=== PATIENT | male | born 1975 | race Caucasian/White ===

== ENCOUNTER 2021-12-09 07:31 | Observation (INO) | payer OTHER, SELFPAY ==
[2021-12-09] VITALS (14 sets, daily range): BP systolic 127–159; BP diastolic 82–98; PULSE 68–83; RESP 18–20; TEMP 36.2–36.6; O2SAT 93–97; BMI 36.2; BMI 36.9
--- NOTE | 2021-12-09 08:28 | ED.GENADULT ---
HPI - General Adult General Date Seen: 12/09/21 Chief complaint: Abdominal Pain Stated complaint: Pancreatitis Time Seen by Provider: 12/09/21 08:04 Source: patient History of Present Illness HPI narrative: Patient is a 46-year-old male who comes in saying he has been diagnosed previously with pancreatic insufficiency. He takes enzymes for that, says he has been prescribed amitriptyline for his symptoms as well although that interacted with his buspirone. He had been on disability for 3 months, but says his FMLA and he has been back at work for the past several days. He feels he was sent back to work prematurely. For the past couple of mornings, he says he has woken up with nausea and dry heaves as well as epigastric pain. Appetite has been decreased. Pain is crampy, moderate, does not radiate. He has not had any vomiting. He took some Zofran this morning for his symptoms. He has also had headache and fatigue. He has not had any fever. He has chronic diarrhea, nonbloody. He has not had any chest pain or difficulty breathing. No urinary symptoms such as dysuria, hematuria, frequency, although he has had decreased output and feels his urine is dark. He normally gets his medical care in [place]. He does follow with a medical services manager through [facility]. Related Data Home Medications Medication Instructions Recorded Confirmed buspirone 10 mg tablet 10 mg PO TID 12/09/21 12/09/21 glipizide 10 mg tablet, extended 10 mg PO BIDWM 12/09/21 12/09/21 release 24 hr insulin degludec 100 unit/mL (3 160 unit SUBCUT QPM 12/09/21 12/09/21 mL) subcutaneous pen (Tresiba FlexTouch U-100 insulin) lipase 37,000-protease 2 cap PO TIDWM 12/09/21 12/09/21 97,300-amylase 149,900 unit capsule,delayed rel (Pancreaze) lisinopril 10 mg tablet 10 mg PO DAILY 12/09/21 12/09/21 lorazepam 1 mg tablet 1 mg PO TID PRN 12/09/21 12/09/21 ondansetron 4 mg disintegrating 4 mg PO TID PRN 12/09/21 12/09/21 tablet Allergies Allergy/AdvReac Type Severity Reaction Status Date / Time clindamycin Allergy Verified 12/09/21 07:46 diphenhydramine Allergy Verified 12/09/21 07:46 dulaglutide Allergy Verified 12/09/21 07:46 erythromycin base Allergy Verified 12/09/21 07:46 Penicillins Allergy Verified 12/09/21 07:46 vancomycin Allergy Verified 12/09/21 07:46 bactrim Allergy Uncoded 12/09/21 07:46 metform Allergy Uncoded 12/09/21 07:46 Review of Systems Status of ROS: Reports: 10 or more systems reviewed and unremarkable except as noted in History and below [facility] Medical History (Updated 12/09/21 @ 14:28 by Ramirez Chinchilla MD) Anxiety Chronic pancreatitis Diabetes mellitus type 2 in obese Obesity Pancreatic insufficiency Family History (Updated 12/09/21 @ 14:23 by Ramirez Chinchilla MD) Mother Crohn's disease Autoimmune disease of liver Cirrhosis of liver Father Colon cancer Social History (Updated 12/09/21 @ 14:24 by Ramirez Chinchilla MD) Narrative: He lives in [place] with his and 18-year-old daughter. is healthcare power of united [place] attorney. 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 He has been temporarily on disability. He does not smoke, drink alcohol or use recreational drugs. Code status is full. Smoking Status: Never smoker Do you use any of these nicotine containing products: None Second hand tobacco smoke exposure: No How often do you have a drink containing alcohol: never AUDIT-C Alcohol total score: 0 Non-prescribed substance use: denies use service: No Exam Narrative: Exam Narrative: Vital signs as noted above. In general, an alert, well-appearing patient. Head: Normocephalic, atraumatic. Eyes: Pupils are equal reactive. Extraocular movements are full. Conjunctivae are normal. ENT: Mucous membranes are moist. Throat is normal. Neck: Supple without lymphadenopathy. Heart: Regular rate and rhythm. No murmur or rub. Lungs: Clear bilaterally. No increased work of breathing, crackles or wheezes. Abdomen: Soft and nondistended. Mild epigastric tenderness without rebound guarding or rigidity. No organomegaly. Extremities: Well perfused. No edema. No calf tenderness. Pulses intact. Neurologic: Patient is alert and oriented to person and place. Speech is fluent. Face is symmetric. Moves all extremities equally. Affect: Normal. Skin: Warm and dry. Well perfused. Const: Vital Signs, click to edit/add: Vital Signs - 24 hr 12/09/21 07:46 12/09/21 08:04 12/09/21 08:30 Temperature 97.2 F L Pulse Rate [Pulse Oximeter] 81 83 81 Respiratory Rate 18 18 Blood Pressure [Ri ght Upper Arm] 138/82 127/92 H 131/89 Pulse Oximetry 94 93 93 12/09/21 09:00 12/09/21 09:30 12/09/21 10:00 Temperature Pulse Rate [Pulse Oximeter] 71 81 70 Respiratory Rate 18 Blood Pressure [Ri ght Upper Arm] 130/86 131/90 H 132/90 H Pulse Oximetry 94 94 97 12/09/21 10:30 12/09/21 11:00 12/09/21 12:00 Temperature Pulse Rate [Pulse Oximeter] 74 83 68 Respiratory Rate 18 Blood Pressure [Ri ght Upper Arm] 138/90 H 139/95 H 133/87 Pulse Oximetry 97 97 95 12/09/21 12:30 Temperature Pulse Rate [Pulse Oximeter] 77 Respiratory Rate Blood Pressure [Ri ght Upper Arm] 140/97 H Pulse Oximetry 97 Course Course Hospital Course: We will go ahead and place an IV, give of 1000 mL of normal saline and some Toradol. He took Zofran at home. Labs are pending. Vital signs are reassuring. He does not look toxic. Diagnostic considerations include pancreatitis, gastritis/peptic ulcer disease, gastroenteritis, diverticulitis, colitis, cholecystitis, hepatitis. Patient felt improved after Toradol. Nausea was controlled by his own Zofran from home. Did not have any vomiting. His labs were overall reassuring, white count was normal, hemoglobin 15.6. Electrolytes were normal. Blood sugar was 169. LFTs notable for an AST of 40, ALT was normal. Bilirubin was normal, as was alk-phos. His lipase did return elevated at 771. I reviewed his previous records. He has had a previous admission here for pancreatitis. He has had previous CT scanning, has not shown evidence of pancreatic inflammation on imaging. He tells me he has had an endoscopic ultrasound via GI, he apparently had a small pancreatic cyst but other chandler no abnormalities. At this time, I do not think there is probably benefit to CT scanning given otherwise normal labs. He is afebrile, abdominal exam is benign. I do think he would benefit from admission for hydration, pain control and bowel rest. At this time, he is comfortable after Toradol. We are awaiting bed on the floor, at this time we do not have any available beds but I am told that we should have some within the next couple of hours, so we will plan to keep him here for admission. Reevaluation(s) Reevaluation #1: Patient did have increasing pain here, will be given morphine 4 mg for further pain control. Vital signs remained stable. Vital Signs Vital signs: Initial Vital Signs Temperature 97.2 F L 12/09/21 07:46 Temperature Source Temporal Artery Scan 12/09/21 07:46 Pulse Rate 81 12/09/21 07:46 Pulse Rhythm 12/09/21 07:46 Respiratory Rate 18 12/09/21 07:46 Blood Pressure 138/82 12/09/21 07:46 Blood Pressure Mean 100 12/09/21 07:46 Pulse Oximetry 94 12/09/21 07:46 Oxygen Delivery Method 12/09/21 07:46 Vital Signs Temperature 97.2 F L 12/09/21 07:46 Pulse Rate 81 12/09/21 07:46 Respiratory Rate 18 12/09/21 07:46 Blood Pressure 138/82 12/09/21 07:46 Pulse Oximetry 94 12/09/21 07:46 Temperature 97.2 F L 12/09/21 07:46 Pulse Rate 77 12/09/21 12:30 Respiratory Rate 18 12/09/21 12:00 Blood Pressure 140/97 H 12/09/21 12:30 Pulse Oximetry 97 12/09/21 12:30 Medical Decision Making Lab Data Labs: Lab Results 12/09/21 12/09/21 12/09/21 Range/Units 08:25 08:25 08:25 WBC 6.37 (4.50-11.00) K/uL RBC 5.42 (4.30-5.90) m/uL Hgb 15.6 (13.5-17.5) gm/dL Hct 45.5 (37.0-53.0) % MCV 84 (80-100) fL MCH 29 (26-34) pg MCHC 34 (32-36) gm/dL RDW Coeff of Usman 12.0 (11.5-15.5) % Plt Count 163 (140-440) K/uL Neut % (Auto) 73.0 H (42.0-72.0) % Lymph % (Auto) 17.9 L (20-44) % [place] % (Auto) 7.2 (0.0-11.0) % Eos % (Auto) 1.4 (0.0-7.0) % Baso % (Auto) 0.3 (0.0-3.0) % Neut # (Auto) 4.70 (1.7-7.0) K/uL Lymph # (Auto) 1.10 (0.90-2.90) K/uL [place] # (Auto) 0.50 (0.00-0.90) K/UL Eos # (Auto) 0.09 (0.00-0.50) K/uL Baso # (Auto) 0.02 (0.00-0.30) K/uL Abs Immat Gran (auto) 0.01 (0.00-0.30) K/uL Sodium 138 (135-149) mmol/L Potassium 4.6 (3.6-5.1) mmol/L Chloride 105 (96-114) mmol/L Carbon Dioxide 27 (20-32) mmol/L BUN 19 (5-24) mg/dL Creatinine 0.9 (0.5-1.5) mg/dL Estimated Creat Clear 104.74 Estimated GFR 108 ml/min Glucose 169 H (60-115) mg/dL Lactate 1.4 (0.5-1.9) mmol/L Calcium 9.1 (8.4-10.6) mg/dL Total Bilirubin (0.1-1.5) mg/dL Direct Bilirubin (0.0-0.5) mg/dL AST (12-35) U/L ALT (4-50) U/L Alkaline Phosphatase (40-150) U/L C-Reactive Protein 0.7 (0.5-1.0) mg/dL Total Protein (6.0-8.3) g/dL Albumin (3.3-5.0) g/dL Lipase 771 H (23-300) U/L Ethyl Alcohol < 0.01 L (0.01-0.03) % SARS-CoV-2 (PCR) (Negative) 12/09/21 12/09/21 Range/Units 08:25 10:45 WBC (4.50-11.00) K/uL RBC (4.30-5.90) m/uL Hgb (13.5-17.5) gm/dL Hct (37.0-53.0) % MCV (80-100) fL MCH (26-34) pg MCHC (32-36) gm/dL RDW Coeff of Usman (11.5-15.5) % Plt Count (140-440) K/uL Neut % (Auto) (42.0-72.0) % Lymph % (Auto) (20-44) % [place] % (Auto) (0.0-11.0) % Eos % (Auto) (0.0-7.0) % Baso % (Auto) (0.0-3.0) % Neut # (Auto) (1.7-7.0) K/uL Lymph # (Auto) (0.90-2.90) K/uL [place] # (Auto) (0.00-0.90) K/UL Eos # (Auto) (0.00-0.50) K/uL Baso # (Auto) (0.00-0.30) K/uL Abs Immat Gran (auto) (0.00-0.30) K/uL Sodium (135-149) mmol/L Potassium (3.6-5.1) mmol/L Chloride (96-114) mmol/L Carbon Dioxide (20-32) mmol/L BUN (5-24) mg/dL Creatinine (0.5-1.5) mg/dL Estimated Creat Clear Estimated GFR ml/min Glucose (60-115) mg/dL Lactate (0.5-1.9) mmol/L Calcium (8.4-10.6) mg/dL Total Bilirubin 0.6 (0.1-1.5) mg/dL Direct Bilirubin 0.2 (0.0-0.5) mg/dL AST 40 H (12-35) U/L ALT 40 (4-50) U/L Alkaline Phosphatase 67 (40-150) U/L C-Reactive Protein (0.5-1.0) mg/dL Total Protein 7.4 (6.0-8.3) g/dL Albumin 4.1 (3.3-5.0) g/dL Lipase (23-300) U/L Ethyl Alcohol (0.01-0.03) % SARS-CoV-2 (PCR) Negative SARS-CoV-2 (Negative) Discharge Plan Discharge Clinical Impression: Pancreatitis Patient Disposition: Admitted As Inpatient Condition: Stable
[2021-12-09 08:42] LABS: Lactate* 1.4 mmol/L (0.5-1.9)
[2021-12-09 08:43] LABS: Basophils Absolute Auto 0.02 K/uL (0.00-0.30); Basophils Percent Auto 0.3 % (0.0-3.0); Eosinophils Absolute Auto 0.09 K/uL (0.00-0.50); Eosinophils Percent Auto 1.4 % (0.0-7.0); Hematocrit 45.5 % (37.0-53.0); Hemoglobin* 15.6 gm/dL (13.5-17.5); Immature Granulocytes Abs Auto 0.01 K/uL (0.00-0.30); Lymphocytes Percent Auto 17.9 % (20-44); Mean Corpuscular HGB Conc 34 gm/dL (32-36); Mean Corpuscular Hemoglobin 29 pg (26-34); Mean Corpuscular Volume 84 fL (80-100); Monocytes Percent Auto 7.2 % (0.0-11.0); Platelet Count* 163 K/uL (140-440); Red Blood Count 5.42 m/uL (4.30-5.90); White Blood Count* 6.37 K/uL (4.50-11.00)
[2021-12-09] MEDS: KETOROLAC 15 MG/ML inj IVP (08:43)
[2021-12-09] MEDS: 0.9 % SODIUM CHLORIDE 1000 ml 1,000 ML IV (08:43)
[2021-12-09 08:53] LABS: Slide Review Reflex No
[2021-12-09 09:03] LABS: Albumin* 4.1 g/dL (3.3-5.0)
[2021-12-09 09:06] LABS: Alanine Aminotransferase* 40 U/L (4-50); Alkaline Phosphatase* 67 U/L (40-150); Aspartate Amino Transferase* 40 U/L (12-35); Bilirubin Direct* 0.2 mg/dL (0.0-0.5); Bilirubin Total* 0.6 mg/dL (0.1-1.5); Total Protein* 7.4 g/dL (6.0-8.3)
[2021-12-09 09:14] LABS: Chloride* 105 mmol/L (96-114); Potassium* 4.6 mmol/L (3.6-5.1); Sodium* 138 mmol/L (135-149)
[2021-12-09 09:16] LABS: Blood Urea Nitrogen* 19 mg/dL (5-24); Carbon Dioxide* 27 mmol/L (20-32); Creatinine* 0.9 mg/dL (0.5-1.5); Est. Creatinine Clearance* 104.74; Estimated Glomerular Filt Rate 108 ml/min; Lipase* 771 U/L (23-300)
[2021-12-09 09:17] LABS: Calcium* 9.1 mg/dL (8.4-10.6); Glucose* 169 mg/dL (60-115)
[2021-12-09 09:19] LABS: C Reactive Protein* 0.7 mg/dL (0.5-1.0)
[2021-12-09 09:21] LABS: Ethanol* < 0.01 % (0.01-0.03)
--- NOTE | 2021-12-09 12:10 | W.PC.EDHO ---
Primary Language: Preferred Language: Orientation Status: [] Alert & Oriented [] Slight Confusion [] Known Dx Dementia Transfers By: [] Assist of 1 [] Assist of 2 [] Lift Active Medications Discontinued Medications Generic Name Dose Route Start Last Admin Trade Name Silvia PRN Reason Stop Dose Admin Sodium Chloride 1,000 mls @ 1,000 mls/hr 12/09/21 08:30 12/09/21 09:36 0.9 % Sodium Chloride 1000 Ml IV 12/09/21 09:29 Infused .Q1H [facility] Infusion Ketorolac Tromethamine 15 mg 12/09/21 08:24 12/09/21 08:43 Ketorolac 15 Mg/Ml Inj IVP 12/09/21 08:25 15 mg ONCE ONE Administration Description of Symptoms ED Triage Present Problem has been not working due to pancreatic Description insufficiency and diabetes for the past 3 months. was hospitalized in august for a week here. went back to work on monday. Sxs have been worsening, abd pain, nausea, vomiting bile. has no appetite, fatigued, headache, feeling dehydrated. ED Triage Date of Onset of 12/06/21 Symptoms Female History Patient No Pain Pain Description [Upper Pressure,Tender,With Movement Abdomen] Pain Description [Upper Pressure,Dull, Achy,Tender,With Movement Abdomen] Pain Radiation Location [Upper to right side Abdomen] Pain Intensity [Upper Abdomen] 7 Pain Intensity [Upper Abdomen] 6 Pain Intensity 5 Pain Intensity 4 Pain Intensity 7 Pain Intensity 7 Pain Intensity 7 Pain Scale Used [Upper Abdomen Numeric (1 - 10) ] Pain Scale Used [Upper Abdomen Numeric (1 - 10) ] Pain Scale Used Numeric (1 - 10) Pain Scale Used Numeric (1 - 10) Pain Scale Used Numeric (1 - 10) Pain Scale Used Numeric (1 - 10) Pain Scale Used Numeric (1 - 10) IV Insertion/Site Date of IV Line Insertion [ 12/09/21 Left Hand] Oxygen Administration Pulse Oximetry 93 Pulse Oximetry 93 Pulse Oximetry 94 Oxygen Delivery Method Room Air Oxygen Delivery Method Room Air Oxygen Delivery Method Room Air
[2021-12-09 12:14] LABS: SARS PCR* Negative SARS-CoV-2 (Negative)
[2021-12-09] MEDS: MORPHINE 4 MG/ML INJ IVP ×3 (12:36→19:29)
--- NOTE | 2021-12-09 12:39 | ED.NURSE ---
was seen per dr soria. has had 4 mg iv ms. pain was 8/10. festus is here.
[2021-12-09] MEDS: PANCREALIPASE (12,38,60) CAP 3 CAP PO (13:47)
[2021-12-09] MEDS: LACTATED RINGERS 1000 ML 1,000 ML 150 ML IV ×2 (13:52→20:43)
--- NOTE | 2021-12-09 14:07 | P.IMHP_ITS ---
Hospitalist- H&P: HPI History of Present Illness Date Seen: 12/09/21 Chief complaint: Pancreatitis Narrative: Kaiden Reyna is a 46 year old male presents with acute on chronic epigastric pain. This week he has had worsening of his chronic epigastric pain, subjective fever, anorexia and nausea with 1 emesis. He has been avoiding eating as it makes his pain and nausea worse. He has previous history of chronic pancreatitis and pancreatic insufficiency. He was hospitalized here July 26 to 2021 for similar problems. At that time he had CT of the abdomen and pelvis which was unremarkable except for fatty liver. MRCP was also unremarkable. He has had mild elevation of lipase on and off over the past year associated with abdominal pain. Since July he reports his abdominal pain it has been constant. It is epigastric. Sometimes it does go through to his back. When his abdominal pain flares he notes that he has nausea and loss of appetite. His abdominal pain flares it does increase his pain when he eats. He particularly notes he sensitive to eating meat which makes him worse. He has been to [facility] where he has had fairly extensive evaluation for idiopathic pancreatitis. They have initiated treatment with pancreatic enzyme replacement with pancrelipase. That has helped his stools become more firm. He is currently taking 2 tablets with each meal. Evaluation has included an colonoscopy including the terminal ileum in August which was unremarkable and endoscopic ultrasound which showed fatty liver and scattered nonspecific pancreatic parenchymal changes. He was given a trial of nortriptyline which if anything made him feel worse. He still has his gallbladder in place. Evaluation has not shown any evidence of gallbladder disease, gallstones or biliary obstruction. He does not drink alcohol. He does give a family history of mother and maternal grandmother both having pancreatic and hepatic disease. Mom had cirrhosis of the liver that was possibly autoimmune. I believe she also had Crohn's disease. Maternal grandmot her may have also had some form of autoimmune liver disease. Review of Systems Narrative: Patient reports that he has been generally feeling well except as noted above. He does report chronic epigastric pain which has flared up this week. He has had poor p.o. intake, nausea and 1 emesis. Stools tend to be low on the loose side. Rarely he gets constipated which is painful for him. No blood in his stool. He has a subjective sense of fever. [facility] Medical History (Updated 12/09/21 @ 14:28 by Ramirez Chinchilla MD) Anxiety Chronic pancreatitis Diabetes mellitus type 2 in obese Obesity Pancreatic insufficiency Family History (Updated 12/09/21 @ 14:23 by Ramirez Chinchilla MD) Mother Crohn's disease Autoimmune disease of liver Cirrhosis of liver Father Colon cancer Social History (Updated 12/09/21 @ 14:24 by Ramirez Chinchilla MD) Narrative: He lives in [place] with his and 18-year-old daughter. is healthcare power of visual journalist. 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 He has been temporarily on disability. He does not smoke, drink alcohol or use recreational drugs. Code status is full. Smoking Status: Never smoker Do you use any of these nicotine containing products: None Second hand tobacco smoke exposure: No How often do you have a drink containing alcohol: never AUDIT-C Alcohol total score: 0 Non-prescribed substance use: denies use service: No Meds Home Medications and Allergies Home Medications Medication Instructions Recorded Confirmed Type buspirone 10 mg tablet 10 mg PO TID 12/09/21 12/09/21 History glipizide 10 mg tablet, extended 10 mg PO BIDWM 12/09/21 12/09/21 History release 24 hr insulin degludec 100 unit/mL (3 160 unit SUBCUT QPM 12/09/21 12/09/21 History mL) subcutaneous pen (Tresiba FlexTouch U-100 insulin) lipase 37,000-protease 2 cap PO TIDWM 12/09/21 12/09/21 History 97,300-amylase 149,900 unit capsule,delayed rel (Pancreaze) lisinopril 10 mg tablet 10 mg PO DAILY 12/09/21 12/09/21 History lorazepam 1 mg tablet 1 mg PO TID PRN 12/09/21 12/09/21 History ondansetron 4 mg disintegrating 4 mg PO TID PRN 12/09/21 12/09/21 History tablet Allergies Allergy/AdvReac Type Severity Reaction Status Date / Time clindamycin Allergy Verified 12/09/21 07:46 diphenhydramine Allergy Verified 12/09/21 07:46 dulaglutide Allergy Verified 12/09/21 07:46 erythromycin base Allergy Verified 12/09/21 07:46 Penicillins Allergy Verified 12/09/21 07:46 vancomycin Allergy Verified 12/09/21 07:46 bactrim Allergy Uncoded 12/09/21 07:46 metform Allergy Uncoded 12/09/21 07:46 Exam Narrative: Exam Narrative: He is alert and appears in no distress. He gives his own history with good detail. Eyes are normal. Sclerae nonicteric. Oropharynx is normal. Neck is supple without mass or adenopathy. Respirations are clear to auscultation. No wheezing rales or rhonchi. Cardiovascular: S1, S2, regular rate and rhythm. No murmur gallop or rub. Abdomen: Bowel sounds active. Abdomen is soft. He has mild to moderate epigastric tenderness. There is no mass. No peritonitis. External genitalia normal. Extremities with intact pulses and sensation. He moves all 4 extremities well. Good capillary refill. Trace ankle edema bilaterally. Const: Vital Signs, click to edit/add: Vital Signs - 24 hr 12/09/21 07:46 12/09/21 08:04 12/09/21 08:30 Temperature 97.2 F L Pulse Rate [Pulse Oximeter] 81 83 81 Respiratory Rate 18 18 Blood Pressure [Ri ght Upper Arm] 138/82 127/92 H 131/89 Pulse Oximetry 94 93 93 Documenting provider has reviewed patient's vital signs: yes Hospitalist - H&P: Result Labs Labs: Short CBC 12/09/21 Range/Units 08:25 WBC 6.37 (4.50-11.00) K/uL Hgb 15.6 (13.5-17.5) gm/dL Hct 45.5 (37.0-53.0) % Plt Count 163 (140-440) K/uL [facility] 12/09/21 08:25 Sodium 138 Potassium 4.6 Chloride 105 Carbon Dioxide 27 BUN 19 Creatinine 0.9 Glucose 169 H Calcium 9.1 Liver Function 12/09/21 Range/Units 08:25 Total Bilirubin 0.6 (0.1-1.5) mg/dL Direct Bilirubin 0.2 (0.0-0.5) mg/dL AST 40 H (12-35) U/L ALT 40 (4-50) U/L Alkaline Phosphatase 67 (40-150) U/L Albumin 4.1 (3.3-5.0) g/dL Assessment and Plan Assessment and plan (1) Pancreatitis: Status: Acute Assessment and Plan: Patient appears to have an acute on chronic flare of pancreatitis. This is idiopathic. Further outpatient evaluation is pending. At this point there is no indication of a serious complication of his pancreatitis other than epigastric pain, nausea, vomiting and anorexia. He has not had imaging and I think we can hold off on imaging unless he is not improving or at any point getting worse. Will allow him to eat as he tolerates. IV pain medications, antiemetics, IV fluids. (2) Chronic pancreatitis: Status: Acute Assessment and Plan: Idiopathic (3) Pancreatic insufficiency: Status: Acute Assessment and Plan: Continue pancrelipase (4) Diabetes mellitus type 2 in obese: Status: Acute Assessment and Plan: Continue home regimen for diabetes with sliding scale insulin. Plan Discussed plan of care with the patient and his . At this point the cause of his pancreatic disease is uncertain. It appears most appropriate to do conservative medical management unless his illness becomes worse or more complicated. Total time spent today is 75 minutes, 40 minutes in coordination of care discussing with patient and other providers the evaluation and management of acute on chronic abdominal pain/acute on chronic pancreatitis.
[2021-12-09] MEDS: BUSPIRONE 10 MG TABLET PO ×2 (14:11→20:44)
--- NOTE | 2021-12-09 15:35 | PC.NURSE ---
Patient admitted from ED via w/c to room 279 at 12:54 pm. Initial physical assessment competed by primary care RN. Deepali and dtr Diane present for initial assessment. Pt's BG 82 and he received some cranberry and apple juice. Pt to judiciously select his meals secondary to his chronic pancreatitis, pt verbalized understanding of low fat diet, he is to avoid greasy, spicy and acidic food. Pancrealipase 3 capsules provided prior to his lunch tray. LR running at 150cc/hr. Pt received morphine 4mg slow IVP for substernal pain 6 out of 10 with his scheduled dose of buspar. Pt stated he will have his bring in his tresiba pen. Pt has SQ glucose monitor in place, no insulin pump. Report to Anayeli Bashir RN for evening shift.
[2021-12-09] MEDS: ONDANSETRON 2 MG/ML inj 4 MG IVP ×3 (15:38→23:26)
[2021-12-09] MEDS: KETOROLAC 30 MG/ML inj 15 MG IVP (15:38)
--- NOTE | 2021-12-09 23:17 | PC.NURSE ---
Patient reporting nausea this shift along with upper abdominal pain. Zofran, Toradol and Morphine given with relief. Patient states that he is feeling much better this evening. Monitoring blood glucose via Freestyle monitor. Blood sugar at bedtime was 96. Juice given per patient request and insulin not given. Patient had an increased pain after attempting to eat a regular diet for lunch. Patient did not have anything to eat for evening meal. Took clear liquids only.
[2021-12-09] MEDS: LORazepam 1 MG TABLET PO (23:26)
[2021-12-10 00:41] VITALS: BP 132/97; PULSE 82; RESP 16; TEMP 36.4; O2SAT 95
[2021-12-10] MEDS: LACTATED RINGERS 1000 ML 1,000 ML 150 ML IV ×2 (02:25→08:43)
[2021-12-10 04:11] VITALS: BP 139/82; PULSE 78; RESP 16; TEMP 36.7; O2SAT 94
--- NOTE | 2021-12-10 05:02 | PC.NURSE ---
VSS RA. Denies pain. Zofran given for mild nausea. Ativan given for sleep/nausea as well. Bowel tones hypoactive. Tolerating clear liquids and IVF cont's. Up ad mitzi ind w/cares
[2021-12-10 07:45] VITALS: PULSE 80; RESP 16
[2021-12-10 08:00] VITALS: BP 160/99; PULSE 80; RESP 16; TEMP 36.4; O2SAT 98
[2021-12-10] MEDS: ONDANSETRON 2 MG/ML inj 4 MG IVP (08:42)
[2021-12-10] MEDS: MORPHINE 4 MG/ML INJ IVP (08:42)
[2021-12-10] MEDS: BUSPIRONE 10 MG TABLET PO (08:43)
[2021-12-10] MEDS: lisinopriL 10 MG TABLET PO (08:43)
--- NOTE | 2021-12-10 09:05 | NUTR.NU ---
Nutrition Update: Patient admitted to hospital with acute on chronic pancreatitis. Pt was admitted to hospital from 07/26/21 to 07/28/21 for pancreatitis and received diet education related to pancreatitis on 07/27/21. Pt received and accepted diet education related to pancreatitis within the last 6 months - RDN will not provide diet education at this time. RDN will monitor and follow-up prn.
[2021-12-10 10:02] LABS: HCO3 VBG 27 mmol/L (21-28); Lactate* 1.3 mmol/L (0.5-1.9); PCO2 VBG 40 mmHG (40-50); PO2 VBG 63.2 mmHG (25-47); pH VBG 7.447 (7.32-7.43)
[2021-12-10 10:06] LABS: Hematocrit 44.2 % (37.0-53.0); Hemoglobin* 15.1 gm/dL (13.5-17.5); Mean Corpuscular HGB Conc 34 gm/dL (32-36); Mean Corpuscular Hemoglobin 29 pg (26-34); Mean Corpuscular Volume 85 fL (80-100); Platelet Count* 162 K/uL (140-440); Red Blood Count 5.22 m/uL (4.30-5.90); White Blood Count* 7.27 K/uL (4.50-11.00)
[2021-12-10 10:12] LABS: Slide Review Reflex No
[2021-12-10 10:21] LABS: Albumin* 3.8 g/dL (3.3-5.0); Chloride* 106 mmol/L (96-114)
[2021-12-10 10:22] LABS: Sodium* 137 mmol/L (135-149)
[2021-12-10 10:23] LABS: Hemoglobin A1C* 8.29 % (0-5.6)
[2021-12-10 10:24] LABS: Bilirubin Total* 0.5 mg/dL (0.1-1.5); Creatinine* 0.8 mg/dL (0.5-1.5); Est. Creatinine Clearance* 117.83; Estimated Glomerular Filt Rate 112 ml/min
[2021-12-10 10:25] LABS: Alanine Aminotransferase* 37 U/L (4-50); Alkaline Phosphatase* 62 U/L (40-150); Aspartate Amino Transferase* 37 U/L (12-35); Blood Urea Nitrogen* 13 mg/dL (5-24); Calcium* 8.6 mg/dL (8.4-10.6); Carbon Dioxide* 24 mmol/L (20-32); Cholesterol* 172 mg/dL (90-199); Gamma Glutamyl Transpeptidase* 41 U/L (8-55); Glucose* 152 mg/dL (60-115); Lipase* 117 U/L (23-300); Magnesium* 1.9 mg/dL (1.5-2.6); Total Protein* 6.7 g/dL (6.0-8.3); Triglycerides* 109 mg/dL (40-149)
[2021-12-10 10:26] LABS: HDL Cholesterol* 35 mg/dL (>=40); LDL Cholesterol Calculated 115 mg/dL (<100)
[2021-12-10 10:34] LABS: NT Pro B Type NatriureticPept* 112 PG/mL (0-125)
[2021-12-10 10:35] LABS: Iron* 67 ug/dL (49-181)
[2021-12-10 10:37] LABS: C Reactive Protein* < 0.5 mg/dL (0.5-1.0)
[2021-12-10 10:45] LABS: Percent Iron Saturation 22 % (20-50); Total Iron Binding Capacity 301 ug/dL (261-462)
[2021-12-10] MEDS: PANCREALIPASE (12,38,60) CAP 3 CAP PO (11:51)
--- NOTE | 2021-12-10 17:36 | PM.DS1 ---
DS: Providers Provider Date Seen: 12/10/21 Date of admission: 12/09 Primary care physician: Gallo Mejia MD Admitting Clinician: [facility] Service Attending Physician on discharge: Mariel Ross MD [facility] Date of Discharge: 12/10/21 DS: Diagnosis Discharge Diagnosis (1) Diabetes mellitus type 2 in obese: Status: Acute (2) Chronic pancreatitis: Status: Acute (3) Pancreatic insufficiency: Status: Acute (4) Pancreatitis: Status: Acute DS: Summary Hospital Course Hospital Course: HOSPITALIST DISCHARGE SUMMARY ATTENDING PHYSICIAN: Mariel Ross MD FINAL DIAGNOSIS: Chronic pancreatitis Pain crisis Dehydration HOSPITAL FOLLOWUP ISSUES: 1. Gastroenterology subspecialty as planned by [facility] and [place] [facility] this fall REFERRALS WHILE ADMITTED: None REFERRALS AFTER DISCHARGE: None BRIEF HOSPITAL COURSE: Patient has chronic pancreatitis. His pain, history is not new. Please see H&P for further detail. Overnight he did well. He felt much improved when I saw him this morning. He was able to tolerate food. His pain was minimal. He did like the IV Toradol he was given and will be given a trial of 5 days of oral ketorolac VITAL SIGN, MEDICATION, LAB/MICRO, IMAGING SUMMARY (full details available in account tabs or by records request) Lipase down trended significantly DISCHARGE MEDICATIONS: See Reconciled list REVIEW OF SYSTEMS No new chest pain or dyspnea Pain controlled No voiding difficulties Tolerating diet challenge PHYSICAL EXAM: CONSTITUTIONAL: Well-appearing VITAL SIGNS: see record. HEENT: Normocephalic, atraumatic. PERRL, EOMI, conjunctivae pink, no scleral icterus. Ears and nose externally normal. Pharynx normal. NECK: No JVD. No carotid bruit, no thyromegaly, no adenopathy. CHEST: Clear to auscultation bilaterally. HEART: S1 and S2 normal. Edema ABDOMEN: Soft, nontender. Normal bowel sounds. MUSCULOSKELETAL: No gross joint deformity or swelling. NEURO: Cranial nerves intact. Grossly intact. No asymmetric findings. SKIN: No rashes, petechiae, concerning changes PSYCHIATRIC: Mood euthymic. DISPOSITION: Home Time spent on discharge 37 minutes. Status at Discharge Overall status at discharge: patient is back to baseline Time Spent with Patient Time attestation: Total time spent providing and/or coordinating discharge services: Exam Const: Vital Signs, click to edit/add: Vital Signs - 24 hr 12/09/21 19:00 12/10/21 00:41 12/10/21 04:11 Temperature 98 F 97.6 F 98.1 F Pulse Rate [Left A pical] 72 82 78 Respiratory Rate 20 16 16 Blood Pressure [Ri ght Arm] 159/98 H 132/97 H 139/82 Pulse Oximetry 97 95 94 12/10/21 07:45 12/10/21 08:00 Temperature 97.6 F Pulse Rate [Left A pical] 80 80 Respiratory Rate 16 16 Blood Pressure [Ri ght Arm] 160/99 H Pulse Oximetry 98 DS: Data Data Completed and Pending Labs on day of discharge: Labs from last 24 hours 12/10/21 12/10/21 12/10/21 09:44 09:44 09:44 WBC RBC Hgb Hct MCV MCH MCHC Plt Count VBG pH 7.447 H VBG pCO2 40 VBG pO2 63.2 H VBG HCO3 27 Sodium Potassium Chloride Carbon Dioxide BUN Creatinine Estimated Creat Clear Estimated GFR Glucose Hemoglobin A1c 8.29 H Lactate 1.3 Calcium Magnesium Iron TIBC % Saturation Ferritin 238.0 Total Bilirubin GGT AST ALT Alkaline Phosphatase C-Reactive Protein NT-Pro-B Natriuret Pep Total Protein Albumin Triglycerides Cholesterol LDL Cholesterol, Calc HDL Cholesterol Lipase TSH 1.500 12/10/21 12/10/21 12/10/21 09:44 09:44 09:44 WBC 7.27 RBC 5.22 Hgb 15.1 Hct 44.2 MCV 85 MCH 29 MCHC 34 Plt Count 162 VBG pH VBG pCO2 VBG pO2 VBG HCO3 Sodium 137 Potassium 4.0 Chloride 106 Carbon Dioxide 24 BUN 13 Creatinine 0.8 Estimated Creat Clear 117.83 Estimated GFR 112 Glucose 152 H Hemoglobin A1c Lactate Calcium 8.6 Magnesium 1.9 Iron 67 TIBC 301 % Saturation 22 Ferritin Total Bilirubin 0.5 GGT 41 AST 37 H ALT 37 Alkaline Phosphatase 62 C-Reactive Protein < 0.5 L NT-Pro-B Natriuret Pep 112 Total Protein 6.7 Albumin 3.8 Triglycerides 109 Cholesterol 172 LDL Cholesterol, Calc 115 H HDL Cholesterol 35 L Lipase 117 TSH Discharge Plan Discharge Disposition: Home, Self-Care Date of Admission: 12/10/21 10:09 Attending Provider on Discharge: Mariel Ross Primary Care Provider: Gallo Mejia Condition: Stable Anticipated Discharge Date/Time: 12/10/21 13:54 Discharge Medications: New ketorolac 10 mg tablet 10 mg PO TID 5 Days Qty: 15 0RF Continued buspirone 10 mg tablet 10 mg PO TID 0RF Label Comments: TAKE 1 TABLET BY MOUTH THREE TIMES DAILY Pancreaze 37,000-97,300- 149,900 unit capsule,delayed release(DR/EC) 2 cap PO TIDWM 0RF Label Comments: TAKE 2 CAPSULES BY MOUTH THREE TIMES DAILY WITH MEALS & 1 CAPSULE WITH EACH SNACK SWALLOWING WHOLE. DO NOT CRUSH, CHEW, AND/OR DIVIDE lisinopril 10 mg tablet 10 mg PO DAILY 0RF Label Comments: TAKE 1 TABLET BY MOUTH ONCE DAILY Tresiba FlexTouch U-100 100 unit/mL (3 mL) insulin pen 160 unit SUBCUT QPM 0RF lorazepam 1 mg tablet 1 mg PO TID PRN0RF glipizide 10 mg tablet extended release 24hr 10 mg PO BIDWM 0RF Label Comments: TAKE 1 TABLET BY MOUTH TWICE DAILY BEFORE MEALS ondansetron 4 mg tablet,disintegrating 4 mg PO TID PRN0RF Label Comments: DISSOLVE 1 TABLET IN MOUTH EVERY 8 HOURS NEEDED FOR NAUSEA AND VOMITING Discharge Orders: Discharge Order (Routine); Ordered 12/10/21 Ordered By: Mariel Ross Patient Education: Ketorolac (By mouth), Pancreatitis (GEN) Activity Level: Activity as Tolerated Discharge Diet: Diabetic Follow Up Appointments: Gallo Mejia MD [Primary Care Provider] - (As needed) Forms: [facility] Info Instructions
== END 2021-12-10 14:38 | disposition home or self-care (01) ==
LOC: ED 09:54 → MEDSURG 13:18
PROVIDERS: Family Medicine; Admitting Provider Family Medicine; Emergency Provider Emergency Medicine; PCP Family Medicine; Visit Provider Family Medicine
DX: K85.90 Acute pancreatitis without necrosis or infection, unspecified (principal); K86.1 Other chronic pancreatitis; K86.89 Other specified diseases of pancreas; E11.9 Type 2 diabetes mellitus without complications; Z79.4 Long term (current) use of insulin; E66.9 Obesity, unspecified
CPT/HCPCS: 36415; 80048; 80053; 80061; 80076; 82077; 82728; 82803; 82947; 82977; 83036; 83540; 83550; 83605; 83690; 83735; 83880; 84443; 85025; 85027; 86140; 87635; 96361; 96374; 96375; 96376; 99284; A9270; G0378; J1885; J2270; J2405; J7030; J7120

== ENCOUNTER 2021-12-21 06:47 | Emergency (ER) | payer OTHER, SELFPAY ==
[2021-12-21 06:56] VITALS: BP 152/106; PULSE 88; RESP 16; TEMP 37; O2SAT 97; BMI 36.9
--- NOTE | 2021-12-21 07:29 | ED_ITS ---
HPI - General Adult General Time Seen by Provider: 07:29 Date Seen: 12/21/21 Chief complaint: Unspecified Complaint, Adult Stated complaint: wound infection/multiple locations/feverish Time Seen by Provider: 12/21/21 07:18 Source: patient and RN notes reviewed Mode of arrival: ambulatory Limitations: no limitations History of Present Illness HPI narrative: Patient is a 46-year-old male ambulatory in the ER with complaint of possible secondary infection road rash. Last Monday he took a spill off of a scooter and got abrasions on his elbow areas as well as his knees. The left knee anteriorly as well as the left forearm hurts the most. States they are a bit more swollen last night. Nursing staff did look up his tetanus and it is up-to-date in 2018. He has felt a little feverish overnight but no documented temperature. He has nothing else in the way of symptoms to explain getting L such is cough cold symptoms, respiratory symptoms, no urinary symptoms, no change in any abdominal symptoms. He does state the knee hurt a bit I did offer patient x-ray of his knee while he was here but he did decline. Related Data Home Medications Medication Instructions Recorded Confirmed buspirone 10 mg tablet 10 mg PO TID 12/09/21 12/21/21 glipizide 10 mg tablet, extended 10 mg PO BIDWM 12/09/21 12/21/21 release 24 hr insulin degludec 100 unit/mL (3 160 unit subcut QPM 12/09/21 12/21/21 mL) subcutaneous pen (Tresiba FlexTouch U-100 insulin) lipase 37,000-protease 2 cap PO TIDWM 12/09/21 12/21/21 97,300-amylase 149,900 unit capsule,delayed rel (Pancreaze) lisinopril 10 mg tablet 10 mg PO DAILY 12/09/21 12/21/21 lorazepam 1 mg tablet 1 mg PO TID PRN 12/09/21 12/21/21 ondansetron 4 mg disintegrating 4 mg PO TID PRN 12/09/21 12/21/21 tablet amitriptyline 10 mg tablet mg 12/21/21 glucagon 1 mg solution for mg 12/21/21 injection (Glucagon Emergency Kit) ibuprofen 12/21/21 omeprazole 40 mg capsule,delayed mg 12/21/21 release pyridoxine (vitamin B6) 25 mg mg 12/21/21 tablet (Vitamin B-6) Previous Rx's Medication Instructions Recorded cephalexin 500 mg tablet 500 mg PO QID #28 tabs 12/21/21 Allergies Allergy/AdvReac Type Severity Reaction Status Date / Time clindamycin Allergy Verified 12/21/21 07:02 diphenhydramine Allergy Verified 12/21/21 07:02 dulaglutide Allergy Verified 12/21/21 07:02 erythromycin base Allergy Verified 12/21/21 07:02 Penicillins Allergy Verified 12/21/21 07:02 vancomycin Allergy Verified 12/21/21 07:02 bactrim Allergy Uncoded 12/21/21 07:02 Review of Systems Status of ROS: Reports: 6 or more systems reviewed and unremarkable except as noted in History and below [facility] Medical History (Updated 12/21/21 @ 07:41 by Qian Parra MD) Anxiety Chronic pancreatitis Diabetes mellitus type 2 in obese Obesity Pancreatic insufficiency Family History (Updated 12/09/21 @ 14:23 by Ramirez Chinchilla MD) Mother Crohn's disease Autoimmune disease of liver Cirrhosis of liver Father Colon cancer Social History (Updated 12/09/21 @ 14:24 by Ramirez Chinchilla MD) Narrative: He lives in [place] with his and 18-year-old daughter. is healthcare power of research attorney. 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 He has been temporarily on disability. He does not smoke, drink alcohol or use recreational drugs. Code status is full. Smoking Status: Never smoker Do you use any of these nicotine containing products: None Second hand tobacco smoke exposure: No How often do you have a drink containing alcohol: never AUDIT-C Alcohol total score: 0 Non-prescribed substance use: denies use service: No Exam Const: Vital Signs, click to edit/add: Vital Signs - 24 hr 12/21/21 06:56 Temperature 98.6 F Pulse Rate [Left P ulse Oximeter] 88 Respiratory Rate 16 Blood Pressure [Ri ght Upper Arm] 152/106 H Pulse Oximetry 97 Oxygen Delivery Me thod Room Air Documenting provider has reviewed patient's vital signs: yes Common normals: no apparent distress, oriented x3, no limitations, healthy appearing and alert General appearance: cooperative, comfortable and well kempt Nutritional appearance: overweight HENMT: Common normals: normocephalic, head/scalp atraumatic and hearing grossly normal bilaterally Head and scalp: normocephalic and atraumatic Eye: Common normals: PERRL, EOMs intact bilaterally, conjunctivae normal and no scleral icterus Conjunctiva: conjunctiva(e) normal Pupil: PERRL Neck & C-Spine: Common normals: no JVD Resp: Common normals: normal respiratory effort, no retractions, no use of accessory muscles and clear to auscultation bilaterally Auscultation: clear to auscultation bilaterally Cardio: Common normals: no JVD, regular rate, regular rhythm, S1 normal heart sound, S2 normal heart sound, no gallops, no clicks and no murmurs Rate: regular rate Rhythm: regular rhythm Heart sounds: S1 normal and S2 normal Extremity: Other: On the medial aspect of both forearms as well as on both elbows, there is scabbed areas. The 1 on the medial left forearm looks more erythematous around the scab and does have some heat. There is no fluctuance, there is no purulent drainage. He did show me the abrasions on the anterior knees and on my inspection these look clean dry and intact. He has no effusion along the joint line of this left knee. He can stand without difficulty. He is declining x- ray. Neuro: Common normals: oriented x3 Sensorium/orientation: alert Psych: Appearance: [facility] Course Course Hospital Course: Patient was evaluated, nursing staff did check his tetanus status and it is indeed up-to-date. I did look at an old records to see if we have any MRSA documentation are microbiology. We have no wound microbiology on him. He is allergic to clindamycin, erythromycin, penicillin, vancomycin, Bactrim. At this point I think I will cover him with a cephalosporin with Keflex and have him closely followed up with his primary. He has normal recent kidney function in our records. Vital Signs Vital signs: Initial Vital Signs Temperature 98.6 F 12/21/21 06:56 Temperature Source Temporal Artery Scan 12/21/21 06:56 Pulse Rate 88 12/21/21 06:56 Respiratory Rate 16 12/21/21 06:56 Blood Pressure 152/106 H 12/21/21 06:56 Blood Pressure Mean 121 12/21/21 06:56 Blood Pressure Position Standing 12/21/21 06:56 Pulse Oximetry 97 12/21/21 06:56 Oxygen Delivery Method 12/21/21 06:56 Vital Signs Temperature 98.6 F 12/21/21 06:56 Pulse Rate 88 12/21/21 06:56 Respiratory Rate 16 12/21/21 06:56 Blood Pressure 152/106 H 12/21/21 06:56 Pulse Oximetry 97 12/21/21 06:56 Oxygen Delivery Method 12/21/21 06:56 Temperature 98.6 F 12/21/21 06:56 Pulse Rate 88 12/21/21 06:56 Respiratory Rate 16 12/21/21 06:56 Blood Pressure 152/106 H 12/21/21 06:56 Pulse Oximetry 97 12/21/21 06:56 Oxygen Delivery Method 12/21/21 06:56 Critical Care Time Critical Care Time Critical Care Time: No Discharge Plan Discharge Clinical Impression: Abrasions of multiple sites, Abrasion, forearm with infection Patient Disposition: Home, Self-Care Condition: Stable Instructions: Abrasion (ED) Additional Instructions: Start Keflex as soon as possible and take as prescribed. Follow up with primary care provider this week, recommend with in the next 3 days for recheck of your wounds. Should you have progression of infection with increasing fevers, area of redness and swelling spreading, do need to seek re-evaluation. Prescriptions: New cephalexin 500 mg tablet 500 mg PO QID Qty: 28 0RF No Action buspirone 10 mg tablet 10 mg PO TID Label Comments: TAKE 1 TABLET BY MOUTH THREE TIMES DAILY Pancreaze 37,000-97,300- 149,900 unit capsule,delayed release(DR/EC) 2 cap PO TIDWM Label Comments: TAKE 2 CAPSULES BY MOUTH THREE TIMES DAILY WITH MEALS & 1 CAPSULE WITH EACH SNACK SWALLOWING WHOLE. DO NOT CRUSH, CHEW, AND/OR DIVIDE lisinopril 10 mg tablet 10 mg PO DAILY Label Comments: TAKE 1 TABLET BY MOUTH ONCE DAILY Tresiba FlexTouch U-100 100 unit/mL (3 mL) insulin pen 160 unit SUBCUT QPM lorazepam 1 mg tablet 1 mg PO TID PRN glipizide 10 mg tablet extended release 24hr 10 mg PO BIDWM Label Comments: TAKE 1 TABLET BY MOUTH TWICE DAILY BEFORE MEALS ondansetron 4 mg tablet,disintegrating 4 mg PO TID PRN Label Comments: DISSOLVE 1 TABLET IN MOUTH EVERY 8 HOURS NEEDED FOR NAUSEA AND VOMITING pyridoxine (vitamin B6) [Vitamin B-6] 25 mg tablet Label Comments: TAKE 1 TABLET BY MOUTH THREE TIMES DAILY omeprazole 40 mg capsule,delayed release(DR/EC) amitriptyline 10 mg tablet Label Comments: TAKE 1 TABLET BY MOUTH AT BEDTIME Glucagon Emergency Kit (human) 1 mg recon soln Label Comments: INJECT 1MG DIRECTED EACH TIME IF NEEDED (SYMPTOMATIC HYPOGLYCEMIA LESS THAN 50 AND NOT RESPONDING TO ORAL GLUCOSE ibuprofen Follow Up/Referrals: Gallo Mejia MD [Primary Care Provider] - Stand Alone Forms: [facility] Info Instructions
== END 2021-12-21 07:51 | disposition home or self-care (01) ==
PROVIDERS: Emergency Provider Family Medicine; PCP Family Medicine
DX: S50.812A Abrasion of left forearm, initial encounter (principal); L08.9 Local infection of the skin and subcutaneous tissue, unspecified
CPT/HCPCS: 99283; 99284

== ENCOUNTER 2022-04-14 09:09 | Outpatient (CLI) | payer OTHER, SELFPAY ==
--- OUTSIDE RECORDS SUMMARY | 2022-04-14 09:12 | XMS_ITS | Encounter Summary ---
:1975 Author Organization [facility] Address [address] [place] [address] Care Team Providers Name Role Phone Christine Marr MD Primary Care Provider [phone] Reason for Visit Reason Comments Chest Pain Shortness of Breath Encounter Details Date Type Department Care Team Description 06/20/2014 Emergency [facility] Polo Franco MD [facility] [address] [place] [address] Elevated blood pressure; [facility] Dimitry Cody MD [facility] [address] [place] [address] SOB (shortness of breath); [address] Chest pain. Likely vomiting induced esophagitis; [place], [place] Tachycardia; [id number] Vertigo; [phone] Concussion synd therese Social History Tobacco Use Types Packs/Day Years Used Date Smoking Tobacco: Never Smokeless Tobacco: Never Alcohol Use Standard Drinks/Week Comments No 0 (1 standard drink = 0.6 oz pure alcoho l) Sex Assigned at Date Recorded Not on file documented as of this encounter Last Filed Vital Signs Vital Sign Reading Time Taken Comments Blood Pressure 162/101 06/20/2014 6:50 PM [employer] Pulse 117 06/20/2014 4:01 PM [employer] Temperature 37.1 ??C (98.7 ??F) 06/20/2014 4:01 PM [employer] Respiratory Rate 20 06/20/2014 4:01 PM [employer] Oxygen Saturation 100% 06/20/2014 6:50 PM [employer] Inhaled Oxygen Concentration - - Weight 112.9 kg (249 lb) 06/20/2014 4:01 PM [employer] Height 175.3 cm (5' 9) 06/20/2014 4:01 PM [employer] Body Mass Index 36.77 06/20/2014 4:01 PM [employer] documented in this encounter Discharge Instructions Discharge InstructionsDimitry Cody MD - 06/20/2014 7:17 PM [employer] Discharge Instructions Chest Pain You have been seen today for chest pain or discomfort. At this time, your doctor has found no signs that your chest pain is due to a serious or life-threatening condition, (or you have declined more testing and/or admission to the hospital). However, sometimes there is a serious problem that does not show up right away. Your evaluation today may not be complete and you may need further testing and evaluation. You need to follow-up with your regular doctor within 3 days. Return to the Emergency Department if: ??? Your chest pain changes, gets worse, starts to happen more often, or comes with less activity. ??? You are short of breath. ??? You get very weak or tired. ??? You pass out or faint. ??? You have any new symptoms, like fever, cough, numb legs, or you cough up blood. ??? You have anything else that worries you. Until you follow-up with your regular doctor please do the following: ??? Take one aspirin daily unless you have an allergy or are told not to by your doctor. ??? If a stress test appointment has been made, go to the appointment. ??? If you have questions, contact your regular doctor. If your doctor today has told you to follow-up with your regular doctor, it is very important that you make an appointment with your clinic and go to the appointment. If you do not follow-up with your primary doctor, it may result in missing an important development which could result in permanent injury or disability and/or lasting pain. If there is any problem keeping your appointment, call your doctor or return to the Emergency Department. If you were given a prescription for medicine here today, be sure to read all of the information (including the package insert) that comes with your prescription. This will include important information about the medicine, its side effects, and any warnings that you need to know about. The pharmacist who fills the prescription can provide more information and answer questions you may have about the medicine. If you have questions or concerns that the pharmacist cannot address, please call or return to the Emergency Department. Opioid Medication Information Pain medications are among the most commonly prescribed medicines, so we are including this information for all our patients. If you did not receive pain medication or get a prescription for pain medicine, you can ignore it. You may have been given a prescription for an opioid (narcotic) pain medicine and/or have received apain medicine while here in the Emergency Department. These medicines can make you drowsy or impaired. You must not drive, operate dangerous equipment, or engage in any other dangerous activities whiletaking these medications. If you drive while taking these medications, you could be arrested for DUI, or driving under the influence. Do not drink any alcohol while you are taking these medications. Opioid pain medications can cause addiction. If you have a history of chemical dependency of any type, you are at a higher risk of becoming addicted to pain medications. Only take these prescribed medications to treat your pain when all other options have been tried. Take it for as short a time and asfew doses as possible. Store your pain pills in a secure place, as they are frequently stolen and provide a dangerous opportunity for children or visitors in your house to start abusing these powerful medications. We will not replace any lost or stolen medicine. As soon as your pain is better, you should flush all your remaining medication. Many prescription pain medications contain Tylenol?? (acetaminophen), including Vicodin??, Tylenol #3??, [place]??, Lortab??, and Percocet??. You should not take any extra pills of Tylenol?? if you are using these prescription medications or you can get very sick. Do not ever take more than 3000 mg of acetaminophen in any 24 hour period. All opioids tend to cause constipation. Drink plenty of water and eat foods that have a lot of fiber, such as fruits, vegetables, prune juice, apple juice and high fiber cereal. Take a laxative if you don???t move your bowels at least every other day. Miralax??, Milk of Magnesia, Colace??, or Senna?? can be used to keep you regular. Remember that you can always come back to the Emergency Department if you are not able to see your regular doctor in the amount of time listed above, if you get any new symptoms, or if there is anything that worries you. Discharge Instructions Hypertension - High Blood Pressure During you visit to the Emergency Department, your blood pressure was higher than the recommended blood pressure. This may be related to stress, pain, medication or other temporary conditions. In thesecases, your blood pressure may return to normal on its own. If you have a history of high blood pressure, you may need to have your doctor adjust your medications. Sometimes, your high measurement heremay indicate that you have developed high blood pressure that will stay high unless it is treated. Sudden very high blood pressure can cause problems, but usually high blood pressure causes problems over months to years. Blood pressure is almost never lowered in the Emergency Department, because studies have shown that lowering blood pressure too quickly is much more dangerous than leaving it alone. You need to follow up with your doctor in 1-3 days to get your blood pressure rechecked. Return to the Emergency Department if you start to have: ??? A severe headache. ??? Chest pain. ??? Shortness of breath. ??? Weakness or numbness that affects one part of the body. ??? Confusion. ??? Vision changes. ??? Significant swelling of legs and/or eyes. ??? A reaction to any medication started in the Emergency Department. What can I do to help myself? Avoid alcohol. ??? Take any blood pressure medicine that you are prescribed. ??? Get a good night???s sleep. ??? Lower your salt intake. ??? Exercise. ??? Lose weight. ??? Manage stress. If blood pressure medication was started in the Emergency Department: ??? The medicine may not have an immediate effect. The body and brain determine what blood pressure you have. The medicine???s job is to retrain the body???s ???thermostat?? to a lower blood pressure. ??? You will need to follow up with your doctor to see how this medicine is working for you. If you were given a prescription for medicine here today, be sure to read all of the information (including the package insert) that comes with your prescription. This will include important information about the medicine, its side effects, and any warnings that you need to know about. The pharmacist who fills the prescription can provide more information and answer questions you may have about the medicine. If you have questions or concerns that the pharmacist cannot address, please call or return to the Emergency Department. Opioid Medication Information Pain medications are among the most commonly prescribed medicines, so we are including this information for all our patients. If you did not receive pain medication or get a prescription for pain medicine, you can ignore it. You may have been given a prescription for an opioid (narcotic) pain medicine and/or have received apain medicine while here in the Emergency Department. These medicines can make you drowsy or impaired. You must not drive, operate dangerous equipment, or engage in any other dangerous activities whiletaking these medications. If you drive while taking these medications, you could be arrested for DUI, or driving under the influence. Do not drink any alcohol while you are taking these medications. Opioid pain medications can cause addiction. If you have a history of chemical dependency of any type, you are at a higher risk of becoming addicted to pain medications. Only take these prescribed medications to treat your pain when all other options have been tried. Take it for as short a time and asfew doses as possible. Store your pain pills in a secure place, as they are frequently stolen and provide a dangerous opportunity for children or visitors in your house to start abusing these powerful medications. We will not replace any lost or stolen medicine. As soon as your pain is better, you should flush all your remaining medication. Many prescription pain medications contain Tylenol?? (acetaminophen), including Vicodin??, Tylenol #3??, [place]??, Lortab??, and Percocet??. You should not take any extra pills of Tylenol?? if you are using these prescription medications or you can get very sick. Do not ever take more than 3000 mg of acetaminophen in any 24 hour period. All opioids tend to cause constipation. Drink plenty of water and eat foods that have a lot of fiber, such as fruits, vegetables, prune juice, apple juice and high fiber cereal. Take a laxative if you don???t move your bowels at least every other day. Miralax??, Milk of Magnesia, Colace??, or Senna?? can be used to keep you regular. Remember that you can always come back to the Emergency Department if you are not able to see your regular doctor in the amount of time listed above, if you get any new symptoms, or if there is anything that worries you. Discharge Instructions Palpitations Palpitations are an unusual awareness of your heartbeat. People often describe this as the heart skipping, fluttering, racing, irregular, or pounding. At this time, your doctor has found no signs that your palpitations are due to a serious or life-threatening condition. However, sometimes there is a serious problem that does not show up right away. It is important that you follow up with your doctor within 1 week, or as directed by your doctor today, to check for other serious problems. You may needmore blood tests, a stress test, heart monitoring, or other tests. Palpitations can be caused by caffeine, cigarettes, diet pills, energy drinks or supplements, other stimulants, and medications and street drugs. They can also be caused by anxiety, hormone conditions such as high thyroid, and other medical conditions. Sometimes they are a sign of abnormal rhythm in the heart, so you may need your heart checked. Return to the Emergency Department if: ??? You get chest pain or tightness. ??? You are short of breath. ??? You get very weak or tired. ??? You pass out or faint. ??? Your heart rate is over 120 beats per minute for more than 10 minutes while you are resting. ??? You have any new symptoms, like fever, cough, numb legs, or you cough up blood. ??? You have anything else that worries you. What can I do to help myself? Fill any prescriptions the doctor gave you and take them right away. ??? Follow your doctor???s instructions about the prescription medicines you are on. Sometimes the doctor may tell you to stop taking a medicine or change the dose. ??? If you smoke, this may be a good time to quit! The less you can smoke, the better. ??? Do not use energy drinks, diet pills, or stimulants. Limit your use of caffeine. Follow up with your doctor: ??? Within 1 week, or sooner if instructed. ??? If you keep having palpitations. ??? If you need help to quit smoking. If you were given a prescription for medicine here today, be sure to read all of the information (including the package insert) that comes with your prescription. This will include important information about the medicine, its side effects, and any warnings that you need to know about. The pharmacist who fills the prescription can provide more information and answer questions you may have about the medicine. If you have questions or concerns that the pharmacist cannot address, please call or return to the Emergency Department. Opioid Medication Information Pain medications are among the most commonly prescribed medicines, so we are including this information for all our patients. If you did not receive pain medication or get a prescription for pain medicine, you can ignore it. You may have been given a prescription for an opioid (narcotic) pain medicine and/or have received apain medicine while here in the Emergency Department. These medicines can make you drowsy or impaired. You must not drive, operate dangerous equipment, or engage in any other dangerous activities whiletaking these medications. If you drive while taking these medications, you could be arrested for DUI, or driving under the influence. Do not drink any alcohol while you are taking these medications. Opioid pain medications can cause addiction. If you have a history of chemical dependency of any type, you are at a higher risk of becoming addicted to pain medications. Only take these prescribed medications to treat your pain when all other options have been tried. Take it for as short a time and asfew doses as possible. Store your pain pills in a secure place, as they are frequently stolen and provide a dangerous opportunity for children or visitors in your house to start abusing these powerful medications. We will not replace any lost or stolen medicine. As soon as your pain is better, you should flush all your remaining medication. Many prescription pain medications contain Tylenol?? (acetaminophen), including Vicodin??, Tylenol #3??, [place]??, Lortab??, and Percocet??. You should not take any extra pills of Tylenol?? if you are using these prescription medications or you can get very sick. Do not ever take more than 3000 mg of acetaminophen in any 24 hour period. All opioids tend to cause constipation. Drink plenty of water and eat foods that have a lot of fiber, such as fruits, vegetables, prune juice, apple juice and high fiber cereal. Take a laxative if you don???t move your bowels at least every other day. Miralax??, Milk of Magnesia, Colace??, or Senna?? can be used to keep you regular. Remember that you can always come back to the Emergency Department if you are not able to see your regular doctor in the amount of time listed above, if you get any new symptoms, or if there is anything that worries you. Discharge Instructions Vertigo You have been diagnosed with vertigo. This is a feeling that you are spinning or that the room is moving around you. You will often have nausea, vomiting, and balance problems with it. Vertigo is usually caused by a problem in the inner ear which helps control your balance. Many things can cause vertigo, including calcium collections in the inner ear, a virus infection of the inner ear, concussion, migraine, and some medicines. Luckily, these causes are not life threatening and will eventually go away. However, sometimes there is a serious problem that does not show up right away. Return to the Emergency Department if you have: ??? New or severe headache. ??? Temperature greater than 100.4??F (38??C). ??? Seeing double or having trouble seeing clearly. ??? Trouble speaking or hearing. ??? Weakness in an arm or leg. ??? Passing out. ??? Numbness or tingling. ??? Chest pain. ??? Vomiting that will not stop. Treatment: ??? An antihistamine, such as Antivert?? (meclizine), or non-prescription medicines like Dramamine??(dimenhydrinate), or Benadryl?? (diphenhydramine). ??? Prescription anti-nausea medicines, such as Phenergan?? (promethazine), Reglan?? (metoclopramide), or Zofran?? (ondansetron). ??? Prescription sedative medicines, such as Valium?? (diazepam), Ativan?? (lorazepam), or Klonopin?? (clonazepam). ??? Most of these medicines make you sleepy, and you should not take them before you work or drive. You should only take prescription medicines to treat severe vertigo symptoms, and you should stop themedicine when your symptoms improve. Follow Up: ??? If you have vertigo longer than three days, it is important that you follow up either with your primary doctor or an Ear Nose and Throat doctor. You may need further testing to evaluate your vertigo and you may also need ???vestibular?? therapy which is a special form of physical therapy to make the vertigo go away. If you were given a prescription for medicine here today, be sure to read all of the information (including the package insert) that comes with your prescription. This will include important information about the medicine, its side effects, and any warnings that you need to know about. The pharmacist who fills the prescription can provide more information and answer questions you may have about the medicine. If you have questions or concerns that the pharmacist cannot address, please call or return to the Emergency Department. Opioid Medication Information Pain medications are among the most commonly prescribed medicines, so we are including this information for all our patients. If you did not receive pain medication or get a prescription for pain medicine, you can ignore it. You may have been given a prescription for an opioid (narcotic) pain medicine and/or have received apain medicine while here in the Emergency Department. These medicines can make you drowsy or impaired. You must not drive, operate dangerous equipment, or engage in any other dangerous activities whiletaking these medications. If you drive while taking these medications, you could be arrested for DUI, or driving under the influence. Do not drink any alcohol while you are taking these medications. Opioid pain medications can cause addiction. If you have a history of chemical dependency of any type, you are at a higher risk of becoming addicted to pain medications. Only take these prescribed medications to treat your pain when all other options have been tried. Take it for as short a time and asfew doses as possible. Store your pain pills in a secure place, as they are frequently stolen and provide a dangerous opportunity for children or visitors in your house to start abusing these powerful medications. We will not replace any lost or stolen medicine. As soon as your pain is better, you should flush all your remaining medication. Many prescription pain medications contain Tylenol?? (acetaminophen), including Vicodin??, Tylenol #3??, [place]??, Lortab??, and Percocet??. You should not take any extra pills of Tylenol?? if you are using these prescription medications or you can get very sick. Do not ever take more than 3000 mg of acetaminophen in any 24 hour period. All opioids tend to cause constipation. Drink plenty of water and eat foods that have a lot of fiber, such as fruits, vegetables, prune juice, apple juice and high fiber cereal. Take a laxative if you don???t move your bowels at least every other day. Miralax??, Milk of Magnesia, Colace??, or Senna?? can be used to keep you regular. Remember that you can always come back to the Emergency Department if you are not able to see your regular doctor in the amount of time listed above, if you get any new symptoms, or if there is anything that worries you. Today you were seen for complications from vomiting symptoms of a concussion. Symptoms may include: headache, confusion, feeling sick to your stomach, vomiting (throwing up) and problems with memory, concentration or sleeping. You may feel dizzy, irritable, and tired. Children and teens may need help from their parents, teachers, coaches and others to watch for symptoms as they recover. Follow-up Please visit the clinic below for follow-up care. Schedule this visit within the next 3-4 day(s). Your doctor. If you do not have a doctor, you may choose a clinic at [email or web address], or call [phone], or [phone]. Warning signs Call your doctor or come back to the Emergency Department if you suddenly have any of these symptoms: ??? Headaches that get worse ??? Feeling more and more drowsy ??? You keep repeating yourself ??? Strange behavior ??? Seizures ??? Repeat vomiting (throwing up) ??? Growing confusion ??? Feeling more irritable ??? Neck pain that gets worse ??? Slurred speech ??? Weakness or numbness ??? Loss of consciousness Fluid or blood coming from ears or noseSelf-care ??? Get lots of rest. Be sure to get enough sleep at night. Take daytime naps or rest if you feel tired. ??? Limit physical activity and ???thinking?? activities. These can make symptoms worse. - Physical activity includes gym, sports, weight training, running, exercise and heavy lifting. - Thinking activities include homework, class work and job-related work. ??? Maintain a healthy diet and drink lots of fluids. ??? As symptoms improve, you may slowly return to your daily activities. If symptoms get worse or return, reduce your activities. ??? Know that it is normal to feel sad and frustrated when you do not feel right and are less active. Kaiden Kumar Axel 06/20/2014 Going back to work ??? Your care team will tell you when to return to work based on your symptoms. ??? Limit the amount of work you do soon after your injury. This may speed healing. It is important to get a lot of rest. You should also reduce your physical activity as well as activities that require a lot of thinking or concentration. ??? At this time: Return to work in 3-5 days. ??? You may go back to work with reduced workload and responsibilities. ??? You may go back to work with the ability to take breaks when symptoms get worse. ??? You may go back to work with no heavy lifting or working with machinery. ??? You may go back to work with no working at heights. ??? 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 ESOPHAGITIS (SPANISH)documented in this encounter Medications at Time of Discharge Medication Sig Dispensed Refills Start Date End Date KERA NOT PRESCRIBED, 1 each daily KERA 0 each 0 05/30/2014 INTENTIONAL,Indications Inhibitor not : Diabetes mellitus, prescribed due to type 2 (H) Other: ASPIRIN NOT PRESCRIBED, 1 each continuous prn 0 each 0 0 05/30/2014 INTENTIONAL,Indications for other : Diabetes mellitus, Antiplatelet type 2 (H) medication not prescribed intentionally due to doxycycline Take 1 tablet (100 14 tablet 0 06/13/2014 (VIBRA-TABS) 100 MG mg) by mouth 2 times tabletIndications: daily Periorbital cellulitis of left eye erythromycin (ROMYCIN) Place 1 Application 1 g 0 05/17 ophthalmic Into the left eye 4 ointmentIndications: times daily Periorbital cellulitis of left eye STATIN NOT PRESCRIBED, 1 each daily Statin 0 each 0 05/15 INTENTIONAL,Indications not prescribed : Diabetes mellitus, intentionally due to type 2 (H) Other: omeprazole (PRILOSEC) Take 1 capsule (20 14 capsule 0 201407/04/2014 20 MG capsule mg) by mouth daily for 14 days ondansetron (ZOFRAN Take 1 tablet (4 mg) 10 tablet 0 201406/23/2014 ODT) 4 MG by mouth every 8 disintegrating tablet hours as needed for nausea documented as of this encounter ED Notes Karel Mendiola - 06/20/2014 4:23 PM CST History Chief Complaint: Chest Pain and Shortness of Breath HPI Kaiden Reyna is a 39 year old male with a history of Diabetes, MRSA, GERD, and thyroid problems who presents to the emergency room for evaluation of a fast heart rate today. According to the patientthey were at work today when the symptoms started, he notes that he vomited this morning and sustained a concussion on Monday. He was seen at [facility] on Monday and diagnosed with a concussion, he did have a NEGATIVE CT completed at that time. At this time nothing makes the symptoms better or worse. The pain is a dull, heavy pressure and located in the center of his chest. This pain doesn't radiate at this time, they rate the pain as 2/10 with 10 being the most severe pain imaginable. The pain has lasted all afternoon long, it has not improved or worsened since then. Associated symptoms that the patient complains of are nausea. Patient states No history of cancer, DVT/PE, hemoptysis, smoking, lower extremity symptoms, recent immobilizations. Allergies: Allergies Allergen Reactions ??? Bactrim [Sulfamethoxazole W/Trimethoprim] Anaphylaxis Angioedema ??? Clindamycin Anaphylaxis Angioedema ??? Penicillins Anaphylaxis ??? Vancomycin Anaphylaxis ??? Diphenhydramine Hives Medications: erythromycin (ROMYCIN) ophthalmic ointment doxycycline (VIBRA-TABS) 100 MG tablet ASPIRIN NOT PRESCRIBED, INTENTIONAL, STATIN NOT PRESCRIBED, INTENTIONAL, KERA NOT PRESCRIBED, INTENTIONAL, Past Medical History: Past Medical History Diagnosis Date ??? Thyroiditis ??? Cellulitis ??? Diabetes mellitus ??? Gastric ulcer ??? MRSA cellulitis Past Surgical History: Past Surgical History Procedure Laterality Date ??? Gi surgery ??? Esophagoscopy, gastroscopy, duodenoscopy (egd), combined 07/30/2013 Procedure: COMBINED ESOPHAGOSCOPY, GASTROSCOPY, DUODENOSCOPY (EGD), BIOPSY SINGLE OR MULTIPLE; ESOPHAGOSCOPY, GASTROSCOPY, DUODENOSCOPY (EGD) and gastric bx R/O H. Pylori/WW; Surgeon: Prashanth Aj MD; Location: [facility] ??? Colonoscopy 01/17/2014 Dr. Aj [facility] ??? Colonoscopy N/A 01/17/2014 Procedure: COLONOSCOPY; Surgeon: Prashanth Aj MD; Location: [facility] Family / Social History: Family History Problem Relation Age of Onset ??? Lupus Mother ??? Diabetes Paternal Grandmother ??? Liver Disease Paternal Grandmother ??? Liver Disease Mother ??? Autoimmune Disease Maternal Grandmother Autoimmune hepatitis ??? Autoimmune Disease Mother autoimmune hep ??? C.A.D. Mother ??? Cancer Sister 28 Uterine Cancer ??? Cancer Maternal Grandfather Lung Cancer ??? Diabetes Paternal Grandfather ??? C.A.D. Paternal Grandfather ??? Diabetes Paternal Grandmother Marital Status: [2] Social History:Here with friend. Non-smoker Review of Systems Constitutional: Negative for fever and chills. Respiratory: Positive for shortness of breath. Negative for cough, chest tightness and wheezing. Cardiovascular: Positive for chest pain. Negative for palpitations and leg swelling. Gastrointestinal: Positive for nausea and vomiting. Skin: Negative for pallor, rash and wound. Neurological: Negative for dizziness, weakness and numbness. All other systems reviewed and are negative. Physical Exam First Vitals: BP: 152/105 mmHg Pulse: 117 Temp: 98.7 ??F (37.1 ??C) Resp: 20 Height: 175.3 cm (5' 9) Weight: 112.946 kg (249 lb) SpO2: 100 % Physical Exam Nursing note and vitals reviewed. Constitutional: Patient is oriented to person, place, and time and well- developed, well-nourished. HENT: Mouth/Throat: Oropharynx is clear and moist. No abscess noted. Eyes: Conjunctivae are normal. No scleral icterus. Cardiovascular: tachycardia rate, regular rhythm and intact distal pulses. Pulmonary/Chest: Effort normal. Abd: soft non-tender, non-distended exam, no pain upon palpation noted. Musculoskeletal: Normal range of motion. Distal CMS intact. Neurological: Patient is alert and oriented to person, place, and time. Patient has normal sensation and normal strength. Skin: Skin is warm and dry. No rash noted. Patient is not diaphoretic. Emergency Department Course ECG: Indication: Sinus Tachycardia Completed at 1605. Read at 1606. Rate 114 bpm. WI interval 146. QRS duration 84. QT/QTc 320/441. P-R-T axes 59/45/40. Agree with computer interpretation. Imaging: Radiographic findings were communicated with the patient who voiced understanding of the findings. Chest XR: IMPRESSION: No acute disease Laboratory: D Dimer:<0.3 normal CBC:Normal Troponin I:<0.015 BMP:Glucose-105 TSH:2.47 Emergency Department Course: ED Interventions: Medications sodium chloride (PF) 0.9% PF flush 3 mL (not administered) sodium chloride (PF) 0.9% PF flush 3 mL (not administered) 0.9% sodium chloride BOLUS (not administered) Followed by 0.9% sodium chloride infusion (not administered) ondansetron (ZOFRAN) injection 4 mg (not administered) ED Course: I reviewed the patient's medical record. The patient was seen and examined by myself. I discussed the course of care with the patient including laboratory and diagnostic studies. Patient understands and is agreeable to the plan. Recheck completed at 1700, patient resting in bed on the cardia monitor, Dr. Cody will take over care at this time.I discussed with the patient the results of the above studies and procedures. All questions were answered prior to discharge, and the patient was told to follow up per discharge instructions. Reasons for return as well as follow up were reviewed with the patient. Patient understands and agrees to this plan. I personally reviewed the laboratory results with the Patient and answered all related questions prior to discharge. Impression & Plan Medical Decision Making: Patient report given to Dr. Dimitry Cody who will take over care of the patient at this time, 1700. Transfer of care complete. Diagnosis: (796.2) Elevated blood pressure (786.05) SOB (shortness of breath) (786.50) Chest pain (785.0) Tachycardia Karel Mendiola 06/20/2014 [facility] EM[facility]ENCY [facility] Karel Mendiola NP 06/21/14 0602 CONTRACTOR Associated attestation - Frannie Franco MD - 06/23/2014 8:11 AM ROCK CONTRACTOR Emergency Department Attending Supervision Note 06/23/2014 8:06 AM I evaluated this patient in conjunction with Margarito Mendiola NP Briefly, the patient presented with vomiting, palpitations and chest pain. Patient had recent head injury and concussion with normal CT head. Patient developed palpitations, dizziness and non-radiatingchest pressure. On my exam, sinus tachycardia, normal neurologic exam. My impression is Concussion with vomiting, Palpitations and Chest pain. All laboratory tests were pending and patient signed out the Dr. Cody for further evaluation and management. Diagnosis ICD-9-CM 1. Elevated blood pressure 796.2 Basic metabolic panel Troponin I D dimer quantitative TSH with free T4 reflex 2. SOB (shortness of breath) 786.05 3. Chest pain. Likely vomiting induced esophagitis 786.50 4. Tachycardia 785.0 5. Vertigo 780.4 6. Concussion syndrome 310.2 Josee Brown RN - 06/20/2014 4:00 PM CST Chest pain and shortness of breath- patient states woke up feeling heart racing. ABC intact alert and no distress. CONTRACTOR documented in this encounter Plan of Treatment Not on filedocumented as of this encounter Procedures Procedure Name Priority Date/Time Associated Comments Diagnosis XR CHEST 2 VIEWS STAT 06/20/2014 5:12 PM Resul ts for this ROCK CONTRACTOR procedure are i n the results section. CBC WITH PLATELETS & STAT 06/20/2014 4:42 PM R esults for this DIFFERENTIAL ROCK CONTRACTOR procedure are i n the results section. TSH WITH FREE T4 STAT 06/20/2014 4:42 PM Elevated blood Res ults for this REFLEX ROCK CONTRACTOR pressure procedure are i n the results section. TROPONIN I STAT 06/20/2014 4:42 PM Elevated blood Results for this ROCK CONTRACTOR pressure procedure are i n the results section. D DIMER QUANTITATIVE STAT 06/20/2014 4:42 PM Elevated blood Results for this ROCK CONTRACTOR pressure procedure are i n the results section. BASIC METABOLIC PANEL STAT 06/20/2014 4:42 PM Elevated bloo d Results for this ROCK CONTRACTOR pressure procedure are i n the results section. EKG 12-LEAD, TRACING STAT 06/20/2014 4:05 PM R esults for this ONLY ROCK CONTRACTOR procedure are i n the results section. documented in this encounter Results XR Chest 2 Views (06/20/2014 5:12 PM ROCK CONTRACTOR) Anatomical Region Laterality Modality Chest Computed Radiography Specimen (Source) Anatomical Location Collection Method / Collectio n Time Received Time / Laterality Volume Impressions 06/20/2014 5:20 PM ROCK CONTRACTOR IMPRESSION: No acute disease. GRADY DUONG MD Narrative 06/20/2014 5:20 PM ROCK CONTRACTOR CHEST TWO VIEWS 06/20/2014 5:12 PM HISTORY: Shortness of breath COMPARISON: 08/06/2013 FINDINGS: ? There are no acute infil trates. The cardiac silhouette is not enlarged. Pulmonary vasculature i s unremarkable. ? Procedure Note Grady Duong MD - 06/20/2014Fo rmatting of this note might be different from the original. CHEST TWO VIEWS 06/20/2014 5:12 PM HISTORY: Shortness of breath COMPARISON: 08/06/2013 FINDINGS: There are no acute infiltrates . The cardiac silhouette is not enlarged. Pulmonary vasculature i s unremarkable. IMPRESSION IMPRESSION: No acute disease. GRADY DUONG MD Karel Mendiola APRN, CNP IMG DIAGNOSTIC IMAGING ORDER TOSIN TSH with free T4 reflex (06/20/2014 4:42 PM ROCK CONTRACTOR) athologist Signature TSH 2.47 0.40 - 4.00 [facility] mU/L [facility] Comment: Effective 12/11/2013, the reference range for this assay has changed to reflect new instrumentation/methodology. Specimen Anatomical Collection Method Collection Time Receive d Time (Source) Location / / Volume Laterality Blood specimen 06/20/2014 4:42 PM 015 4:53 (specimen) ROCK CONTRACTOR PM ROCK CONTRACTOR Karel Mendiola APRN AUDIO VISUAL SPECIALIST LAB - BLOOD ORDERABLES Performing Organization Address City/State/ZIP Code Phon e Number M [facility] [address], [place] [address] [facility] [address] [place], [place] [address] 7 D dimer quantitative (06/20/2014 4:42 PM ROCK CONTRACTOR) athologist [facility] D Dimer <0.3 0.0 - 0.50 [facility] ug/ml [facility] Specimen Anatomical Collection Method Collection Time Receive d Time (Source) Location / / Volume Laterality Blood specimen 06/20/2014 4:42 PM 015 4:53 (specimen) ROCK CONTRACTOR PM ROCK CONTRACTOR Karel Mendiola APRN, CNP LAB - BLOOD ORDERABLES Performing Organization Address [facility] Phon e Number [facility] [address], [place] [address] 7 [phone] [place] [address] [address], [place] [address] 7 Troponin I (06/20/2014 4:42 PM ROCK CONTRACTOR) [facility] gist Method Time [facility] Troponin I ES <0.015 0.000 - [place] The 99th percentile for uppe r reference range is 0.045 ug/L. ??Troponin values in 0.045 [facility] the range of 0.045 - 0.120 ug/L may be associated wit h risks of adverse ug/L HOSPITAL clinical events. Effective 12/11/2013, the re ference range for this assay has changed to reflect new instrumentation/methodology. Specimen Anatomical Collection Method Collection Time Receive d Time (Source) Location / / Volume Laterality Blood specimen 06/20/2014 4:42 PM 015 4:53 (specimen) ROCK CONTRACTOR PM ROCK CONTRACTOR Karel Mendiola APRN, CNP LAB - BLOOD ORDERABLES Performing Organization Address [facility]/ZIP [facility] Phon e Number M [facility] [address], [place] [address] [facility] [address], [place] [address] 7 (ABNORMAL) Basic metabolic panel (06/20/2014 4:42 PM ROCK CONTRACTOR) athologist [facility] Sodium 138 133 - 144 [place] mmol/L [facility] Potassium 3.8 3.4 - 5.3 [place] mmol/L [facility] Chloride 102 94 - 109 [place] mmol/L [facility] Carbon Dioxide 28 20 - 32 [place] mmol/L [facility] Anion Gap 8 3 - 14 [place] mmol/L [facility] Glucose 105 (H) 70 - 99 [place] mg/dL [facility] Comment: Effective 12/11/2013, the reference range for this assay has changed to reflect new instrumentation/methodology. Urea Nitrogen 16 7 - 30 mg/dL [facility] Comment: Effective 12/11/2013, the reference range for this assay has changed to reflect new instrumentation/methodology. Creatinine 1.01 0.66 - 1.25 mg/dL [facility] GFR Estimate 83 >60 mL/min/1.7m2 [facility] Comment: Non GFR Calc GFR Estimate If Black >90 >60 mL/min/1.7m2 F [facility] GFR Calc HOSP ITAL Calcium 9.5 8.5 - 10.1 mg/dL [facility] Comment: Effective 12/11/2013, the reference range for this assay has changed to reflect new instrumentation/methodology. Specimen Anatomical Collection Method Collection Time Receive d Time (Source) Location / / Volume Laterality Blood specimen 06/20/2014 4:42 PM 015 4:53 (specimen) ROCK CONTRACTOR PM ROCK CONTRACTOR Karel Mendiola APRN AUDIO VISUAL SPECIALIST LAB - BLOOD ORDERABLES Performing Organization Address City/State/ZIP Code Phon e Number M [place] [address] [place] [address] [facility] [address] [place] [address] 7 CBC with platelets differential (06/20/2014 4:42 PM ROCK CONTRACTOR) [facility] gist Method Time Signature WBC 7.7 4.0 - [place] 11.0 [facility] 10e9/L [facility] RBC Count 4.91 4.4 - 5.9 [place] 10e12/L [facility] Hemoglobin 14.8 13.3 - [place] 17.7 g/dL [facility] Hematocrit 42.3 40.0 - [place] 53.0 % [facility] MCV 86 78 - 100 [facility] MCH 30.1 26.5 - [place] 33.0 pg [facility] MCHC 35.0 31.5 - [place] 36.5 g/dL [facility] RDW 12.7 10.0 - [place] 15.0 % [facility] Platelet Count 185 150 - 450 [place] 10e9/L [facility] Diff Method Automated [place] Method [facility] % Neutrophils 69.4 % [facility] % Lymphocytes 27.9 % [facility] % Monocytes 1.7 % [facility] % Eosinophils 0.9 % [facility] % Basophils 0.0 % [facility] % Immature 0.1 % [place] Granulocytes [facility] Absolute 5.3 1.6 - 8.3 [place] Neutrophil 10e9/L [facility] Absolute 2.2 0.8 - 5.3 [place] Lymphocytes [address] [place] [address] Absolute 0.1 0.0 - 1.3 [place] Monocytes [address] [place] [address] Absolute 0.1 0.0 - 0.7 [place] Eosinophils [address] [place] [address] Absolute 0.0 0.0 - 0.2 [place] Basophils [address] [place] [address] Abs Immature 0.0 0 - 0.4 [place] Granulocytes [address] [place] [address] Specimen Anatomical Collection Method Collection Time Receive d Time (Source) Location / / Volume Laterality Blood specimen 06/20/2014 4:42 PM 015 4:53 (specimen) ROCK CONTRACTOR PM ROCK CONTRACTOR Karel Mendiola APRN AUDIO VISUAL SPECIALIST LAB - BLOOD ORDERABLES Performing Organization Address City/[facility]/ZIP [facility] Phon e Number [facility] [phone] [facility] [address] [place], [place] [address] 7 EKG 12 lead (06/20/2014 4:05 PM ROCK CONTRACTOR) [facility] gist Method Time Signature Interpretation ECG Click View RADIOLOGY Image link RESULTS to view waveform and result Specimen (Source) Anatomical Collection Method Collection Time Re ceived Time Location / / Volume Laterality 06/20/2014 4:05 PM ROCK CONTRACTOR Anayeli Whitlock MD ECG ORDERABLES Performing Organization Address City/[facility]/ZIP [facility] Phon e Number RADIOLOGY RESULTS documented in this encounter Visit Diagnoses Diagnosis Elevated blood pressure Elevated blood pressure reading without diagnosis of hypertension SOB (shortness of breath) Shortness of breath Chest pain. Likely vomiting induced esop hagitis Chest pain, unspecified Tachycardia Tachycardia, unspecified Vertigo Dizziness and giddiness Concussion syndrome Postconcussion syndrome documented in this encounter Administered Medications Inactive Administered Medications - up to 3 most recent administrations Medication Order MAR Action Action Date Dose Rate Site 0.9% sodium chloride BOLUS New Bag 06/20/2014 4:45 PM ROCK CONTRACTOR 1,000 mLs 1000 mL/hr Intravenous, 1,000 mL, ONCE, at 1,000 mL/hr, Administer over 1 Hours, On Mon06/20/14 at 1623, For 1 dose lidocaine (XYLOCAINE) 2 % 15 mL, alum & mag Given 06/20/2014 5:44 PM ROCK CONTRACTOR 30 mLs hydroxide-simethicone (MYLANTA ES/MAALOX ES) 15 mL GI Cocktail 30 mL, Oral, ONCE, On Mon06/20/14 at 1738, For 1 dose ondansetron (ZOFRAN) injection 4 mg Given 06/20/2014 4:48 PM ROCK CONTRACTOR 4 mg 4 mg, Intravenous, ONCE, Administer over 2-5 Minutes, On Mon06/20/14 at 1623, For 1 dose documented in this encounter Active and Recently Administered Medications Times are shown in ROCK CONTRACTOR. Scheduled Medication Order 06/18/2014 06/19/2014 06/20/2014 0.9% sodium chloride BOLUS (COMPLETED) 164 (New Bag - Provider: Britni Leo RN)1921 (Stopped - Provider: Sherrill Manning, CASA) Intravenous, 1,000 mL, ONCE, at 1,000 mL /hr, Administer over 1 Hours, On Mon06/20/14 at 1623, For 1 dose lidocaine (XYLOCAINE) 2 % 15 mL, alum & mag hydroxide-simethicone (MYLANTA ES/MAALOX ES) 15 mL GI Cocktail (COMPLETED) 174 (Given - Provider: Sherrill Manning, CASA) 30 mL, Oral, ONCE, Mon06/20/14 at 1738, For 1 dose ondansetron (ZOFRAN) injection 4 mg (COMPLETED) 164 (Given - Provider: Britni Leo RN) 4 mg, Intravenous, ONCE, for 2 Minutes, Mon06/20/14 at 1623, For 1 dose documented in this encounter Additional Health Concerns Infection Onset Date Last Indicated Resolved Time MRSA-Contact IsolationComment: Skin 12-25-2012 01/02/2013 documented as of this encounter Care Teams Operations Intelligence Superintendent Relationship Specialty Start Date End Date Christine Marr MD PCP - General Pediatrics 01/14/14 documented as of this encounter
--- OUTSIDE RECORDS SUMMARY | 2022-04-14 09:12 | XMS_ITS | Encounter Summary ---
:1975 Author Organization [facility] Address [address] [place] [address]. [place] [address] Care Team Providers Name Role Phone Christine Marr MD Primary Care Provider [phone] Reason for Referral Diagnostic Imaging CT Scan (Routine: Next available opening) - Closed Specialty Diagnoses / Procedures Referred By Contact Refer red To Contact Diagnoses Chronic diarrhea Yoan Santos MD Procedures CT Enterography with Contrast [facility] [address] [place] [address] [place] [id number] Referral ID Status Reason Start Date Expiration Date Visits Requ ested Visits Authorized [id number] Closed 09/21/2021 09/21/2022 1 1 Reason for Visit Diagnostic Imaging CT Scan (Routine: Next available opening) - Closed Specialty Diagnoses / Procedures Referred By Contact Refer red To Contact Diagnoses Chronic diarrhea Yoan Santos MD Procedures CT Enterography with Contrast [facility] [address] [place] [address] [place] [id number] Referral ID Status Reason Start Date Expiration Date Visits Requ ested Visits Authorized [id number] Closed 09/21/2021 09/21/2022 1 1 Encounter Details Date Type Department Care Team Description 10/14/2021 [facility] Yoan Santos ronic diarrhea Encounter [facility] MD [place] [id number] [facility] [address] [facility] [address] [place], [place] [address] [phone] Social History Tobacco Use Types Packs/Day Years Used Date Smoking Tobacco: Never Smokeless Tobacco: Never Alcohol Use Standard Drinks/Week Comments No 0 (1 standard drink = 0.6 oz pure alcoho l) Sex Assigned at Date Recorded Not on file COVID-19 Exposure Response Date Recorded In the last 10 days, have you been in contact with No / Unsu re 10/14/2021 10:27 AM CDT someone who was confirmed or suspected to have Coronavirus/COVID-19? documented as of this encounter Medications at Time of Discharge Medication Sig Dispensed Refills Start Date End Date KERA NOT PRESCRIBED, 1 each daily KERA 0 each 0 05/30/2014 INTENTIONAL,Indications Inhibitor not prescribed : Diabetes mellitus, due to Other: type 2 (H) ASPIRIN NOT PRESCRIBED, 1 each continuous prn 0 each 0 0 05/30/2014 INTENTIONAL,Indications for other Antiplatelet : Diabetes mellitus, medication not type 2 (H) prescribed intentionally due to doxycycline Take 1 tablet (100 mg) 14 tablet 0 06/13/2014 (VIBRA-TABS) 100 MG by mouth 2 times daily tabletIndications: Periorbital cellulitis of left eye erythromycin (ROMYCIN) Place 1 Application Into 1 g 0 06/13/2014 ophthalmic the left eye 4 times ointmentIndications: daily Periorbital cellulitis of left eye HYDROcodone-acetaminoph Take 1 tablet by mouth 20 tablet 0 06/23/2014 en (NORCO) 5-325 MG per every 6 hours as needed tabletIndications: Low for moderate to severe back pain pain STATIN NOT PRESCRIBED, 1 each daily Statin not 0 each 0 05/30/2014 INTENTIONAL,Indications prescribed intentionally : Diabetes mellitus, due to Other: type 2 (H) documented as of this encounter Plan of Treatment Not on filedocumented as of this encounter Procedures Procedure Name Priority Date/Time Associated Comments Diagnosis CT ENTEROGRAPHY WITH Routine: Next 10/14/2021 11:40 Chronic diarrhe a Results for this CONTRAST available AM CDT procedure are i n opening the results section. documented in this encounter Results CT Enterography with Contrast (10/14/2021 11:40 AM CDT) Anatomical Region Laterality Modality Abdomen/Pelvis, SUBRAD CT BODY, UMP CT ABDOMEN PELVIS, Computed Tomography RAD CT Specimen (Source) Anatomical Location Collection Method / Collectio n Time Received Time / Laterality Volume Impressions 10/14/2021 12:38 PM CDT IMPRESSION: Mild thickening of the distal descending colon and proximal sigmoid colon with loss of haus tral pattern may represent infectious or inflammatory colitis. ELIZABETH LYLES MD Narrative 10/14/2021 12:[address] ABDOMEN AND PELVIS WITH CONTRAST 10/14/2021 11:40 AM HISTORY: Chronic diarrhea. COMPARISON: 01/10/2014 TECHNIQUE: Volumetric helical acquisitio n of CT images from the lung bases through the symphysis pubis after the administration of 100 mL Isovue-370 intravenous and negative oral contrast. Radiation dose for this scan was reduced using automated ex posure control, adjustment of the mA and/or kV according to patient si ze, or iterative reconstruction technique. FINDINGS: Small bowel is unremarkable wi thout evidence of stricture, hyperemia, or wall thickening. There is a segment of the distal descending colon and proximal sigmoid co gavi that appears minimally thickened with loss of haustral pattern (series 8, image 47). The remainder of the colon is unremarkable. The appendix is normal. No intra-abdominal abscess or fistula demon strated. A calcified granuloma is noted in the lo wer right lung. There is fatty infiltration of the liver without focal lesion. The gallbladder, spleen, pancreas, adrenal glands, and ki dneys are unremarkable. No adenopathy or ascites. Normal caliber ab dominal aorta. No destructive bone lesions. Procedure Note Elizabeth Lyles MD - 10/14/2021Forma tting of this note might be different from the original. CT ABDOMEN AND PELVIS WITH CONTRAST 2021 11:40 AM HISTORY: Chronic diarrhea. COMPARISON: 01/10/2014 TECHNIQUE: Volumetric helical acquisitio n of CT images from the lung bases through the symphysis pubis after the administration of 100 mL Isovue-370 intravenous and negative oral contrast. Radiation dose for this scan was reduced using automated ex posure control, adjustment of the mA and/or kV according to patient si ze, or iterative reconstruction technique. FINDINGS: Small bowel is unremarkable wi thout evidence of stricture, hyperemia, or wall thickening. There is a segment of the distal descending colon and proximal sigmoid co gavi that appears minimally thickened with loss of haustral pattern (series 8, image 47). The remainder of the colon is unremarkable. The appendix is normal. No intra-abdominal abscess or fistula demon strated. A calcified granuloma is noted in the lo wer right lung. There is fatty infiltration of the liver without focal lesion. The gallbladder, spleen, pancreas, adrenal glands, and ki dneys are unremarkable. No adenopathy or ascites. Normal caliber ab dominal aorta. No destructive bone lesions. IMPRESSION: Mild thickening of the dista l descending colon and proximal sigmoid colon with loss of haus tral pattern may represent infectious or inflammatory colitis. ELIZABETH LYLES MD Yoan Santos MD IMG CT ORDERABLES documented in this encounter Visit Diagnoses Diagnosis Chronic diarrhea Diarrhea documented in this encounter Administered Medications Inactive Administered Medications - up to 3 most recent administrations Medication Order MAR Action Action Date Dose Rate Site CT Scan Flush Given 10/14/2021 11:32 AM CDT 63 mLs Intravenous, 100 mL, ONCE, On [place] 10/14/21 at 1130, For 1 dose, This entry is for use by Radiology to intermittently used as a flush in patients receiving a CT scan. iopamidol (ISOVUE-370) solution 500 mL Given 10/14/2021 11:32 AM CDT 100 mLs 500 mL, Intravenous, ONCE, On [place] 10/14/21 at 1130, For 1 dose documented in this encounter Additional Health Concerns Infection Onset Date Last Indicated Resolved Time MRSA-Contact IsolationComment: Skin 12-25-2012 01/02/2013 documented as of this encounter Care Teams Brazing Furnace Feeder Relationship Specialty Start Date End Date Christine Marr MD PCP - General Pediatrics 01/14/14 documented as of this encounter
--- OUTSIDE RECORDS SUMMARY | 2022-04-14 09:12 | XMS_ITS | Encounter Summary ---
:1975 Author Organization [facility] Address [address] [place] [address]. [place] [address] Care Team Providers Name Role Phone Christine Ca MD Primary Care Provider [phone] Reason for Visit Reason Onset Date Comments Panel Management 01/30/2014 Encounter Details Date Type Department Care Team Description 01/30/2014 Telephone [facility] Eag Neymar Sam Panel Management [address] [place] [id number] Social History Tobacco Use Types Packs/Day Years Used Date Smoking Tobacco: Never Smokeless Tobacco: Never Alcohol Use Standard Drinks/Week Comments No 0 (1 standard drink = 0.6 oz pure alcoho l) Sex Assigned at Date Recorded Not on file documented as of this encounter Miscellaneous Notes Telephone Encounter - Trevon Ladan A, [facility] - 01/30/2014 10:43 AM CDT Panel Management Review Date of last visit with a [facility] provider: gilbert ca on 01/26/2014. Date of next visit with a [facility] provider: gilbert Ca on 02/11/2014. Problem List Patient Active Problem List Diagnosis ??? CARDIOVASCULAR SCREENING; LDL GOAL LESS THAN 100 ??? Hyperthyroidism ? ? Diabetes mellitus, type 2; BP Goal <140/90 ??? MRSA cellulitis ??? GERD (gastroesophageal reflux disease) Health Maintenance List Health Maintenance Topic Date Due ??? FOOT EXAM Q1 YEAR( NO INBASKET) 1978 ??? EYE EXAM Q1 YEAR( NO INBASKET) 1978 ??? MICROALBUMIN Q1 YEAR( NO INBASKET) 11/07/2013 ??? INFLUENZA VACCINE (SYSTEM ASSIGNED) 02/12/2014 ??? LIPID MONITORING Q1 YEAR( NO INBASKET) 07/26/2014 ??? A1C Q6 MO( NO INBASKET) 07/29/2014 ??? CREATININE Q1 YEAR (NO INBASKET) 01/10/2015 ??? TSH W/ FREE T4 REFLEX Q2 YEAR (NO INBASKET) 01/30/2016 ??? TETANUS IMMUNIZATION (SYSTEM ASSIGNED) 05/15/2018 For diabetic patients with hyperlipidemia, only choose diabetes. Patient has the following on his problem list: Composite cancer screening Chart review shows that this patient is due/due soon for the following Microalbumin Delete if Male Tobacco History History Smoking status ??? Never Smoker Smokeless tobacco ??? Never Used Summary: Patient is due/failing the following: microalbumin Action needed: lab visit only Type of outreach: Pt has an upcoming appointment. Micro can collected at the time of viisit Questions for provider review: None Please indicate office visit, lab, MTM, or nurse appt if needed. Indicate fasting or not fasting. routed Chart routed to Care Team . documented in this encounter Plan of Treatment Not on filedocumented as of this encounter Visit Diagnoses Not on filedocumented in this encounter Additional Health Concerns Infection Onset Date Last Indicated Resolved Time MRSA-Contact IsolationComment: Skin 12-25-2012 01/02/2013 documented as of this encounter Care Teams Director Telehealth Relationship Specialty Start Date End Date Christine Ca MD PCP - General Pediatrics 01/14/14 documented as of this encounter
--- OUTSIDE RECORDS SUMMARY | 2022-04-14 09:12 | XMS_ITS | Encounter Summary ---
:1975 Author Organization [facility] Address [address] [place] [address]. [place] [address] Care Team Providers Name Role Phone Christine Marr MD Primary Care Provider [phone] Reason for Visit Reason Onset Date Comments Panel Management 03/19/2015 Encounter Details Date Type Department Care Team Description 03/19/2015 Telephone [facility] Eric Ma MD Panel Management [address] [place] [address] [facility] [phone] [place] [address] (Wo rk) Social History Tobacco Use Types Packs/Day Years Used Date Smoking Tobacco: Never Smokeless Tobacco: Never Alcohol Use Standard Drinks/Week Comments No 0 (1 standard drink = 0.6 oz pure alcoho l) Sex Assigned at Date Recorded Not on file documented as of this encounter Miscellaneous Notes Telephone Encounter - Mayte Dasilva - 04/14/2015 2:45 PM CST Left message to schedule appointment. E CHOREOGRAPHER Telephone Encounter - Lorri Dale, [facility] - 04/13/2015 8:54 AM CST Type of outreach: Mayte please schedule apt with Dr. Marr per Hui. Leave open please thanks! Health Maintenance Due Topic Date Due ??? EYE EXAM Q1 YEAR( NO INBASKET) 1978 ? ? PNEUMOVAX 1X HI RISK PATIENT < 65 (NO IB MSG) 1979 ??? MICROALBUMIN Q1 YEAR( NO INBASKET) 11/07/2013 ??? LIPID MONITORING Q1 YEAR( NO INBASKET) 07/26/2014 ??? A1C Q6 MO( NO INBASKET) 07/29/2014 ??? INFLUENZA VACCINE (SYSTEM ASSIGNED) 01/13/2015 Lorri Dale MA E CHOREOGRAPHER Telephone Encounter - Eric Ames MD - 03/19/2015 1:16 PM CST Please call. Failing on multeiple diabetes mellitus measures. Needs to get into see PCP (Tejinder) this month, please. Please try again to get patient in. Eric Ames MD Internal Medicine and Pediatrics E CHOREOGRAPHER documented in this encounter Plan of Treatment Not on filedocumented as of this encounter Visit Diagnoses Not on filedocumented in this encounter Additional Health Concerns Infection Onset Date Last Indicated Resolved Time MRSA-Contact IsolationComment: Skin 12-25-2012 01/02/2013 documented as of this encounter Care Teams Satellite Television Installer Relationship Specialty Start Date End Date Christine Marr MD PCP - General Pediatrics 01/14/14 documented as of this encounter
--- OUTSIDE RECORDS SUMMARY | 2022-04-14 09:12 | XMS_ITS | Encounter Summary ---
:1975 Author Organization [facility] Address [address] [place] [address]. [place] [address] Care Team Providers Name Role Phone Christine Marr MD Primary Care Provider [phone] Reason for Visit Reason Comments Eye Problem Back Pain Encounter Details Date Type Department Care Team Description 06/13/2014 Office Visit [facility] Jaylyn Jones Perio rbital cellulitis Clifton Chavez PA-C of left eye (Primary [address] [facility] Dx) [place] [phone] [facility] [address] [phone] [place] [id number] Social History Tobacco Use Types Packs/Day Years Used Date Smoking Tobacco: Never Smokeless Tobacco: Never Alcohol Use Standard Drinks/Week Comments No 0 (1 standard drink = 0.6 oz pure alcoho l) Sex Assigned at Date Recorded Not on file documented as of this encounter Last Filed Vital Signs Vital Sign Reading Time Taken Comments Blood Pressure 122/84 06/13/2014 10:38 AM PROPERTY MAINTENANCE TECHNICIAN Pulse 75 06/13/2014 10:38 AM PROPERTY MAINTENANCE TECHNICIAN Temperature 36.8 ??C (98.2 ??F) 06/13/2014 10:38 AM PROPERTY MAINTENANCE TECHNICIAN Respiratory Rate - - Oxygen Saturation 98% 06/13/2014 10:38 AM PROPERTY MAINTENANCE TECHNICIAN Inhaled Oxygen Concentration - - Weight 113.3 kg (249 lb 12.8 oz) 06/13/2014 10:38 AM PROPERTY MAINTENANCE TECHNICIAN Height 160 cm (5' 3) 06/13/2014 10:38 AM PROPERTY MAINTENANCE TECHNICIAN Body Mass Index 44.25 06/13/2014 10:38 AM PROPERTY MAINTENANCE TECHNICIAN documented in this encounter Patient Instructions Patient InstructionsJaylyn Jones PA-C - 06/13/2014 10:59 AM PROPERTY MAINTENANCE TECHNICIAN Begin antibiotics Heat at the site four times daily Follow up in three days ERTY MAINTENANCE TECHNICIAN documented in this encounter Progress Notes Jaylyn Jones PA-C - 06/13/2014 10:16 AM CST SUBJECTIVE: Kaiden Reyna is a 39 year old male who presents to clinic today for the following health issues: Eye(s) Problem ?? Onset: yesterday ?? Description: Location: left Pain: YES Redness: YES ?? Accompanying Signs & Symptoms: Discharge/mattering: no Swelling: YES Visual changes: YES Fever: no Nasal Congestion: no Bothered by bright lights: no ?? History: Trauma: no Foreign body exposure: no ?? Precipitating factors: Wearing contacts: no ?? Alleviating factors: Improved by: nothing ?? Therapies Tried and outcome: warm packs Problem list, Medication list, Allergies, and Medical/Social/Surgical histories reviewed in [facility] andupdated as appropriate. ROS: ROS otherwise negative OBJECTIVE: BP 122/84 Pulse 75 Temp(Src) 98.2 ??F (36.8 ??C) (Oral) Ht 5' 3 (1.6 m) Wt 249 lb 12.8 oz (113.309 kg) BMI 44.26 kg/m2 SpO2 98% Body mass index is 44.26 kg/(m^2). GENERAL: alert, no distress Eyes: eyelids- hordeolum/sty OS-lower medial eyelid Swelling and redness extending inferior eye folds HENT: ear canals- normal; TMs- normal; Nose- normal; Mouth- no ulcers, no lesions NECK: no tenderness, no adenopathy Diagnostic test results: No results found for this or any previous visit (from the past 24 hour(s)). ASSESSMENT/PLAN: 1. Periorbital cellulitis of left eye Begin eye ointment and heat at site. Will proceed with oral antibiotics as well given the extensive redness and history of MRSA. - erythromycin (ROMYCIN) ophthalmic ointment; Place 1 Application Into the left eye 4 times daily Dispense: 1 g; Refill: 0 - doxycycline (VIBRA-TABS) 100 MG tablet; Take 1 tablet (100 mg) by mouth 2 times daily Dispense: 14tablet; Refill: 0 See Patient Instructions Jaylyn Jones PA-C [facility] ERTY MAINTENANCE TECHNICIAN documented in this encounter Nursing Notes Shahana Ram LPN - 06/13/2014 10:41 AM CST Chief Complaint Patient presents with ??? Eye Problem ??? Back Pain Initial BP 122/84 Pulse 75 Temp(Src) 98.2 ??F (36.8 ??C) (Oral) Ht 5' 3 (1.6 m) Wt 249 lb 12.8 oz (113.309 kg) BMI 44.26 kg/m2 SpO2 98% Estimated body mass index is 44.26 kg/(m^2) as calculated from the following: Height as of this encounter: 5' 3 (1.6 m). Weight as of this encounter: 249 lb 12.8 oz (113.309 kg). BP completed using cuff size: large ERTY MAINTENANCE TECHNICIAN documented in this encounter Plan of Treatment Not on filedocumented as of this encounter Visit Diagnoses Diagnosis Periorbital cellulitis of left eye - Carrol griffin documented in this encounter Additional Health Concerns Infection Onset Date Last Indicated Resolved Time MRSA-Contact IsolationComment: Skin 12-25-2012 01/02/2013 documented as of this encounter Care Teams Wiper Blender Relationship Specialty Start Date End Date Christine Marr MD PCP - General Pediatrics 01/14/14 documented as of this encounter
--- OUTSIDE RECORDS SUMMARY | 2022-04-14 09:12 | XMS_ITS | Encounter Summary ---
:1975 Author Organization [facility] Address [address] [place] [address]. [place] [address] Care Team Providers Name Role Phone Christine Spangler MD Primary Care Provider [phone] Reason for Visit Reason Onset Date Comments GI Problem 01/22/2014 Encounter Details Date Type Department Care Team Description 01/22/2014 Telephone [facility] Christine Spangler, GI Problem [address] [place] [address] [facility] [phone] [address] [place], [place] [address] (Wo rk) Social History Tobacco Use Types Packs/Day Years Used Date Smoking Tobacco: Never Smokeless Tobacco: Never Alcohol Use Standard Drinks/Week Comments No 0 (1 standard drink = 0.6 oz pure alcoho l) Sex Assigned at Date Recorded Not on file documented as of this encounter Miscellaneous Notes Telephone Encounter - Sarah Ko - 01/24/2014 10:48 AM CDT Pt has appointment scheduled 01-29-[address] SPANGLER and 02-02-14 with Ti AGUIRRE. He is not sure what DR. SPANGLER will be able to do for him but he does want to see her too. Sarah Ko, RN Telephone Encounter - Sarah Ko - 01/24/2014 9:[address] SPANGLER says she is not going to prescribe narcotics for pt. She would like to see him in clinic next wk and they can figure out mcfp solution for IBS. LMTC for pt now. Sarah Ko RN Telephone Encounter - Sarah Ko - 01/24/2014 9:41 AM CDT Pt has not contacted GI as yet. Calling today as he needs pain meds. Vicodin does not work. He is asking for something like percocet now. He says if he doesn't get something for pain he will make continue to go to ER. He would like to cigar packer and picker signed Rx at front desk specialist. Sarah Ko RN Telephone Encounter - Ladan Arora RN - 01/23/2014 3:25 PM CDT Patient states that last night he had four hours of abdominal pain. Is frustrated that no one can help him figure out the cause of the pain. Since doing the prep for the colonoscopy, stools are dark in color. Has been developing blisters/hives on his palms and soles of his feet, and this occurs with the episodes of pain. Patient did try a laxative yesterday and has been going to the bathroom all day. States I feel likeI am constipated. Patient asking about pain control while waiting for appointments. Is trying to work everyday. Patient is off of work tomorrow, if you would be able to see him tomorrow. Patient is scheduled on 01/29. Vinicio Arora RN Telephone Encounter - Casi Doshi CMA - 01/23/2014 3:14 PM CDT Called pt and LMTCB. Need to give pt msg below and see if he feels like he needs to see Dr. Spangler sooner. Please give him phone number to [facility] [phone] to call to schedule appt. Casi Doshi CMA Telephone Encounter - Christine Spangler MD - 01/23/2014 12:40 PM CDT Lets have him see [facility]. I'd like for him to see dr. Sal, dr. Terry or dr. lopez as they tend soila good at listening to patients. There will be about a month wait to get an appt with them I suspect. Christine Spangler MD Telephone Encounter - Araceli Villeda RN - 01/22/2014 3:57 PM CDT Patient calling reporting that he tried to call GI to be scheduled for a consult but instead patientwas called back by the Safety And Skill Based Pay Manager that did his colonoscopy. He reports the doctor advised for him to take Miralax and mentioned that patient may need a repeat EGD but nothing was scheduled. Patient reports that his symptoms have worsened since his last visit (vomiting daily and continuing to lose weight) with Dr. Spangler and patient states that he is frustrated with how this process has gone and what GI's advise has been. He is wondering if at this time he should follow-up with Dr. Spangler for worsening symptoms or if heshould be referred to a different Safety And Skill Based Pay Manager? Routing to Dr. Spangler to review and further advise. Patient can be reached back at [phone] with response/plan. Araceli Villeda RN documented in this encounter Plan of Treatment Not on filedocumented as of this encounter Visit Diagnoses Not on filedocumented in this encounter Additional Health Concerns Infection Onset Date Last Indicated Resolved Time MRSA-Contact IsolationComment: Skin 12-25-2012 01/02/2013 documented as of this encounter Care Teams Automatic Riveting Machine Operator Relationship Specialty Start Date End Date Christine Spangler MD PCP - General Pediatrics 01/14/14 documented as of this encounter
--- OUTSIDE RECORDS SUMMARY | 2022-04-14 09:12 | XMS_ITS | Encounter Summary ---
:1975 Author Organization [facility] Address [address] [place] [address]. [place] [address] Care Team Providers Name Role Phone Christine Marr MD Primary Care Provider Encounter Details Date Type Department Care Team Description 03/11/2015 Orders Only [facility] Kristal Butler Type 2 diabetes mellitus without complication (H) (Primary Dx); Clinic Tello Alanis PA-C Obesity [address] NO INFO [place], [place] AVAILABLE [phone] 03/31/2022 Social History Tobacco Use Types Packs/Day Years Used Date Smoking Tobacco: Never Smokeless Tobacco: Never Alcohol Use Standard Drinks/Week Comments No 0 (1 standard drink = 0.6 oz pure alcoho l) Sex Assigned at Date Recorded Not on file documented as of this encounter Plan of Treatment Not on filedocumented as of this encounter Visit Diagnoses Diagnosis Type 2 diabetes mellitus without complic ation (H) - Primary Obesity Obesity, unspecified documented in this encounter Additional Health Concerns Infection Onset Date Last Indicated Resolved Time MRSA-Contact IsolationComment: Skin 12-25-2012 01/02/2013 documented as of this encounter Care Teams Electric Power Superintendent Relationship Specialty Start Date End Date Christine Marr MD PCP - General Pediatrics 01/14/14 documented as of this encounter
--- OUTSIDE RECORDS SUMMARY | 2022-04-14 09:12 | XMS_ITS | Encounter Summary ---
:1975 Author Organization [place] Address [address] [place] [id number] Care Team Providers Name Role Phone Christine Marr MD Primary Care Provider [phone] Encounter Details Date Type Department Care Team Description 10/14/2021 Travel Social History Tobacco Use Types Packs/Day Years [...] have Coronavirus/COVID-19? documented as of this encounter Plan of Treatment Not on filedocumented as of this encounter Visit Diagnoses Not on filedocumented in this encounter Additional Health Concerns Infection Onset Date Last Indicated Resolved Time MRSA-Contact IsolationComment: Skin 12-25-2012 01/02/2013 documented as of this encounter Care Teams Logistics Planner Relationship Specialty Start Date End Date Christine Marr MD PCP - General Pediatrics 01/14/14 documented as of this encounter
--- OUTSIDE RECORDS SUMMARY | 2022-04-14 09:12 | XMS_ITS | Encounter Summary ---
:1975 Author Organization [facility] Address [address] [place] [address]. [place] [address] Care Team Providers Name Role Phone Christine Marr MD Primary Care Provider [phone] Reason for Visit Reason Comments Pharyngitis Encounter Details Date Type Department Care Team Description 05/30/2014 Office Visit [facility] Eric Ames MD Throat pain (Primary Dx); [place] [address] [facility] Screening for diabetic perip heral neuropathy; [address] [facility] Diabetes mellitus, type 2; BP Goal <140/ [address] [place] [address] [place] [address] Social History Tobacco Use Types Packs/Day Years Used Date Smoking Tobacco: Never Smokeless Tobacco: Never Alcohol Use Standard Drinks/Week Comments No 0 (1 standard drink = 0.6 oz pure alcoho l) Sex Assigned at Date Recorded Not on file documented as of this encounter Last Filed Vital Signs Vital Sign Reading Time Taken Comments Blood Pressure 120/80 05/30/2014 1:40 PM WANT AD RECEIVER Pulse 84 05/30/2014 1:40 PM WANT AD RECEIVER Temperature 36.8 ??C (98.2 ??F) 05/30/2014 1:40 PM WANT AD RECEIVER Respiratory Rate 17 05/30/2014 1:40 PM WANT AD RECEIVER Oxygen Saturation 97% 05/30/2014 1:40 PM WANT AD RECEIVER Inhaled Oxygen Concentration - - Weight 116.8 kg (257 lb 7 oz) 05/30/2014 1:40 PM WANT AD RECEIVER Height - - Body Mass Index 36.94 01/29/2014 2:04 PM CDT documented in this encounter Patient Instructions Patient InstructionsEric Ames MD - 05/30/2014 1:56 PM CST Increase fluid intake, and begin with saline or water gargles for symptomatic relief. Motrin or tylenol may also help with pharyngitis symptoms. Call back if any problems with handling secretions or with poor oral intake/signs or airway obstruction. Eric Ames MD Internal Medicine and Pediatrics AD RECEIVER documented in this encounter Progress Notes Eric Ames MD - 05/30/2014 12:25 PM CST SUBJECTIVE: Kaiden Reyna is a 39 year old male who presents to clinic today for the following health issues: Sore throat ?? Duration: 4 days ?? Description (location/character/radiation): sore throat and vomiting ?? Intensity: severe ?? Accompanying signs and symptoms: vomiting ?? History (similar episodes/previous evaluation): None ?? Precipitating or alleviating factors: None ?? Therapies tried and outcome: None sore throat began 3 days ago. No fevers. Has been vomiting as well; Mild cough and congestion and stuffy head. No [id number]-[id number] medications. No known strep contacts, but daughter does get it often. Problem list and histories reviewed & adjusted, as indicated. Additional history: as documented Patient Active Problem List Diagnosis ??? CARDIOVASCULAR SCREENING; LDL GOAL LESS THAN 100 ??? Hyperthyroidism ? ? Diabetes mellitus, type 2; BP Goal <140/90 ??? MRSA cellulitis ??? GERD (gastroesophageal reflux disease) Past Surgical History Procedure Laterality Date ??? Gi surgery ??? Esophagoscopy, gastroscopy, duodenoscopy (egd), combined 07/30/2013 Procedure: COMBINED ESOPHAGOSCOPY, GASTROSCOPY, DUODENOSCOPY (EGD), BIOPSY SINGLE OR MULTIPLE; ESOPHAGOSCOPY, GASTROSCOPY, DUODENOSCOPY (EGD) and gastric bx R/O H. Pylori/WW; Surgeon: Prashanth Aj MD; Location: [facility] ??? Colonoscopy 01/17/2014 Dr. Aj [facility] ??? Colonoscopy N/A 01/17/2014 Procedure: COLONOSCOPY; Surgeon: Prashanth Aj MD; Location: [facility] History Substance Use Topics ??? Smoking status: Never Smoker ??? Smokeless tobacco: Never Used ??? Alcohol Use: No Family History Problem Relation Age of Onset ??? Lupus Mother ??? Diabetes Paternal Grandmother ??? Liver Disease Paternal Grandmother ??? Liver Disease Mother ??? Autoimmune Disease Maternal Grandmother Autoimmune hepatitis ??? Autoimmune Disease Mother autoimmune hep ??? C.A.D. Mother ??? Cancer Sister 28 Uterine Cancer ??? Cancer Maternal Grandfather Lung Cancer ??? Diabetes Paternal Grandfather ??? C.A.D. Paternal Grandfather ??? Diabetes Paternal Grandmother No current outpatient prescriptions on file. Allergies Allergen Reactions ??? Penicillins Anaphylaxis ??? Vancomycin Anaphylaxis BP Readings from Last 3 Encounters: 05/30/14 120/80 01/29/14 126/86 01/17/14 113/73 Wt Readings from Last 3 Encounters: 05/30/14 257 lb 7 oz (116.773 kg) 01/29/14 240 lb 9 oz (109.118 kg) 01/14/14 241 lb 4.8 oz (109.453 kg) Labs reviewed in [facility] Problem list, Medication list, Allergies, and Medical/Social/Surgical histories reviewed in [facility] andupdated as appropriate. ROS: C: NEGATIVE for fever, chills, change in weight E/M: NEGATIVE for ear, mouth and throat problems R: NEGATIVE for significant cough or SOB CV: NEGATIVE for chest pain, palpitations or peripheral edema OBJECTIVE: BP 120/80 Pulse 84 Temp(Src) 98.2 ??F (36.8 ??C) (Oral) Resp 17 Wt 257 lb 7 oz (116.773 kg) SpO2 97% Body mass index is 36.94 kg/(m^2). GENERAL: healthy, alert, well nourished, well hydrated, no distress HENT: ear canals- normal; TMs- normal; Nose- normal; Mouth- no ulcers, no lesions NECK: no tenderness, no adenopathy, no asymmetry, no masses, no stiffness; thyroid- normal to palpation RESP: lungs clear to auscultation - no rales, no rhonchi, no wheezes CV: regular rates and rhythm, normal S1 S2, no S3 or S4 and no murmur, no click or rub - ABDOMEN: soft, no tenderness, no hepatosplenomegaly, no masses, normal bowel sounds Diagnostic test results: Diagnostic Test Results: none ASSESSMENT/PLAN: 1. Screening for diabetic peripheral neuropathy - FOOT EXAM 2. Throat pain Increase fluid intake, and begin with saline or water gargles for symptomatic relief. Motrin or tylenol may also help with pharyngitis symptoms. Call back if any problems with handling secretions or with poor oral intake/signs or airway obstruction.. No evidence of strep and no indication for antibiotic. - Strep, Rapid Screen - Beta strep group A culture 3. Diabetes mellitus, type 2; BP Goal <140/90 Due for LDL cholesterol . Check today . - MICROALBUMIN QUANTITATIVE RANDOM URINE - Lipid Profile with reflex to direct LDL See Patient Instructions Eric Ames MD [facility]3] AD RECEIVER documented in this encounter Nursing Notes Lorri Dale CMA - 05/30/2014 1:42 PM CST Chief Complaint Patient presents with ??? Pharyngitis Initial BP 120/80 Pulse 84 Temp(Src) 98.2 ??F (36.8 ??C) (Oral) Resp 17 Wt 257 lb 7 oz (116.773 kg) SpO2 97% Estimated body mass index is 36.94 kg/(m^2) as calculated from the following: Height as of 01/29/14: 5' 10 (1.778 m). Weight as of this encounter: 257 lb 7 oz (116.773 kg). BP completed using cuff size: large Lorri Dale MA AD RECEIVER documented in this encounter Plan of Treatment Not on filedocumented as of this encounter Procedures Procedure Name Priority Date/Time Associated Diagnosis Comme nts BETA HEMOLYTIC Routine 05/30/2014 1:53 PM Throat Pain Results for this STREP GROUP A WANT AD RECEIVER procedure are in CULTURE the results section. C FOOT EXAM Routine 05/30/2014 1:50 PM Screening for WANT AD RECEIVER diabetic peripheral neuropathy RAPID STREP SCREEN Routine 05/30/2014 1:42 PM Throat Pain Res ults for this THROAT SWAB WANT AD RECEIVER procedure are i n the results section. documented in this encounter Results Beta strep group A culture (05/30/2014 1:53 PM WANT AD RECEIVER) Component Value Ref Test Analysis Performed At [facility] gist Range Method Time Signature Specimen Throat [place] Description [facility] Culture Micro No Beta [place] Streptococcus CLINICS isolated [place] Micro Report FINAL 06/01/2014 [place] Status [facility] Specimen Anatomical Collection Method Collection Time Receive d Time (Source) Location / / Volume Laterality Specimen from 05/30/2014 1:53 PM 05/30/19 15 1:55 throat WANT AD RECEIVER PM WANT AD RECEIVER (specimen) Eric Ames MD LAB - MICRO GENERAL ORDERABL ES Performing Organization Address City/[facility]/ZIP Code Phon e Number [facility]3] [address] [place] [phone] Strep, Rapid Screen (05/30/2014 1:42 PM WANT AD RECEIVER) Component Value Ref Test Analysis Performed At [facility] gist Range Method Time Signature Specimen Throat [facility] [place] Rapid Strep A NEGATIVE: No Group A strepto coccal antigen detected by immunoassay, await [place] Screen culture report. [facility] [place] Micro Report FINAL 05/30/2014 [place] Status [facility] [place] Specimen Anatomical Collection Method Collection Time Receive d Time (Source) Location / / Volume Laterality Specimen from 05/30/2014 1:42 PM 05/30/19 15 1:54 throat WANT AD RECEIVER PM WANT AD RECEIVER (specimen) Eric Ames MD LAB - MICRO GENERAL ORDERABL ES Performing Organization Address [facility] Code Phon e Number [facility])[3] [address] [place] [phone] documented in this encounter Visit Diagnoses Diagnosis Throat pain - Primary Screening for diabetic peripheral neurop athy Special screening for other neurological conditions Diabetes mellitus, type 2; BP Goal <140/ 90 Type II or unspecified type diabetes samuel litus without mention of complication, not stated as uncontrolled documented in this encounter Additional Health Concerns Infection Onset Date Last Indicated Resolved Time MRSA-Contact IsolationComment: Skin 12-25-2012 01/02/2013 documented as of this encounter Care Teams Ceramic Engineering Professor Relationship Specialty Start Date End Date Christine Marr MD PCP - General Pediatrics 01/14/14 documented as of this encounter
--- OUTSIDE RECORDS SUMMARY | 2022-04-14 09:12 | XMS_ITS | Encounter Summary ---
:1975 Author Organization [facility] Address [address] [place] [address]. [place] [address] Care Team Providers Name Role Phone Nora Spangler MD Primary Care Provider [phone] Reason for Visit Reason Comments Derm Problem hives and bumps on body afte r pt eat, sx for 2 weeks RECHECK f/u on abdominal pain URI sore throat, cough Encounter Details Date Type Department Care Team Description 01/29/2014 Office Visit [facility] Nora Spangler with vomiting (Primary Dx); Clifton Novak MD Irritable bowel syndrome; [address] [facility] Loss of weight; SURY Lazo [address] [place]; [address] [address] URI (upper respiratory infection); [phone] [place], [place] [address] Rash; [phone] Diabetes [facility], type 2; BP Goal <140/90; (Work) Hyperthyroidism Social History Tobacco Use Types Packs/Day Years Used Date Smoking Tobacco: Never Smokeless Tobacco: Never Alcohol Use Standard Drinks/Week Comments No 0 (1 standard drink = 0.6 oz pure alcoho l) Sex Assigned at Date Recorded Not on file documented as of this encounter Last Filed Vital Signs Vital Sign Reading Time Taken Comments Blood Pressure 126/86 01/29/2014 2:04 PM CDT Pulse 115 01/29/2014 2:04 PM CDT Temperature 37.8 ??C (100 ??F) 01/29/2014 2:04 PM CDT Respiratory Rate 14 01/29/2014 2:04 PM CDT Oxygen Saturation 96% 01/29/2014 2:04 PM CDT Inhaled Oxygen Concentration - - Weight 109.1 kg (240 lb 9 oz) 01/29/2014 2:04 PM CDT Height 177.8 cm (5' 10) 01/29/2014 2:04 PM CDT Body Mass Index 34.52 01/29/2014 2:04 PM CDT documented in this encounter Progress Notes Nora Spangler MD - 01/29/2014 2:07 PM CDT SUBJECTIVE: Kaiden Reyna is a 38 year old male who presents to clinic today for the following health issues: RESPIRATORY SYMPTOMS ?? Duration: sx started yesterday ?? Description nasal congestion, rhinorrhea, sore throat, facial pain/pressure, cough, fever, chills, ear pain both, headache, fatigue/malaise, hoarse voice, myalgias, nausea and stomach ache ?? Severity: moderate-severe ?? Accompanying signs and symptoms: None ?? History (predisposing factors): Pt's daughter was sick ?? Precipitating or alleviating factors: None ?? Therapies tried and outcome: none Rash ?? Duration: sx for 2 weeks ?? Description Location: all over body Itching: severe ?? Intensity: moderate ?? Accompanying signs and symptoms: rash appears after pt eats ?? History (similar episodes/previous evaluation): Yes this happen 2 months ago ?? Precipitating or alleviating factors: New exposures: None Recent travel: no ?? Therapies tried and outcome: none 1) Follow up on abdominal pain- scopes negative. Seeing Price next month. Pain moves around, some intermittent bloating. Still vomiting every other day once a day. Now with diarrhea, no blood in stools. 2) rash with eating- will get patches on skin. He wonders about this being an autoimmune problem. Problem list and histories reviewed & adjusted, as indicated. Additional history: as documented Problem list, Medication list, Allergies, and Medical/Social/Surgical histories reviewed in EPIC andupdated as appropriate. ROS: C: NEGATIVE for fever, chills, change in weight E/M: NEGATIVE for ear, mouth and throat problems R: NEGATIVE for significant cough or SOB CV: NEGATIVE for chest pain, palpitations or peripheral edema OBJECTIVE: BP 126/86 Pulse 115 Temp(Src) 100 ??F (37.8 ??C) (Tympanic) Resp 14 Ht 5' 10 (1.778 m) Wt240 lb 9 oz (109.118 kg) BMI 34.52 kg/m2 SpO2 96% Body mass index is 34.52 kg/(m^2). GENERAL: healthy, alert, well nourished, well [...] click or rub - ABDOMEN: soft, no hepatosplenomegaly, no masses, normal bowel sounds. Minimal tenderness on exam diffusely, markedly improved from last visit Skin: Patches of excoriation and discrete small erythematous lesions on arms and abdomen. ASSESSMENT/PLAN: (787.01) Nausea with vomiting (primary encounter diagnosis) -unclear etiology- EGD/colon and CT scans all negative, lab work up negative up to this point -interestingly in review no sprue panel ever checked and biopsies not done for sprue -check labs Plan: Tissue transglutaminase allen IgA and IgG, TSH, T4 FREE, Antinuclear antibody screen by EIA, Erythrocyte sedimentation rate auto, CRP inflammation (564.1) Irritable bowel syndrome -suspect most symptoms are due to IBS -trial of pamelor, warned of possible side effects -check labs Plan: Tissue transglutaminase allen IgA and IgG, TSH, T4 FREE, nortriptyline (PAMELOR) 10 MG capsule, hyoscyamine (ANASPAZ,LEVSIN) 0.125 MG tablet, Antinuclear antibody screen by EIA, Erythrocyte sedimentation rate auto, CRP inflammation (783.21) Loss of weight -unclear etiology except limiting diet due to above symptoms -check labs Plan: Tissue transglutaminase allen IgA and IgG, TSH, T4 FREE, Antinuclear antibody screen by EIA, Erythrocyte sedimentation rate auto, CRP inflammation (784.1) Throat pain Plan: Strep, Rapid Screen, Beta strep group A culture (465.9) URI (upper respiratory infection) -symptomatic tx (782.1) Rash -this looks mostly ezematous to me -check labs, may need to see pickle water pump operator Plan: Allergy pediatric July profile IgE, Antinuclear antibody screen by EIA, Erythrocyte sedimentation rate auto, CRP inflammation (250.00) Diabetes mellitus, type 2; BP Goal <140/90 -a1c is normal with weight loss and diet changes Plan: Hemoglobin A1c, CANCELED: Microalbumin quantitative random urine (242.90) Hyperthyroidism Plan: TSH, T4 FREE Follow up with Provider - 1 month NORA SPANGLER MD [facility] documented in this encounter Nursing Notes Casi Doshi CMA - 01/29/2014 2:06 PM CDT Chief Complaint Patient presents with ??? Derm Problem hives and bumps on body after pt eat, sx for 2 weeks ??? RECHECK f/u on abdominal pain ??? URI sore throat, cough Initial BP 126/86 Pulse 115 Temp(Src) 100 ??F (37.8 ??C) (Tympanic) Resp 14 Ht 5' 10 (1.778m) Wt 240 lb 9 oz (109.118 kg) BMI 34.52 kg/m2 SpO2 96% Estimated body mass index is 34.52 kg/(m^2) as calculated from the following: Height as of this encounter: 5' 10 (1.778 m). Weight as of this encounter: 240 lb 9 oz (109.118 kg). BP completed using cuff size: large Casi Doshi CMA documented in this encounter Plan of Treatment Not on filedocumented as of this encounter Procedures Procedure Name Priority Date/Time Associated Comments Diagnosis TSH Routine 01/29/2014 2:42 Nausea With Results for this PM CDT Vomiting procedure are in Irritable Bowel the results Syndrome section. Loss Of Weight Hyperthyroidism TISSUE TRANSGLUTAMINASE Routine 01/29/2014 2:42 Nausea With R esults for this ALLEN IGA AND IGG PM CDT Vomiting procedure are in Irritable Bowel the results Syndrome section. Loss Of Weight T4 FREE Routine 01/29/2014 2:42 Nausea With Results for this PM CDT Vomiting procedure are in Irritable Bowel the results Syndrome section. Loss Of Weight Hyperthyroidism HEMOGLOBIN A1C Routine 01/29/2014 2:42 Diabetes mellitus, Resu lts for this PM CDT type 2; BP Goal procedure ar e in <140/90 the results section. ERYTHROCYTE Routine 01/29/2014 2:42 Nausea With Results for this SEDIMENTATION RATE AUTO PM CDT Vomiting procedure are in Irritable Bowel the results Syndrome section. Loss Of Weight Rash CRP INFLAMMATION Routine 01/29/2014 2:42 Nausea With Results for this PM CDT Vomiting procedure are in Irritable Bowel the results Syndrome section. Loss Of Weight Rash ANTINUCLEAR ANTIBODY Routine 01/29/2014 2:42 Nausea With Resu lts for this SCREEN BY EIA PM CDT Vomiting procedure are in Irritable Bowel the results Syndrome section. Loss Of Weight Rash ALLERGY PEDIATRIC MARCH Routine 01/29/2014 2:42 Rash R esults for this PROFILE IGE PM CDT procedure are i n the results section. BETA HEMOLYTIC STREP Routine 01/29/2014 2:21 Throat Pain Resu lts for this GROUP A CULTURE PM CDT procedure ar e in the results section. RAPID STREP SCREEN Routine 01/29/2014 2:04 Throat Pain Result s for this THROAT SWAB PM CDT procedure are i n the results section. documented in this encounter Results (ABNORMAL) CRP inflammation (01/29/2014 2:42 PM CDT) Patholo gist Method Time Signature CRP Inflammation 14.0 (H) 0.0 - 8.0 [facility] mg/L [facility] LABS Specimen Anatomical Collection Method Collection Time Receive d Time (Source) Location / / Volume Laterality Blood specimen 01/29/2014 2:42 PM 014 2:44 (specimen) CDT PM CDT Nora Spangler MD LAB - BLOOD ORDERABLES Performing Organization Address City/State/ZIP Code Phon e Number [facility] [address] [place], [place] [id number] [place] [address] LABS Erythrocyte sedimentation rate auto (01/29/2014 2:42 PM CDT) P athologist Signature Sed Rate 10 0 - 15 mm/h [facility] [place] Specimen Anatomical Collection Method Collection Time Receive d Time (Source) Location / / Volume Laterality Blood specimen 01/29/2014 2:42 PM 014 2:44 (specimen) CDT PM CDT Nora Spangler MD LAB - BLOOD ORDERABLES Performing Organization Address City/State/ZIP Code Phon e Number [address] [address] Antinuclear antibody screen by EIA (01/29/2014 2:42 PM CDT) Patholo gist Method Time Signature MARIA ELENA Screen by <1.0 <1.0 [facility] EIA Interpretation: ??Negative [facility] LABS Specimen Anatomical Collection Method Collection Time Receive d Time (Source) Location / / Volume Laterality Blood specimen 01/29/2014 2:42 PM 014 2:44 (specimen) CDT PM CDT Nora Spangler MD LAB - BLOOD ORDERABLES Performing Organization Address City/State/ZIP Code Phon e Number [facility] [address] [place] [address] [facility] LABS (ABNORMAL) Allergy pediatric March profile IgE (01/29/2014 2:42 PM CDT) P athologist Signature IGE 12,671 (H) 0 - 113 [facility] LABS Comment: CORRECTED ON 01/30 AT 1006: PRE VIOUSLY REPORTED >3000 Allergen Cat Dander <0.35 <0.35 [facility](A)/L [facility] Interp: Class 0 - Negative, Consider nonallergic causes LABS Allergen Dog Dander 0.93 (H) <0.35 [facility])/L [facility] LABS Comment: Interp: Class II-Moderate Response, Prob ably a contributing factor to total allergic load Allergen Fish(Cod) 0.59 (H) <0.35 [facility]L [facility] LABS Comment: Interp: Class I - Low Response, Uncertain clinical relevance Allergen Egg White 0.75 (H) <0.35 [facility]L [facility] LABS Comment: Interp: Class II-Moderate Response, Prob ably a contributing factor to total allergic load Allergen Milk <0.35 <0.35 [facility](A)/L [facility] Interp: Class 0 - Negative, Consider nonallergic causes LABS Allergen Peanut 2.30 (H) <0.35 [facility](A)/L [facility] LABS Comment: Interp: Class II-Moderate Response, Prob ably a contributing factor to total allergic load Allergen Soybean IgE 0.97 (H) <0.35 K[facility](A)/L [facility] LABS Comment: Interp: Class II-Moderate Response, Prob ably a contributing factor to total allergic load Allergen Wheat 4.49 (H) <0.35 [facility](A)/L [facility] LABS Comment: Interp: Class III - High Respon se, Clinically relevant Allergen Cockroach 5.37 (H) <0.35 [facility]L [facility] LABS Comment: Interp: Class III - High Respon se, Clinically relevant Allergen D farinae 6.79 (H) <0.35 [facility]L [facility] LABS Comment: Interp: Class III - High Respon se, Clinically relevant Allergen A alternata 11.00 (H) <0.35 [facility])/L [facility] LABS Comment: Interp: Class III - High Respon se, Clinically relevant Allergen, D Pteronyssinus 7.66 (H) <0.35 [facility])/L [facility] LABS Comment: Interp: Class III - High Respon se, Clinically relevant Specimen Anatomical Collection Method Collection Time Receive d Time (Source) Location / / Volume Laterality Blood specimen 01/29/2014 2:42 PM 014 2:44 (specimen) CDT PM CDT Nora Spangler MD LAB - BLOOD ORDERABLES Performing Organization Address City/State/ZIP Code Phon e Number [facility] [address] [place], [place] [address] [place] [address] LABS (ABNORMAL) T4 FREE (01/29/2014 2:42 PM CDT) athologist Signature T4 Free 0.73 (L) 0.76 - [facility] 1.46 ng/dL [facility] Comment: Effective 12/11/2013, the reference range for this assay has changed to reflect new instrumentation/methodology. Specimen Anatomical Collection Method Collection Time Receive d Time (Source) Location / / Volume Laterality Blood specimen 01/29/2014 2:42 PM 014 2:44 (specimen) CDT PM CDT Nora Spangler MD LAB - BLOOD ORDERABLES Performing Organization Address City/State/ZIP Code Phon e Number [facility] [address] [place] [address] [facility] [address] [place], [place] [address] TSH (01/29/2014 2:42 PM CDT) P athologist Signature TSH 1.20 0.40 - 4.00 [facility] mU/L [facility] Comment: Effective 12/11/2013, the reference range for this assay has changed to reflect new instrumentation/methodology. Specimen Anatomical Collection Method Collection Time Receive d Time (Source) Location / / Volume Laterality Blood specimen 01/29/2014 2:42 PM 014 2:44 (specimen) CDT PM CDT Nora Spangler MD LAB - BLOOD ORDERABLES Performing Organization Address City/[facility]/ZIP Code Phon e Number [facility] [address] [place] [address] [facility] [address] [place], [place] [address] Tissue transglutaminase allen IgA and IgG (01/29/2014 2:42 PM CDT) Patholo gist Method Time Signature Tissue <1.0 0 - 3.9 [facility] Transglutaminase Interpretation: ??Negative U/mL [facility] LABS Tissue 1.3 0 - 5.9 [facility] Transglutaminase Allen U/mL [facility] LAB[facility] Comment: Interpretation: Negative Specimen Anatomical Collection Method Collection Time Receive d Time (Source) Location / / Volume Laterality Blood specimen 01/29/2014 2:42 PM 014 2:44 (specimen) CDT PM CDT Nora Spangler MD LAB - BLOOD ORDERABLES Performing Organization Address City/State/ZIP Code Phon e Number [facility] [address] [place] [address] [facility] LABS Hemoglobin A1c (01/29/2014 2:42 PM CDT) P athologist Signature Hemoglobin A1C 5.9 4.3 - 6.0 [facility] [place] Specimen Anatomical Collection Method Collection Time Receive d Time (Source) Location / / Volume Laterality Blood specimen 01/29/2014 2:42 PM 014 2:44 (specimen) CDT PM CDT Nora Spangler MD LAB - BLOOD ORDERABLES Performing Organization Address City/[facility]/ZIP Code Phon e Number [facility] [address] [place] [address] [phone] Beta strep group A culture (01/29/2014 2:21 PM CDT) Component Value Ref Test Analysis Performed At [facility] gist Range Method Time Signature Specimen Throat [facility]PH[facility] Description [facility] [place] Culture Micro No Beta [facility] Streptococcus CLINICS isolated [place] Micro Report FINAL 01/31/2014 [facility] Status [facility] Specimen Anatomical Collection Method Collection Time Receive d Time (Source) Location / / Volume Laterality Specimen from 01/29/2014 2:21 PM 01/30/20 14 2:24 throat CDT PM CDT (specimen) Nora Spangler MD LAB - MICRO GENERAL ORDERAB LES Performing Organization Address [facility]/ZIP Code Phon e Number [facility] [address] [place] [address] [phone] Strep, Rapid Screen (01/29/2014 2:04 PM CDT) Component Value Ref Test Analysis Performed At [facility] Range Method Time Signature Specimen Throat JOSEPHINE Description [facility] [place] Rapid Strep A NEGATIVE: No Group A strepto coccal antigen detected by immunoassay, await [facility] Screen culture report. [facility] [place] Micro Report FINAL 01/29/2014 [facility] Status [facility] [place] Specimen Anatomical Collection Method Collection Time Receive d Time (Source) Location / / Volume Laterality Specimen from 01/29/2014 2:04 PM 01/30/20 14 2:24 throat CDT PM CDT (specimen) Nora Spangler MD LAB - MICRO GENERAL ORDERAB LES Performing Organization Address City/[facility]/ZIP Code Phon e Number [facility] [place] [address] documented in this encounter Visit Diagnoses Diagnosis Nausea with vomiting - Primary Irritable bowel syndrome Loss of weight Throat pain URI (upper respiratory infection) Acute upper respiratory infections of un specified site Rash Rash and other nonspecific skin eruption Diabetes mellitus, type 2; BP Goal <140/ 90 Type II or unspecified type diabetes samuel litus without mention of complication, not stated as uncontrolled Hyperthyroidism Thyrotoxicosis without mention of goiter or other cause, without mention of thyrotoxic crisis or storm documented in this encounter Additional Health Concerns Infection Onset Date Last Indicated Resolved Time MRSA-Contact IsolationComment: Skin 12-25-2012 01/02/2013 documented as of this encounter Care Teams Composite Mechanic Relationship Specialty Start Date End Date Nora Spagnler MD PCP - General Pediatrics 01/14/14 documented as of this encounter
--- OUTSIDE RECORDS SUMMARY | 2022-04-14 09:12 | XMS_ITS | Encounter Summary ---
:1975 Author Organization [place] Address [address] [place] [address]. [place] [address] Care Team Providers Name Role Phone Christine Marr MD Primary Care Provider [phone] Reason for Visit Reason Onset Date Comments Neurologic Problem 06/18/2014 Encounter Details Date Type Department Care Team Description 06/18/2014 Telephone [facility] Eag Christine Marr Neurologic Problem [address] [facility] [place] [address] [facility] [phone] [address] [place], [place] [address] (Wo rk) Social History Tobacco Use Types Packs/Day Years Used Date Smoking Tobacco: Never Smokeless Tobacco: Never Alcohol Use Standard Drinks/Week Comments No 0 (1 standard drink = 0.6 oz pure alcoho l) Sex Assigned at Date Recorded Not on file documented as of this encounter Miscellaneous Notes Telephone Encounter - Araceli Villeda RN - 06/18/2014 4:12 PM CST Patient calling reporting that he fell and hit his head 2 days ago. Patient reports that at that time he went to the [facility] ER and was sent home with diagnosis of concussion (no records on file). Patient reports that beginning today patient developed a throbbing headache, eye twitching, muscle twitching, speaking slowly and difficulty word finding. Patient states he feels groggy and out of it. Since these are new symptoms for patient, advised for patient to be seen in the ER for further eval at this time. Patient is receptive of this and will have his drive him to the ER. He will have records send to [place] to update chart as well. Araceli Villeda RN OSIVE TECHNICIAN documented in this encounter Plan of Treatment Not on filedocumented as of this encounter Visit Diagnoses Not on filedocumented in this encounter Additional Health Concerns Infection Onset Date Last Indicated Resolved Time MRSA-Contact IsolationComment: Skin 12-25-2012 01/02/2013 documented as of this encounter Care Teams Associate Financial Advisor Relationship Specialty Start Date End Date Christine Marr MD PCP - General Pediatrics 01/14/14 documented as of this encounter
--- OUTSIDE RECORDS SUMMARY | 2022-04-14 09:12 | XMS_ITS | Encounter Summary ---
:1975 Author Organization [place] Address [address] [place] [address]. [place] [address] Care Team Providers Name Role Phone Christine Marr MD Primary Care Provider [phone] Reason for Visit Reason Onset Date Comments RECHECK Erroneous encounter-disregard 06/23/2014 Encounter Details Date Type Department Care Team Description 06/16/2014 Office Visit [facility] Gifty Turner MD ERRONEOUS [facility] ENCOUNTER--DISREGARD [facility] [address] (Primary Dx) [place] [id number] [address] [place], [place] [address] (Wo rk) Social History Tobacco Use Types Packs/Day Years Used Date Smoking Tobacco: Never Smokeless Tobacco: Never Alcohol Use Standard Drinks/Week Comments No 0 (1 standard drink = 0.6 oz pure alcoho l) Sex Assigned at Date Recorded Not on file documented as of this encounter Progress Notes Carito Forte MD - 06/23/2014 10:06 AM CST This encounter was opened in error. Please disregard. W[employer] SALES documented in this encounter Plan of Treatment Not on filedocumented as of this encounter Visit Diagnoses Diagnosis ERRONEOUS ENCOUNTER--DISREGARD - Primary documented in this encounter Additional Health Concerns Infection Onset Date Last Indicated Resolved Time MRSA-Contact IsolationComment: Skin 12-25-2012 01/02/2013 documented as of this encounter Care Teams Slab Tripper Relationship Specialty Start Date End Date Christine Marr MD PCP - General Pediatrics 01/14/14 documented as of this encounter
--- OUTSIDE RECORDS SUMMARY | 2022-04-14 09:12 | XMS_ITS | Encounter Summary ---
:1975 Author Organization [facility] Address [address] [place] [address]. [place] [address] Care Team Providers Name Role Phone Christine Marr MD Primary Care Provider Reason for Visit Reason Onset Date Comments Panel Management 02/19/2015 Encounter Details Date Type Department Care Team Description 02/19/2015 Telephone [facility] Eric Mejia MD Panel Management [facility] [address] [place] [address] [facility] [phone] [place] [address] (Wo rk) Social History Tobacco Use Types Packs/Day Years Used Date Smoking Tobacco: Never Smokeless Tobacco: Never Alcohol Use Standard Drinks/Week Comments No 0 (1 standard drink = 0.6 oz pure alcoho l) Sex Assigned at Date Recorded Not on file documented as of this encounter Miscellaneous Notes Telephone Encounter - Lorri Dale, [facility] - 03/19/2015 10:08 AM CST Type of outreach: Phone, left message for patient to call back. Health Maintenance Due Topic Date Due ??? EYE EXAM Q1 YEAR( NO INBASKET) 1978 ? ? PNEUMOVAX 1X HI RISK PATIENT < 65 (NO IB MSG) 1979 ??? MICROALBUMIN Q1 YEAR( NO INBASKET) 11/07/2013 ??? LIPID MONITORING Q1 YEAR( NO INBASKET) 07/26/2014 ??? A1C Q6 MO( NO INBASKET) 07/29/2014 ??? INFLUENZA VACCINE (SYSTEM ASSIGNED) 01/13/2015 Lorri Dale MA STRIAL RENDERER Telephone Encounter - Mayte Dasilva - 03/05/2015 10:51 AM CDT Left message for patient to schedule appointment. Telephone Encounter - Lorri Dale CMA - 03/04/2015 3:37 PM CDT Type of outreach: Mayte please review bellow. Per Dr. Ames Patient is due for a office visit with Dr. Marr. Thanks Health Maintenance Due Topic Date Due ??? EYE EXAM Q1 YEAR( NO INBASKET) 1978 ? ? PNEUMOVAX 1X HI RISK PATIENT < 65 (NO IB MSG) 1979 ??? MICROALBUMIN Q1 YEAR( NO INBASKET) 11/07/2013 ??? LIPID MONITORING Q1 YEAR( NO INBASKET) 07/26/2014 ??? A1C Q6 MO( NO INBASKET) 07/29/2014 ??? INFLUENZA VACCINE (SYSTEM ASSIGNED) 01/13/2015 Lorri Dale MA Telephone Encounter - Eric Ames MD - 02/19/2015 2:11 PM CDT Please call. Failing on multeiple diabetes mellitus measures. Needs to get into see PCP (Tejinder) this month, please. Eric Ames MD Internal Medicine and Pediatrics documented in this encounter Plan of Treatment Not on filedocumented as of this encounter Visit Diagnoses Not on filedocumented in this encounter Additional Health Concerns Infection Onset Date Last Indicated Resolved Time MRSA-Contact IsolationComment: Skin 12-25-2012 01/02/2013 documented as of this encounter Care Teams Cte Teacher Relationship Specialty Start Date End Date Christine Marr MD PCP - General Pediatrics 01/14/14 documented as of this encounter
--- OUTSIDE RECORDS SUMMARY | 2022-04-14 09:12 | XMS_ITS | Encounter Summary ---
:1975 Author Organization [facility] Address [address] [place] [address]. [place] [address] Care Team Providers Name Role Phone Christine Marr MD Primary Care Provider [phone] Reason for Referral [facility] - Closed Specialty Diagnoses / Procedures Referred By Contact Refer red To Contact Diagnoses Low back pain Hilary Pearson Im/[facility] [address] [place] [address] ADMIN OFFICE [place], [place] [address] Phone: [phone] Referral ID Status Reason Start Date Expiration Date Visits Requ ested Visits Authorized [id number] Closed 06/23/2014 12/20/2014 1 1 EATION COORDINATOR Reason for Visit Reason Comments Back Pain Encounter Details Date Type Department Care Team Description 06/23/2014 Office Visit [facility] Gifty Turner MD Low back pain (Primary Dx); [place] [facility] Need for prophylactic vaccination agains t Streptococcus pneumoniae (pneumococcus) [address] [place] [address] [facility] [address] [place], [place] [id number] Social History Tobacco Use Types Packs/Day Years Used Date Smoking Tobacco: Never Smokeless Tobacco: Never Alcohol Use Standard Drinks/Week Comments No 0 (1 standard drink = 0.6 oz pure alcoho l) Sex Assigned at Date Recorded Not on file documented as of this encounter Last Filed Vital Signs Vital Sign Reading Time Taken Comments Blood Pressure 132/86 06/23/2014 1:43 PM RECREATION COORDINATOR Pulse 100 06/23/2014 1:43 PM RECREATION COORDINATOR Temperature 36.7 ??C (98 ??F) 06/23/2014 1:43 PM RECREATION COORDINATOR Respiratory Rate 20 06/23/2014 1:43 PM RECREATION COORDINATOR Oxygen Saturation 96% 06/23/2014 1:43 PM RECREATION COORDINATOR Inhaled Oxygen Concentration - - Weight 115.8 kg (255 lb 5 oz) 06/23/2014 1:43 PM RECREATION COORDINATOR Height - - Body Mass Index 37.7 06/20/2014 4:01 PM RECREATION COORDINATOR documented in this encounter Progress Notes Jovita Ames MD - 06/24/2014 8:04 AM CST I have seen this patient and examined him in the presence of Dr. Turner. I was present during the kumar components of the presenting complaints, physical exam, diagnosis, and plan, and fully concur with the plan as listed in the resident's note. EATION COORDINATOR Gifty Turner MD - 06/23/2014 9:05 AM CST SUBJECTIVE: Kaiden Reyna is a 39 year old male who presents to clinic today for the following health issues: Back Pain ?? Duration: 3 weeks ago Specific cause: fell on ice- got a concussion ?? Description: Location of pain: low back right Character of pain: sharp and stabbing Pain radiation:to mid back New numbness or weakness in legs, not attributed to pain: no ?? Intensity: Currently 6/10 ?? History: Pain interferes with job: YES, History of back problems: has a history back problems Any previous MRI or X-rays: Remote history showed degenerative disc disease Sees a specialist for back pain: No Therapies tried without relief: otc Advil and tylenol, flexeril, heat and ice ?? Alleviating factors: Improved by: none ?? Precipitating factors: Worsened by: bending over, walking, sitting, laying down, generally with everything ?? Functional and Psychosocial Screen (Samuel STarT Back): Not performed today Patient was seen in urgent care for this issue x2. Prescribed flexeril without significant benefit. Also was given norco by the ER after the had the initial fall and got a concussion. 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 Denies numbness or tingling, no changes in bowel or bladder, no fever, no weakness. Problem list and histories reviewed & adjusted, as indicated. Additional history: as documented Patient Active Problem List Diagnosis ??? CARDIOVASCULAR SCREENING; LDL GOAL LESS THAN 100 ??? Hyperthyroidism ??? MRSA cellulitis ??? GERD (gastroesophageal reflux disease) ? ? Type 2 diabetes, HbA1C goal < 8% Past Surgical History Procedure Laterality Date ??? Gi surgery ??? Esophagoscopy, gastroscopy, duodenoscopy (egd), combined 07/30/2013 Procedure: COMBINED ESOPHAGOSCOPY, GASTROSCOPY, DUODENOSCOPY (EGD), BIOPSY SINGLE OR MULTIPLE; ESOPHAGOSCOPY, GASTROSCOPY, DUODENOSCOPY (EGD) and gastric bx R/O H. Pylori/WW; Surgeon: Prashanth Aj MD; Location: [facility] ??? Colonoscopy 01/17/2014 Dr. Aj [facility] ??? Colonoscopy N/A 01/17/2014 Procedure: COLONOSCOPY; [...] C.A.D. Paternal Grandfather ??? Diabetes Paternal Grandmother Current Outpatient Prescriptions Medication Sig Dispense Refill ??? HYDROcodone-acetaminophen (NORCO) 5-325 MG per tablet Take 1 tablet by mouth every 6 hours as needed for moderate to severe pain 20 tablet 0 ??? ondansetron (ZOFRAN ODT) 4 MG disintegrating tablet Take 1 tablet (4 mg) by mouth every 8 hours as needed for nausea 10 tablet 0 ??? omeprazole (PRILOSEC) 20 MG capsule Take 1 capsule (20 mg) by mouth daily for 14 days 14 capsule0 ??? erythromycin (ROMYCIN) ophthalmic ointment Place 1 Application Into the left eye 4 times daily 1g 0 ??? doxycycline (VIBRA-TABS) 100 MG tablet Take 1 tablet (100 mg) by mouth 2 times daily 14 tablet 0 ??? ASPIRIN NOT PRESCRIBED, INTENTIONAL, 1 each continuous prn for other Antiplatelet medication notprescribed intentionally due to 0 each 0 ??? STATIN NOT PRESCRIBED, INTENTIONAL, 1 each daily Statin not prescribed intentionally due to Other: 0 each 0 ??? KERA NOT PRESCRIBED, INTENTIONAL, 1 each daily KERA Inhibitor not prescribed due to Other: 0 each 0 OBJECTIVE: BP 132/86 Pulse 100 Temp(Src) 98 ??F (36.7 ??C) (Oral) Resp 20 Wt 115.809 kg (255 lb 5 oz) SpO2 96% Body mass index is 37.69 kg/(m^2). GENERAL: healthy, alert and no distress NECK: no adenopathy, full range of motion without pain. CV: regular rate and rhythm, normal S1 S2, no S3 or S4, no murmur, click or rub, no peripheral edemaand peripheral pulses strong Comprehensive back pain exam: Tenderness of midlumbar para spinal muscles- there is a hardened not of muscle on the right midlumbar region. No spinous process tenderness, no thoracic tenderness, Pain limits the following motions: flexion and extension, full ROM to lateral bending and rotation, Lower extremity strength functional and equal on both sides, Lower extremity reflexes within normal limits bilaterally, Lower extremity sensation normal and equal on both sides ASSESSMENT/PLAN: (724.2) Low back pain (primary encounter diagnosis) Comment: Plan: [facility] PT, HAND, AND CHIROPRACTIC REFERRAL- spine pathway, HYDROcodone-acetaminophen (NORCO) 5-325 MG per Tablet- 20 tablets. We discussed the need to not drive or operate machinery while taking this medication. We also discussed the most common side effects patient expressed understanding. Gave a note for work Discussed need to continue to stay active as tolerated, continue adjunct therapies such a stretching, ice/heat/massage. Follow up as needed. Gifty Turner M.D. PGY-4 Medicine-Pediatrics [facility] [phone] Patient and plan of care discussed with Dr. Ames EATION COORDINATOR documented in this encounter Nursing Notes Lorri Dale CMA - 06/23/2014 1:44 PM CST Chief Complaint Patient presents with ??? Back Pain Initial BP 132/86 Pulse 100 Temp(Src) 98 ??F (36.7 ??C) (Oral) Resp 20 Wt 255 lb 5 oz (115.809 kg) SpO2 96% Estimated body mass index is 37.69 kg/(m^2) as calculated from the following: Height as of 15: 5' 9 (1.753 m). Weight as of this encounter: 255 lb 5 oz (115.809 kg). BP completed using cuff size: large Lorri Dale MA EATION COORDINATOR documented in this encounter Miscellaneous Notes Addendum Note - Jovita Ames MD - 06/24/2014 11:56 AM RECREATION COORDINATOR Addended by: JOVITA AMES on: 06/24/2014 11:56 AM Modules accepted: Level of Service EATION COORDINATOR documented in this encounter Plan of Treatment Scheduled Referrals Name Type Priority Associated Diagnoses Order S chedule [facility] PT, HAND, AND Referral Routine Low back pain Ordered: 06/23/2014 CHIROPRACTIC REFERRAL documented as of this encounter Visit Diagnoses Diagnosis Low back pain - Primary Lumbago Need for prophylactic vaccination agains t Streptococcus pneumoniae (pneumococcus) Need for prophylactic vaccination agains t streptococcus pneumoniae (pneumococcus) documented in this encounter Additional Health Concerns Infection Onset Date Last Indicated Resolved Time MRSA-Contact IsolationComment: Skin 12-25-2012 01/02/2013 documented as of this encounter Care Teams Seo Manager Relationship Specialty Start Date End Date Christine Marr MD PCP - General Pediatrics 01/14/14 documented as of this encounter
--- OUTSIDE RECORDS SUMMARY | 2022-04-14 09:12 | XMS_ITS | Encounter Summary ---
:1975 Author Organization [facility] Address [address] [place] [address]. [place] [address] Care Team Providers Name Role Phone Christine Marr MD Primary Care Provider [phone] Reason for Visit Reason Onset Date Comments Panel Management 01/22/2015 Encounter Details Date Type Department Care Team Description 01/22/2015 Telephone [facility] E[facility] Christine Marr Panel Management [address] [facility] [place] [address] [facility] [phone] [address] [place], [place] [address] (Wo rk) Social History Tobacco Use Types Packs/Day Years Used Date Smoking Tobacco: Never Smokeless Tobacco: Never Alcohol Use Standard Drinks/Week Comments No 0 (1 standard drink = 0.6 oz pure alcoho l) Sex Assigned at Date Recorded Not on file documented as of this encounter Miscellaneous Notes Telephone Encounter - Casi Doshi CMA - 02/05/2015 8:53 AM CDT Mail pt letter. Casi Doshi CMA Telephone Encounter - Casi Doshi CMA - 01/22/2015 1:07 PM CDT Panel Management Review Date of last visit with a [facility] provider: Archana Goldberg on 06/14/2014. Date of next visit with a [facility] provider: None. Problem List Patient Active Problem List Diagnosis ??? CARDIOVASCULAR SCREENING; LDL GOAL LESS THAN 100 ??? Hyperthyroidism ??? MRSA cellulitis ??? GERD (gastroesophageal reflux disease) ? ? Type 2 diabetes, HbA1C goal < 8% Health Maintenance List Health Maintenance Topic Date Due ??? EYE EXAM Q1 YEAR( NO INBASKET) 1978 ? ? PNEUMOVAX 1X HI RISK PATIENT < 65 (NO IB MSG) 1979 ??? MICROALBUMIN Q1 YEAR( NO INBASKET) 11/07/2013 ??? LIPID MONITORING Q1 YEAR( NO INBASKET) 07/26/2014 ??? A1C Q6 MO( NO INBASKET) 07/29/2014 ??? INFLUENZA VACCINE (SYSTEM ASSIGNED) 01/13/2015 ??? FOOT EXAM Q1 YEAR( NO INBASKET) 05/30/2015 ??? CREATININE Q1 YEAR (NO INBASKET) 06/20/2015 ??? TSH W/ FREE T4 REFLEX Q2 YEAR (NO INBASKET) 06/20/2016 ??? TETANUS IMMUNIZATION (SYSTEM ASSIGNED) 05/15/2018 For diabetic patients with hyperlipidemia, only choose diabetes. Patient has the following on his problem list: Diabetes and CV review ASA: Passed A1C goal on problem list: <7.0 Last A1C A1C 5.9 01/29/2014 A1C 6.9 07/26/2013 A1C 7.1 11/07/2012 A1C 7.0 10/27/2012 A1C tested: Passed LDL goal on problem list: <100 Last LDL: CHOL 158 07/26/2013 HDL 33 07/26/2013 LDL 108 07/26/2013 TRIG 88 07/26/2013 CHOLHDLRATIO 4.9 07/26/2013 LDL tested: Failed Last three blood pressure readings: BP Readings from Last 3 Encounters: 06/23/14 132/86 06/20/14 162/101 06/13/14 122/84 Composite cancer screening Chart review shows that this patient is due/due soon for the following None Tobacco History History Smoking status ??? Never Smoker Smokeless tobacco ??? Never Used Summary: Patient is due/failing the following: Diabetes f/u and labs Action needed: Patient needs office visit for diabetic check. Type of outreach: Phone, left message for patient to call back. Questions for provider review: None Please indicate office visit, lab, MTM, or nurse appt if needed. Indicate fasting or not fasting. Casi Doshi CMA Chart routed to Care Team . documented in this encounter Plan of Treatment Not on filedocumented as of this encounter Visit Diagnoses Not on filedocumented in this encounter Additional Health Concerns Infection Onset Date Last Indicated Resolved Time MRSA-Contact IsolationComment: Skin 12-25-2012 01/02/2013 documented as of this encounter Care Teams Older Adult Social Work Specialist Relationship Specialty Start Date End Date Christine Marr MD PCP - General Pediatrics 01/14/14 documented as of this encounter
--- OUTSIDE RECORDS SUMMARY | 2022-04-14 09:12 | XMS_ITS | Clinical Summary ---
:1975 Author Organization [facility] Address [address] [place] [address] Care Team Providers Name Role Phone Christine Marr MD Primary Care Provider [phone] Allergies Active Allergy Reactions Severity Noted Date Comments Sulfamethoxazole W/Trimethoprim Anaphylaxis High 5 Angioedema Clindamycin Anaphylaxis High 06/13/2014 Angioedema Diphenhydramine Hives 06/13/2014 Penicillins Anaphylaxis High 10/26/2012 Vancomycin Anaphylaxis High 11/05/2012 Medications Medication Sig Dispensed Refills Start Date End Date Status ASPIRIN NOT 1 each continuous 0 each 0 05/30/2014 Active PRESCRIBED, prn for other INTENTIONAL,Indicati Antiplatelet ons: Diabetes medication not mellitus, type 2 (H) prescribed intentionally due to STATIN NOT 1 each daily Statin 0 each 0 05/30/2014 Active PRESCRIBED, not prescribed INTENTIONAL,Indicati intentionally due to ons: Diabetes Other: mellitus, type 2 (H) KERA NOT PRESCRIBED, 1 each daily KERA 0 each 0 05/30/2014 Active INTENTIONAL,Indicati Inhibitor not ons: Diabetes prescribed due to mellitus, type 2 (H) Other: erythromycin Place 1 Application 1 g 0 06/13/2014 Active (ROMYCIN) ophthalmic Into the left eye 4 ointmentIndications: times daily Periorbital cellulitis of left eye doxycycline Take 1 tablet (100 14 tablet 0 06/13/2014 Active (VIBRA-TABS) 100 MG mg) by mouth 2 times tabletIndications: daily Periorbital cellulitis of left eye HYDROcodone-acetamin Take 1 tablet by 20 tablet 0 06/23/2014 Active ophen (NORCO) 5-325 mouth every 6 hours MG per as needed for tabletIndications: moderate to severe Low back pain pain Active Problems Problem Noted Date Type 2 diabetes mellitus without complication 06/06/19 15 GERD (gastroesophageal reflux disease) 10/30/2013 CARDIOVASCULAR SCREENING; LDL GOAL LESS THAN 100 11/07 Hyperthyroidism 11/07/2012 MRSA cellulitis Resolved Problems Problem Noted Date Resolved Date Diabetes mellitus, type 2; BP Goal <140/90 11/07/2012 06/06/2014 Cellulitis and abscess 10/26/2012 07/08/2013 Immunizations Name Administration Dates Next Due Tdap (Adacel,Boostrix) 05/15/2008 Family History Medical History Relation Comments Cancer Maternal Grandfather Lung Cancer Autoimmune Disease Maternal Grandmother Autoimmune hepatiti s Autoimmune Disease Mother autoimmune hep C.A.D. Mother Liver Disease Mother Lupus Mother C.A.D. Paternal Grandfather Diabetes Paternal Grandfather Diabetes Paternal Grandmother Liver Disease Paternal Grandmother Cancer Sister 4 Uterine Cancer Relation Status Comments Daughter Alive Father Maternal Grandfather Maternal Grandmother Mother Alive Paternal Grandfather Paternal Grandmother Sister 1 Alive Sister 2 Alive Sister 3 Alive Sister 4 Social History Tobacco Use Types Packs/Day Years Used Date Smoking Tobacco: Never Smokeless Tobacco: Never Alcohol Use Standard Drinks/Week Comments No 0 (1 standard drink = 0.6 oz pure alcoho l) Sex Assigned at Date Recorded Not on file Last Filed Vital Signs Vital Sign Reading Time Taken Comments Blood Pressure 132/86 06/23/2014 1:43 PM EMBEDDED ENGINEER Pulse 100 06/23/2014 1:43 PM EMBEDDED ENGINEER Temperature 36.7 ??C (98 ??F) 06/23/2014 1:43 PM EMBEDDED ENGINEER Respiratory Rate 20 06/23/2014 1:43 PM EMBEDDED ENGINEER Oxygen Saturation 96% 06/23/2014 1:43 PM EMBEDDED ENGINEER Inhaled Oxygen Concentration - - Weight 115.8 kg (255 lb 5 oz) 06/23/2014 1:43 PM EMBEDDED ENGINEER Height 175.3 cm (5' 9) 06/20/2014 4:01 PM EMBEDDED ENGINEER Body Mass Index 37.7 06/20/2014 4:01 PM EMBEDDED ENGINEER Plan of Treatment Health Maintenance Due Date Last Done Comments ADVANCE CARE PLANNING 1975 ANNUAL REVIEW OF HM ORDERS 1975 EYE EXAM 1975 MICROALBUMIN 11/07/2013 11/07/2012 LIPID 07/26/2014 07/26/2013 A1C 07/29/2014 01/29/2014, 07/26/2013, 11/07/2012, Additional history exists DIABETIC FOOT EXAM 05/30/2015 05/30/2014 BMP 06/20/2015 06/20/2014, 01/10/2014, 01/09/2014, Additional history exists Pneumococcal Vaccine: 01/14/2021 01/15/2020 Pediatrics (0 to 5 Years) and At-Risk Patients (6 to 64 Years) (2 - PCV) YEARLY PREVENTIVE VISIT 01/14/2021 01/15/2020, 11/07/2012 PHQ-2 (once per calendar 05/15/2021 year) COVID-19 Vaccine (4 - 06/11/2021 04/16/2021, 09/21/2020, Booster for Moderna series) 08/24/2020 INFLUENZA VACCINE (#1) 2022 04/16/2021, 01/15/2020 DTAP/TDAP/TD IMMUNIZATION 07/23/2027 07/22/2017, 09/08/2008 , (4 - Td or Tdap) 09/08/2008, Additional history exists HEPATITIS C SCREENING Completed 11/07/2012 HIV SCREENING Completed 11/07/2012 HEPATITIS B IMMUNIZATION Completed 11/16/2020, 01/15/2020, 10/05/2016 IPV IMMUNIZATION Aged Out No longer eligi ble based on patient 's age to complete this topic MENINGITIS IMMUNIZATION Aged Out No longe r eligible based on patient 's age to complete this topic Additional Health Concerns Infection Onset Date Last Indicated MRSA-Contact IsolationComment: Skin 12-25-2012 01/02/2013 01/02/2013 Insurance Payer Benefit Plan / Subscriber ID Effective Dates Phone Addre ss Type Group [facility] [id number] 2021-Gloira [place] [id number] [address] [place] [id number] none (Work) [id number] Advance Directives For more information, please contact: [phone] Latest Code Status on File Code Status Date Activated Date Inactivated Comments Full Code 10/28/2012 8:54 AM Code Status History Code Status Date Activated Date Inactivated Comments Full Code 10/26/2012 5:12 AM 10/28/2012 8:54 AM Care Teams Supervisor Assembly And Packing Relationship Specialty Start Date End Date Christine Marr MD PCP - General Pediatrics 01/14/14
--- OUTSIDE RECORDS SUMMARY | 2022-04-14 09:13 | XMS_ITS | Encounter Summary ---
:1975 Author Organization [facility] Address [address] [place] [address]. [place] [address] Care Team Providers Name Role Phone Jensen Melendez MD Primary Care Provider [phone] Reason for Visit Reason Comments Cough Encounter Details Date Type Department Care Team Description 07/08/2013 Office Visit [facility] Prashanth Rios Influenza B (Primary Clifton Fuentes MD Dx) [facility] [employer] [place] [address] [facility] [phone] [place] [address] Social History Tobacco Use Types Packs/Day Years Used Date Smoking Tobacco: Never Smokeless Tobacco: Never Alcohol Use Standard Drinks/Week Comments No 0 (1 standard drink = 0.6 oz pure alcoho l) Sex Assigned at Date Recorded Not on file documented as of this encounter Last Filed Vital Signs Vital Sign Reading Time Taken Comments Blood Pressure 90/60 07/08/2013 9:55 AM EXTRUSION DIE CORRECTOR Pulse 88 07/08/2013 9:55 AM EXTRUSION DIE CORRECTOR Temperature 37.4 ??C (99.4 ??F) 07/08/2013 9:55 AM EXTRUSION DIE CORRECTOR Respiratory Rate 16 07/08/2013 9:55 AM EXTRUSION DIE CORRECTOR Oxygen Saturation - - Inhaled Oxygen Concentration - - Weight 119 kg (262 lb 4.8 oz) 07/08/2013 9:55 AM EXTRUSION DIE CORRECTOR Height 175.3 cm (5' 9) 07/08/2013 9:55 AM EXTRUSION DIE CORRECTOR Body Mass Index 38.73 07/08/2013 9:55 AM EXTRUSION DIE CORRECTOR documented in this encounter Progress Notes Prashanth Rios MD - 07/08/2013 9:37 AM CST SUBJECTIVE: Kaiden Reyna is a 38 year old male who presents to clinic today for the following health issues: RESPIRATORY SYMPTOMS ?? Duration: this past Sat night ?? Description nasal congestion, rhinorrhea, sore throat, cough, fever, ear pain bilateral and myalgias ?? Severity: moderate ?? Accompanying signs and symptoms: None ?? History (predisposing factors): Daughter and nieces with similar sx ?? Nieces recently tested positive for Influenza ?? Precipitating or alleviating factors: None ?? Therapies tried and outcome: Delsym Problem list and histories reviewed & adjusted, as indicated. Additional history: as documented Patient Active Problem List Diagnosis ??? CARDIOVASCULAR SCREENING; LDL GOAL LESS THAN 100 ??? Hyperthyroidism ??? Diabetes mellitus, type 2 History reviewed. No pertinent past surgical history. History Substance Use Topics ??? Smoking status: [...] C.A.D. Paternal Grandfather ??? Diabetes Paternal Grandmother OBJECTIVE: BP 90/60 Pulse 88 Temp 99.4 ??F (37.4 ??C) (Oral) Resp 16 Ht 5' 9 (1.753 m) Wt 262 lb 4.8oz (118.978 kg) BMI 38.72 kg/m2 Body mass index is 38.72 kg/(m^2). GENERAL: healthy, alert, well nourished, well hydrated, no distress HENT: ear canals- normal; TMs- normal; Nose- normal; Mouth- no ulcers, no lesions NECK: no tenderness, no adenopathy RESP: lungs clear to auscultation - no rales, no rhonchi, no wheezes CV: regular rates and rhythm, normal S1 S2 Results for orders placed in visit on 07/08/13 INFLUENZA A/B ANTIGEN Component Value Range Influenza A/B Agn Specimen Nasal Influenza A Negative NEG Influenza B Positive (*) NEG ASSESSMENT/PLAN: 1. Influenza B (487.1) Dx discussed. rec rest, fluids. Note for next few days off work Prashanth Rios MD, [facility] USION DIE CORRECTOR documented in this encounter Nursing Notes 07/08/2013 9:45 AM CST >> Dayna Turner CMA MonJul 08, 2013 10:00 AM Patient presents with: Cough Initial BP 90/60 Pulse 88 Temp 99.4 ??F (37.4 ??C) (Oral) Resp 16 Ht 5' 9 (1.753 m) Wt 262 lb 4.8 oz (118.978 kg) BMI 38.72 kg/m2 Estimated Body mass index is 38.72 kg/(m^2) as calculated from the following: Height as of this encounter: 5' 9(1.753 m). Weight as of this encounter: 262 lb 4.8 oz(118.978 kg). BP completed using cuff size: large Dayna Tunrer CMA(AAMA) documented in this encounter Plan of Treatment Not on filedocumented as of this encounter Procedures Procedure Name Priority Date/Time Associated Diagnosis Comme nts INFLUENZA A/B Routine 07/08/2013 10:21 AM Results for this ANTIGEN EXTRUSION DIE CORRECTOR procedure are i n the results section. documented in this encounter Results (ABNORMAL) Influenza A/B antigen (07/08/2013 10:21 AM EXTRUSION DIE CORRECTOR) [facility] Method Time Signature Influenza A/B Nasal W[facility] [employer] Agn Specimen [facility] [place] Influenza A Negative NEG [facility] Influenza B Positive (A) NEG [facility] Specimen (Source) Anatomical Collection Method Collection Time Re ceived Time Location / / Volume Laterality Specimen from 07/08/2013 10:21 07/08/2013 nasopharyngeal AM EXTRUSION DIE CORRECTOR 10:26 AM EXTRUSION DIE CORRECTOR structure (specimen) Prashanth Rios MD LAB - MICRO GENERAL ORDERABL ES Performing Organization Address City/State/ZIP Code Phon e Number [facility] [address] [place] [address] documented in this encounter Visit Diagnoses Diagnosis Influenza B - Primary Influenza with other respiratory manifes tations documented in this encounter Additional Health Concerns Infection Onset Date Last Indicated Resolved Time MRSA-Contact IsolationComment: Skin 12-25-2012 01/02/2013 documented as of this encounter Care Teams Engineer Booster And Exhauster Relationship Specialty Start Date End Date Jensen Melendez PCP - General Student in organized 10/31/12 01/13/14 [address] [address] education/[place] [address] documented as of this encounter
--- OUTSIDE RECORDS SUMMARY | 2022-04-14 09:13 | XMS_ITS | Encounter Summary ---
:1975 Author Organization [facility] Address [address] [place] [address]. [place] [address] Care Team Providers Name Role Phone Jensen Melendez MD Primary Care Provider Reason for Visit Reason Onset Date Comments Panel Management 09/27/2013 Encounter Details Date Type Department Care Team Description 09/27/2013 Telephone [facility] Eag Jensen Melendez Panel Management [address] [facility] [place] [address] [address] [facility] [phone] [address] [place] [address] (Wo rk) Social History Tobacco Use Types Packs/Day Years Used Date Smoking Tobacco: Never Smokeless Tobacco: Never Alcohol Use Standard Drinks/Week Comments No 0 (1 standard drink = 0.6 oz pure alcoho l) Sex Assigned at Date Recorded Not on file documented as of this encounter Miscellaneous Notes Telephone Encounter - Annabelle Allison I, [facility] - 09/27/2013 4:05 PM CDT Panel Management Review Date of last visit with a [facility] provider: Hui on 09/10/2013. Date of next visit with a [facility] provider: None. Problem List Patient Active Problem List Diagnosis ??? CARDIOVASCULAR SCREENING; LDL GOAL LESS THAN 100 ??? Hyperthyroidism ? ? Diabetes mellitus, type 2; BP Goal <140/90 ??? MRSA cellulitis Health Maintenance List Health Maintenance Topic Date Due ??? FOOT EXAM Q1 YEAR( NO INBASKET) 1978 ??? EYE EXAM Q1 YEAR( NO INBASKET) 1978 ??? MICROALBUMIN Q1 YEAR( NO INBASKET) 11/07/2013 ??? A1C Q6 MO( NO INBASKET) 01/26/2014 ??? INFLUENZA VACCINE (SYSTEM ASSIGNED) 02/12/2014 ??? LIPID MONITORING Q1 YEAR( NO INBASKET) 07/26/2014 ??? CREATININE Q1 YEAR (NO INBASKET) 08/06/2014 ??? TSH W/ FREE T4 REFLEX Q2 YEAR (NO INBASKET) 11/07/2014 ??? TETANUS IMMUNIZATION (SYSTEM ASSIGNED) 05/15/2018 Tobacco History History Smoking status ??? Never Smoker Smokeless tobacco ??? Never Used Summary: Patient is due/failing the following: See HM Action needed: Patient needs office visit for none, pt was just seen . Type of outreach: none at this time Questions for provider review: None Please indicate office visit, lab, MTM, or nurse appt if needed. Indicate fasting or not fasting. Annabelle Allison MA documented in this encounter Plan of Treatment Not on filedocumented as of this encounter Visit Diagnoses Not on filedocumented in this encounter Additional Health Concerns Infection Onset Date Last Indicated Resolved Time MRSA-Contact IsolationComment: Skin 12-25-2012 01/02/2013 documented as of this encounter Care Teams Entry Tech Relationship Specialty Start Date End Date Jensen Melendez, NATALY - General Student in [employer] 10/31/12 01/13/14 [place] [address] education/[place] [address] documented as of this encounter
--- OUTSIDE RECORDS SUMMARY | 2022-04-14 09:13 | XMS_ITS | Encounter Summary ---
:1975 Author Organization [facility] Address [address] [place] [place] [address] Care Team Providers Name Role Phone Jensen Melendez MD Primary Care Provider [phone] Reason for Visit (Routine) - Closed Specialty Diagnoses / Procedures Referred By Contact Refer red To Contact Radiology / Radiology. Diagnoses Non Epic; sb Julia Rh Nuclear Medicine Procedures NM GASTRIC EMPTYING [address] [place] [address] Phone: Fax: Referral ID Status Reason Start Date Expiration Date Visits Requ ested Visits Authorized [id number] Closed 10/23/2013 10/23/2014 1 1 Encounter Details Date Type Department Care Team Description 11/05/2013 Hospital Encounter [facility] Sandra Meier ea; [facility] Drew Ryees, Vomiting; [address] MD Family history of cancer [facility] [address] GASTROENTEROLOG [phone] [place] [address] Social History Tobacco Use Types Packs/Day Years Used Date Smoking Tobacco: Never Smokeless Tobacco: Never Alcohol Use Standard Drinks/Week Comments No 0 (1 standard drink = 0.6 oz pure alcoho l) Sex Assigned at Date Recorded Not on file documented as of this encounter Medications at Time of Discharge Medication Sig Dispensed Refills Start Date End Date chlorhexidine Apply 5 mLs topically 250 mL 0 09/10/2013 01/29/2014 (HIBICLENS) 4 % daily as needed for external wound care Put 1 liquidIndications: capful, approximately Cellulitis 5 ml of chlorhexidine into bath each bath for 10 days. metoclopramide (REGLAN) Take 1 tablet (10 mg) 360 tablet 1 0 10/08/2013 01/29/2014 10 MG by mouth 4 times tabletIndications: daily (before meals Diabetes mellitus, type and nightly) [take 2 (H), Other and for 2-8 weeks. ] unspecified noninfectious gastroenteritis and colitis(558.9), Nausea with vomiting sucralfate (CARAFATE) 1 Take 10 mLs (1 g) by 420 mL 1 01/29/2014 GM/10ML mouth 4 times daily suspensionIndications: Nausea with vomiting, Gastroparesis, Other and unspecified noninfectious gastroenteritis and colitis(558.9), Diabetes mellitus, type 2 (H) traMADol (ULTRAM) 50 MG Take 1-2 tablets 20 tablet 0 201301/10/2014 tabletIndications: (50-100 mg) by mouth Cellulitis every 6 hours as needed for moderate pain Do not take and drive documented as of this encounter Plan of Treatment Not on filedocumented as of this encounter Procedures Procedure Name Priority Date/Time Associated Diagnosis Comme [facility] GASTRIC EMPTYING Routine 11/05/2013 10:01 AM Nausea Results for this CDT Vomiting procedure are in Family history of the result s cancer section. documented in this encounter Results NM Gastric Emptying (11/05/2013 10:01 AM CDT) Anatomical Region Laterality Modality Abdomen/Pelvis Nuclear Medicine Specimen (Source) Anatomical Location Collection Method / Collectio n Time Received Time / Laterality Volume Impressions 11/05/2013 11:25 AM CDT IMPRESSION: Some early retention in the stomach, however overall this is normal gastric emptying. GRADY DUONG MD Narrative 11/05/2013 11:25 AM CDT NUCLEAR MEDICINE GASTRIC EMPTYING 11/05/2013 10:01 AM HISTORY: Nausea alone. COMPARISON: None. TECHNIQUE: Patient was given Tc99M label ed sulfur colloid in food followed by immediate, one hour, two any r, three hour and four hour static images over the stomach. DOSE: 2.0 mCi 99mTc-Sulfur Colloid in eg g meal. FINDINGS: The amount of retained activit y within the stomach is as follows- One hour: 99% (Normal 30-90%) Two hour: 6% (Normal <60%) Three hour: Less than 6% (Normal <30%) Four hour: Less than 6% (Normal <10%) Procedure Note Grady Duong MD - 11/05/2013Fo rmatting of this note might be different from the original. NUCLEAR MEDICINE GASTRIC EMPTYING 014 10:01 AM HISTORY: Nausea alone. COMPARISON: None. TECHNIQUE: Patient was given Tc99M label ed sulfur colloid in food followed by immediate, one hour, two any r, three hour and four hour static images over the stomach. DOSE: 2.0 mCi 99mTc-Sulfur Colloid in eg g meal. FINDINGS: The amount of retained activit y within the stomach is as follows- One hour: 99% (Normal 30-90%) Two hour: 6% (Normal <60%) Three hour: Less than 6% (Normal <30%) Four hour: Less than 6% (Normal <10%) IMPRESSION IMPRESSION: Some early retention in the stomach, however overall this is normal gastric emptying. GRAYD DUONG MD Drew Meier MD IMG NM ORDERABLES documented in this encounter Visit Diagnoses Diagnosis Nausea Nausea alone Vomiting Vomiting alone Family history of cancer Family history of unspecified malignant neoplasm documented in this encounter Administered Medications Inactive Administered Medications - up to 3 most recent administrations Medication Order MAR Action Action Date Dose Rate Site technetium sulfur colloid Given 11/05/2013 7:45 AM CDT 2 millicu jenn radioisotope oral solution 1 varun Curie 1 millicurie, Oral, ONCE, On Mon11/05/13 at 0745, For 1 dose documented in this encounter Additional Health Concerns Infection Onset Date Last Indicated Resolved Time MRSA-Contact IsolationComment: Skin 12-25-2012 01/02/2013 documented as of this encounter Care Teams Crystallographer Relationship Specialty Start Date End Date Jensen Melendez, NATALY - General Student in organized 10/31/12 01/13/14 [place] [address] education/[place] [address] documented as of this encounter
--- OUTSIDE RECORDS SUMMARY | 2022-04-14 09:13 | XMS_ITS | Encounter Summary ---
:1975 Author Organization [facility] Address [address] [place] [address]. [place] [address] Care Team Providers Name Role Phone Jensen Melendez MD Primary Care Provider [phone] Reason for Visit Reason Comments Pharyngitis Encounter Details Date Type Department Care Team Description 07/16/2013 Office Visit [facility] Jaylyn Jones Acute pharyngitis Clifton Chavez PA-C (Primary Dx) [address] [employer] [address] [place] [address] [facility] [phone] [place] [address] Social History Tobacco Use Types Packs/Day Years Used Date Smoking Tobacco: Never Smokeless Tobacco: Never Alcohol Use Standard Drinks/Week Comments No 0 (1 standard drink = 0.6 oz pure alcoho l) Sex Assigned at Date Recorded Not on file documented as of this encounter Last Filed Vital Signs Vital Sign Reading Time Taken Comments Blood Pressure 114/70 07/16/2013 2:55 PM FINAL DRESSING CUTTER Pulse 80 07/16/2013 2:55 PM FINAL DRESSING CUTTER Temperature 36.9 ??C (98.5 ??F) 07/16/2013 2:55 PM FINAL DRESSING CUTTER Respiratory Rate - - Oxygen Saturation - - Inhaled Oxygen Concentration - - Weight 119 kg (262 lb 4.8 oz) 07/16/2013 2:55 PM FINAL DRESSING CUTTER Height 175.3 cm (5' 9) 07/16/2013 2:55 PM FINAL DRESSING CUTTER Body Mass Index 38.73 07/16/2013 2:55 PM FINAL DRESSING CUTTER documented in this encounter Patient Instructions Patient InstructionsGoShannon fonsecasha Kathy, PA-C - 07/16/2013 3:27 PM FINAL DRESSING CUTTER Rapid strep test is negative. Throat culture is pending. Continue to check temperatures three times daily. Continue with rest and fluids. May use ibuprofen or salt water rinses for symptomatic relief. Do not share drinks/food with others. Return to clinic if symptoms persist or worsen. L DRESSING CUTTER documented in this encounter Progress Notes Jaylyn Jones PA-C - 07/16/2013 2:57 PM CST SUBJECTIVE: Kaiden Reyna is a 38 year old male who presents to clinic today for the following health issues: Acute Illness Acute illness concerns?- ST Onset: 3 days ago ?? Fever: no ?? Chills/Sweats: no ?? Headache (location?): no ?? Sinus Pressure:no ?? Conjunctivitis: no ?? Ear Pain: YES: right ?? Rhinorrhea: no ?? Congestion: YES ?? Sore Throat: YES with dysphagia ?? Cough: YES ?? Wheeze: no ?? Decreased Appetite: no ?? Nausea: no ?? Vomiting: no ?? Diarrhea: no ?? Dysuria/Freq: no ?? Fatigue/Achiness: YES ?? Sick/Strep Exposure: YES Therapies Tried and outcome: nothing Problem list, Medication list, Allergies, and Medical/Social/Surgical histories reviewed in [facility] andupdated as appropriate. ROS: ROS otherwise negative OBJECTIVE: BP 114/70 Pulse 80 Temp 98.5 ??F (36.9 ??C) (Oral) Ht 5' 9 (1.753 m) Wt 262 lb 4.8 oz (118.978 kg) BMI 38.72 kg/m2 Body mass index is 38.72 kg/(m^2). GENERAL: alert, no distress HENT: ear canals- normal; TMs- normal; Nose- normal; Mouth- no ulcers, no lesions; no sinus tenderness NECK: no tenderness, no adenopathy RESP: lungs clear to auscultation - no rales, no rhonchi, no wheezes CV: regular rates and rhythm, normal S1 S2, no S3 or S4 and no murmur, no click or rub - SKIN: no suspicious lesions, no rashes Diagnostic test results: Results for orders placed in visit on 07/16/13 (from the past 24 hour(s)) RAPID STREP SCREEN Component Value Range Specimen Description Throat Rapid Strep A Screen Value: NEGATIVE: No Group A streptococcal antigen detected by immunoassay, await culture report. Micro Report Status FINAL 07/16/2013 ASSESSMENT/PLAN: 462 Acute pharyngitis (primary encounter diagnosis) Comment: TC pending. RTC if symptoms persist. Plan: Strep, Rapid Screen, Beta strep group A culture See Patient Instructions Jaylyn Jones PA-C [facility] L DRESSING CUTTER documented in this encounter Nursing Notes 07/16/2013 3:00 PM CST >> BRICE Roche Jul 16, 2013 3:04 PM Patient presents with: Pharyngitis Initial BP 114/70 Pulse 80 Temp 98.5 ??F (36.9 ??C) (Oral) Ht 5' 9 (1.753 m) Wt 262 lb 4.8 oz (118.978 kg) BMI 38.72 kg/m2 Estimated Body mass index is 38.72 kg/(m^2) as calculated from the following: Height as of this encounter: 5' 9(1.753 m). Weight as of this encounter: 262 lb 4.8 oz(118.978 kg). BP completed using cuff size: X-large Mariel Kinney MA documented in this encounter Plan of Treatment Not on filedocumented as of this encounter Procedures Procedure Name Priority Date/Time Associated Diagnosis Comme nts RAPID STREP SCREEN Routine 07/16/2013 3:11 PM Acute pharyngiti s Results for this THROAT SWAB FINAL DRESSING CUTTER procedure are i n the results section. BETA HEMOLYTIC Routine 07/16/2013 3:11 PM Acute pharyngitis Re sults for this STREP GROUP A FINAL DRESSING CUTTER procedure are in CULTURE the results section. documented in this encounter Results Beta strep group A culture (07/16/2013 3:11 PM FINAL DRESSING CUTTER) Component Value Ref Test Analysis Performed At [facility] gist Range Method Time Signature Specimen Throat [facility] [place] Culture Micro No Beta [facility] Streptococcus CLINICS isolated [place] Micro Report FINAL 07/18/2013 [facility] Status [facility] [place] Specimen Anatomical Collection Method Collection Time Receive d Time (Source) Location / / Volume Laterality Specimen from 07/16/2013 3:11 PM 07/17/19 14 3:16 throat FINAL DRESSING CUTTER PM FINAL DRESSING CUTTER (specimen) Jaylyn Jones PA-C LAB - MICRO GENERAL ORD ERABLES Performing Organization Address City/[facility] Phon e Number [facility] [address] [place] [phone] Strep, Rapid Screen (07/16/2013 3:11 PM FINAL DRESSING CUTTER) Component Value Ref Test Analysis Performed At [facility] Range Method Time Signature Specimen Throat [facility] [place] Rapid Strep A NEGATIVE: No Group A strepto coccal antigen detected by immunoassay, await [facility] Screen culture report. [facility] [place] Micro Report FINAL 07/16/2013 [facility] Status [facility] [place] Specimen Anatomical Collection Method Collection Time Receive d Time (Source) Location / / Volume Laterality Specimen from 07/16/2013 3:11 PM 07/17/19 14 3:16 throat FINAL DRESSING CUTTER PM FINAL DRESSING CUTTER (specimen) Jaylyn Jones PA-C LAB - MICRO GENERAL [employer] ERABLES Performing Organization Address City/[facility] Phon e Number [address] [address] [phone] documented in this encounter Visit Diagnoses Diagnosis Acute pharyngitis - Primary documented in this encounter Additional Health Concerns Infection Onset Date Last Indicated Resolved Time MRSA-Contact IsolationComment: Skin 12-25-2012 01/02/2013 documented as of this encounter Care Teams Partition Assembly Machine Operator Relationship Specialty Start Date End Date Jensen Melendez PCP - General Student in organized 10/31/12 01/13/14 [place] [address] education/[place] [address] documented as of this encounter
--- OUTSIDE RECORDS SUMMARY | 2022-04-14 09:13 | XMS_ITS | Encounter Summary ---
:1975 Author Organization [facility] Address [address] [place] [address]. [place] [address] Care Team Providers Name Role Phone Jensen Melendez MD Primary Care Provider [phone] Reason for Visit Reason Onset Date Comments Patient Request for Note/Letter 07/29/2013 Work exc use letter Encounter Details Date Type Department Care Team Description 07/29/2013 Telephone [facility] Eag an Jensen Melendez Patient Request for 14[address] [employer] MD Stan Note/Letter (Work [place] [address] [place] [address] excuse letter) [phone] [address] [place], [place] [address] (Wo rk) Social History Tobacco Use Types Packs/Day Years Used Date Smoking Tobacco: Never Smokeless Tobacco: Never Alcohol Use Standard Drinks/Week Comments No 0 (1 standard drink = 0.6 oz pure alcoho l) Sex Assigned at Date Recorded Not on file documented as of this encounter Miscellaneous Notes Telephone Encounter - Alice Dye RN - 07/29/2013 8:44 AM CDT Pt was seen in the clinic on 07/26 by for PUD. Gave a note to be excused from work tomorrow(07/30) because of pt is getting a procedure. But because of the increased pain & vomiting, pt isn't able to go to work today either. He would like to add today's date on the letter as well. Need to leave the letter with FD & notify pt at [phone]. Printed the letter & got the signature from MD. Left with FD & notified pt. CASA Jenkins Message handled by Nurse Triage. documented in this encounter Plan of Treatment Not on filedocumented as of this encounter Visit Diagnoses Not on filedocumented in this encounter Additional Health Concerns Infection Onset Date Last Indicated Resolved Time MRSA-Contact IsolationComment: Skin 12-25-2012 01/02/2013 documented as of this encounter Care Teams Online Communications Manager Relationship Specialty Start Date End Date Jensen Melendez, PCP - General Student in organized 10/31/12 01/13/14 [place] [address] education/[place] [address] documented as of this encounter
--- OUTSIDE RECORDS SUMMARY | 2022-04-14 09:13 | XMS_ITS | Encounter Summary ---
:1975 Author Organization [facility] Address [address] [place] [address]. [place] [address] Care Team Providers Name Role Phone Jensen Melendez MD Primary Care Provider [phone] Reason for Visit Reason Comments Throat Problem Ear Problem Encounter Details Date Type Department Care Team Description 11/18/2013 Office Visit [facility] Gifty Turner MD ERRONEOUS [facility] ENCOUNTER--DISREGARD [address] [place] [address] (Primary Dx) [place] [address] [address] [place], [place] [address] (Wo rk) Social History Tobacco Use Types Packs/Day Years Used Date Smoking Tobacco: Never Smokeless Tobacco: Never Alcohol Use Standard Drinks/Week Comments No 0 (1 standard drink = 0.6 oz pure alcoho l) Sex Assigned at Date Recorded Not on file documented as of this encounter Progress Notes Gifty Turner MD - 11/18/2013 8:18 AM CDT No show documented in this encounter Plan of Treatment Not on filedocumented as of this encounter Visit Diagnoses Diagnosis ERRONEOUS ENCOUNTER--DISREGARD - Primary documented in this encounter Additional Health Concerns Infection Onset Date Last Indicated Resolved Time MRSA-Contact IsolationComment: Skin 12-25-2012 01/02/2013 documented as of this encounter Care Teams Electrical Drafter Relationship Specialty Start Date End Date Jensen Melendez, PCP - General Student in organized 10/31/12 01/13/14 [place] [address] education/training program [place], [place] [id number] documented as of this encounter
--- OUTSIDE RECORDS SUMMARY | 2022-04-14 09:13 | XMS_ITS | Encounter Summary ---
:1975 Author Organization [facility] Address [address] [place] [address]. [place] [address] Care Team Providers Name Role Phone Jensen Melendez MD Primary Care Provider [phone] Reason for Referral Diagnostic Procedure Outpatient - Closed Specialty Diagnoses / Procedures Referred By Contact Refer red To Contact Diagnoses PUD (peptic ulcer disease) Esophageal reflux Upper abdominal pain Karel Carbajal MD [address] [place] [address] [place] [address] Phone: Fax: Referral ID Status Reason Start Date Expiration Date Visits Requ ested Visits Authorized [id number] Closed 07/26/2013 01/22/2014 1 1 Reason for Visit Reason Comments Abdominal Pain upper abd pain with emesis Encounter Details Date Type Department Care Team Description 07/26/2013 Office Visit [facility] Karel Carbajal, Upper abdominal pain (Primary Dx); [place] RAMIREZ PUD (peptic ulcer disease); [address] Esophageal reflux; [place] [address] [facility] Diabetes mellitus, type 2 (H); [phone] [place] [address] DM (diabetes mellitus) (H); [phone] Nausea; (Work) Increased nausea and vomiting Social History Tobacco Use Types Packs/Day Years Used Date Smoking Tobacco: Never Smokeless Tobacco: Never Alcohol Use Standard Drinks/Week Comments No 0 (1 standard drink = 0.6 oz pure alcoho l) Sex Assigned at Date Recorded Not on file documented as of this encounter Last Filed Vital Signs Vital Sign Reading Time Taken Comments Blood Pressure 118/88 07/26/2013 12:19 PM CDT Pulse 76 07/26/2013 12:19 PM CDT Temperature 36.8 ??C (98.3 ??F) 07/26/2013 12:19 PM CDT Respiratory Rate 20 07/26/2013 12:19 PM CDT Oxygen Saturation - - Inhaled Oxygen Concentration - - Weight 115.9 kg (255 lb 8 oz) 07/26/2013 12:19 PM CDT Height 175.3 cm (5' 9) 07/26/2013 12:19 PM CDT Body Mass Index 37.73 07/26/2013 12:19 PM CDT documented in this encounter Patient Instructions Patient InstructionsNoKarel cunningham MD - 07/26/2013 1:23 PM CDT Images from the original note were not included. Heartburn/GERD What is heartburn? Heartburn refers to the symptoms you feel when acids in your stomach flow back into the esophagus. (The esophagus is the tube that carries food from your throat to your stomach.) This backward movementof stomach acid is called reflux. The acid can burn and irritate the esophagus, throat, and vocal cords. Heartburn is a common problem. Despite its name, it has nothing to do with the heart. When you have heartburn often, you may have a condition called gastroesophageal reflux disease, or GERD. How does it occur? At the bottom of the esophagus there is a ring of muscle called a sphincter. It acts like a valve. When you swallow food, the sphincter opens to let the food pass into the stomach. The ring then closesto keep the stomach contents from going back into the esophagus. If the sphincter is weak or too relaxed, stomach acid and food flow backward into the esophagus. Because the esophagus does not have theprotective lining that the stomach has, the acid causes pain. The sphincter muscle sometimes does not work properly if: You are overweight. You are . You have a hiatal hernia (a condition in which part of the stomach protrudes through the diaphragm into the chest). You eat too much. You lie down soon after eating. You wear tight clothes that push on your stomach. Foods that may make heartburn worse are: foods high in fat sugar chocolate peppermint onions citrus foods such as orange juice tomato-based foods spicy foods coffee and other drinks with caffeine, such as tea and erica alcohol. Heartburn can also be made worse by: taking certain medicines, such as aspirin smoking cigarettes. Anyone can have an attack of heartburn from overeating or eating foods that are high in acid. Most of the time heartburn is mild and lasts for a short time. There is usually not a problem when heartburn occurs just once in a while. You should see your healthcare provider if: You have heartburn nearly every day for 2 weeks. The heartburn comes back when the antacid wears off. Heartburn wakes you up at night. What are the symptoms? The main symptom of heartburn is a burning pain in the lower chest, usually close to the bottom of the breastbone. Other symptoms you may have are: acid or sour taste in your mouth belching a feeling of bloating or fullness in the stomach. These symptoms tend to happen after very large meals and especially with activity such as bending orlifting after meals. The symptoms may be made worse by lying down or by wearing tight clothing. Heartburn is very common during the last few months of . The weight of the baby pushes on the stomach and can cause the sphincter to relax and let acid to flow back into the esophagus. How is it diagnosed? Usually heartburn can be diagnosed from your medical history. If there is any question about the diagnosis, you may have the following tests to check for ulcers or other problems that might cause your symptoms: barium swallow X-ray study of the esophagus complete upper GI (gastrointestinal) barium X-ray study of the esophagus, stomach, and upper intestine endoscopy, a procedure in which a thin flexible tube with a tiny camera is placed in your mouth and down into your stomach so your provider can see your esophagus and stomach. How is it treated? To help reduce the symptoms of heartburn you can: Try not to put a lot of pressure on the sphincter muscle. Eating light meals and wearing loose clothing will help. Lose weight if you are overweight. Take nonprescription antacids (tablets or liquid) after meals and at bedtime. Raise the head of your bed or use more than one pillow so your head is higher than your stomach. This may allow gravity to help keep food from backing up. If you find that certain foods or drinks seem to cause your symptoms or make them worse, avoid thosefoods. If the simple measures described above do not relieve the symptoms, your healthcare provider may prescribe medicine. The prescription medicines help reduce stomach acid. They also help stomach emptying. A very few people who are not helped with medicines may need surgery. Get emergency care if the following symptoms occur with the heartburn and do not go away within 15 minutes of treatment for heartburn: shortness of breath; sweating; light-headedness, weakness; or jaw,arm, back, or chest pain. How long will the effects last? Heartburn symptoms are usually relieved by treatment in just a few hours or less. If you are having heartburn every day, starting treatment will usually relieve the symptoms in a few days. However, thesymptoms may come back from time to time, especially if you gain weight. Heartburn can sometimes make asthma worse. If you have asthma, preventing or controlling heartburn may help control your asthma symptoms. How can I help prevent heartburn? The best prevention is to: Keep a healthy weight. Lose weight if you are overweight. Sleep with your head elevated at least 4 to 6 inches. (It's usually most comfortable to put the headof your bed on blocks.) It may also help if you: Wait an hour or longer after eating before you lie down. If you have to lie down after a meal, lie on your left side. Keep your head and shoulders slightly higher than the rest of your body. It's best to not eat for 2 to 3 hours before you go to bed. Eat smaller, more frequent meals. Avoid wearing tight clothing or belts. Don't smoke. Smoking relaxes the sphincter leading to your stomach. Avoid foods and other things that seem to cause heartburn or make it worse. Developed by [employer]. Published by [employer]. Last modified: 2008-05-28 Last reviewed: 2008-04-15 documented in this encounter Progress Notes Karel Carbajal MD - 07/26/2013 9:16 AM CDT SUBJECTIVE: Kaiden Reyna is a 38 year old male who presents to clinic today for the following health issues: Abdominal Pain/ upset stomack ?? Duration: > 2 weeks, had the flu last week too and that is better, no more fevers ?? Description (location/character/radiation): nruing, belching and dyspepsia with pain at times Associated flank pain: None ?? Intensity: moderate ?? Accompanying signs and symptoms: Fever/Chills: no Gas/Bloating: YES Nausea/vomitting: YES Diarrhea: no Dysuria or Hematuria: no ?? History (previous similar pain/trauma/previous testing): yes - has history of PUD ?? Precipitating or alleviating factors: Pain worse with eating/BM/urination: no Pain relieved by BM: no ?? Therapies tried and outcome: None ?? LMP: not applicable upper abdominal discomfort, has history of pud and was supposed to have EGD done yesterday but this had to be postponed due to flu illness. needs this done yfn as symptoms are getting worse, here today to facilitate scheduling of this. He has been able to keep fluids down, not eating much through. did go to work today and able to do all activites of daily living. no hematemesis or dark/lack stools. having normal bms and passing gas. Problem list and histories reviewed & adjusted, as indicated. Additional history: as documented Patient Active Problem List Diagnosis Date Noted ??? CARDIOVASCULAR SCREENING; LDL GOAL LESS THAN 100 11/07/2012 ??? Hyperthyroidism 11/07/2012 ??? Diabetes mellitus, type 2 11/07/2012 History Substance Use Topics ??? Smoking status: [...] C.A.D. Paternal Grandfather ??? Diabetes Paternal Grandmother ROS: A complete 10 point review of systems was taken and negative except for those noted in the subjective/HPI section(s) above Problem list, Medication list, Allergies, and Medical/Social/Surgical histories reviewed in [facility] andupdated as appropriate. OBJECTIVE: BP 118/88 Pulse 76 Temp 98.3 ??F (36.8 ??C) (Oral) Resp 20 Ht 5' 9 (1.753 m) Wt 255 lb 8 oz (115.894 kg) BMI 37.71 kg/m2 Constitutional: healthy, alert and no distress HEENT: normocephalic and atrumatic, mucous membranes moist, op clear, mucous membranes moist, neck supple Cardiovascular: regular rate and rhythm no rubs, gallops or murmurs normal S1/S2; no S3 or S4 Respiratory: clear to auscultation bilaterally in all lung white, normal insp/exp effort. Good air movement Gastrointestinal: Abdomen soft, + mild pain with palpation of upper quadrants. BS normal. No masses,organomegaly; no rebound or guarding Musculoskeletal: extremities normal- no gross deformities noted, gait normal and normal muscle tone Skin: no suspicious lesions or rashes Neurologic: Gait normal. Reflexes normal and symmetric. Sensation grossly WNL. Psychiatric: mentation appears normal and affect normal/bright Results for orders placed in visit on 07/26/13 HEMOGLOBIN A1C Component Value Range Hemoglobin A1C 6.9 (*) 4.3 - 6.0 % LIPID PROFILE Component Value Range Cholesterol 158 <200 mg/dL Triglycerides 88 0 - 150 mg/dL HDL Cholesterol 33 (*) >40 mg/dL LDL Cholesterol Calculated 108 0 - 129 mg/dL VLDL-Cholesterol 18 0 - 30 mg/dL Cholesterol/HDL Ratio 4.9 0.0 - 5.0 CBC WITH PLATELETS DIFFERENTIAL Component Value Range WBC 6.7 4.0 - 11.0 10e9/L RBC Count 4.72 4.4 - 5.9 10e12/L Hemoglobin 14.2 13.3 - 17.7 g/dL Hematocrit 40.2 40.0 - 53.0 % MCV 85 78 - 100 fl MCH 30.1 26.5 - 33.0 pg MCHC 35.3 31.5 - 36.5 g/dL RDW 12.9 10.0 - 15.0 % Platelet Count 200 150 - 450 10e9/L Diff Method Automated Method % Neutrophils 70.9 % Lymphocytes 19.9 % Monocytes 7.9 % Eosinophils 1.2 % Basophils 0.1 Absolute Neutrophil 4.7 1.6 - 8.3 10e9/L Absolute Lymphocytes 1.3 0.8 - 5.3 10e9/L Absolute Monoctyes 0.5 0.0 - 1.3 10e9/L Absolute Eosinophils 0.1 0.0 - 0.7 10e9/L Absolute Basophils 0.0 0.0 - 0.2 10e9/L ASSESSMENT/PLAN: 1. PUD (peptic ulcer disease) (533.90) GASTROENTEROLOGY ADULT REFERRAL +/- PROCEDURE, CBC with platelets differential, Comprehensive metabolic panel, Lipase, ranitidine (ZANTAC) 150 MG tablet, pantoprazole (PROTONIX) 40 MG enteric coated tablet 2. Esophageal reflux (530.81) GASTROENTEROLOGY ADULT REFERRAL +/- PROCEDURE, CBC with platelets differential, Comprehensive metabolic panel, Lipase, ranitidine (ZANTAC) 150 MG tablet, pantoprazole (PROTONIX) 40 MG enteric coated tablet 3. Upper abdominal pain (789.09) GASTROENTEROLOGY ADULT REFERRAL +/- PROCEDURE, CBC with platelets differential, Comprehensive metabolic panel, Lipase, ranitidine (ZANTAC) 150 MG tablet, pantoprazole (PROTONIX) 40 MG enteric coated tablet 4. Diabetes mellitus, type 2 (250.00) Hemoglobin A1c 5. DM (diabetes mellitus) (250.00) Hemoglobin A1c, Lipid Profile (Chol, Trig, HDL, LDL calc) 6. Nausea (787.02) ondansetron (ZOFRAN) 4 MG tablet discussed with patient (or patient's parents/caregiver) pathophysiology of condition and treatment options. history consistant with bas dyspepsia and likely gastritis, +/1 randy recurrence of pud or duodenal ulcer. labs as ordered to evaluation for other causes (panvcreatitis, stone, etc). no hematemesis and patient is spoke with Dr. Lobo who is geographic information scientist for endoscopy at [facility], she agrees that okayfor patient to wait until earliest appointment for egd ton Monday. hiagrees with PPI, H2 altagracia, ondansetron, sips, brat diet, etc. reviewed indications for emergency room evaluation. Also d/w pt signs/symptoms of worsening of condition and need for urgent ED evaluation. Patient verbalized understanding and is agreeable to this plan. Estimated Body mass index is 38.72 kg/(m^2) as calculated from the following: Height as of 07/16/13: 5' 9(1.753 m). Weight as of 07/16/13: 262 lb 4.8 oz(118.978 kg). Return to clinic as needed or if symptoms persist, change, worsen or if any new symptoms develop. Karel Carbajal M.D. Internal Medicine-Pediatrics documented in this encounter Nursing Notes 07/26/2013 12:20 PM CDT >> Ladan Lester CMA MonJul 26, 2013 12:22 PM Patient presents with: Abdominal Pain - upper abd pain with emesis Initial BP 118/88 Pulse 76 Temp 98.3 ??F (36.8 ??C) (Oral) Resp 20 Ht 5' 9 (1.753 m) Wt 255 lb 8 oz (115.894 kg) BMI 37.71 kg/m2 Estimated Body mass index is 37.71 kg/(m^2) as calculated from the following: Height as of this encounter: 5' 9(1.753 m). Weight as of this encounter: 255 lb 8 oz(115.894 kg). BP completed using cuff size: large Lt arm Fidelia Martinez CMA,AAMA documented in this encounter Plan of Treatment Scheduled Referrals Name Type Priority Associated Diagnoses Order S [facility] GASTROENTEROLOGY ADULT Referral Routine PUD (peptic ulcer Ordered: 07/26/2013 REFERRAL +/- PROCEDURE disease) Esophageal reflu x Upper abdominal pain documented as of this encounter Procedures Procedure Name Priority Date/Time Associated Comments Diagnosis CBC WITH PLATELETS & Routine 07/26/2013 12:21 PUD (peptic ulce r Results for this DIFFERENTIAL PM CDT disease) procedure are in Esophageal reflu x the results Upper abdominal section. pain LIPID PROFILE Routine 07/26/2013 12:21 DM (diabetes Results fo r this PM CDT mellitus) (H) procedure are in the results section. LIPASE Routine 07/26/2013 12:21 PUD (peptic ulcer Result s for this PM CDT disease) procedure are in Esophageal reflu x the results Upper abdominal section. pain HEMOGLOBIN A1C Routine 07/26/2013 12:21 Diabetes mellitus, Res ults for this PM CDT type 2 (H) procedure are in DM (diabetes the results mellitus) (H) section. COMPREHENSIVE Routine 07/26/2013 12:21 PUD (peptic ulcer Resul ts for this METABOLIC PANEL PM CDT disease) procedure are in Esophageal reflu x the results Upper abdominal section. pain documented in this encounter Results Lipase (07/26/2013 12:21 PM CDT) athologist Signature Lipase 59 20 - 250 [facility] U/L [place] [facility] Specimen Anatomical Collection Method Collection Time Receive d Time (Source) Location / / Volume Laterality Blood specimen 07/26/2013 12:21 4 1:59 (specimen) PM CDT PM CDT Karel Carbajal MD LAB - BLOOD ORDERABLES Performing Organization Address City/State/ZIP Code Phon e Number [facility] [address] [place], [place] [id number] [place] [address] LABS (ABNORMAL) Comprehensive metabolic panel (07/26/2013 12:21 PM CDT) P athologist Signature Sodium 142 133 - 144 [facility] mmol/L [facility] Potassium 4.1 3.4 - 5.3 [facility] mmol/L [facility] Chloride 104 94 - 109 [facility] mmol/L [facility] Carbon Dioxide 22 20 - 32 [facility] mmol/L [facility] Anion Gap 16 6 - 17 [facility] mmol/L [facility] Glucose 113 (H) 60 - 99 [facility] mg/dL [facility] Urea Nitrogen 20 5 - 24 [facility] mg/dL [facility] Creatinine 0.95 0.66 - [facility] 1.25 mg/dL [facility] GFR Estimate 90 >60 [facility] mL/min/1.7 [facility] m2 GFR Estimate If >90 >60 [facility] Black mL/min/1.7 [facility] m2 Calcium 9.6 8.5 - 10.4 [facility] mg/dL [facility] Bilirubin Total 0.7 0.2 - 1.3 [facility] mg/dL [facility] Albumin 4.4 3.9 - 5.1 [facility] g/dL [facility] Comment: Reference range changed on 01/14. Protein Total 7.6 6.8 - 8.8 g/dL [facility] [place] Comment: As of 07, reference range reflects plasma specimen type. Alkaline Phosphatase 65 40 - 150 U/L [facility] [place] ALT 53 0 - 70 U/L [facility] EA ANTHONY AST 45 0 - 45 U/L [facility] Specimen Anatomical Collection Method Collection Time Receive d Time (Source) Location / / Volume Laterality Blood specimen 07/26/2013 12:21 4 1:59 (specimen) PM CDT PM CDT Karel Carbajal MD LAB - BLOOD ORDERABLES Performing Organization Address City/State/ZIP Code Phon e Number [facility] [place] [address] [place] [address] CBC with platelets differential (07/26/2013 12:21 PM CDT) [facility] gist Method Time Signature WBC 6.7 4.0 - [facility].0 [facility] 10[facility]9/L [place] RBC Count 4.72 4.4 - 5.9 [place] 10e12/L [facility] [place] Hemoglobin 14.2 13.3 - [place] 17.7 g/dL [facility] [place] Hematocrit 40.2 40.0 - [place] 53.0 % [facility] [place] MCV 85 78 - 100 [facility] [place] MCH 30.1 26.5 - [place] 33.0 pg [facility] [place] MCHC 35.3 31.5 - [place] 36.5 g/dL [facility] [place] RDW 12.9 10.0 - [place] 15.0 % [facility] [place] Platelet Count 200 150 - 450 [place] 10e9/L [facility] [place] Diff Method Automated [place] Method [facility] [place] % Neutrophils 70.9 % [facility] [place] % Lymphocytes 19.9 % [facility] [place] % Monocytes 7.9 % [facility] [place] % Eosinophils 1.2 % [facility] [place] % Basophils 0.1 % [facility] [place] Absolute 4.7 1.6 - 8.3 [place] Neutrophil 10e9/L [facility] Absolute 1.3 0.8 - 5.3 [place] Lymphocytes 10e9/L [facility] Absolute 0.5 0.0 - 1.3 [place] Monocytes 10e9/L [facility] Absolute 0.1 0.0 - 0.7 [place] Eosinophils 10e9/L [facility] [place] Absolute 0.0 0.0 - 0.2 [place] Basophils 10e9/L [facility] [place] Specimen Anatomical Collection Method Collection Time Receive d Time (Source) Location / / Volume Laterality Blood specimen 07/26/2013 12:21 4 1:59 (specimen) PM CDT PM CDT Karel Carbajal MD LAB - BLOOD ORDERABLES Performing Organization Address [facility]/ZIP Code Phon e Number [facility] [address] [place] [address] [phone] (ABNORMAL) Lipid Profile (Chol, Trig, HDL, LDL calc) (07/26/2013 12:21 PM CDT) athologist Signature Cholesterol 158 <200 mg/dL [facility] Comment: LDL Cholesterol is the primary guide to therapy. The NCEP recommends further evaluation of: patients with cholesterol greater than 200 mg/dL if additional risk facto rs are present, cholesterol greater than 240 mg/dL, triglycerides greater than 1 50 mg/dL, or HDL less than 40 mg/dL. Triglycerides 88 0 - 150 mg/dL [facility] [place] HDL Cholesterol 33 (L) >40 mg/dL [facility] [place] LDL Cholesterol Calculated 108 0 - 129 mg/dL [facility] Comment: LDL Cholesterol is the primary guide to therapy: LDL-cholesterol goal in high risk patients is <100 mg/dL and in very high risk patients is <70 mg/dL. VLDL-Cholesterol 18 0 - 30 mg/dL [facility] [place] Cholesterol/HDL Ratio 4.9 0.0 - 5.0 [facility] Specimen Anatomical Collection Method Collection Time Receive d Time (Source) Location / / Volume Laterality Blood specimen 07/26/2013 12:21 4 (specimen) PM CDT 12:24 PM CDT Jensen Melendez MD LAB - BLOOD ORDERABLES Performing Organization Address City/[facility]/ZIP Code Phon e Number [facility] [address] [place] [address] [phone] (ABNORMAL) Hemoglobin A1c (07/26/2013 12:21 PM CDT) athologist Signature Hemoglobin A1C 6.9 (H) 4.3 - 6.0 [facility] Specimen Anatomical Collection Method Collection Time Receive d Time (Source) Location / / Volume Laterality Blood specimen 07/26/2013 12:21 4 (specimen) PM CDT 12:24 PM CDT Karel Carbajal MD LAB - BLOOD ORDERABLES Performing Organization Address City/State/ZIP Code Phon e Number [facility] [address] [place] [address] documented in this encounter Visit Diagnoses Diagnosis Upper abdominal pain - Primary Abdominal pain, other specified site PUD (peptic ulcer disease) Peptic ulcer, unspecified site, unspecif ied as acute or chronic, without mention of hemorrhage, perforation, or obstruction Esophageal reflux Diabetes mellitus, type 2 (H) Type II or unspecified type diabetes samuel litus without mention of complication, not stated as uncontrolled DM (diabetes mellitus) (H) Type II or unspecified type diabetes samuel litus without mention of complication, not stated as uncontrolled Nausea Nausea alone Increased nausea and vomiting Nausea with vomiting documented in this encounter Additional Health Concerns Infection Onset Date Last Indicated Resolved Time MRSA-Contact IsolationComment: Skin 12-25-2012 01/02/2013 documented as of this encounter Care Teams Cdl Truck Driver Relationship Specialty Start Date End Date Jensen Melendez, NATALY - General Student in organized 10/31/12 01/13/[address] education/[place] [address] documented as of this encounter
--- OUTSIDE RECORDS SUMMARY | 2022-04-14 09:13 | XMS_ITS | Encounter Summary ---
:1975 Author Organization [facility] Address [address] [place] [address]. [place] [address] Care Team Providers Name Role Phone Jensen Melendez MD Primary Care Provider [phone] Reason for Visit Reason Onset Date Comments Medication Request 07/09/2013 pain med Rib Pain 07/09/2013 Encounter Details Date Type Department Care Team Description 07/09/2013 Telephone [facility] Prashanth Castillo Medication Request [address] [facility] MD Alfredo (pain med); Rib Pain [place] [id number] [id number] [facility] [phone] [facility] [place] [id number] (Wo rk) Social History Tobacco Use Types Packs/Day Years Used Date Smoking Tobacco: Never Smokeless Tobacco: Never Alcohol Use Standard Drinks/Week Comments No 0 (1 standard drink = 0.6 oz pure alcoho l) Sex Assigned at Date Recorded Not on file documented as of this encounter Miscellaneous Notes Telephone Encounter - Fernanda Graf LPN - 07/09/2013 11:44 AM CST Rx faxed to [facility] and called and spoke with Kaiden and gave message as stated below by Dr Rios. Fernanda Graf LPN PACKER Telephone Encounter - Prashanth Rios MD - 07/09/2013 11:31 AM HOT PACKER Please call Script for guaifenesin with codeine If pain persists or worsens, needs follow-up visit Script to station B PACKER Telephone Encounter - Alisa Corral, RN - 07/09/2013 9:44 AM CST Patient calling, is wondering if he can get a pain medication for his right side rib pain. Has been coughing and sneezing, feels that his might have pulled a muscle, hurts when he moves. Has been taking Tylenol, but this is not effective for the pain. States he can't take NSAID's because he has history of ulcer. Denies any shortness of breath, constant severe pain. Please advise Dr. Rios. Call back when addressed. Alisa Corral RN Message Handled by Nurse Triage PACKER documented in this encounter Plan of Treatment Not on filedocumented as of this encounter Visit Diagnoses Diagnosis Cough - Primary Chest wall pain Painful respiration documented in this encounter Additional Health Concerns Infection Onset Date Last Indicated Resolved Time MRSA-Contact IsolationComment: Skin 12-25-2012 01/02/2013 documented as of this encounter Care Teams Training Technician Relationship Specialty Start Date End Date Jensen Melendez, NATALY - General Student in organized 10/31/12 01/13/14 [place] [address] education/[place] [address] documented as of this encounter
--- OUTSIDE RECORDS SUMMARY | 2022-04-14 09:13 | XMS_ITS | Encounter Summary ---
:1975 Author Organization [facility] Address [address] [facility] [place] [address] Care Team Providers Name Role Phone Jensen Melendez MD Primary Care Provider [phone] Reason for Visit (Routine) - Closed Specialty Diagnoses / Procedures Referred By Contact Refer red To Contact Radiology / Diagnoses R#NA MC; Non Epic sb Julia Mri Radiology. Procedures MR ENTEROGRAPHY [address] [place] [address] Phone: Fax: Referral ID Status Reason Start Date Expiration Date Visits Requ ested Visits Authorized [id number] Closed 10/23/2013 10/23/2014 1 1 Encounter Details Date Type Department Care Team Description 11/07/2013 Hospital Encounter [facility] Sandra Meier ea; [facility] Jayden Gallo; [address] MD Family history of cancer [facility] [address] GASTROENTEROLOG [phone] [place], [place] [address] Social History Tobacco Use Types Packs/Day Years [...] Procedure Name Priority Date/Time Associated Comments Diagnosis MR ENTEROGRAPHY W/O Routine 11/07/2013 12:43 Nausea Results for this AND W CONTRAST PM CDT Vomiting procedure are in Family history of the result s cancer section. documented in this encounter Results MR Enterography (11/07/2013 12:43 PM CDT) Anatomical Region Laterality Modality Abdomen/Pelvis, SUBRAD MR BODY, UMP MR BODY Magnetic Resonance Specimen (Source) Anatomical Location Collection Method / Collectio n Time Received Time / Laterality Volume Impressions 11/07/2013 1:24 PM CDT IMPRESSION: 1. No acute appearing bowel inflammation identified. No evidence for abnormal bowel enhancement or bowel wall thickening. 2. Upper abdominal organs appear normal. There is no free fluid, adenopathy or acute inflammation identif ied. RENETTA MEJIAS MD Narrative 11/07/2013 1:24 PM CDT MR ENTEROGRAPHY 11/07/2013 12:43 PM CLINICAL INFORMATION: Abdominal pain, di arrhea and vomiting. Mucous in the stool and blood in the stool, and ro tated, symptoms described as a couple of years. TECHNIQUE: MR enterography. 15 cc IV lyndsey avist. FINDINGS: No focal liver lesions identif ied. There appears to be very mild diffuse fatty infiltration of the l iver. Gallbladder, spleen with 2 cm accessory spleen along the medial i nferior spleen, pancreas, adrenal glands, and kidneys appear loreta l bilaterally. There is no periaortic or pelvic adenopathy. There i s artifact at the inferior most pelvis which obscures the lowest po rtion of the pelvis. There is no evidence for bowel obstructi on and no abnormal bowel enhancement or bowel wall thickening is identified. No free fluid. Appendix appears normal. Procedure Note Renetta Mejias MD - 11/07/2013For matting of this note might be different from the original. MR ENTEROGRAPHY 11/07/2013 12:43 PM CLINICAL INFORMATION: Abdominal pain, di arrhea and vomiting. Mucous in the stool and blood in the stool, and ro tated, symptoms described as a couple of years. TECHNIQUE: MR enterography. 15 cc IV lyndsey avist. FINDINGS: No focal liver lesions identif ied. There appears to be very mild diffuse fatty infiltration of the l iver. Gallbladder, spleen with 2 cm accessory spleen along the medial i nferior spleen, pancreas, adrenal glands, and kidneys appear loreta l bilaterally. There is no periaortic or pelvic adenopathy. There i s artifact at the inferior most pelvis which obscures the lowest po rtion of the pelvis. There is no evidence for bowel obstructi on and no abnormal bowel enhancement or bowel wall thickening is identified. No free fluid. Appendix appears normal. IMPRESSION IMPRESSION: 1. No acute appearing bowel inflammation identified. No evidence for abnormal bowel enhancement or bowel wall thickening. 2. Upper abdominal organs appear normal. There is no free fluid, adenopathy or acute inflammation identif ied. RENETTA MEJIAS MD Drew Meier MD [facility] [place] documented in this encounter Visit Diagnoses Diagnosis Nausea Nausea alone Vomiting Vomiting alone Family history of cancer Family history of unspecified malignant neoplasm documented in this encounter Administered Medications Inactive Administered Medications - up to 3 most recent administrations Medication Order MAR Action Action Date Dose Rate Site barium sulfate (VOLUMEN) oral Given 11/07/2013 9:54 AM CDT 1,350 mLs suspension 0.1 % 1,350 mL Oral, ONCE, On Sheba 11/07/13 at 0930, For 1 dose gadobutrol (GADAVIST) injection 15 mL Given 11/07/2013 9:54 AM CDT 15 mLs 15 mL, Intravenous, ONCE, On Sheba 11/07/13 at 0930, For 1 dose hyoscyamine (LEVSIN/SL) 0.125 MG SL tabl et Starting on Sheba 11/07/13 at 0908, For 1 d AIDEN hutchinson ROBIN: cabinet override hyoscyamine (LEVSIN/SL) SL tablet 250 mc g Given 11/07/2013 9:07 AM CDT 250 mcg 250 mcg, Oral, ONCE, On Sheba 11/07/13 at 0745, For 1 dose sodium chloride (PF) 0.9% PF flush 60 mL Given 11/07/2013 9:58 AM CDT 60 mLs 60 mL, Intravenous, ONCE, On Sheba 11/07/13 at 0930, For 1 dose documented in this encounter Additional Health Concerns Infection Onset Date Last Indicated Resolved Time MRSA-Contact IsolationComment: Skin 12-25-2012 01/02/2013 documented as of this encounter Care Teams Software Applications Designer Relationship Specialty Start Date End Date Jensen Melendez PCP - General Student in organized 10/31/12 01/13/14 [place] [address] education/[place] [address] documented as of this encounter
--- OUTSIDE RECORDS SUMMARY | 2022-04-14 09:13 | XMS_ITS | Encounter Summary ---
:1975 Author Organization [facility] Address [address] [facility] [place] [address] Care Team Providers Name Role Phone Christine Marr MD Primary Care Provider [phone] Reason for Visit Auth/Cert - Closed Specialty Diagnoses / Procedures Referred By Contact Refer red To Contact Gastroenterology Diagnoses screening Rh Endoscopy Procedures COLONOSCOPY [address] [place] [address] Phone: Fax: Referral ID Status Reason Start Date Expiration Date Visits Requ ested Visits Authorized [id number] Closed 1 1 Encounter Details Date Type Department Care Team Description 01/17/2014 Surgery [facility] Endoscopy Prashanth Freed MD Colonoscopy [place] [facility] [address] [facility] [address] [place] [address] [place] [address] [phone] (Wo rk) Surgery Details Date/Time Status Location OR Service Patient Class Case Case Trauma Class Type Case? 01/17/14 10:30 Posted GI GI A Gastroenterology Outpatient AM Panel 1 Procedure LRB Anes Op Region Wound Class Commen ts Colonoscopy N/A Conscious Sedation Rectum II-Clean Contami nated Colonoscopy Surgeon Surgeon Role Service Panel Prashanth Aj MD Primary Gastroenterology 1 documented in this encounter Social History Tobacco Use Types Packs/Day Years [...] noninfectious gastroenteritis and colitis(558.9), Nausea with vomiting omeprazole (PRILOSEC) Take 1 capsule (20 30 capsule 0 201301/29/2014 20 MG capsule mg) by mouth daily ondansetron (ZOFRAN) 4 Take 1 tablet (4 mg) 8 tablet 0 01/29/2014 MG tablet by mouth every 6 hours sucralfate (CARAFATE) 1 Take 10 mLs (1 g) by 420 mL 1 01/29/2014 GM/10ML mouth 4 times daily suspensionIndications: Nausea with vomiting, Gastroparesis, Other and unspecified noninfectious gastroenteritis and colitis(558.9), Diabetes mellitus, type 2 (H) traMADol (ULTRAM) 50 MG Take 1 tablet (50 mg) 15 tablet 0 0 01/10/2014 01/29/2014 tablet by mouth every 6 hours as needed for moderate pain documented as of this encounter H&P Notes Prashanth Aj MD - 01/17/2014 10:59 AM CDT Pre-Endoscopy History and Physical Kaiden Reyna Date of : 1975 Age: [age] year old Date of Procedure: 01/17/2014 Primary care provider: Christine Marr Type of Endoscopy: Colonoscopy with possible biopsy, possible polypectomy Reason for Procedure: pain Type of Anesthesia Anticipated: Conscious Sedation HPI: Kaiden is a 38 year old male who will be undergoing the above procedure. A history and physical has been performed. The patient's medications and allergies have been reviewed. The risks and benefits of the procedure and the sedation options and risks were discussed with thepatient. All questions were answered and informed consent was obtained. He denies a personal or family history of anesthesia complications or bleeding disorders. Patient Active Problem List Diagnosis ??? CARDIOVASCULAR SCREENING; LDL GOAL LESS THAN 100 ??? Hyperthyroidism ? ? Diabetes mellitus, type 2; BP Goal <140/90 ??? MRSA cellulitis ??? GERD (gastroesophageal reflux disease) Past Medical History Diagnosis Date ??? Thyroiditis ??? Cellulitis Frequent skin infections and boils since childhood ??? Diabetes mellitus Type II ??? Gastric ulcer 2003 ??? MRSA cellulitis Past Surgical History Procedure Laterality Date ??? Gi surgery ??? Esophagoscopy, gastroscopy, duodenoscopy (egd), combined 07/30/2013 Procedure: COMBINED ESOPHAGOSCOPY, GASTROSCOPY, DUODENOSCOPY (EGD), BIOPSY SINGLE OR MULTIPLE; ESOPHAGOSCOPY, GASTROSCOPY, DUODENOSCOPY (EGD) and gastric bx R/O H. Pylori/WW; Surgeon: Prashanth Aj MD; Location: [facility] ??? Colonoscopy 01/17/2014 Dr. Aj [facility] History Substance Use Topics ??? Smoking status: [...] C.A.D. Paternal Grandfather ??? Diabetes Paternal Grandmother Prior to Admission medications Medication Sig Start Date End Date Taking? Authorizing Provider traMADol (ULTRAM) 50 MG tablet Take 1 tablet (50 mg) by mouth every 6 hours as needed for moderate pain 01/10/14 Yes Ethan Barksdale MD ondansetron (ZOFRAN) 4 MG tablet Take 1 tablet (4 mg) by mouth every 6 hours 01/10/14 Yes Ethan Barksdale MD omeprazole (PRILOSEC) 20 MG capsule Take 1 capsule (20 mg) by mouth daily 01/10/14 02/09/14 Yes Ethan Barksdale MD metoclopramide (REGLAN) 10 MG tablet Take 1 tablet (10 mg) by mouth 4 times daily (before meals and nightly) [take for 2-8 weeks. ] 10/08/13 Yes Karel Carbajal MD sucralfate (CARAFATE) 1 GM/10ML suspension Take 10 mLs (1 g) by mouth 4 times daily 10/08/13 Yes Karel Carbajal MD chlorhexidine (HIBICLENS) 4 % external liquid Apply 5 mLs topically daily as needed for wound care Put 1 capful, approximately 5 ml of chlorhexidine into bath each bath for 10 days. 09/10/13 Yes Miquel De Luna MD Allergies Allergen Reactions ??? Penicillins Anaphylaxis ??? Vancomycin Anaphylaxis REVIEW OF SYSTEMS: 5 point ROS negative except as noted above in HPI, including Gen., Resp., CV, GI & system review. PHYSICAL EXAM: There were no vitals taken for this visit. Estimated body mass index is 35.87 kg/(m^2) as calculatedfrom the following: Height as of 10/08/13: 1.778 m (5' 10). Weight as of 01/10/14: 113.399 kg (250 lb). GENERAL APPEARANCE: alert, and oriented MENTAL STATUS: alert AIRWAY EXAM: Mallampatti Class I (visualization of the soft palate, fauces, uvula, anterior and posterior pillars) RESP: lungs clear to auscultation - no rales, rhonchi or wheezes CV: regular rates and rhythm DIAGNOSTICS: Not indicated IMPRESSION ASA Class 2 - Mild systemic disease PLAN: Plan for Colonoscopy with possible biopsy, possible polypectomy. We discussed the risks, benefits and alternatives and the patient wished to proceed. The above has been forwarded to the consulting provider. Signed Electronically by: Prashanth Aj MD January 17, 2014 documented in this encounter Plan of Treatment Not on filedocumented as of this encounter Procedures Procedure Name Priority Date/Time Associated Diagnosis Comme nts COLONOSCOPY Routine 01/17/2014 11:01 AM Results for this CDT procedure are i n the results section . COLONOSCOPY 01/17/2014 10:56 AM screen CDT documented in this encounter Results COLONOSCOPY (01/17/2014 11:01 AM CDT) [facility] Method Time Signature COLONOSCOPY [facility] RAD IOLOGY RESULTS Patient Name: Kaiden Reyna ? Procedure Date: 01/17/2014 11:01:32 AM ? Date of : 1975 ? Admit Type: Outpatient ? Age: 38 ? Gender: Male ? Attending MD: Prashanth Cedeno MD ? Procedure: ?Colonoscopy Indications: ?Screening in patient at increased risk: Colorectal ?cancer in father dung re age 60 Providers: ?Prashanth Aj MD Referring MD: ? Christine Marr MD Medicines: ?Midazolam 2 mg IV, Fentanyl 100 micrograms IV Complications: ?No immediate complications Procedure: ?Pre-Anesthesia Assessment: ?- Prior to the procedure, a History and Physical ?was performed, and patient medications and ?allergies were reviewed. The patient is competent. ?The risks and benefits of the procedure and the ?sedation options and risks were discussed with the ?patient. All questions were answered and informed ?consent was obtained. Patient identification and ?proposed procedure were verified by the physician. ?Mental Status Examination: alert and oriented. ?Airway Examination: normal oropharyngeal airway and ?neck mobility. Respiratory Examination: clear to ?auscultation. CV Examination: normal. Prophylactic ?Antibiotics: The patient does not require ?prophylactic antibiotics. Prior Anticoagulants: The ?patient has taken no previous anticoagulant or ?antiplatelet agents. ASA Grade Assessment: I - A ?normal, healthy patient. After reviewing the risks ?a nd benefits, the patient was deemed in ?satisfactory condition to undergo the procedure. ?The anesthesia plan was to use moderate sedation / ?analgesia (conscious sedation). Immediately prior ?to administration of medications, the patient was ?re-assessed for adequacy to receive sedatives. The ?heart rate, respiratory rate, oxygen saturations, ?blood pressure, adequacy of pulmonary ventilation, ?and response to care were monitored throughout the ?procedure. The physical status of the patient was ?re-assessed after the procedure. ?After obtaining informed consent, the colonoscope ?was passed under direct vision. Throughout the ?procedure, the patient's blood pressure, pulse, and ?oxygen saturations were monitored continuously. The ?[id number] was introduced through the anus ?and advanced to the cecum, identified by ?appendiceal orifice & ileocecal valve. The ?colonoscopy was performed without difficulty. The ?patient tolerated the procedure well. The quality ?of the bowel preparat ion was good. ? Findings: ? The perianal and digital rectal examinations were n ormal. The entire ? examined colon appeared normal on direct and retrofle xion views. ? Impression: ? - The entire examined colon is normal on direct and ?retroflexion views. Recommendation: ? - Repeat colonoscopy in 5 years for surveillance. ?Elevate head of bed 6 inches off the ground. ? Electronically signed by Prashanth Aj MD Prashanth Aj MD Signed Date: 01/17/2014 11:30:37 AM Number of Addenda: 0 I was physically present for the entire viewing portion of t he exam. Note Initiated On: 01/17/2014 11:01:32 AM Scope Withdrawal Time: 0 hours 6 minutes 30 seconds Scope Withdrawal Time: 0 hours 6 minutes 30 seconds Total Procedure Duration: 0 hours 11 minutes 35 seconds Total Procedure Duration: 0 hours 11 minutes 35 seconds Specimen (Source) Anatomical Collection Method Collection Time Re ceived Time Location / / Volume Laterality 01/17/2014 11:01 AM CDT Christine Marr MD PROCEDURES Performing Organization Address City/State/ZIP Code Phon e Number RADIOLOGY RESULTS documented in this encounter Visit Diagnoses Not on filedocumented in this encounter Administered Medications Inactive Administered Medications - up to 3 most recent administrations Medication Order MAR Action Action Date Dose Rate Site fentaNYL (SUBLIMAZE) injection Given 01/17/2014 11:10 AM CDT 100 mcg PRN, moderate to severe pain, Starting on Mon01/17/14 at 1110, Intra-procedure midazolam (VERSED) injection Given 01/17/2014 11:11 AM CDT 2 mg PRN, anxiety, Starting on Mon01/17/14 at 1111, Intra-procedure documented in this encounter Active and Recently Administered Medications Times are shown in CDT. PRN Medication Order 01/15/2014 01/16/2014 01/17/2014 fentaNYL (SUBLIMAZE) injection (CANCELED) 1110 (Given - Provider: Prashanth Aj MD) PRN, Starting Mon01/17/14 at 1110, moderate to severe pain, Intra -procedure midazolam (VERSED) injection (CANCELED) 1111 (Given - Provider: Prashanth Aj MD) PRN, Starting Mon01/17/14 at 1111, anxiety, Intra-procedure documented in this encounter Additional Health Concerns Infection Onset Date Last Indicated Resolved Time MRSA-Contact IsolationComment: Skin 12-25-2012 01/02/2013 documented as of this encounter Care Teams Er Nurse Relationship Specialty Start Date End Date Christine Marr MD PCP - General Pediatrics 01/14/14 documented as of this encounter
--- OUTSIDE RECORDS SUMMARY | 2022-04-14 09:13 | XMS_ITS | Encounter Summary ---
:1975 Author Organization [place] Address [address] [place] [address]. [place] [address] Care Team Providers Name Role Phone Nora Spangler MD Primary Care Provider [phone] Reason for Referral Consultation - Closed Specialty Diagnoses / Procedures Referred By Contact Refer red To Contact Diagnoses Intractable vomiting Loss of weight Abdominal pain, generalized Nora Spangler [facility] [address] [facility] [address] [place] [phone] Fax: Referral ID Status Reason Start Date Expiration Date Visits Requ ested Visits Authorized [id number] Closed 01/14/2014 07/13/2014 1 1 Reason for Visit Reason Comments ER F/U Encounter Details Date Type Department Care Team Description 01/14/2014 Office Visit [facility] Nora Spangler Abdom inal pain, generalized (Primary Dx); [place] Novak MD Loss of weight; [address] [facility] Intractable vomiting [place] [phone] [address] [facility] [phone] [place], [place] [address] (Wo rk) Social History Tobacco Use Types Packs/Day Years Used Date Smoking Tobacco: Never Smokeless Tobacco: Never Alcohol Use Standard Drinks/Week Comments No 0 (1 standard drink = 0.6 oz pure alcoho l) Sex Assigned at Date Recorded Not on file documented as of this encounter Last Filed Vital Signs Vital Sign Reading Time Taken Comments Blood Pressure 134/84 01/14/2014 11:25 AM CDT Pulse 84 01/14/2014 11:25 AM CDT Temperature 36.9 ??C (98.4 ??F) 01/14/2014 11:25 AM CDT Respiratory Rate - - Oxygen Saturation - - Inhaled Oxygen Concentration - - Weight 109.5 kg (241 lb 4.8 oz) 01/14/2014 11:25 AM CDT Height 177.8 cm (5' 10) 01/14/2014 11:25 AM CDT Body Mass Index 34.62 01/14/2014 11:25 AM CDT documented in this encounter Progress Notes Nora Spangler MD - 01/14/2014 11:21 AM CDT SUBJECTIVE: Kaiden Reyna is a 38 year old male who presents to clinic today for the following health issues: ED/UC Followup: Facility: [facility] Date of visit: 01/09 & 01/10 Reason for visit: abdominal pain Current Status: still having disomfort abdominal pain: Started with pain in RUQ, was seen in ER in [facility]. Ultrasound was done and was discharged. Went to work the next day had persistent right side pain. Had CT, blood work that wasnormal. Has been constipated since this started, also developed vomiting. Now having persistent crampy abdominal pain over abdomen. Is able to pass gas but has only had small amount of black tarry stools. Also notes burning epigastric pain associated with this. Has had a year worth of vomiting first thing in the am. Has had EGD and gastroenterology consult. Since has been vomiting what I put in. Was able to keep dinner down last night. Has a colonoscopy scheduled for Monday. Not taking anything currently for pain or nausea, zofran doesn't help because he wakes up nauseated. Reglan caused abdominal pain. Has a previous history of an ulcer, no history of abdominal surgeries. Is off all DM meds. Problem list and histories reviewed & adjusted, as indicated. Additional history: as documented Problem list, Medication list, Allergies, and Medical/Social/Surgical histories reviewed in [facility] andupdated as appropriate. ROS: C: NEGATIVE for fever, chills, change in weight E/M: NEGATIVE for ear, mouth and throat problems R: NEGATIVE for significant cough or SOB CV: NEGATIVE for chest pain, palpitations or peripheral edema OBJECTIVE: BP 134/84 Pulse 84 Temp(Src) 98.4 ??F (36.9 ??C) (Oral) Ht 5' 10 (1.778 m) Wt 241 lb 4.8 oz(109.453 kg) BMI 34.62 kg/m2 Body mass index is 34.62 kg/(m^2). GENERAL: healthy, alert, well nourished, well hydrated, no distress HENT: ear canals- normal; TMs- normal; Nose- normal; Mouth- no ulcers, no lesions NECK: no tenderness, no adenopathy, no asymmetry, no masses, no stiffness; RESP: lungs clear to auscultation - no rales, no rhonchi, no wheezes CV: regular rates and rhythm, normal S1 S2, no S3 or S4 and no murmur, no click or rub - ABDOMEN: soft, normal bowel sounds. Difficult to evaluate HSM or masses due to body habitus. Mildly diffusely tender bilateral lower quadrants with no rebound or guarding. ASSESSMENT/PLAN: I spent 30 min face to face with patient over 50% in counseling on issues as detailed below (112.07) Abdominal pain, generalized (primary encounter diagnosis) -exam benign -has had significant recent work up including labs, ultrasound and CT that were all negative -is scheduled for colonoscopy which is good next step Plan: GASTROENTEROLOGY ADULT REFERRAL +/- PROCEDURE (693.21) Loss of weight -has a documented 20 lb weight loss since 09/2013 - considering GI history this is concerning even though w/u has been negative thus far Plan: GASTROENTEROLOGY ADULT REFERRAL +/- PROCEDURE (496.2) Intractable vomiting -longer term problem than the weight loss or abdominal pain -will have him complete colonoscopy and discuss again with GI Plan: GASTROENTEROLOGY ADULT REFERRAL +/- PROCEDURE Discussed with patient at length that he would benefit from one primary rather than seeing multiple people. Will schedule a follow up, he is to call me with worsening symptoms or send mychart. Follow up with Provider - 3-4 weeks as scheduled. NORA SPANGLER MD [facility] documented in this encounter Nursing Notes Lou Cochran LPN - 01/14/2014 11:27 AM CDT Chief Complaint Patient presents with ??? ER F/U Initial BP 134/84 Pulse 84 Temp(Src) 98.4 ??F (36.9 ??C) (Oral) Ht 5' 10 (1.778 m) Wt 241 lb 4.8 oz (109.453 kg) BMI 34.62 kg/m2 Estimated body mass index is 34.62 kg/(m^2) as calculated from the following: Height as of this encounter: 5' 10 (1.778 m). Weight as of this encounter: 241 lb 4.8 oz (109.453 kg). BP completed using cuff size: nishant Cochran LPN documented in this encounter Plan of Treatment Scheduled Referrals Name Type Priority Associated Diagnoses Order S chedule GASTROENTEROLOGY ADULT Referral Routine Intractab le vomiting Ordered: REFERRAL +/- PROCEDURE Loss Of W eight 01/14/2014 Abdominal Pain, Generalized documented as of this encounter Visit Diagnoses Diagnosis Abdominal pain, generalized - Primary Loss of weight Intractable vomiting Persistent vomiting documented in this encounter Additional Health Concerns Infection Onset Date Last Indicated Resolved Time MRSA-Contact IsolationComment: Skin 12-25-2012 01/02/2013 documented as of this encounter Care Teams Staying Machine Operator Relationship Specialty Start Date End Date Nora Spangler MD PCP - General Pediatrics 01/14/14 documented as of this encounter
--- OUTSIDE RECORDS SUMMARY | 2022-04-14 09:13 | XMS_ITS | Encounter Summary ---
:1975 Author Organization [facility] Address [address] [place] [address]. [place] [address] Care Team Providers Name Role Phone Jensen Melendez MD Primary Care Provider Reason for Visit Reason Comments ER F/U Encounter Details Date Type Department Care Team Description 09/10/2013 Office Visit [facility] Eric Ames MD Cellulitis (Primary Dx); [place] [address] [facility] DM (diabetes mellitus) (H); [address] [facility] [place] [phone] [place] [address] Social History Tobacco Use Types Packs/Day Years Used Date Smoking Tobacco: Never Smokeless Tobacco: Never Alcohol Use Standard Drinks/Week Comments No 0 (1 standard drink = 0.6 oz pure alcoho l) Sex Assigned at Date Recorded Not on file documented as of this encounter Last Filed Vital Signs Vital Sign Reading Time Taken Comments Blood Pressure 126/72 09/10/2013 1:04 PM CDT Pulse 86 09/10/2013 1:04 PM CDT Temperature 36.8 ??C (98.2 ??F) 09/10/2013 1:04 PM CDT Respiratory Rate - - Oxygen Saturation 98% 09/10/2013 1:04 PM CDT Inhaled Oxygen Concentration - - Weight 116.6 kg (257 lb) 09/10/2013 1:04 PM CDT Height - - Body Mass Index 36.88 08/05/2013 11:44 PM CDT documented in this encounter Patient Instructions Patient InstructionsFoss, Miquel Stephen MD - 09/10/2013 1:51 PM CDT 1) Stop taking bactrim, start taking doxycycline 100 mg twice per day. Let us know if side effects with this medication. 2) Recheck in 1-2 weeks to discuss diabetes as well. 3) After course of antibiotics complete, will start MRSA eradication treatment. Apply bactroban to nares as instructed and take a daily bath in hibiclens bath. Mix Hibiclens 1 capful in one bath and scrub affected areas. 4) Tramadol every 6 hours as needed for pain. documented in this encounter Progress Notes Eric Ames MD - 09/10/2013 10:41 AM CDT SUBJECTIVE: Kaiden Reyna is a 38 year old male who presents to clinic today for the following health issues: ED/UC Followup: Facility: [facility] on 09/08/13 Date of visit: 08/05/13 Reason for visit: cellulitis and abscess of leg Current Status: not improving Mr. Reyna is a 38 yr old male with history of DM2, MRSA with history of cellulitis who presents for recheck on abscess and cellulitis on left lower abdomin area. He noted the area started swelling several days ago. He went to the ER in [place] and had an I & D of area. There was a culture done at that time, no packing of wound. Patient was started on bactrim and has been worsening while on bactrim, has been on for 48 hours now. Increased pain over abdomen without drainage. No fevers or chills. Nochest pain, SOB. He has not been checking glucoses. Notes that metformin causes GI upset at all doses. Last A1C was 6.9 in July. Has not been on other medications for DM2. He has not tried decolonization therapy for MRSA in past. Multiple visits for abscesses. Treated in past with bactrim, doxycycline, and clindamycin. Allergic to PCN and vancomycin. He also notes occasional pruritic areas on bilateral forearms, noted areas started as blisters and then scabbed over. No mouth sores or ulcerations. Problem list and histories reviewed & adjusted, as indicated. Additional history: as documented Allergies Allergen Reactions ??? Penicillins Anaphylaxis ??? Vancomycin Anaphylaxis ROS: A 10 point ROS was otherwise negative. Objective: BP 126/72 Pulse 86 Temp(Src) 98.2 ??F (36.8 ??C) (Oral) Wt 257 lb (116.574 kg) BMI 36.88 kg/m2 SpO2 98% General: alert, interactive, NAD HEENT: sclerae clear, MMM without lesions CV: RRR, no murmurs Resp: clear bilaterally, no wheezing or crackles Abdomen: ~ 2.5 x 4 cm area of dark erythema over lower abdomen with I and D site without drainage, slight fluctuance but no clear drainable area identified. Several smaller pustules noted over lower abdomen as well- non draining, no fluctuance. No signs of panniculitis. Small excoriated papules over bilateral forearms and arms bilaterally- no erythema Ext: warm and well perfused without edema. Culture results from [place]: Staph aureus, several strains. Susceptible to cipro, clindamycin, doxycycline, bactrim, resistant to oxacillin (MRSA). Assessment and plan: (492.9) Cellulitis (primary encounter diagnosis) (041.12) MRSA infection Comment: no improvement, possible worsening on bactrim, should be sensitive by culture but will change due to no improvement. Will also instruct on colonization clearance after treatment with doxycycline. Tramadol for pain. Plan: doxycycline Monohydrate 100 MG TABS, traMADol (ULTRAM) 50 MG tablet, chlorhexidine (HIBICLENS) 4 % external liquid - apply aquaphor or eucerin to bilateral upper arms papule area, does not seem consistent with drug reaction, present before starting antibiotics, recheck at next visit. (250.00) DM (diabetes mellitus) Comment: Patient not tolerating metformin, will have patient come for visit to discuss different medications that may be better for patient. Plan: DISCONTINUED: metFORMIN (GLUCOPHAGE-XR) 500 MG 24 hr tablet - Follow-up in 1-2 weeks to discuss DM cares, start keeping track of AM glucoses at home. Patient Instructions 1) Stop taking bactrim, start taking doxycycline 100 mg twice per day. Let us know if side effects with this medication. 2) Recheck in 1-2 weeks to discuss diabetes as well. 3) After course of antibiotics complete, will start MRSA eradication treatment. Apply bactroban to nares as instructed and take a daily bath in hibiclens bath. Mix Hibiclens 1 capful in one bath and scrub affected areas. 4) Tramadol every 6 hours as needed for pain. Eric Ames MD Internal Medicine and Pediatrics documented in this encounter Nursing Notes Destiny Low LPN - 09/10/2013 1:06 PM CDT Chief Complaint Patient presents with ??? ER F/U Initial BP 126/72 Pulse 86 Temp(Src) 98.2 ??F (36.8 ??C) (Oral) Wt 257 lb (116.574 kg) BMI 36.88 kg/m2 SpO2 98% Estimated body mass index is 36.88 kg/(m^2) as calculated from the following: Height as of 08/05/13: 5' 10 (1.778 m). Weight as of this encounter: 257 lb (116.574 kg). BP completed using cuff size: large documented in this encounter Plan of Treatment Not on filedocumented as of this encounter Visit Diagnoses Diagnosis Cellulitis - Primary Cellulitis and abscess of unspecified si te DM (diabetes mellitus) (H) Type II or unspecified type diabetes samuel litus without mention of complication, not stated as uncontrolled MRSA infection Methicillin resistant Staphylococcus aur eus in conditions classified elsewhere and of unspecified site documented in this encounter Additional Health Concerns Infection Onset Date Last Indicated Resolved Time MRSA-Contact IsolationComment: Skin 12-25-2012 01/02/2013 documented as of this encounter Care Teams Repair Table Operator Relationship Specialty Start Date End Date Jensen Melendez, PCP - General Student in organized 10/31/12 01/13/14 [place] [id number] education/[place] [address] documented as of this encounter
--- OUTSIDE RECORDS SUMMARY | 2022-04-14 09:13 | XMS_ITS | Encounter Summary ---
:1975 Author Organization [facility] Address [address] [place] [address]. [place] [address] Care Team Providers Name Role Phone Jensen Melendez MD Primary Care Provider Reason for Visit Reason Onset Date Comments Abdominal Pain 01/09/2014 Encounter Details Date Type Department Care Team Description 01/09/2014 Telephone [facility] Jensen Melendez, Abdominal Pain [address] [facility] [place] [address] [address] [facility] [address] [place] [address] (Wo rk) Social History Tobacco Use Types Packs/Day Years Used Date Smoking Tobacco: Never Smokeless Tobacco: Never Alcohol Use Standard Drinks/Week Comments No 0 (1 standard drink = 0.6 oz pure alcoho l) Sex Assigned at Date Recorded Not on file documented as of this encounter Miscellaneous Notes Telephone Encounter - Annabella Nunez RN - 01/09/2014 9:41 AM CDT SUBJECTIVE: Kaiden Reyna is a 38 year old male who presents to clinic today for the following health issues: ABDOMINAL PAIN ?? Onset: 4 days ago ?? Description: Character: Sharp at times and Dull ache Location: right upper quadrant Radiation: None ?? Intensity: 10/10 most times, 6/10 now, but states ?? Progression of Symptoms: worse constant intermittent ?? Accompanying Signs & Symptoms: Fever/Chills: YES, with blisters all over body, not confined to one side x on and off in the last 2 weeks, painful but look like heat blisters Gas/Bloating: no Nausea: YES Vomitting: YES Diarrhea: YES Dysuria or Hematuria: no ?? History: Trauma: no Previous similar pain: no Previous tests done: none ?? Precipitating factors: Does the pain change with: Food: no BM: no Urination: no ?? Alleviating factors: nothing ?? Therapies Tried and outcome: nothing ?? LMP: not applicable Patient was advised to go to ER. He states that he will but thinks that the pain is tolerable now and wants to see if it will resolve. Advised that with nausea and vomiting, he should go to ER to get aCT scan to determine what is wrong. Patient agrees. We discussed blisters, abdominal pain and the dehydration if vomiting often and patient agreed to go to ER for evaluation. Annabella Nunez RN Message handled by Nurse Triage. documented in this encounter Plan of Treatment Not on filedocumented as of this encounter Visit Diagnoses Not on filedocumented in this encounter Additional Health Concerns Infection Onset Date Last Indicated Resolved Time MRSA-Contact IsolationComment: Skin 12-25-2012 01/02/2013 documented as of this encounter Care Teams Warehouse Foreman Relationship Specialty Start Date End Date Jensen Melendez PCP - General Student in organized 10/31/12 01/13/14 [place] [address] education/[place] [address] documented as of this encounter
--- OUTSIDE RECORDS SUMMARY | 2022-04-14 09:13 | XMS_ITS | Encounter Summary ---
:1975 Author Organization [facility] Address [address] [facility] [place] [address] Care Team Providers Name Role Phone Christine Marr MD Primary Care Provider [phone] Reason for Visit Auth/Cert - Closed Specialty Diagnoses / Procedures Referred By Contact Refer red To Contact Gastroenterology Diagnoses screening Rh Endoscopy Procedures COLONOSCOPY [address] [place] [address] Phone: Fax: Referral ID Status Reason Start Date Expiration Date Visits Requ ested Visits Authorized [id number] Closed 1 1 Encounter Details Date Type Department Care Team Description 01/17/2014 Hospital Encounter [facility] Prashanth Aj , Endoscopy Nevin RAMIREZ [address] [place], [place] GASTROINTESTINAL [id number] [address] [facility] [phone] [place], [place] [address] (Wo rk) Social History Tobacco Use Types Packs/Day Years Used Date Smoking Tobacco: Never Smokeless Tobacco: Never Alcohol Use Standard Drinks/Week Comments No 0 (1 standard drink = 0.6 oz pure alcoho l) Sex Assigned at Date Recorded Not on file documented as of this encounter Last Filed Vital Signs Vital Sign Reading Time Taken Comments Blood Pressure 113/73 01/17/2014 12:00 PM CDT Pulse - - Temperature - - Respiratory Rate 12 01/17/2014 12:00 PM CDT Oxygen Saturation 97% 01/17/2014 12:00 PM CDT Inhaled Oxygen Concentration - - Weight - - Height - - Body Mass Index - - documented in this encounter Medications at Time of [...] ??? Colonoscopy 01/17/2014 Dr. Aj [facility] History Substance Use Topics ??? Smoking status: [...] encounter Results COLONOSCOPY (01/17/2014 11:01 AM CDT) [facility] Method Time Signature COLONOSCOPY [facility] RAD IOLOGY RESULTS Patient Name: Kaiden Reyna [...] ?oxygen saturations were monitored continuously. The ?[id number] was introduced through the anus ?and advanced [...] Diagnoses Not on filedocumented in this encounter Active and Recently Administered Medications Times are shown in CDT. PRN Medication Order 01/15/2014 01/16/2014 01/17/2014 fentaNYL (SUBLIMAZE) injection (CANCELED) 1110 (Given - Provider: Prashanth Aj MD) PRN, Starting 01/17/14 at 1110, moderate to severe pain, Intra -procedure midazolam (VERSED) injection (CANCELED) 1111 (Given - Provider: Prashanth Aj MD) PRN, Starting 01/17/14 at 1111, anxiety, Intra-procedure documented in this encounter Additional Health Concerns Infection Onset Date Last Indicated Resolved Time MRSA-Contact IsolationComment: Skin 12-25-2012 01/02/2013 documented as of this encounter Care Teams Server Software Engineer Relationship Specialty Start Date End Date Christine Marr MD PCP - General Pediatrics 01/14/14 documented as of this encounter
--- OUTSIDE RECORDS SUMMARY | 2022-04-14 09:13 | XMS_ITS | Encounter Summary ---
:1975 Author Organization [facility] Address [address] [place] [address]. [place] [address] Care Team Providers Name Role Phone Jensen Melendez MD Primary Care Provider [phone] Reason for Visit Reason Comments Abdominal Pain Encounter Details Date Type Department Care Team Description 01/10/2014 Emergency [facility] Hamilton Barksdale MD Abdominal pain, other specified site (Pr imary Dx); [facility] Emergency Dep t [facility] Vomiting [address] [place], [place] [address] [id number] [place] [address] [place], [place] [id number] (Wo rk) Social History Tobacco Use Types Packs/Day Years Used Date Smoking Tobacco: Never Smokeless Tobacco: Never Alcohol Use Standard Drinks/Week Comments No 0 (1 standard drink = 0.6 oz pure alcoho l) Sex Assigned at Date Recorded Not on file documented as of this encounter Last Filed Vital Signs Vital Sign Reading Time Taken Comments Blood Pressure 139/84 01/10/2014 7:45 AM CDT Pulse - - Temperature 36.9 ??C (98.4 ??F) 01/10/2014 5:15 AM CDT Respiratory Rate 22 01/10/2014 5:15 AM CDT Oxygen Saturation 96% 01/10/2014 7:45 AM CDT Inhaled Oxygen Concentration - - Weight 113.4 kg (250 lb) 01/10/2014 5:15 AM CDT Height 177.8 cm (5' 10) 01/10/2014 5:15 AM CDT Body Mass Index 35.87 01/10/2014 5:15 AM CDT documented in this encounter Discharge Instructions Discharge InstructionsEthan Barksdale MD - 01/10/2014 7:51 AM CDT Images from the original note were not included. Discharge Instructions Abdominal Pain Abdominal pain can be caused by many things. Your evaluation today does not show the exact cause foryour pain. Your doctor today has decided that it is unlikely your pain is due to a life threatening problem, or a problem requiring surgery or hospital admission. Sometimes those problems cannot be found right away, so it is very important that you follow up as directed. Sometimes only the changes which occur over time allow the cause of your pain to be found. Return to the Emergency Department for a recheck in 8-12 hours if your pain continues. If your pain gets worse, changes in location, or feels different, return to the Emergency Department right away. ADULTS: Return to the Emergency Department right away if: ??? You get an oral temperature above 102oF or as directed by your doctor. ??? You have blood in your stools (bright red or black, tarry stools). ??? You keep throwing up or can???t drink liquids. ??? You see blood when you throw up. ??? You can???t have a bowel movement or you can???t pass gas. ??? Your stomach gets bloated or bigger. ??? Your skin or the whites of your eyes look yellow. ??? You faint. ??? You have bloody, frequent or painful urination. ??? You have new symptoms or anything that worries you. CHILDREN: Return to the Emergency Department right away if your child has any of the above-listed symptoms or the following: ??? Pushes your hand away or screams/cries when his/her belly is touched. ??? You notice your child is very fussy or weak. ??? Your child is very tired and is too tired to eat or drink. ??? Your child is dehydrated. Signs of dehydration can be: o Your infant has had no wet diapers in 4-5 hours. o Your older child has not passed urine in 6-8 hours. o Your infant or child starts to have dry mouth and lips, or no saliva or tears. WOMEN: Return to the Emergency Department right away if you have any of the above-listed symptoms or the following: ??? You have bleeding, leaking fluid or passing tissue from the vagina. ??? You have worse pain or cramping, or pain in your shoulder or back. ??? You have vomiting that will not stop. ??? You have painful or bloody urination. ??? You have a temperature of 100oF or more. ??? Your baby is not moving as much as usual. ??? You faint. ??? You get a bad headache with or without eye problems and abdominal pain. ??? You have a convulsion or seizure. ??? You have unusual discharge from your vagina and abdominal pain. Abdominal pain is pretty common during . Your pain may or may not be related to your . You should follow-up closely with your OB doctor so they can evaluate you and your baby. Until you follow-up with your regular doctor, do the following: ??? Avoid sex and do not put anything in your vagina. ??? Drink clear fluids. ??? Only take medications approved by your doctor. MORE INFORMATION: Appendicitis: A possible cause of abdominal pain in any person who still has their appendix is acuteappendicitis. Appendicitis is often hard to diagnose. Testing does not always rule out early appendicitis or other causes of abdominal pain. Close follow-up with your doctor and re-evaluations may be needed to figure out the reason for your abdominal pain. Follow-up: It is very important that you make an appointment with your clinic and go to the appointment. If you do not follow-up with your primary doctor, it may result in missing an important development which could result in permanent injury or disability and/or lasting pain. If there is any problemkeeping your appointment, call your doctor or return to the Emergency Department. Medications: Take your medications as directed by your doctor today. Before using [id number] medications, ask your doctor and make sure to take the medications as directed. If you have any questions about medications, ask your doctor. Diet: Resume your normal diet as much as possible, but do not eat fried, fatty or spicy foods while you have pain. Do not drink alcohol or have caffeine. Do not smoke tobacco. Probiotics: If you have been given an antibiotic, you may want to also take a probiotic pill or eat yogurt with live cultures. Probiotics have good bacteria to help your intestines stay healthy. Studies have shown that probiotics help prevent diarrhea and other intestine problems (including C. diff infection) when you take antibiotics. You can buy these without a prescription in the pharmacy section of the store. If you were given a prescription for [...] contain Tylenol?? (acetaminophen), including Vicodin??, Tylenol #3??, [place]??, Lortab??, and Percocet??. You should not take [...] if there is anything that worries you. Home Back SP RU CH *VOMITING [6yr-Adult] Vomiting is a common symptom that may be due to different causes. These include gastroenteritis (stomach-flu), food poisoning and gastritis. There are other more serious causes of vomiting which may be hard to diagnose early in the illness. Therefore, it is important to watch for the warning signs listed below. The main danger from repeated vomiting is dehydration. This is due to excess loss of water and minerals from the body. When this occurs, body fluids must be replaced.` HOME CARE: ?? If symptoms are severe, rest at home for the next 24 hours. ?? You may use acetaminophen (Tylenol) 650-1000 mg every 6 hours to control fever, unless another medicine was prescribed. [ NOTE : If you have chronic liver disease, talk with your doctor before usingacetaminophen.] (Aspirin should never be used in anyone under 18 years of age who is ill with a fever. It may cause severe liver damage.) ?? Avoid tobacco and alcohol use, which may worsen your symptoms. ?? If medicines for vomiting were prescribed, take as directed. DURING THE FIRST 12-24 HOURS follow the diet below. Try to take frequent small sips even if you vomit occasionally: ?? FRUIT JUICES: Apple, grape juice, clear fruit drinks, electrolyte replacement and sports drinks. ?? BEVERAGES: Sport drinks such as Gatorade, soft drinks without caffeine; mineral water (plain or flavored), decaffeinated tea and coffee. ?? SOUPS: Clear broth, consomm?? and bouillon ?? DESSERTS: Plain gelatin (Jell-O), popsicles and fruit juice bars. DURING THE NEXT 24 HOURS you may add the following to the above: ?? Hot cereal, plain toast, bread, rolls, crackers ?? Plain noodles, rice, mashed potatoes, chicken noodle or rice soup ?? Unsweetened canned fruit (avoid pineapple), bananas ?? Avoid dairy products ?? Limit caffeine and chocolate. No spices or seasonings except salt. DURING THE NEXT 24 HOURS Slowly go back to a normal diet, as you feel better and your symptoms lessen. FOLLOW UP with your doctor as advised if you are not improving over the next 2-3 days. GET PROMPT MEDICAL ATTENTION if any of the following occur: ?? Constant abdominal pain that stays in the same spot or gets worse ?? Continued vomiting (unable to keep liquids down) for 24 hours ?? Frequent diarrhea (more than 5 times a day); blood (red or black color) in diarrhea ?? No urine output for 12 hours or extreme thirst ?? Weakness, dizziness or fainting ?? Unusually drowsy or confused ?? Fever over 101.0?? F (38.3?? C) for more than 3 days ?? Yellow color of the eyes or skin ?? [id number] [place] [address]. All rights reserved. This information is not intended as a substitute for professional medical care. Always follow your healthcare professional's instructions. documented in this encounter Medications at Time [...] moderate pain documented as of this encounter ED Notes Ethan Barksdale MD - 01/10/2014 5:28 AM CDT History Chief Complaint: Abdominal Pain, Nausea, and Vomiting HPI Kaiden Reyna is a 38 year old male with a history of gastric ulcers, GERD, and type 2 diabetes who presents with abdominal pain, nausea, and vomiting. The patient has been experiencing persistent bilateral mid abdominal pain for approximately the past 3 days and presents to the emergency departmenttoday with worsening pain as well as associated nausea and bloody vomiting. He explains he had been experiencing diarrhea a few days before the pain began and now is producing solid but black stools. He describes he had an ultrasound at the ER in [place] 12 hours earlier revealing gas in the intestine, but no acute findings, and notes he had a previous endoscopy about 5 months ago showing redness inthe duodenum. The patient denies chills, fevers, shortness of breath, chest pain, difficulty urinating, dysuria, hematuria, or rash. Allergies: Penicillins Vancomycin Medications: Reglan Carafate Ultram Hibiclens Past Medical History: GERD MRSA Hyperthyroidism Type 2 diabetes Thyroiditis Gastric ulcer Past Surgical History: The patient does not have any pertinent past surgical history. Family History: Lupus (mother), diabetes (paternal grandmother, paternal grandfather), liver disease (paternal grandmother, mother), autoimmune hepatitis (paternal grandmother, mother), CAD (mother, paternal grandfather), uterine cancer (sister), lung cancer (maternal grandfather) Marital Status: Social History: The patient is a non smoker and does not consume alcohol. The patient presents to the emergency department alone. Review of Systems Constitutional: Negative for fever and chills. Respiratory: Negative for shortness of breath. Cardiovascular: Negative for chest pain. Gastrointestinal: Positive for nausea, vomiting, abdominal pain, diarrhea and blood in stool. Genitourinary: Negative for dysuria, hematuria and difficulty urinating. Skin: Negative for rash. All other systems reviewed and are negative. Physical Exam First Vitals: BP: 136/90 mmHg Heart Rate: 85 Temp: 98.4 ??F (36.9 ??C) Resp: 22 Height: 177.8 cm (5' 10) Weight: 113.399 kg (250 lb) SpO2: 100 % Physical Exam Vital signs and nursing notes reviewed. Constitutional: No distress HENT: Oropharynx is clear and moist Eyes: Conjunctivae are normal bilaterally. Neck: normal range of motion Cardiovascular: Normal rate, regular rhythm, normal heart sounds. Pulmonary/Chest: Effort normal and breath sounds normal. No respiratory distress. Abdominal: Soft. Bowel sounds are normal. No rebound or guarding. Reported pain in right upper and left mid abdomen to palpation. Rectal: Normal yellow stool without bright red blood or black stool noted. No masses. Musculoskeletal: No joint swelling or edema. Neurological: Alert and oriented x3. Skin: Skin is warm and dry. No rash noted. Emergency Department Course Imaging: Radiographic findings were communicated with the patient who voiced understanding of the findings. CT Abdomen and Pelvis: 1. No acute abnormality is identified in the abdomen or pelvis. No definite cause for abdominal painand vomiting. 2. Indeterminate 0.9 cm right lower lobe pulmonary nodule. Followup CT in 3 months is recommended. Alternatively, PET CT could be considered for further characterization per Radiology. Laboratory: CBC: WNL (WBC 5.5, HGB 15.2, PLT 183) BMP: Glucose 141 (High) o/w WNL (Creatinine 1.01) Hepatic panel: WNL Lipase: 153 Lactic acid: 1.2 UA: Urineketon 10, Protein albumin 10, Mucous present, Amorphous crystals few o/w Negative Stool Occult blood: Negative Interventions: Sodium chloride 0.9% 1,000 mL IV (includes bolus + continuous drip) Isocue-370 500 mL IV GI Cocktail 30 mL PO Zofran 4 mg IV Emergency Department Course: Nursing notes and vitals reviewed. I performed an exam of the patient as documented above. IV inserted and blood drawn. The patient was sent for the following imaging: CT Abdomen and Pelvis. See results above. The patient's condition felt improved upon receiving the above interventions. I personally reviewed the laboratory results with the Patient and answered all related questions prior to discharge. Findings and plan explained to the Patient. Patient discharged home with instructions regarding supportive care, medications, and reasons to return. The importance of close follow-up was reviewed. The patient was prescribed Tramadol, Zofran, and Prilosec. Impression & Plan Medical Decision Making: Kaiden Reyna is a 38 year old male who presents with various locations of abdominal pain as well as nausea and vomiting. He reported that he thought he saw some bright blood in his vomit and also black stool; however, patient has no evidence of any GI bleeding here, specifically and emesis and on rectal exam appeared to have normal appearing stool, as well as his hemoglobin and and other testing are all negative. CT scan of the abdomen and pelvis does not show any evidence for cause of his pain, specifically colitis or obstructive process. I reviewed with the patient that all of his tests were essentially unremarkable and the plan of treatment. I discussed with him about wen alba tears, gas tritis and peptic ulcer diseased and recommended that he start Omeprazole daily and is to avoid nsaid medications. He is given prescriptions for Tramadol and Zofran as needed for symptomatic improvement of his pain and nausea. He is to followup with his primary care physician as an outpatient. He may need to recheck with an upper endoscopy and/or colonoscopy in the future if pain symptoms persist. Heunderstands the plan and reasons to return to the ED, and was discharged home. Diagnosis: 1. (789.09) Abdominal pain, other specified site (primary encounter diagnosis) 2. (787.03) Vomiting Loni Freeman , am serving as a Scribe on 01/10/2014 at 5:28 AM to personally document services performed by Dr. Barksdale based upon my observations and the provider's statements to me. Loni Mccall 01/10/2014 [facility] Ethan Barksdale MD 01/13/14 1444 Inge Moran RN - 01/10/2014 5:19 AM CDT IN TRIAGE airway,breathing and circulation intact, without need for intervention . Alert and interacting appropriately for age and situation. Hx of ulcer. Pain in left side 3 days , had diarrhea few days before that, now vomiting pain worse documented in this encounter Plan of Treatment Not on filedocumented as of this encounter Procedures Procedure Name Priority Date/Time Associated Comments Diagnosis CT ABDOMEN PELVIS W STAT 01/10/2014 7:22 AM Re sults for this CONTRAST CDT procedure are i n the results section. CBC WITH PLATELETS & STAT 01/10/2014 5:56 AM R esults for this DIFFERENTIAL CDT procedure are i n the results section. ROUTINE UA WITH STAT 01/10/2014 5:56 AM Result s for this MICROSCOPIC CDT procedure are i n the results section. LIPASE STAT 01/10/2014 5:56 AM Results f or this CDT procedure are i n the results section. LACTIC ACID STAT 01/10/2014 5:56 AM Results f or this CDT procedure are i n the results section. HEPATIC FUNCTION STAT 01/10/2014 5:56 AM Resul ts for this PANEL CDT procedure are i n the results section. BASIC METABOLIC PANEL STAT 01/10/2014 5:56 AM Results for this CDT procedure are i n the results section. OCCULT BLOOD STOOL STAT 01/10/2014 5:35 AM Res ults for this CDT procedure are i n the results section. documented in this encounter Results CT Abdomen Pelvis w Contrast (01/10/2014 7:22 AM CDT) Anatomical Region Laterality Modality Abdomen/Pelvis, SUBRAD CT BODY, UMP CT ABDOMEN PELVIS Computed Tomography Specimen (Source) Anatomical Location Collection Method / Collectio n Time Received Time / Laterality Volume Impressions 01/10/2014 11:44 AM CDT IMPRESSION: 1. No acute abnormality is identified in the abdomen or pelvis. No definite cause for abdominal pain and vo miting. 2. Indeterminate 0.9 cm right lower lobe pulmonary nodule. ??Followup CT in 3 months is recommended. Alternati tarsha, PET/CT could be considered for further characterization. JACE ROJO MD Narrative 01/10/2014 11:[address] ABDOMEN AND PELVIS WITH CONTRAST ??01/10/2014 7:22 AM HISTORY: Abdominal pain and vomiting. TECHNIQUE: 100 mL Isovue 370 IV was admi nistered without complication. Oral contrast was also administered. Aft er contrast administration, volumetric helical sections were acquire d from the lung bases to the ischial tuberosities. Coronal images wer e also reconstructed. COMPARISON: MR enterography performed . FINDINGS: The appendix is well seen and is unremarkable. No evidence for appendicitis. No bowel obstruction. No evidence for colitis or diverticulitis. No free fluid in the pel vis. The liver, gallbladder, spleen, adrenal glands, pancreas, and ki dneys are unremarkable. No hydronephrosis. ??Indeterminate 0.9 cm p ulmonary nodule in the right lower lobe posteriorly and medially (ser ies 2 image 6). Procedure Note Jace Rojo MD - 01/10/2014Forma tting of this note might be different from the original. CT ABDOMEN AND PELVIS WITH CONTRAST 01/10 7:22 AM HISTORY: Abdominal pain and vomiting. TECHNIQUE: 100 mL Isovue 370 IV was admi nistered without complication. Oral contrast was also administered. Aft er contrast administration, volumetric helical sections were acquire d from the lung bases to the ischial tuberosities. Coronal images wer e also reconstructed. COMPARISON: MR enterography performed . FINDINGS: The appendix is well seen and is unremarkable. No evidence for appendicitis. No bowel obstruction. No evidence for colitis or diverticulitis. No free fluid in the pel vis. The liver, gallbladder, spleen, adrenal glands, pancreas, and ki dneys are unremarkable. No hydronephrosis. Indeterminate 0.9 cm pul monary nodule in the right lower lobe posteriorly and medially (ser ies 2 image 6). IMPRESSION IMPRESSION: 1. No acute abnormality is identified in the abdomen or pelvis. No definite cause for abdominal pain and vo miting. 2. Indeterminate 0.9 cm right lower lobe pulmonary nodule. Followup CT in 3 months is recommended. Alternati vely, PET/CT could be considered for further characterization. JACE ROJO MD Ethan Barksdale MD IMG CT ORDERABLES (ABNORMAL) Routine UA with microscopic (01/10/2014 5:56 AM CDT) Patholo gist Method Time Signature Color Urine Yellow [facility] Appearance Urine Clear [facility] Glucose Urine Negative NEG mg/dL [facility] Bilirubin Urine Negative NEG [facility] Ketones Urine 10 (A) NEG mg/dL [facility] Specific Hensel 1.031 1.003 - [place] Urine 1.035 [facility] Blood Urine Negative NEG [facility] pH Urine 5.0 5.0 - 7.0 [place] pH [facility] Protein Albumin 10 (A) NEG mg/dL [facility] Urobilinogen Normal 0.0 - 2.0 [place] mg/dL mg/dL [facility] Nitrite Urine Negative NEG [facility] Leukocyte Negative NEG [place] Esterase Urine [facility] Source Midstream [place] Urine [facility] WBC Urine 1 0 - 2 [place] /HPF [facility] RBC Urine <1 0 - 2 [place] /[facility] Squamous <1 0 - 1 [place] Epithelial /HPF /HPF [facility] Mucous Urine Present (A) NEG /LPF [facility] Amorphous Few (A) NEG /HPF [place] Crystals [facility] Specimen Anatomical Collection Method Collection Time Receive d Time (Source) Location / / Volume Laterality Urine specimen URINE SPECIMEN 01/10/2014 5:56 AM 01/10 6:45 (specimen) OBTAINED BY CLEAN CDT AM CDT CATCH PROCEDURE / Unknown Ethan Barksdale MD LAB - URINE ORDERABLES Performing Organization Address City/State/ZIP Code Phon e Number M [facility] [address] [place] [address] [facility] Lactic acid (01/10/2014 5:56 AM CDT) athologist Signature Lactic Acid 1.2 0.4 - 2.0 [place] mmol/L [facility] Specimen Anatomical Collection Method Collection Time Receive d Time (Source) Location / / Volume Laterality Blood specimen 01/10/2014 5:56 AM 014 6:18 (specimen) CDT AM CDT Ethan Barksdale MD LAB - BLOOD ORDERABLES Performing Organization Address [facility] Phon e [address] [facility] [address], [place] [phone] [facility] Lipase (01/10/2014 5:56 AM CDT) athologist Signature Lipase 153 73 - 393 [facility] Comment: Effective 12/11/2013, the reference range for this assay has changed to reflect new instrumentation/methodology. Specimen Anatomical Collection Method Collection Time Receive d Time (Source) Location / / Volume Laterality Blood specimen 01/10/2014 5:56 AM 014 6:18 (specimen) CDT AM CDT Ethan Barksdale MD LAB - BLOOD ORDERABLES Performing Organization Address [facility] e [place] [address] [address], [place] [address] [phone] [place] [address] LAB Hepatic panel (01/10/2014 5:56 AM CDT) athologist Signature Bilirubin 0.2 0.0 - 0.2 [place] Direct mg/dL [facility] Comment: Effective 12/11/2013 all values are a sum mation of both the conjugated and delta bilirubin fractions. Effective 12/11/2013, the reference rang e for this assay has changed to reflect new instrumentation/methodology. Bilirubin Total 0.5 0.2 - 1.3 mg/dL [facility] Albumin 3.9 3.9 - 5.1 g/dL [facility] Protein Total 7.5 6.8 - 8.8 g/dL [facility] Alkaline Phosphatase 63 40 - 150 U/L [facility] ALT 48 0 - 70 U/L [facility] AST 43 0 - 45 U/L [facility] Specimen Anatomical Collection Method Collection Time Receive d Time (Source) Location / / Volume Laterality Blood specimen 01/10/2014 5:56 AM 014 6:18 (specimen) CDT AM CDT Ethan Barksdale MD LAB - BLOOD ORDERABLES Performing Organization Address City/[facility]/ZIP Code Phon jessie Palmer [facility] [address] [place] [address] [facility] (ABNORMAL) Basic metabolic panel (01/10/2014 5:56 AM CDT) athologist Signature Sodium 139 133 - 144 [place] mmol/L [facility] Potassium 3.6 3.4 - 5.3 [place] mmol/L [facility] Chloride 106 94 - 109 [place] mmol/L [facility] Carbon Dioxide 27 20 - 32 [place] mmol/L [facility] Anion Gap 6 6 - 17 [place] mmol/L [facility] Glucose 141 (H) 70 - 99 [place] mg/dL [facility] Comment: Effective 12/11/2013, the reference range for this assay has changed to reflect new instrumentation/methodology. Urea Nitrogen 17 7 - 30 mg/dL [facility] Comment: Effective 12/11/2013, the reference range for this assay has changed to reflect new instrumentation/methodology. Creatinine 1.01 0.66 - 1.25 mg/dL [facility] GFR Estimate 83 >60 mL/min/1.7m2 [facility] Comment: Non GFR Calc GFR Estimate If Black >90 >60 mL/min/1.7m2 F [facility] GFR Calc [facility] LAB Calcium 9.2 8.5 - 10.1 mg/dL [facility] Comment: Effective 12/11/2013, the reference range for this assay has changed to reflect new instrumentation/methodology. Specimen Anatomical Collection Method Collection Time Receive d Time (Source) Location / / Volume Laterality Blood specimen 01/10/2014 5:56 AM 014 6:18 (specimen) CDT AM CDT Ethan Barksdale MD LAB - BLOOD ORDERABLES Performing Organization Address City/[facility]/ZIP Code Phon jessie Palmer [facility] [address] [place], [place] [address] [facility] CBC with platelets differential (01/10/2014 5:56 AM CDT) [facility] Method Time Signature WBC 5.5 4.0 - [facility] 11.0 [facility] [address] LAB RBC Count 5.11 4.4 - 5.9 [facility] 10e12/L [facility] Hemoglobin 15.2 13.3 - [facility] 17.7 g/dL [facility] Hematocrit 44.6 40.0 - [facility] 53.0 % [facility] MCV 87 78 - 100 [place] fl [facility] MCH 29.7 26.5 [facility] MCHC 34.1 31.5 - [facility] 36.5 g/dL [facility] RDW 13.0 10.0 - [facility] 15.0 % [facility] Platelet Count 183 150 - [address] LAB Diff Method Automated [facility] % Neutrophils 65.1 % [facility] % Lymphocytes 24.3 % [facility] % Monocytes 6.9 % [facility] % Eosinophils 2.9 % [facility] % Basophils 0.4 % [facility] % Immature 0.4 % [facility] Granulocytes [facility] Absolute 3.6 1.6 - 8.3 [facility] Neutrophil 109L [facility] Absolute 1.3 0.8 - 5.3 [facility] Lymphocytes [address] [place] [address] LAB Absolute 0.4 0.0 - 1.3 [facility] Monocytes [address] [place] [address] LAB Absolute 0.2 0.0 - 0.7 [facility] Eosinophils [address] [place] [address] LAB Absolute 0.0 0.0 - 0.[address] [facility] Basophils [address] [place] [address] LAB Abs Immature 0.0 0 - 0.4 [facility] Granulocytes [address] [place] [address] LAB Specimen Anatomical Collection Method Collection Time Receive d Time (Source) Location / / Volume Laterality Blood specimen 01/10/2014 5:56 AM 014 6:18 (specimen) CDT AM CDT Ethan Barksdale MD LAB - BLOOD ORDERABLES Performing Organization Address City/State/ZIP Code Phon e Number M [facility] [address], [place] [address] [facility] Stool: occult blood (01/10/2014 5:35 AM CDT) P athologist Signature Occult Blood Negative NEG [facility] Specimen Anatomical Collection Method Collection Time Receive d Time (Source) Location / / Volume Laterality Stool specimen 01/10/2014 5:35 AM 014 7:01 (specimen) CDT AM CDT Ethan Barksdale MD LAB - STOOLS ORDERABLES Performing Organization Address City/State/ZIP Code Phon e Number M [facility] [address] [place] [address] [facility] documented in this encounter Visit Diagnoses Diagnosis Abdominal pain, other specified site - P rimary Vomiting Vomiting alone documented in this encounter Administered Medications Inactive Administered Medications - up to 3 most recent administrations Medication Order MAR Action Action Date Dose Rate Site iopamidol (ISOVUE-370) 76% Given 01/10/2014 7:15 AM CDT 100 mLs solution 500 mL 500 mL, Intravenous, ONCE, On Mon01/10/14 at 0709, For 1 dose lidocaine (XYLOCAINE) 2 % 15 mL, alum & mag Given 01/10/2014 6:29 AM CDT 30 mLs hydroxide-simethicone (MYLANTA ES/MAALOX ES) 15 mL GI Cocktail 30 mL, Oral, ONCE, On Mon01/10/14 at 0539, For 1 dose ondansetron (ZOFRAN) injection 4 mg Given 01/10/2014 6:29 AM CDT 4 mg 4 mg, Intravenous, ONCE PRN, nausea, vomiting, Administer over 2-5 Minutes, Starting on Mon01/10/14 at 0538, For 1 dose sodium chloride 0.9 % BOLUS New Bag 01/10/2014 6:29 AM CDT 1,000 m Ls 1000 mL/hr 1,000 mL Intravenous, 1,000 mL, ONCE, at 1,000 mL/hr, Administer over 1 Hours, On Mon01/10/14 at 0539, For 1 dose sodium chloride 0.9 % BOLUS 1,000 mL New Bag 01/10/2014 7:17 AM CDT 65 mLs Intravenous, 1,000 mL, ONCE, On Mon01/10/14 at 0709, For 1 dose documented in this encounter Active and Recently Administered Medications Times are shown in CDT. Scheduled Medication Order 01/08/2014 01/09/2014 01/10/2014 iopamidol (ISOVUE-370) 76% solution 500 mL (COMPLETED) 714 (Given - Provider: Cydney Rivera - Comment: bulk) 500 mL, Intravenous, ONCE, Mon01/10/14 at 0709, For 1 dose lidocaine (XYLOCAINE) 2 % 15 mL, alum & mag hydroxide-simethicone (MYLANTA ES/MAALOX ES) 15 mL GI Cocktail (COMPLETED) 628 (Given - Provider: Philly Acosta, CASA) 30 mL, Oral, ONCE, Mon01/10/14 at 0539, For 1 dose sodium chloride 0.9 % BOLUS 1,000 mL (COMPLETED) 06 (New Bag - Provider: Philly Acosta, RN)07 (Stopped - Provider: Christin Lara RN) Intravenous, 1,000 mL, ONCE, at 1,000 mL /hr, for 1 Hours, Mon01/10/14 at 0539, For 1 dose sodium chloride 0.9 % BOLUS 1,000 mL (COMPLETED) 07 (New Bag - Provider: Cydney Rivera - Comment: bulk)07 (Stopped - Provider: Cydney Rivera) Intravenous, 1,000 mL, ONCE, Mon01/10/14 at 0709, For 1 dose PRN Medication Order 01/08/2014 01/09/2014 01/10/2014 ondansetron (ZOFRAN) injection 4 mg (COMPLETED) 628 (Given - Provider: Philly Acosta, CASA) 4 mg, Intravenous, ONCE PRN, nausea, vom iting, for 2 Minutes, Starting Mon01/10/14 at 0538, For 1 dose documented in this encounter Additional Health Concerns Infection Onset Date Last Indicated Resolved Time MRSA-Contact IsolationComment: Skin 12-25-2012 01/02/2013 documented as of this encounter Care Teams Take Down Sorter Relationship Specialty Start Date End Date Jensen Melendez PCP - General Student in organized 10/31/12 01/13/14 [address] [id number] education/[place] [address] documented as of this encounter
--- OUTSIDE RECORDS SUMMARY | 2022-04-14 09:13 | XMS_ITS | Encounter Summary ---
:1975 Author Organization [facility] Address [address] [place] [address]. [place] [address] Care Team Providers Name Role Phone Jensen Melendez MD Primary Care Provider [phone] Reason for Visit Reason Comments Nausea, Vomiting, & Diarrhea Encounter Details Date Type Department Care Team Description [facility]2013 [facility] it[facility] leg (Primary Dx); 08/06/2013 [facility] Emergency MD Leticia Bronchitis; Dept [facility] Vomiting [address] [place], [place] [address] [facility] [address] [place], [place] [id number] (Wo rk) Social History Tobacco Use Types Packs/Day Years Used Date Smoking Tobacco: Never Smokeless Tobacco: Never Alcohol Use Standard Drinks/Week Comments No 0 (1 standard drink = 0.6 oz pure alcoho l) Sex Assigned at Date Recorded Not on file documented as of this encounter Last Filed Vital Signs Vital Sign Reading Time Taken Comments Blood Pressure 115/70 08/06/2013 1:35 AM CDT Pulse - - Temperature 36.8 ??C (98.3 ??F) 08/05/2013 11:44 PM CDT Respiratory Rate 20 08/05/2013 11:44 PM CDT Oxygen Saturation 92% 08/06/2013 1:35 AM CDT Inhaled Oxygen Concentration - - Weight 115.7 kg (255 lb) 08/05/2013 11:44 PM CDT Height 177.8 cm (5' 10) 08/05/2013 11:44 PM CDT Body Mass Index 36.59 08/05/2013 11:44 PM CDT documented in this encounter Discharge Instructions Discharge InstructionsChristine Rosen MD - 08/06/2013 1:24 AM CDT Discharge Instructions Boils or Abscesses, MRSA Skin infections You have been treated today for a skin boil or abscess. A boil is an infection under the skin that causes a painful pus filled lump. Boils start when bacteria infect a hair follicle, the place where a hair starts to grow. The most common places that boils develop are on the face, neck, armpits, breasts, groin and buttocks. When they are small they can often be treated at home, but they can grow quickly, become very painful, and require medical attention. Many of these infections are staph infections. Staph is a type of bacteria that commonly lives on skin. As many as 1 out of 3 people have staph that lives on their skin. Usually, it causes no problems,but if there is a cut or scrape, it can cause an infection. You have been treated today for an infection thought to be caused by MRSA, (pronounced ???mursa?? ) which stands for methicillin resistant staph aureus. MRSA can be very difficult to treat. The antibiotics that were once used for skin infections do not work on MRSA, so alternative medications must be prescribed. Return to the Emergency Department if: Your redness, pain, or swelling gets a lot worse You are unable to get your antibiotics, or are vomiting them up or you can???t take them You are feeling more ill, weak or lightheaded You start to run a new fever (temperature >101) Anything else about the infection worries or concerns you Treatment: Incision and Drainage (opening the boil with a scalpel to help the pus drain) or needle aspiration (removing pus with a syringe) is sometimes needed for larger abscesses. A wick or packing is sometimes put in the wound to encourage ongoing drainage of infection from the area. Please leave it in placefor as long as instructed by your care provider or until your follow up wound check in 48 hours. Start your antibiotics right away, and take them as prescribed. Be sure to finish the whole prescription, even if you are better. Apply a heating pad, warm packs, or warm water soaks to the infected area for 15 minutes at a time,at least 3 times a day. Do not use a heating pad on your feet or legs if you have diabetes. Do not sleep with a heating pad on, since this can cause ge or skin injury. Raise the affected area above the level of your heart as much as possible in the first 1-2 days. Pain medication-- Take a pain medication such as acetaminophen (Tylenol??), ibuprofen (Advil??, Nuprin ??) or naproxen (Aleve??). If you have been given a narcotic (such as codeine, hydrocodone, or oxycodone) do not drive for four hours after you have taken it. If the narcotic contains acetaminophen (Tylenol), do not take Tylenol with it. All narcotics will cause constipation, so eat a high fiber diet. Information about MRSA How do you catch MRSA? By touching a person who has MRSA on his or her skin By being nearby when a person with MRSA breathes, coughs, or sneezes By touching a table, handle or other surface that has the germ on it If the germ is on your skin and you cut yourself or have another injury, you can get infected How do I know if I have a MRSA infection? MRSA most commonly causes skin infections such as boils, red tender lumps that contain pus. Your physician may recognize MRSA from the appearance of your infection. Sometimes, your doctor may swab your skin or the drainage from a boil to test for MRSA or otherbacteria. Can MRSA be treated? Yes, certain medications are still effective in treating MRSA infections. It isvery important that you follow the directions exactly. Take ALL the pills you are given, even if youfeel better before you finish the pills. If you do not take them all, the germ could come back even stronger and be harder to treat next time. Is there any way to prevent MRSA? Wash your hands frequently with soap and water Do not share towels, washcloths, razors or other personal care items Wipe down gym equipment before and after you use it If you develop a similar infection in the future, you can try to treat it at home: Apply warm compresses to the affected area to promote drainage Wash hands frequently to prevent spread of infection Keep affected area covered to prevent spread of infection Never squeeze or pop boils When to seek medical attention for boils: You develop a fever The area around the boil becomes red or red streaks develop Your pain becomes severe You develop swollen lymph nodes You have diabetes, a heart murmur, an immune disease like HIV or AIDS, you take corticosteroids fora medical condition, you are on chemotherapy You develop a boil or abscess on your face, near your spine or near your rectal opening Remember that you can always come back to the Emergency Department if you are not able to see your regular doctor in the amount of time listed above, if you get any new symptoms, or if there is anything that worries you. AttachmentsThe following attachments cannot be sent through Care Everywhere. BRONCHITIS WITH WHEEZING (ADULT) ([place])DIET, VOMITING OR DIARRHEA [6YR-ADULT] ([place])documented in this encounter Medications at Time of Discharge Medication Sig Dispensed Refills Start Date End Date doxycycline (VIBRAMYCIN) Take 1 capsule 20 capsule 0 014 08/16/2013 100 MG capsule (100 mg) by mouth 2 times daily for 10 days ondansetron (ZOFRAN ODT) 4 Take 1-2 tablets 12 tablet 0 08/09/2013 MG disintegrating tablet (4-8 mg) by mouth every 8 hours as needed for nausea albuterol (ALBUTEROL) 108 Inhale 2 puffs 1 Inhaler 0 201309/10/2013 (90 BASE) MCG/ACT inhaler into the lungs every 4 hours as needed (shortness of breath, cough) metFORMIN (GLUCOPHAGE-XR) Take 2 tablets by 180 tablet 1 09/10/2013 500 MG 24 hr mouth 2 times tabletIndications: DM daily (with (diabetes mellitus) (H) meals). metoclopramide (REGLAN) 5 Take 1-2 tablets 30 tablet 0 07/1409/10/2013 MG tablet (5-10 mg) by mouth every 6 hours as needed (nausea) ondansetron (ZOFRAN) 4 MG Take 1 tablet (4 18 tablet 0 07/1309/10/2013 tabletIndications: Nausea mg) by mouth every 6 hours as needed for nausea pantoprazole (PROTONIX) 40 Take 1 tablet (40 90 tablet 1 09/10/2013 MG enteric coated mg) by mouth daily tabletIndications: PUD Take 30-60 minutes (peptic ulcer disease), before a meal. Esophageal reflux, Upper abdominal pain ranitidine (ZANTAC) 150 MG Take 1 tablet (150 60 tablet 1 0 07/26/2013 09/10/2013 tabletIndications: PUD mg) by mouth 2 (peptic ulcer disease), times daily Esophageal reflux, Upper abdominal pain documented as of this encounter ED Notes Christine Rosen MD - 08/05/2013 11:51 PM CDT History Chief Complaint: Vomiting, Diarrhea, and Wound Check HPI Kaiden Reyna is a 38 year old male, with a history of MRSA, cellulitis, and type II diabetes, whopresents with vomiting, diarrhea, and wound check. The patient reports that he has been experiencingnausea, vomiting, and diarrhea for the past month. He notes that he has lost 15-20 lbs since the onset of these symptoms, secondary to his inability to keep down PO. The patient has been taking Zofran intermittently but has no more medications at home. He reports having an EGD these past few days. He has been unable to keep his medications down, secondary to vomiting and thinks this is why his blood sugars have been a little elevated. He reports that he has a history of MRSA, and he noticed a wound similar to previous MRSA infectionsappearing on his left medial thigh 2 days ago. The patient has took Bactrim 2 hours ago, with no change in the wound's appearance. He states that he has also been generalized weakness, cough, fatigue, and wheezing. He has no history of asthma. The patient denies any other physical concerns today. Allergies: Penicillins Vancomycin Medications: Zantac Protonix Zofran Metformin Past Medical History: Hyperthyroidism Cellulitis Diabetes, type II Gastric ulcer MRSA Past Surgical History: GI surgery Combined esophagoscopy, gastroscopy, and duodenoscopy with biopsy Family History: Mother - lupus, CAD, autoimmune hepatitis, liver disease Sister - uterine cancer Maternal Grandfather - lung cancer Maternal Grandmother - autoimmunize hepatitis Paternal Grandmother - liver disease, diabetes Paternal Grandfather - diabetes, CAD Social History: Marital status: Tobacco use: Never Alcohol use: No Review of Systems Constitutional: Positive for appetite change, fatigue and unexpected weight change. Respiratory: Positive for cough and wheezing. Gastrointestinal: Positive for nausea, vomiting and diarrhea. Skin: Positive for wound. Neurological: Positive for weakness. All other systems reviewed and are negative. Physical Exam First Vitals: BP: 140/75 mmHg Heart Rate: 89 Temp: 98.3 ??F (36.8 ??C) Resp: 20 Height: 177.8 cm (5' 10) Weight: 115.667 kg (255 lb) SpO2: 97 % Physical Exam General: Cooperative, appears tired but not lethargic Eyes: Sclera white; Pupils are equal and round ENT: External ears and nares normal CV: Regular rate and rhythm, No murmur Resp: Diffuse expiratory wheezing worst in upper left lung Coughing with deep inspiration GI: Abdomen is soft, non-tender, non-distended MS: Moves all extremities Skin: Erythema with central 0.5cm induration on left inner thigh. Neuro: Speech is normal and fluent. No apparent deficit. Emergency Department Course Imaging: XR Chest: No infiltrate. Per Dr. Rosen. The patient was informed of these findings. Laboratory: CMP: Cr 0.95 (WNL), Glucose 123 (H), Albumin 3.6 (L), Protein 6.7 (L), otherwise WNL CBC: WBC 7.1 (WNL), HGB 13.4 (WNL), PLT 176 (WNL), HCT 38.3 (L), otherwise WNL Interventions: Rocephin, 1 g, IV Reglan, 10 mg, IV Duoneb, 3 mL, Neb ED Course: The patient was roomed. 11:51 PM The patient's medical charts were reviewed and I examined the patient. I discussed the plan of care with the patient which included the above imaging, laboratory work, procedure, and interventions. IV was started. Blood was drawn. X-ray of the chest was performed. Soft tissue ultrasound was performed,per the above procedure note. Findings and plan explained to the patient. Patient discharged home with instructions regarding supportive care, medications, and reasons to return. The importance of close follow-up was reviewed. The patient was prescribed Albuterol, Doxycycline, Zofran ODT, and Reglan. Impression & Plan Medical Decision Making: Mr. Reyna is here with several different symptoms. Regarding the area of skin redness,he clearly hascellulitis at this point, and he may be developing an abscess. However, this is too small at this point to consider draining, and he will be started on antibiotics for this. Due to difficulty with PO intake recently, he received ceftriaxone in the department. The patient will be started on Doxycyclinefor MRSA coverage. I discussed precautions with him as far as limiting esophageal irritation from this medication. With his shortness of breath and cough, he is wheezing on exam. This is consistent with bronchitis, as chest XR shows no pneumonia. He felt improved after a nebulizer treatment here, and he will be discharged with an albuterol inhaler. Although I would normally prescribe steroids for this etiology, but he has diabetes and a current skin infection and the steroids would worsen both of these conditions. I discussed the fact that I am not using this medication with the patient, and he indicates understanding. Regarding his vomiting and diarrhea, chart review reveals that he has been undergoing multiple evaluations for this, including a recent EGD. It is possible that some of this could be related to gastroparesis or as of now undiagnosed dietary intolerance. Labs do not demonstrate electrolyte abnormalities or DKA. He is being discharged with Zofran and Reglan to manage these symptoms and allow him to keep down the medications in order to treat his infection. The patient will return to the ED immediatelyfor any spreading redness or other concerns. Diagnosis: 1. Cellulitis and abscess of leg (682.6). 2. Bronchitis (490). 3. Vomiting (787.03). I, Jeanine Garcia, am serving as a scribe on 08/05/2013 at 11:51 PM to personally document services performed by Dr. Rosen based on my observations and the provider's statements to me. Jeanine Garcia 08/05/2013 [facility] EMERGENCY DEPARTMENT Christine Rosen MD 08/06/13 0238 Newton Cochran RN - 08/05/2013 11:47 PM CDT Patient stated that he has N/V/D that has been going on for a month. Patient stated that he is here for treatment for MRSA cellulitis on his left leg. documented in this encounter Plan of Treatment Not on filedocumented as of this encounter Procedures Procedure Name Priority Date/Time Associated Comments Diagnosis XR CHEST 2 VIEWS STAT 08/06/2013 12:33 Results for this AM CDT procedure are i n the results section. CBC WITH PLATELETS & STAT 08/06/2013 12:15 Res ults for this DIFFERENTIAL AM CDT procedure are i n the results section. COMPREHENSIVE STAT 08/06/2013 12:15 Results fo r this METABOLIC PANEL AM CDT procedure ar e in the results section. documented in this encounter Results XR Chest 2 Views (08/06/2013 12:33 AM CDT) Anatomical Region Laterality Modality Chest Computed Radiography Specimen (Source) Anatomical Location Collection Method / Collectio n Time Received Time / Laterality Volume Impressions 08/06/2013 7:27 AM CDT IMPRESSION: ??Negative. CESAR NEGRO MD Narrative 08/06/2013 7:27 AM CDT XR CHEST 2 VW ??08/06/2013 12:33 AM HISTORY: ??Wheezing. COMPARISON: ??None. Procedure Note Cesar Negro MD - 4 XR CHEST 2 VW 08/06/2013 12:33 AM HISTORY: Wheezing. COMPARISON: None. IMPRESSION IMPRESSION: Negative. CESAR NGERO MD Christine Rosen MD IMG DIAGNOSTIC IMAGING ORDER TOSIN (ABNORMAL) Comprehensive metabolic panel (08/06/2013 12:15 AM CDT) Analysis Performed At Patho logist Time Signature Sodium 139 133 - 144 [facility] mmol/L [facility] Potassium 3.7 3.4 - 5.3 [facility] mmol/L [facility] Chloride 100 94 - 109 [facility] mmol/L [facility] Carbon Dioxide 27 20 - 32 [facility] mmol/L [facility] Anion Gap 12 6 - 17 [facility] mmol/L [facility] Glucose 123 (H) 60 - 99 [facility] mg/dL [facility] Urea Nitrogen 15 5 - 24 [facility] mg/dL [facility] Creatinine 0.95 0.66 - [facility] 1.25 mg/dL [facility] GFR Estimate 90 >60 [place] mL/min/1.[address] LAB GFR Estimate If >90 >60 [place] Black mL/min/1.[address] LAB Calcium 8.8 8.5 - 10.4 [place] mg/dL [facility] Bilirubin Total 0.5 0.2 - 1.3 [place] mg/dL [facility] Albumin 3.6 (L) 3.9 - 5.1 [place] g/dL [facility] Protein Total 6.7 (L) 6.8 - 8.8 [place] g/dL [facility] Alkaline 55 40 - 150 [place] Phosphatase U/L [facility] ALT 45 0 - 70 U/L [facility] AST 39 0 - 45 U/L [facility] Specimen Anatomical Collection Method Collection Time Receive d Time (Source) Location / / Volume Laterality Blood specimen 08/06/2013 12:15 4 (specimen) AM CDT 12:24 AM CDT Christine Rosen MD LAB - BLOOD ORDERABLES Performing Organization Address City/State/ZIP Code Phon e Number [place] [address] [address] [place], [place] [address] [facility] (ABNORMAL) CBC with platelets differential (08/06/2013 12:15 AM CDT) [facility] Method Time Signature WBC 7.1 4.0 - [place] 11.0 [facility] 10e9/L [facility] RBC Count 4.40 4.4 - 5.9 [place] 10e12/L [facility] Hemoglobin 13.4 13.3 - [facility] 17.7 g/dL [facility] Hematocrit 38.3 (L) 40.0 - [facility] 53.0 % [facility] MCV 87 78 - 100 [place] fl [facility] MCH 30.5 26.5 - [facility] 33.0 pg [facility] MCHC 35.0 31.5 - [facility] 36.5 g/dL [facility] RDW 13.2 10.0 - [facility] 15.0 % [facility] Platelet Count 176 150 - 450 [place] 10e9/L [facility] Diff Method Automated [facility] LAB % Neutrophils 60.0 % [facility] % Lymphocytes 31.2 % [facility] % Monocytes 6.5 % [facility] % Eosinophils 2.1 % [facility] % Basophils 0.1 % [facility] % Immature 0.1 % [place] Granulocytes [facility] Absolute 4.3 1.6 - 8.3 [place] Neutrophil 10e9/L [facility] Absolute 2.2 0.8 - 5.3 [place] Lymphocytes [address] [place] [address] LAB Absolute 0.5 0.0 - 1.3 [place] Monocytes 10e9/L [facility] Absolute 0.2 0.0 - 0.7 [place] Eosinophils 10eL [facility] Absolute 0.0 0.0 - 0.2 [place] Basophils [address] [place] [address] LAB Abs Immature 0.0 0 - 0.4 [place] Granulocytes [address] [place] [address] LAB Specimen Anatomical Collection Method Collection Time Receive d Time (Source) Location / / Volume Laterality Blood specimen 08/06/2013 12:15 4 (specimen) AM CDT 12:24 AM CDT Christine Rosen MD LAB - BLOOD ORDERABLES Performing Organization Address City/State/ZIP Code Phon e Number [address] [facility] documented in this encounter Visit Diagnoses Diagnosis Cellulitis and abscess of leg - Primary Cellulitis and abscess of leg, except fo ot Bronchitis Bronchitis, not specified as acute or ch ronic Vomiting Vomiting alone documented in this encounter Administered Medications Inactive Administered Medications - up to 3 most recent administrations Medication Order MAR Action Action Date Dose Rate Site cefTRIAXone (ROCEPHIN) 1 g vial to New Bag 08/06/2013 12:46 AM CDT 1 g attach to IVPB STAT, 1 g, Intravenous, ONCE, On Mon08/06/13 at 0030, For 1 dose, Indications: Skin and Soft Tissue Infection ipratropium - albuterol 0.5 mg/2.5 mg/3 mL Given 08/06/2013 12:0 7 AM CDT 3 mLs (DUONEB) nebulizer solution 3 mL 3 mL, Nebulization, ONCE, On 08/06/13 at 0000, For 1 dose metoclopramide (REGLAN) injection 10 mg Given 08/06/2013 12:08 AM CDT 10 mg 10 mg, Intravenous, ONCE, On 08/06/13 at 0000, For 1 dose, Avoid use if patient has full bowel obstruction or perforation. documented in this encounter Active and Recently Administered Medications Times are shown in CDT. Scheduled Medication Order 08/04/2013 08/05/2013 08/06/2013 cefTRIAXone (ROCEPHIN) 1 g vial to attach to IVPB (COMPLETED) 0046 (New Bag - Provider: Ivet Crisostomo RN)0141 (Stopped - Provider: Ivet Crisostomo RN) STAT, 1 g, Intravenous, ONCE, On Tue 07/14 09/25 at 0030, For 1 dose, Indications: Skin and Soft Tissue Infection ipratropium - albuterol 0.5 mg/2.5 mg/3 mL (DUONEB) nebulizer solution 3 mL (COMPLETED) 0007 (Given - Provid er: Ivet Crisostomo RN) 3 mL, Nebulization, ONCE, 08/06/13 at 0000, For 1 dose metoclopramide (REGLAN) injection 10 mg (COMPLETED) 0008 (Given - Provider: Ivet Crisostomo RN) 10 mg, Intravenous, ONCE, 08/06/13 at 0000, For 1 dose, Avoid use if patient has full bowel obstruction or perforation. documented in this encounter Additional Health Concerns Infection Onset Date Last Indicated Resolved Time MRSA-Contact IsolationComment: Skin 12-25-2012 01/02/2013 documented as of this encounter Care Teams Special Ed Assistant Relationship Specialty Start Date End Date Jensen Melendez, PCP - General Student in organized 10/31/12 01/13/14 [place] [address] education/[place] [address] documented as of this encounter
--- OUTSIDE RECORDS SUMMARY | 2022-04-14 09:13 | XMS_ITS | Encounter Summary ---
:1975 Author Organization [facility] Address [address] [place] [address]. [place] [address] Care Team Providers Name Role Phone Jensen Melendez MD Primary Care Provider [phone] Reason for Visit Reason Onset Date Comments ER F/U 08/05/2013 Bronchitis, Cellulit is And Abscess Of Leg, Vomiting, 4 Encounter Details Date Type Department Care Team Description 08/07/2013 Telephone [facility] Nadira Miles ER F/U (Bronchitis, [address] [facility] MD Osiel [place] [address] [facility] Of Leg, Vomiting, 4) [phone] [address] (Wo rk) Social History Tobacco Use Types Packs/Day Years Used Date Smoking Tobacco: Never Smokeless Tobacco: Never Alcohol Use Standard Drinks/Week Comments No 0 (1 standard drink = 0.6 oz pure alcoho l) Sex Assigned at Date Recorded Not on file documented as of this encounter Miscellaneous Notes Telephone Encounter - Alice Dye RN - 08/08/2013 9:32 AM CDT ED / Discharge Outreach Protocol Patient Contact Attempt # 3 Was call answered? No. CASA Jenkins Message handled by Nurse Triage. Telephone Encounter - Alice Dye RN - 08/07/2013 6:39 PM CDT ED / Discharge Outreach Protocol Patient Contact Attempt # 2 Was call answered? No. Left message on voicemail with information to call me back. CASA Jenkins Message handled by Nurse Triage. Telephone Encounter - Araceli Villeda RN - 08/07/2013 2:57 PM CDT ED / Discharge Outreach Protocol Patient Contact Attempt # 1 Was call answered? No. Left message on voicemail with information to call back to clinic. Araceli Villeda RN Telephone Encounter - Rosita Patrick - 08/07/2013 10:12 AM CDT Please contact patient for Emergency Department follow up. [phone] (home) none (work) Visit date: 08/05/13 Diagnosis listed:Bronchitis, Cellulitis And Abscess Of Leg, Vomiting, Number of visits in past 12 months:4 documented in this encounter Plan of Treatment Not on filedocumented as of this encounter Visit Diagnoses Not on filedocumented in this encounter Additional Health Concerns Infection Onset Date Last Indicated Resolved Time MRSA-Contact IsolationComment: Skin 12-25-2012 01/02/2013 documented as of this encounter Care Teams Rodeo Rider Relationship Specialty Start Date End Date Jensen Melendez, NATALY - General Student in organized 10/31/12 01/13/14 [place] [address] education/training program [place], [place] [id number] documented as of this encounter
--- OUTSIDE RECORDS SUMMARY | 2022-04-14 09:13 | XMS_ITS | Encounter Summary ---
:1975 Author Organization [place] Address [address] [place] [address] Care Team Providers Name Role Phone Jensen Melendez MD Primary Care Provider [phone] Reason for Visit Auth/Cert - Closed Specialty Diagnoses / Procedures Referred By Contact Refer red To Contact Gastroenterology Diagnoses upper abdominal pain, reflux Rh Endoscopy Procedures COMBINED ESOPHAGOSCOPY, GASTROSCOPY, DUODENOSCOPY (EGD) [address] [place] [address] Phone: Fax: Referral ID Status Reason Start Date Expiration Date Visits Requ ested Visits Authorized [id number] Closed 1 1 Encounter Details Date Type Department Care Team Description 07/30/2013 Hospital Encounter [facility] Ra Mayer , Endoscopy Nevin RAMIREZ [address] [place], [place] GASTROINTESTINAL [id number] [address] [phone] [place], [place] [address] (Wo rk) Social History Tobacco Use Types Packs/Day Years Used Date Smoking Tobacco: Never Smokeless Tobacco: Never Alcohol Use Standard Drinks/Week Comments No 0 (1 standard drink = 0.6 oz pure alcoho l) Sex Assigned at Date Recorded Not on file documented as of this encounter Last Filed Vital Signs Vital Sign Reading Time Taken Comments Blood Pressure 121/73 07/30/2013 9:00 AM CDT Pulse - - Temperature - - Respiratory Rate 15 07/30/2013 8:15 AM CDT Oxygen Saturation 93% 07/30/2013 9:00 AM CDT Inhaled Oxygen Concentration - - Weight - - Height - - Body Mass Index - - documented in this encounter Medications at Time of Discharge Medication Sig Dispensed Refills Start Date End Date metFORMIN (GLUCOPHAGE-XR) Take 2 tablets by 180 tablet 1 09/10/2013 500 MG 24 hr mouth 2 times daily tabletIndications: DM (with meals). (diabetes mellitus) (H) ondansetron (ZOFRAN) 4 MG Take 1 tablet (4 18 tablet 0 07/1309/10/2013 tabletIndications: Nausea mg) by mouth every 6 hours as needed for nausea pantoprazole (PROTONIX) Take 1 tablet (40 90 tablet 1 07/2609/10/2013 40 MG enteric coated mg) by mouth daily tabletIndications: PUD Take 30-60 minutes (peptic ulcer disease), before a meal. Esophageal reflux, Upper abdominal pain ranitidine (ZANTAC) 150 Take 1 tablet (150 60 tablet 1 07/1309/10/2013 MG tabletIndications: PUD mg) by mouth 2 (peptic ulcer disease), times daily Esophageal reflux, Upper abdominal pain documented as of this encounter Progress Notes Ra Mayer MD - 07/31/2013 11:27 AM CDT Quick Note: Pt informed of results. documented in this encounter H&P Notes Ra Mayer MD - 07/30/2013 8:01 AM CDT Pre-Endoscopy History and Physical Daniel Cheema Date of : 1975 Age: [age] year old Date of Procedure: 07/30/2013 Primary care provider: Jensen Melendez Type of Endoscopy: Gastroscopy with possible biopsy, possible dilation Reason for Procedure: vomiting Type of Anesthesia Anticipated: Conscious Sedation HPI: Daniel is a 38 year old male who [...] ??? Hyperthyroidism ??? Diabetes mellitus, type 2 Past Medical History Diagnosis Date ??? Diabetes mellitus ??? Thyroiditis ??? Cellulitis Frequent skin infections and boils since childhood No past surgical history on file. History Substance Use Topics ??? Smoking status: [...] Start Date End Date Taking? Authorizing Provider ranitidine (ZANTAC) 150 MG tablet Take 1 tablet (150 mg) by mouth 2 times daily 07/26/13 Karel Carbajal MD pantoprazole (PROTONIX) 40 MG enteric coated tablet Take 1 tablet (40 mg) by mouth daily Take 30-60 minutes before a meal. 07/26/13 Karel Carbajal MD ondansetron (ZOFRAN) 4 MG tablet Take 1 tablet (4 mg) by mouth every 6 hours as needed for nausea 07/26/13 Karel Carbajal MD metFORMIN (GLUCOPHAGE-XR) 500 MG 24 hr tablet Take 2 tablets by mouth 2 times daily (with meals). 11/07/12 Jensen Melendez MD Allergies Allergen Reactions ??? Penicillins Anaphylaxis ??? Vancomycin Anaphylaxis REVIEW OF SYSTEMS: 5 point ROS negative except as noted above in HPI, including Gen., Resp., CV, GI & system review. PHYSICAL EXAM: There were no vitals taken for this visit. Estimated Body mass index is 37.71 kg/(m^2) as calculatedfrom the following: Height as of 07/26/13: 5' 9(1.753 m). Weight as of 07/26/13: 255 lb 8 oz(115.894 kg). GENERAL APPEARANCE: alert, and oriented MENTAL STATUS: alert AIRWAY EXAM: Mallampatti Class I (visualization of the soft palate, fauces, uvula, anterior and posterior pillars) RESP: lungs clear to auscultation - no rales, rhonchi or wheezes CV: regular rates and rhythm DIAGNOSTICS: Not indicated IMPRESSION ASA Class 2 - Mild systemic disease PLAN: Plan for Gastroscopy with possible biopsy, possible dilation. We discussed the risks, benefits and alternatives and the patient wished to proceed. The above has been forwarded to the consulting provider. Signed Electronically by: Ra Mayer MD July 30, 2013 documented in this encounter Plan of Treatment Not on filedocumented as of this encounter Procedures Procedure Name Priority Date/Time Associated Diagnosis Comme nts SURGICAL PATHOLOGY Routine 07/30/2013 8:10 AM Res ults for this EXAM CDT procedure are i n the results section. UPPER GI ENDOSCOPY Routine 07/30/2013 7:59 AM Res ults for this CDT procedure are i n the results section. GLUCOSE BY METER Routine 07/30/2013 7:58 AM Resul ts for this CDT procedure are i n the results section. ESOPHAGOGASTRODUODE 07/30/2013 7:50 AM abdominal pain NOSCOPY, WITH CDT BIOPSY Special Needs Ref: Solomon documented in this encounter Results Surgical pathology exam (07/30/2013 8:10 AM CDT) Component Value Ref Test Analysis Performed At [facility] Range Method Time Signature Copath Report Patient Name: DANIEL CHEEMA MR#: [id number] Specimen #: [id number] Collected: 07/30/2013 Received: 07/30/2013 Reported: 07/31/2013 09:58 Ordering Phy(s): RA MAYER Additional Phy(s): JENSEN MELENDEZ SPECIMEN(S): Gastric biopsy, random FINAL DIAGNOSIS: Random gastric biopsies. -Fragments of gastric body-type mucosa without significant i nflammation or specific findings. ??Negative for Helicobacter, dysplasia , and malignancy. Electronically signed out by: Shahid Garcia M.D. CLINICAL HISTORY: Upper abdominal pain, reflux. Rule out Helicobacter. GROSS: Labeled random gastric biopsy rule out Helicobacter are fi ve fragments of tissue aggregating to 0.5 x 0.4 x 0.1 cm. ??Entirely subm itted. (Dictated by: Shahid Garcia MD 07/30/2013 09:18 AM) MICROSCOPIC: There is no significant inflammation or specific findings. ? ?Features of reactive gastropathy are not identified. (Dictated by: Shahid Garcia MD 07/31/2013 08:58 AM) CPT Codes: A: 32828-VT5 TESTING LAB LOCATION: [address] ??[address] COLLECTION SITE: Client: [facility] Specimen Anatomical Collection Method Collection Time Receive d Time (Source) Location / / Volume Laterality 07/30/2013 8:10 AM 4 9:08 CDT AM CDT Ra Mayer MD [facility] Performing Organization Address City/State/ZIP Code Phon e Number COPATH UPPER GI ENDOSCOPY (07/30/2013 7:59 AM CDT) Component Value Ref Test Analysis Performed At [facility] Method Time Signature Upper GI [facility] RADIO LOGY Endoscopy RESULTS Patient Name: Daniel Cheema ? Procedure Date: 07/30/2013 7:59:56 AM ? Date of : 1975 ? Admit Type: Outpatient ? Age: 38 ? Gender: Male ? Attending MD: Ra Cedeno MD ? Procedure: ?Upper GI endoscopy Indications: ?Epigastric abdominal pain Providers: ?Ra Mayer MD Referring MD: ? Karel Carbajal MD, Jensen Melendez Medicines: ?Midazolam 4 mg IV, Fentanyl 100 micrograms IV, ?Cetacaine spray Complications: ?No immediate complications Procedure: ?Pre-Anesthesia Assessment: [...] identification and ?proposed procedure were verified by in the ?procedure room. Mental Status Examination: alert ?and oriented. Airway Examination: normal ?oropharyngeal airway and neck mobility. Respiratory ?Examination: clear to auscultation. CV Examination: ?normal. Prophylactic Antibiotics: The patient does ?not require prophylactic antibiotics. Prior ?Anticoagulants: The patient has taken no previous ?anticoagulant or antiplatelet agents. ASA Grade ?Assessment: II - A patient with mild systemic ?disease. After reviewing the risks and benefits, ?the patient was deemed in satisfactory condition to ?undergo the procedure. The anesthesia plan was to ?use moderate sedation / analgesia (conscious ?sedation). Immediately prior to administration of ?medications, the patient was re-assessed for ?adequacy to receive sedatives. The heart rate, ?respiratory rate, oxygen saturations, blood ?pressure, adequacy of pulmonary ventilation, and ?response to care were monitored throughout the ?procedure. The physical status of the patient was ?re-assessed after the procedure. ?After obtaining informed consent, the endoscope was ?passed under direct vision. Throughout the ?procedure, the patient's blood pressure, pulse, and ?oxygen saturations were monitored continuously. The ?Endoscope was introduced through the mouth, and ?advanced to the second part of duodenum. The upper ?GI endoscopy was accomplished without difficulty. ?The patient tolerated the procedure well. ? Findings: ? The esophagus was normal. The entire examined stomach was normal. ? Biopsies were taken with a cold forceps for histolo gy. Patchy mildly ? erythematous mucosa without active bleeding and with no stigmata of ? bleeding was found in the duodenal bulb. ? Impression: ? - Normal esophagus. ?- Normal stomach. T his was biopsied. ?- Erythematous duoden opathy. Recommendation: ? - Await pathology results. ? Electronically signed by Ra Mayer MD Ra Mayer MD Signed Date: 07/30/2013 8:20:18 AM Number of Addenda: 0 I was physically present for the entire viewing portion of t he exam. Note Initiated On: 07/30/2013 7:59:56 AM Scope Withdrawal Time: 0 hours 0 minutes 0 seconds Scope Withdrawal Time: 0 hours 0 minutes 0 seconds Total Procedure Duration: 0 hours 4 minutes 52 seconds Total Procedure Duration: 0 hours 4 minutes 52 seconds Specimen (Source) Anatomical Collection Method Collection Time Re ceived Time Location / / Volume Laterality 07/30/2013 7:59 AM CDT Karel Carbajal MD PROCEDURES Performing Organization Address City/State/ZIP Code Phon e Number RADIOLOGY RESULTS (ABNORMAL) Glucose by meter (07/30/2013 7:58 AM CDT) P athologist Signature Glucose 112 (H) 60 - 99 POINT OF CARE mg/dL TEST, GLUCOSE Specimen Anatomical Collection Method Collection Time Receive d Time (Source) Location / / Volume Laterality 07/30/2013 7:58 AM 4 8:00 CDT AM CDT [facility] Performing Organization Address City/State/ZIP Code Phon e Number FV POINT OF CARE TEST, GLUCOSE POINT OF CARE TEST, GLUCOSE documented in this encounter Visit Diagnoses Not on filedocumented in this encounter Active and Recently Administered Medications Times are shown in CDT. PRN Medication Order 07/28/2013 07/29/2013 07/30/2013 benzocaine (HURRICAINE/TOPEX) 20 % spray (CANCELED) 0800 (Given - Provider: Ra Mayer MD) PRN, moderate pain, Starting Mon07/30/13 at 0800, Intra-procedur e fentaNYL (SUBLIMAZE) injection (CANCELED) 0800 (Given - Provider: Ra Mayer MD) PRN, Starting Mon07/30/13 at 0800, moderate to severe pain, Intr a-procedure midazolam (VERSED) injection (CANCELED) 0800 (Given - Provider: Ra Mayer MD)0804 (Given - Provider: Rizwana Ramirez RN - Comment: VORB to Dr. Mayer/WW) PRN, Starting Mon07/30/13 at 0800, anxiety, Intra-procedure documented in this encounter Additional Health Concerns Infection Onset Date Last Indicated Resolved Time MRSA-Contact IsolationComment: Skin 12-25-2012 01/02/2013 documented as of this encounter Care Teams Sodium Methylate Operator Relationship Specialty Start Date End Date Jensen Melendez, PCP - General Student in organized 10/31/12 01/13/14 [place] [address] education/[place] [address] documented as of this encounter
--- OUTSIDE RECORDS SUMMARY | 2022-04-14 09:13 | XMS_ITS | Encounter Summary ---
:1975 Author Organization [place] Address [address] [place] [address]. [place] [address] Care Team Providers Name Role Phone Jensen Melendez MD Primary Care Provider [phone] Reason for Visit Reason Onset Date Comments Erroneous encounter-disregard 08/16/2013 Encounter Details Date Type Department Care Team Description 08/13/[address] [facility] Eliseo Banegas, ADRIANNA [place] MD ENCOUNTER--DISREGARD [address] [facility] (Primary Dx) [place] [phone] [place] [phone] [place] [address] Social History Tobacco Use Types Packs/Day Years Used Date Smoking Tobacco: Never Smokeless Tobacco: Never Alcohol Use Standard Drinks/Week Comments No 0 (1 standard drink = 0.6 oz pure alcoho l) Sex Assigned at Date Recorded Not on file documented as of this encounter Progress Notes Zelalem Biswas MD - 08/16/2013 9:40 PM CDT This encounter was opened in error. Please disregard. documented in this encounter Plan of Treatment Not on filedocumented as of this encounter Visit Diagnoses Diagnosis ERRONEOUS ENCOUNTER--DISREGARD - Primary documented in this encounter Additional Health Concerns Infection Onset Date Last Indicated Resolved Time MRSA-Contact IsolationComment: Skin 12-25-2012 01/02/2013 documented as of this encounter Care Teams Guardian Family Member Relationship Specialty Start Date End Date Jensen Melendez, PCP - General Student in [facility] 10/31/12 01/13/14 [place] [address] education/[place] [address] documented as of this encounter
--- OUTSIDE RECORDS SUMMARY | 2022-04-14 09:13 | XMS_ITS | Encounter Summary ---
:1975 Author Organization [place] Address [address] [facility] [place] [address] Care Team Providers Name Role Phone Jensen Melendez MD Primary Care Provider [phone] Reason for Visit Auth/Cert - Closed Specialty Diagnoses / Procedures Referred By Contact Refer red To Contact Gastroenterology Diagnoses upper abdominal pain, reflux Rh Endoscopy Procedures COMBINED ESOPHAGOSCOPY, GASTROSCOPY, DUODENOSCOPY (EGD) [address] [place] [address] Phone: Fax: Referral ID Status Reason Start Date Expiration Date Visits Requ ested Visits Authorized [id number] Closed 1 1 Encounter Details Date Type Department Care Team Description 07/30/2013 Surgery [facility] Ra Mayer ESOP HAGOSCOPY, Endoscopy Nevin RAMIREZ GASTROSCOPY, DUODENOSCOPY [address] [place] (EGD) and gastric bx R/O [place], [place]STR[place]INTESTINAL [place] [address] [phone] [place], [place] [address] Surgery Details Date/Time Status Location OR Service Patient Class Case Case Trauma Class Type Case? 07/30/13 8:00 Posted [facility] GI GI A Gastroenterology Outpatient AM Panel 1 Procedure LRB Anes Op Region Wound Class Commen ts ESOPHAGOSCOPY, N/A Conscious Mouth II-Clean ESOPHAGOS COPY, GASTROSCOPY, Sedation Contaminated GASTROSCOP Y, DUODENOSCOPY (EGD) DUODEN OSCOPY (EGD) and gastric bx R/O and ga stric bx R/O H. Pylori/WW H. Pylori/WW Surgeon Surgeon Role Service Panel Ra Mayer MD Primary Gastroenterology 1 Special Needs Ref: Solomon documented in this encounter Social History Tobacco Use Types Packs/Day Years Used Date Smoking Tobacco: Never Smokeless Tobacco: Never Alcohol Use Standard Drinks/Week Comments No 0 (1 standard drink = 0.6 oz pure alcoho l) Sex Assigned at Date Recorded Not on file documented as of this encounter Last Filed Vital Signs Vital Sign Reading Time Taken Comments Blood Pressure 113/79 07/30/2013 8:30 AM CDT Pulse - - Temperature - - Respiratory Rate 15 07/30/2013 8:15 AM CDT Oxygen Saturation 92% 07/30/2013 8:30 AM CDT Inhaled Oxygen Concentration - - [...] Component Value Ref Test Analysis Performed At [facility] Method Time Signature Copath Report Patient Name: DANIEL CHEEMA MR#: [id number] Specimen #: [id number] Collected: 07/30/2013 Received: 07/30/2013 Reported: 07/31/2013 09:58 [...] MD 07/31/2013 08:58 AM) CPT Codes: A: 61801-ES2 TESTING LAB LOCATION: [address] ??[address] COLLECTION SITE: Client: [facility] Specimen Anatomical Collection Method Collection Time Receive d Time (Source) Location / / Volume Laterality 07/30/2013 8:10 AM 4 9:08 CDT AM CDT [facility] Organization Address City/State/ZIP Code Phon e Number COPATH UPPER GI ENDOSCOPY (07/30/2013 7:59 AM CDT) Component Value Ref Test Analysis Performed At [facility] Range Method Time Signature Upper GI [facility] RADIO LOGY Endoscopy RESULTS Patient Name: Daniel Cheema ? Procedure Date: 07/30/2013 7:59:56 AM ? Date of : 1975 ? Admit Type: Outpatient ? Age: 38 ? Gender: Male ? Attending MD: Ra Cedeno MD ? Procedure: ?Upper GI endoscopy Indications: ?Epigastric abdominal pain Providers: ?Ra Mayer MD Referring : ? Karel Carbajal MD, Jensen Melendez Medicines: [...] 8:00 CDT AM CDT Ra Mayer MD LAB - [facility] PO[facility] Performing Organization Address City/State/ZIP Code Phon e Number FV POINT OF CARE TEST, GLUCOSE POINT OF CARE TEST, GLUCOSE documented in this encounter Visit Diagnoses Not on filedocumented in this encounter Administered Medications Inactive Administered Medications - up to 3 most recent administrations Medication Order MAR Action Action Date Dose Rate Site benzocaine (HURRICAINE/TOPEX) 20 Given 07/30/2013 8:00 AM CDT 4 sprays % spray PRN, moderate pain (4-6), Starting on Mon07/30/13 at 0800, Intra-procedure fentaNYL (SUBLIMAZE) injection Given 07/30/2013 8:00 AM CDT 100 mcg PRN, moderate to severe pain, Starting on Mon07/30/13 at 0800, Intra-procedure midazolam (VERSED) injection Given 07/30/2013 8:04 AM CDT 2 mg PRN, anxiety, Starting on Mon07/30/13 at 0800, Intra-procedure Given 07/30/2013 8:00 AM CDT 2 mg documented in this encounter Active and Recently [...] Comment: VORB to Dr. Mayer/WW) PRN, Starting Tu07/30/13 at 0800, anxiety, Intra-procedure documented in this encounter Additional Health Concerns Infection Onset Date Last Indicated Resolved Time MRSA-Contact IsolationComment: Skin 12-25-2012 01/02/2013 documented as of this encounter Care Teams Patient Financial Specialist Relationship Specialty Start Date End Date Jensen Melendez PCP - General Student in organized 10/31/12 01/13/14 [place] [address] education/[place] [address] documented as of this encounter
--- OUTSIDE RECORDS SUMMARY | 2022-04-14 09:14 | XMS_ITS | Encounter Summary ---
:1975 Author Organization [place] Address [address] [place] [address]. [place] [address] Care Team Providers Name Role Phone Jensen Melendez MD Primary Care Provider [phone] Reason for Visit Reason Onset Date Comments Cellulitis 12/26/2012 Encounter Details Date Type Department Care Team Description 12/26/2012 Telephone [facility] Jensen Gonzalez, Cellulitis [address] [facility] [address] [address] [facility] [address] [place] [address] (Wo rk) Social History Tobacco Use Types Packs/Day Years Used Date Smoking Tobacco: Never Smokeless Tobacco: Never Alcohol Use Standard Drinks/Week Comments No 0 (1 standard drink = 0.6 oz pure alcoho l) Sex Assigned at Date Recorded Not on file documented as of this encounter Miscellaneous Notes Telephone Encounter - Hilda Rose - 12/26/2012 2:45 PM CDT Phone call from patient. States he was seen yesterday for I &D. Redness is spreading around the incision. He had marked it with a pen and has doubled in size. Pain is about the same, tender with pain meds on board. Does he need to wait on culture? Has had 3-4 doses of clindamycin. Stopped bactrim. Has a white bloody drainage. Denies fever. Wanting to know what is recommended? Consulted with CHRISTIANO Ivey/Plan : ER Patient informed of plan and verbalized understanding. Bonnie Rose RN Message handled by Nurse Triage with Huddle - provider name: CHRISTIANO Ivey. documented in this encounter Plan of Treatment Not on filedocumented as of this encounter Visit Diagnoses Not on filedocumented in this encounter Care Teams Sleeve Presser Operator Relationship Specialty Start Date End Date Jensen Melendez, PCP - General Student in organized 10/31/12 01/13/14 [place] [address] education/[place] [address] documented as of this encounter
--- OUTSIDE RECORDS SUMMARY | 2022-04-14 09:14 | XMS_ITS | Encounter Summary ---
:1975 Author Organization [facility] Address [address] [place] [address]. [place] [address] Care Team Providers Name Role Phone Jensen Melendez MD Primary Care Provider Reason for Visit Reason Comments Abscess f/u Encounter Details Date Type Department Care Team Description 10/31/2012 Office Visit [facility] Jensen Melendez s and Clifton Pierce MD abscess (Primary Dx) [address] [place] [address] [place] [id number] [address] [place] [address] (Wo rk) Social History Tobacco Use Types Packs/Day Years Used Date Smoking Tobacco: Never Smokeless Tobacco: Never Alcohol Use Standard Drinks/Week Comments No 0 (1 standard drink = 0.6 oz pure alcoho l) Sex Assigned at Date Recorded Not on file documented as of this encounter Last Filed Vital Signs Vital Sign Reading Time Taken Comments Blood Pressure 124/74 10/31/2012 2:03 PM CDT Pulse 80 10/31/2012 2:03 PM CDT Temperature 36.9 ??C (98.4 ??F) 10/31/2012 2:03 PM CDT Respiratory Rate - - Oxygen Saturation - - Inhaled Oxygen Concentration - - Weight 122.2 kg (269 lb 4.8 oz) 10/31/2012 2:03 PM CDT Height - - Body Mass Index 38.64 10/29/2012 1:44 PM CDT documented in this encounter Patient Instructions Patient InstructionsJensen Melendez MD - 10/31/2012 2:21 PM CDT 1) Continue course of doxycycline as previously prescribed. 2) May return to work without restrictions. 3) Continue to monitor wound for increasing erythema, redness or swelling. Call back to clinic should this worsen. 4) Return to clinic in 1 week to have wound rechecked. Jensen Melendez MD Medicine-Pediatrics PGY-2 documented in this encounter Progress Notes Jensen Melendez MD - 10/31/2012 2:06 PM CDT SUBJECTIVE: Kaiden Reyna is a 37 year old male who presents to clinic today for the following health issues: Hospital Followup: Hospital: [facility] Date of Admission: 10/26 Date of Discharge: 10/28 Reason for Admission: MRSA Current Status: improving on abx, not completely resolved. Post Discharge Medication Reconciliation Status: discharge medications reconciled, continue medications without change. HPI: Kaiden Reyna is a 37 year old male who presents to clinic today for follow-up of left lower arm cellulitis. The patient was recently hospitalized on 10/26 for cellulitis and at that point placed on IV antibiotics and later transitioned to oral antibiotics. Kaiden was then seen on 10/[address] De Luna where repeat inflammatory markers and blood cultures were drawn. The patient has completed a course oforal clindamycin and was then instructed to start doxycycline for 10 days. The patient states he is currently taking his doxycycline and that his wound appears to be improving. He states that the redness continues to improve, he is no longer having pain however he does have some mild drainage from the area. He states that he is wanting to go back to work. He denies any other fevers, chills, diarrhea or constipation. He denies any joint pain or stiffness. Of note the patient does report that he is having some increased sinus pressure and drainage in the past few days. ROS: 6 Point ROS is negative except per HPI. Objective: BP 124/74 Pulse 80 Temp 98.4 ??F (36.9 ??C) (Tympanic) Wt 269 lb 4.8 oz (122.154 kg) General: Patient sitting up in chair, NAD HEENT: NC/AT, sclera anicteric Lungs: CTA bilaterally, no wheezes. Heart: RRR, No m/r/g Skin: Left anterior wrist with a 1x2 cm erythematous, raised lesion with minor ulceration in the middle, minimal serous drainage from ulcer, not warm to touch, no pain to palpation. MSK: NO pain in wrist to passive or active range of movement. ASSESSMENT / PLAN: 682.9 Cellulitis and abscess (primary encounter diagnosis) Comment: Cellulitis appears to be improving as dimensions are down significantly since last clinic visit. Blood cultures show NGTD. Instructed patient to complete course of doxycyuline as previously prescribed and will recheck wound in 1 week. Of note, the patient does mention that he has Type 2 DM. He has not seen a provider recently as he is new to the area. Will have the patient back in 1 week andat that time check labs and discuss his diabetes management. Patient Instructions 1) Continue course of doxycycline as previously prescribed. 2) May return to work without restrictions. 3) Continue to monitor wound for increasing erythema, redness or swelling. Call back to clinic should this worsen. 4) Return to clinic in 1 week to have wound rechecked. Plan discussed with Dr. Cartagena. Jensen Melendez MD Medicine-Pediatrics PGY-2 I discussed this case in depth with Dr. Melendez and agree with the kumar components of the history, assessment and plan. Nadira Calabrese MD Internal Medicine/Pediatrics documented in this encounter Nursing Notes 10/31/2012 2:00 PM CDT >> ANNABELLE MANZANARES Wed Oct 31, 2012 2:08 PM Patient presents with: Abscess - f/u Initial BP 124/74 Pulse 80 Temp 98.4 ??F (36.9 ??C) (Tympanic) Wt 269 lb 4.8 oz (122.154 kg) Estimated Body mass index is 38.64 kg/(m^2) as calculated from the following: Height as of 10/29/12: 5' 10(1.778 m). Weight as of this encounter: 269 lb 4.8 oz(122.154 kg). BP completed using cuff size: large Annabelle Manzanares MA documented in this encounter Plan of Treatment Not on filedocumented as of this encounter Visit Diagnoses Diagnosis Cellulitis and abscess - Primary Cellulitis and abscess of unspecified si te documented in this encounter Care Teams Transit Mixer Operator Relationship Specialty Start Date End Date Jensen Melendez, NATALY - General Student in organized 10/31/12 01/13/14 [place] [address] education/training program [place], [place] [id number] documented as of this encounter
--- OUTSIDE RECORDS SUMMARY | 2022-04-14 09:14 | XMS_ITS | Encounter Summary ---
:1975 Author Organization [facility] Address [address] [place] [address]. [place] [address] Care Team Providers Name Role Phone Jensen Melendez MD Primary Care Provider [phone] Christine Marr MD Primary Care Provider [phone] Reason for Visit Reason Onset Date Comments Panel Management 01/31/2013 Encounter Details Date Type Department Care Team Description 01/31/2013 Telephone [facility] Jensen Valenzuela Panel Management [address] [facility] [place] [address] [place] [address] [address] [place] [address] (Wo rk) Social History Tobacco Use Types Packs/Day Years Used Date Smoking Tobacco: Never Smokeless Tobacco: Never Alcohol Use Standard Drinks/Week Comments No 0 (1 standard drink = 0.6 oz pure alcoho l) Sex Assigned at Date Recorded Not on file documented as of this encounter Miscellaneous Notes Telephone Encounter - Annabelle Allison - 01/31/2013 9:22 AM CDT Panel Management Review Date of last visit with a [facility] provider: Al on 01/02/13. Date of next visit with a [facility] provider: None. Problem List Patient Active Problem List Diagnosis ??? Cellulitis and abscess ??? CARDIOVASCULAR SCREENING; LDL GOAL LESS THAN 100 ??? Hyperthyroidism ??? Diabetes mellitus, type 2 Health Maintenance List Health Maintenance Topic Date Due ??? Tetanus Immunization ( [facility] Assigned) 1989 ??? Lipid Screen Q5 Yr Male (System Assigned) 2012 ??? Influenza Vaccine (System Assigned) 02/12/2013 For diabetic patients with hypertension and/or hyperlipidemia, only choose diabetes. Patient has the following on his problem list: Diabetes and CV review ASA: Failed A1C goal on problem list: not listed Last A1C A1C 7.1 11/07/2012 A1C 7.0 10/27/2012 A1C tested: Passed Blood pressure goal on problem list: <140/90 Last three blood pressure readings: BP Readings from Last 3 Encounters: 01/02/13 122/90 12/26/12 129/74 12/25/12 118/84 Blood pressure: Passed Composite cancer screening Chart review shows that this patient is due/due soon for the following None Tobacco History History Smoking status ??? Never Smoker Smokeless tobacco ??? Never Used Summary: Patient is due/failing the following: Nothing- pt will be due for follow up in [address] Melendez's plan in last OV Action needed: none Type of outreach: none- pt will follow up Questions for provider review: None Please indicate [...] documented as of this encounter Care Teams Mineralogy Teacher Relationship Specialty Start Date End Date Jensen Melendez, PCP - General Student in organized 10/31/12 01/13/14 [place] [address] [address] education/[place] [address] Christine Marr, PCP - General Pediatrics 01/14/14 documented as of this encounter
--- OUTSIDE RECORDS SUMMARY | 2022-04-14 09:14 | XMS_ITS | Encounter Summary ---
:1975 Author Organization [facility] Address [address] [place] [address]. [place] [address] Care Team Providers Name Role Phone Jensen Melendez MD Primary Care Provider Reason for Visit Reason Onset Date Comments No Show 12/12/2012 Encounter Details Date Type Department Care Team Description 12/12/2012 Office Visit [facility] Jensen Melendez NO SHOW ( Primary Dx) Cl[place]ton Pierce MD [address] [place] [address] [place] [address] [address] [place] [address] (Wo rk) Social History Tobacco Use Types Packs/Day Years Used Date Smoking Tobacco: Never Smokeless Tobacco: Never Alcohol Use Standard Drinks/Week Comments No 0 (1 standard drink = 0.6 oz pure alcoho l) Sex Assigned at Date Recorded Not on file documented as of this encounter Progress Notes Nadira Calabrese MD - 12/12/2012 3:27 PM CDT This patient was a no show for this scheduled appointment. documented in this encounter Plan of Treatment Not on filedocumented as of this encounter Visit Diagnoses Diagnosis NO SHOW - Primary documented in this encounter Care Teams Deck Builder Relationship Specialty Start Date End Date Jensen Melendez PCP - General Student in organized 10/31/12 01/13/[address] education/[place] [address] documented as of this encounter
--- OUTSIDE RECORDS SUMMARY | 2022-04-14 09:14 | XMS_ITS | Encounter Summary ---
:1975 Author Organization [facility] Address [address] [place] [address]. [place] [address] Care Team Providers Name Role Phone Jensen Melendez MD Primary Care Provider [phone] Reason for Visit Reason Comments Cellulitis Encounter Details Date Type Department Care Team Description 11/05/2012 Office Visit [facility] Jaylyn Jones Acute diarrhea (Primary Dx); Cl[place]ton Chavez PA-C Cellulitis and abscess [address] [employer] [address] [place] [address] [place] [address] [facility] [phone] [place] [address] Social History Tobacco Use Types Packs/Day Years Used Date Smoking Tobacco: Never Smokeless Tobacco: Never Alcohol Use Standard Drinks/Week Comments No 0 (1 standard drink = 0.6 oz pure alcoho l) Sex Assigned at Date Recorded Not on file documented as of this encounter Last Filed Vital Signs Vital Sign Reading Time Taken Comments Blood Pressure 118/80 11/05/2012 4:50 PM CDT Pulse - - Temperature 36.8 ??C (98.3 ??F) 11/05/2012 4:50 PM CDT Respiratory Rate - - Oxygen Saturation - - Inhaled Oxygen Concentration - - Weight 120.5 kg (265 lb 11.2 oz) 11/05/2012 4:50 PM CDT Height 180.3 cm (5' 11) 11/05/2012 4:50 PM CDT Body Mass Index 37.06 11/05/2012 4:50 PM CDT documented in this encounter Patient Instructions Patient InstructionsGoJaylyn fonseca Kathy, PA-C - 11/05/2012 5:16 PM CDT Continue with antibiotics once daily Return stool sample Follow up in two days with Dr. Melendez documented in this encounter Progress Notes Jaylyn Jones PA-C - 11/05/2012 4:44 PM CDT SUBJECTIVE: Kaiden Reyna is a 37 year old male who presents to clinic today for the following health issues: Concern - Cellulitis ?? Onset: today ?? Description: On left forearm red area ?? Intensity: mild ?? Progression of Symptoms: worse ?? Accompanying Signs & Symptoms: Redness, tender to touch ?? History: MRSA Dx on 10/24/2012, hospitalization for a few days due to this ?? Precipitating factors: Worsened by: none ?? Alleviating factors: Improved by: none ?? Therapies Tried and outcome: continues on doxycycline Patient was hospitalized at [facility] 10/26-10/28/12 with MRSA cellulitis. He was seen on multiple occasions with improvement in symptoms. He was told to continue on doxycycline twice daily; however only able to tolerate taking once daily. Patient noticed increasing redness and swelling of left forearm x today. No discharge from site, streaking, fevers. He has c/o fatigue, chills, malaise, myalgias. Patient has abdominal pain, nausea anddiarrhea. Diarrhea is constant and has 4-6 episodes daily--watery and loose in nature. No blood ormucous in stools. Blood sugars--120s. Problem list and histories reviewed & adjusted, as indicated. Additional history: as documented ROS: C: NEGATIVE for fevers E/M: NEGATIVE for ear, mouth and throat problems R: NEGATIVE for significant cough or SOB CV: NEGATIVE for chest pain GI: POSITIVE for nausea, abdominal pain, diarrhea MUSCULOSKELETAL: POSITIVE for myalgias and neck pain NEURO: NEGATIVE for weakness, dizziness or paresthesias Problem list, Medication list, Allergies, and Medical/Social/Surgical histories reviewed in EPIC andupdated as appropriate. OBJECTIVE: BP 118/80 Temp 98.3 ??F (36.8 ??C) (Oral) Ht 5' 11 (1.803 m) Wt 265 lb 11.2 oz (120.521 kg) BMI 37.06 kg/m2 GENERAL: alert, no distress HENT: ear canals- normal; TMs- normal; Nose- normal; Mouth- no ulcers, no lesions. No sinus tenderness NECK: no tenderness, no adenopathy RESP: lungs clear to auscultation - no rales, no rhonchi, no wheezes CV: regular rates and rhythm, normal S1 S2, no S3 or S4 and no murmur, no click or rub - ABDOMEN: soft, no tenderness, no hepatosplenomegaly SKIN: inspection of the left distal volar forearm reveals a healing open wound. Redness at site. No streaking, discharge. No warmth or tenderness to palpation. No induration, fluctuance or deeper abscess present. Diagnostic test results: Results for orders placed in visit on 11/05/12 CBC WITH PLATELETS DIFFERENTIAL Component Value Range WBC 8.0 4.0 - 11.0 10e9/L RBC Count 4.98 4.4 - 5.9 10e12/L Hemoglobin 14.6 13.3 - 17.7 g/dL Hematocrit 42.3 40.0 - 53.0 % MCV 85 78 - 100 fl MCH 29.3 26.5 - 33.0 pg MCHC 34.5 31.5 - 36.5 g/dL RDW 12.7 10.0 - 15.0 % Platelet Count 197 150 - 450 10e9/L Diff Method Automated Method % Neutrophils 70.4 % Lymphocytes 21.3 % Monocytes 6.6 % Eosinophils 1.4 % Basophils 0.3 Absolute Neutrophil 5.6 1.6 - 8.3 10e9/L Absolute Lymphocytes 1.7 0.8 - 5.3 10e9/L Absolute Monoctyes 0.5 0.0 - 1.3 10e9/L Absolute Eosinophils 0.1 0.0 - 0.7 10e9/L Absolute Basophils 0.0 0.0 - 0.2 10e9/L CRP INFLAMMATION Component Value Range CRP Inflammation 9.7 (*) 0.0 - 8.0 mg/L COMPREHENSIVE METABOLIC PANEL Component Value Range Sodium 142 133 - 144 mmol/L Potassium 4.1 3.4 - 5.3 mmol/L Chloride 102 94 - 109 mmol/L Carbon Dioxide 25 20 - 32 mmol/L Anion Gap 15 6 - 17 mmol/L Glucose 158 (*) 60 - 99 mg/dL Urea Nitrogen 16 5 - 24 mg/dL Creatinine 0.91 0.66 - 1.25 mg/dL GFR Estimate >90 >60 mL/min/1.7m2 GFR Estimate If Black >90 >60 mL/min/1.7m2 Calcium 9.5 8.5 - 10.4 mg/dL Bilirubin Total 0.4 0.2 - 1.3 mg/dL Albumin 4.0 3.9 - 5.1 g/dL Protein Total 7.3 6.8 - 8.8 g/dL Alkaline Phosphatase 71 40 - 150 U/L ALT 52 0 - 70 U/L AST 32 0 - 45 U/L ASSESSMENT/PLAN: 787.91 Acute diarrhea (primary encounter diagnosis) Comment: Persistent diarrhea--will obtain c.diff stool culture. Labs obtained. Follow up in two days. Plan: Clostridium difficile Toxin B PCR, CBC with platelets differential, CRP inflammation, Comprehensive metabolic panel 682.9 Cellulitis and abscess Comment: Site healing well. No acute signs of infection. Patient will continue to monitor and returnsooner if symptoms worsen. Plan: See Patient Instructions Jaylyn Jones PA-C [facility] documented in this encounter Nursing Notes 11/05/2012 4:45 PM CDT >> MARIEL SCHNEIDER Mon Nov 05, 2012 4:52 PM Patient presents with: Cellulitis Initial BP 118/80 Temp 98.3 ??F (36.8 ??C) (Oral) Ht 5' 11 (1.803 m) Wt 265 lb 11.2 oz (120.521 kg) BMI 37.06 kg/m2 Estimated Body mass index is 37.06 kg/(m^2) as calculated from the following: Height as of this encounter: 5' 11(1.803 m). Weight as of this encounter: 265 lb 11.2 oz(120.521 kg). BP completed using cuff size: X-large Mariel Schneider MA documented in this encounter Plan of Treatment Not on filedocumented as of this encounter Procedures Procedure Name Priority Date/Time Associated Comments Diagnosis CLOSTRIDIUM DIFFICILE Routine 11/05/2012 7:42 PM Acute diarrhe a Results for this TOXIN B CDT procedure are i n the results section. CBC WITH PLATELETS & Routine 11/05/2012 5:15 PM Acute diarrhea Results for this DIFFERENTIAL CDT procedure are i n the results section. CRP INFLAMMATION Routine 11/05/2012 5:15 PM Acute diarrhea Res ults for this CDT procedure are i n the results section. COMPREHENSIVE Routine 11/05/2012 5:15 PM Acute diarrhea Result s for this METABOLIC PANEL CDT procedure ar e in the results section. documented in this encounter Results Clostridium difficile Toxin B PCR (11/05/2012 7:42 PM CDT) Component Value Ref Test Analysis Performed At [facility] gist Range Method Time Signature Specimen Feces [facility] C Diff Toxin B Negative: Clostridium diffic ile target DNA sequences NOT detected, presumed [facility] PCR negative for Clostridium di fficile toxin B or the number of bacteria present MICROBIOLOGY may be below the limit of detection for the test. FDA approved assay performed using Index GeneXpert real-t erich PCR. A negative result does not exclude actual disease due to Clostridium difficile and may be due to improper collection, handling and storage of the specimen or the number of organisms in the specimen is below the detection limit of the assay. Specimen Anatomical Collection Method Collection Time Receive d Time (Source) Location / / Volume Laterality Stool specimen 11/05/2012 7:42 PM 013 7:47 (specimen) CDT PM CDT Jaylyn Jones PA-C LAB - MICRO GENERAL ORD ERABLES Performing Organization Address City/State/ZIP Code Phon e Number [address] [address] [facility] [address] [place], [place] [id number] [facility] MICROBIOLOGY (ABNORMAL) Comprehensive metabolic panel (11/05/2012 5:15 PM CDT) athologist Signature Sodium 142 133 - 144 [place] mmol/L [facility] Potassium 4.1 3.4 - 5.3 [place] mmol/L [facility] Chloride 102 94 - 109 [place] mmol/L [facility] Carbon Dioxide 25 20 - 32 [place] mmol/L [facility] Anion Gap 15 6 - 17 [place] mmol/L [facility] Glucose 158 (H) 60 - 99 [place] mg/dL [facility] Urea Nitrogen 16 5 - 24 [place] mg/dL [facility] Creatinine 0.91 0.66 - [place] 1.25 mg/dL [facility] GFR Estimate >90 >60 [place] mL/min/1.7 [facility] m2 LAB GFR Estimate If >90 >60 [place] Black mL/min/1.7 [facility] m2 LAB Calcium 9.5 8.5 - 10.4 [place] mg/dL [facility] Bilirubin Total 0.4 0.2 - 1.3 [place] mg/dL [facility] Albumin 4.0 3.9 - 5.1 [place] g/dL [facility] Comment: Reference range changed on 01/14. Protein Total 7.3 6.8 - 8.8 g/dL [facility] Comment: As of 07, reference range reflects plasma specimen type. Alkaline Phosphatase 71 40 - 150 U/L [facility] ALT 52 0 - 70 U/L [facility] AST 32 0 - 45 U/L [facility] Specimen Anatomical Collection Method Collection Time Receive d Time (Source) Location / / Volume Laterality Blood specimen 11/05/2012 5:15 PM 013 5:20 (specimen) CDT PM CDT Jaylyn Jones PA-C LAB - BLOOD ORDERABLES Performing Organization Address City/State/ZIP Code Phon e Number [facility] [address] [place] [address] [phone] [facility] [address] [place] [address] (ABNORMAL) CRP inflammation (11/05/2012 5:15 PM CDT) [facility] gist Method Time Signature CRP Inflammation 9.7 (H) 0.0 - 8.0 [facility] mg/L [facility] [place] LABS Specimen Anatomical Collection Method Collection Time Receive d Time (Source) Location / / Volume Laterality Blood specimen 11/05/2012 5:15 PM 013 5:20 (specimen) CDT PM CDT Jaylyn Jones PA-C LAB - BLOOD ORDERABLES Performing Organization Address City/State/ZIP Code Phon e Number [facility] [address] [place] [address] [facility]S CBC with platelets differential (11/05/2012 5:15 PM CDT) [facility] Method Time Signature WBC 8.0 4.0 - [facility] 11.0 [facility] 10e9/L LAB RBC Count 4.98 4.4 - 5.9 [facility] 10e12/L [facility] Hemoglobin 14.6 13.3 - [facility] 17.7 g/dL [facility] Hematocrit 42.3 40.0 - [facility] 53.0 % [facility] MCV 85 78 - 100 [facility] fl [facility] MCH 29.3 26.5 - [facility] 33.0 pg [facility] MCHC 34.5 31.5 - [facility] 36.5 g/dL [facility] RDW 12.7 10.0 - [facility] 15.0 % [facility] Platelet Count 197 150 - 450 [facility] 10e9/L [facility] Diff Method Automated [place] Method [facility] % Neutrophils 70.4 % [place] [facility] % Lymphocytes 21.3 % [place] [facility] % Monocytes 6.6 % [place] [facility] % Eosinophils 1.4 % [place] [facility] % Basophils 0.3 % [place] [facility] Absolute 5.6 1.6 - 8.3 [place] Neutrophil 10e9/L [facility] Absolute 1.7 0.8 - 5.3 [facility] Lymphocytes 10e9/L [facility] Absolute 0.5 0.0 - 1.3 [facility] Monocytes 10e9/L [facility] Absolute 0.1 0.0 - 0.7 [facility] Eosinophils 10e9/L [facility] Absolute 0.0 0.0 - 0.2 [facility] Basophils 10e9/L [facility] Specimen Anatomical Collection Method Collection Time Receive d Time (Source) Location / / Volume Laterality Blood specimen 11/05/2012 5:15 PM 013 5:20 (specimen) CDT PM CDT [place] Kathy Jones PA-C LAB - BLOOD ORDERABLES Performing Organization Address City/State/ZIP Code Phon e Number [facility] [address] [place] [address] [facility] [address] [place] [address] documented in this encounter Visit Diagnoses Diagnosis Acute diarrhea - Primary Diarrhea Cellulitis and abscess Cellulitis and abscess of unspecified si te documented in this encounter Care Teams Wireless Consultant Relationship Specialty Start Date End Date Jensen Melendez, PCP - General Student in organized 10/31/12 01/13/14 [place] [address] education/[place] [address] documented as of this encounter
--- OUTSIDE RECORDS SUMMARY | 2022-04-14 09:14 | XMS_ITS | Encounter Summary ---
:1975 Author Organization [place] Address [address] [place] [address]. [place] [address] Care Team Providers Name Role Phone Jensen Melendez MD Primary Care Provider Reason for Referral Consultation - Closed Specialty Diagnoses / Procedures Referred By Contact Refer red To Contact Contact Lens Optometry Diagnoses Diabetes mellitus, type 2 (H) Jensen Melendez MD [address] [facility] [address] [place] [address] Referral ID Status Reason Start Date Expiration Date Visits Requ ested Visits Authorized [id number] Closed 01/02/2013 07/01/2013 1 1 Reason for Visit Reason Comments Thyroid Problem Encounter Details Date Type Department Care Team Description 01/02/2013 Office Visit [facility] Jensen Melendez Circadian rhythm sleep disorder, shift work type (Primary Dx); Clifton Pierce MD Diabetes mellitus, type 2 (H); [address] [facility] [address] [place] [phone] [address] [place], [place] [id number] (Wo rk) Social History Tobacco Use Types Packs/Day Years Used Date Smoking Tobacco: Never Smokeless Tobacco: Never Alcohol Use Standard Drinks/Week Comments No 0 (1 standard drink = 0.6 oz pure alcoho l) Sex Assigned at Date Recorded Not on file documented as of this encounter Last Filed Vital Signs Vital Sign Reading Time Taken Comments Blood Pressure 122/90 01/02/2013 2:01 PM CDT Pulse 80 01/02/2013 2:01 PM CDT Temperature 36.8 ??C (98.3 ??F) 01/02/2013 2:01 PM CDT Respiratory Rate - - Oxygen Saturation - - Inhaled Oxygen Concentration - - Weight 120.7 kg (266 lb) 01/02/2013 2:01 PM CDT Height 175.3 cm (5' 9) 01/02/2013 2:01 PM CDT Body Mass Index 39.28 01/02/2013 2:01 PM CDT documented in this encounter Patient Instructions Patient InstructionsJensen Melendez MD - 01/02/2013 2:49 PM CDT Images from the original note were not included. Follow-up with the diabetes education classes. Will check testosterone today. Exercise and Diet Why is exercise important? Exercise helps keep your blood sugar under control. Many of the people with the best controlled diabetes are those who exercise regularly. Exercise helps in the following ways: Exercise helps your body burn more sugar. Insulin is more effective during exercise. More sugar and insulin flows in the blood to the muscles during exercise. As a result, your body ge more sugar. Exercise usually helps lower the blood sugar. Exercise makes you feel better. You will have more energy and tire less easily. Studies have shown that exercise can make you feel healthier and happier by helping you keep normal levels of the brain hormones that affect your mood. Exercise helps keep the body in good shape. Exercise helps you burn extra calories and keep a normalweight. It keeps your muscles and bones strong. Exercise helps keep the heart rate and blood pressure lower. People who exercise have healthier hearts. Their hearts don't have to pump as hard. Normal blood pressure helps prevent strokes and heart, eye, and kidney problems. Exercise helps keep blood fat levels normal. Many people with diabetes have high levels of blood fats (cholesterol and triglycerides). High blood fats can lead to early aging of blood vessels. Exerciseand a healthy diet are the best ways to lower blood fats. Exercise helps normal blood flow to the feet. Exercise can help you keep good blood flow to your feet. This can help prevent foot problems. Exercise can be particularly important if you have type 2 diabetes or if you have a high risk of becoming diabetic. If you are overweight, you can lose weight by eating less (particularly less fast food and high-fat food) and exercising more. You may be able to cut your risk of type 2 diabetes by morethan half if you keep a normal weight and exercise regularly. How do I get started? Make sure you discuss plans for a new exercise program with your healthcare provider before you start. It is always best to start a new exercise program slowly. Slowly increase how long and how much you exercise. If you are taking insulin or other diabetes medicines, ask your provider about checking your sugars and adjusting your dose of insulin before and after exercise. Make exercise a daily routine. Protect your feet when you exercise. Wear good-fitting shoes and smooth-fitting socks. Check your feet every day and watch for blisters, warm areas or redness. If you have any kind of sore on your foot, see your healthcare provider right away. Which kinds of exercise are best? The best exercise is exercise you enjoy. It is easier to form a habit of exercising if you enjoy theactivity. Some of the exercise should be aerobic. Only aerobic exercise helps the heart. Some examples are walking, jogging, swimming, and bicycling. Ask your healthcare provider which exercises and what maximum pulse rate are best for you. Activities done in short bursts with rests in between (such as weight lifting) are strength-buildingexercises, not aerobic exercise. People with diabetes can play almost every sport. Boxing is the only activity that is discouraged. This is because eye injuries are common in boxing, and eye problems are a possible complication of diabetes. Also, the high risk of brain damage makes boxing dangerous for anyone. Strenuous activities, such as weight lifting and jogging, are discouraged if you have severe eye problems related to diabetes because they increase the pressure in the eyes. If you have eye problems, make sure you talk to your healthcare provider before you start a new activity. When should I exercise? The best time to exercise depends on your schedule. If you are taking insulin or other diabetes medicines that can lower blood sugar, you need to take precautions against your blood sugar getting too low when you exercise. Think ahead and make changes in your snacks and doses of insulin or other diabetes medicine to help prevent low blood sugar. Try to pick a regular exercise time and adjust your snacks and medicine dose to fit the exercise. If you are just starting an exercise program, don???t exercise too long. Check your blood sugar after 15 minutes and, whether you???re still exercising or finished, again at 30 minutes. How often and long should I exercise? Ask your healthcare provider to prescribe a plan for starting an exercise program. It should includethe type of exercise, how long you should exercise, and how often. To help your heart stay healthy, it is good to have at least 30 minutes of aerobic exercise 5 or more times a week. The more exercise you get, the more fat you will burn. If weight loss is one of your goals, you may need to exercise harder or for a longer time to reach your goal. Start each exercise activity with a warm-up. Do something for 5 to 10 minutes that slowly increases your heart rate, such as walking. Gently stretch your muscles before and after exercise to help prevent cramps and stiffness. Finish your exercise with a cool-down by slowing your activity for 5 to 10 minutes before you stop. When should I not exercise? If you have type 1 diabetes, you should avoid vigorous physical activity when your urine or blood test is positive for ketones. If your urine ketone level is high or moderate, exercise can raise your ketone level even more. Check your urine for ketones before exercising if you are not feeling well or your blood sugar is staying higher than 240 milligrams per deciliter (mg/dL), or about 13 millimoles per liter (mmol/L). You can usually still exercise when your blood sugar is high as long as you feel well and there are no ketones in your blood or urine. Avoid exercising when it is very hot or very cold. Ask your healthcare provider if there are other times when you should not exercise--for example, when you feel ill or have a fever. How can I prevent low blood sugar reactions during exercise? A low blood sugar (hypoglycemia) could happen during or after exercise. There are several ways to manage your blood sugar and exercise: Plan to exercise after a light, high-protein snack. Exercise after a meal, but wait at least 30 minutes after you have eaten so you can digest your foodfirst. Reduce your insulin dose before exercise. Take extra snacks with you to help prevent low blood sugar during your exercise. You will need some practice with adjusting the amount of food you eat before exercise, how long you wait before exercising, and how much you decrease your doses of insulin or other diabetes medicine. You will need to keep good records so you can see what works best. Take these records to your visits with your healthcare provider so you can get help making adjustments. Here are some things that might help. Often the best time to exercise is 1 to 3 hours after eating a meal. Check your blood sugar before and after exercise. You may need to eat a carb snack (that is at least15 grams of carbohydrate) before exercise if your blood sugar is less than 100 mg/dL (5.5 mmol/L). Test your blood sugar 15 to 30 minutes later. Your provider may recommend that you not exercise until your blood sugar is higher than 100 mg/dL (5.5 mmol/L). Your blood sugar may keep being lower than usual for several hours after exercise. Until you learn how your body is reacting to a new exercise program, you should check your blood sugar more often than usual until bedtime, just to be sure it???s not getting too low. Avoid exercising when insulin is working at peak level, which means it is keeping your blood sugar at its lowest level. Your provider can tell you when your type of insulin is at its peak. Learn how your blood sugar responds to different exercise conditions. Know what to do if your blood sugar is low or gets low when you are exercising. Always carry a source of sugar and a longer lasting snack of some carbohydrate and protein, for example, nuts, peanut butter, or cheese and crackers. Remember, it is chandler to think ahead about the day's schedule and plan accordingly. Be sure to ask your healthcare provider if you have any questions about managing your blood sugar levels, your doses of insulin or other diabetes medicines, and the timing of your exercise. Published by [employer]. This content is reviewed periodically and is subject to change as new health information becomes available. The information is intended to inform and educate and is not a replacement for medical evaluation, advice, diagnosis or treatment by a healthcare professional. Abstracted from the book, Understanding Diabetes, 10th Edition, by Krysten Harrell MD (available by calling [phone]). ?? 2010 [facility] and/or its affiliates. All rights reserved. documented in this encounter Progress Notes Jensen Melendez MD - 01/02/2013 2:04 PM CDT SUBJECTIVE: Kaiden Reyna is a 37 year old male who presents to clinic today with concerns of a low temperature 4 days ago. The patient reports that he was lying down to go to bed whenever he became very cold. The patient reports that he checked his temperature and reports that it 96 degrees. He denies any fevers. He states his temperature then returned to normal and has not returned since. Of note the patientdid have an MRSA infection about 10 days ago. He has been treated with I&D as well as abx with improvement of his infection.The patient also reports low energy and fatigue. He states that he works 4PM to 4AM and has little time to work out. The patient also reports that he eats 1-2 times per day and does not eat many fresh fruits and veggies. 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 He reports lots of muscle twitching especially whenhe is trying to sleep. He also reoprts a low sex drive and ongoing difficulties achieving and erection. The patient is also concerned that he has had diarrhea since starting his metformin. He states that his diarrhea is curd like. He states he would like more information about healthy foods and exercise. ROS: 8 point ROS negative except per HPI. Objective: BP 122/90 Pulse 80 Temp 98.3 ??F (36.8 ??C) (Oral) Ht 5' 9 (1.753 m) Wt 266 lb (120.657 kg) BMI 39.28 kg/m2 General: Overweight white male, NAD HEENT: NC/AT, EOMI, PERRL, Oropharynx/Nasalpharynx pink and moist, No lymphadenopathy, trachea midline, No thyromegaly. Lungs: CTA bilaterally, no wheezes. Heart: RRR, No m/r/g Abdomen: S/NT/ND, no masses or organomegaly, BS x 4 quadrants Extremites: No cyanosis or edema. 2+ pulses in all 4 extremities. ASSESSMENT / PLAN: 327.36 Circadian rhythm sleep disorder, shift work type (primary encounter diagnosis) Comment: Patient reports sleep disturbance, fatigue and problems sleeping all are likely secondary to the patient's 2nd shift work schedule and circadian rhythm dysfunction. The patient reports he is currently applying for new work. Discussed trying to adapt to a regular 24 hour cycle to mimic a normal sleep wake cycle. The patient stated understanding. 250.00 Diabetes mellitus, type 2 Comment: Patient reports some GI side effects with metformin including diarrhea. Discussed with patient other treatment options however he reports that he would like to continue with his metformin as well as try diet and exercise. Patient is also interested in diabetes education so consult placed for diabetic educator referral. Will have the patient follow up at regular 6 month diabetes check. Encouraged exercise and diet modifications. Plan: LOCOMOTIVE ENGINEER ELECTRIC REFERRAL 329.[address] Comment: Patient reports ongoing problems with his libido and ability to achieve an erection. Likelyhas a psychosocial component however will check a testosterone level today. Plan: Testosterone, free and total Plan discussed with Dr. Felisha Melendez MD Medicine-Pediatrics PGY-3 [phone] I have discussed the patient with the resident and agree with the history, physical and plan as documented above. Elise Baeza MD Internal Medicine - Pediatrics documented in this encounter Nursing Notes 01/02/2013 2:00 PM CDT >> KAVEH ISRAEL Wed Jan 02, 2013 2:07 PM Patient presents with: Thyroid Problem Initial BP 122/90 Pulse 80 Temp 98.3 ??F (36.8 ??C) (Oral) Ht 5' 9 (1.753 m) Wt 266 lb (120.657 kg) BMI 39.28 kg/m2 Estimated Body mass index is 39.28 kg/(m^2) as calculated from the following: Height as of this encounter: 5' 9(1.753 m). Weight as of this encounter: 266 lb(120.657 kg). BP completed using cuff size: large documented in this encounter Miscellaneous Notes Addendum Note - Jensen Melendez MD - 01/09/2013 1:45 PM CDT Addended by: JENSEN MELENDEZ on: 01/09/2013 01:45 PM Modules accepted: Orders documented in this encounter Plan of Treatment Not on filedocumented as of this encounter Procedures Procedure Name Priority Date/Time Associated Comments Diagnosis TESTOSTERONE FREE AND Routine 01/02/2013 2:[address] Results for this TOTAL CDT procedure are i n the results section. documented in this encounter Results (ABNORMAL) Testosterone, free and total (01/02/2013 2:49 PM CDT) [facility] Method Time Signature Percent 3.4 2.0 - 4.0 [facility] Testosterone Free % [facility] Testosterone 160 (L) 240 - 950 [facility] Total ng/dL [facility] Testosterone Free 5.4 (L) 8 - 30 [facility] ng/dL [facility] Comment: Analyte Specific Reagents (ASRs) are use d in many laboratory tests necessary for standard medical care and generally do not require FDA approval. ??This test was developed and its preformance character istics determined by [facility]. ? ?It has not been cleared or approved by the U.S. Food and Drug Administration. Specimen Anatomical Collection Method Collection Time Receive d Time (Source) Location / / Volume Laterality Blood specimen 01/02/2013 2:49 PM 013 2:54 (specimen) CDT PM CDT Jensen Melendez MD LAB - BLOOD ORDERABLES Performing Organization Address City/State/ZIP Code Phon e Number [facility] [address] [place], [place] [id number] [place] [address] LABS documented in this encounter Visit Diagnoses Diagnosis Circadian rhythm sleep disorder, shift w ork type - Primary Diabetes mellitus, type 2 (H) Type II or unspecified type diabetes samuel litus without mention of complication, not stated as uncontrolled Decreased sex drive Decreased libido documented in this encounter Additional Health Concerns Infection Onset Date Last Indicated Resolved Time MRSA-Contact IsolationComment: Skin 12-25-2012 01/02/2013 documented as of this encounter Care Teams Architectural Technician Relationship Specialty Start Date End Date Jensen Melendez, PCP - General Student in organized 10/31/12 01/13/14 [place] [address] education/[place] [address] documented as of this encounter
--- OUTSIDE RECORDS SUMMARY | 2022-04-14 09:14 | XMS_ITS | Encounter Summary ---
:1975 Author Organization [place] Address [address] [place] [address]. [place] [address] Care Team Providers Name Role Phone Jensen Melendez MD Primary Care Provider [phone] Reason for Visit Reason Onset Date Comments Vomiting 05/30/2013 diarrhea Encounter Details Date Type Department Care Team Description 05/30/2013 Telephone [facility] Eag Jensen Gonzalez Vomiting (diarrhea) [address] [facility] [place] [address] [address] [facility] [phone] [address] [place] [address] (Wo rk) Social History Tobacco Use Types Packs/Day Years Used Date Smoking Tobacco: Never Smokeless Tobacco: Never Alcohol Use Standard Drinks/Week Comments No 0 (1 standard drink = 0.6 oz pure alcoho l) Sex Assigned at Date Recorded Not on file documented as of this encounter Miscellaneous Notes Telephone Encounter - Hilda Rose - 05/30/2013 10:31 AM CST calls for patient and put him on the phone. Having diarrhea and vomiting for 1 wk. Diabetic and unable to take diabetic medication. Urine is dark, urinating once or twice a day, usually goes 3-4 times/day. Not able to keep fluids down in the am, but able to keep some solids and liquids down in the pm. Gets sensation to have bm and then has to vomit at the same time. Denies fever. Has been having loose/soft stools, and stomach issues with metformin for months. Blood sugar was 143 in the evening a couple hours after eating last night so took metformin and thenwas up at 2 am up with diarrhea. Mouth is dry, last vomited 10 min ago, vomiting in am then doesn't eat until pm. Vomiting and diarrhea start all over after that. Feels weak and dizzy the past week. Informed that he was on the border of dehydration, may need IV fluids. Patient does not feel he needs to go to the ER. Recommended he come in to be seen and same day provider could evaluate him. Informed of the possibility of him being sent to the ER and he states he was ok with that. He verbalized understanding. Bonnie Rose RN Message handled by Nurse Triage. CAL EFFECTS LINE UP PERSON documented in this encounter Plan of Treatment Not on filedocumented as of this encounter Visit Diagnoses Not on filedocumented in this encounter Additional Health Concerns Infection Onset Date Last Indicated Resolved Time MRSA-Contact IsolationComment: Skin 12-25-2012 01/02/2013 documented as of this encounter Care Teams Pillowcase Turner Relationship Specialty Start Date End Date Jensen Melendez, NATALY - General Student in organized 10/31/12 01/13/14 [place] [address] education/[place] [address] documented as of this encounter
--- OUTSIDE RECORDS SUMMARY | 2022-04-14 09:14 | XMS_ITS | Encounter Summary ---
:1975 Author Organization [place] Address [address] [place] [address]. [place] [address] Care Team Providers Name Role Phone Jensen Melendez MD Primary Care Provider [phone] Reason for Visit Reason Onset Date Comments Diarrhea 11/06/2012 Encounter Details Date Type Department Care Team Description 11/06/2012 Telephone [facility] E[facility] Jensen Gonzalez, Diarrhea [address] [place] [address] [place] [address] [address] [place] [address] (Wo rk) Social History Tobacco Use Types Packs/Day Years Used Date Smoking Tobacco: Never Smokeless Tobacco: Never Alcohol Use Standard Drinks/Week Comments No 0 (1 standard drink = 0.6 oz pure alcoho l) Sex Assigned at Date Recorded Not on file documented as of this encounter Miscellaneous Notes Telephone Encounter - Araceli Villeda - 11/06/2012 2:58 PM CDT Calling wondering if his C. Diff results are in, results still pending at this time, informed patient that we will call with results. Reports having 4-5 loose stools daily and having discomfort and burning to the rectum. Wondering what he can do to help with the discomfort. Advised to cleanse the areawith soap and water after having a bowel movement, trying a sitz bath, and applying vaseline to helpprotect the skin. Encouraged eating yogurt to help bowel movements and drinking plenty of fluids to remain hydrated. Patient reports voiding frequently. Will call back to the clinic if symptoms are notrelieved, or development of any new or worsening symptoms. Araceli Villeda RN documented in this encounter Plan of Treatment Not on filedocumented as of this encounter Visit Diagnoses Not on filedocumented in this encounter Care Teams Commercial Driver Relationship Specialty Start Date End Date Jensen Melendez, PCP - General Student in organized 10/31/12 01/13/14 [place] [address] education/[place] [address] documented as of this encounter
--- OUTSIDE RECORDS SUMMARY | 2022-04-14 09:14 | XMS_ITS | Encounter Summary ---
:1975 Author Organization [place] Address [address] [place] [address]. [place] [address] Care Team Providers Name Role Phone Jensen Melendez MD Primary Care Provider [phone] Reason for Visit Reason Comments Infection Encounter Details Date Type Department Care Team Description 12/18/2012 Office Visit [facility] Jaylyn Jones Sinus itis, acute (Primary Dx); Clifton Chavez PA-C Toe erythema [address] [employer] [address] [place] [address] [place] [id number] [facility] [phone] [place]ZO [id number] Social History Tobacco Use Types Packs/Day Years Used Date Smoking Tobacco: Never Smokeless Tobacco: Never Alcohol Use Standard Drinks/Week Comments No 0 (1 standard drink = 0.6 oz pure alcoho l) Sex Assigned at Date Recorded Not on file documented as of this encounter Last Filed Vital Signs Vital Sign Reading Time Taken Comments Blood Pressure 118/76 12/18/2012 4:30 PM CDT Pulse 84 12/18/2012 4:30 PM CDT Temperature 37.1 ??C (98.7 ??F) 12/18/2012 4:30 PM CDT Respiratory Rate - - Oxygen Saturation - - Inhaled Oxygen Concentration - - Weight 120.8 kg (266 lb 6.4 oz) 12/18/2012 4:30 PM CDT Height 180.3 cm (5' 11) 12/18/2012 4:30 PM CDT Body Mass Index 37.16 12/18/2012 4:30 PM CDT documented in this encounter Patient Instructions Patient InstructionsJaylyn Jones PA-C - 12/18/2012 5:13 PM CDT Begin antibiotics. Increase fluid intake. documented in this encounter Progress Notes Jaylyn Jones PA-C - 12/18/2012 4:22 PM CDT SUBJECTIVE: Kaiden Reyna is a 37 year old male who presents to clinic today for the following health issues: Concern - Bilateral great toe infections ?? Onset: 1 week ago ?? Description: As listed below ?? Intensity: /10 ?? Progression of Symptoms: worse ?? Accompanying Signs & Symptoms: Swelling, redness, pain No discharge ?? Previous history of similar problem: no ?? Precipitating factors: Worsened by: wearing shoes ?? Alleviating factors: Improved by: no ?? Therapies Tried and outcome: no Acute Illness Acute illness concerns?- [place] Onset: one week ago ?? Fever: no ?? Chills/Sweats: no ?? Headache (location?): YES ?? Sinus Pressure:left maxillary ?? Conjunctivitis: no ?? Ear Pain: YES: bilateral ?? Rhinorrhea: no ?? Congestion: no ?? Sore Throat: no ?? Sneezing ?? No seasonal allergies ?? Cough: no ?? Wheeze: no ?? Decreased Appetite: YES ?? Nausea: YES ?? Vomiting: no ?? Diarrhea: YES ?? Dysuria/Freq.: no ?? Fatigue/Achiness: YES ?? Sick/Strep Exposure: YES Therapies Tried and outcome: nothing Problem list, Medication list, Allergies, and Medical/Social/Surgical histories reviewed in EPIC andupdated as appropriate. ROS: ROS otherwise negative OBJECTIVE: BP 118/76 Pulse 84 Temp 98.7 ??F (37.1 ??C) (Oral) Ht 5' 11 (1.803 m) Wt 266 lb 6.4 oz (120.838 kg) BMI 37.16 kg/m2 Body mass index is 37.16 kg/(m^2). GENERAL: alert, no distress HENT: ear canals- normal; TMs- normal; Nose- normal; Mouth- no ulcers, no lesions; tenderness over the left maxillary sinus NECK: no tenderness, no adenopathy RESP: lungs clear to auscultation - no rales, no rhonchi, no wheezes CV: regular rates and rhythm, normal S1 S2, no S3 or S4 and no murmur, no click or rub - SKIN: inspection of the great toes reveals erythema on the medial aspects. Slight tenderness to palpation. No ingrown toenails. No pus, discharge or abscesses. No warmth. Diagnostic test results: No results found for this or any previous visit (from the past 24 hour(s)). ASSESSMENT/PLAN: 461.9 Sinusitis, acute (primary encounter diagnosis) Comment: begin antibiotics, increase fluid intake. Plan: sulfamethoxazole-trimethoprim (BACTRIM DS) 800-160 MG per tablet 695.9 Toe erythema Comment: likely due to ill-fitting shoes. Recommend padding at site. No acute paronychia noted. Patient encouraged to soak four times daily and covered with oral antibiotics. Return if symptoms persist. Plan: See Patient Instructions Jaylyn Jones PA-C [facility] documented in this encounter Nursing Notes 12/18/2012 4:30 PM CDT >> MARIEL Tom Dec 18, 2012 4:32 PM Patient presents with: Infection Initial BP 118/76 Pulse 84 Temp 98.7 ??F (37.1 ??C) (Oral) Ht 5' 11 (1.803 m) Wt 266 lb 6.4oz (120.838 kg) BMI 37.16 kg/m2 Estimated Body mass index is 37.16 kg/(m^2) as calculated from thefollowing: Height as of this encounter: 5' 11(1.803 m). Weight as of this encounter: 266 lb 6.4 oz(120.838 kg). BP completed using cuff size: X-large Mariel Kinney MA documented in this encounter Plan of Treatment Not on filedocumented as of this encounter Visit Diagnoses Diagnosis Sinusitis, acute - Primary Acute sinusitis, unspecified Toe erythema Unspecified erythematous condition documented in this encounter Care Teams Statistics Professor Relationship Specialty Start Date End Date Jensen Melendez, PCP - General Student in organized 10/31/12 01/13/14 [place] [address] education/[place] [address] documented as of this encounter
--- OUTSIDE RECORDS SUMMARY | 2022-04-14 09:14 | XMS_ITS | Encounter Summary ---
:1975 Author Organization [place] Address [address] [place] [address]. [place] [address] Care Team Providers Name Role Phone Jensen Melendez MD Primary Care Provider Reason for Referral Diagnostic Procedure Outpatient - Closed Specialty Diagnoses / Procedures Referred By Contact Refer red To Contact Diagnoses Hematemesis Nausea and vomiting Abdominal pain, epigastric Diarrhea Family hx of colon cancer Abdominal pain, generalized Jaylyn Jones [facility] [address] [place] [address] [address] [facility] [place] [phone] Fax: Referral ID Status Reason Start Date Expiration Date Visits Requ ested Visits Authorized [id number] Closed 07/02/2013 12/29/2013 1 1 TICAL SCIENCE CHAIR Reason for Visit Reason Comments Vomiting Encounter Details Date Type Department Care Team Description 07/02/2013 Office Visit [facility] Jaylyn Jones Abdom inal pain, epigastric (Primary Dx); Clifton Chavez PA-C Hematemesis; [address] [facility] Nausea and vomiting; [place] [id number] [facility] Abdominal pain, generalized; [phone] [place] [address] Diarrhea; [phone] Family hx of co gavi cancer (Work) Social History Tobacco Use Types Packs/Day Years Used Date Smoking Tobacco: Never Smokeless Tobacco: Never Alcohol Use Standard Drinks/Week Comments No 0 (1 standard drink = 0.6 oz pure alcoho l) Sex Assigned at Date Recorded Not on file documented as of this encounter Last Filed Vital Signs Vital Sign Reading Time Taken Comments Blood Pressure 114/60 07/02/2013 9:15 AM POLITICAL SCIENCE CHAIR Pulse 76 07/02/2013 9:15 AM POLITICAL SCIENCE CHAIR Temperature 36.7 ??C (98.1 ??F) 07/02/2013 9:15 AM POLITICAL SCIENCE CHAIR Respiratory Rate - - Oxygen Saturation - - Inhaled Oxygen Concentration - - Weight 120.8 kg (266 lb 4.8 oz) 07/02/2013 9:15 AM POLITICAL SCIENCE CHAIR Height 175.3 cm (5' 9) 07/02/2013 9:15 AM POLITICAL SCIENCE CHAIR Body Mass Index 39.33 07/02/2013 9:15 AM POLITICAL SCIENCE CHAIR documented in this encounter Patient Instructions Patient InstructionsJaylyn Jones PA-C - 07/02/2013 9:46 AM POLITICAL SCIENCE CHAIR GI director law enforcement will contact you to schedule both an Endoscopy and Colonoscopy TICAL SCIENCE CHAIR documented in this encounter Progress Notes Jaylyn Jones PA-C - 07/02/2013 9:02 AM CST SUBJECTIVE: Kaiden Reyna is a 38 year old male, accompanied by partner, who presents to clinic today for the following health issues: GERD/Heartburn ?? Onset: vomiting in the am x one month ?? Description: ?? Burning in chest: no ?? Intensity: n/a ?? Progression of Symptoms: same ?? Accompanying Signs & Symptoms: Does it feel like food gets stuck: no Nausea: YES Vomiting (bloody?): YES Abdominal Pain: YES Black-Tarry stools: no: Bloody stools: no Diarrhea: every am No appetite throughout days ?? History: Previous ulcers: YES ?? Precipitating factors: Caffeine use: YES- 20 oz soda daily; coffee daily Alcohol use: no NSAID/Aspirin use: no Tobacco use: no Worse with no particular food or drink. ?? Alleviating factors: none ?? Therapies Tried and outcome: none Patient having dinner at 5-6 pm. Asymptomatic. Sleeping well at night. No heartburn symptoms. In the mornings, patient has BM and patient feels nauseated and then vomiting. Abdominal pain associated with vomiting. No prior history of gallstones. History of kidney stones and ulcers in past. FH: father from colon cancer in mid-30s. Problem list, Medication list, Allergies, and Medical/Social/Surgical histories reviewed in [facility] andupdated as appropriate. ROS: C: NEGATIVE for fever, chills, recent illnesses; changes in weight E/M: NEGATIVE for ear, mouth and throat problems R: NEGATIVE for significant cough CV: NEGATIVE for chest pain GI: POSITIVE for nausea, abdominal pain, vomiting; NEGATIVE for heartburn, or change in bowel habits NEURO: NEGATIVE for weakness, dizziness OBJECTIVE: BP 114/60 Pulse 76 Temp 98.1 ??F (36.7 ??C) (Oral) Ht 5' 9 (1.753 m) Wt 266 lb 4.8 oz (120.793 kg) BMI 39.31 kg/m2 Body mass index is 39.31 kg/(m^2). GENERAL: alert, no distress HENT: Mouth- no ulcers, no lesions NECK: no tenderness, no adenopathy RESP: lungs clear to auscultation - no rales, no rhonchi, no wheezes CV: regular rates and rhythm, normal S1 S2, no S3 or S4 and no murmur, no click or rub - ABDOMEN: soft, epigastric tenderness, lower abdominal tendereness, no hepatosplenomegaly, no masses,normal bowel sounds SKIN: no suspicious lesions, no rashes Diagnostic test results: Results for orders placed in visit on 07/02/13 (from the past 24 hour(s)) COMPREHENSIVE METABOLIC PANEL Component Value Range Sodium 139 133 - 144 mmol/L Potassium 4.4 3.4 - 5.3 mmol/L Chloride 106 94 - 109 mmol/L Carbon Dioxide 24 20 - 32 mmol/L Anion Gap 9 6 - 17 mmol/L Glucose 176 (*) 60 - 99 mg/dL Urea Nitrogen 12 5 - 24 mg/dL Creatinine 0.82 0.66 - 1.25 mg/dL GFR Estimate >90 >60 mL/min/1.7m2 GFR Estimate If Black >90 >60 mL/min/1.7m2 Calcium 8.9 8.5 - 10.4 mg/dL Bilirubin Total 0.4 0.2 - 1.3 mg/dL Albumin 3.6 (*) 3.9 - 5.1 g/dL Protein Total 6.6 (*) 6.8 - 8.8 g/dL Alkaline Phosphatase 56 40 - 150 U/L ALT 49 0 - 70 U/L AST 36 0 - 45 U/L CBC WITH PLATELETS DIFFERENTIAL Component Value Range WBC 7.6 4.0 - 11.0 10e9/L RBC Count 4.63 4.4 - 5.9 10e12/L Hemoglobin 13.9 13.3 - 17.7 g/dL Hematocrit 40.7 40.0 - 53.0 % MCV 88 78 - 100 fl MCH 30.0 26.5 - 33.0 pg MCHC 34.2 31.5 - 36.5 g/dL RDW 13.0 10.0 - 15.0 % Platelet Count 159 150 - 450 10e9/L Diff Method Automated Method % Neutrophils 74.3 % Lymphocytes 17.2 % Monocytes 6.9 % Eosinophils 1.5 % Basophils 0.1 Absolute Neutrophil 5.6 1.6 - 8.3 10e9/L Absolute Lymphocytes 1.3 0.8 - 5.3 10e9/L Absolute Monoctyes 0.5 0.0 - 1.3 10e9/L Absolute Eosinophils 0.1 0.0 - 0.7 10e9/L Absolute Basophils 0.0 0.0 - 0.2 10e9/L CRP INFLAMMATION Component Value Range CRP Inflammation 10.9 (*) 0.0 - 8.0 mg/L ERYTHROCYTE SEDIMENTATION RATE AUTO Component Value Range Sed Rate 8 0 - 15 mm/h LIPASE Component Value Range Lipase 221 20 - 250 U/L H PYLORI ANTIBODY IGG Component Value Range Specimen Description Whole Blood Heliobacter pylori Antibody Screen Value: No detectable IgG antibody to Helicobacter pylori. If current infection is suspected, please submit a new specimen in 4 to 6 weeks. Micro Report Status FINAL 07/02/2013 UA MACROSCOPIC WITH REFLEX TO MICRO Component Value Range Color Urine Yellow Appearance Urine Clear Glucose Urine Negative NEG mg/dL Bilirubin Urine Negative NEG Ketones Urine Negative NEG mg/dL Specific [place] Urine 1.020 1.003 - 1.035 Blood Urine Negative NEG pH Urine 5.0 5.0 - 7.0 pH Protein Albumin Urine Negative NEG mg/dL Urobilinogen Urine 0.2 0.2 - 1.0 EU/dL Nitrite Urine Negative NEG Leukocyte Esterase Urine Negative NEG Source Midstream Urine ASSESSMENT/PLAN: 789.06 Abdominal pain, epigastric (primary encounter diagnosis) Comment: Given constellation of symptoms, duration and previous history of ulcers, patient referred for endoscopy for further evaluation. Patient will follow up with PCP. Plan: GASTROENTEROLOGY ADULT REFERRAL +/- PROCEDURE, Comprehensive metabolic panel, CBC with platelets differential, CRP inflammation, Erythrocyte sedimentation rate auto, H Pylori antibody IgG, Lipase, *UA reflex to Microscopic 578.0 Hematemesis Comment: Plan: GASTROENTEROLOGY ADULT REFERRAL +/- PROCEDURE 787.01 Nausea and vomiting Comment: Plan: GASTROENTEROLOGY ADULT REFERRAL +/- PROCEDURE 789.07 Abdominal pain, generalized Comment: Patient referred for screening colonoscopy given symptoms and FH. Plan: GASTROENTEROLOGY ADULT REFERRAL +/- PROCEDURE, Comprehensive metabolic panel, CBC with platelets differential, CRP inflammation, Erythrocyte sedimentation rate auto, *UA reflex to Microscopic 787.91 Diarrhea Comment: Plan: GASTROENTEROLOGY ADULT REFERRAL +/- PROCEDURE V16.0 Family hx of colon cancer Comment: Plan: GASTROENTEROLOGY ADULT REFERRAL +/- PROCEDURE See Patient Instructions Jaylyn Jones PA-C [facility] TICAL SCIENCE CHAIR documented in this encounter Nursing Notes 07/02/2013 9:00 AM CST >> MARIEL Tom Jul 02, 2013 9:18 AM Patient presents with: Vomiting Initial BP 114/60 Pulse 76 Temp 98.1 ??F (36.7 ??C) (Oral) Ht 5' 9 (1.753 m) Wt 266 lb 4.8 oz (120.793 kg) BMI 39.31 kg/m2 Estimated Body mass index is 39.31 kg/(m^2) as calculated from the following: Height as of this encounter: 5' 9(1.753 m). Weight as of this encounter: 266 lb 4.8 oz(120.793 kg). BP completed using cuff size: X-large Mariel Kinney, MA documented in this encounter Plan of Treatment Scheduled Referrals Name Type Priority Associated Diagnoses Order [facility] GASTROENTEROLOGY ADULT Referral Routine Hematemes is Ordered: REFERRAL +/- PROCEDURE Nausea an d vomiting 07/02/2013 Abdominal pain, epigastric Diarrhea Family hx of colon cancer Abdominal pain, generalized documented as of this encounter Procedures Procedure Name Priority Date/Time Associated Comments Diagnosis UA MACROSCOPIC WITH Routine 07/02/2013 9:52 AM Abdominal pain, Results for this REFLEX TO MICRO POLITICAL SCIENCE CHAIR epigastric procedure are in Abdominal pain, the results generalized section. H PYLORI ANTIBODY IGG Routine 07/02/2013 9:52 AM Abdominal terry n, Results for this POLITICAL SCIENCE CHAIR epigastric procedure are i n the results section. CBC WITH PLATELETS & Routine 07/02/2013 9:51 AM Abdominal pain , Results for this DIFFERENTIAL POLITICAL SCIENCE CHAIR epigastric procedure are in Abdominal pain, the results generalized section. LIPASE Routine 07/02/2013 9:51 AM Abdominal pain, Result s for this POLITICAL SCIENCE CHAIR epigastric procedure are i n the results section. ERYTHROCYTE Routine 07/02/2013 9:51 AM Abdominal pain, Result s for this SEDIMENTATION RATE POLITICAL SCIENCE CHAIR epigastric procedure are in AUTO Abdominal pain, the results generalized section. CRP INFLAMMATION Routine 07/02/2013 9:51 AM Abdominal pain, Re sults for this POLITICAL SCIENCE CHAIR epigastric procedure are in Abdominal pain, the results generalized section. COMPREHENSIVE Routine 07/02/2013 9:51 AM Abdominal pain, Resul ts for this METABOLIC PANEL POLITICAL SCIENCE CHAIR epigastric procedure are in Abdominal pain, the results generalized section. documented in this encounter Results *UA reflex to Microscopic (07/02/2013 9:52 AM POLITICAL SCIENCE CHAIR) [facility] Method Time Signature Color Urine Yellow [facility] Appearance Urine Clear [facility] [place] Glucose Urine Negative NEG mg/dL [facility] [place] Bilirubin Urine Negative NEG [facility] [place] Ketones Urine Negative NEG mg/dL [facility] [place] Specific [place] 1.020 1.003 - [place] Urine 1.035 [facility] [place] Blood Urine Negative NEG [facility] [place] pH Urine 5.0 5.0 - 7.0 [place] pH [facility] Protein Albumin Negative NEG mg/dL [place] Urine [facility] Urobilinogen 0.2 0.2 - 1.0 [place] Urine EU/dL [facility] Nitrite Urine Negative NEG [facility] [place] Leukocyte Negative NEG [place] Esterase Urine [facility] [place] Source Midstream [place] Urine [facility] Specimen Anatomical Collection Method Collection Time Receive d Time (Source) Location / / Volume Laterality Urine specimen 07/02/2013 9:52 AM 014 9:57 (specimen) POLITICAL SCIENCE CHAIR AM POLITICAL SCIENCE CHAIR Jaylyn Jones PA-C LAB - URINE ORDERABLES Performing Organization Address City/[facility]/ZIP Code Phon e Number [facility] [address] [place] [phone] H Pylori antibody IgG (07/02/2013 9:52 AM POLITICAL SCIENCE CHAIR) Component Value Ref Test Analysis Performed At Patholo gist Range Method Time Signature Specimen Whole Blood [place] Description [facility] [place] No detectable IgG antibody t o Helicobacter pylori. If current infection is [place] pylori Antibody suspected, please submit a new specimen in 4 to 6 we eks. [facility] [place] Micro Report FINAL 07/02/2013 [facility] Status [facility] Specimen Anatomical Collection Method Collection Time Receive d Time (Source) Location / / Volume Laterality Blood specimen 07/02/2013 9:52 AM 014 9:57 (specimen) POLITICAL SCIENCE CHAIR AM POLITICAL SCIENCE CHAIR Jaylyn Jones PA-C LAB - BLOOD ORDERABLES Performing Organization Address City/[facility]/ZIP Code Phon e Number [address] [address] [phone] Lipase (07/02/2013 9:51 AM POLITICAL SCIENCE CHAIR) P athologist Signature Lipase 221 20 - 250 [facility] Specimen Anatomical Collection Method Collection Time Receive d Time (Source) Location / / Volume Laterality Blood specimen 07/02/2013 9:51 AM 014 9:56 (specimen) POLITICAL SCIENCE CHAIR AM POLITICAL SCIENCE CHAIR Jaylyn Jones PA-C LAB - BLOOD ORDERABLES Performing Organization Address City/State/ZIP Code Phon e Number [facility] [address] [place] [address] [facility] Erythrocyte sedimentation rate auto (07/02/2013 9:51 AM POLITICAL SCIENCE CHAIR) P athologist Signature Sed Rate 8 0 - 15 mm/h [facility] Specimen Anatomical Collection Method Collection Time Receive d Time (Source) Location / / Volume Laterality Blood specimen 07/02/2013 9:51 AM 014 9:56 (specimen) POLITICAL SCIENCE CHAIR AM POLITICAL SCIENCE CHAIR Jaylyn Jones PA-C LAB - BLOOD ORDERABLES Performing Organization Address City/State/ZIP Code Phon e Number [facility] [place] [address] [place] [address] (ABNORMAL) CRP inflammation (07/02/2013 9:51 AM POLITICAL SCIENCE CHAIR) [facility] Method Time Signature CRP Inflammation 10.9 (H) 0.0 - 8.0 [facility] mg/L [facility] Specimen Anatomical Collection Method Collection Time Receive d Time (Source) Location / / Volume Laterality Blood specimen 07/02/2013 9:51 AM 014 9:56 (specimen) POLITICAL SCIENCE CHAIR AM POLITICAL SCIENCE CHAIR Jaylyn Jones PA-C LAB - BLOOD ORDERABLES Performing Organization Address City/[facility]/ZIP Code Phon e Number [address] [address] [facility] CBC with platelets differential (07/02/2013 9:51 AM POLITICAL SCIENCE CHAIR) P athologist Signature WBC 7.6 4.0 - 11.0 [place] 10e9/L [facility] RBC Count 4.63 4.4 - 5.9 [place] 10e12/L [facility] Hemoglobin 13.9 13.3 - 17.7 [place] g/dL [facility] Comment: Results confirmed by repeat raul t Hematocrit 40.7 40.0 - 53.0 % [facility] MCV 88 78 - 100 fl [facility] MCH 30.0 26.5 - 33.0 pg [facility] [place] MCHC 34.2 31.5 - 36.5 g/dL [place] [facility] [place] RDW 13.0 10.0 - 15.0 % [facility] Platelet Count 159 150 - 450 10e9/L [facility] [place] Comment: Results confirmed by repeat raul t Diff Method Automated Method [place] [facility] [place] % Neutrophils 74.3 % [facility] [place] % Lymphocytes 17.2 % [facility] % Monocytes 6.9 % [facility] % Eosinophils 1.5 % [facility] % Basophils 0.1 % [facility] Absolute Neutrophil 5.6 1.6 - 8.3 10e9/L [facility] Absolute Lymphocytes 1.3 0.8 - 5.3 10e9/L [facility] [place] Absolute Monocytes 0.5 0.0 - 1.3 10e9/L [facility] Absolute Eosinophils 0.1 0.0 - 0.7 10e9/L [facility] Absolute Basophils 0.0 0.0 - 0.2 10e9/L [facility] Specimen Anatomical Collection Method Collection Time Receive d Time (Source) Location / / Volume Laterality Blood specimen 07/02/2013 9:51 AM 014 9:56 (specimen) POLITICAL SCIENCE CHAIR AM POLITICAL SCIENCE CHAIR Jaylyn Jones PA-C LAB - BLOOD ORDERABLES Performing Organization Address City/State/ZIP Code Phon e Number [facility] [address] [place] [address] (ABNORMAL) Comprehensive metabolic panel (07/02/2013 9:51 AM POLITICAL SCIENCE CHAIR) athologist Signature Sodium 139 133 - 144 [facility] mmol/L [facility] Potassium 4.4 3.4 - 5.3 [facility] mmol/L [facility] Chloride 106 94 - 109 [facility] mmol/L [facility] Carbon Dioxide 24 20 - 32 [facility] mmol/L [facility] Anion Gap 9 6 - 17 [facility] mmol/L [facility] Glucose 176 (H) 60 - 99 [facility] mg/dL [facility] Urea Nitrogen 12 5 - 24 [facility] mg/dL [facility] Creatinine 0.82 0.66 - [facility] 1.25 mg/dL [facility] GFR Estimate >90 >60 [facility] mL/min/1.7 [facility] m2 GFR Estimate If >90 >60 [place] Black mL/min/1.7 [facility] m2 Calcium 8.9 8.5 - 10.4 [facility] mg/dL [facility] Bilirubin Total 0.4 0.2 - 1.3 [facility] mg/dL [facility] Albumin 3.6 (L) 3.9 - 5.1 [facility] g/dL [facility] Comment: Reference range changed on 01/14. Protein Total 6.6 (L) 6.8 - 8.8 g/dL [place] [facility] Comment: As of 07, reference range reflects plasma specimen type. Alkaline Phosphatase 56 40 - 150 U/L [facility] ALT 49 0 - 70 U/L [facility] AN[facility]ONY AST 36 0 - 45 U/L [facility] ANTHONY Specimen Anatomical Collection Method Collection Time Receive d Time (Source) Location / / Volume Laterality Blood specimen 07/02/2013 9:51 AM 014 9:56 (specimen) POLITICAL SCIENCE CHAIR AM POLITICAL SCIENCE CHAIR Jaylyn Jones PA-C LAB - BLOOD ORDERABLES Performing Organization Address City/State/ZIP Code Phon e Number [facility] [address] [place] [address] documented in this encounter Visit Diagnoses Diagnosis Abdominal pain, epigastric - Primary Hematemesis Nausea and vomiting Nausea with vomiting Abdominal pain, generalized Diarrhea Family hx of colon cancer Family history of malignant neoplasm of gastrointestinal tract documented in this encounter Additional Health Concerns Infection Onset Date Last Indicated Resolved Time MRSA-Contact IsolationComment: Skin 12-25-2012 01/02/2013 documented as of this encounter Care Teams Stacking Machine Operator Relationship Specialty Start Date End Date Jensen Melendez, PCP - General Student in organized 10/31/12 01/13/14 [place] [address] education/training program [place], [place] [id number] documented as of this encounter
--- OUTSIDE RECORDS SUMMARY | 2022-04-14 09:14 | XMS_ITS | Encounter Summary ---
:1975 Author Organization [employer] Address [address] [place] [address]. [place] [address] Care Team Providers Name Role Phone Jensen Melendez MD Primary Care Provider Reason for Visit Reason Onset Date Comments Results 07/04/2013 Encounter Details Date Type Department Care Team Description 07/04/2013 Telephone [facility] ([facility] Eag Jensen Gonzalez, Results [address] [facility] [place] [address] [place] [address] [address] [place] [address] (Wo rk) Social History Tobacco Use Types Packs/Day Years Used Date Smoking Tobacco: Never Smokeless Tobacco: Never Alcohol Use Standard Drinks/Week Comments No 0 (1 standard drink = 0.6 oz pure alcoho l) Sex Assigned at Date Recorded Not on file documented as of this encounter Miscellaneous Notes Telephone Encounter - Hilda Rose RN - 07/04/2013 9:34 AM CST Patient called back and read result note to him. Informed there is inflammation present but test does not tell us specifically where. Recommended he make appointment with PCP after seeing gastro. Has an appointment with them on Mon he thinks for the colonoscopy. Will let him know if there are any further recommendations. Routing to CHRISTIANO Ivey for FYI Please let patient know if you want him to see PCP before Gastro. Bonnie Rose RN [employer] CIRCUIT [employer]INE[employer] Telephone Encounter - Hilda Rose, RN - 07/04/2013 9:14 AM CST Phone call from wanting lab results. We do not have consent to communicate. Recommended he have patient call us or offered to call him. She will have him call. Informed will mail consent to communicate form to him. Bonnie Rose RN [employer] ENGINEER documented in this encounter Plan of Treatment Not on filedocumented as of this encounter Visit Diagnoses Not on filedocumented in this encounter Additional Health Concerns Infection Onset Date Last Indicated Resolved Time MRSA-Contact IsolationComment: Skin 12-25-2012 01/02/2013 documented as of this encounter Care Teams Stogie Packer Relationship Specialty Start Date End Date Jensen Melendez PCP - General Student in organized 10/31/12 01/13/14 [place] [address] education/training program [place], [place] [id number] documented as of this encounter
--- OUTSIDE RECORDS SUMMARY | 2022-04-14 09:14 | XMS_ITS | Encounter Summary ---
:1975 Author Organization [facility] Address [address] [place] [address]. [place] [address] Care Team Providers Name Role Phone No Ref-Primary, Physician Primary Care Provider Reason for Visit Reason Comments RECHECK follow up from ER patient wa s postive for Mersa Encounter Details Date Type Department Care Team Description 10/29/2012 Office Visit [facility] Miquel De Luna, MRSA cellulitis [place] RAMIREZ (Primary Dx) [address] [place] [address] [place] [address] (Wo rk) Social History Tobacco Use Types Packs/Day Years Used Date Smoking Tobacco: Never Smokeless Tobacco: Never Alcohol Use Standard Drinks/Week Comments No 0 (1 standard drink = 0.6 oz pure alcoho l) Sex Assigned at Date Recorded Not on file documented as of this encounter Last Filed Vital Signs Vital Sign Reading Time Taken Comments Blood Pressure 138/90 10/29/2012 1:44 PM CDT Pulse 100 10/29/2012 1:44 PM CDT Temperature 36.8 ??C (98.3 ??F) 10/29/2012 1:44 PM CDT Respiratory Rate 20 10/29/2012 1:44 PM CDT Oxygen Saturation 98% 10/29/2012 1:44 PM CDT Inhaled Oxygen Concentration - - Weight - - Height 177.8 cm (5' 10) 10/29/2012 1:44 PM CDT Body Mass Index - - documented in this encounter Patient Instructions Patient InstructionsFossMiquel MD - 10/29/2012 2:21 PM CDT 1) Continue taking clindamycin for 1 more day and start taking doxycycline today for 10 days. Do notgo in sun while on doxycycline. 2) Repeat labs today with blood cultures and repeat inflammatory cultures 3) Let us know if symptoms not improving in the next 1-2 days and we will get you in to see Dr. Abdi. 4) Start taking Miralax or other stool softener while taking the Percocet for pain. Miquel De Luna MD Internal Medicine and Pediatrics, MP-3 documented in this encounter Progress Notes David Abdi MD - 10/30/2012 10:45 AM CDT I have reviewed the documentation from Dr. De Luna, met with and examined the patient independently. I discussed the findings with the patient, and agree with the documentation of Dr. De Luna. ROS: GEN: NO fevers, chills SKIN: Per DR. De Luna note RESP: No cough, SOB CV: No CP, palp, PND GI: No N, V, D BP 138/90 Pulse 100 Temp 98.3 ??F (36.8 ??C) Resp 20 Ht 5' 10 (1.778 m) SpO2 98% SKIN: Left arm w/ 7 x 5 cm area of erythema, central ulceration with serosanguinous fluid draining. Not warm to the touch. Plan : per note of Dr. De Luna. iMquel De Luna MD - 10/29/2012 1:43 PM CDT SUBJECTIVE: Kaiden Reyna is a 37 year old male who presents to clinic today for the following health issues: ED/UC Followup: Facility: [facility] ([place], [place]) Date of visit: 10/26/2012 Reason for visit: tested positive for MRSA Current Status: not feeling well. Mr. Reyna presents for f/u hospitalization for MRSA wound on left arm. He noted an area of erythema with swelling on his arm and went to a [facility] and had an I and D on 10/24/12. He was startedon Bactrim for coverage for MRSA but wound continued to get worse with associated erythema going up his forearm. He presented to [facility] ([place], [place]) and was started on vancomycin, which was changed to clindamycin. Wound culture from [facility] was positive for MRSA sensitive to doxycycline, clindamycin, and bactrim. He was transitioned from IV clindamycin to PO clindamycin and discharged on 10/28 from the hospital. He was evaluated by surgery but did not require intervention. Blood culture from 10/26 has been positive for gram positive cocci without type of bacteria resulted yet. Patient notes that swelling over the left forearm is better but still with some pain around the edges, pain 5/10. Wound 50% improved from presentation. He believes the area is less red overall but withsome deep purple coloring around wound- and question if slightly more red today. He has generally felt fatigued and did feel slightly diaphoretic last night. No recorded fevers. His abdomen has generally felt uncomfortable and he feels slightly constipated. No chest pain, no shortness of breath. He has felt slightly dizzy at times with the room spinning. No lightheadedness. Glucoses have been around 130-140. 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 Fluid is being tested for MRSA. Patient Active Problem List Diagnosis ??? Cellulitis and abscess ??? DM (diabetes mellitus) ROS: 5 point ROS negative, slight nasal congestion, ears slightly plugged Objective: Filed Vitals: 10/29/12 1344 BP: 138/90 Pulse: 100 Temp: 98.3 ??F (36.8 ??C) Resp: 20 SpO2: 98% General: alert, interactive, NAD HEENT: sclerae clear, MMM, right TM with small amount of fluid Neck: supple without LAD CV: RRR, no m/r/c Resp: clear bilaterally, no wheezing or crackles Abdomen: +bs, non-tender, non-distended Ext: wound on left forearm ~ 7 cm x 5 cm in size with small amount of sanguinous drainage, no area of fluctuance, normal capillary refill and perfusion to left hand. Assessment and Plan: 2.9, 041.12 MRSA cellulitis (primary encounter diagnosis) Comment: no clear area requiring drainage. Blood culture results pending from previous hospitalization. Does not appear to be staph aureus per micro but final testing pending and need to be verified. If blood culture is positive for staph, will need Echo. Plan: Blood culture, Blood culture, CRP, inflammation, Comprehensive metabolic panel (BMP + Alb, Alk Phos, ALT, AST, Total. Bili, TP), CBC with platelets and differential, doxycycline (VIBRAMYCIN) 100 MG capsule Patient Instructions 1) Continue taking clindamycin for 1 more day and start taking doxycycline today for 10 days. Do notgo in sun while on doxycycline. 2) Repeat labs today with blood cultures and repeat inflammatory cultures 3) Let us know if symptoms not improving in the next 1-2 days and we will get you in to see Dr. Abdi. 4) Start taking Miralax or other stool softener while taking the Percocet for pain. Miquel De Luna MD Internal Medicine and Pediatrics, MP-3 documented in this encounter Nursing Notes 10/29/2012 1:45 PM CDT >> MIGUEL KRAUS Mon Oct 29, 2012 1:47 PM Patient presents with: RECHECK - follow up from ER patient was postive for [place] Initial BP 138/90 Pulse 100 Temp 98.3 ??F (36.8 ??C) Resp 20 Ht 5' 10 (1.778 m) SpO2 98% Estimated Body mass index is 38.43 kg/(m^2) as calculated from the following: Height as of this encounter: 5' 10(1.778 m). Weight as of 10/26/12: 267 lb 13.7 oz(121.5 kg). BP completed using cuff size: regular, left arm KZ_MA documented in this encounter Plan of Treatment Not on filedocumented as of this encounter Procedures Procedure Name Priority Date/Time Associated Comments Diagnosis CBC WITH PLATELETS & Routine 10/29/2012 2:33 PM MRSA celluliti s Results for this DIFFERENTIAL CDT procedure are i n the results section. CRP INFLAMMATION Routine 10/29/2012 2:33 PM MRSA cellulitis Re sults for this CDT procedure are i n the results section. COMPREHENSIVE Routine 10/29/2012 2:33 PM MRSA cellulitis Resul ts for this METABOLIC PANEL CDT procedure ar e in the results section. BLOOD CULTURE Routine 10/29/2012 2:33 PM MRSA cellulitis Resul ts for this CDT procedure are i n the results section. BLOOD CULTURE Routine 10/29/2012 2:32 PM MRSA cellulitis Resul ts for this CDT procedure are i n the results section. documented in this encounter Results CBC with platelets and differential (10/29/2012 2:33 PM CDT) [facility] Method Time Signature WBC 7.2 4.0 - [facility] 11.0 [facility] 10e9/L LAB RBC Count 5.35 4.4 - 5.9 [place] 10e12/L [facility] Hemoglobin 15.6 13.3 - [facility] 17.7 g/dL [facility] Hematocrit 44.3 40.0 - [facility] 53.0 % [facility] MCV 83 78 - 100 [place] fl [facility] MCH 29.2 26.5 - [facility] 33.0 pg [facility] MCHC 35.2 31.5 - [facility] 36.5 g/dL [facility] RDW 12.8 10.0 - [facility] 15.0 % [facility] Platelet Count 201 150 - 450 [place] 10e9/L [facility] Diff Method Automated [place] Method [facility] % Neutrophils 67.6 % [facility] % Lymphocytes 22.9 % [facility] % Monocytes 8.0 % [facility] % Eosinophils 1.4 % [facility] % Basophils 0.1 % [facility] Absolute 4.9 1.6 - 8.3 [place] Neutrophil 10e9/L [facility] Absolute 1.7 0.8 - 5.3 [facility] Lymphocytes 10e9/L [facility] Absolute 0.6 0.0 - 1.3 [facility] Monocytes 10e9/L [facility] Absolute 0.1 0.0 - 0.7 [facility] Eosinophils 10e9/L [facility] Absolute 0.0 0.0 - 0.2 [place] Basophils 10e9/L [facility] Specimen Anatomical Collection Method Collection Time Receive d Time (Source) Location / / Volume Laterality Blood specimen 10/29/2012 2:33 PM 013 2:35 (specimen) CDT PM CDT David Abdi MD LAB - BLOOD ORDERABLES Performing Organization Address City/State/ZIP Code Phon e Number [facility] [address] [facility] [place] [address] [phone] [facility] [address] [facility] [place] [address] (ABNORMAL) Comprehensive metabolic panel (BMP + Alb, Alk Phos, ALT, AST, Total. Bili, TP) (10/29/2012 2:33 PM CDT) athologist Signature Sodium 141 133 - 144 [place] mmol/L [facility] Potassium 4.1 3.4 - 5.3 [place] mmol/L [facility] Chloride 101 94 - 109 [place] mmol/L [facility] Carbon Dioxide 26 20 - 32 [place] mmol/L [facility] Anion Gap 14 6 - 17 [place] mmol/L [facility] Glucose 136 (H) 60 - 99 [place] mg/dL [facility] Urea Nitrogen 20 5 - 24 [place] mg/dL [facility] Creatinine 0.94 0.66 - [facility] 1.25 mg/dL [facility] GFR Estimate >90 >60 [place] mL/min/1.7 [facility] m2 LAB GFR Estimate If >90 >60 [place] Black mL/min/1.7 [facility] m2 LAB Calcium 9.3 8.5 - 10.4 [place] mg/dL [facility] Bilirubin Total 0.4 0.2 - 1.3 [place] mg/dL [facility] Albumin 4.2 3.9 - 5.1 [place] g/dL [facility] Comment: Reference range changed on 01/14. Protein Total 7.7 6.8 - 8.8 g/dL [facility] Comment: As of 07, reference range reflects plasma specimen type. Alkaline Phosphatase 81 40 - 150 U/L [facility] ALT 69 0 - 70 U/L [facility] LAB AST 42 0 - 45 U/L [facility] Specimen Anatomical Collection Method Collection Time Receive d Time (Source) Location / / Volume Laterality Blood specimen 10/29/2012 2:33 PM 013 2:35 (specimen) CDT PM CDT David Abdi MD LAB - BLOOD ORDERABLES Performing Organization Address City/State/ZIP Code Phon e Number [facility] [address] [place] [address] [phone] [facility] [address] [place] [address] (ABNORMAL) CRP, inflammation (10/29/2012 2:33 PM CDT) [facility] Method Time Signature CRP Inflammation 14.0 (H) 0.0 - 8.0 [facility] mg/L [facility] Specimen Anatomical Collection Method Collection Time Receive d Time (Source) Location / / Volume Laterality Blood specimen 10/29/2012 2:33 PM 013 2:35 (specimen) CDT PM CDT David Abdi MD LAB - BLOOD ORDERABLES Performing Organization Address City/[facility]/ZIP Code Phon e Number [address] [facility] Blood culture (10/29/2012 2:33 PM CDT) Component Value Ref Test Analysis Performed At [facility] Range Method Time Signature Specimen Blood Right [facility] Description Hand MICROBIOLOGY Special Aerobic and [facility] Requests anaerobic MICROBIOLOGY bottles received Culture Micro No growth [facility] MICROBIOLOGY Micro Report FINAL [facility] Status 11/04/2012 MICROBIOLOGY Specimen Anatomical Collection Method Collection Time Receive d Time (Source) Location / / Volume Laterality Blood specimen 10/29/2012 2:33 PM 013 7:44 (specimen) CDT PM CDT David Abdi MD LAB - MICRO GENERAL ORDERABL ES Performing Organization Address City/State/ZIP Code Phon e Number [facility] [address] [facility] MICROBIOLOGY Blood culture (10/29/2012 2:32 PM CDT) Component Value Ref Test Analysis Performed At [facility] Range Method Time Signature Specimen Blood [facility] Description Unspecified MICROBIOLOGY Site Culture Micro No growth [facility] MICROBIOLOGY Micro Report FINAL [facility] Status 11/04/2012 MICROBIOLOGY Specimen Anatomical Collection Method Collection Time Receive d Time (Source) Location / / Volume Laterality Blood specimen 10/29/2012 2:32 PM 013 7:45 (specimen) CDT PM CDT David Abdi MD LAB - MICRO GENERAL ORDERABL ES Performing Organization Address City/State/ZIP Code Phon e Number [facility] [address] [place] [address] [facility] MICROBIOLOGY documented in this encounter Visit Diagnoses Diagnosis MRSA cellulitis - Primary Cellulitis and abscess of unspecified si te documented in this encounter Care Teams [employer] Programs Director Relationship Specialty Start Date End Date No Ref-Primary, Physician PCP - General 10/26/12 10/30/12 documented as of this encounter
--- OUTSIDE RECORDS SUMMARY | 2022-04-14 09:14 | XMS_ITS | Encounter Summary ---
:1975 Author Organization [facility] Address [address] [place] [address]. [place] [address] Care Team Providers Name Role Phone Jensen Melendez MD Primary Care Provider [phone] Reason for Visit Reason Comments Cellulitis Encounter Details Date Type Department Care Team Description 12/26/2012 Emergency [facility] Phillip Malone MD Cellulitis and [facility] Emergency Dep t [facility] abscess (Primary Dx) [address] [place], [place] [address] [employer] [id number] [place] [address] [place], [place] [id number] (Wo rk) Social History Tobacco Use Types Packs/Day Years Used Date Smoking Tobacco: Never Smokeless Tobacco: Never Alcohol Use Standard Drinks/Week Comments No 0 (1 standard drink = 0.6 oz pure alcoho l) Sex Assigned at Date Recorded Not on file documented as of this encounter Last Filed Vital Signs Vital Sign Reading Time Taken Comments Blood Pressure 129/74 12/26/2012 6:32 PM CDT Pulse 103 12/26/2012 4:58 PM CDT Temperature 36.7 ??C (98 ??F) 12/26/2012 4:58 PM CDT Respiratory Rate 16 12/26/2012 4:58 PM CDT Oxygen Saturation 99% 12/26/2012 6:33 PM CDT Inhaled Oxygen Concentration - - Weight - - Height - - Body Mass Index - - documented in this encounter Discharge Instructions Discharge InstructionsPhillip Malone MD - 12/26/2012 6:09 PM CDT Discharge Instructions Cellulitis Cellulitis is an infection of the skin that occurs when bacteria enter the skin. Symptoms are generally redness, swelling, warmth and pain. Your infection appeared to be appropriate to treat at home with antibiotics. However, sometimes your infection may be worse than it seemed at first, or may worsenwith time. If you have new or worse symptoms, you may need to be seen again in the emergency department or by your primary doctor Return to the Emergency Department if: The redness, pain, or swelling gets a lot worse. If the red area was marked, return if it is red beyond the marked area. You are unable to get your antibiotics, or are vomiting them up or you can???t take them. You are feeling more ill, weak or lightheaded. You start to run a new fever (temperature >101) Anything else about the infection worries or concerns you. Treatment: Start your antibiotics right away, and take [...] this can cause ge or skin injury. Rest your injured area for at least 1-2 days. After that you may start using your extremity again as long as there is not too much pain. Raise the injured area above the level of your heart as much as possible in the first 1-2 days. Acetaminophen (Tylenol or generic) or ibuprofen (Motrin, Advil, or generic) help reduce pain and fever and may help you feel more comfortable. Be sure to read and follow the package directions, and ask your doctor if you have questions. Follow-up with your doctor: Re-check in clinic within 2-3 days Remember that you can always come back to the Emergency Department if you are not able to see your regular doctor in the amount of time listed above, if you get any new symptoms, or if there is anything that worries you. Discharge Instructions Boils or Abscesses, MRSA Skin [...] if there is anything that worries you. documented in this encounter Medications at Time of Discharge Medication Sig Dispensed Refills Start Date End Date KERA NOT PRESCRIBED, 1 each continuous 0 each 0 3 05/30/2013 INTENTIONAL,Indications prn. KERA Inhibitor : DM (diabetes not prescribed due to mellitus) (H) Other: BP under control, concern for hypotension. acetaminophen-codeine Take 1 tablet by 10 tablet 0 12/26/19 13 05/30/2013 (TYLENOL #3) 300-30 MG mouth every 4 hours per tabletIndications: as needed for pain Abscess and cellulitis clindamycin (CLEOCIN) Take 1 capsule (300 30 capsule 0 12/2501/02/2013 300 MG mg) by mouth 3 times capsuleIndications: daily Abscess and cellulitis metFORMIN Take 2 tablets by 180 tablet 1 11/07/2012 014 (GLUCOPHAGE-XR) 500 MG mouth 2 times daily 24 hr (with meals). tabletIndications: DM (diabetes mellitus) (H) documented as of this encounter ED Notes Phillip Malone MD - 12/26/2012 5:01 PM CDT History Chief Complaint: Wound check. HPI Kaiden Reyna is a 37 year old male with a history of type II diabetes who presents to the ED for evaluation of a wound. The patient states that yesterday was diagnosed with an abscess and cellulitisto his medial left upper thigh by his primary physician, and subsequently underwent incision, drainage, and packing of the abscess in the office. He was taken off the Bactrim he had been taking (for sinusitis diagnosed on 12/18/2012), and was placed on Clindamycin for this wound. The patient states thatsince that time the redness surrounding the wound has spread beyond the boundaries he marked, prompting his visit to the ED. He states his pain is about the same, currently rated at a 6/10 in severity.He reports feeling somewhat generally fatigued, but he denies any other symptoms. The patient voicesno other concerns or complaints at this time. Allergies: Penicillins Vancomycin Medications: Tylenol #3 Glucophage Cleocin Past Medical History: Hyperthyroidism. Thyroiditis. Diabetes mellitus, type II. Family History: Positive for Lupus, autoimmune hepatitis, CAD, uterine cancer. Social History: The patient denies use of tobacco, alcohol, or illicit drugs. Review of Systems Musculoskeletal: Positive for recently drained abscess with surrounding redness, left upper thigh. All other systems reviewed and are negative. Physical Exam First Vitals: BP: 134/88 mmHg Pulse: 103 Temp: 98 ??F (36.7 ??C) Resp: 16 SpO2: 98 % Physical Exam Constitutional: He is oriented to person, place, and time. He appears well- developed. No distress. Well appearing. HENT: Head: Normocephalic. Mouth/Throat: Oropharynx is clear and moist. Eyes: EOM are normal. Pupils are equal, round, and reactive to light. Neck: Neck supple. Cardiovascular: Normal rate, regular rhythm and normal heart sounds. Exam reveals no gallop and no friction rub. No murmur heard. Pulmonary/Chest: Effort normal and breath sounds normal. No respiratory distress. He has no wheezes.He has no rales. Abdominal: Soft. He exhibits no distension. There is no tenderness. There is no rebound and no guarding. Musculoskeletal: Normal range of motion. He has 2cm incision site along with previous abscess. 5cm surrounding erythema surrounding incisionsite. Neurological: He is alert and oriented to person, place, and time. Moves all 4 extremities spontaneously. Left leg is intact. Skin: No rash noted. No pallor. Erythema surrounding incision site. Emergency Department Course Laboratory: CBC: All WNL (WBC 6.8, HGB 13.5, HCT 40.5, PLTs 169) BMP: Glucose 196 (High), o/w WNL (Cr 0.97) Blood Culture x2: Results Pending. Procedures: [facility] Procedure Note Limited Bedside ED Ultrasound of Soft Tissue: PROCEDURE: PERFORMED BY: Dr. Malone INDICATIONS/SYMPTOM: Abscess and cellulitis.y PROBE: High frequency linear probe BODY LOCATION: Soft tissue located on extremity FINDINGS: Cobblestoning of soft tissue: present Hypoechoic fluid (ie abscess) identified: absent INTERPRETATION: The soft tissue and muscle layers were evaluated. Findings indicate cellulitis and no abscess. IMAGE DOCUMENTATION: Images were archived to hard copy on paper chart. PROCEDURE: Repacking of abscess. TECHNIQUE: Packing strip removed, wound was packed with 1/4'?? Iodoform gauze. Interventions: Clindamycin, 600mg, IV NS, 500mL, IV ED Course: After reviewing nursing notes and the patient's past medical history, I examined the patient here inthe emergency department. I discussed with him the plan of care including laboratory workup and bedside ultrasound and he was in agreement with this plan. Peripheral IV was inserted and the patient received the above interventions. Blood was drawn and sent for laboratory testing, results above. Bedside ultrasound performed and wound repacked, as noted above. After observation here in the emergency department, I reassured the patient regarding his symptoms and discussed with him outpatient management and supportive care at home. I also reviewed with him signs and symptoms to watch and return for. The patient agreed with discharge and will follow up with his primary physician. With reasonable clinical confidence, I believe that the patient is stable to receive further medical care as an outpatient. Impression & Plan Medical Decision Makin37 year old male that came in with abscess that was I&Ded yesterday by PMD. Cultures already coming back with staph. He was previously admitted here two months ago with a positive MRSA susceptible to Clindamycin. He just recently finished a course of Bactrim for sinusitis. He has been on Clindamycin for one day and the area of erythema has expanded beyond that. I did evaluate his current incisionand drainage area with ultrasound to evaluate for possible further fluid collection or abscess. It appears to be negative. I did evaluate blood work as well as blood cultures are currently pending. He has no elevated white count here. Due to the fact that he did just recently finish a course of Bactrim and was previously susceptible to Clindamycin previously, I do believe that his clindamycin may need more time for his cellulitis. It has progressed slightly further than yesterday. It is slightly less than 5cm, I do not believe it has expanded beyond and/or has systemic symptoms that would require ad mission. At this time I do believe with patient is safe for discharge with further outpatient trial.He is in agreement with this plan. I did repack his wound and noted no further drainage. At this time, that patient is being given a dose of IV Clindamycin. He is told to continue his Clindamycin, and to follow up with his primary doctor in one day, and to return for any significant expanding erythema, fever, any symptoms, or concern. Diagnosis: 1. Cellulitis. 2. Abscess. Disposition Plan: Home. Follow up with PMD. I, Gunnar Parish, am serving as a scribe on 12/26/2012 at 5:01 PM to personally document services performed by Dr. Malone based on my observations and the provider's statements to me. Gunnar Lugo 12/26/2012 [facility] EMERGENCY DEPARTMENT Phillip Malone MD 12/27/12 1231 Meagan Chávez RN - 12/26/2012 4:56 PM CDT Patient presents to the ER with increasing erythema around an abscess site. Patient states had abscess drained yesterday, but redness has continued to spread. documented in this encounter Plan of Treatment Not on filedocumented as of this encounter Procedures Procedure Name Priority Date/Time Associated Comments Diagnosis BLOOD CULTURE STAT 12/26/2012 5:50 PM Results for this CDT procedure are i n the results section. CBC WITH PLATELETS & STAT 12/26/2012 5:45 PM R esults for this DIFFERENTIAL CDT procedure are i n the results section. BLOOD CULTURE STAT 12/26/2012 5:45 PM Results for this CDT procedure are i n the results section. BASIC METABOLIC PANEL STAT 12/26/2012 5:45 PM Results for this CDT procedure are i n the results section. HIM IMAGING SCAN STAT 12/26/2012 documented in this encounter Results Blood culture (12/26/2012 5:50 PM CDT) Component Value Ref Test Analysis Performed At [facility] gist Range Method Time Signature Specimen Blood Left [facility] Description Hand HOSPITAL LAB Special Aerobic and [facility] Requests anaerobic HOSPITAL LAB bottles received Culture Micro No growth [facility] MICROBIOLOGY Micro Report FINAL [facility] Status 01/01/2013 MICROBIOLOGY Specimen Anatomical Collection Method Collection Time Receive d Time (Source) Location / / Volume Laterality Blood specimen 12/26/2012 5:50 PM 013 (specimen) CDT 12:25 AM CDT Phillip Malone MD LAB - MICRO GENERAL ORDERABL ES Performing Organization Address City/State/ZIP Code Phon e Number [id number] [place] [address] LAB [facility] MICROBIOLOGY CBC with platelets differential (12/26/2012 5:45 PM CDT) [facility] gist Method Time Signature WBC 6.8 4.0 - [place] 11.0 [facility] LAB RBC Count 4.61 4.4 - 5.9 [place] 10e12/L [facility] LAB Hemoglobin 13.5 13.3 - [place] 17.7 g/dL [facility] LAB Hematocrit 40.5 40.0 - [place] 53.0 % [facility] LAB MCV 88 78 - 100 [place] fl [facility] LAB MCH 29.3 26.5 - [facility] 33.0 pg [facility] LAB MCHC 33.3 31.5 - [facility] 36.5 g/dL [facility] LAB RDW 12.6 10.0 - [place] 15.0 % [facility] LAB Platelet Count 169 150 - [address] LAB Diff Method Automated [facility] LAB % Neutrophils 73.8 % [facility] LAB % Lymphocytes 20.7 % [facility] LAB % Monocytes 4.4 % [facility] LAB % Eosinophils 1.0 % [facility] LAB % Basophils 0.0 % [facility] LAB % Immature 0.1 % [place] Granulocytes [facility] LAB Absolute 5.0 1.6 - 8.3 [place] Neutrophil 10e9/L [facility] LAB Absolute 1.4 0.8 - 5.3 [place] Lymphocytes 10e9/[facility] LAB Absolute 0.3 0.0 - 1.3 [place] Monocytes 10e9/[facility] LAB Absolute 0.1 0.0 - 0.7 [place] Eosinophils 10e9[facility] LAB Absolute 0.0 0.0 - 0.[address] [place] Basophils [address] LAB Abs Immature 0.0 0 - 0.4 [place] Granulocytes [address] [place] [address] LAB Specimen Anatomical Collection Method Collection Time Receive d Time (Source) Location / / Volume Laterality Blood specimen 12/26/2012 5:45 PM 013 5:54 (specimen) CDT PM CDT Phillip Malone MD LAB - BLOOD ORDERABLES Performing Organization Address City/State/ZIP Code Phon e Number [place] [address] [place], [place] [address] [facility] LAB Blood culture (12/26/2012 5:45 PM CDT) Component Value Ref Test Analysis Performed At Patholo gist Range Method Time Signature Specimen Blood Left [facility] LAB Special Aerobic and [facility] anaerobic HOSPITAL LAB bottles received Culture Micro No growth [facility]CRO[facility]OLOG[facility] Micro Report FINAL [facility] Status 01/01/2013 MICROBIOLOGY Specimen Anatomical Collection Method Collection Time Receive d Time (Source) Location / / Volume Laterality Blood specimen 12/26/2012 5:45 PM 013 (specimen) CDT 12:25 AM CDT Phillip Malone MD LAB - MICRO GENERAL ORDERABL ES Performing Organization Address City/State/ZIP Code Phon e Number [address] [address] [facility] LAB [facility] MICROBIOLOGY (ABNORMAL) Basic metabolic panel (12/26/2012 5:45 PM CDT) P athologist Signature Sodium 139 133 - 144 [place] mmol/L [facility] LAB Potassium 4.4 3.4 - 5.3 [place] mmol/L [facility] LAB Chloride 100 94 - 109 [place] mmol/L [facility] LAB Carbon Dioxide 27 20 - 32 [place] mmol/L [facility] LAB Anion Gap 13 6 - 17 [place] mmol/L [facility] LAB Glucose 196 (H) 60 - 99 [place] mg/dL [facility] LAB Urea Nitrogen 18 5 - 24 [place] mg/dL [facility] LAB Creatinine 0.97 0.66 - [facility] 1.25 mg/dL [facility] LAB GFR Estimate 88 >60 [place] mL/min/1.[address] LAB GFR Estimate If >90 >60 [place] Black mL/min/[address] [place] [address] LAB Calcium 8.9 8.5 - 10.4 [place] mg/dL [facility] LAB Specimen Anatomical Collection Method Collection Time Receive d Time (Source) Location / / Volume Laterality Blood specimen 12/26/2012 5:45 PM 08/14/2 013 5:54 (specimen) CDT PM CDT Phillip Malone MD LAB - BLOOD ORDERABLES Performing Organization Address City/State/ZIP Code Phon e Number M [facility] [address] [place] [address] [facility] LAB EMERGENCY LIMITED ULTRASOUND REPORT - HIM Imaging Scan (12/26/2012) Anatomical Region Laterality Modality Other Narrative This result has an attachment that is no t available. Phillip Malone MD IMG DIAGNOSTIC IMAGING ORDER TOSIN documented in this encounter Visit Diagnoses Diagnosis Cellulitis and abscess - Primary Cellulitis and abscess of unspecified si te documented in this encounter Administered Medications Inactive Administered Medications - up to 3 most recent administrations Medication Order MAR Action Action Date Dose Rate Site clindamycin (CLEOCIN) IVPB New Bag 12/26/2012 6:01 PM CDT 600 mg 100 mL/hr 600 mg STAT, 600 mg, Intravenous, ONCE, On Mon12/26/12 at 1745, For 1 dose, Indications: Skin and Soft Tissue Infection sodium chloride 0.9 % BOLUS 500 mL New Bag 12/26/2012 5:40 PM CDT 500 mLs 500 mL/hr Intravenous, 500 mL, ONCE, at 500 mL/hr, Administer over 1 Hours, On Mon12/26/12 at 1730, For 1 dose documented in this encounter Active and Recently Administered Medications Times are shown in CDT. Scheduled Medication Order 12/24/2012 12/25/2012 12/26/2012 clindamycin (CLEOCIN) IVPB 600 mg (COMPLETED) 180 (New Bag - Provider: Meagan Chávez RN)1837 (Stopped - Provider: Sil Taylor, RN) STAT, 600 mg, Intravenous, ONCE, On Mon12/26/12 at 1745, For 1 dose, Indications: Skin and Soft Tissue Infection sodium chloride 0.9 % BOLUS 500 mL (COMPLETED) 1740 (New Bag - Provider: Marily López RN)183 (Stopped - Provider: Sil Taylor, RN) Intravenous, 500 mL, ONCE, at 500 mL/hr, for 1 Hours, Mon12/26/12 at 1730, For 1 dose documented in this encounter Care Teams Claims Sorter Relationship Specialty Start Date End Date Jensen Melendez, PCP - General Student in organized 10/31/12 01/13/14 [place] [address] education/[place] [address] documented as of this encounter
--- OUTSIDE RECORDS SUMMARY | 2022-04-14 09:14 | XMS_ITS | Encounter Summary ---
:1975 Author Organization [place] Address [address] [place] [address]. [place] [address] Care Team Providers Name Role Phone Jensen Melendez MD Primary Care Provider [phone] Reason for Visit Reason Comments Diabetes check on labs as well RECHECK derm Encounter Details Date Type Department Care Team Description 11/07/2012 Office Visit [facility] Jensen Melendez Routine p hysical examination (Primary Dx); Clifton Pierce MD DM (diabetes mellitus) (H); [address] [facility] Hyperthyroidism; [place] [id number] 224 Cellulitis and abscess; [phone] [place], [place] Erectile dys function [address] (Wo rk) Social History Tobacco Use Types Packs/Day Years Used Date Smoking Tobacco: Never Smokeless Tobacco: Never Alcohol Use Standard Drinks/Week Comments No 0 (1 standard drink = 0.6 oz pure alcoho l) Sex Assigned at Date Recorded Not on file documented as of this encounter Last Filed Vital Signs Vital Sign Reading Time Taken Comments Blood Pressure 108/70 11/07/2012 2:10 PM CDT Pulse 77 11/07/2012 2:10 PM CDT Temperature 36.6 ??C (97.8 ??F) 11/07/2012 2:10 PM CDT Respiratory Rate - - Oxygen Saturation - - Inhaled Oxygen Concentration - - Weight 120.7 kg (266 lb) 11/07/2012 2:10 PM CDT Height - - Body Mass Index 37.1 11/05/2012 4:50 PM CDT documented in this encounter Patient Instructions Patient InstructionsJensen Melendez MD - 11/07/2012 3:07 PM CDT Today we are going to check many different labs regarding your diabetes and thyroid issues. I will call with the results as they become available. Start taking Metformin XR 1000 mg orally two times daily. Come in to clinic fasting to get your lipid panel and cortisol level drawn. documented in this encounter Progress Notes Nadira Calabrese MD - 11/09/2012 4:00 PM CDT Quick Note: Please send result letter with labs. Thanks! Dear Kaiden, 1. Your blood counts, thyroid function tests, HIV, Hepatitis C, Syphilis, liver function, kidney function and microalbumin (protein in urine) 2. Your hemoglobin a1c is 7.1% - your goal is less than 7%. We recommending taking 1000 mg (2 pills) of the metformin once a day. Please let us know if you have any questions. Sincerely, Jensen Melendez MD and Nadira Calabrese MD Internal Medicine/Pediatrics Jensen Melendez MD - 11/07/2012 2:12 PM CDT SUBJECTIVE: Kaiden Reyna is a 37 year old male who presents to clinic today for the following health issues: Diabetes Follow-up Patient is checking blood sugars: three times daily. Results are as follows: ?? am - 106-180 ?? lunchtime - 106-180 ?? suppertime - 106-180 ?? Symptoms of hypoglycemia (low blood sugar): shaky, dizzy, weak, lethargy, blurred vision, confusion ?? Paresthesias (numbness or burning in feet) or sores: Yes numbness and tingling ?? Diabetic eye exam within the last year: No ?? Amount of exercise or daily activities, outside of work: 0 day(s) per week ?? Problems taking medications regularly No ?? Medication side effects: Possible diarrhea ?? Diet: Pt is careful of carb intake Would also like to discuss diarrhea and check arm Lupus concern- possible testing- family hx HPI: Kaiden Reyna is a 37 year old male who presents to clinic today with many concerns including diabetes managment and check up, recent diagnosis of hyperthyroidism without treatment, erectile dysfunction and concern for autoimmune disease such as lupus. Regarding the patient's diabetes, he reports he was diagnosed a few years ago while living in [place]. The patient reports that he currently checks his blood sugars 2-3 times daily. He reports that his sugars usually range from the 100-180 range. He is currently taking Metformin 500 mg BID as he did not tolerate 1000 mg daily. The patient also reports that he has insulin that he takes wheneverhis blood sugars get real high. He reports that he has experienced some blurry vision recently andhas not had an eye exam in the past year. Kaiden currently denies any numbness or tingling in his upper or lower extremities. Regarding his hyperthyroidism, Kaiden reports that when he was still living in [place], he went to see a physician for tachycardia and at that time was diagnosed with hyperthyroidism. He stateshe was not started on any treatment at that time and has not had his thyroid followed up since. The patient reports a diffusely positive review of symptoms including fatigue, night sweats, blurry vision, fullness in his neck, nausea, diarrhea, myalgias, arthritis, nail irregularities and pigmentation.He reports that he has also been having occasional twitching in his upper exstremities as well. The patient states he has been having diarrhea the past 4 days. He has recently completed a 10 day course of doxycycline for a MRSA cellulitis of his arm. He had a CDiff PCR which was negative. He states that his cellulitis has improved. Finally, the patient reports that he has been having erectile dysfunction. He reports that for the past 1.5 years he has had difficulty maintaining an erection. He reports that he is able to achieve anerection but having difficulty keeping it. He reports waking up in the morning with firm erections. He is able to achieve an erection and orgasm with masturbation. He does report that his appears to beaffecting his relationship with his . Past Medical History Diagnosis Date ??? Diabetes mellitus ??? Thyroiditis ??? Cellulitis Frequent skin infections and boils since childhood Family History Problem Relation Age of Onset [...] Paternal Grandfather ??? Diabetes Paternal Grandmother ROS: CONSTITUTIONAL:POSITIVE for fatigue, malaise and sweats INTEGUMENTARY/SKIN: POSITIVE for nail changes and frequent skin infections/cellulitis EYES: POSITIVE for blurred vision bilateral ENT/MOUTH: NEGATIVE for epistaxis, hearing loss and hoarse voice R: NEGATIVE for significant cough or SOB B: NEGATIVE for masses, tenderness or discharge CV: NEGATIVE for chest pain, palpitations or peripheral edema GI: POSITIVE for diarrhea and nausea and NEGATIVE for constipation, dysphagia, hematemesis, hematochezia and jaundice male :positive for and erectile dysfunction MUSCULOSKELETAL:POSITIVE for arthralgias in hips, knees, ankles and hands and muscle spasm in upper extremities NEURO: NEGATIVE for weakness, dizziness or paresthesias ENDOCRINE: abdominal strea, Hx thyroid disease and impotence H: NEGATIVE for bleeding problems PSYCHIATRIC: POSITIVE fordepressed mood Problem list, Medication list, Allergies, and Medical/Social/Surgical histories reviewed in EPIC andupdated as appropriate. OBJECTIVE: BP 108/70 Pulse 77 Temp 97.8 ??F (36.6 ??C) (Tympanic) Wt 266 lb (120.657 kg) General: obese white male, NAD, alert and oriented HEENT: NC/AT, right TM has white scar present on posterior surface, EOMI, PERRL, sclera anicteric, Oropharynx/Nasalpharynx pink and moist, thyroid enlarged and palpable, trachea midline Lungs: CTA bilaterally, no wheezes. Heart: RRR, No m/r/g Abdomen: obese, abdominal striae present, S/NT/ND, no masses or organomegaly, BS x 4 quadrants : Uncircumcised male, testicles descended bilaterally with varicoceles present bilaterally, erythematous rash in groin Skin/Nails: Nails with small hyperpigmented areas bilaterally. Extremites: No cyanosis or edema. 2+ pulses in all 4 extremities. ASSESSMENT/PLAN: 1. DM (diabetes mellitus) (250.00) Hemoglobin A1c, Microalbumin quantitative, random urine, Cortisol, Lipid Profile (Chol, Trig, HDL, LDL calc), metFORMIN (GLUCOPHAGE-XR) 500 MG 24 hr tablet 2. Hyperthyroidism (242.90) TSH, T4, free, T3 total, Thyroid stimulating immunoglobulin 3. Routine physical examination (V70.0) CBC with platelets differential, Comprehensive metabolic panel, Hepatitis C antibody, HIV 1 and 2 Antibody, Anti treponema EIA 4. Cellulitis and abscess (682.9) 5. Erectile dysfunction (607.84) 1. The patient has a history of diabetes. Hgb A1C is slightly out of range at 7.1 however unclear oncompliance with Metformin. Will have him start on Metformin XL formula at 1000 mg BID. Will discontinue insulin at this time as patient is unclear on use and not taking regularly and will consider adding back in the future. Will check baseline labs including lipid panel and urine microalbumin. Will follow-up in 1 month. 2. Patient has a reported history of hyperthyroidism. Will send TSH, free T4, total T3 as well as thyroid stimulating immunoglobulin. Kaiden has many symptoms that could all be explained by thyroid disease and will investigate this further as per above. 3. Will perform routine screening and given history of autoimmune disease as well as fatigue will check a CBC, CMP. 4. Cellulitis appears to be improved since last visit. Will continue to monitor. 5. Erectile dysfunction. Appears to have gradual onset. Will check routine labs first prior to trialof medications. Will consider checking a testosterone in the future. Plan discussed with Dr. Ayala. Given the patient's history significant history of autoimmune disease within his family as well as Follow up with Provider - 1 month reports that he has never smoked. He has never used smokeless tobacco. Estimated Body mass index is 37.10 kg/(m^2) as calculated from the following: Height as of 11/05/12: 5' 11(1.803 m). Weight as of this encounter: 266 lb(120.657 kg). Weight management plan: Established an exercise regimen with the patient. Activity goal: 30 minutes 5 days a week. New exercise routine: walking and yard work. Jensen Melendez MD Medicine-Pediatrics PGY-2 [phone] I discussed this case in depth with Dr. Melendez and agree with the kumar components of the history, assessment and plan. Complicated male with h/o poor follow-up, DM and hyperthyroidism that was never treated with a number of other symptoms that could all be related to the hyperthyroidism. Labs as ordered. Will return for fasting chol/am cortisol. Will f/u with Dr. Melendez in 1 month. Nadira Calabrese MD Internal Medicine/Pediatrics documented in this encounter Nursing Notes 11/07/2012 2:00 PM CDT >> ANNABELLE MANZANARES Wed Nov 07, 2012 2:16 PM Patient presents with: Diabetes - check on labs as well RECHECK - derm Initial BP 108/70 Pulse 77 Temp 97.8 ??F (36.6 ??C) (Tympanic) Wt 266 lb (120.657 kg) Estimated Body mass index is 37.10 kg/(m^2) as calculated from the following: Height as of 13: 5' 11(1.803 m). Weight as of this encounter: 266 lb(120.657 kg). BP completed using cuff size: large Annabelle Manzanares MA documented in this encounter Plan of Treatment Not on filedocumented as of this encounter Procedures Procedure Name Priority Date/Time Associated Diagnosis Comme nts ANTI TREPONEMA Routine 11/07/2012 3:18 Routine physical Result s for this PM CDT examination procedure are i n the results section. ALBUMIN RANDOM URINE Routine 11/07/2012 3:13 DM (diabetes christopher itus) Results for this QUANTITATIVE PM CDT (H) procedure are i n the results section. CBC WITH PLATELETS & Routine 11/07/2012 3:12 Routine physical Results for this DIFFERENTIAL PM CDT examination procedure are i n the results section. TSH Routine 11/07/2012 3:12 Hyperthyroidism Results f or this PM CDT procedure are i n the results section. THYROID STIMULATING Routine 11/07/2012 3:12 Hyperthyroidism Re sults for this IMMUNOGLOBULIN PM CDT procedure are in the results section. T4 FREE Routine 11/07/2012 3:12 Hyperthyroidism Results f or this PM CDT procedure are i n the results section. T3 TOTAL Routine 11/07/2012 3:12 Hyperthyroidism Results f or this PM CDT procedure are i n the results section. HIV 1 AND 2 ANTIBODY Routine 11/07/2012 3:12 Routine physical Results for this ([facility]) PM CDT examination procedure are i n the results section. HEPATITIS C ANTIBODY Routine 11/07/2012 3:12 Routine physical Results for this PM CDT examination procedure are i n the results section. HEMOGLOBIN A1C Routine 11/07/2012 3:12 DM (diabetes mellitus) Results for this PM CDT (H) procedure are i n the results section. COMPREHENSIVE Routine 11/07/2012 3:12 Routine physical Results for this METABOLIC PANEL PM CDT examination procedure ar e in the results section. documented in this encounter Results Anti treponema EIA (11/07/2012 3:18 PM CDT) [facility] Method Time Signature Treponema Negative NEG [facility] pallidum MICROBIOLOGY Antibody Specimen Anatomical Collection Method Collection Time Receive d Time (Source) Location / / Volume Laterality Blood specimen 11/07/2012 3:18 PM 013 3:21 (specimen) CDT PM CDT Jensen Melendez MD LAB - BLOOD ORDERABLES Performing Organization Address City/[facility]/ZIP Code Phon e Number [address] MICROBIOLOGY Microalbumin quantitative, random urine (11/07/2012 3:13 PM CDT) Component Value Ref Test Analysis Performed At [facility] Range Method Time Signature Creatinine 178 mg/dL [facility] Urine [facility] LABS Albumin Urine <5 mg/L [facility] mg/L Urine Microalbumin lowest re portable value has been changed from 2 mg/L to 5 [facility] mg/L due to a methodology change on August. CAMPUS LABS Albumin Urine Unable to 0 - 17 [facility] mg/g Cr calculate mg/g Cr [facility] LABS Specimen Anatomical Collection Method Collection Time Receive d Time (Source) Location / / Volume Laterality Urine specimen 11/07/2012 3:13 PM 013 3:16 (specimen) CDT PM CDT Jensen Melendez MD LAB - URINE ORDERABLES Performing Organization Address City/[facility]/ZIP [facility] Phon e Number [facility] [address] LABS Thyroid stimulating immunoglobulin (11/07/2012 3:12 PM CDT) [facility] Signature Thyroid Stim <1.0 [place] Immunog Reference range: <=1.3 [place] Unit: TSI index LAB (Note) Test Performed by: [facility] [address] [place] [address] Mainframe Programmer: Glen Hou III, M.D. Specimen Anatomical Collection Method Collection Time Receive d Time (Source) Location / / Volume Laterality Blood specimen 11/07/2012 3:12 PM 013 3:15 (specimen) CDT PM CDT Jensen Melendez MD LAB - BLOOD ORDERABLES Performing Organization Address City/[facility] Phon e Number [facility] [address] [place] [phone] [facility] LAB [address] [place] [phone] HIV 1 and 2 Antibody (11/07/2012 3:12 PM CDT) [facility] Signature HIV 1&2 Negative NEG [facility] Antibody MICROBIOLOGY Specimen Anatomical Collection Method Collection Time Receive d Time (Source) Location / / Volume Laterality Blood specimen 11/07/2012 3:12 PM 013 3:15 (specimen) CDT PM CDT Jensen Melendez MD LAB - BLOOD ORDERABLES Performing Organization Address City/[facility]/ZIP Code Phon e Number [facility] [address] [place] [address] [facility] MICROBIOLOGY T3 total (11/07/2012 3:12 PM CDT) [facility] Signature Triiodothyronine 118 60 - 181 [facility] (T3) ng/dL [facility] LABS Specimen Anatomical Collection Method Collection Time Receive d Time (Source) Location / / Volume Laterality Blood specimen 11/07/2012 3:12 PM 013 3:15 (specimen) CDT PM CDT Jensen Melendez MD LAB - BLOOD ORDERABLES Performing Organization Address City/[facility]/ZIP Code Phon e Number [facility] [address] [place] [address] [facility] LABS T4, free (11/07/2012 3:12 PM CDT) athologist Signature T4 Free 0.87 0.70 - 1.85 [facility] ng/dL CLINIC LAB Specimen Anatomical Collection Method Collection Time Receive d Time (Source) Location / / Volume Laterality Blood specimen 11/07/2012 3:12 PM 013 3:15 (specimen) CDT PM CDT Jensen Melendez MD LAB - BLOOD ORDERABLES Performing Organization Address City/[facility]/ZIP [facility] Phon e Number [facility] [address] [place] [phone] [facility] LAB [address] [place] [phone] Hepatitis C antibody (11/07/2012 3:12 PM CDT) [facility] gist Method Time Signature Hepatitis C Negative NEG [facility] Antibody MICROBIOLOGY Specimen Anatomical Collection Method Collection Time Receive d Time (Source) Location / / Volume Laterality Blood specimen 11/07/2012 3:12 PM 013 3:15 (specimen) CDT PM CDT Jensen Melendez MD LAB - BLOOD ORDERABLES Performing Organization Address City/State/ZIP Code Phon e Number [facility] [address] [place] [address] [facility] MICROBIOLOGY TSH (11/07/2012 3:12 PM CDT) athologist Signature TSH 2.26 0.4 - 5.0 [place] mU/L CLINIC LAB Specimen Anatomical Collection Method Collection Time Receive d Time (Source) Location / / Volume Laterality Blood specimen 11/07/2012 3:12 PM 013 3:15 (specimen) CDT PM CDT Jensen Melendez MD LAB - BLOOD ORDERABLES Performing Organization Address City/[facility]/ZIP Code Phon e Number [facility] [address], [place] [address] [facility] [address] [place] [phone] (ABNORMAL) Comprehensive metabolic panel (11/07/2012 3:12 PM CDT) P athologist Signature Sodium 142 133 - 144 [facility] mmol/L [facility] LAB Potassium 4.0 3.4 - 5.3 [facility] mmol/L [facility] LAB Chloride 106 94 - 109 [facility] mmol/L CLIN[facility] LAB Carbon Dioxide 23 20 - 32 [place] mmol/L CLINIC LAB Anion Gap 13 6 - 17 [place] mmol/L [facility]INIC LAB Glucose 131 (H) 60 - 99 [facility] mg/dL CLINIC LAB Comment: Non Fasting Urea Nitrogen 17 5 - 24 mg/dL [facility] LAB Creatinine 0.86 0.66 - 1.25 mg/dL [facility] LAB GFR Estimate >90 >60 mL/min/1.7m2 [facility] LAB GFR Estimate If Black >90 >60 mL/min/1.7m2 F [facility] LAB Calcium 9.2 8.5 - 10.4 mg/dL [facility] LAB Bilirubin Total 0.3 0.2 - 1.3 mg/dL [facility] LAB Albumin 3.8 (L) 3.9 - 5.1 g/dL [facility] LAB Comment: Reference range changed on 01/14. Protein Total 7.1 6.8 - 8.8 g/dL [facility] LAB Comment: As of 07, reference range reflects plasma specimen type. Alkaline Phosphatase 69 40 - 150 U/L [facility] CLINIC LAB ALT 55 0 - 70 U/L [facility] CLIN IC LAB AST 36 0 - 45 U/L [facility] CLIN IC LAB Specimen Anatomical Collection Method Collection Time Receive d Time (Source) Location / / Volume Laterality Blood specimen 11/07/2012 3:12 PM 013 3:15 (specimen) CDT PM CDT Jensen Melnedez MD LAB - BLOOD ORDERABLES Performing Organization Address City/State/ZIP Code Phon e Number [facility] [address] [place] [address] [facility] [address] [place] [address] CBC with platelets differential (11/07/2012 3:12 PM CDT) [facility] gist Method Time Signature WBC 7.4 4.0 [facility] 11.0 [facility] 10e9/L LAB RBC Count 4.86 4.4 - 5.9 [place] 10e12/L [facility] Hemoglobin 14.2 13.3 - [facility] 17.7 g/dL [facility] Hematocrit 41.3 40.0 - [place] 53.0 % [facility] MCV 85 78 - 100 [place] fl [facility] MCH 29.2 26.5 - [facility] 33.0 pg [facility] MCHC 34.4 31.5 - [place] 36.5 g/dL [facility] RDW 12.7 10.0 - [place] 15.0 % [facility] Platelet Count 178 150 - 450 [place] 10e9/L [facility] Diff Method Automated [place] Method [facility] % Neutrophils 70.5 % [facility] % Lymphocytes 18.5 % [facility] % Monocytes 9.2 % [facility] % Eosinophils 1.5 % [facility] % Basophils 0.3 % [facility] Absolute 5.2 1.6 - 8.3 [place] Neutrophil 10e9/L [facility] Absolute 1.4 0.8 - 5.3 [place] Lymphocytes 10e9/L [facility] Absolute 0.7 0.0 - 1.3 [place] Monocytes 10e9/L [facility] Absolute 0.1 0.0 - 0.7 [place] Eosinophils 10e9/L [facility] Absolute 0.0 0.0 - 0.2 [place] Basophils 10e9/L [facility] Specimen Anatomical Collection Method Collection Time Receive d Time (Source) Location / / Volume Laterality Blood specimen 11/07/2012 3:12 PM 013 3:15 (specimen) CDT PM CDT Jensen Melendez MD LAB - BLOOD ORDERABLES Performing Organization Address City/State/ZIP Code Phon e Number [facility] [address] [place] [address] [facility] [address] [place] [address] [phone] (ABNORMAL) Hemoglobin A1c (11/07/2012 3:12 PM CDT) P athologist Signature Hemoglobin A1C 7.1 (H) 4.3 - 6.0 [place] % [facility] Specimen Anatomical Collection Method Collection Time Receive d Time (Source) Location / / Volume Laterality Blood specimen 11/07/2012 3:12 PM 013 3:15 (specimen) CDT PM CDT Jensen Melendez MD LAB - BLOOD ORDERABLES Performing Organization Address City/State/ZIP Code Phon e Number [facility] [address] [place] [phone] [facility] [address] [place] [address] [phone] documented in this encounter Visit Diagnoses Diagnosis Routine physical examination - Primary Routine general medical examination at a health care facility DM (diabetes mellitus) (H) Type II or unspecified type diabetes samuel litus without mention of complication, not stated as uncontrolled Hyperthyroidism Thyrotoxicosis without mention of goiter or other cause, without mention of thyrotoxic crisis or storm Cellulitis and abscess Cellulitis and abscess of unspecified si te Erectile dysfunction Impotence of organic origin documented in this encounter Care Teams 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
--- OUTSIDE RECORDS SUMMARY | 2022-04-14 09:14 | XMS_ITS | Encounter Summary ---
:1975 Author Organization [facility] Address [address] [place] [address]. [place] [address] Care Team Providers Name Role Phone Jensen Melendez MD Primary Care Provider [phone] Reason for Visit Reason Comments Other Encounter Details Date Type Department Care Team Description 05/30/2013 Emergency [facility] Anthony Galvan MD Vomiting and diarrhea (Primary Dx); [facility] Emergency Dep t EMERGENCY PHYSICIANS Dehydration [address] [place], [place] [address] [place] [address] [place] [address] [phone] (Wo rk) Social History Tobacco Use Types Packs/Day Years Used Date Smoking Tobacco: Never Smokeless Tobacco: Never Alcohol Use Standard Drinks/Week Comments No 0 (1 standard drink = 0.6 oz pure alcoho l) Sex Assigned at Date Recorded Not on file documented as of this encounter Last Filed Vital Signs Vital Sign Reading Time Taken Comments Blood Pressure 122/76 05/30/2013 2:05 PM SIXTH GRADE TEACHER Pulse - - Temperature 37.3 ??C (99.1 ??F) 05/30/2013 11:55 AM SIXTH GRADE TEACHER Respiratory Rate 18 05/30/2013 2:05 PM SIXTH GRADE TEACHER Oxygen Saturation 98% 05/30/2013 2:05 PM SIXTH GRADE TEACHER Inhaled Oxygen Concentration - - Weight - - Height - - Body Mass Index - - documented in this encounter Discharge Instructions AttachmentsThe following attachments cannot be sent through Care Everywhere. VOMITING AND DIARRHEA, NONSPECIFIC (ADULT) (CYMRAES)documented in this encounter Medications at Time of Discharge Medication Sig Dispensed Refills Start Date End Date ondansetron (ZOFRAN ODT) 4 Take 1 tablet (4 12 tablet 0 06/02/2013 MG disintegrating tablet mg) by mouth every 6 hours as needed for nausea metFORMIN (GLUCOPHAGE-XR) Take 2 tablets by 180 tablet 1 09/10/2013 500 MG 24 hr mouth 2 times tabletIndications: DM daily (with (diabetes mellitus) (H) meals). documented as of this encounter ED Notes Anthony Galvan MD - 05/30/2013 12:18 PM CST History Chief Complaint: Nausea, vomiting and diarrhea HPI Kaiden Reyna is a 38 year old male who presents with nausea, vomiting and diarrhea. The patient states he has been experiencing nausea, vomiting and diarrhea for the past week as well as URI symptoms. He explains the symptoms have been persistent and he indicates he is now unable to eat anything ruben just throws it back up. He indicates he is also experiencing some rhinorrhea, nasal congestion, headache, sinus pressure and cough. He notes he has been off hs diabetic medications for the past month due to an insurance issue. The patient has no other concerns at this time. Allergies: Penicillins Vancomycin Medications: Metformin (not taking x 1 month) Past Medical History: DM H/o Thyroiditis Ulcer H/o Cellulitis Past Surgical History: The patient does not have any pertinent past surgical history. Family History: History of LUPUS, diabetes and CAD. Marital Status: Social History: The patient has never been a smoker. The patient is negative alcohol use. Review of Systems Constitutional: Negative for fever and chills. HENT: Positive for congestion, sore throat, rhinorrhea and sinus pressure. Respiratory: Positive for cough. Gastrointestinal: Positive for nausea, vomiting and diarrhea. Negative for abdominal pain and blood in stool. All other systems reviewed and are negative. Physical Exam First Vitals: BP: 129/88 mmHg Heart Rate: 87 Temp: 99.1 ??F (37.3 ??C) Resp: 20 SpO2: 99 % Physical Exam Nursing note and vitals reviewed. Constitutional: Cooperative. HENT: Mouth/Throat: Mucous membranes are dry. Eyes: No icterus. Cardiovascular: Normal rate, regular rhythm and normal heart sounds. No murmur. Pulmonary/Chest: Effort normal and breath sounds normal. No respiratory distress. No wheezes. No rales. Abdominal: Soft. Normal appearance and bowel sounds are normal. No distension. There is no tenderness. There is no rigidity and no guarding. Neurological: Alert. Normal strength Skin: Skin is warm and dry. No rash noted. Psychiatric: Normal mood and affect. Emergency Department Course Laboratory: Glucose by meter: 152 high Lactic acid: 1.0 CBC: WNL (WBC 7.1, HGB 14.3, PLT 183) CMP: Glucose 152 high, ALT 71 high o/w WNL (Creatiine 0.93) UA: Negative Lipase: 78 Patient was unable to provide a stool sample. Interventions: NS 2 L IV Ondansetron 8 mg IV Emergency Department Course: 1230 The patient was examined here in the Emergency Department by myself, findings above. Blood was drawn from the patient. This was sent for laboratory testing, findings above. 1415 I discussed the plan of treatment with the patient and he is agreeable to this. I answered all questions. Patient discharged home, status improved, with instructions regarding supportive care, medications, and reasons to return as well as the importance of close follow-up was reviewed. Impression & Plan Medical Decision Making: This is a 38 year old gentleman with a history of type II diabetes who has been off his meds for about a month due to insurance reasons who presents with vomiting and a diarrheal illness. His abdominalexam is reassuring with no evidence of an acute surgical process. He has had no blood in his stool or recent antibiotic use to be concerned for an invasive bacterial infectious diarrhea or C diff. I see no indication for imaging. His labs are reassuring as are his vital signs. He says he feels better after two liters of fluids and Zofran and he will be discharged home with symptomatic care at this time. He is not in any Metabolic crisis and will continue to work on getting back on his metformin to control his blood sugars which are reasonable managed at this time. Diagnosis: 1. Vomiting and diarrheal illness. 2. Dehydration secondary to #1. Plan: Discharge home with PMD follow up. I, Dylan Carter, am serving as a scribe on 05/30/2013 at 12:30 PM to personally document services performed by Dr. Galvan based on my observations and the provider's statements to me. Dylan Carter 05/30/2013 [facility] Anthony Galvan MD 05/30/13 1436 H GRADE TEACHER Leonor Dumas, RN - 05/30/2013 11:58 AM CST Pt has been off diabetes medicines for many months due to no insurance. H GRADE TEACHER Leonor Dumas, CASA - 05/30/2013 11:54 AM CST Nausea, vomiting, diarrhea and weakness for past 1 week. No blood noted. reports he's out of it and unable to take his diabetes medicine. H GRADE TEACHER documented in this encounter Plan of Treatment Not on filedocumented as of this encounter Procedures Procedure Name Priority Date/Time Associated Comments Diagnosis ROUTINE UA WITH STAT 05/30/2013 1:54 PM Result s for this MICROSCOPIC SIXTH GRADE TEACHER procedure are i n the results section. CBC WITH PLATELETS & STAT 05/30/2013 1:00 PM R esults for this DIFFERENTIAL S[employer] GRADE TEACHER procedure are i n the results section. LIPASE STAT 05/30/2013 1:00 PM Results f or this SIXTH GRADE TEACHER procedure are i n the results section. LACTIC ACID STAT 05/30/2013 1:00 PM Results f or this SIXTH GRADE TEACHER procedure are i n the results section. COMPREHENSIVE STAT 05/30/2013 1:00 PM Results for this METABOLIC PANEL S[employer]TH GRADE TEACHER procedure ar e in the results section. GLUCOSE BY METER Routine 05/30/2013 11:58 Results for this AM SIXTH GRADE TEACHER procedure are i n the results section. documented in this encounter Results (ABNORMAL) UA with Microscopic (05/30/2013 1:54 PM SIXTH GRADE TEACHER) [facility] Method Time Signature Color Urine Yellow [facility] Appearance Urine Clear [facility] Glucose Urine Negative NEG mg/dL [facility] Bilirubin Urine Negative NEG [facility] Ketones Urine Negative NEG mg/dL [facility] Specific [place] 1.024 1.003 - [place] Urine 1.035 [facility] Blood Urine Negative NEG [facility] pH Urine 5.5 5.0 - 7.0 [place] pH [facility] Protein Albumin Negative NEG mg/dL [place] Urine [facility] Urobilinogen Normal 0.0 - 2.0 [place] mg/dL mg/dL [facility] Nitrite Urine Negative NEG [facility] Leukocyte Negative NEG [place] Esterase Urine [facility] Source Midstream [place] Urine [facility] WBC Urine <1 0 - 2 [facility] RBC Urine 1 0 - 2 [facility] Mucous Urine Present (A) NEG /LPF [facility] Specimen Anatomical Collection Method Collection Time Receive d Time (Source) Location / / Volume Laterality Urine specimen MID-STREAM URINE 05/30/2013 1:54 PM 1:59 (specimen) SPECIMEN / Unknown S[employer] TEACHER PM S[employer] TEACHER Anthony Galvan MD LAB - URINE ORDERABLES Performing Organization Address City/[facility]/ZIP [facility] Phon e Number [facility] [address], [place] [address] [phone] [place] [address] LAB Lipase (05/30/2013 1:00 PM SIXTH GRADE TEACHER) athologist Signature Lipase 78 20 - 250 [facility] Specimen Anatomical Collection Method Collection Time Receive d Time (Source) Location / / Volume Laterality Blood specimen 05/30/2013 1:00 PM 014 1:17 (specimen) SIXTH GRADE TEACHER PM [employer] TEACHER Anthony Galvan MD LAB - BLOOD ORDERABLES Performing Organization Address City/[facility]/ZIP [facility] Phon e Number [facility] [address], [place] [address] [address] [phone] [place] [address] LAB Lactic acid (05/30/2013 1:00 PM SIXTH GRADE TEACHER) P athologist Signature Lactic Acid 1.0 0.7 - 2.1 [place] mmol/L [facility] Specimen Anatomical Collection Method Collection Time Receive d Time (Source) Location / / Volume Laterality Blood specimen 05/30/2013 1:00 PM 014 1:17 (specimen) SIXTH GRADE TEACHER PM S[employer] GRADE TEACHER Anthony Galvan MD LAB - BLOOD ORDERABLES Performing Organization Address City/State/ZIP Code Phon e Carlos Palmer [facility] [address] [place], [place] [address] [facility] (ABNORMAL) Comprehensive metabolic panel (05/30/2013 1:00 PM SIXTH GRADE TEACHER) Analysis Performed At Patho logist Time Signature Sodium 140 133 - 144 [place] mmol/L [facility] Potassium 4.2 3.4 - 5.3 [place] mmol/L [facility] Chloride 104 94 - 109 [place] mmol/L [facility] Carbon Dioxide 27 20 - 32 [place] mmol/L [facility] Anion Gap 9 6 - 17 [place] mmol/L [facility] Glucose 152 (H) 60 - 99 [place] mg/dL [facility] Urea Nitrogen 17 5 - 24 [place] mg/dL [facility] Creatinine 0.93 0.66 - [facility] 1.25 mg/dL [facility] GFR Estimate >90 >60 [place] mL/min/[address] [place] [address] LAB GFR Estimate If >90 >60 [facility] Black mL/min/1.[address] [place] [address] LAB Calcium 9.2 8.5 - 10.4 [place] mg/dL [facility] Bilirubin Total 0.8 0.2 - 1.3 [place] mg/dL [facility] Albumin 3.9 3.9 - 5.1 [place] g/dL [facility] Protein Total 7.0 6.8 - 8.8 [place] g/dL [facility] Alkaline 59 40 - 150 [place] Phosphatase U/L [facility] ALT 71 (H) 0 - 70 U/L [facility] AST 39 0 - 45 U/L [facility] Specimen Anatomical Collection Method Collection Time Receive d Time (Source) Location / / Volume Laterality Blood specimen 05/30/2013 1:00 PM 014 1:17 (specimen) SIXTH GRADE TEACHER PM S[employer] GRADE TEACHER Anthony Galvan MD LAB - BLOOD ORDERABLES Performing Organization Address City/[facility]/ZIP Code Phon e Carlos Palmer [facility] [address] [place], [place] [address] [facility] CBC with platelets differential (05/30/2013 1:00 PM SIXTH GRADE TEACHER) [facility] gist Method Time Signature WBC 7.1 4.0 - [place] 11.[address] LAB RBC Count 4.83 4.4 - 5.9 [place] 10e12/L [facility] Hemoglobin 14.3 13.3 - [place] 17.7 g/dL [facility] Hematocrit 41.1 40.0 - [place] 53.0 % [facility] MCV 85 78 - 100 [place] fl [facility] MCH 29.6 26.5 - [facility] 33.0 pg [facility] MCHC 34.8 31.5 - [place] 36.5 g/dL [facility] RDW 13.1 10.0 - [place] 15.0 % [facility] Platelet Count 183 150 - [address] LAB Diff Method Automated [facility] LAB % Neutrophils 68.1 % [facility] % Lymphocytes 25.5 % [facility] % Monocytes 5.4 % [facility] % Eosinophils 0.9 % [facility] % Basophils 0.1 % [facility] % Immature 0.0 % [facility] Granulocytes [facility] Absolute 4.8 1.6 - 8.3 [place] Neutrophil [address] LAB Absolute 1.8 0.8 - 5.3 [place] Lymphocytes [address] [place] [address] LAB Absolute 0.4 0.0 - 1.3 [place] Monocytes [address] [place] [address] LAB Absolute 0.1 0.0 - 0.7 [place] Eosinophils [address] [place] [address] LAB Absolute 0.0 0.0 - 0.2 [place] Basophils [address] [place] [address] LAB Abs Immature 0.0 0 - 0.4 [place] Granulocytes [address] [place] [address] LAB Specimen Anatomical Collection Method Collection Time Receive d Time (Source) Location / / Volume Laterality Blood specimen 05/30/2013 1:00 PM 014 1:17 (specimen) SIXTH GRADE TEACHER PM SIXTH GRADE TEACHER Anthony Galvan MD LAB - BLOOD ORDERABLES Performing Organization Address City/State/ZIP Code Phon e Number M [facility] [address], [place] [address] [facility] (ABNORMAL) Glucose by meter (05/30/2013 11:58 AM SIXTH GRADE TEACHER) P athologist Signature Glucose 152 (H) 60 - 99 POINT OF CARE mg/dL TEST, GLUCOSE Specimen Anatomical Collection Method Collection Time Receive d Time (Source) Location / / Volume Laterality 05/30/2013 11:58 05/30/2013 AM SIXTH GRADE TEACHER 12:01 PM SIXTH GRADE TEACHER Provider Unknown LAB - ANSLEYAKER POCT Performing Organization Address City/State/ZIP Code Phon e Number [facility] POINT OF CARE TEST, GLUCOSE POINT OF CARE TEST, GLUCOSE documented in this encounter Visit Diagnoses Diagnosis Vomiting and diarrhea - Primary Vomiting alone Dehydration documented in this encounter Administered Medications Inactive Administered Medications - up to 3 most recent administrations Medication Order MAR Action Action Date Dose Rate Site ondansetron (ZOFRAN) injection 8 mg Given 05/30/2013 1:30 PM SIXTH GRADE TEACHER 8 mg 8 mg, Intravenous, ONCE PRN, nausea, vomiting, Administer over 2-5 Minutes, Starting on Sheba 05/30/13 at 1237, For 1 dose sodium chloride 0.9 % BOLUS New Bag 05/30/2013 1:08 PM SIXTH GRADE TEACHER 2,000 m Ls 2000 mL/hr 2,000 mL Intravenous, 2,000 mL, ONCE, at 2,000 mL/hr, Administer over 1 Hours, On Sheba 05/30/13 at 1245, For 1 dose documented in this encounter Active and Recently Administered Medications Times are shown in SIXTH GRADE TEACHER. Scheduled Medication Order 05/28/2013 05/29/2013 05/30/2013 sodium chloride 0.9 % BOLUS 2,000 mL (COMPLETED) 1308 (New Bag - Provider: Josee Dey, CASA)1432 (Stopped - Provider: Josee Dey, RN) Intravenous, 2,000 mL, ONCE, at 2,000 mL /hr, Administer over 1 Hours, On Sheba 05/30/13 at 1245, For 1 dose PRN Medication Order 05/28/2013 05/29/2013 05/30/2013 ondansetron (ZOFRAN) injection 8 mg (COMPLETED) 1330 (Given - Provider: Josee Dey, RN) 8 mg, Intravenous, ONCE PRN, nausea, vom iting, for 2 Minutes, Starting Sheba 05/30/13 at 1237, For 1 dose documented in this encounter Additional Health Concerns Infection Onset Date Last Indicated Resolved Time MRSA-Contact IsolationComment: Skin 12-25-2012 01/02/2013 documented as of this encounter Care Teams Office Technician Relationship Specialty Start Date End Date Jensen Melendez PCP - General Student in organized 10/31/12 01/13/14 [address] [address] education/training program [place], [place] [id number] documented as of this encounter
--- OUTSIDE RECORDS SUMMARY | 2022-04-14 09:14 | XMS_ITS | Encounter Summary ---
:1975 Author Organization [facility] Address [address] [place] [address]. [place] [address] Care Team Providers Name Role Phone Jensen Melendez MD Primary Care Provider Reason for Visit Reason Onset Date Comments Cellulitis 12/27/2012 L thigh Encounter Details Date Type Department Care Team Description 12/27/2012 Telephone [facility] Eag Jensen Gonzalez Cellulitis (L thigh) [address] [facility] [place] [address] [address] [facility] [phone] [address] [place] [address] (Wo rk) Social History Tobacco Use Types Packs/Day Years Used Date Smoking Tobacco: Never Smokeless Tobacco: Never Alcohol Use Standard Drinks/Week Comments No 0 (1 standard drink = 0.6 oz pure alcoho l) Sex Assigned at Date Recorded Not on file documented as of this encounter Miscellaneous Notes Telephone Encounter - Sarah Ko - 12/27/2012 2:05 PM CDT Pt has cellulitis of his leg. Got IV antibiotic in ER yesterday. Wound was packed and this dsg fell out. Pt missed appointment this AM as he overslept because he works nights. He will use walk in clinic today. ER note 12-26-12: Medical Decision Makin37 year old male that [...] expanding erythema, fever, any symptoms, or concern. Sarah Ko RN documented in this encounter Plan of Treatment Not on filedocumented as of this encounter Visit Diagnoses Not on filedocumented in this encounter Care Teams Enrolled Nurse Relationship Specialty Start Date End Date Jensen Melendez, PCP - General Student in [employer] 10/31/12 01/13/14 [place] [address] education/[place] [address] documented as of this encounter
--- OUTSIDE RECORDS SUMMARY | 2022-04-14 09:14 | XMS_ITS | Encounter Summary ---
:1975 Author Organization [facility] Address [address] [place] [address]. [place] [address] Care Team Providers Name Role Phone Jensen Melendez MD Primary Care Provider [phone] Reason for Visit Reason Onset Date Comments Erroneous encounter-disregard 12/27/2012 Encounter Details Date Type Department Care Team Description 12/27/2012 Office Visit [facility] Zelalem Biswas ERRON EOUS Eagan MD ENCOUNTER--DISREGARD [address] [employer] [address] [place] [address] (Primary Dx) [place] [phone] [place] [address] (Wo rk) Social History Tobacco Use Types Packs/Day Years Used Date Smoking Tobacco: Never Smokeless Tobacco: Never Alcohol Use Standard Drinks/Week Comments No 0 (1 standard drink = 0.6 oz pure alcoho l) Sex Assigned at Date Recorded Not on file documented as of this encounter Progress Notes Zelalem Biswas MD - 12/27/2012 5:28 PM CDT This encounter was opened in error. Please disregard. documented in this encounter Plan of Treatment Not on filedocumented as of this encounter Visit Diagnoses Diagnosis ERRONEOUS ENCOUNTER--DISREGARD - Primary documented in this encounter Care Teams Materials Scientist Relationship Specialty Start Date End Date Jensen Melendez PCP - General Student in organized 10/31/12 01/13/[address] education/[place] [address] documented as of this encounter
--- OUTSIDE RECORDS SUMMARY | 2022-04-14 09:14 | XMS_ITS | Encounter Summary ---
:1975 Author Organization [facility] Address [address] [place] [address]. [place] [address] Care Team Providers Name Role Phone Jensen Melendez MD Primary Care Provider [phone] Reason for Visit Reason Onset Date Comments ER F/U 05/30/2013 Vomiting And Diarrhe a, Dehydration, 3 Encounter Details Date Type Department Care Team Description 06/03/2013 Telephone [facility] Eag an Jensen Melendez ER F/U (Vomiting And [address] MD [place] Diarrhea, Dehydration, [place] [address] [address] [facility] 3) [phone] [address] [place] [address] (Wo rk) Social History Tobacco Use Types Packs/Day Years Used Date Smoking Tobacco: Never Smokeless Tobacco: Never Alcohol Use Standard Drinks/Week Comments No 0 (1 standard drink = 0.6 oz pure alcoho l) Sex Assigned at Date Recorded Not on file documented as of this encounter Miscellaneous Notes Telephone Encounter - Alisa Corral - 06/06/2013 9:56 AM CST ED / Discharge Outreach Protocol Patient Contact Attempt # 1 Was call answered? No. Left message on voicemail with information to call me back. LINE YARDER Telephone Encounter - Rosita Patrick - 06/03/2013 5:31 PM CST Please contact patient for Emergency Department follow up. [phone] (home) [phone] (work) Visit date: 05/30/13 Diagnosis listed:Vomiting And Diarrhea, Dehydration Number of visits in past 12 months:3 LINE YARDER documented in this encounter Plan of Treatment Not on filedocumented as of this encounter Visit Diagnoses Not on filedocumented in this encounter Additional Health Concerns Infection Onset Date Last Indicated Resolved Time MRSA-Contact IsolationComment: Skin 12-25-2012 01/02/2013 documented as of this encounter Care Teams Piggyback Clerk Relationship Specialty Start Date End Date Jensen Melendez, PCP - General Student in organized 10/31/12 01/13/14 [place] [address] [address] education/[place] [address] documented as of this encounter
--- OUTSIDE RECORDS SUMMARY | 2022-04-14 09:14 | XMS_ITS | Encounter Summary ---
:1975 Author Organization [facility] Address [address] [place] [address]. [place] [address] Care Team Providers Name Role Phone Jensen Melendez MD Primary Care Provider [phone] Reason for Visit Reason Comments Mass Encounter Details Date Type Department Care Team Description 12/25/2012 Office Visit [facility] Jaylyn Jones ss and cellulitis Clifton Chavez PA-C (Primary Dx) [address] [place] [address] [place] [id number] [facility] [phone] [place] [id number] Social History Tobacco Use Types Packs/Day Years Used Date Smoking Tobacco: Never Smokeless Tobacco: Never Alcohol Use Standard Drinks/Week Comments No 0 (1 standard drink = 0.6 oz pure alcoho l) Sex Assigned at Date Recorded Not on file documented as of this encounter Last Filed Vital Signs Vital Sign Reading Time Taken Comments Blood Pressure 118/84 12/25/2012 4:18 PM CDT Pulse 80 12/25/2012 4:18 PM CDT Temperature 36.7 ??C (98.1 ??F) 12/25/2012 4:18 PM CDT Respiratory Rate - - Oxygen Saturation - - Inhaled Oxygen Concentration - - Weight 120.1 kg (264 lb 11.2 oz) 12/25/2012 4:18 PM CDT Height 174.6 cm (5' 8.75) 12/25/2012 4:18 PM CDT Body Mass Index 39.37 12/25/2012 4:18 PM CDT documented in this encounter Patient Instructions Patient InstructionsJaylyn Jones PA-C - 12/25/2012 5:17 PM CDT Follow up in two days. Continue to monitor symptoms and if worsens, present to ED documented in this encounter Progress Notes Jaylyn Jones PA-C - 12/25/2012 4:20 PM CDT SUBJECTIVE: Kaiden Reyna is a 37 year old male who presents to clinic today for the following health issues: Concern - boil in groin area ?? Onset: 3 days ?? Description: Worried about infection Patient has history of abscess and cellulitis--MRSA; hospitalized. ?? Intensity: moderate ?? Progression of Symptoms: worse ?? Accompanying Signs & Symptoms: No fevers, chills, fatigue No discharge Pain , swelling at site streaking ?? Previous history of similar problem: yes ?? Precipitating factors: Worsened by: patient is a diabetic ?? Alleviating factors: Improved by: nothing ?? Therapies Tried and outcome: currently on bactrim for sinus infection Problem list, Medication list, Allergies, and Medical/Social/Surgical histories [facility] in [facility] andupdated as appropriate. ROS: C: NEGATIVE for fever, chills E/M: NEGATIVE for ear, mouth and throat problems R: NEGATIVE for significant cough or SOB CV: NEGATIVE for chest pain, palpitations or peripheral edema GI: NEGATIVE for nausea, abdominal pain, heartburn, or change in bowel habits : negative for dysuria, hematuria, decreased urinary stream MUSCULOSKELETAL: NEGATIVE for significant arthralgias or myalgia OBJECTIVE: BP 118/84 Pulse 80 Temp 98.1 ??F (36.7 ??C) (Oral) Ht 5' 8.75 (1.746 m) Wt 264 lb 11.2 oz (120.067 kg) BMI 39.37 kg/m2 Body mass index is 39.37 kg/(m^2). GENERAL: healthy, alert, no distress HENT: ear canals- normal; TMs- normal; Nose- normal; Mouth- no ulcers, no lesions NECK: no tenderness, no adenopathy RESP: lungs clear to auscultation - no rales, no rhonchi, no wheezes CV: regular rates and rhythm, normal S1 S2, no S3 or S4 and no murmur, no click or rub - SKIN: inspection of the left mid proximal thigh reveals a 2 cm abscess with punctate center. There is 5-6 cm surrounding erythema--redness outlined. Tender to palpation. Procedure Note: Site swabbed with iodine x 3. 2 cc of lidocaine was injected at the site. Patient tolerated the anesthesia well. #11 blade used to make a 1 cm diagnoal incision. Thick, yellow purulent discharge expressed and bacterial culture obtained. Site was cleaned and redressed with gauze. Patient is alert, oriented and tolerated the entire procedure well. Diagnostic test results: Wound culture pending ASSESSMENT/PLAN: 682.9 Abscess and cellulitis (primary encounter diagnosis) Comment: Discontinue bactrim. Begin clindamycin. Keep site clean and dry. Follow up in two days. If symptoms worsen, proceed to ED. Plan: clindamycin (CLEOCIN) 300 MG capsule, Wound culture, DRAIN SKIN ABSCESS SIMPLE/SINGLE See Patient Instructions Jaylyn Jones PA-C [facility] documented in this encounter Nursing Notes 12/25/2012 4:45 PM CDT >> KAVEH Tom Dec 25, 2012 4:24 PM Patient presents with: Mass Initial BP 118/84 Pulse 80 Temp 98.1 ??F (36.7 ??C) (Oral) Ht 5' 8.75 (1.746 m) Wt 264 lb 11.2 oz (120.067 kg) BMI 39.37 kg/m2 Estimated Body mass index is 39.37 kg/(m^2) as calculated from the following: Height as of this encounter: 5' 8.75(1.746 m). Weight as of this encounter: 264 lb 11.2 oz(120.067 kg). BP completed using cuff size: large documented in this encounter Plan of Treatment Not on filedocumented as of this encounter Procedures Procedure Name Priority Date/Time Associated Diagnosis Comme nts WOUND CULTURE Routine 12/25/2012 5:59 PM Abscess and Results for this AEROBIC BACTERIAL CDT cellulitis procedure are in the results section. HC DRAIN SKIN Routine 12/25/2012 5:17 PM Abscess and ABSCESS CDT cellulitis SIMPLE/SINGLE documented in this encounter Results Wound culture (12/25/2012 5:59 PM CDT) Component Value Ref Test Analysis Performed At [facility] gist Range Method Time Signature Specimen Left groin [facility] Culture Micro Heavy growth Methicillin res istant Staphylococcus aureus (MRSA) This isolate DOES [facility] NOT demonstrate inducible clindamycin resistance in vitro. MICROBIOLOGY Micro Report FINAL 12/28/2012 [facility] Status MICROBIOLOGY Specimen Anatomical Collection Method Collection Time Receive d Time (Source) Location / / Volume Laterality Specimen from 12/25/2012 5:59 PM 12/26/19 13 6:04 wound (specimen) CDT PM CDT Organism Antibiotic Method Susceptibility Heavy growth methicillin Ciprofloxacin <=0.5 S usceptible ug/mL resistant staphylococcus aureus (mrsa) this isolate does not demonstrate inducible clindamycin resistance in vitro. (jennifer) Heavy growth methicillin Clindamycin <=0.25 Susceptible ug/mL resistant staphylococcus aureus (mrsa) this isolate does not demonstrate inducible clindamycin resistance in vitro. (jennifer) Heavy growth methicillin Erythromycin >=8 Res istant ug/mL resistant staphylococcus aureus (mrsa) this isolate does not demonstrate inducible clindamycin resistance in vitro. (jennifer) Heavy growth methicillin Gentamicin <=0.5 S usceptible ug/mL resistant staphylococcus aureus (mrsa) this isolate does not demonstrate inducible clindamycin resistance in vitro. (jennifer) Heavy growth methicillin Levofloxacin 0.25 [place] sceptible ug/mL resistant staphylococcus aureus (mrsa) this isolate does not demonstrate inducible clindamycin resistance in vitro. (jennifer) Heavy growth methicillin Oxacillin >=4 Res istant ug/mL resistant staphylococcus aureus (mrsa) this isolate does not demonstrate inducible clindamycin resistance in vitro. (jennifer) Heavy growth methicillin Penicillin >=0.5 R esistant ug/mL resistant staphylococcus aureus (mrsa) this isolate does not demonstrate inducible clindamycin resistance in vitro. (jennifer) Heavy growth methicillin Tetracycline <=1 [place] ceptible ug/mL resistant staphylococcus aureus (mrsa) this isolate does not demonstrate inducible clindamycin resistance in vitro. (jennifer) Heavy growth methicillin Trimethoprim/Sulfamethoxa <=.5/9.5 Susceptible ug/mL resistant staphylococcus zole aureus (mrsa) this isolate does not demonstrate inducible clindamycin resistance in vitro. (jennifer) Heavy growth methicillin Vancomycin 1 Susce ptible ug/mL resistant staphylococcus aureus (mrsa) this isolate does not demonstrate inducible clindamycin resistance in vitro. (jennifer) Heavy growth methicillin Linezolid 2 Susce ptible ug/mL resistant staphylococcus aureus (mrsa) this isolate does not demonstrate inducible clindamycin resistance in vitro. (jennifer) Jaylyn Jones PA-C LAB - MICRO GENERAL ORD ERABLES Performing Organization Address City/State/ZIP Code Phon e Number [address] [address] [facility] [address] [place] [address] [facility] MICROBIOLOGY documented in this encounter Visit Diagnoses Diagnosis Abscess and cellulitis - Primary Cellulitis and abscess of unspecified si te documented in this encounter Additional Health Concerns Infection Onset Date Last Indicated Resolved Time MRSA-Contact IsolationComment: Skin 12-25-2012 01/02/2013 documented as of this encounter Care Teams Kitchen Utility Associate Relationship Specialty Start Date End Date Jensen Melendez PCP - General Student in [facility] [facility] 10/31/12 01/13/14 [place] [address] education/[place] [address] documented as of this encounter
--- OUTSIDE RECORDS SUMMARY | 2022-04-14 09:14 | XMS_ITS | Encounter Summary ---
:1975 Author Organization [facility] Address [address] [place] [address]. [place] [address] Care Team Providers Name Role Phone Jensen Melendez MD Primary Care Provider [phone] Reason for Visit Reason Onset Date Comments Letter for School/Work 12/25/2012 Medication Request 12/25/2012 pain meds Encounter Details Date Type Department Care Team Description 12/25/2012 Telephone [facility] Eag an Jensen Melendez Letter for [facility] MD Stan School/Work; [place] [phone] [place] [address] Medication Request [phone] (pain meds) [place] [address] (Wo rk) Social History Tobacco Use Types Packs/Day Years Used Date Smoking Tobacco: Never Smokeless Tobacco: Never Alcohol Use Standard Drinks/Week Comments No 0 (1 standard drink = 0.6 oz pure alcoho l) Sex Assigned at Date Recorded Not on file documented as of this encounter Miscellaneous Notes Telephone Encounter - Hilda Rose - 12/25/2012 6:19 PM CDT Phone call to patient and informed of Tylenol # 3 faxed and 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 He verbalized understanding. Bonnie Rose RN Telephone Encounter - Jaylyn Jones PA-C - 12/25/2012 6:17 PM CDT T#3 faxed to Britt. Work letter completed. Jaylyn Jones PA-C Telephone Encounter - Hilda Rose - 12/25/2012 5:55 PM CDT Patient calls stating he had an area incised and drained this pm with Michelle Jones. Area was packed. Now is having more pain and can barely walk. Is scheduled to go to work tonight and would like an excuse for tonight. Would also like something for pain. Gets itchy from vicodin and states he has received oxycodone in the past. Routing to Michelle. Bonnie Rose RN documented in this encounter Plan of Treatment Not on filedocumented as of this encounter Visit Diagnoses Diagnosis Abscess and cellulitis - Primary Cellulitis and abscess of unspecified si te documented in this encounter Care Teams Instructional Technology Specialist Relationship Specialty Start Date End Date Jensen Melendez, NATALY - General Student in [employer] [facility] 10/31/12 01/13/14 [place] [address] education/[place] [address] documented as of this encounter
--- NOTE | 2022-04-14 09:15 | CRLHL7_ITS ---
For Patients: As a result of the Century Cures Act, medical imaging exams and procedure reports are released immediately into your electronic medical record. You may view this report before your referring provider. If you have questions, please contact your health care provider. HISTORY: 46-year-old male. Nausea and vomiting. Type 2 diabetes. Evaluate gastric emptying. TECHNIQUE: 1.05 millicuries of [id number] colloid was administered orally in a meal of 4 ounces of egg beaters with 1/2 slice of bread with jam and 4 ounces of water. Images of the stomach and abdomen were obtained in the anterior and posterior projections for 4 hours. FINDINGS: Time: 0 minutes: Activity Remainin.0 percent. Time: 60 minutes: Activity Remainin.0 percent. Time: 90 minutes: Activity Remainin.7 percent. Time: 120 minutes: Activity Remainin.7 percent. Time: 240 minutes: Activity Remainin.0 percent. IMPRESSION: The half-time of gastric emptying is between 60-90 minutes. This is within normal limits. Dictated by Zeke Urias MD @ 04/14/2022 3:16:11 PM (Electronically Signed)
--- OUTSIDE RECORDS SUMMARY | 2022-04-14 09:15 | XMS_ITS | Encounter Summary ---
:1975 Author Organization [facility] Address [address] [place] [address]. [place] [address] Care Team Providers Name Role Phone No Ref-Primary, Physician Primary Care Provider [phone] Reason for Visit Reason Comments Wound Infection Auth/Cert - Closed Specialty Diagnoses / Procedures Referred By Contact Refer red To Contact Pediatrics Diagnoses Arm pain Cellulitis DM (diabetes mellitus) (H) [id number] [id number] [facility] [address] [place], [place] [address] Phone: Fax: Referral ID Status Reason Start Date Expiration Date Visits Requ ested Visits Authorized [id number] Closed 10/26/2012 04/24/2013 1 1 Encounter Details Date Type Department Care Team Description [facility] [address] [place], [place] [id number] Cellulitis (Primary Dx); 10/28/2012 Encounter [facility] Pediatric Eduardo Hoover MD [facility] [address] [place] [id number] DM (diabetes mellitus) (H); [address] MD [address] [place], [place] [id number] Arm pain; Blvd Constipation; [place], [place] Cellulitis an d abscess [id number] Social History Tobacco Use Types Packs/Day Years Used Date Smoking Tobacco: Never Assessed Sex Assigned at Date Recorded Not on file documented as of this encounter Last Filed Vital Signs Vital Sign Reading Time Taken Comments Blood Pressure 109/69 10/28/2012 8:00 AM CDT Pulse - - Temperature 36.7 ??C (98 ??F) 10/28/2012 8:00 AM CDT Respiratory Rate 18 10/28/2012 8:00 AM CDT Oxygen Saturation 96% 10/27/2012 11:46 PM CDT Inhaled Oxygen Concentration - - Weight 121.5 kg (267 lb 13.7 oz) 10/26/2012 5:05 AM CDT Height 177.8 cm (5' 10) 10/26/2012 5:05 AM CDT Body Mass Index 38.43 10/26/2012 5:05 AM CDT documented in this encounter Discharge Summaries Elliott Terry MD - 10/28/2012 8:56 AM CDT Discharge Summary Kaiden Reyna Date of : 1975 Age: [age] year old Date of Admission: 10/26/2012 Date of Discharge: 10/28/2012 Admitting Physician: Eliazar Pierce MD Discharge Physician: Elliott Terry MD, MD Discharging Service: Hospitalist Home clinic: I recommend follow up at the [facility] Discharge Diagnosis: 1. Left forearm abscess with cellulitis. S/p I&D in clinic 10/24/12. Cultures grew MRSA susceptible to clindamycin. 2. MRSA skin infection. 3. Diabetes mellitus, type 2. 4. Suspected drug reaction to vancomycin. Discharge Disposition: Discharged to home Allergies: Allergies Allergen Reactions ??? Penicillins Discharge Medications: Current Discharge Medication List START taking these medications Details magnesium hydroxide (MILK OF MAGNESIA) 400 MG/5ML suspension Take 30 mLs by mouth daily as needed for constipation. Qty: 105 mL, Refills: 0 Associated Diagnoses: Constipation clindamycin (CLEOCIN) 300 MG capsule Take 1 capsule by mouth 4 times daily. Qty: 40 capsule, Refills: 0 Associated Diagnoses: Cellulitis and abscess CONTINUE these medications which have CHANGED Details oxyCODONE-acetaminophen (PERCOCET) 5-325 MG per tablet Take 1-2 tablets by mouth every 6 hours as needed. Qty: 28 tablet, Refills: 0 Associated Diagnoses: Arm pain CONTINUE these medications which have NOT CHANGED Details METFORMIN HCL PO Take 1,000 mg by mouth 2 times daily (with meals). Insulin Lispro Prot & Lispro (HUMALOG MIX 75/25 SC) Inject 5 Units Subcutaneous See Admin Instructions. Use 5 units when blood glucose greater then 200. Patient checking before and after meals. STOP taking these medications CEPHALEXIN PO Comments: Reason for Stopping: sulfamethoxazole-trimethoprim (BACTRIM DS) 800-160 MG per tablet Comments: Reason for Stopping: Condition on Discharge: Discharge condition: Stable Discharge vitals: Blood pressure 109/69, temperature 98 ??F (36.7 ??C), temperature source Oral, resp. rate 18, height 1.778 m (5' 10), weight 121.5 kg (267 lb 13.7 oz), SpO2 96.00%. Code status on discharge: Full Code Physical exam on day of discharge: GENERAL: Comfortable. Cooperative. PSYCH: pleasant, oriented, No acute distress. EYES: PERRLA, Normal conjunctiva. HEART: Regular rate and rhythm. No JVD. Pulses normal. No edema. LUNGS: Clear to auscultation, normal Respiratory effort. ABDOMEN: Soft, no hepatosplenomegaly, normal bowel sounds. EXTREMETIES: No clubbing, cyanosis or ischemia. Left forearm with small area of induration under scabbed wound. Erythema improving. SKIN: Dry to touch, No rash. History of Present Illness and Hospital Course: See detailed admission note for full details. Patient is a 37 year old male with diabetes. He developed an abscess on his left ventral forearm 10/20. He went to clinic 10/24 ([facility]) and had it incised and drained. It became more erythematous with extension of erythema up his forearm. It was also tender so he came to the ED on 10/26. He was admitted and started on IV vancomycin. He had a drug reaction that was thought to be due to vancomycin. Cultures from [facility] grew MRSA susceptible to clindamycin. Antibiotics were changed to IV clindamycin. The erythema extending up his arm has improved.He still has an area of induration under a scabbed wound that is improving and no longer draining. He was seen by Surgery for consideration of bedside I&D. I&D was offered but Kaiden preferrednot to have this done. He seems to be improving. He will discharge home with 10 more days of oral clindamycin. I am asking that he follow up with primary care later this week. He is new to the area anddoes not have a PCP. He lives in [place]. I am recommending the [facility] for he and his family to establish primary care. Procedures / Imaging: None Consultations: Consultation during this admission received from surgery Significant Results: Discussed above Pending Results: None Discharge Instructions and Follow-Up: Discharge diet: Diabetic (1999 ADA) Discharge activity: Activity as tolerated Discharge follow-up: Follow up with primary care provider in 4-5 days Outpatient therapy: None Home Care agency: None Other instructions: None Total time spent in face to face contact with the patient and coordinating discharge was: 25 Minutes documented in this encounter Discharge Instructions AttachmentsThe following attachments cannot be sent through Care Everywhere. ABSCESS, Antiobiotic Treatment OnlyCELLULITISdocumented in this encounter Medications at Time of Discharge Medication Sig Dispensed Refills Start Date End Date clindamycin (CLEOCIN) Take 1 capsule by 40 capsule 0 013 10/31/2012 300 MG mouth 4 times daily. capsuleIndications: Cellulitis and abscess Insulin Lispro Prot & Inject 5 Units 0 11/07/2012 Lispro (HUMALOG MIX Subcutaneous See Admin 75/25 SC) Instructions. Use 5 units when blood glucose greater then 200. Patient checking before and after meals. magnesium hydroxide Take 30 mLs by mouth 105 mL 0 201211/05/2012 (MILK OF MAGNESIA) 400 daily as needed for MG/5ML constipation. suspensionIndications: Constipation METFORMIN HCL PO Take 1,000 mg by mouth 0 11/07/2012 2 times daily (with meals). oxyCODONE-acetaminophe Take 1-2 tablets by 28 tablet 0 10/1311/05/2012 n (PERCOCET) 5-325 MG mouth every 6 hours as per tabletIndications: needed. Arm pain documented as of this encounter Progress Notes Rebeka Hernandez MD - 10/27/2012 1:10 PM CDT Pt is not able to express pus from the wound any longer and wishes to avoid an I/D. Supplies at bedside if needed at later time. Rebeka Hernandez MD Elliott Terry MD - 10/27/2012 10:00 AM CDT [facility] Hospitalist Progress Note Assessment and Plan: Patient is a 37 year old male with diabetes. He developed an abscess on his left dentral forearm 10/20. He went to clinic 10/24 ([facility]) and had it incised and drained. It became more erythematous with extension of erythema up his forearm. and tender so he came to the ED on 10/26. He was admitted and started on IV vancomycin. Cultures from [facility] grew MRSA susceptible to clindamycin. Antibiotics were changed to IV clindamycin yesterday. The erythema extending up his arm has improved but he still has an area of induration under a scabbed wound that is draining purulent drainage. 1. Left ventral forearm abscess with cellulitis. Wound culture from clinic is growing MRSA susceptible to clindamycin. Cellulitis of arm is improving, but he still has a quarter sized area of induration that is draining purulent drainage. Continue IV clindamycin. I will ask Surgery to see to consider bedside I&D. 2. Diabetes mellitus, type 2. He is normally on metformin and prn humalog 75/25 (if BG is over 200).His metformin has been held here and his BG has been pretty good. Continue novolog insulin as needed. 3. Dispo. Depends on Surgery recommendations. Interval History: Left forearm wound draining purulent drainage. Medications: I have reviewed this patient's current medications Physical Exam: Blood pressure 111/62, temperature 98.1 ??F (36.7 ??C), temperature source Oral, resp. rate 16, height 1.778 m (5' 10), weight 121.5 kg (267 lb 13.7 oz), SpO2 97.00%. Intake/Output Summary (Last 24 hours) at 10/27/12 1012 Last data filed at 10/27/12 0633 Gross per 24 hour Intake 193.4 ml Output 0 ml Net 193.4 ml GENERAL: Comfortable. Cooperative. PSYCH: pleasant, oriented, No acute distress. EYES: PERRLA, Normal conjunctiva. HEART: Regular rate and rhythm. No JVD. Pulses normal. No edema. LUNGS: Clear to auscultation, normal Respiratory effort. ABDOMEN: Soft, no hepatosplenomegaly, normal bowel sounds. EXTREMETIES: No clubbing, cyanosis or ischemia. Left forearm on ventral aspect with improved area ofertythema. There is still a wound with induration under it- size of a quarter- draining purulent liquid when expressed. SKIN: Dry to touch, No rash. Data: Recent labs, imaging, and other studies were reviewed. Lab 10/26/12 0220 10/26/12 0214 CULT No growth after 1 day No growth after 1 day NA 139 10/27/2012 NA 139 10/26/2012 CHLORIDE 102 10/27/2012 CHLORIDE 103 10/26/2012 BUN 18 10/27/2012 BUN 15 10/26/2012 POTASSIUM 4.1 10/27/2012 POTASSIUM 4.0 10/26/2012 CO2 25 10/27/2012 CO2 26 10/26/2012 CR 1.15 10/27/2012 CR 1.00 10/26/2012 Lab 10/27/12 0612 10/26/12 0220 WBC 6.8 6.2 HGB 14.3 14.2 HCT 41.1 40.8 MCV 85 85 PLT 166 178 Kalee Cotter RN - 10/26/2012 9:11 PM CDT Pt. Experiencing some itching on neck and face with clindamycin running, gave 25mg Benadryl po 45 min. Before starting clindamycin, running clindamycin slower than normal at 35cc/hr. Paged [employer] hospitalist to receive an order for 25mg po Benadryl additionally given now. Elizabeth Esparza MD - 10/26/2012 5:53 PM CDT [facility] Hospitalist Progress Note Interval History: Thinks arm is better but feels all flushed and a bit itchy 30 minutes or so after rec'g vanco. No cpor sob. Given benadryl, then felt like he was getting worse, on re-eval exam was stable to improved from previous-now resting comfortably Medications: I have reviewed this patient's current medications Physical Exam: Blood pressure 135/78, temperature 98.2 ??F (36.8 ??C), temperature source Oral, resp. rate 16, height 1.778 m (5' 10), weight 121.5 kg (267 lb 13.7 oz), SpO2 96.00%. nad looks stated age head nc/at sclera mild injection, eyelids puffy initially face flushed but improved on re eval, no real hives noted, lungs ctab nl effort no stridor, RRR nom /r/g no le edema, skinw/d no c/c abd obese s/nt/nd Data: Recent labs, imaging, and other studies were reviewed. Wound culture from [facility] shows MRSA sensitive to clinda Assessment and Plan: 37 yo m admit with ongoing cellulitis complicated by abscess previously drained despite O pabx 1. MRSA abscess complicated by cellulitis: Abscess drained in outpatient settin, sensitivites noted-change vanco over to clinda 2. ? Med reaction and suspected volume overload, benadryl prn, IV zantac, no indication for steroidsor epi PPX: Ambulate/PCDs Code: Full Dispo: Home as able Kaya Chapa RN - 10/26/2012 2:46 PM CDT Pt resting, no shortness of breath or wheezing present, oxygen saturations stable, VSS. IV fluids stopped per MD orders. Zantac given. Continued to monitor. Kaya Chapa RN - 10/26/2012 2:[address] Khan web paged that Pt is feeling like he is having a medication reaction, feels swollen. Pt slightly groggy. documented in this encounter H&P Notes Eliazar Pierce MD - 10/26/2012 5:13 AM CDT [facility] Hospitalist Admission Note Name: Kaiden Reyna Date of : 1975 Age: [age] year old Date of admission: 10/26/2012 Primary care provider: No Ref-Primary, Physician Chief Complaint: Left arm cellulitis and wound infection History is obtained from the patient History of Present Illness: This patient is a 37 year old male with a significant past medical history of diabetes who presents with the following condition requiring a hospital admission: Left arm cellulitis and abscess Kaiden Reyna is a 37 year old male with a history of diabetes who presents with rash and a wound onhis left arm. The patient reports six days ago he noticed a small bump on his arm that progressed tothe size of a pimple. He reports he took an old prescription of bactrim and saw his primary care physician two days ago and was started on keflex . He had an incision and drainage was done at [facility] in [place] and was sent home after culture was taken. He reports tonight the area had increased swelling and redness. He also reports continued white drainage. He denies any fevers or chills. He notes some nausea tonight. He denies any episodes of emesis. Past Medical History: Past Medical History Diagnosis Date ??? Diabetes mellitus ??? Thyroid disease Past Surgical History: History reviewed. No pertinent past surgical history. Social History: Denies smoking or alcohol abuse Family History: Reviewed and non pertinent Allergies: Allergies Allergen Reactions ??? Penicillins Medications: Prior to Admission medications Medication Sig Last Dose Taking? Auth Provider METFORMIN HCL PO Take by mouth. Yes Reported, Patient Sulfamethoxazole-Trimethoprim (BACTRIM PO) Take by mouth. Yes Reported, Patient Cephalexin (KEFLEX PO) Take by mouth. Yes Reported, Patient oxyCODONE-acetaminophen (PERCOCET) 5-325 MG per tablet Take by mouth every 4 hours as needed. Yes Reported, Patient Review of Systems: A Comprehensive greater than 10 system review of systems was carried out. Pertinent positives and negatives are noted above in HPI. Otherwise negative for contributory information. Physical Exam: Vitals were reviewed Temp: [97.6 ??F (36.4 ??C)-98.6 ??F (37 ??C)] 97.6 ??F (36.4 ??C) Heart Rate: [73-91] 73 Resp: [16-18] 16 BP: (118-145)/(65-86) 124/65 mmHg SpO2: [96 %-99 %] 96 % Constitutional: awake, alert, cooperative and no apparent distress Eyes: lids and lashes normal, pupils equal, round and reactive to light, extra-ocular muscles intact, sclera clear and conjunctiva normal ENT: normocepalic, without obvious abnormality, atramatic Neck: supple, symmetrical, trachea midline, skin normal and no stridor Hematologic / Lymphatic: no cervical lymphadenopathy and no supraclavicular lymphadenopathy Back: symmetric, no curvature and spinous processes are non-tender on palpation Lungs: no increased work of breathing, good air exchange, no retractions and clear to auscultation Cardiovascular: normal apical pulses , normal S1 and S2 and no S3 Abdomen: normal bowel sounds, soft, non-distended and non-tender Musculoskeletal:Extermities Left upper extremity swelling,erythema and small area of site of incision and drainage Marked ,there is tenderness Neurologic: Mental Status Exam: Level of Alertness: awake Cranial Nerves: cranial nerves II-XII are grossly intact Motor Exam: moves all extremities well and symmetrically Neuropsychiatric: General: normal, calm and normal eye contact Level of consciousness: alert / normal Affect: normal Data: All laboratory data reviewed All laboratory and imaging data in the past 24 hours reviewed Lab 10/26/12 0220 WBC 6.2 HGB 14.2 HCT 40.8 MCV 85 PLT 178 No results found for this basename: CULT:* in the last 168 hours Lab 10/26/12 0220 NA 139 POTASSIUM 4.0 CHLORIDE 103 CO2 26 ANIONGAP 11 GLC 101* BUN 15 CR 1.00 GFRESTIMATED 85 GFRESTBLACK >90 ADALI 8.8 MAG -- PHOS -- PROTTOTAL -- ALBUMIN -- BILITOTAL -- ALKPHOS -- AST -- ALT -- Lab 10/26/12219 CR 1.00 Lab 10/26/12219 GLC 101* BGM -- Lab 10/26/12219 HGB 14.2 No results found for this basename: INR:3 in the last 168 hours Lab 10/26/12 022 PLT 178 No results found for this basename: TROPONIN:3,TROPI:3,TROP:3,TROPR:3,TROPONINIES:3 in the last 168 hours No results found for this or any previous visit (from the past 48 hour(s)). Patient`s old medical records reviewed and case discussed with the ED physician. ED course-Reviewed Assessment and Plan: Assessment: This patient is a 37 year old male with a significant past medical history of diabetes whopresents with left arm cellulitis and abscess s/p I&D at his [facility] clinic two days ago. 1.LUE cellulitis and abscess -failed outpatient treatment 2.LUE pain and swelling 3.DM Plan: >Admit to hospitalist >Admit to inpatient >Fever control IV fluids continued Pain management: acetominophen and IV narcotics Nausea and vomiting control measures >Diabetic diet >Advance activity as tolerated >Anticipatory guidance offered (See orders placed for this visit by me ) >prophylaxis against venous thromboembolism >Additional orders: IV abx -Vancomycin,obtain culture and sensitivity result from [facility] ,follow culture ,pain control,elevate affected arm ,SSI and monitor closely - Home medication reviewed and will be continued as appropriate once pharmacy reconciliation is completed >anticipate discharge to home and No discharge anticipated today documented in this encounter Consult Notes Rebeka Hernandez MD - 10/27/2012 10:50 AM CDTAssociated Order(s): SURGERY GENERAL IP CONSULT General Surgery Consultation Kaiden Reyna Age: [age] year old Date of : 1975 Date of Admission: 10/26/2012 Reason for consult: Left forearm infection Requesting physician: Vinicio Terry MD Assessment and Plan: Assessment: Left forearm MRSA infection, improving. Plan: I/D at bedside for possible small undrained fluid collection. Chief Complaint: Left forearm redness x 1 week. History is obtained from the patient. History of Present Illness: This patient is a 37 year old male with a significant past medical history of diabetes whopresents with 1 week of left forearm redness. I/D and cultured by [facility] clinic 2 days prior to admission. Cultures have grown MRSA. Continues to have purulent drainage since. Admitted through ED yesterday for expanding area of redness and pain despite keflex and bactrim x 2 days. Past Medical History: has a past medical history of Diabetes mellitus and Thyroid disease. Past Surgical History: History reviewed. No pertinent past surgical history. Social History: History Substance Use Topics ??? Smoking status: Not on file ??? Smokeless tobacco: Not on file ??? Alcohol Use: Not on file Family History: This patient has no significant family history Allergies: PCN Medications: No current facility-administered medications on file prior to encounter. Current Outpatient Prescriptions on File Prior to Encounter: Insulin Lispro Prot & Lispro (HUMALOG MIX 75/25 SC) Inject 5 Units Subcutaneous See Admin Instructions. Use 5 units when blood glucose greater then 200. Patient checking before and after meals. ??? sodium chloride (PF) 3 mL Intravenous Q8H ??? insulin aspart 1-10 Units Subcutaneous TID AC ??? insulin aspart 1-7 Units Subcutaneous At Bedtime ??? pneumococcal vaccine 0.5 mL Intramuscular Prior to discharge ??? omeprazole 20 mg Oral QAM AC ??? clindamycin 900 mg Intravenous Q8H ??? ranitidine 50 mg Intravenous Q8H ??? DISCONTD: vancomycin (VANCOCIN) IV - ADULT 1,500 mg Intravenous Q8H Review of Systems: The Review of Systems is negative other than noted in the HPI Physical Exam: Gen: This is a well developed, obese male in no apparent distress. Blood pressure 111/62, temperature 98.1 ??F (36.7 ??C), temperature source Oral, resp. rate 16, height 1.778 m (5' 10), weight 121.5 kg (267 lb 13.7 oz), SpO2 97.00%. HEENT - Normocephalic, atraumatic, mucous membranes moist. no scleral icterus. Neck - supple without masses Lungs - clear to ascultation. Heart - Regular rate & rhythm without murmur Abdomen: soft, non-distended, non-tender and no masses palpatednormal bowel sounds Extremities - left forearm wound with expression of minimal cloudy serous fluid. No fluctuance. 1 cmarea of induration surrounding wound. Min redness extending beyond. Neurologic - nonfocal Data: WBC - WBC Date Value Range Status 10/27/2012 6.8 4.0 - 11.0 10e9/L Final ], HgB - Hemoglobin Date Value Range Status 10/27/2012 14.3 13.3 - 17.7 g/dL Final ] Rebeka Hernandez MD documented in this encounter ED Notes Nelson Berry - 10/26/2012 4:55 AM CDT Patient transported to room 252 via cart. Daily, Joceline Liao RN - 10/26/2012 4:42 AM CDT Admitted to Dr. Pierce with cellulitis of left forearm. Area marked. CMS intact. Redness and warmthWith raised area . Able to be up per self. Alert and oriented x3. Eduardo Hoover MD - 10/26/2012 2:09 AM CDT History Chief Complaint: Wound Infection HPI Kaiden Reyna is a 37 year old male with a history of diabetes who presents with a wound on his leftarm. The patient reports six days ago he noticed a small bump on his arm that progressed to the sizeof a pimple. He reports he took an old prescription of bactrim and saw his primary care physician. He reports an incision and drainage was done and he was started on keflex and bactrim. He reports tonight the area had increased swelling and redness. He also reports continued white drainage. He denies any fevers or chills. He notes some nausea tonight. He denies any episodes of emesis. He reports his blood sugars have been running in the mid 100s. He voices no other concerns at this time. Allergies: Penicillins Medications: Metformin Bactrim Keflex Percocet Past Medical History: diabetes mellitus Past Surgical History: History reviewed. No pertinent past surgical history. Family History: No pertinent family history. Social History: No tobacco use history. Review of Systems Constitutional: Negative for fever and chills. Gastrointestinal: Positive for nausea. Negative for vomiting. Skin: Positive for wound. All other systems reviewed and are negative. Physical Exam First Vitals: BP: 145/86 mmHg Heart Rate: 87 Temp: 98.6 ??F (37 ??C) Resp: 18 SpO2: 99 % Physical Exam Constitutional: No distress. HENT: Mouth/Throat: Oropharynx is clear and moist. Eyes: Pupils are equal, round, and reactive to light. Neck: Normal range of motion. Cardiovascular: Normal heart sounds. Exam reveals no decreased pulses. Pulmonary/Chest: Effort normal. No respiratory distress. Abdominal: Soft. There is no tenderness. Musculoskeletal: Normal range of motion. He exhibits no tenderness. Lymphadenopathy: He has no cervical adenopathy. Neurological: He is alert. No cranial nerve deficit. Skin: cellulitis with erythema and a confluent area of the left volar forearm. Edema of left forearm. Site of a small incision and drainage site with small induration. Distal pulse intact. Distal cap refillintact. Distal neuro intact. Psychiatric: He has a normal mood and affect. Emergency Department Course Laboratory: CBC: WNL (WBC 6.2, HGB 14.2, PLT 178) BMP: glucose 101 high, o/w WNL (creatinine 1.00) Blood culture x 2: pending Procedures: [facility] Procedure Note Limited Bedside ED Ultrasound of Soft Tissue: PROCEDURE: PERFORMED BY: Dr. Jerson Hoover INDICATIONS/SYMPTOM: Skin redness, evaluate for abscess, cellulitis or foreign body PROBE: High frequency linear probe BODY LOCATION: Soft tissue located on extremity FINDINGS: Cobblestoning of soft tissue: absent Hypoechoic fluid (ie abscess) identified: present INTERPRETATION: The soft tissue and muscle layers were evaluated. Findings indicate abscess IMAGE DOCUMENTATION: Images were not archived Procedure:Needle aspiration Verbal consent obtained from the patient. I used a 19 gauge needle to aspirate the abscess. There were no complications. The patient toleratedthe procedure well. There were no complications. Emergency Department Course: I reviewed the patient's medical record. The patient was seen and examined by myself. I discussed the course of care with the patient including laboratory and diagnostic studies. He understands and is agreeable to the plan. IV inserted and blood drawn. 03:00 I spoke on the phone with Dr Pierce from the hospitalist service. Recheck. I discussed the laboratory and radiology results with the patient and he understands. The patient will be admitted to the hospital under the care of Dr. Pierce for further evaluation and treatment. The patient was aware of this plan and was in agreement. All questions were answered prior to transfer to the admitting floor. Impression & Plan Medical Decision Making: The patient is a diabetic and reports that he has had previous abscesses on other locations. He saidthis episode started earlier this week, it however the cellulitis has progressed despite being treated with Bactrim and keflex for most of this week. Also he had a first needle aspiration and then incision and drainage and despite this he has worsened. He???s complaining of systemic symptoms with somenausea and I felt at this point he had failed outpatient treatment. I therefore started him on Rocephin and vancomycin. He has a culture from the abscess drainage which is pending. I attempted to aspirate the fluid culture I saw on ultrasound however there is no pus there and the patient was admitted to the hospital in good condition. Diagnosis: 1 Cellulitis 2 DM (diabetes mellitus) 3 Arm pain I, Arely Gibbons, am serving as a scribe at 2:09 AM on 10/26/2012 to document services personally performed by Dr. Hoover, based on my observations and the provider's statements to me. Arely Gibbons 10/26/2012 [facility] EMERGENCY DEPARTMENT Eduardo Hoover MD 10/26/12 0627 Shoshana Spicer 10/26/2012 1:46 AM CDTBed:A01
Expected date:10/26/12
Expected time: 1:31 AM
Means of arrival:Ambulance
Comments:
HE 37yo Lea Wang RN - 10/26/2012 1:46 AM CDT Pt seen in clinic for infection to left forearm, worsening symptoms while on antibiotics, CMS to armintact. ABC intact. documented in this encounter Miscellaneous Notes Plan of Care - Leann Salazar RN - 10/28/2012 12:50 PM CDT Problem: IP GENERAL POC-ADULT,OB,BEHAVIORAL [facility]CPM Goal: Individualization/Patient-Specific Goal (Adult,OB,Behavioral The patient and/or their medical sales representative will achieve their patient-specific goals related to the plan of care. The patient-specific goals include: 1. Pain managed with oral pain medication 2. Afebrile 3. Voiding Outcome: Adequate for Discharge Date Met: 10/28/12 No c/o pain. No drainage noted from arm. Eating and drinking well. Discharge teaching done with pt and filled rx's given to pt for home. Discharged to home. Plan of Care - Monie Herrera RN - 10/28/2012 10:12 AM CDT Problem: IP GENERAL POC-ADULT,OB,BEHAVIORAL FVCPM Goal: Individualization/Patient-Specific Goal (Adult,OB,Behavioral The patient and/or their medical sales representative will achieve their patient-specific goals related to the plan of care. The patient-specific goals include: 1. Pain managed with oral pain medication 2. Afebrile 3. Voiding Good I/O Eating well. Minimal pain.Refusing pain meds at this time. Plan of Care - Nhung Small RN - 10/28/2012 5:36 AM CDT Problem: IP GENERAL POC-ADULT,OB,BEHAVIORAL FVCPM Goal: Individualization/Patient-Specific Goal (Adult,OB,Behavioral The patient and/or their medical sales representative will achieve their patient-specific goals related to the plan of care. The patient-specific goals include: 1. Pain managed with oral pain medication 2. Afebrile 3. Voiding Outcome: Improving Afebrile. VSS. Left forearm, decreased redness/swelling. Wound remains closed, no drainage. Open to air. Pain rated 4/10 declined medication. LUE elevated on pillows. Voiding. Plan of Care - Savanna Vega RN - 10/27/2012 11:11 PM CDT Problem: IP GENERAL POC-ADULT,OB,BEHAVIORAL FVCPM Goal: Individualization/Patient-Specific Goal (Adult,OB,Behavioral The patient and/or their medical sales representative will achieve their patient-specific goals related to the plan of care. The patient-specific goals include: 1. Pain managed with oral pain medication 2. Afebrile 3. Voiding Outcome: Improving Blood sugars 110 and 163, no coverage needed. Dilaudid iv x1 and oxycodone 10mg po x 1 with good relief. States had 2 bm's this shift. Cms intact to left arm. Family visiting and supportive. Plan of Care - Graciela Lucas RN - 10/27/2012 1:40 PM CDT Problem: IP GENERAL POC-ADULT,OB,BEHAVIORAL FVCPM Goal: Individualization/Patient-Specific Goal (Adult,OB,Behavioral The patient and/or their medical sales representative will achieve their patient-specific goals related to the plan of care. The patient-specific goals include: 1. Pain managed with oral pain medication 2. Afebrile 3. Voiding Patient receiving dilaudid IV for pain. Talked to about transferring to oral medication. Afebrile. Voiding well. Tolerating regular diet. Reports constipation. Medication given to help with. VSS. IV site changed successfully. Patient states he's MRSA positive. Redness at site has reduced. Patient states it's getting better. No drainage. Blood sugars not requiring novolog insulin. Will continue to monitor and provide for needs. Plan of Care - Loni Ugarte RN - 10/27/2012 5:13 AM CDT Problem: IP GENERAL POC-ADULT,OB,BEHAVIORAL FVCPM Goal: Individualization/Patient-Specific Goal (Adult,OB,Behavioral The patient and/or their medical sales representative will achieve their patient-specific goals related to the plan of care. The patient-specific goals include: 1. Pain managed with oral pain medication 2. Afebrile 3. Voiding Outcome: Improving VSS, afebrile, no N/V, up to BR and voiding well, tolerating PO intake, IV SL with antbx, no itchingwith antbx running slow and premed with Benadryl. Pain controlled with IV dilaudid and PO oxycodone. 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 The patient-specific goals include: 1. Pain managed with oral pain medication 2. Afebrile 3. Voiding Outcome: No Change Pt. Vss, afebrile, left forearm, red around boil area, clear fluid oozing from boil, throbbing at times, elevated on pillow, iv antibiotic continues(clindamycin), vancomycin discontinued, continue to monitor pain Plan of Care - Kaya Chapa RN - 10/26/2012 2:02 PM CDT Problem: IP GENERAL POC-ADULT,OB,BEHAVIORAL FVCPM Goal: Individualization/Patient-Specific Goal (Adult,OB,Behavioral The patient and/or their medical sales representative will achieve their patient-specific goals related to the plan of care. The patient-specific goals include: 1. Pain managed with oral pain medication 2. Afebrile 3. Voiding Outcome: Improving Pt alert and oriented x 3. Up ad mitzi. Cleocin and benadry started per MD orders. Left forarm reddened and slightly edematous. Contact isolation for MRSA. IV per MD orders. Novolog for blood sugar coverage. Tolerating mod CHO diet. Pharmacy-Admission Medication History - Elizabeth Coulter, [facility] - 10/26/2012 8:49 AM CDT Admission medication history interview status for this patient is complete. See [facility] admission navigator for allergy information, prior to admission medications and immunization status. Medication history interview source(s):Patient Medication history resources (including written lists, pill bottles, clinic record):Patient and Bottles Primary pharmacy:[facility] Changes made to [employer] medication list: Added: Humalog 75/25 mix Deleted: none Changed: Percocet Contacted [facility] to determine insulin, the doctor gave Humalog 75/25 the nurse didn't have documentation that the doctor gave the patient the rest of the bottle of insulin, but that is what the patient reports and gave him instructions to give himself 5 units when his blood glucose over 200. Prior to Admission medications Medication Sig Last Dose Taking? Auth Provider CEPHALEXIN PO Take 500 mg by mouth 4 times daily. 10/25/2012 at 2200 Yes Dummy, Bfp User METFORMIN HCL PO Take 1,000 mg by mouth 2 times daily (with meals). 10/25/2012 at 1800 Yes Dummy, BfpUser oxyCODONE-acetaminophen (PERCOCET) 5-325 MG per tablet Take 1-2 tablet by mouth every 6 hours as needed. 10/25/2012 at 1700 Yes Dummy, Bfp User sulfamethoxazole-trimethoprim (BACTRIM DS) 800-160 MG per tablet Take 2 tablets by mouth 2 times daily. 10/25/2012 at 1800 Yes Dummy, Bfp User Insulin Lispro Prot & Lispro (HUMALOG MIX 75/25 SC) Inject 5 Units Subcutaneous See Admin Instructions. Use 5 units when blood glucose greater then 200. Patient checking before and after meals. 10/25/2012 at Unknown Yes Dummy, Bfp User Plan of Care - Nhung Small, [facility] - 10/26/2012 7:53 AM CDT Problem: IP GENERAL POC-ADULT,OB,[facility]AVIORAL [facility] Go[facility]: Individualization/Patient-Specific Goal (Adult,OB,Behavioral The patient and/or their medical sales representative will achieve their patient-specific goals related to the plan of care. The patient-specific goals include: 1. Pain managed with oral pain medication 2. Afebrile 3. Voiding Outcome: No Change Afebrile. VSS. BG 123 this am. Left arm red, hot. Slightly less than markings. Removed gauze. Wound open and draining scant amount of serous fluid. Modified carb diet. Appetite good. Voiding. Pain rated 8/10 managed with oral and iv pain medication. Pharmacy-Vancomycin Dosing Service - Ryan Cook [facility] - 10/26/2012 6:10 AM CDT Day 1 of Vancomycin therapy in a 37 y.o. male diabetic patient with treating Dx of cellulitis after failed outpatient antibiotic. ABW = 122kg. SCr = 1mg/dL. Estimated CrCl ~135mL/min. Protocol dosing is 1500mg IV Q8H, for an expected trough in the 15-20mg/L range. Wound culture is pending (results @ [facility]). Pharmacy will co-ordinate therapy goals with the treating physician(s) and will adjust therapy accordingly. GASPER, [facility]. documented in this encounter Plan of Treatment Not on filedocumented as of this encounter Procedures Procedure Name Priority Date/Time Associated Comments Diagnosis GLUCOSE BY METER Routine 10/28/2012 8:11 Results for this AM CDT procedure are i n the results section. GLUCOSE BY METER Routine 10/28/2012 6:28 Results for this AM CDT procedure are i n the results section. GLUCOSE BY METER Routine 10/27/2012 9:15 Results for this PM CDT procedure are i n the results section. GLUCOSE BY METER Routine 10/27/2012 5:02 Results for this PM CDT procedure are i n the results section. GLUCOSE BY METER Routine 10/27/2012 12:59 Results for this PM CDT procedure are i n the results section. GLUCOSE BY METER Routine 10/27/2012 8:44 Results for this AM CDT procedure are i n the results section. HEMOGLOBIN A1C Routine 10/27/2012 6:12 Results fo r this AM CDT procedure are i n the results section. DIPHENHYDRAMINE LEVEL Routine 10/27/2012 6:12 Res ults for this AM CDT procedure are i n the results section. BASIC METABOLIC PANEL Routine 10/27/2012 6:12 Res ults for this AM CDT procedure are i n the results section. CBC WITH PLATELETS Routine 10/27/2012 6:12 Result s for this AM CDT procedure are i n the results section. GLUCOSE BY METER Routine 10/26/2012 10:11 Results for this PM CDT procedure are i n the results section. GLUCOSE BY METER Routine 10/26/2012 4:59 Results for this PM CDT procedure are i n the results section. GLUCOSE BY METER Routine 10/26/2012 12:49 Results for this PM CDT procedure are i n the results section. GLUCOSE BY METER Routine 10/26/2012 6:04 Results for this AM CDT procedure are i n the results section. CBC WITH PLATELETS & STAT 10/26/2012 2:20 Resu lts for this DIFFERENTIAL AM CDT procedure are i n the results section. BLOOD CULTURE STAT 10/26/2012 2:20 Results for this AM CDT procedure are i n the results section. BASIC METABOLIC PANEL STAT 10/26/2012 2:20 Res ults for this AM CDT procedure are i n the results section. BLOOD CULTURE STAT 10/26/2012 2:14 Results for this AM CDT procedure are i n the results section. documented in this encounter Results (ABNORMAL) Glucose by meter (10/28/2012 8:11 AM CDT) P athologist Signature Glucose 124 (H) 60 - 99 POINT OF CARE mg/dL TEST, GLUCOSE Specimen Anatomical Collection Method Collection Time Receive d Time (Source) Location / / Volume Laterality 10/28/2012 8:11 AM 3 8:15 CDT AM CDT Eliazar HOLLAND - ENRIQUE POCT Performing Organization Address [facility]/ZIP Code Phon e Number FV POINT OF CARE TEST, GLUCOSE POINT OF CARE TEST, GLUCOSE (ABNORMAL) Glucose by meter (10/28/2012 6:28 AM CDT) P athologist Signature Glucose 120 (H) 60 - 99 POINT OF CARE mg/dL TEST, GLUCOSE Comment: Dr/RN Notified Specimen Anatomical Collection Method Collection Time Receive d Time (Source) Location / / Volume Laterality 10/28/2012 6:28 AM 3 6:35 CDT AM CDT Eliazar HOLLAND - ENRIQUE POCT Performing Organization Address [facility]/ZIP Code Phon e Number FV POINT OF CARE TEST, GLUCOSE POINT OF CARE TEST, GLUCOSE (ABNORMAL) Glucose by meter (10/27/2012 9:15 PM CDT) P athologist Signature Glucose 163 (H) 60 - 99 POINT OF CARE mg/dL TEST, GLUCOSE Specimen Anatomical Collection Method Collection Time Receive d Time (Source) Location / / Volume Laterality 10/27/2012 9:15 PM 3 9:20 CDT PM CDT Eliazar HOLLAND - ENRIQUE POCT Performing Organization Address [facility] Code Phon e Number FV POINT OF CARE TEST, GLUCOSE POINT OF CARE TEST, GLUCOSE (ABNORMAL) Glucose by meter (10/27/2012 5:02 PM CDT) P athologist Signature Glucose 110 (H) 60 - 99 POINT OF CARE mg/dL TEST, GLUCOSE Specimen Anatomical Collection Method Collection Time Receive d Time (Source) Location / / Volume Laterality 10/27/2012 5:02 PM 3 5:25 CDT PM CDT Eliazar HOLLAND - ENRIQUE POCT Performing Organization Address [facility] Phon e Number FV POINT OF CARE TEST, GLUCOSE POINT OF CARE TEST, GLUCOSE (ABNORMAL) Glucose by meter (10/27/2012 12:59 PM CDT) P athologist Signature Glucose 131 (H) 60 - 99 POINT OF CARE mg/dL TEST, GLUCOSE Specimen Anatomical Collection Method Collection Time Receive d Time (Source) Location / / Volume Laterality 10/27/2012 12:59 10/27/2012 1:05 PM CDT PM CDT Eliazar HOLLAND - ENRIQUE POCT Performing Organization Address [facility] Phon e Number FV POINT OF CARE TEST, GLUCOSE POINT OF CARE TEST, GLUCOSE (ABNORMAL) Glucose by meter (10/27/2012 8:44 AM CDT) P athologist Signature Glucose 112 (H) 60 - 99 POINT OF CARE mg/dL TEST, GLUCOSE Specimen Anatomical Collection Method Collection Time Receive d Time (Source) Location / / Volume Laterality 10/27/2012 8:44 AM 3 8:50 CDT AM CDT Eliazar NUNEZ POCT Performing Organization Address [facility] Phon e Number FV POINT OF CARE TEST, GLUCOSE POINT OF CARE TEST, GLUCOSE (ABNORMAL) Diphenhydramine Level (10/27/2012 6:12 AM CDT) [facility] gist Method Time Signature Diphenhydramine 57 (H) [facility] LAB Comment: Reference range: 30 ??to ??50 Unit: ng/ml (Note) ?The stated reference range is t he range where a ?significant antihistaminic effe ct is expected ?without significant sedation. ? ?When sedation is ?desired, the therapeutic range would be approximately ?50 - 300 ng/ml. Analysis performed by [employer], [address] [place] [address] Specimen Anatomical Collection Method Collection Time Receive d Time (Source) Location / / Volume Laterality Blood specimen 10/27/2012 6:12 AM 013 6:16 (specimen) CDT AM CDT Elizabeth Esparza MD LAB - BLOOD ORDERABLES Performing Organization Address [facility] e Carlos [facility] [address], [place] [address] [facility] LAB (ABNORMAL) Hemoglobin A1c (10/27/2012 6:12 AM CDT) athologist Signature Hemoglobin A1C 7.0 (H) 4.3 - 6.0 [facility] LAB Specimen Anatomical Collection Method Collection Time Receive d Time (Source) Location / / Volume Laterality Blood specimen 10/27/2012 6:12 AM 013 6:16 (specimen) CDT AM CDT Eliazar Pierce MD LAB - BLOOD ORDERABLES Performing Organization Address [facility] e Carlos [place] [address], [place] [address] [facility] LAB CBC with platelets (10/27/2012 6:12 AM CDT) athologist Signature WBC 6.8 4.0 - 11.0 [place] 10e9/L [facility] RBC Count 4.84 4.4 - 5.9 [place] 10e12/L [facility] Hemoglobin 14.3 13.3 - [place] 17.7 g/dL [facility] Hematocrit 41.1 40.0 - [place] 53.0 % [facility] MCV 85 78 - 100 [place] fl [facility] MCH 29.5 26.5 - [facility] 33.0 pg [facility] MCHC 34.8 31.5 - [place] 36.5 g/dL [facility] RDW 13.0 10.0 - [place] 15.0 % [facility] Platelet Count 166 150 - 450 [place] 10e9/[facility] LAB Specimen Anatomical Collection Method Collection Time Receive d Time (Source) Location / / Volume Laterality Blood specimen 10/27/2012 6:12 AM 013 6:16 (specimen) CDT AM CDT Eliazar Pierce MD LAB - BLOOD ORDERABLES Performing Organization Address City/State/ZIP Code Phon jessie Palmer [facility] [address], [place] [address] [facility] LAB (ABNORMAL) Basic metabolic panel (10/27/2012 6:12 AM CDT) P athologist Signature Sodium 139 133 - 144 [place] mmol/L [facility] Potassium 4.1 3.4 - 5.3 [place] mmol/L [facility] Chloride 102 94 - 109 [place] mmol/L [facility] Carbon Dioxide 25 20 - 32 [place] mmol/L [facility] Anion Gap 12 6 - 17 [place] mmol/L [facility] Glucose 115 (H) 60 - 99 [place] mg/dL [facility] Urea Nitrogen 18 5 - 24 [place] mg/dL [facility] Creatinine 1.15 0.66 - [facility] 1.25 mg/dL [facility] GFR Estimate 72 >60 [place] mL/min/1.[address] LAB GFR Estimate If 88 >60 [place] Black mL/min/[address] [place] [address] LAB Calcium 8.8 8.5 - 10.4 [place] mg/dL [facility] Specimen Anatomical Collection Method Collection Time Receive d Time (Source) Location / / Volume Laterality Blood specimen 10/27/2012 6:12 AM 013 6:16 (specimen) CDT AM CDT Eliazar Pierce MD LAB - BLOOD ORDERABLES Performing Organization Address City/[facility]/ZIP [place] Phon jessie Palmer [facility] [address], [place] [address] [facility] LAB (ABNORMAL) Glucose by meter (10/26/2012 10:11 PM CDT) P athologist Signature Glucose 191 (H) 60 - 99 POINT OF CARE mg/dL TEST, GLUCOSE Specimen Anatomical Collection Method Collection Time Receive d Time (Source) Location / / Volume Laterality 10/26/2012 10:11 10/26/2012 PM CDT 10:15 PM CDT Eliazar HOLLAND - ENRIQUE POCT Performing Organization Address City/[facility]/ZIP Code Phon e Number FV POINT OF CARE TEST, GLUCOSE POINT OF CARE TEST, GLUCOSE (ABNORMAL) Glucose by meter (10/26/2012 4:59 PM CDT) P athologist Signature Glucose 120 (H) 60 - 99 POINT OF CARE mg/dL TEST, GLUCOSE Specimen Anatomical Collection Method Collection Time Receive d Time (Source) Location / / Volume Laterality 10/26/2012 4:59 PM 3 5:00 CDT PM CDT Eliazar HOLLAND - ENRI[place] POCT Performing Organization Address [facility] Code Phon e Number FV POINT OF CARE TEST, GLUCOSE POINT OF CARE TEST, GLUCOSE (ABNORMAL) Glucose by meter (10/26/2012 12:49 PM CDT) athologist Signature Glucose 142 (H) 60 - 99 POINT OF CARE mg/dL TEST, GLUCOSE Specimen Anatomical Collection Method Collection Time Receive d Time (Source) Location / / Volume Laterality 10/26/2012 12:49 10/26/2012 PM CDT 12:50 PM CDT Eliazar HOLLAND - ENRIQUE POCT Performing Organization Address [facility] Code Phon e Number FV POINT OF CARE TEST, GLUCOSE POINT OF CARE TEST, GLUCOSE (ABNORMAL) Glucose by meter (10/26/2012 6:04 AM CDT) P athologist Signature Glucose 123 (H) 60 - 99 POINT OF CARE mg/dL TEST, GLUCOSE Comment: /RN Notified Specimen Anatomical Collection Method Collection Time Receive d Time (Source) Location / / Volume Laterality 10/26/2012 6:04 AM 3 6:55 CDT AM CDT Eliazar HOLLAND - ENRIQUE POCT Performing Organization Address [facility] Code Phon e Number FV POINT OF CARE TEST, GLUCOSE POINT OF CARE TEST, GLUCOSE Blood culture (10/26/2012 2:20 AM CDT) Component Value Ref Test Analysis Performed At Patholo gist Range Method Time Signature Specimen Blood Right [facility] Description Arm MICROBIOLOGY Special Aerobic and [facility] anaerobic [facility] LAB bottles received Culture Micro No growth [facility] MICROBIOLOGY Micro Report FINAL [facility] Status 11/01/2012 MICROBIOLOGY Specimen Anatomical Collection Method Collection Time Receive d Time (Source) Location / / Volume Laterality Blood specimen STRUCTURE OF RIGHT 10/26/2012 2:20 AM 0 10/26/2012 9:12 (specimen) UPPER LIMB / CDT AM CDT Unknown Eduardo Hoover MD LAB - MICRO GENERAL ORDERABL ES Performing Organization Address City/State/ZIP Code Phon e Number [facility] [address] [place] [address] [place] [facility] MICROBIOLOGY [facility] LAB (ABNORMAL) Basic metabolic panel (10/26/2012 2:20 AM CDT) athologist Signature Sodium 139 133 - 144 [place] mmol/L [facility] LAB Potassium 4.0 3.4 - 5.3 [place] mmol/L [facility] Chloride 103 94 - 109 [place] mmol/L [facility] Carbon Dioxide 26 20 - 32 [place] mmol/L [facility] Anion Gap 11 6 - 17 [place] mmol/L [facility] Glucose 101 (H) 60 - 99 [place] mg/dL [facility] Urea Nitrogen 15 5 - 24 [place] mg/dL [facility] Creatinine 1.00 0.66 - [facility] 1.25 mg/dL [facility] GFR Estimate 85 >60 [place] mL/min/1.[address] LAB GFR Estimate If >90 >60 [place] Black mL/min/[address] [place] [address] LAB Calcium 8.8 8.5 - 10.4 [place] mg/dL [facility] LAB Specimen Anatomical Collection Method Collection Time Receive d Time (Source) Location / / Volume Laterality Blood specimen 10/26/2012 2:20 AM 013 2:25 (specimen) CDT AM CDT Eduardo Hoover MD LAB - BLOOD ORDERABLES Performing Organization Address City/State/ZIP Code Phon e Number [facility] [address] [place] [address] [facility] LAB CBC with platelets differential (10/26/2012 2:20 AM CDT) [facility] gist Method Time Signature WBC 6.2 4.0 - [place] 11.0 [facility] RBC Count 4.80 4.4 - 5.9 [place] 10e12/L [facility] Hemoglobin 14.2 13.3 - [place] 17.7 g/dL [facility] Hematocrit 40.8 40.0 - [place] 53.0 % [facility] MCV 85 78 - 100 [place] fl [facility] MCH 29.6 26.5 - [place] 33.0 pg [facility] MCHC 34.8 31.5 - [place] 36.5 g/dL [facility] RDW 12.8 10.0 - [place] 15.0 % [facility] Platelet Count 178 150 - [address] LAB Diff Method Automated [facility] LAB % Neutrophils 60.7 % [facility] % Lymphocytes 29.8 % [facility] % Monocytes 6.9 % [facility] % Eosinophils 2.2 % [facility] % Basophils 0.2 % [facility] % Immature 0.2 % [place] Granulocytes [facility] Absolute 3.8 1.6 - 8.3 [place] Neutrophil [facility] Absolute 1.9 0.8 - 5.3 [place] Lymphocytes [address] [place] [address] LAB Absolute 0.4 0.0 - 1.3 [place] Monocytes [address] [place] [address] LAB Absolute 0.1 0.0 - 0.7 [place] Eosinophils [address] LAB Absolute 0.0 0.0 - 0.2 [place] Basophils [address] [place] [address] LAB Abs Immature 0.0 0 - 0.4 [place] Granulocytes [address] [place] [address] LAB Specimen Anatomical Collection Method Collection Time Receive d Time (Source) Location / / Volume Laterality Blood specimen 10/26/2012 2:20 AM 013 2:25 (specimen) CDT AM CDT Eduardo Hoover MD LAB - BLOOD ORDERABLES Performing Organization Address City/State/ZIP Code Phon e Number [facility] [address], [place] [address] [facility] LAB Blood culture (10/26/2012 2:14 AM CDT) Component Value Ref Test Analysis Performed At [facility] gist Range Method Time Signature Specimen Blood Right Hand FUM Description MICROBIOLOGY Special Aerobic and [place] Requests anaerobic bottles [facility] LAB Culture Micro Cultured on the 2nd day of i ncubation: Coagulase negative Staphylococcus This [facility] isolate DOES NOT demonstrate inducible clindamycin resist ance in vitro. MICROBIOLOGY Critical Value, preliminary result only, called to and read back by CASA Reyna on 10/28/2012 @1130, tk Cultured on the 2nd day of i ncubation: Strain 2 Coagulase negative Staphylococcus This isolate DOES NOT demonstrate inducible clindamyci n resistance in vitro. Micro Report FINAL 10/31/2012 [facility] Status MICROBIOLOGY Specimen Anatomical Collection Method Collection Time Receive d Time (Source) Location / / Volume Laterality Blood specimen 10/26/2012 2:14 AM 013 9:13 (specimen) CDT AM CDT Organism Antibiotic Method Susceptibility Cultured on the 2nd day of incubation: Ciprofloxacin <=0.5 Susceptible ug/mL coagulase negative staphylococcus this isolate does not demonstrate inducible clindamycin resistance in vitro. (jennifer) Cultured on the 2nd day of incubation: Clindamycin <=0.25 Susceptible ug/mL coagulase negative staphylococcus this isolate does not demonstrate inducible clindamycin resistance in vitro. (jennifer) Cultured on the 2nd day of incubation: Erythromycin >8.0 Resistant ug/mL coagulase negative staphylococcus this isolate does not demonstrate inducible clindamycin resistance in vitro. (jennifer) Cultured on the 2nd day of incubation: Gentamicin <=0.5 Susceptible ug/mL coagulase negative staphylococcus this isolate does not demonstrate inducible clindamycin resistance in vitro. (jennifer) Cultured on the 2nd day of incubation: Levofloxacin <=0.12 Susceptible ug/mL coagulase negative staphylococcus this isolate does not demonstrate inducible clindamycin resistance in vitro. (jennifer) Cultured on the 2nd day of incubation: Oxacillin <=0.25 Susceptible ug/mL coagulase negative staphylococcus this isolate does not demonstrate inducible clindamycin resistance in vitro. (jennifer) Cultured on the 2nd day of incubation: Penicillin >0.5 Resistant ug/mL coagulase negative staphylococcus this isolate does not demonstrate inducible clindamycin resistance in vitro. (jennifer) Cultured on the 2nd day of incubation: Tetracycline 4.0 Susceptible ug/mL coagulase negative staphylococcus this isolate does not demonstrate inducible clindamycin resistance in vitro. (jennifer) Cultured on the 2nd day of incubation: Vancomycin 1.0 Susceptible ug/mL coagulase negative staphylococcus this isolate does not demonstrate inducible clindamycin resistance in vitro. (jennifer) Cultured on the 2nd day of incubation: Ciprofloxacin <=0.5 Susceptible ug/mL strain 2 coagulase negative staphylococcus this isolate does not demonstrate inducible clindamycin resistance in vitro. (jennifer) Cultured on the 2nd day of incubation: Clindamycin <=0.25 Susceptible ug/mL strain 2 coagulase negative staphylococcus this isolate does not demonstrate inducible clindamycin resistance in vitro. (jennifer) Cultured on the 2nd day of incubation: Erythromycin >=8 Resistant ug/mL strain 2 coagulase negative staphylococcus this isolate does not demonstrate inducible clindamycin resistance in vitro. (jennifer) Cultured on the 2nd day of incubation: Gentamicin <=0.5 Susceptible ug/mL strain 2 coagulase negative staphylococcus this isolate does not demonstrate inducible clindamycin resistance in vitro. (jennifer) Cultured on the 2nd day of incubation: Levofloxacin <=0.12 Susceptible ug/mL strain 2 coagulase negative staphylococcus this isolate does not demonstrate inducible clindamycin resistance in vitro. (jennifer) Cultured on the 2nd day of incubation: Oxacillin <=0.25 Susceptible ug/mL strain 2 coagulase negative staphylococcus this isolate does not demonstrate inducible clindamycin resistance in vitro. (jennifer) Cultured on the 2nd day of incubation: Penicillin >=0.5 Resistant ug/mL strain 2 coagulase negative staphylococcus this isolate does not demonstrate inducible clindamycin resistance in vitro. (jennifer) Cultured on the 2nd day of incubation: Tetracycline 2 Susceptible ug/mL strain 2 coagulase negative staphylococcus this isolate does not demonstrate inducible clindamycin resistance in vitro. (jennifer) Cultured on the 2nd day of incubation: Vancomycin 1 Susceptible ug/mL strain 2 coagulase negative staphylococcus this isolate does not demonstrate inducible clindamycin resistance in vitro. (jennifer) Eduardo Hoover MD LAB - MICRO GENERAL ORDERABL ES Performing Organization Address City/State/ZIP Code Phon e Number [facility] [address] [place] [address] [facility] MICROBIOLOGY [facility] documented in this encounter Visit Diagnoses Diagnosis Cellulitis - Primary Cellulitis and abscess of unspecified si te DM (diabetes mellitus) (H) Type II or unspecified type diabetes samuel litus without mention of complication, not stated as uncontrolled Arm pain Pain in limb Constipation Unspecified constipation Cellulitis and abscess Cellulitis and abscess of unspecified si te Cellulitis and abscess Cellulitis and abscess of unspecified si te DM (diabetes mellitus) (H) Type II or unspecified type diabetes samuel litus without mention of complication, not stated as uncontrolled documented in this encounter Admitting Diagnoses Diagnosis DM (diabetes mellitus) (H) Type II or unspecified type diabetes samuel litus without mention of complication, not stated as uncontrolled documented in this encounter Administered Medications Inactive Administered Medications - up to 3 most recent administrations Medication Order MAR Action Action Date Dose Rate Site 0.9 % sodium chloride New Bag by Other 10/26/2012 2:00 1,000 mLs 125 mL/hr IV solution Clinician AM CDT at 125 mL/hr, Intravenous, CONTINUOUS, Administer after the bolus., Starting on Mon10/26/12 at 0200, Until Mon10/28/12 at 1502 0.9 % sodium chloride IV New Bag 10/26/2012 6:01 AM CDT 1,000 mLs 100 mL/hr solution at 100 mL/hr, Intravenous, CONTINUOUS, Starting on Mon10/26/12 at 0515, Until Mon10/28/12 at 1502 New 10/26/2012 5:29 AM CDT 1,000 mLs 100 mL/hr cefTRIAXone (ROCEPHIN) 1 g vial to attach to New Bag 3 2:24 AM CDT 1 g IVPB STAT, 1 g, Intravenous, ONCE, On Mon10/26/12 at 0200, For 1 dose, Indications: Skin and Soft Tissue Infection clindamycin (CLEOCIN) IVPB 900 mg New 10/28/2012 11:20 AM CDT 900 mg 50 mL/hr Routine, 900 mg, Intravenous, EVERY 8 HOURS, First dose on Mon10/26/12 at 1215, Indications: Skin and Soft Tissue Infection New 10/28/2012 4:42 AM CDT 900 mg 50 mL/hr New 10/27/2012 9:00 PM CDT 900 mg 50 mL/hr diphenhydrAMINE (BENADRYL) capsule 25 mg Given 10/26/2012 7:27 PM CDT 25 mg 25 mg, Oral, EVERY 6 HOURS PRN, itching, Starting on Mon10/26/12 at 1206 Given 10/26/2012 12:49 PM CDT 25 mg diphenhydrAMINE (BENADRYL) capsule 25-50 mg Given 10/28/2012 10:50 AM CDT 50 mg 25-50 mg, Oral, EVERY 6 HOURS PRN, itching, Starting on Mon10/26/12 at 2107 Given 10/28/2012 4:02 AM CDT 50 mg Given 10/27/2012 8:06 PM CDT 50 mg HYDROmorphone (PF) (DILAUDID) injection Given 10/27/2012 5:11 PM CDT 0.5 mg 0.3-0.5 mg 0.3-0.5 mg, Intravenous, EVERY 2 HOURS PRN, severe pain (7-10), Starting on Mon10/26/12 at 0511, Hold while on CLOTHING ROOM SUPERVISOR. Given 10/27/2012 12:24 PM CDT 0.5 mg Given 10/27/2012 10:15 AM CDT 0.5 mg insulin aspart (NovoLOG) injection Given 10/26/2012 12:52 PM CDT 1 Units 1-10 Units, Subcutaneous, 3 TIMES DAILY BEFORE MEALS, First dose on Mon10/26/12 at 0730, Correction Scale - HIGH INSULIN RESISTANCE DOSING Do Not give Correction Insulin if Pre-Meal BG < 140. For Pre-Meal BG 140 - 164 give 1 unit. For Pre-Meal BG 165 - 189 give 2 units. For Pre-Meal BG 190 - 214 give 3 units. For Pre-Meal BG 215 - 239 give 4 units. For Pre-Meal BG 240 - 264 give 5 units. For Pre-Meal BG 265 - 289 give 6 units. For Pre-Meal BG 290 - 314 give 7 units. For Pre-Meal BG 315 - 339 give 8 units. For Pre-Meal BG 340 - 364 give 9 units. For Pre-Meal BG = or > 365 give 10 units To be given with prandial insulin, and based on pre-meal blood glucose. Notify MD if glucose > or = 350 mg/dL after administration of correction dose. If given at mealtime, must be administered 5 min before meal or immediately after. metFORMIN (GLUCOPHAGE) tablet 1,000 mg Given 10/28/2012 8:04 AM CDT 1,000 mg 1,000 mg, Oral, 2 TIMES DAILY WITH MEALS, First dose on Mon10/27/12 at 1115 Given 10/27/2012 6:22 PM CDT 500 mg Given 10/27/2012 5:10 PM CDT 500 mg morphine injection 2 mg Given 10/26/2012 2:25 AM CDT 2 mg 2 mg, Intravenous, ONCE PRN, moderate to severe pain, Starting on Mon10/26/12 at 0156, For 1 dose omeprazole (priLOSEC) capsule 20 mg Given 10/28/2012 8:04 AM CDT 20 mg 20 mg, Oral, EVERY MORNING BEFORE BREAKFAST, First dose on Mon10/27/12 at 0730 Given 10/27/2012 8:46 AM CDT 20 mg ondansetron (ZOFRAN) injection 4 mg Given 10/26/2012 2:25 AM CDT 4 mg 4 mg, Intravenous, ONCE PRN, nausea, vomiting, Administer over 2-5 Minutes, Starting on Mon10/26/12 at 0156, For 1 dose oxyCODONE (ROXICODONE) immediate release Given 10/27/2012 9:00 P M CDT 10 mg tablet 5-10 mg 5-10 mg, Oral, EVERY 3 HOURS PRN, moderate to severe pain, Starting on Mon10/26/12 at 0511 Given 10/26/2012 6:24 PM CDT 5 mg Given 10/26/2012 5:22 AM CDT 10 mg ranitidine (Zantac) injection 50 mg Given 10/27/2012 6:25 AM CDT 50 mg 50 mg, Intravenous, EVERY 8 HOURS, First dose on Mon10/26/12 at 1430 Given 10/26/2012 10:12 PM CDT 50 mg Given 10/26/2012 2:33 PM CDT 50 mg ranitidine (ZANTAC) tablet 150 mg Given 10/28/2012 8:04 AM CDT 150 mg 150 mg, Oral, 2 TIMES DAILY, First dose on Mon10/27/12 at 1400 Given 10/27/2012 9:01 PM CDT 150 mg Given 10/27/2012 2:19 PM CDT 150 mg senna-docusate (SENOKOT-S;PERICOLACE) Given 10/27/2012 2:18 PM C DT 2 tablets 8.6-50 MG per tablet 2 tablet 2 tablet, Oral, 2 TIMES DAILY, First dose (after last modification) on 10/27/13 at 1400 sodium chloride (PF) 0.9% PF flush 3 mL Given 10/28/2012 4:05 AM CDT 3 mLs 3 mL, Intravenous, EVERY 8 HOURS, First dose on Mon10/26/12 at 0200, And Q1H PRN, to lock peripheral IV dormant line. Given 10/27/2012 10:30 PM CDT 3 mLs Given 10/27/2012 4:21 AM CDT 3 mLs sodium chloride 0.9 % BOLUS New Bag 10/26/2012 2:25 AM CDT 1,000 m Ls 1000 mL/hr 1,000 mL Intravenous, 1,000 mL, ONCE, at 1,000 mL/hr, Administer over 1 Hours, On Mon10/26/12 at 0200, For 1 dose vancomycin (VANCOCIN) 1,500 mg New Bag 10/26/2012 9:34 AM CDT 1,500 mg 166.7 mL/hr in NaCl 0.9% 250 mL IVPB Routine, 1,500 mg, Intravenous, EVERY 8 HOURS, First dose (after last reorder) on Mon10/26/12 at 1000, Per Pharmacy Vancomycin Dosing Service. RN Note: please hang vancomycin dose on time. Notify Pharmacy of significant hang time changes. IF central line, doses below 2 g may be given over 1 hour, Indications: Skin and Soft Tissue Infection vancomycin 1000 mg in Dextrose 5% New Bag 10/26/2012 3:44 AM C DT 1,000 mg 200 mL/hr 200 mL STAT, 1,000 mg, Intravenous, ONCE, On Mon10/26/12 at 0315, For 1 dose, Indications: Skin and Soft Tissue Infection documented in this encounter Active and Recently Administered Medications Times are shown in CDT. Scheduled Medication Order 10/26/2012 10/27/2012 10/28/2012 cefTRIAXone (ROCEPHIN) 1 g vial to attach to IVPB (COM PLETED) 0224 (New Bag - Provider: Loni Santizo, CASA - Comment: scanner in room A1 not working.)0338 (Stopped - Provider: Joceline Shaver, RN) 1 g, Intravenous, ONCE, Mon10/26/12 at 0 200, For 1 dose, Indications: Skin and Soft Tissue Infection clindamycin (CLEOCIN) IVPB 900 mg (CANCELED) 1302 (New Bag - Provider: Monie Herrera, RN)2010 (New Bag - Provider: Kalee Cotter, RN) 0416 (New Bag - Provider: Loni Ugarte, RN - Comment: Pt experienced itching with last dose)1225 (New Bag - Provider: Graciela Lucas, RN)2100 (New Bag - Provider: Savanna Vega, RN) 0442 (New Bag - Provider: Nhung jasso, CASA)1120 (New Bag - Provider: Leann Salazar RN)1215 (Canceled Entry - Provider: Orders Generic Provider) 900 mg, Intravenous, EVERY 8 HOURS, Firs t dose on Mon10/26/12 at 1215, Indications: Skin and Soft Tissue Infection insulin aspart (NovoLOG) injection (CANCELED) 0815 (No t Given - Provider: Kaya Drake RN - Reason: Order parameters not met - Comment: blood sugar 123)1252 (Given - Provider: Monie Herrera RN) 0846 (Not Given - Provider: Graciela Lucas RN - Reason: Other - Comment: BS 112; no insulin given)1301 (Not Given - Provider: Graciela Lucas RN - Reason: Contraindicated - Comment: BS 131) 0730 (Not Given - Provider: Leann minaya RN - Reason: Contraindicated)1200 (Canceled Entry - Provider: Orders Generic Provider) 1-10 Units, Subcutaneous, 3 TIMES DAILY BEFORE MEALS, First dose on Mon10/26/12 at 0730, Correction Scale - HIGH INSULIN RESISTANCE DOSING Do Not give Correction Insulin if Pre-Meal BG < 140. For Pre 1825 (Not Given - Provider: Kalee Cotter RN - Reason: Order parameters not met - Comment: 120) 1703 (Not Given - Provider: Lyla Layne RN - Reason: Other - Comment: BS: 110) -Meal BG 140 - 164 give 1 unit. For Pre- Meal BG 165 - 189 give 2 units. For Pre- Meal BG 190 - 214 give 3 units. For Pre-Meal BG 215 - 239 give 4 units. For Pre- Meal BG 240 - 264 give 5 units. For Pre-Me al BG 265 - 289 give 6 units. For Pre-Me al BG 290 - 314 give 7 units. For Pre- Meal BG 315 - 339 give 8 units. For Pre-Meal BG 340 - 364 give 9 units. For Pre- Meal BG = or > 365 give 10 units To be gi landon with prandial insulin, and based on pre-meal blood glucose. Notify MD if glucose > or = 350 mg/dL after administration of correction dose. If given at mealtime, must be administered 5 min before meal or immediately after. metFORMIN (GLUCOPHAGE) tablet 1,000 mg (CANCELED) 1300 (Given - Provider: Graciela Lucas RN)1710 (Given - Provider: Lyla Layne RN)1822 (Given - Provider: Rebeka Cartagena LPN) 0804 (Given - Provider: Leann Salazar RN) 1,000 mg, Oral, 2 TIMES DAILY WITH MEALS, First dose on Sat 10/27 at 1115 omeprazole (priLOSEC) capsule 20 mg (CANCELED) 0846 (Given - Provider: Graciela Lucas RN) 0804 (Given - Provider: Leann Salazar RN) 20 mg, Oral, EVERY MORNING BEFORE BREAKFAST, First dose on S at 10/27/12 at 0730 ranitidine (Zantac) injection 50 mg (CANCELED) 1433 (G iven - Provider: Kaya Drake RN)2212 (Given - Provider: Kalee Cotter RN) 0625 (Given - Provider: Loni Ugarte RN)1430 (Canceled Entry - Provider: Joseph Cobian [facility]) 50 mg, Intravenous, EVERY 8 HOURS, First dose on Mon10/26/12 at 1430 ranitidine (ZANTAC) tablet 150 mg (CANCELED) 1419 (Given - Provider: Graciela Lucas RN)2101 (Given - Provider: Savanna Vega RN) 0804 (Given - Provider: Leann Salazar RN) 150 mg, Oral, 2 TIMES DAILY, First dose on 10/27/12 at 1400 senna-docusate (SENOKOT-S;PERICOLACE) 8.6-50 MG per tablet 2 tablet (CANCELED) 1418 (Given - Provider: Graciela Lucas, RN)2126 (Not Given - Provider: Savanna Vega RN - Reason: Patient/family refused - Comment: 2 bm's this afternoon) 1051 (Not Given - Provider: Leann Salazar RN - Reason: Other) 2 tablet, Oral, 2 TIMES DAILY, First dose on Mon10/27/12 at 1400 sodium chloride (PF) 0.9% PF flush 3 mL (CANCELED) 020 0 (Not Given - Provider: Nhung Kerr RN - Reason: IV Infusing)0933 (Not Given - Provider: Kaya Drake, CASA - Reason: IV Infusing)1800 (Not Given - Provider: Kalee Cotter RN - Reason: Other) 0421 (Given - Provider: Loni Ugarte , CASA)1241 (Not Given - Provider: Graciela Lucas RN - Reason: IV Infusing)2230 (Given - Provider: Savanna Vega RN) 0405 (Given - Provider: Nhung martin RN)1215 (Canceled Entry - Provider: Orders Generic Provider) 3 mL, Intravenous, EVERY 8 HOURS, First dose on Mon10/26/12 at 0200, And Q1H PRN, to lock peripheral IV dormant line. sodium chloride 0.9 % BOLUS 1,000 mL (COMPLETED) 0225 (New Bag - Provider: Loni Santizo, CASA)0343 (ED Infusing on Admission/transfer - Provider: Joceline Shaver, RN) Intravenous, 1,000 mL, ONCE, at 1,000 mL /hr, for 1 Hours, Mon10/26/12 at 0200, For 1 dose vancomycin (VANCOCIN) 1,500 mg in NaCl 0.9% 250 mL IVP B (CANCELED) 0934 (New Bag - Provider: Kaya Drake, CASA) 1,500 mg, Intravenous, EVERY 8 HOURS, Fi rst dose on Mon10/26/12 at 1000, Per Pharmacy Vancomycin Dosing Service. RN Note: please hang vancomycin dose on time. Notify Pharmacy of significant hang time ch anika. IF central line, doses below 2 g may be given over 1 hour, Indications: Skin and Soft Tissue Infection vancomycin 1000 mg in Dextrose 5% 200 mL (COMPLETED) 0 344 (New Bag - Provider: Joceline Shaver RN - Comment: scanner wuld not read pt ID corretly, ID verified with pt and ID band that it was correct. Unable to get scanner to reognize barcode on Vanco. verified correct medication) 1,000 mg, Intravenous, ONCE, Mon10/26/12 at 0315, For 1 dose, Indications: Skin and Soft Tissue Infection 0354 (ED Infusing on Admission/transfer - Provider: Joceline Shaver RN)0450 (Stopped - Provider: Joceline Shaver RN) Continuous Medication Order 10/26/2012 10/27/2012 10/28/2012 0.9 % sodium chloride IV solution (CANCELED) 0200 (New Bag by Other Clinician - Provider: Kaya Drake, CASA) at 125 mL/hr, Intravenous, CONTINUOUS, Administer after the bolu s. 0.9 % sodium chloride IV solution (CANCELED) 0529 (New Bag - Provider: Nhung Kerr, CASA)0601 (New Bag - Provider: Nhung Kerr RN)1417 (Stopped - Provider: Kaya Drake, CASA) at 100 mL/hr, Intravenous, CONTINUOUS PRN Medication Order 10/26/2012 10/27/2012 10/28/2012 diphenhydrAMINE (BENADRYL) capsule 25 mg (CANCELED) 12 49 (Given - Provider: Monie Herrera, CASA)1927 (Given - Provider: Kalee Cotter, CASA) 25 mg, Oral, EVERY 6 HOURS PRN, itching, Starting Mon10/26/12 at 1206 diphenhydrAMINE (BENADRYL) capsule 25-50 mg (CANCELED) 2122 (Given - Provider: Kalee Cotter, CASA) 0347 (Given - Provider: Loni Ugarte , CASA)1224 (Given - Provider: Graciela Lucas, CASA)2005 (Given - Provider: Savanna Vega RN) 0402 (Given - Provider: Nhung Kerr, CASA)1050 (Given - Provider: Leann Salazar, CASA) 25-50 mg, Oral, EVERY 6 HOURS PRN, itching, Starting Mon10/26/12 at 2107 HYDROmorphone (PF) (DILAUDID) injection 0.3-0.5 mg (CA NCELED) 0522 (Given - Provider: Nhung Kerr, CASA)2016 (Given - Provider: Kalee Cotter, CASA) 1015 (Given - Provider: Graciela Lucas, RN)1224 (Given - Provider: Graciela Lucas, RN)1711 (Given - Provider: Lyla Layne, RN) 0.3-0.5 mg, Intravenous, EVERY 2 HOURS P RN, Starting 10/26/12 at 0511, Until 10/28/12 at 1502, severe pain, Hold while on CLOTHING ROOM SUPERVISOR. magnesium hydroxide (MILK OF MAGNESIA) suspension 30 mL 30 mL, Oral, DAILY PRN, constipation, Starting Sat 10/13 09/24 at 1334, Shake well. morphine injection 2 mg (COMPLETED) 224 (Given - Prov ider: Loni Santizo, CASA) 2 mg, Intravenous, ONCE PRN, moderate to severe pain, Starting 10/26/12 at 0156, For 1 dose ondansetron (ZOFRAN) injection 4 mg (COMPLETED) 224 ( Given - Provider: Loni Santizo, CASA) 4 mg, Intravenous, ONCE PRN, nausea, vom iting, for 2 Minutes, Starting 10/26/12 at 0156, For 1 dose oxyCODONE (ROXICODONE) immediate release tablet 5-10 m g (CANCELED) 05 (Given - Provider: Nhung Kerr, CASA)1824 (Given - Provider: Kalee Cotter, CASA) 2100 (Given - Provider: Savanna Vega RN) 5-10 mg, Oral, EVERY 3 HOURS PRN, modera te to severe pain, Starting 10/26/12 at 0511 documented in this encounter Care Teams [employer] Relationship Specialty Start Date End Date No Ref-Primary, Physician PCP - General 10/26/12 10/30/12 documented as of this encounter
== END 2022-04-14 09:10 | disposition home or self-care (01) ==
LOC: NM 09:10
PROVIDERS: PCP Family Medicine; Visit Provider Internal Medicine Gastroenterology
DX: R11.2 Nausea with vomiting, unspecified (principal); R14.0 Abdominal distension (gaseous); R19.7 Diarrhea, unspecified
CPT/HCPCS: 78264; A9541

== ENCOUNTER 2022-06-26 07:31 | Outpatient (CLI) | payer MEDICAID, SELFPAY | END 2022-06-26 07:32 | disposition home or self-care (01) | LOC: AMB 06-27 12:47 | PROVIDERS: PCP Family Medicine; Visit Provider Family Medicine | DX: R56.9 Unspecified convulsions (principal); R41.82 Altered mental status, unspecified | CPT/HCPCS: A0425; A0427 ==

== ENCOUNTER 2022-06-26 08:00 | Emergency (ER) | payer MEDICAID, SELFPAY ==
[2022-06-26] VITALS (20 sets, daily range): BP systolic 100–130; BP diastolic 59–74; PULSE 92–122; RESP 18; TEMP 36.5; O2SAT 90–99
--- NOTE | 2022-06-26 08:30 | CRLHL7_ITS ---
For Patients: As a result of the Century Cures Act, medical imaging exams and procedure reports are released immediately into your electronic medical record. You may view this report before your referring provider. If you have questions, please contact your health care provider. HISTORY: Seizure. TECHNIQUE: Noncontrast head CT. COMPARISON: 07/09/2021. FINDINGS: There is no acute intracranial hemorrhage or acute ischemic infarct. No mass effect or midline shift. No hydrocephalus. No extra-axial collection or hematoma. No acute loss of pena-white differentiation. Mastoid air cells on the left are clear. The right-sided mastoid air cells are not pneumatized. Mild mucosal thickening involving maxillary sinuses. No acute sinusitis. No acute skull fracture. IMPRESSION: No acute intracranial disease. Dictated by Nahun Elizabeth MD @ 06/26/2022 9:07:19 AM Please note that all CT scans at this facility use dose modulation, iterative reconstruction, and/or weight-based dosing when appropriate to reduce radiation dose to as low as reasonably achievable. Dictated by: Nahun Elizabeth MD @ 06/26/2022 09:07:26 (Electronically Signed)
--- NOTE | 2022-06-26 08:34 | ED.SEIZURE ---
HPI - Seizure General Chief Complaint: Seizure Stated Complaint: Seizure Time Seen by Provider: 06/26/22 08:23 History of Present Illness HPI Narrative: This 47-year-old male comes in by ambulance because of a seizure that occurred prior to arrival. His woke up as he was having a tonic clonic seizure in bed. He does not remember any of this. He remembers waking up to a bunch of people in the room. He apparently had a postictal state. He does not have any prior history of seizure. He does have history of pancreatic insufficiency and recurrent and chronic pancreatitis. He has diabetes related to this. Currently he reports some generalized aches and pains. He feels tired. He does have Ativan prescribed and takes this generally once a day. He does not report any excessive use or sudden cessation of Ativan that may predispose him to a rebound seizure. Related Data Home Medications Medication Instructions Recorded Confirmed buspirone 10 mg tablet 10 mg PO TID 12/09/21 02/20/22 glipizide 10 mg tablet, extended 10 mg PO BIDWM 12/09/21 02/20/22 release 24 hr insulin degludec 100 unit/mL (3 160 unit subcut QPM 12/09/21 02/20/22 mL) subcutaneous pen (Tresiba FlexTouch U-100 insulin) lipase 37,000-protease 2 cap PO TIDWM 12/09/21 02/20/22 97,300-amylase 149,900 unit capsule,delayed rel (Pancreaze) lisinopril 10 mg tablet 10 mg PO DAILY 12/09/21 02/20/22 lorazepam 1 mg tablet 1 mg PO TID PRN 12/09/21 02/20/22 ondansetron 4 mg disintegrating 4 mg PO TID PRN 12/09/21 02/20/22 tablet amitriptyline 10 mg tablet mg 12/21/21 02/20/22 glucagon 1 mg solution for mg 12/21/21 02/20/22 injection (Glucagon Emergency Kit) ibuprofen 12/21/21 02/20/22 omeprazole 40 mg capsule,delayed mg 12/21/21 02/20/22 release pyridoxine (vitamin B6) 25 mg mg 12/21/21 02/20/22 tablet (Vitamin B-6) Previous Rx's Medication Instructions Recorded cephalexin 500 mg tablet 500 mg PO QID #28 tabs 12/21/21 acetaminophen 300 mg-codeine 15 mg 1 tab PO Q8H PRN pain #20 tabs 02/20/22 tablet Allergies Allergy/AdvReac Type Severity Reaction Status Date / Time clindamycin Allergy Verified 02/20/22 10:16 diphenhydramine Allergy Verified 02/20/22 10:16 dulaglutide Allergy Verified 02/20/22 10:16 erythromycin base Allergy Verified 02/20/22 10:16 Penicillins Allergy Verified 02/20/22 10:16 vancomycin Allergy Verified 02/20/22 10:16 bactrim Allergy Uncoded 02/20/22 10:16 Review of Systems Status of ROS: Reports: 10 or more systems reviewed and unremarkable except as noted in History and below Narrative: Constitutional: No fevers, no weight gain or loss. Eyes: No discharge. No vision changes. HENT: No congestion, no sore throat, no ear pain. Cardiovascular: No chest pain, no palpitations. Respiratory: No shortness of breath, no wheezes, no cough. Gastrointestinal: No vomiting, no diarrhea. Chronic abdominal pain related to chronic pancreatitis. His GI physician is considering the possibility of Crohn's disease. Genitourinary: No dysuria, no hematuria. Musculoskeletal: Normal range of motion. Generalized aches and pains. Skin: No rashes, no pruritis. Neurological: No dizziness, weakness, sensory change, speech change. Endo/Heme/Allergies: No bruising or bleeding. No polydipsia. Pysch: no suicidality, no anxiety, no insomnia. All other systems reviewed and are negative. [facility] Medical History (Updated 06/26/22 @ 11:09 by Isrrael Ramires MD) Anxiety Chronic pancreatitis Diabetes mellitus type 2 in obese Obesity Pancreatic insufficiency Family History (Updated 12/09/21 @ 14:23 by Ramirez Chinchilla MD) Mother Crohn's disease Autoimmune disease of liver Cirrhosis of liver Father Colon cancer Social History (Updated 12/09/21 @ 14:24 by Ramirez Chinchilla MD) Narrative: He lives in [place] with his and 18-year-old daughter. 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 He has been temporarily on disability. He does not smoke, drink alcohol or use recreational drugs. Code status is full. Smoking Status: Never smoker Do you use any of these nicotine containing products: None Second hand tobacco smoke exposure: No How often do you have a drink containing alcohol: never AUDIT-C Alcohol total score: 0 Non-prescribed substance use: denies use service: No Exam Narrative: Exam Narrative: Constitutional: Well-developed, well-nourished, no acute distress. HEENT: Normocephalic, atraumatic. Neck: Normal range of motion. Nontender. Supple. Heart: Regular. No murmurs. Normal rate. Intact distal pulses. Lungs: Clear to auscultation. No chest discomfort. No wheezes, rhonchi, or rales. Abdomen: Normal bowel sounds. Diffuse tenderness. No rebound tenderness. Genitalia: Deferred. Back: No midline tenderness. Normal range of motion. Extremities: Normal range of motion. No injury. Skin: Intact. No rash. Warm. No erythema or pallor. Neurologic: No altered sensation. No weakness. Alert and oriented. Psychiatric: No suicidality. No anxiety or depression. No insomnia. Nursing notes and vitals signs are reviewed. Const: Vital Signs, click to edit/add: Vital Signs - 24 hr 06/26/22 08:09 06/26/22 08:55 06/26/22 08:55 Temperature 97.7 F Pulse Rate Pulse Rate [Right Pulse Oximeter] 122 H Respiratory Rate 18 Blood Pressure Blood Pressure [Ri ght Upper Arm] 130/69 Pulse Oximetry 91 93 93 Oxygen Delivery Me thod Room Air Nasal Cannula Oxygen Flow Rate 3 06/26/22 08:54 06/26/22 09:00 06/26/22 09:01 Temperature Pulse Rate 105 H 106 H 110 H Pulse Rate [Right Pulse Oximeter] Respiratory Rate Blood Pressure 100/68 Blood Pressure [Ri ght Upper Arm] Pulse Oximetry 95 97 96 Oxygen Delivery Me thod Oxygen Flow Rate 06/26/22 09:20 06/26/22 09:22 06/26/22 09:30 Temperature Pulse Rate 106 H 98 Pulse Rate [Right Pulse Oximeter] Respiratory Rate Blood Pressure 103/72 Blood Pressure [Ri ght Upper Arm] Pulse Oximetry 93 97 Oxygen Delivery Me thod Oxygen Flow Rate 06/26/22 09:40 06/26/22 09:41 06/26/22 10:00 Temperature Pulse Rate 92 99 97 Pulse Rate [Right Pulse Oximeter] Respiratory Rate Blood Pressure 104/68 Blood Pressure [Ri ght Upper Arm] Pulse Oximetry 99 95 94 Oxygen Delivery Me thod Oxygen Flow Rate 06/26/22 10:02 06/26/22 10:20 06/26/22 10:21 Temperature Pulse Rate 98 93 94 Pulse Rate [Right Pulse Oximeter] Respiratory Rate Blood Pressure 100/59 L 107/65 Blood Pressure [Ri ght Upper Arm] Pulse Oximetry 93 93 93 Oxygen Delivery Me thod Oxygen Flow Rate 06/26/22 10:40 06/26/22 10:41 Temperature Pulse Rate 101 H 100 Pulse Rate [Right Pulse Oximeter] Respiratory Rate Blood Pressure 109/69 Blood Pressure [Ri ght Upper Arm] Pulse Oximetry 94 93 Oxygen Delivery Me thod Oxygen Flow Rate Course Vital Signs Vital signs: Initial Vital Signs Temperature 97.7 F 06/26/22 08:09 Temperature Source Temporal Artery Scan 06/26/22 08:09 Pulse Rate 122 H 06/26/22 08:09 Respiratory Rate 18 06/26/22 08:09 Blood Pressure 130/69 06/26/22 08:09 Blood Pressure Mean 89 06/26/22 08:09 Blood Pressure Position Sitting 06/26/22 08:09 Pulse Oximetry 91 06/26/22 08:09 Oxygen Delivery Method 06/26/22 08:09 Vital Signs Temperature 97.7 F 06/26/22 08:09 Pulse Rate 122 H 06/26/22 08:09 Respiratory Rate 18 06/26/22 08:09 Blood Pressure 130/69 06/26/22 08:09 Pulse Oximetry 91 06/26/22 08:09 Oxygen Delivery Method 06/26/22 08:09 Temperature 97.7 F 06/26/22 08:09 Pulse Rate 100 06/26/22 10:41 Respiratory Rate 18 06/26/22 08:09 Blood Pressure 109/69 06/26/22 10:41 Pulse Oximetry 93 06/26/22 10:41 Oxygen Delivery Method 06/26/22 08:55 Oxygen Flow Rate 3 06/26/22 08:55 MDM - Seizure MDM Narrative Medical decision making narrative: This 47-year-old male comes in by ambulance because of a tonic-clonic seizure that occurred prior to arrival. This is his 1st episode of a seizure. His was with him in bed when this occurred in his sleep. She woke up to seizure activity after which there was typical postictal state. The patient denies any use of alcohol though he does have a remote history of alcohol abuse. His also confirms this that he does not take any alcohol. He does take Ativan most every day for anxiety. He is prescribed Ativan up to 3 times a day as needed. He states that he takes it usually once a day. There could be a rebound effect from this medicine if you are on larger doses and suddenly stopped. It seems more likely that it had a protective affect for him if there is an underlying seizure disorder. Head CT and labs returned with reassuring results. His white count is slightly elevated. His blood alcohol level is negative. Urine drug screen is positive for cannabis. During his stay here was noted that he had oximetry at around 88-89% on room air. He was placed on a few L of oxygen which brought it up to 95%. Chest x-ray then was ordered and shows no acute findings. I turned off the oxygen and observed O2 sats in the 95% range on room air. The patient does have a cough and there are others in his family who have some upper respiratory symptoms also. The patient did receive an IV dose of Ativan 1 mg here. He is okay to be discharged home. He does have a follow-up appointment with his primary physician tomorrow. I stated that he should take Ativan daily or even twice daily as this can provide some seizure prevention. He should follow-up with his primary physician or consider a clinic appointment with Neurology to further evaluate and treat this seizure event. Lab Data Labs: Lab Results 06/26/22 06/26/22 06/26/22 Range/Units 09:08 09:08 09:08 WBC 12.54 H (4.50-11.00) K/uL RBC 5.56 (4.30-5.90) m/uL Hgb 16.2 (13.5-17.5) gm/dL Hct 47.3 (37.0-53.0) % MCV 85 (80-100) fL MCH 29 (26-34) pg MCHC 34 (32-36) gm/dL RDW Coeff of Usman 12.4 (11.5-15.5) % Plt Count 180 (140-440) K/uL Neut % (Auto) 88.6 H (42.0-72.0) % Lymph % (Auto) 6.0 L (20-44) % [place] % (Auto) 4.5 (0.0-11.0) % Eos % (Auto) 0.3 (0.0-7.0) % Baso % (Auto) 0.2 (0.0-3.0) % Neut # (Auto) 11.10 H (1.7-7.0) K/uL Lymph # (Auto) 0.80 L (0.90-2.90) K/uL [place] # (Auto) 0.60 (0.00-0.90) K/UL Eos # (Auto) 0.00 (0.00-0.50) K/uL Baso # (Auto) 0.00 (0.00-0.30) K/uL Sodium 137 (135-149) mmol/L Potassium 5.1 (3.6-5.1) mmol/L Chloride 105 (96-114) mmol/L Carbon Dioxide 24 (20-32) mmol/L BUN 16 (5-24) mg/dL Creatinine 0.9 (0.5-1.5) mg/dL Estimated GFR 107 ml/min Glucose 283 H (60-115) mg/dL Calcium 9.1 (8.4-10.6) mg/dL Urine Color (Yellow) Urine Appearance (Clear) Urine pH (5.0-8.5) Ur Specific [place] (1.000-1.030) Urine Protein (Negative) Urine Glucose (UA) (Negative) Urine Ketones (Negative) Urine Blood (Negative) Urine Nitrite (Negative) Urine Bilirubin (Negative) Urine Urobilinogen (0.2-1.0) Ur Leukocyte Esterase (Negative) Urine RBC (0-2) Urine WBC (0-5) Ur Squamous Epith Cells (None-Few) Urine Bacteria (None) Urine Opiates Screen (Negative) Ur Oxycodone Screen (Negative) Urine Methadone Screen (Negative) Ur Propoxyphene Screen (Negative) Ur Barbiturates Screen (Negative) U Tricyclic Antidepress (Negative) Ur Phencyclidine Scrn (Negative) Ur Amphetamines Screen (Negative) U Methamphetamines Scrn (Negative) U Benzodiazepines Scrn (Negative) Urine Cocaine Screen (Negative) U Marijuana (THC) Screen (Negative) Ur Drug Screen Comment Ethyl Alcohol < 0.01 L (0.01-0.03) % 06/26/22 06/26/22 Range/Units 09:40 09:40 WBC (4.50-11.00) K/uL RBC (4.30-5.90) m/uL Hgb (13.5-17.5) gm/dL Hct (37.0-53.0) % MCV (80-100) fL MCH (26-34) pg MCHC (32-36) gm/dL RDW Coeff of Usman (11.5-15.5) % Plt Count (140-440) K/uL Neut % (Auto) (42.0-72.0) % Lymph % (Auto) (20-44) % [place] % (Auto) (0.0-11.0) % Eos % (Auto) (0.0-7.0) % Baso % (Auto) (0.0-3.0) % Neut # (Auto) (1.7-7.0) K/uL Lymph # (Auto) (0.90-2.90) K/uL [place] # (Auto) (0.00-0.90) K/UL Eos # (Auto) (0.00-0.50) K/uL Baso # (Auto) (0.00-0.30) K/uL Sodium (135-149) mmol/L Potassium (3.6-5.1) mmol/L Chloride (96-114) mmol/L Carbon Dioxide (20-32) mmol/L BUN (5-24) mg/dL Creatinine (0.5-1.5) mg/dL Estimated GFR ml/min Glucose (60-115) mg/dL Calcium (8.4-10.6) mg/dL Urine Color Yellow (Yellow) Urine Appearance Clear (Clear) Urine pH 5.5 (5.0-8.5) Ur Specific [place] >= 1.030 (1.000-1.030) Urine Protein 2+ A (Negative) Urine Glucose (UA) 2+ A (Negative) Urine Ketones Negative (Negative) Urine Blood 1+ A (Negative) Urine Nitrite Negative (Negative) Urine Bilirubin Negative (Negative) Urine Urobilinogen 0.2 (0.2-1.0) Ur Leukocyte Esterase Negative (Negative) Urine RBC 0-2 (0-2) Urine WBC 0-2 (0-5) Ur Squamous Epith Cells None (None-Few) Urine Bacteria None (None) Urine Opiates Screen Negative (Negative) Ur Oxycodone Screen Negative (Negative) Urine Methadone Screen Negative (Negative) Ur Propoxyphene Screen Negative (Negative) Ur Barbiturates Screen Negative (Negative) U Tricyclic Antidepress Negative (Negative) Ur Phencyclidine Scrn Negative (Negative) Ur Amphetamines Screen Negative (Negative) U Methamphetamines Scrn Negative (Negative) U Benzodiazepines Scrn Negative (Negative) Urine Cocaine Screen Negative (Negative) U Marijuana (THC) Screen POSITIVE A* (Negative) Ur Drug Screen Comment See Note Ethyl Alcohol (0.01-0.03) % Imaging Data Chest x-ray: Radiologist's impression: No acute or significant findings. CT scan - head: Radiologist's impression: No intracranial abnormalities. Discharge Plan Discharge Clinical Impression: Generalized seizure Patient Disposition: Home w/ Parent or Adult Condition: Improved Additional Instructions: Take Ativan once or twice daily as prescribed. Follow up with primary physician tomorrow as scheduled. Consider a clinic appointment with neurologist for further evaluation and treatment. Return if recurrent symptoms happen. Prescriptions: No Action acetaminophen-codeine 300-15 mg tablet 1 tab PO Q8H PRN (Reason: pain) Qty: 20 0RF buspirone 10 mg tablet 10 mg PO TID Label Comments: TAKE 1 TABLET BY MOUTH THREE TIMES DAILY Pancreaze 37,000-97,300- 149,900 unit capsule,delayed release(DR/EC) 2 cap PO TIDWM Label Comments: TAKE 2 CAPSULES BY MOUTH THREE TIMES DAILY WITH MEALS & 1 CAPSULE WITH EACH SNACK SWALLOWING WHOLE. DO NOT CRUSH, CHEW, AND/OR DIVIDE lisinopril 10 mg tablet 10 mg PO DAILY Label Comments: TAKE 1 TABLET BY MOUTH ONCE DAILY Tresiba FlexTouch U-100 100 unit/mL (3 mL) insulin pen 160 unit SUBCUT QPM lorazepam 1 mg tablet 1 mg PO TID PRN glipizide 10 mg tablet extended release 24hr 10 mg PO BIDWM Label Comments: TAKE 1 TABLET BY MOUTH TWICE DAILY BEFORE MEALS ondansetron 4 mg tablet,disintegrating 4 mg PO TID PRN Label Comments: DISSOLVE 1 TABLET IN MOUTH EVERY 8 HOURS NEEDED FOR NAUSEA AND VOMITING pyridoxine (vitamin B6) [Vitamin B-6] 25 mg tablet Label Comments: TAKE 1 TABLET BY MOUTH THREE TIMES DAILY omeprazole 40 mg capsule,delayed release(DR/EC) amitriptyline 10 mg tablet Label Comments: TAKE 1 TABLET BY MOUTH AT BEDTIME Glucagon Emergency Kit (human) 1 mg recon soln Label Comments: INJECT 1MG DIRECTED EACH TIME IF NEEDED (SYMPTOMATIC HYPOGLYCEMIA LESS THAN 50 AND NOT RESPONDING TO ORAL GLUCOSE ibuprofen cephalexin 500 mg tablet 500 mg PO QID Qty: 28 0RF Follow Up/Referrals: Gallo Mejia MD [Primary Care Provider] - Stand Alone Forms: [facility] Info Instructions
[2022-06-26 09:16] LABS: Basophils Percent Auto 0.2 % (0.0-3.0); Eosinophils Percent Auto 0.3 % (0.0-7.0); Hematocrit 47.3 % (37.0-53.0); Hemoglobin* 16.2 gm/dL (13.5-17.5); Immature Granulocytes Pct Auto 0.4 %; Mean Corpuscular HGB Conc 34 gm/dL (32-36); Mean Corpuscular Hemoglobin 29 pg (26-34); Mean Corpuscular Volume 85 fL (80-100); Monocytes Percent Auto 4.5 % (0.0-11.0); Neutrophils Percent Auto 88.6 % (42.0-72.0); Platelet Count* 180 K/uL (140-440); RDW Coefficient of Variation % 12.4 % (11.5-15.5); Red Blood Count 5.56 m/uL (4.30-5.90); White Blood Count* 12.54 K/uL (4.50-11.00)
--- NOTE | 2022-06-26 09:19 | CRLHL7_ITS ---
For Patients: As a result of the Century Cures Act, medical imaging exams and procedure reports are released immediately into your electronic medical record. You may view this report before your referring provider. If you have questions, please contact your health care provider. INDICATION: Hypoxia TECHNIQUE: Chest 1 views. COMPARISON: 07/09/2021 FINDINGS: Cardiovascular and mediastinum: Heart size and vasculature are normal in caliber and appearance. Lungs and pleural spaces: Lungs are clear. No sign of infiltrate. No sign of pleural effusion. No pneumothorax. Bones and soft tissues: No significant findings. IMPRESSION: No acute or significant findings. Dictated by Phillip Dahl MD @ 06/26/2022 10:02:15 AM (Electronically Signed)
[2022-06-26 09:20] LABS: Slide Review Reflex No
[2022-06-26 09:28] LABS: Chloride* 105 mmol/L (96-114); Sodium* 137 mmol/L (135-149)
[2022-06-26 09:29] LABS: Potassium* 5.1 mmol/L (3.6-5.1)
[2022-06-26 09:31] LABS: Carbon Dioxide* 24 mmol/L (20-32); Creatinine* 0.9 mg/dL (0.5-1.5); Estimated Glomerular Filt Rate 107 ml/min
[2022-06-26 09:32] LABS: Blood Urea Nitrogen* 16 mg/dL (5-24); Calcium* 9.1 mg/dL (8.4-10.6); Glucose* 283 mg/dL (60-115)
[2022-06-26] MEDS: 0.9 % SODIUM CHLORIDE 1000 ml 1,000 ML IV (09:50)
[2022-06-26] MEDS: LORazepam 2 MG/ML inj 1 MG IV (09:51)
[2022-06-26 10:00] LABS: Appearance Urine Clear (Clear); Bilirubin Urine Negative (Negative); Blood Urine 1+ (Negative); Color Urine Yellow (Yellow); Glucose Urine 2+ (Negative); Ketones Urine Negative (Negative); Leukocyte Esterase Urine Negative (Negative); Nitrite Urine Negative (Negative); Protein Urine 2+ (Negative); Specific Gravity Urine >= 1.030 (1.000-1.030); Urobilinogen Urine 0.2 (0.2-1.0); pH Urine 5.5 (5.0-8.5)
[2022-06-26 10:08] LABS: RBC Urine 0-2 (0-2); WBC Urine 0-2 (0-5)
[2022-06-26 10:11] LABS: Amphetamine Screen Urine Negative (Negative); Barbiturate Screen Urine Negative (Negative); Benzodiazepines Screen Urine Negative (Negative); Cocaine Screen Urine Negative (Negative); Methadone Screen Urine Negative (Negative); Methamphetamines Screen Urine Negative (Negative); Opiate Screen Urine Negative (Negative); Oxycodone Screen Urine Negative (Negative); Phencyclidine Screen Urine Negative (Negative); Tricyclic Antidepressant Urine Negative (Negative)
[2022-06-26 10:12] LABS: Ethanol* < 0.01 % (0.01-0.03)
[2022-06-26 10:13] LABS: Cannabinoid Screen Urine POSITIVE (Negative)
== END 2022-06-26 11:26 | disposition home or self-care (01) ==
PROVIDERS: Emergency Provider Emergency Medicine Emergency Medical Services; PCP Family Medicine
DX: G40.409 Other generalized epilepsy and epileptic syndromes, not intractable, without status epilepticus (principal)
CPT/HCPCS: 36415; 70450; 71045; 80048; 80306; 81001; 82077; 85025; 94761; 96374; 99284; 99285; J2060; J7030

== ENCOUNTER 2022-09-04 22:08 | Outpatient (CLI) | payer BC, SELFPAY | END 2022-09-04 22:09 | disposition home or self-care (01) | LOC: AMB 09-05 01:57 | PROVIDERS: PCP Family Medicine; Visit Provider Family Medicine | DX: G40.409 Other generalized epilepsy and epileptic syndromes, not intractable, without status epilepticus (principal) | CPT/HCPCS: A0425; A0427 ==

== ENCOUNTER 2022-09-04 22:37 | Emergency (ER) | payer BC, SELFPAY ==
[2022-09-04] VITALS (11 sets, daily range): BP systolic 109–129; BP diastolic 70–86; PULSE 90–104; RESP 18; TEMP 36.3; O2SAT 91–99
--- NOTE | 2022-09-04 23:04 | ED.GENADULT ---
HPI - General Adult General Time Seen by Provider: 23:04 Date Seen: 09/04/22 Chief complaint: Seizure Stated complaint: Seizure Time Seen by Provider: 09/04/22 22:49 Source: patient Mode of arrival: EMS Limitations: physical limitation History of Present Illness HPI narrative: Patient is a 47-year-old male that has been diagnosed by Neurology with he describes ?pseudoseizures ?. 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 He has had 3 seizures in the past. He is on disability for: Issues and pancreatic insufficiency. The patient has type 2 diabetes. The patient also has had about 3 seizures in his life he reports he had 1 tonight his reports he was shaking and this lasted a couple minutes he had no long postictal phase family attempt to give him Ativan but apparently did not. He has had no pain or injury no neck pain no back pain no headache no visual problem. Related Data Home Medications Medication Instructions Recorded Confirmed buspirone 10 mg tablet 10 mg PO TID 12/09/21 02/20/22 glipizide 10 mg tablet, extended 10 mg PO BIDWM 12/09/21 02/20/22 release 24 hr insulin degludec 100 unit/mL (3 160 unit subcut QPM 12/09/21 02/20/22 mL) subcutaneous pen (Tresiba FlexTouch U-100 insulin) lipase 37,000-protease 2 cap PO TIDWM 12/09/21 02/20/22 97,300-amylase 149,900 unit capsule,delayed rel (Pancreaze) lisinopril 10 mg tablet 10 mg PO DAILY 12/09/21 02/20/22 lorazepam 1 mg tablet 1 mg PO TID PRN 12/09/21 02/20/22 ondansetron 4 mg disintegrating 4 mg PO TID PRN 12/09/21 02/20/22 tablet amitriptyline 10 mg tablet mg 12/21/21 02/20/22 glucagon 1 mg solution for mg 12/21/21 02/20/22 injection (Glucagon Emergency Kit) ibuprofen 12/21/21 02/20/22 omeprazole 40 mg capsule,delayed mg 12/21/21 02/20/22 release pyridoxine (vitamin B6) 25 mg mg 12/21/21 02/20/22 tablet (Vitamin B-6) Previous Rx's Medication Instructions Recorded cephalexin 500 mg tablet 500 mg PO QID #28 tabs 12/21/21 acetaminophen 300 mg-codeine 15 mg 1 tab PO Q8H PRN pain #20 tabs 02/20/22 tablet Allergies Allergy/AdvReac Type Severity Reaction Status Date / Time clindamycin Allergy Verified 02/20/22 10:16 diphenhydramine Allergy Verified 02/20/22 10:16 dulaglutide Allergy Verified 02/20/22 10:16 erythromycin base Allergy Verified 02/20/22 10:16 Penicillins Allergy Verified 02/20/22 10:16 vancomycin Allergy Verified 02/20/22 10:16 bactrim Allergy Uncoded 02/20/22 10:16 Review of Systems Status of ROS: Reports: 6 or more systems reviewed and unremarkable except as noted in History and below [facility] Medical History Anxiety ?F41.9 - Anxiety disorder, unspecified (ICD-10) Chronic pancreatitis ?K86.1 - Other chronic pancreatitis (ICD-10) Diabetes mellitus type 2 in obese ?E11.69 - Type 2 diabetes mellitus with other specified complication (ICD-10) ?E66.9 - Obesity, unspecified (ICD-10) Obesity ?E66.9 - Obesity, unspecified (ICD-10) Pancreatic insufficiency ?K86.89 - Other specified diseases of pancreas (ICD-10) Family History Mother Crohn's disease Autoimmune disease of liver Cirrhosis of liver Father Colon cancer Social History Narrative: He lives in [place] with his and 18-year-old daughter. 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 He has been temporarily on disability. He does not smoke, drink alcohol or use recreational drugs. Code status is full. Smoking Status: Never smoker Do you use any of these nicotine containing products: None Second hand tobacco smoke exposure: No How often do you have a drink containing alcohol: never AUDIT-C Alcohol total score: 0 Non-prescribed substance use: denies use service: No Exam Narrative: Exam Narrative: Objective vital signs are unremarkable Alert orient x3 no facial asymmetry Neck is supple No scalp injury or tenderness chest back abdomen unremarkable Heart rhythm regular heart murmur Abdomen soft Extremities are no edema neurologic nonfocal Normal neurologic exam in upper lower extremities. Skin warm and dry and periphery Const: Vital Signs, click to edit/add: Vital Signs - 24 hr 09/04/22 22:40 09/04/22 22:48 09/04/22 22:49 Temperature 97.4 F L Pulse Rate 102 H 101 H Pulse Rate [Left P ulse Oximeter] 104 H Respiratory Rate 18 Blood Pressure 109/70 Blood Pressure [Ri ght Upper Arm] 125/77 Pulse Oximetry 95 92 91 Oxygen Delivery Me thod Room Air 09/04/22 23:00 09/04/22 23:02 09/04/22 23:15 Temperature Pulse Rate 103 H 98 104 H Pulse Rate [Left P ulse Oximeter] Respiratory Rate Blood Pressure 113/73 Blood Pressure [Ri ght Upper Arm] Pulse Oximetry 98 98 97 Oxygen Delivery Me thod 09/04/22 23:16 09/04/22 23:30 09/04/22 23:32 Temperature Pulse Rate 98 102 H 100 Pulse Rate [Left P ulse Oximeter] Respiratory Rate Blood Pressure 127/80 123/76 Blood Pressure [Ri ght Upper Arm] Pulse Oximetry 99 99 99 Oxygen Delivery Me thod 09/04/22 23:45 09/04/22 23:47 Temperature Pulse Rate 96 90 Pulse Rate [Left P ulse Oximeter] Respiratory Rate Blood Pressure 129/86 Blood Pressure [Ri ght Upper Arm] Pulse Oximetry 97 98 Oxygen Delivery Me thod Course Vital Signs Vital signs: Initial Vital Signs Temperature 97.4 F L 09/04/22 22:40 Temperature Source Temporal Artery Scan 09/04/22 22:40 Pulse Rate 104 H 09/04/22 22:40 Pulse Rhythm Regular 09/04/22 22:40 Respiratory Rate 18 09/04/22 22:40 Blood Pressure 125/77 09/04/22 22:40 Blood Pressure Mean 93 09/04/22 22:40 Blood Pressure Position Semi-Fowlers 09/04/22 22:40 Pulse Oximetry 95 09/04/22 22:40 Oxygen Delivery Method Room Air 09/04/22 22:40 Vital Signs Temperature 97.4 F L 09/04/22 22:40 Pulse Rate 104 H 09/04/22 22:40 Respiratory Rate 18 09/04/22 22:40 Blood Pressure 125/77 09/04/22 22:40 Pulse Oximetry 95 09/04/22 22:40 Oxygen Delivery Method Room Air 09/04/22 22:40 Temperature 97.4 F L 09/04/22 22:40 Pulse Rate 90 09/04/22 23:47 Respiratory Rate 18 09/04/22 22:40 Blood Pressure 129/86 09/04/22 23:47 Pulse Oximetry 98 09/04/22 23:47 Oxygen Delivery Method Room Air 09/04/22 22:40 Medical Decision Making MDM Narrative Medical decision making narrative: Patient gives a history of pseudo-seizure. Has seen neurology and they have not elected to start antiseizure medications. When asking to wean her would like to proceed he wants to do some fluid and check his electrolytes make sure they are okay and then be discharged home. He does report he has Ativan at home. I think this is reasonable. Also he has had a CT scan within last couple months here in our ER that was unremarkable. Addendum: The patient's EKG by my read looks like normal sinus rhythm, his labs are starting to come back and look normal. He is feeling fine at this point. Any like to simply get his labs checked and some fluid and then discharged home. He does have family that can take him home. The patient's lab studies to look reassuring his EKG is reassuring, his clinical presentation is reassuring. At this point I think we can long to go home Ativan as needed, follow-up with primary care, light activity. Would recommend no driving until he is reassessed by his doctor. Lab Data Labs: Lab Results 09/04/22 Range/Units 23:10 WBC 7.77 (4.50-11.00) K/uL RBC 4.52 (4.30-5.90) m/uL Hgb 13.4 L (13.5-17.5) gm/dL Hct 39.5 (37.0-53.0) % MCV 87 (80-100) fL MCH 30 (26-34) pg MCHC 34 (32-36) gm/dL RDW Coeff of Usman 12.2 (11.5-15.5) % Plt Count 157 (140-440) K/uL Neut % (Auto) 72.1 H (42.0-72.0) % Lymph % (Auto) 16.9 L (20-44) % [place] % (Auto) 8.5 (0.0-11.0) % Eos % (Auto) 1.2 (0.0-7.0) % Baso % (Auto) 0.3 (0.0-3.0) % Neut # (Auto) 5.60 (1.7-7.0) K/uL Lymph # (Auto) 1.30 (0.90-2.90) K/uL [place] # (Auto) 0.70 (0.00-0.90) K/UL Eos # (Auto) 0.09 (0.00-0.50) K/uL Baso # (Auto) 0.02 (0.00-0.30) K/uL Sodium 135 (135-149) mmol/L Potassium 4.1 (3.6-5.1) mmol/L Chloride 101 (96-114) mmol/L Carbon Dioxide 27 (20-32) mmol/L BUN 13 (5-24) mg/dL Creatinine 1.0 (0.5-1.5) mg/dL Estimated GFR 95 ml/min Glucose 160 H (60-115) mg/dL Calcium 8.7 (8.4-10.6) mg/dL C-Reactive Protein 0.8 (0.5-1.0) mg/dL Amylase 148 H (18-89) U/L Discharge Plan Discharge Clinical Impression: Seizure Patient Disposition: Home w/ Parent or Adult Condition: Improved Additional Instructions: Rest, light activity, fluids, Ativan as needed. Follow up with primary care in the next 2-3 days. No driving Activity Level: Light activity Diet Detail: Diet as per usual Prescriptions: No Action acetaminophen-codeine 300-15 mg tablet 1 tab PO Q8H PRN (Reason: pain) Qty: 20 0RF buspirone 10 mg tablet 10 mg PO TID Patient Comments: TAKE 1 TABLET BY MOUTH THREE TIMES DAILY Pancreaze 37,000-97,300- 149,900 unit capsule,delayed release(DR/EC) 2 cap PO TIDWM Patient Comments: TAKE 2 CAPSULES BY MOUTH THREE TIMES DAILY WITH MEALS & 1 CAPSULE WITH EACH SNACK SWALLOWING WHOLE. DO NOT CRUSH, CHEW, AND/OR DIVIDE lisinopril 10 mg tablet 10 mg PO DAILY Patient Comments: TAKE 1 TABLET BY MOUTH ONCE DAILY Tresiba FlexTouch U-100 100 unit/mL (3 mL) insulin pen 160 unit SUBCUT QPM lorazepam 1 mg tablet 1 mg PO TID PRN glipizide 10 mg tablet extended release 24hr 10 mg PO BIDWM Patient Comments: TAKE 1 TABLET BY MOUTH TWICE DAILY BEFORE MEALS ondansetron 4 mg tablet,disintegrating 4 mg PO TID PRN Patient Comments: DISSOLVE 1 TABLET IN MOUTH EVERY 8 HOURS NEEDED FOR NAUSEA AND VOMITING pyridoxine (vitamin B6) [Vitamin B-6] 25 mg tablet Patient Comments: TAKE 1 TABLET BY MOUTH THREE TIMES DAILY omeprazole 40 mg capsule,delayed release(DR/EC) amitriptyline 10 mg tablet Patient Comments: TAKE 1 TABLET BY MOUTH AT BEDTIME Glucagon Emergency Kit (human) 1 mg recon soln Patient Comments: INJECT 1MG DIRECTED EACH TIME IF NEEDED (SYMPTOMATIC HYPOGLYCEMIA LESS THAN 50 AND NOT RESPONDING TO ORAL GLUCOSE ibuprofen cephalexin 500 mg tablet 500 mg PO QID Qty: 28 0RF Follow Up/Referrals: Gallo Mejia MD [Primary Care Provider] - [facility]one [facility] Info Inst[facility]
[2022-09-04] MEDS: 0.9 % SODIUM CHLORIDE 1000 ml 1,000 ML 6000 ML IV (23:11)
[2022-09-04 23:24] LABS: Basophils Absolute Auto 0.02 K/uL (0.00-0.30); Basophils Percent Auto 0.3 % (0.0-3.0); Eosinophils Absolute Auto 0.09 K/uL (0.00-0.50); Eosinophils Percent Auto 1.2 % (0.0-7.0); Hematocrit 39.5 % (37.0-53.0); Hemoglobin* 13.4 gm/dL (13.5-17.5); Immature Granulocytes Abs Auto 0.08 K/uL (0.00-0.30); Lymphocytes Percent Auto 16.9 % (20-44); Mean Corpuscular HGB Conc 34 gm/dL (32-36); Mean Corpuscular Hemoglobin 30 pg (26-34); Mean Corpuscular Volume 87 fL (80-100); Monocytes Percent Auto 8.5 % (0.0-11.0); Neutrophils Percent Auto 72.1 % (42.0-72.0); Platelet Count* 157 K/uL (140-440); RDW Coefficient of Variation % 12.2 % (11.5-15.5); Red Blood Count 4.52 m/uL (4.30-5.90); White Blood Count* 7.77 K/uL (4.50-11.00)
[2022-09-04 23:27] LABS: Slide Review Reflex No
[2022-09-04 23:35] LABS: Chloride* 101 mmol/L (96-114); Potassium* 4.1 mmol/L (3.6-5.1); Sodium* 135 mmol/L (135-149)
[2022-09-04 23:37] LABS: Amylase* 148 U/L (18-89)
[2022-09-04 23:38] LABS: Blood Urea Nitrogen* 13 mg/dL (5-24); Carbon Dioxide* 27 mmol/L (20-32); Estimated Glomerular Filt Rate 95 ml/min
[2022-09-04 23:39] LABS: Calcium* 8.7 mg/dL (8.4-10.6); Glucose* 160 mg/dL (60-115)
[2022-09-04 23:41] LABS: C Reactive Protein* 0.8 mg/dL (0.5-1.0)
[2022-09-04] MEDS: ACETAMINOPHEN 500 MG TABLET 1000 MG PO (23:47)
== END 2022-09-05 00:21 | disposition home or self-care (01) ==
PROVIDERS: Emergency Provider Family Medicine; PCP Family Medicine
DX: R56.9 Unspecified convulsions (principal)
CPT/HCPCS: 36415; 80048; 82150; 85025; 86140; 93005; 99284; A9270; J7030

== ENCOUNTER 2022-09-06 08:33 | Outpatient (CLI) | payer BC, SELFPAY | END 2022-09-06 08:34 | disposition home or self-care (01) | LOC: AMB 09-08 10:08 | PROVIDERS: PCP Family Medicine; Visit Provider Family Medicine | DX: G40.909 Epilepsy, unspecified, not intractable, without status epilepticus (principal) | CPT/HCPCS: A0425; A0427 ==

== ENCOUNTER 2022-09-06 08:55 | Emergency (ER) | payer BC, SELFPAY ==
[2022-09-06] VITALS (37 sets, daily range): BP systolic 104–132; BP diastolic 61–90; PULSE 79–116; RESP 18; TEMP 36.8; O2SAT 88–98; BMI 33.2
--- NOTE | 2022-09-06 09:40 | ED.NURSE ---
Dr Orta asked to have pt's blood sugar checked. Pt was desaturating. Dr Orta able to talk to pt and ask for him to take breath. Pt would inhale and O2 sats could increase. This nurse did not that pt opened his eyes slightly when Dr Orta turned to look at his medications. RT was also at bedside.
--- NOTE | 2022-09-06 10:08 | CRLHL7_ITS ---
For Patients: As a result of the Century Cures Act, medical imaging exams and procedure reports are released immediately into your electronic medical record. You may view this report before your referring provider. If you have questions, please contact your health care provider. INDICATION: Seizure x2 TECHNIQUE: CT head without contrast. COMPARISON: Head CT 06/26/2012 FINDINGS: CSF spaces: Within normal limits for age. Brain parenchyma: The pena-white differentiation is normal. No sign of mass, hemorrhage, or midline shift. Skull base and calvarium: Congenital hypoplastic right mastoid air cells. The visualized orbits are grossly unremarkable. No skull fractures. IMPRESSION: Unremarkable noncontrast head CT. Please note that all CT scans at this facility use dose modulation, iterative reconstruction, and/or weight-based dosing when appropriate to reduce radiation dose to as low as reasonably achievable. Dictated by Reggie Cuenca MD @ 09/06/2022 11:37:24 AM (Electronically Signed)
[2022-09-06 10:34] LABS: Lactate* 2.6 mmol/L (0.5-1.9)
[2022-09-06 10:36] LABS: Basophils Absolute Auto 0.01 K/uL (0.00-0.30); Basophils Percent Auto 0.1 % (0.0-3.0); Eosinophils Absolute Auto 0.02 K/uL (0.00-0.50); Eosinophils Percent Auto 0.2 % (0.0-7.0); Hematocrit 45.1 % (37.0-53.0); Hemoglobin* 15.5 gm/dL (13.5-17.5); Immature Granulocytes Abs Auto 0.01 K/uL (0.00-0.30); Immature Granulocytes Pct Auto 0.1 %; Lymphocytes Percent Auto 8.8 % (20-44); Mean Corpuscular HGB Conc 34 gm/dL (32-36); Mean Corpuscular Hemoglobin 30 pg (26-34); Mean Corpuscular Volume 86 fL (80-100); Monocytes Percent Auto 5.1 % (0.0-11.0); Neutrophils Percent Auto 85.7 % (42.0-72.0); Platelet Count* 187 K/uL (140-440); RDW Coefficient of Variation % 12.2 % (11.5-15.5); Red Blood Count 5.22 m/uL (4.30-5.90); White Blood Count* 9.58 K/uL (4.50-11.00)
[2022-09-06 10:38] LABS: Slide Review Reflex No
[2022-09-06] MEDS: 0.9 % SODIUM CHLORIDE 1000 ml 1,000 ML IV ×2 (10:45→11:45)
[2022-09-06 11:00] LABS: Albumin* 4.5 g/dL (3.3-5.0); Chloride* 104 mmol/L (96-114)
[2022-09-06 11:01] LABS: Potassium* 4.7 mmol/L (3.6-5.1); Sodium* 139 mmol/L (135-149)
[2022-09-06 11:03] LABS: Bilirubin Direct* 0.3 mg/dL (0.0-0.5); Bilirubin Total* 0.4 mg/dL (0.1-1.5); Carbon Dioxide* 29 mmol/L (20-32); Creatinine* 0.9 mg/dL (0.5-1.5); Est. Creatinine Clearance* 103.65; Estimated Glomerular Filt Rate 107 ml/min; Total Protein* 7.8 g/dL (6.0-8.3)
[2022-09-06 11:04] LABS: Alanine Aminotransferase* 33 U/L (4-50); Alkaline Phosphatase* 61 U/L (40-150); Aspartate Amino Transferase* 36 U/L (12-35); Blood Urea Nitrogen* 13 mg/dL (5-24); Calcium* 9.2 mg/dL (8.4-10.6); Glucose* 135 mg/dL (60-115); Lipase* 758 U/L (23-300)
[2022-09-06 11:23] LABS: Lactate* 1.9 mmol/L (0.5-1.9)
[2022-09-06 11:27] LABS: Acetaminophen* < 10.0 ug/mL (10.0-30.0); Ethanol* < 0.01 % (0.01-0.03)
--- NOTE | 2022-09-06 11:33 | ED.NURSE ---
Pt's stating pt's glucose monitor is reading low. Requesting BG recheck. BG rechecked, BG at 112.
[2022-09-06 11:40] LABS: Amphetamine Screen Urine Negative (Negative); Barbiturate Screen Urine Negative (Negative); Cocaine Screen Urine Negative (Negative); Methadone Screen Urine Negative (Negative); Methamphetamines Screen Urine Negative (Negative); Opiate Screen Urine Negative (Negative); Oxycodone Screen Urine Negative (Negative); Phencyclidine Screen Urine Negative (Negative); Tricyclic Antidepressant Urine Negative (Negative)
[2022-09-06 11:42] LABS: Benzodiazepines Screen Urine POSITIVE (Negative); Cannabinoid Screen Urine POSITIVE (Negative)
[2022-09-06] MEDS: ACETAMINOPHEN 500 MG TABLET 1000 MG PO (12:12)
--- NOTE | 2022-09-06 16:43 | ED_ITS ---
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 He is followed by [facility], and has a psychology follow-up coming this week. EEG showed no abnormality and was consistent with pseudoseizures they tell me. He has also had an MRI. He was recently here in the emergency room, few days ago. Denies any history of illicit substances, fevers chills or sweats, can tell that the seizures coming on. MD complaint: feels seizure coming on Description of Episode: tonic-clonic movement Trauma: No Seizure History: Yes Place: home Possible Precipitating Event: none Associated symptoms: denies other symptoms Treatments prior to arrival: none Related Data Home Medications Medication Instructions Recorded Confirmed buspirone 10 mg tablet 10 mg PO TID 12/09/21 02/20/22 glipizide 10 mg tablet, extended 10 mg PO BIDWM 12/09/21 02/20/22 release 24 hr insulin degludec 100 unit/mL (3 160 unit subcut QPM 12/09/21 02/20/22 mL) subcutaneous pen (Tresiba FlexTouch U-100 insulin) lipase 37,000-protease 2 cap PO TIDWM 12/09/21 02/20/22 97,300-amylase 149,900 unit capsule,delayed rel (Pancreaze) lisinopril 10 mg tablet 10 mg PO DAILY 12/09/21 02/20/22 lorazepam 1 mg tablet 1 mg PO TID PRN 12/09/21 02/20/22 ondansetron 4 mg disintegrating 4 mg PO TID PRN 12/09/21 02/20/22 tablet amitriptyline 10 mg tablet mg 12/21/21 02/20/22 glucagon 1 mg solution for mg 12/21/21 02/20/22 injection (Glucagon Emergency Kit) ibuprofen 12/21/21 02/20/22 omeprazole 40 mg capsule,delayed mg 12/21/21 02/20/22 release pyridoxine (vitamin B6) 25 mg mg 12/21/21 02/20/22 tablet (Vitamin B-6) Previous Rx's Medication Instructions Recorded cephalexin 500 mg tablet 500 mg PO QID #28 tabs 12/21/21 acetaminophen 300 mg-codeine 15 mg 1 tab PO Q8H PRN pain #20 tabs 02/20/22 tablet Allergies Allergy/AdvReac Type Severity Reaction Status Date / Time clindamycin Allergy Verified 02/20/22 10:16 diphenhydramine Allergy Verified 02/20/22 10:16 dulaglutide Allergy Verified 02/20/22 10:16 erythromycin base Allergy Verified 02/20/22 10:16 Penicillins Allergy Verified 02/20/22 10:16 vancomycin Allergy Verified 02/20/22 10:16 bactrim Allergy Uncoded 02/20/22 10:16 Review of Systems Status of ROS: Reports: 10 or more systems reviewed and unremarkable except as noted in History and below PFSH FOR[facility] Medical History Anxiety ?F41.9 - Anxiety disorder, unspecified (ICD-10) Chronic pancreatitis ?K86.1 - Other chronic pancreatitis (ICD-10) Diabetes mellitus type 2 in obese ?E11.69 - Type 2 diabetes mellitus with other specified complication (ICD-10) ?E66.9 - Obesity, unspecified (ICD-10) Obesity ?E66.9 - Obesity, unspecified (ICD-10) Pancreatic insufficiency ?K86.89 - Other specified diseases of pancreas (ICD-10) Family History Mother Crohn's disease Autoimmune disease of liver Cirrhosis of liver Father Colon cancer Social History Narrative: He lives in [place] with his and 18-year-old daughter. 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 He has been temporarily on disability. He does not smoke, drink alcohol or use recreational drugs. Code status is full. Smoking Status: Never smoker Do you use any of these nicotine containing products: None Second hand tobacco smoke exposure: No How often do you have a drink containing alcohol: never AUDIT-C Alcohol total score: 0 Non-prescribed substance use: denies use service: No Exam Narrative: Exam Narrative: Patient is seen in room 8 he is in no apparent distress, answer my questions appropriately alert and oriented x3, with a GCS of 15/15 pupils are equal round reactive to light there is no scleral icterus redness TMs are normal oropharynx normal there is no adenopathy anterior posterior chains and cranial nerves 3-12 are normal, no meningismus, a chest is good air entry bilaterally no wheezing crackles noted heart sounds are normal, there is no adenopathy anterior posterior chains abdomen is soft there is no guarding no organomegaly, bowel sounds are normal he moves all extremities independently well, no evidence of any bruising or other issues. Tongue is otherwise normal, with no bleeding ton harrison biting and he has a continent of urine. All was examine him, he had 1 of his spells, where a he would look away, his said this is what he does when he has is seizure. He was able to talk to be during this, he did do some breath-holding but then the breath-holding. Common I told him to breathe, he went back to baseline. Const: Vital Signs, click to edit/add: Vital Signs - 24 hr 09/06/22 09:07 09/06/22 09:11 09/06/22 09:15 Temperature 98.2 F Pulse Rate 103 H 102 H Pulse Rate [Right Pulse Oximeter] 116 H Respiratory Rate 18 Blood Pressure Blood Pressure [Ri ght Upper Arm] 104/61 Pulse Oximetry 94 94 93 Oxygen Delivery Me thod Room Air 09/06/22 09:30 09/06/22 09:32 09/06/22 09:45 Temperature Pulse Rate 103 H 95 94 Pulse Rate [Right Pulse Oximeter] Respiratory Rate Blood Pressure 114/73 Blood Pressure [Ri ght Upper Arm] Pulse Oximetry 93 91 94 Oxygen Delivery Me thod 09/06/22 10:00 09/06/22 10:01 09/06/22 10:02 Temperature Pulse Rate 93 97 96 Pulse Rate [Right Pulse Oximeter] Respiratory Rate Blood Pressure 111/66 Blood Pressure [Ri ght Upper Arm] Pulse Oximetry 88 92 92 Oxygen Delivery Me thod 09/06/22 10:15 09/06/22 10:30 09/06/22 10:35 Temperature Pulse Rate 91 89 89 Pulse Rate [Right Pulse Oximeter] Respiratory Rate Blood Pressure Blood Pressure [Ri ght Upper Arm] Pulse Oximetry 94 98 96 Oxygen Delivery Me thod 09/06/22 10:36 09/06/22 10:50 09/06/22 10:51 Temperature Pulse Rate 92 97 95 Pulse Rate [Right Pulse Oximeter] Respiratory Rate Blood Pressure 126/89 Blood Pressure [Ri ght Upper Arm] Pulse Oximetry 96 96 96 Oxygen Delivery Me thod 09/06/22 10:52 09/06/22 11:00 09/06/22 11:01 Temperature Pulse Rate 90 90 90 Pulse Rate [Right Pulse Oximeter] Respiratory Rate Blood Pressure 128/86 Blood Pressure [Ri ght Upper Arm] Pulse Oximetry 95 96 96 Oxygen Delivery Me thod 09/06/22 11:15 09/06/22 11:30 09/06/22 11:31 Temperature Pulse Rate 95 86 94 Pulse Rate [Right Pulse Oximeter] Respiratory Rate Blood Pressure 132/90 H Blood Pressure [Ri ght Upper Arm] Pulse Oximetry 96 97 98 Oxygen Delivery Me thod 09/06/22 11:32 09/06/22 11:45 09/06/22 12:00 Temperature Pulse Rate 85 83 84 Pulse Rate [Right Pulse Oximeter] Respiratory Rate Blood Pressure Blood Pressure [Ri ght Upper Arm] Pulse Oximetry 97 96 93 Oxygen Delivery Me thod 09/06/22 12:02 09/06/22 12:03 09/06/22 12:15 Temperature Pulse Rate 94 86 89 Pulse Rate [Right Pulse Oximeter] Respiratory Rate Blood Pressure 114/74 Blood Pressure [Ri ght Upper Arm] Pulse Oximetry 94 95 97 Oxygen Delivery Me thod 09/06/22 12:30 09/06/22 12:32 09/06/22 12:45 Temperature Pulse Rate 95 92 79 Pulse Rate [Right Pulse Oximeter] Respiratory Rate Blood Pressure 128/86 Blood Pressure [Ri ght Upper Arm] Pulse Oximetry 98 98 97 Oxygen Delivery Me thod 09/06/22 13:00 09/06/22 13:01 09/06/22 13:02 Temperature Pulse Rate 81 82 87 Pulse Rate [Right Pulse Oximeter] Respiratory Rate Blood Pressure 117/77 Blood Pressure [Ri ght Upper Arm] Pulse Oximetry 96 96 97 Oxygen Delivery Me thod 09/06/22 13:15 09/06/22 13:30 09/06/22 13:32 Temperature Pulse Rate 85 85 87 Pulse Rate [Right Pulse Oximeter] Respiratory Rate Blood Pressure 124/77 Blood Pressure [Ri ght Upper Arm] Pulse Oximetry 98 98 95 Oxygen Delivery Me thod 09/06/22 13:45 Temperature Pulse Rate 83 Pulse Rate [Right Pulse Oximeter] Respiratory Rate Blood Pressure Blood Pressure [Ri ght Upper Arm] Pulse Oximetry 94 Oxygen Delivery Me thod Course Course Hospital Course: Patient remained stable, no evidence of any abnormality, it no further seizure episodes, drug screen did show evidence of marijuana, and lorazepam. Which he told me about. I think at this point we can discharge him home, follow-up with Neurology. Vital Signs Vital signs: Initial Vital Signs Temperature 98.2 F 09/06/22 09:07 Temperature Source Temporal Artery Scan 09/06/22 09:07 Pulse Rate 116 H 09/06/22 09:07 Respiratory Rate 18 09/06/22 09:07 Blood Pressure 104/61 09/06/22 09:07 Blood Pressure Mean 75 09/06/22 09:07 Blood Pressure Position Right Lateral 09/06/22 09:07 Pulse Oximetry 94 09/06/22 09:07 Oxygen Delivery Method Room Air 09/06/22 09:07 Vital Signs Temperature 98.2 F 09/06/22 09:07 Pulse Rate 116 H 09/06/22 09:07 Respiratory Rate 18 09/06/22 09:07 Blood Pressure 104/61 09/06/22 09:07 Pulse Oximetry 94 09/06/22 09:07 Oxygen Delivery Method Room Air 09/06/22 09:07 Temperature 98.2 F 09/06/22 09:07 Pulse Rate 83 09/06/22 13:45 Respiratory Rate 18 09/06/22 09:07 Blood Pressure 124/77 09/06/22 13:32 Pulse Oximetry 94 09/06/22 13:45 Oxygen Delivery Method Room Air 09/06/22 09:07 MDM - Seizure MDM Narrative Medical decision making narrative: Differential diagnosis include but not limited to epilepsy, drug toxin ingestion, blood sugar abnormalities, cancer, syncope, and electrolyte imbalances. This included life-threatening complications of drug toxin ingestion, cancer, and trauma head injury. Differential Diagnosis Differential diagnosis: Likely intractable seizure disorder, febrile convulsion, focal seizure and generalized seizure Medical Records Attestation: I reviewed the patient's medical records. Lab Data Attestation: I reviewed the patient's lab results. Labs: Lab Results 09/06/22 09/06/22 09/06/22 Range/Units 10:09 10:22 11:10 WBC 9.58 (4.50-11.00) K/uL RBC 5.22 (4.30-5.90) m/uL Hgb 15.5 (13.5-17.5) gm/dL Hct 45.1 (37.0-53.0) % MCV 86 (80-100) fL MCH 30 (26-34) pg MCHC 34 (32-36) gm/dL RDW Coeff of Usman 12.2 (11.5-15.5) % Plt Count 187 (140-440) K/uL Neut % (Auto) 85.7 H (42.0-72.0) % Lymph % (Auto) 8.8 L (20-44) % [place] % (Auto) 5.1 (0.0-11.0) % Eos % (Auto) 0.2 (0.0-7.0) % Baso % (Auto) 0.1 (0.0-3.0) % Neut # (Auto) 8.20 H (1.7-7.0) K/uL Lymph # (Auto) 0.80 L (0.90-2.90) K/uL [place] # (Auto) 0.50 (0.00-0.90) K/UL Eos # (Auto) 0.02 (0.00-0.50) K/uL Baso # (Auto) 0.01 (0.00-0.30) K/uL Sodium 139 (135-149) mmol/L Potassium 4.7 (3.6-5.1) mmol/L Chloride 104 (96-114) mmol/L Carbon Dioxide 29 (20-32) mmol/L BUN 13 (5-24) mg/dL Creatinine 0.9 (0.5-1.5) mg/dL Estimated Creat Clear 103.65 Estimated GFR 107 ml/min Glucose 135 H (60-115) mg/dL Lactate 2.6 H (0.5-1.9) mmol/L Calcium 9.2 (8.4-10.6) mg/dL Total Bilirubin 0.4 (0.1-1.5) mg/dL Direct Bilirubin 0.3 (0.0-0.5) mg/dL AST 36 H (12-35) U/L ALT 33 (4-50) U/L Alkaline Phosphatase 61 (40-150) U/L Total Protein 7.8 (6.0-8.3) g/dL Albumin 4.5 (3.3-5.0) g/dL Lipase 758 H (23-300) U/L Urine Opiates Screen Negative (Negative) Ur Oxycodone Screen Negative (Negative) Urine Methadone Screen Negative (Negative) Ur Propoxyphene Screen Negative (Negative) Acetaminophen < 10.0 L (10.0-30.0) ug/mL Ur Barbiturates Screen Negative (Negative) U Tricyclic Antidepress Negative (Negative) Ur Phencyclidine Scrn Negative (Negative) Ur Amphetamines Screen Negative (Negative) U Methamphetamines Scrn Negative (Negative) U Benzodiazepines Scrn POSITIVE A* (Negative) Urine Cocaine Screen Negative (Negative) U Marijuana (THC) Screen POSITIVE A* (Negative) Ur Drug Screen Comment See Note Ethyl Alcohol < 0.01 L (0.01-0.03) % POC Troponin I 0.00 L (0.01-0.04) ng/ml 09/06/22 Range/Units 11:15 WBC (4.50-11.00) K/uL RBC (4.30-5.90) m/uL Hgb (13.5-17.5) gm/dL Hct (37.0-53.0) % MCV (80-100) fL MCH (26-34) pg MCHC (32-36) gm/dL RDW Coeff of Usman (11.5-15.5) % Plt Count (140-440) K/uL Neut % (Auto) (42.0-72.0) % Lymph % (Auto) (20-44) % [place] % (Auto) (0.0-11.0) % Eos % (Auto) (0.0-7.0) % Baso % (Auto) (0.0-3.0) % Neut # (Auto) (1.7-7.0) K/uL Lymph # (Auto) (0.90-2.90) K/uL [place] # (Auto) (0.00-0.90) K/UL Eos # (Auto) (0.00-0.50) K/uL Baso # (Auto) (0.00-0.30) K/uL Sodium (135-149) mmol/L Potassium (3.6-5.1) mmol/L Chloride (96-114) mmol/L Carbon Dioxide (20-32) mmol/L BUN (5-24) mg/dL Creatinine (0.5-1.5) mg/dL Estimated Creat Clear Estimated GFR ml/min Glucose (60-115) mg/dL Lactate 1.9 (0.5-1.9) mmol/L Calcium (8.4-10.6) mg/dL Total Bilirubin (0.1-1.5) mg/dL Direct Bilirubin (0.0-0.5) mg/dL AST (12-35) U/L ALT (4-50) U/L Alkaline Phosphatase (40-150) U/L Total Protein (6.0-8.3) g/dL Albumin (3.3-5.0) g/dL Lipase (23-300) U/L Urine Opiates Screen (Negative) Ur Oxycodone Screen (Negative) Urine Methadone Screen (Negative) Ur Propoxyphene Screen (Negative) Acetaminophen (10.0-30.0) ug/mL Ur Barbiturates Screen (Negative) U Tricyclic Antidepress (Negative) Ur Phencyclidine Scrn (Negative) Ur Amphetamines Screen (Negative) U Methamphetamines Scrn (Negative) U Benzodiazepines Scrn (Negative) Urine Cocaine Screen (Negative) U Marijuana (THC) Screen (Negative) Ur Drug Screen Comment Ethyl Alcohol (0.01-0.03) % POC Troponin I (0.01-0.04) ng/ml Imaging Data CT scan - head: Attestation: I have reviewed the pertinent imaging results. My impression: Negative Radiologist's impression: Nothing acute Discharge Plan Discharge Clinical Impression: Psychiatric pseudoseizure, Seizure, Chronic pancreatitis Patient Disposition: Home w/ Parent or Adult Condition: Stable Instructions: Conversion Disorder (ED) Additional Instructions: Home rest avoidance of alcohol and drugs, follow-up with Neurology, and Psychology, return as needed. No swimming, or bathing in the bathtub by herself. Prescriptions: No Action acetaminophen-codeine 300-15 mg tablet 1 tab PO Q8H PRN (Reason: pain) Qty: 20 0RF buspirone 10 mg tablet 10 mg PO TID Patient Comments: TAKE 1 TABLET BY MOUTH THREE TIMES DAILY Pancreaze 37,000-97,300- 149,900 unit capsule,delayed release(DR/EC) 2 cap PO TIDWM Patient Comments: TAKE 2 CAPSULES BY MOUTH THREE TIMES DAILY WITH MEALS & 1 CAPSULE WITH EACH SNACK SWALLOWING WHOLE. DO NOT CRUSH, CHEW, AND/OR DIVIDE lisinopril 10 mg tablet 10 mg PO DAILY Patient Comments: TAKE 1 TABLET BY MOUTH ONCE DAILY Tresiba FlexTouch U-100 100 unit/mL (3 mL) insulin pen 160 unit SUBCUT QPM lorazepam 1 mg tablet 1 mg PO TID PRN glipizide 10 mg tablet extended release 24hr 10 mg PO BIDWM Patient Comments: TAKE 1 TABLET BY MOUTH TWICE DAILY BEFORE MEALS ondansetron 4 mg tablet,disintegrating 4 mg PO TID PRN Patient Comments: DISSOLVE 1 TABLET IN MOUTH EVERY 8 HOURS NEEDED FOR NAUSEA AND VOMITING pyridoxine (vitamin B6) [Vitamin B-6] 25 mg tablet Patient Comments: TAKE 1 TABLET BY MOUTH THREE TIMES DAILY omeprazole 40 mg capsule,delayed release(DR/EC) amitriptyline 10 mg tablet Patient Comments: TAKE 1 TABLET BY MOUTH AT BEDTIME Glucagon Emergency Kit (human) 1 mg recon soln Patient Comments: INJECT 1MG DIRECTED EACH TIME IF NEEDED (SYMPTOMATIC HYPOGLYCEMIA LESS THAN 50 AND NOT RESPONDING TO ORAL GLUCOSE ibuprofen cephalexin 500 mg tablet 500 mg PO QID Qty: 28 0RF Follow Up/Referrals: aGllo Mejia MD [Primary Care Provider] - [facility]
== END 2022-09-06 14:00 | disposition home or self-care (01) ==
PROVIDERS: Emergency Provider Family Medicine; PCP Family Medicine
DX: R56.9 Unspecified convulsions (principal); K86.1 Other chronic pancreatitis
CPT/HCPCS: 36415; 70450; 80048; 80076; 80143; 80306; 82077; 82962; 83605; 83690; 84484; 85025; 93005; 99284; A9270; J7030

== ENCOUNTER 2022-09-11 01:48 | Emergency (ER) | payer BC, SELFPAY ==
[2022-09-11] VITALS (20 sets, daily range): BP systolic 131–198; BP diastolic 78–115; PULSE 75–107; RESP 18; TEMP 36.3; O2SAT 92–99; BMI 33.8
[2022-09-11] MEDS: ONDANSETRON 2 MG/ML inj 4 MG IVP (02:37)
[2022-09-11] MEDS: 0.9 % SODIUM CHLORIDE 1000 ml 1,000 ML IV (02:37)
[2022-09-11] MEDS: KETOROLAC 30 MG/ML inj IVP (02:37)
[2022-09-11] MEDS: LORazepam 2 MG/ML inj 0.5 MG IVP (02:38)
[2022-09-11 03:01] LABS: Basophils Absolute Auto 0.01 K/uL (0.00-0.30); Basophils Percent Auto 0.1 % (0.0-3.0); Eosinophils Absolute Auto 0.09 K/uL (0.00-0.50); Eosinophils Percent Auto 1.3 % (0.0-7.0); Hematocrit 43.2 % (37.0-53.0); Hemoglobin* 14.9 gm/dL (13.5-17.5); Immature Granulocytes Abs Auto 0.07 K/uL (0.00-0.30); Lymphocytes Absolute Auto 1.44 K/uL (0.90-2.90); Lymphocytes Percent Auto 20.1 % (20-44); Mean Corpuscular HGB Conc 35 gm/dL (32-36); Mean Corpuscular Hemoglobin 30 pg (26-34); Mean Corpuscular Volume 86 fL (80-100); Monocytes Percent Auto 9.6 % (0.0-11.0); Neutrophils Absolute Auto 4.86 K/uL (1.7-7.0); Neutrophils Percent Auto 67.9 % (42.0-72.0); Platelet Count* 173 K/uL (140-440); Red Blood Count 5.03 m/uL (4.30-5.90); White Blood Count* 7.16 K/uL (4.50-11.00)
[2022-09-11 03:15] LABS: Albumin* 4.1 g/dL (3.3-5.0); Chloride* 102 mmol/L (96-114)
[2022-09-11 03:16] LABS: Potassium* 4.1 mmol/L (3.6-5.1); Sodium* 138 mmol/L (135-149)
[2022-09-11 03:17] LABS: Slide Review Reflex No
[2022-09-11 03:18] LABS: Alkaline Phosphatase* 54 U/L (40-150); Aspartate Amino Transferase* 25 U/L (12-35); Bilirubin Direct* 0.3 mg/dL (0.0-0.5); Bilirubin Total* 0.8 mg/dL (0.1-1.5); Carbon Dioxide* 31 mmol/L (20-32); Creatinine* 0.9 mg/dL (0.5-1.5); Est. Creatinine Clearance* 103.65; Estimated Glomerular Filt Rate 107 ml/min; Total Protein* 7.1 g/dL (6.0-8.3)
[2022-09-11 03:19] LABS: Alanine Aminotransferase* 30 U/L (4-50); Blood Urea Nitrogen* 11 mg/dL (5-24); Calcium* 9.3 mg/dL (8.4-10.6); Glucose* 184 mg/dL (60-115); Magnesium* 1.7 mg/dL (1.5-2.6)
[2022-09-11 03:21] LABS: C Reactive Protein* 1.2 mg/dL (0.5-1.0); Ethanol* < 0.01 % (0.01-0.03)
[2022-09-11 03:37] LABS: Appearance Urine Clear (Clear); Bilirubin Urine Negative (Negative); Blood Urine Negative (Negative); Color Urine Yellow (Yellow); Glucose Urine Negative (Negative); Ketones Urine 1+ (Negative); Leukocyte Esterase Urine Negative (Negative); Nitrite Urine Negative (Negative); Protein Urine Negative (Negative)
[2022-09-11 03:38] LABS: PCR FLU A Negative PCR FLU A (Negative); PCR FLU B Negative PCR FLU B (Negative); PCR RSV Negative PCR RSV (Negative)
[2022-09-11 03:39] LABS: SARS PCR* Negative SARS-CoV-2 (Negative)
[2022-09-11 03:43] LABS: RBC Urine 0-2 (0-2); Squamous Epithelial Cell Urine Few (None-Few); WBC Urine 0-2 (0-5)
[2022-09-11 03:44] LABS: Amphetamine Screen Urine Negative (Negative); Barbiturate Screen Urine Negative (Negative); Cocaine Screen Urine Negative (Negative); Methadone Screen Urine Negative (Negative); Methamphetamines Screen Urine Negative (Negative); Opiate Screen Urine Negative (Negative); Oxycodone Screen Urine Negative (Negative); Phencyclidine Screen Urine Negative (Negative); Tricyclic Antidepressant Urine Negative (Negative)
[2022-09-11 03:45] LABS: Benzodiazepines Screen Urine POSITIVE (Negative); Cannabinoid Screen Urine POSITIVE (Negative)
--- NOTE | 2022-09-11 04:28 | PC.NURSE ---
patient headache has resolved, patient states he is feeling better, DC instructions gone over with patient and ; no further questions
--- NOTE | 2022-09-11 09:36 | ED_ITS ---
HPI - General Adult General Chief complaint: Hypertension Stated complaint: high blood pressure Time Seen by Provider: 09/11/22 02:15 History of Present Illness HPI narrative: patient was asleep and awoke with a headache, the headache was at the top of head, this prompted patient to check his bp and reports bp at home of 181/120 so they came to ER, patient has had headaches on and off all day . patient took 2 Advil 30 minutes ago, headache rates 7/10 pain. patient currently takes 20mg lisinopril daily. patinet reports he has been having seizures this week, denies having a seizure with the headache this evening. 47-year-old man with history of pseudoseizures on my review of record here with very concerned significant other noting recent seizures and inability to find anything. Has been evaluated it sounds like extensively by Neurology. Recently seen in this emergency department where 1 of these episodes was observed. Transient self resolving not postictal. notes them to be ?grand mal?. What is most concerning today now is elevated blood pressure and on and off headache. No fever. No rashes. No chest pain. Has been feeling tingly all over. No visual loss or changes. No focal weakness. Sounds as though there might be some chronic peripheral neuropathy in the setting of diabetes. Does use THC. Nauseated as well. Related Data Home Medications Medication Instructions Recorded Confirmed glipizide 10 mg tablet, extended 10 mg PO BIDWM 12/09/21 02/20/22 release 24 hr insulin degludec 100 unit/mL (3 160 unit subcut QPM 12/09/21 02/20/22 mL) subcutaneous pen (Tresiba FlexTouch U-100 insulin) lisinopril 10 mg tablet 10 mg PO DAILY 12/09/21 02/20/22 lorazepam 1 mg tablet 1 mg PO TID PRN 12/09/21 02/20/22 ondansetron 4 mg disintegrating 4 mg PO TID PRN 12/09/21 02/20/22 tablet glucagon 1 mg solution for mg 12/21/21 02/20/22 injection (Glucagon Emergency Kit) ibuprofen 12/21/21 02/20/22 omeprazole 40 mg capsule,delayed mg 08/09/22 10/09/22 release Allergies Allergy/AdvReac Type Severity Reaction Status Date / Time clindamycin Allergy Verified 02/20/22 10:16 diphenhydramine Allergy Verified 02/20/22 10:16 dulaglutide Allergy Verified 02/20/22 10:16 erythromycin base Allergy Verified 02/20/22 10:16 Penicillins Allergy Verified 02/20/22 10:16 vancomycin Allergy Verified 02/20/22 10:16 bactrim Allergy Uncoded 02/20/22 10:16 Review of Systems Status of ROS: Reports: 6 or more systems reviewed and unremarkable except as noted in History and below [facility] Medical History Anxiety ?F41.9 - Anxiety disorder, unspecified (ICD-10) Chronic pancreatitis ?K86.1 - Other chronic pancreatitis (ICD-10) Diabetes mellitus type 2 in obese ?E11.69 - Type 2 diabetes mellitus with other specified complication (ICD-10) ?E66.9 - Obesity, unspecified (ICD-10) Obesity ?E66.9 - Obesity, unspecified (ICD-10) Pancreatic insufficiency ?K86.89 - Other specified diseases of pancreas (ICD-10) Family History Mother Crohn's disease Autoimmune disease of liver Cirrhosis of liver Father Colon cancer Social History Narrative: He lives in [place] with his and 18-year-old daughter. 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 He has been temporarily on disability. He does not smoke, drink alcohol or use recreational drugs. Code status is full. Smoking Status: Never smoker Do you use any of these nicotine containing products: None Second hand tobacco smoke exposure: No How often do you have a drink containing alcohol: never AUDIT-C Alcohol total score: 0 Non-prescribed substance use: marijuana (any form) service: No Exam Narrative: Exam Narrative: Does seem rather anxious. Spouse quite concerned as well. Eyes, when not directly addressed preferred to be closed. Cranial nerves 2-12 intact. Mildly labored breathing but not tachypneic. Head looks to be atraumatic. Neck is supple. Lungs are clear heart with regular rate and rhythm no murmur rub or gallop. Abdomen is soft tender. Moving all extremities without difficulty. Well perfused. Pupils are brisk and equal. No nystagmus. Const: Vital Signs, click to edit/add: Vital Signs - 24 hr 09/11/22 01:56 09/11/22 02:14 09/11/22 02:15 Temperature 97.3 F L Pulse Rate 89 94 Pulse Rate [Pulse Oximeter] 87 Respiratory Rate 18 Blood Pressure 148/83 H Blood Pressure [Ri ght Upper Arm] 173/93 H Pulse Oximetry 99 95 95 Oxygen Delivery Me thod Room Air 09/11/22 02:16 09/11/22 02:24 09/11/22 02:30 Temperature Pulse Rate 77 107 H 89 Pulse Rate [Pulse Oximeter] Respiratory Rate Blood Pressure 198/115 H Blood Pressure [Ri ght Upper Arm] Pulse Oximetry 93 96 95 Oxygen Delivery Me thod 09/11/22 02:57 09/11/22 02:58 09/11/22 03:00 Temperature Pulse Rate 83 85 86 Pulse Rate [Pulse Oximeter] Respiratory Rate Blood Pressure 148/93 H Blood Pressure [Ri ght Upper Arm] Pulse Oximetry 93 92 94 Oxygen Delivery Me thod 09/11/22 03:02 09/11/22 03:15 09/11/22 03:22 Temperature Pulse Rate 84 88 90 Pulse Rate [Pulse Oximeter] Respiratory Rate Blood Pressure 147/86 H 131/86 Blood Pressure [Ri ght Upper Arm] Pulse Oximetry 93 94 96 Oxygen Delivery Me thod 09/11/22 03:30 09/11/22 03:42 09/11/22 03:45 Temperature Pulse Rate 75 86 82 Pulse Rate [Pulse Oximeter] Respiratory Rate Blood Pressure 137/89 Blood Pressure [Ri ght Upper Arm] Pulse Oximetry 95 95 95 Oxygen Delivery Me thod 09/11/22 04:00 09/11/22 04:02 09/11/22 04:03 Temperature Pulse Rate 86 75 78 Pulse Rate [Pulse Oximeter] Respiratory Rate Blood Pressure 131/80 Blood Pressure [Ri ght Upper Arm] Pulse Oximetry 95 96 95 Oxygen Delivery Me thod 09/11/22 04:15 09/11/22 04:22 Temperature Pulse Rate 79 79 Pulse Rate [Pulse Oximeter] Respiratory Rate Blood Pressure 133/78 Blood Pressure [Ri ght Upper Arm] Pulse Oximetry 94 96 Oxygen Delivery Me thod Documenting provider has reviewed patient's vital signs: yes Course Vital Signs Vital signs: Initial Vital Signs Temperature 97.3 F L 09/11/22 01:56 Temperature Source Temporal Artery Scan 09/11/22 01:56 Pulse Rate 87 09/11/22 01:56 Pulse Rhythm Regular 09/11/22 01:56 Respiratory Rate 18 09/11/22 01:56 Blood Pressure 173/93 H 09/11/22 01:56 Blood Pressure Mean 119 H 09/11/22 01:56 Pulse Oximetry 99 09/11/22 01:56 Oxygen Delivery Method Room Air 09/11/22 01:56 Vital Signs Temperature 97.3 F L 09/11/22 01:56 Pulse Rate 87 09/11/22 01:56 Respiratory Rate 18 09/11/22 01:56 Blood Pressure 173/93 H 09/11/22 01:56 Pulse Oximetry 99 09/11/22 01:56 Oxygen Delivery Method Room Air 09/11/22 01:56 Temperature 97.3 F L 09/11/22 01:56 Pulse Rate 79 09/11/22 04:22 Respiratory Rate 18 09/11/22 01:56 Blood Pressure 133/78 09/11/22 04:22 Pulse Oximetry 96 09/11/22 04:22 Oxygen Delivery Method Room Air 09/11/22 01:56 Medical Decision Making MDM Narrative Medical decision making narrative: No red flags with this complaint of headache. I do propose treatment of this headache. I also perceive a good deal of anxiety around these events. Ordered for IV fluids ketorolac lorazepam Zofran. On reassessment is markedly improved. Blood pressures have normalized. Lab Data Lab results reviewed: Yes I reviewed the patient's lab results Labs: Lab Results 09/11/22 09/11/22 Range/Units 02:45 03:29 WBC 7.16 (4.50-11.00) K/uL RBC 5.03 (4.30-5.90) m/uL Hgb 14.9 (13.5-17.5) gm/dL Hct 43.2 (37.0-53.0) % MCV 86 (80-100) fL MCH 30 (26-34) pg MCHC 35 (32-36) gm/dL RDW Coeff of Usman 12.0 (11.5-15.5) % Plt Count 173 (140-440) K/uL Neut % (Auto) 67.9 (42.0-72.0) % Lymph % (Auto) 20.1 (20-44) % Bureau % (Auto) 9.6 (0.0-11.0) % Eos % (Auto) 1.3 (0.0-7.0) % Baso % (Auto) 0.1 (0.0-3.0) % Neut # (Auto) 4.86 (1.7-7.0) K/uL Lymph # (Auto) 1.44 (0.90-2.90) K/uL Bureau # (Auto) 0.70 (0.00-0.90) K/UL Eos # (Auto) 0.09 (0.00-0.50) K/uL Baso # (Auto) 0.01 (0.00-0.30) K/uL Sodium 138 (135-149) mmol/L Potassium 4.1 (3.6-5.1) mmol/L Chloride 102 (96-114) mmol/L Carbon Dioxide 31 (20-32) mmol/L BUN 11 (5-24) mg/dL Creatinine 0.9 (0.5-1.5) mg/dL Estimated Creat Clear 103.65 Estimated GFR 107 ml/min Glucose 184 H (60-115) mg/dL Calcium 9.3 (8.4-10.6) mg/dL Magnesium 1.7 (1.5-2.6) mg/dL Total Bilirubin 0.8 (0.1-1.5) mg/dL Direct Bilirubin 0.3 (0.0-0.5) mg/dL AST 25 (12-35) U/L ALT 30 (4-50) U/L Alkaline Phosphatase 54 (40-150) U/L C-Reactive Protein 1.2 H (0.5-1.0) mg/dL Total Protein 7.1 (6.0-8.3) g/dL Albumin 4.1 (3.3-5.0) g/dL Urine Color Yellow (Yellow) Urine Appearance Clear (Clear) Urine pH 6.0 (5.0-8.5) Ur Specific [place] 1.020 (1.000-1.030) Urine Protein Negative (Negative) Urine Glucose (UA) Negative (Negative) Urine Ketones 1+ A (Negative) Urine Blood Negative (Negative) Urine Nitrite Negative (Negative) Urine Bilirubin Negative (Negative) Urine Urobilinogen 1.0 (0.2-1.0) Ur Leukocyte Esterase Negative (Negative) Urine RBC 0-2 (0-2) Urine WBC 0-2 (0-5) Ur Squamous Epith Cells Few (None-Few) Urine Bacteria None (None) Urine Opiates Screen Negative (Negative) Ur Oxycodone Screen Negative (Negative) Urine Methadone Screen Negative (Negative) Ur Propoxyphene Screen Negative (Negative) Ur Barbiturates Screen Negative (Negative) U Tricyclic Antidepress Negative (Negative) Ur Phencyclidine Scrn Negative (Negative) Ur Amphetamines Screen Negative (Negative) U Methamphetamines Scrn Negative (Negative) U Benzodiazepines Scrn POSITIVE A* (Negative) Urine Cocaine Screen Negative (Negative) U Marijuana (THC) Screen POSITIVE A* (Negative) Ur Drug Screen Comment See Note Ethyl Alcohol < 0.01 L (0.01-0.03) % SARS-CoV-2 (PCR) Negative SARS-CoV-2 (Negative) Influenza Type A (PCR) Negative PCR FLU A (Negative) Influenza Type B (PCR) Negative PCR FLU B (Negative) RSV (PCR) Negative PCR RSV (Negative) Discharge Plan Discharge Clinical Impression: Elevated blood pressure reading, Headache Patient Disposition: Home w/ Parent or Adult Condition: Improved Additional Instructions: I am happy you are feeling better. Stay well-hydrated. Rest today. Be sure to get quality and regular sleep. Important to get in a little heart pumping exercise daily. Follow-up with [place] [facility] as planned. Prescriptions: No Action lisinopril 10 mg tablet 10 mg PO DAILY Patient Comments: TAKE 1 TABLET BY MOUTH ONCE DAILY Tresiba FlexTouch U-100 100 unit/mL (3 mL) insulin pen 160 unit SUBCUT QPM lorazepam 1 mg tablet 1 mg PO TID PRN glipizide 10 mg tablet extended release 24hr 10 mg PO BIDWM Patient Comments: TAKE 1 TABLET BY MOUTH TWICE DAILY BEFORE MEALS ondansetron 4 mg tablet,disintegrating 4 mg PO TID PRN Patient Comments: DISSOLVE 1 TABLET IN MOUTH EVERY 8 HOURS NEEDED FOR NAUSEA AND VOMITING omeprazole 40 mg capsule,delayed release(DR/EC) Glucagon Emergency Kit (human) 1 mg recon soln Patient Comments: INJECT 1MG DIRECTED EACH TIME IF NEEDED (SYMPTOMATIC HYPOGLYCEMIA LESS THAN 50 AND NOT RESPONDING TO ORAL GLUCOSE ibuprofen Follow Up/Referrals: Gallo Mejia MD [Primary Care Provider] - Stand Alone Forms: [email or web address] Info Instructions
== END 2022-09-11 04:28 | disposition home or self-care (01) ==
PROVIDERS: Emergency Provider Family Medicine; PCP Family Medicine
DX: R51.9 Headache, unspecified (principal); R03.0 Elevated blood-pressure reading, without diagnosis of hypertension
CPT/HCPCS: 36415; 80048; 80076; 80306; 81001; 82077; 83735; 85025; 86140; 87631; 96374; 96375; 99284; J1885; J2060; J2405; J7030

== ENCOUNTER 2022-09-12 12:49 | Emergency (ER) | payer BC, SELFPAY ==
[2022-09-12 13:54] VITALS: BP 154/99; PULSE 103; RESP 16; TEMP 36.2; O2SAT 97; BMI 32.5
[2022-09-12 15:10] VITALS: BP 131/84; PULSE 81; RESP 20; TEMP 36.6; O2SAT 97
--- NOTE | 2022-09-12 15:14 | ED.NURSE ---
rechecked pt's blood pressure, which improved. Pt decided to not be seen and refusal of services signed.
== END 2022-09-12 15:28 | disposition left against medical advice (07) ==
PROVIDERS: Emergency Provider Emergency Medicine; PCP Family Medicine
DX: Z53.21 Procedure and treatment not carried out due to patient leaving prior to being seen by health care provider (principal)

== ENCOUNTER 2023-01-31 06:07 | Emergency (ER) | payer BC, SELFPAY ==
[2023-01-31] VITALS (12 sets, daily range): BP systolic 125–167; BP diastolic 79–132; PULSE 79–93; RESP 16–18; TEMP 36.1–36.7; O2SAT 95–99; BMI 34.0
[2023-01-31] MEDS: KETOROLAC 15 MG/ML inj IVP (07:57)
[2023-01-31] MEDS: 0.9 % SODIUM CHLORIDE 1000 ml 1,000 ML IV (07:57)
[2023-01-31] MEDS: PROCHLORPERAZINE 5 MG/ML VIAL IVP (07:57)
[2023-01-31] MEDS: ACETAMINOPHEN 500 MG TABLET 1000 MG PO (07:57)
--- NOTE | 2023-01-31 08:00 | ED.GENADULT ---
HPI - General Adult General Chief complaint: Headache/Migraine <Lea Colorado MD - Last Filed: 01/31/23 08:19> Stated complaint: migraine <Lea Colorado MD - Last Filed: 01/31/23 08:19> Time Seen by Provider: 01/31/23 06:09 <Lea Colorado MD - Last Filed: 01/31/23 08:19> Source: patient and family <Lea Colorado MD - Last Filed: 01/31/23 08:19> Mode of arrival: ambulatory <Lea Colorado MD - Last Filed: 01/31/23 08:19> Limitations: no limitations <Lea Colorado MD - Last Filed: 01/31/23 08:19> History of Present Illness HPI narrative: 47-year-old male presents the emergency department with a 6 day history of frontal mild dull headache, nonexertional in nature. It is not accompanied by any focal neurological or vision changes. He does have some mild photophobia but no dizziness or vertigo. He does have intermittent issues with seeing spots and flashes of light which is an ongoing issue and has been evaluated by his neurologist. He is not prone to daily headaches. He reports that he actually saw his neurologist on day 2 of the headaches and his neurologist told them that it seemed like this was likely related to a migraine. Patient has not been known to previously have a history of migraines. He was prescribed rizatriptan and he tried taking a dose on the day was prescribed and then twice yesterday with no improvement in his symptoms. He has sporadically used very small doses of Tylenol and ibuprofen with no significant improvement. No fevers, no neck stiffness, no trauma no injury. No visual changes, neurological deficits or blood thinner use. His neurologist also started him on some mirtazapine for sleep and pseudo-seizure issues and he is also taking lacosamide for his seizures per his report. That dose has not recently changed neither have his other medications. He does have a notable history of hypertension but reports that his blood pressures have been well controlled, good compliance with his antihypertensives. No known illness exposures or other systemic symptoms of illness. Past medical history notable for what is reported in our records as pseudoseizures but he just reports a history of seizures. He also has GERD, chronic sleep issues and ief-uplixek-vijypcslu diabetes. He is a nonsmoker. ROS notable for the head symptoms as described above only. Otherwise denies times 12 systems and specifically no neurological changes. <Lea Colorado MD - Last Filed: 01/31/23 08:19> Related Data Home medications: Home Medications Medication Instructions Recorded Confirmed glipizide 10 mg tablet, extended 10 mg PO BIDWM 12/09/21 02/20/22 release 24 hr insulin degludec 100 unit/mL (3 160 unit subcut QPM 12/09/21 02/20/22 mL) subcutaneous pen (Tresiba FlexTouch U-100 insulin) lisinopril 10 mg tablet 10 mg PO DAILY 12/09/21 02/20/22 lorazepam 1 mg tablet 1 mg PO TID PRN 12/09/21 02/20/22 ondansetron 4 mg disintegrating 4 mg PO TID PRN 12/09/21 02/20/22 tablet glucagon 1 mg solution for mg 12/21/21 02/20/22 injection (Glucagon Emergency Kit) ibuprofen 12/21/21 02/20/22 omeprazole 40 mg capsule,delayed mg 12/21/21 02/20/22 release <Lea Colorado MD - Last Filed: 01/31/23 08:19> Allergies/adverse reactions: Allergies Allergy/AdvReac Type Severity Reaction Status Date / Time sulfamethoxazole Allergy Mild Verified 01/31/23 07:00 [From Bactrim] trimethoprim [From Bactrim] Allergy Mild Verified 01/31/23 07:00 clindamycin Allergy Verified 02/20/22 10:16 diphenhydramine Allergy Verified 02/20/22 10:16 dulaglutide Allergy Verified 02/20/22 10:16 erythromycin base Allergy Verified 02/20/22 10:16 Penicillins Allergy Verified 02/20/22 10:16 vancomycin Allergy Verified 02/20/22 10:16 <Lea Colorado MD - Last Filed: 01/31/23 08:19> [facility] Medical History: Medical History Chronic pancreatitis ?K86.1 - Other chronic pancreatitis (ICD-10) Pancreatic insufficiency ?K86.89 - Other specified diseases of pancreas (ICD-10) Diabetes mellitus type 2 in obese ?E11.69 - Type 2 diabetes mellitus with other specified complication (ICD-10) ?E66.9 - Obesity, unspecified (ICD-10) Obesity ?E66.9 - Obesity, unspecified (ICD-10) Anxiety ?F41.9 - Anxiety disorder, unspecified (ICD-10) <Lea Colorado MD - Last Filed: 01/31/23 08:19> Family History: Family History Mother Crohn's disease Autoimmune disease of liver Cirrhosis of liver Father Colon cancer <Lea Colorado MD - Last Filed: 01/31/23 08:19> Social History: Social History Narrative: He lives in [place] with his and 18-year-old daughter. 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 He has been temporarily on disability. He does not smoke, drink alcohol or use recreational drugs. Code status is full. Smoking Status: Never smoker Do you use any of these nicotine containing products: None Second hand tobacco smoke exposure: No How often do you have a drink containing alcohol: never AUDIT-C Alcohol total score: 0 Non-prescribed substance use: marijuana (any form) service: No <Lea Colorado MD - Last Filed: 01/31/23 08:19> Exam Const: Vital Signs, click to edit/add: Vital Signs - 24 hr 01/31/23 06:58 01/31/23 08:05 01/31/23 08:09 Temperature 98.1 F Pulse Rate 88 Pulse Rate [Right Pulse Oximeter] 93 89 Respiratory Rate 18 16 Blood Pressure Blood Pressure [Ri ght Upper Arm] 164/87 H 167/98 H Pulse Oximetry 99 95 95 Oxygen Delivery Me thod Room Air Room Air 01/31/23 08:10 01/31/23 08:15 01/31/23 08:30 Temperature Pulse Rate 89 89 Pulse Rate [Right Pulse Oximeter] Respiratory Rate Blood Pressure 149/132 H Blood Pressure [Ri ght Upper Arm] Pulse Oximetry 97 96 Oxygen Delivery Me thod 01/31/23 08:35 01/31/23 08:45 01/31/23 09:00 Temperature Pulse Rate 88 79 85 Pulse Rate [Right Pulse Oximeter] Respiratory Rate Blood Pressure Blood Pressure [Ri ght Upper Arm] Pulse Oximetry 96 96 97 Oxygen Delivery Me thod 01/31/23 09:04 01/31/23 09:15 01/31/23 09:20 Temperature 97.0 F L Pulse Rate 90 88 Pulse Rate [Right Pulse Oximeter] Respiratory Rate 16 Blood Pressure 125/79 Blood Pressure [Ri ght Upper Arm] Pulse Oximetry 95 96 Oxygen Delivery Me thod <Lea Colorado MD - Last Filed: 01/31/23 08:19> Vital Signs, click to edit/add: Vital Signs - 24 hr 01/31/23 06:58 01/31/23 08:05 01/31/23 08:09 Temperature 98.1 F Pulse Rate 88 Pulse Rate [Right Pulse Oximeter] 93 89 Respiratory Rate 18 16 Blood Pressure Blood Pressure [Ri ght Upper Arm] 164/87 H 167/98 H Pulse Oximetry 99 95 95 Oxygen Delivery Me thod Room Air Room Air 01/31/23 08:10 01/31/23 08:15 01/31/23 08:30 Temperature Pulse Rate 89 89 Pulse Rate [Right Pulse Oximeter] Respiratory Rate Blood Pressure 149/132 H Blood Pressure [Ri ght Upper Arm] Pulse Oximetry 97 96 Oxygen Delivery Me thod 01/31/23 08:35 01/31/23 08:45 01/31/23 09:00 Temperature Pulse Rate 88 79 85 Pulse Rate [Right Pulse Oximeter] Respiratory Rate Blood Pressure Blood Pressure [Ri ght Upper Arm] Pulse Oximetry 96 96 97 Oxygen Delivery Me thod 01/31/23 09:04 01/31/23 09:15 01/31/23 09:20 Temperature 97.0 F L Pulse Rate 90 88 Pulse Rate [Right Pulse Oximeter] Respiratory Rate 16 Blood Pressure 125/79 Blood Pressure [Ri ght Upper Arm] Pulse Oximetry 95 96 Oxygen Delivery Me thod <Dimitry Kinney MD - Last Filed: 01/31/23 09:25> Documenting provider has reviewed patient's vital signs: yes <MD Eva Daniels Last Filed: 01/31/23 08:19> Common normals: no apparent distress and oriented x3 <MD Eva Daniels Last Filed: 01/31/23 08:19> General appearance: cooperative, comfortable and well kempt <MD Eva Daniels Last Filed: 01/31/23 08:19> HENMT: Common normals: normocephalic and head/scalp atraumatic <MD Eva Daniels Last Filed: 01/31/23 08:19> Head and scalp: normocephalic and atraumatic <MD Eva Daniels Last Filed: 01/31/23 08:19> Face and sinus: normal facial exam <MD Eva Daniels Last Filed: 01/31/23 08:19> Mouth: oral and palatal mucosa normal <MD Eva Daniels Last Filed: 01/31/23 08:19> Eye: Common normals: PERRL, EOMs intact bilaterally, conjunctivae normal and normal visual white by confrontation <MD Eva Daniels Last Filed: 01/31/23 08:19> General eye: normal appearance of both eyes <MD Eva Daniels Last Filed: 01/31/23 08:19> Conjunctiva: conjunctiva(e) normal <MD Eva Daniels Last Filed: 01/31/23 08:19> Pupil: PERRL <MD Eva Daniels Last Filed: 01/31/23 08:19> Neck & C-Spine: Common normals: full ROM and no lymphadenopathy <MD Eva Daniels Last Filed: 01/31/23 08:19> Resp: Common normals: normal respiratory effort, no use of accessory muscles and clear to auscultation bilaterally <MD Eva Daniels Last Filed: 01/31/23 08:19> Effort & inspection: able to speak in complete sentences <MD Eva Daniels Last Filed: 01/31/23 08:19> Auscultation: clear to auscultation bilaterally <MD Eva Daniels Last Filed: 01/31/23 08:19> Cardio: Common normals: regular rate, regular rhythm, S1 normal heart sound, S2 normal heart sound and no murmurs <MD Eva Daniels Last Filed: 01/31/23 08:19> Rate: regular rate <MD Eva Daniels Last Filed: 01/31/23 08:19> Rhythm: regular rhythm <MD Eva Daniels Last Filed: 01/31/23 08:19> Heart sounds: S1 normal and S2 normal <MD Eva Daniels Last Filed: 01/31/23 08:19> GI: Common normals: Normal to inspection, nondistended, normoactive bowel sounds present, soft to palpation, non-tender, no hepatosplenomegaly and no masses <MD Eva Daniels Last Filed: 01/31/23 08:19> Palpation: soft and no hepatosplenomegaly <MD Eva Daniels Last Filed: 01/31/23 08:19> Extremity: Common normals: normal to inspection and normal capillary refill <MD Eva Daniels Last Filed: 01/31/23 08:19> Neuro: Common normals: oriented x3, CN's II-XII intact bilaterally, moves all extremities, no focal motor deficits and no sensory deficits noted <MD Eva Daniels Last Filed: 01/31/23 08:19> Speech: speech normal <MD Eva Daniels Last Filed: 01/31/23 08:19> Gait (neuro): normal gait (Observed walking into exam room) <MD Eva Daniels Last Filed: 01/31/23 08:19> Motor exam: strength 5/5 throughout and no pronator drift <MD Eva Daniels Last Filed: 01/31/23 08:19> Psych: Appearance: well kempt <MD Eva Daniels Last Filed: 01/31/23 08:19> Activity/motor behavior: appropriate eye contact <Lea Colorado MD - Last Filed: 01/31/23 08:19> Speech: pressured <Lea Colorado MD - Last Filed: 01/31/23 08:19> Mood and affect: euthymic mood <Lea Colorado MD - Last Filed: 01/31/23 08:19> Insight: insight good <Lea Colorado MD - Last Filed: 01/31/23 08:19> Judgement: judgment good <Lea Colorado MD - Last Filed: 01/31/23 08:19> Skin: Common normals: no rashes or lesions noted <Lea Colorado MD - Last Filed: 01/31/23 08:19> General skin exam: no rashes or lesions noted <Lea Colorado MD - Last Filed: 01/31/23 08:19> Course Course ED Course: Dull headache with no red flags of stroke, infection, trauma, bleed or other worrisome pathology. Suspect related to migraine, viral etiology, his medications or potentially even sleep apnea. I recommended 1 L of IV fluids, 15 mg of IV Toradol and Compazine as he reports a Benadryl allergy. There are no indications to perform blood work. My in coming day shift partner will reassess patient and determine if any further treatment is needed. <Lea Colorado MD - Last Filed: 01/31/23 08:19> Reevaluation(s) Reevaluation #1: Recheck, Dr. Kinney. 8:20 a.m.. Resting in bed. Headache not improve much yet after Toradol and Compazine. Will add repaired all. <Dimitry Kinney MD - Last Filed: 01/31/23 09:25> Reevaluation #2: Recheck-9:00 a.m.. Headache had improved dramatically. Nurses actually had rechecked him and before giving the droperidol he had rib proved. He is feeling better and ready for discharge home. No droperidol was actually given. He had improved after Toradol and Compazine. Headache currently 2/10. He feels like this is tolerable. His plan is to go home and sleep. He is not having any other neurologic symptoms at this time. Reviewed discharge and return precautions. Questions answered. Work note provided. <Dimitry Kinney MD - Last Filed: 01/31/23 09:25> Vital Signs Vital signs: Initial Vital Signs Temperature 98.1 F 01/31/23 06:58 Temperature Source Temporal Artery Scan 01/31/23 06:58 Pulse Rate 93 01/31/23 06:58 Respiratory Rate 18 01/31/23 06:58 Blood Pressure 164/87 H 01/31/23 06:58 Blood Pressure Mean 112 H 01/31/23 06:58 Blood Pressure Position Sitting 01/31/23 06:58 Pulse Oximetry 99 01/31/23 06:58 Oxygen Delivery Method Room Air 01/31/23 06:58 Vital Signs Temperature 98.1 F 01/31/23 06:58 Pulse Rate 93 01/31/23 06:58 Respiratory Rate 18 01/31/23 06:58 Blood Pressure 164/87 H 01/31/23 06:58 Pulse Oximetry 99 01/31/23 06:58 Oxygen Delivery Method Room Air 01/31/23 06:58 Temperature 97.0 F L 01/31/23 09:20 Pulse Rate 88 01/31/23 09:15 Respiratory Rate 16 01/31/23 09:20 Blood Pressure 125/79 01/31/23 09:20 Pulse Oximetry 96 01/31/23 09:15 Oxygen Delivery Method Room Air 01/31/23 08:05 <Lea Colorado MD - Last Filed: 01/31/23 08:19> Initial Vital Signs Temperature 98.1 F 01/31/23 06:58 Temperature Source Temporal Artery Scan 01/31/23 06:58 Pulse Rate 93 01/31/23 06:58 Respiratory Rate 18 01/31/23 06:58 Blood Pressure 164/87 H 01/31/23 06:58 Blood Pressure Mean 112 H 01/31/23 06:58 Blood Pressure Position Sitting 01/31/23 06:58 Pulse Oximetry 99 01/31/23 06:58 Oxygen Delivery Method Room Air 01/31/23 06:58 Vital Signs Temperature 98.1 F 01/31/23 06:58 Pulse Rate 93 01/31/23 06:58 Respiratory Rate 18 01/31/23 06:58 Blood Pressure 164/87 H 01/31/23 06:58 Pulse Oximetry 99 01/31/23 06:58 Oxygen Delivery Method Room Air 01/31/23 06:58 Temperature 97.0 F L 01/31/23 09:20 Pulse Rate 88 01/31/23 09:15 Respiratory Rate 16 01/31/23 09:20 Blood Pressure 125/79 01/31/23 09:20 Pulse Oximetry 96 01/31/23 09:15 Oxygen Delivery Method Room Air 01/31/23 08:05 <Dimitry Kinney MD - Last Filed: 01/31/23 09:25> Discharge Plan Discharge Clinical Impression: Headache <Lea Colorado MD - Last Filed: 01/31/23 08:19> Patient Disposition: Home, Self-Care <Lea Colorado MD - Last Filed: 01/31/23 08:19> Condition: Stable <Lea Colorado MD - Last Filed: 01/31/23 08:19> Instructions: Acute Headache (DC) <Lea Colorado MD - Last Filed: 01/31/23 08:19> Additional Instructions: As we discussed, please come back to the ER right away if you have any concerns especially worsening headache, fever, neck stiffness, or any other new symptoms. <Lea Colorado MD - Last Filed: 01/31/23 08:19> Prescriptions: No Action lisinopril 10 mg tablet 10 mg PO DAILY Patient Comments: TAKE 1 TABLET BY MOUTH ONCE DAILY Tresiba FlexTouch U-100 100 unit/mL (3 mL) insulin pen 160 unit SUBCUT QPM lorazepam 1 mg tablet 1 mg PO TID PRN glipizide 10 mg tablet extended release 24hr 10 mg PO BIDWM Patient Comments: TAKE 1 TABLET BY MOUTH TWICE DAILY BEFORE MEALS ondansetron 4 mg tablet,disintegrating 4 mg PO TID PRN Patient Comments: DISSOLVE 1 TABLET IN MOUTH EVERY 8 HOURS NEEDED FOR NAUSEA AND VOMITING omeprazole 40 mg capsule,delayed release(DR/EC) Glucagon Emergency Kit (human) 1 mg recon soln Patient Comments: INJECT 1MG DIRECTED EACH TIME IF NEEDED (SYMPTOMATIC HYPOGLYCEMIA LESS THAN 50 AND NOT RESPONDING TO ORAL GLUCOSE ibuprofen <Lea Colorado MD - Last Filed: 01/31/23 08:19> Follow Up/Referrals: Gallo Mejia MD [Primary Care Provider] - <Lea Colorado MD - Last Filed: 01/31/23 08:19> Stand Alone Forms: [facility] Info Instructions <Lea Colorado MD - Last Filed: 01/31/23 08:19>
--- NOTE | 2023-01-31 08:57 | ED.NURSE ---
Handbag Framer brought in Droperidol. Fluids were complete. Patient stated he felt better and declined the droperidol. MD notified. Pain at a 3/10 and tolerable and would like to go home.
== END 2023-01-31 09:37 | disposition home or self-care (01) ==
PROVIDERS: Emergency Provider Family Medicine; PCP Family Medicine
DX: R51.9 Headache, unspecified (principal)
CPT/HCPCS: 96374; 96375; 99283; 99284; A9270; J0780; J1885; J7030

== ENCOUNTER 2023-10-25 09:31 | Emergency (ER) | payer OTHER, SELFPAY ==
[2023-10-25] VITALS (10 sets, daily range): BP systolic 104–124; BP diastolic 62–83; PULSE 81–108; RESP 16; TEMP 36.2–36.8; O2SAT 94–97
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
[2023-10-25] MEDS: 0.9 % SODIUM CHLORIDE 1000 ml 1,000 ML 6000 ML IV (10:05)
[2023-10-25] MEDS: MORPHINE 2 MG/ML inj IVP (10:06)
[2023-10-25] MEDS: METOCLOPRAMIDE HCL 10 MG in 0.9 % SODIUM CHLORIDE 100 ml 100 ML 306 MG IV (10:06)
--- OUTSIDE RECORDS SUMMARY | 2023-10-25 10:25 | XMS_ITS | Clinical Summary ---
Author Organization [facility] Address [address] [place] [id number] Care Team Providers Care Syrup Mixer Name Role Phone Christine Marr MD Primary Care Provide r Allergies Active Allergy Reactions Criticality Noted Date Comments Sulfamethoxazole-Trimethoprim Anaphylaxis High 06/13 Angioedema Clindamycin Anaphylaxis High 06/13/2014 Angioedema Diphenhydramine Hives 06/13/2014 Penicillins Anaphylaxis High 10/26/2012 Vancomycin Anaphylaxis High 11/05/2012 Medications Medication Sig Dispensed Refills Start Date End Date Status ASPIRIN NOT PRESCRIBED, INTENTIONAL,Indica tions:Diabetes mellitus, type 2 (H) 1 each continuous prn for other Antiplatelet medication not prescribed intentionally due to 0 each 0 05/30/2014 Active STATIN NOT PRESCRIBED, INTENTIONAL,Indica tions:Diabetes mellitus, type 2 (H) 1 each daily Statin not prescribed intentionally due to Other: 0 each 0 05/30/2014 Active KERA NOT PRESCRIBED, INTENTIONAL,Indica tions:Diabetes mellitus, type 2 (H) 1 each daily KERA Inhibitor not prescribed due to Other: 0 each 0 05/30/2014 Active erythromycin (ROMYCIN) ophthalmic ointmentIndication s:Periorbital cellulitis of left eye Place 1 Application Into the left eye 4 times daily 1 g 0 06/13/2014 Active doxycycline (VIBRA-TABS) 100 MG tabletIndications: Periorbital cellulitis of left eye Take 1 tablet (100 mg) by mouth 2 times daily 14 tablet 0 06/13/2014 Active HYDROcodone-acetam inophen (NORCO) 5-325 MG per tabletIndications: Low back pain Take 1 tablet by mouth every 6 hours as needed for moderate to severe pain 20 tablet 0 06/23/2014 Active Active Problems Problem Noted Date Diagnosed Date Type 2 diabetes mellitus without complication GERD (gastroesophageal reflux disease) 4 CARDIOVASCULAR SCREENING; LDL GOAL LESS THAN 100 11/07/2012 Hyperthyroidism 11/07/2012 MRSA cellulitis Resolved Problems Problem Noted Date Diagnosed Date Resolved Date Diabetes mellitus, type 2; BP Goal <140/90 11/07/2012 06/06/2014 Cellulitis and abscess 10/26/201207/08 Immunizations Name Administration Dates Next Due TDAP (Adacel,Boostrix) 05/15/2008 Family History Medical History Relation Comments Cancer Maternal Grandfather Lung Cancer Autoimmune Disease Maternal Grandmother Autoimmu ne hepatitis Autoimmune Disease Mother autoimmune he p C.A.D. Mother Liver Disease Mother Lupus Mother [...] 0 (1 standard drink = 0.6 oz pur e alcohol) Adolescent Education Answer Date Record ed Getting School Help Needed Not on file 02/03 Sex and Gender Information Value Date Recorded Sex Assigned at Not on file Gender Identity Not on file Sexual Orientation Not on file Last Filed Vital Signs Vital Sign Reading Time Taken Comments Blood Pressure 132/86 06/23/2014 1:43 PM [facility] Pulse 100 06/23/2014 1:43 PM [facility] Temperature 36.7 ??C (98 ??F) 06/23/2014 1:43 PM [facility] Respiratory Rate 20 06/23/2014 1:43 PM [facility] Oxygen Saturation 96% 06/23/2014 1:43 PM [facility] Inhaled Oxygen Concentration - - Weight 115.8 kg (255 lb 5 oz) 06/23/2014 1:43 PM [facility] Height 175.3 cm (5' 9) 06/20/2014 4:01 PM [facility] Body Mass Index 37.7 06/20/2014 4:01 PM [facility] Plan of Treatment Health Maintenance Due Date Last Done Comments ADVANCE CARE PLANNING 1975 ANNUAL REVIEW OF HM ORDERS [address] CT COLONOGRAPHY 1975 EYE EXAM 1975 FLEX SIG 1975 sDNA (Cologuard) 1975 MICROALBUMIN 11/07/2013 11/07/2012 LIPID 07/26/2014 07/26/2013 A1C 07/29/2014 01/29/2014, 07/13, 11/07/2012, Additional history exists FIT 01/10/2015 01/10/2014 DIABETIC FOOT EXAM 05/30/2015 05/30/2014 BMP 06/20/2015 06/20/2014, 12/14, 01/09/2014, Additional history exists Pneumococcal Vaccine: Pediatrics (0 to 5 Years) and At-Risk Patients (6 to 64 Years) (2 of 2 - PCV) 01/14/2021 01/15/2020 YEARLY PREVENTIVE VISIT 01/14/2021 01/15/2020, 11/07 COVID-19 Vaccine ( season) 2023 04/15/2022, 04/16/2021, 09/21/2020, Additional history exists PHQ-2 (once per calendar year) 2023 INFLUENZA VACCINE (Season Ended) 2024 04/11/2022, 04/06/2022, 04/16/2021, Additional history exists COLONOSCOPY 01/18/2024 01/17/2014, 01/17/2014 COLORECTAL CANCER SCREENING 01/18/2024 DTAP/TDAP/TD IMMUNIZATION (5 - Td or Tdap) 07/23/2027 07/22/2017, 09/08/2008, 09/08/2008, Additional history exists HEPATITIS C SCREENING Completed 11/07/2012 HIV SCREENING Completed 11/07/2012 HEPATITIS B IMMUNIZATION Completed 021, 01/15/2020, 10/05/2016 HPV IMMUNIZATION Aged Out No longer e ligible based on patient's age to complete this topic IPV IMMUNIZATION Aged Out No longer e ligible based on patient's age to complete this topic MENINGITIS IMMUNIZATION Aged Out No l onger eligible based on patient's age to complete this topic RSV MONOCLONAL ANTIBODY Aged Out No l onger eligible based on patient's age to complete this topic Procedures Procedure Name Priority Date/Time Associated Diagnosis Comments BASIC METABOLIC PANEL STAT 06/20/2014 4:42 PM [facility] Elevated blood pressure C FOOT EXAM Routine 05/30/2014 1:50 PM [facility] Screening for diabetic peripheral neuropathy HEMOGLOBIN A1C Routine 01/29/2014 2:42 PM CDT Diabetes mellitus, type 2; BP Goal <140/90 COLONOSCOPY Routine 01/17/2014 11:01 AM CDT OCCULT BLOOD STOOL STAT 01/10/2014 5: 35 AM CDT LIPID PROFILE Routine 07/26/2013 12:21 PM CDT DM (diabetes mellitus) (H) ALBUMIN RANDOM URINE QUANTITATIVE Routine 11/07/2012 3:13 PM CDT DM (diabetes mellitus) (H) HIV 1 AND 2 ANTIBODY (QUEST) Routine 11/07/2012 3:12 PM CDT Routine physical examination HEPATITIS C ANTIBODY Routine 11/07/2012 3:12 PM CDT Routine physical examination from Last 3 Months or Most Recently Relevant to Health Maintenance Results * (ABNORMAL) Basic metabolic panel (06/20/2014 4:42 PM [facility]) Sodium 138 133 - 144 mmol/L [facility] Potassium 3.8 3.4 - 5.3 mmol/L [facility] Chloride 102 94 - 109 mmol/L [facility] Carbon Dioxide 28 20 - 32 mmol/L [facility] Anion Gap 8 3 - 14 mmol/L [facility] Glucose 105(H) 70 - 99 mg/dL [facility] Comment: Effective 12/11/2013, the reference range for this assay has changed to reflect new instrumentation/methodology. Urea Nitrogen 16 7 - 30 mg/dL [facility] Comment: Effective 12/11/2013, the reference range for this assay has changed to reflect new instrumentation/methodology. Creatinine 1.01 0.66 - 1.25 mg/dL [facility] GFR Estimate 83 >60 mL/min/1. 7m2 [facility] Comment:Non GFR Calc GFR Estimate If Black >90 GFR Calc >60 mL/min/1. 7m2 [facility] Calcium 9.5 8.5 - 10.1 mg/dL [facility] Comment: Effective 12/11/2013, the reference range for this assay has changed to reflect new instrumentation/methodology. Blood specimen (specimen) 06/20/2014 4:42 PM [facility] 06/20/2014 4:53 PM [facility] Karel Mendiola APRN, CNP LAB - BLOOD ORD ERABLES [facility] [address] [place] [address] * Hemoglobin A1c (01/29/2014 2:42 PM CDT) Hemoglobin A1C 5.9 4.3 - 6.0 % [facility] Blood specimen (specimen) 01/29/2014 2:42 PM CDT 01/29/2014 2:44 PM CDT Christine Marr MD LAB - BLOOD O RDERABLES Performing Organization Address City/[facility]/ZIP Co de Phone Number [address] [phone] * COLONOSCOPY (01/17/2014 11:01 AM CDT) COLONOSCOPY [facility] Patient Name: Kaiden Reyna ? Procedure Date: 01/17/2014 11:01:32 AM ? Date of : 1975 ? Admit Type: Outpatient ? Age: 38 ? Gender: Male ? Attending MD: Prashanth Cedeno MD ? Procedure: ?Colonoscopy Indications: ?Screening in patient at increased risk: Colorectal ?cancer in father before age 60 Providers: ?Prashanth Aj MD Referring [...] ?normal, healthy patient. After reviewing the risks ?and benefits, the patient was deemed in ?satisfactory [...] ?oxygen saturations were monitored continuously. The ?[id number] was introduced through the anus ?and advanced to the cecum, identified by ?appendiceal orifice & ileocecal valve. The ?colonoscopy was performed without difficulty. The ?patient tolerated the procedure well. The quality ?of the bowel preparation was good. ? Findings: ? The perianal and digital rectal examinations were normal. The entire ? examined colon appeared normal on direct and retroflexion views. ? Impression: ? - The entire examined colon is normal on direct and ?retroflexion views. Recommendation: ? - Repeat colonoscopy in 5 years for surveillance. ?Elevate head of bed 6 inches off the ground. ? Electronically signed by Prashanth Aj MD __ Prashanth Aj MD Signed Date: 01/17/2014 11:30:37 AM Number of Addenda: 0 I was physically present for the entire viewing portion of the exam. Note Initiated On: 01/17/2014 11:01:32 AM Scope Withdrawal Time: 0 hours 6 minutes 30 seconds Scope Withdrawal Time: 0 hours 6 minutes 30 seconds Total Procedure Duration: 0 hours 11 minutes 35 seconds Total Procedure Duration: 0 hours 11 minutes 35 seconds RADIOLOGY RESULTS 01/17/2014 11:0 1 AM CDT Christine Marr MD PROCEDURES RADIOLOGY RESULTS * Stool: occult blood (01/10/2014 5:35 AM CDT) Occult Blood Negative NEG [facility] Stool specimen (specimen) 01/10/2014 5:35 AM CDT 01/10/2014 7:01 AM CDT Ethan Barksdale MD LAB - STOOLS ORDERA SANDRAS Performing Organization Address City/[facility]/ZIP Co de Phone Number [facility] * (ABNORMAL) Lipid Profile (Chol, Trig, HDL, LDL calc) (07/26/2013 12:21 PM CDT) Cholesterol 158 <200 mg/dL [facility] Comment: LDL Cholesterol is the primary guide to therapy. The NCEP recommends further evaluation of: patients with cholesterol greater than 200 mg/dL if additional risk factors are present, cholesterol greater than 240 mg/dL, triglycerides greater than 150 mg/dL, or HDL less than 40 mg/dL. Triglycerides 88 0 - 150 mg/dL [facility] HDL Cholesterol 33(L) >40 mg/dL [facility] LDL Cholesterol Calculated 108 0 - 129 mg/dL [facility] Comment: LDL Cholesterol is the primary guide to therapy: LDL-cholesterol goal in high risk patients is <100 mg/dL and in very high risk patients is <70 mg/dL. VLDL-Cholesterol 18 0 - 30 mg/dL [facility] Cholesterol/HDL Ratio 4.9 0.0 - 5.0 [facility] Blood specimen (specimen) 07/26/2013 12:21 PM CDT 07/26/2013 12:24 PM CDT Jensen Melendez MD LAB - BLOOD ORD ERABLES Performing Organization Address City/[facility]/ZIP Co de Phone Number [facility] [address] [place], [place] [phone] * Microalbumin quantitative, random urine (11/07/2012 3:13 PM CDT) Creatinine Urine 178 mg/dL [facility] Albumin Urine mg/L <5 Urine Microalbumin lowest reportable value has been changed from 2 mg/L to 5 mg/L due to a methodology change on August. mg/L [facility] Albumin Urine mg/g Cr Unable to calculate 0 - 17 mg/g Cr [facility] Urine specimen (specimen) 11/07/2012 3:13 PM CDT 11/07/2012 3:16 PM CDT Jensen Melendez MD LAB - URINE ORD ERABLES [facility] * HIV 1 and 2 Antibody (11/07/2012 3:12 PM CDT) HIV 1&2 Antibody Negative [facility]G [facility] Blood specimen (specimen) 11/07/2012 3:12 PM CDT 11/07/2012 3:15 PM CDT Jensen Melendez MD LAB - BLOOD ORD ERABLES [facility] * Hepatitis C antibody (11/07/2012 3:12 PM CDT) Hepatitis C Antibody Negative [facility]G [facility] Blood specimen (specimen) 11/07/2012 3:12 PM CDT 11/07/2012 3:15 PM CDT Jensen Melendez MD LAB - BLOOD ORD ERABLES [facility] from Last 3 Months or Most Recently Relevant to Health Maintenance Additional Health Concerns Infection Onset Date Last Indicated MRSA-Contact Isolation Comment:Skin 12-25-2012 01/02/2013 01/02/2013 Advance Directives For more information, please contact: [phone] * Full Code (Latest Code Status on File) Date Activated Date Inactivated Comments 10/28/2012 8:54 AM * Full Code Date Activated Date Inactivated Comments 10/26/2012 5:12 AM 10/28/2012 8:54 AM Care Teams Syrup Mixer Relationship Specialty Start Date End Date Christine Marr MD PCP - General Pediatrics 01/14/14
--- OUTSIDE RECORDS SUMMARY | 2023-10-25 10:25 | XMS_ITS | Referral Summary ---
Author Organization [facility] Address [address] [place] [address] Care Team Providers Care Cargo Service Agent Name Role Phone Elsewhere, Pcp Primary Care Provider Unavailabl e Source Comments Patient records contain information from all sites at [facility]. For routine questions regarding patient records, call [phone] during business hours, M-F 8:00 AM - 5:00 PM Central Time. Record requests for emergency care only can be directed to [phone] at any time.[facility] Active Problems Problem Noted Date Diagnosed Date Hypertension Essential Primary 09/13/2022 Immunizations Name Administration Dates Next Due DTaP / Hib 09/08/2008 Social History Tobacco Use Types Packs/Day Years Used Date Smoking Tobacco: Never Nutrition Answer Date Recorded Nutrition: EVOO Fat Source Unknown 09/13 Nutrition: Servings of Fruits/Vegetables per Day Not on file 09/13/2022 Dental Answer Date Recorded Dental: Regular Dentist Unknown 09/14/19 Sex and Gender Information Value Date Recorded Sex Assigned at Not on file Gender Identity Not on file Sexual Orientation Not on file Last Filed Vital Signs Vital Sign Reading Time Taken Comments Blood Pressure 152/97 09/13/2022 10:10 PM CDT Pulse 99 09/13/2022 10:10 PM CDT Temperature 36.8 ??C (98.2 ??F) 09/13/2022 8:48 PM CD T Respiratory Rate 18 09/13/2022 10:10 PM CDT Oxygen Saturation 98% 09/13/2022 10:10 PM CDT Inhaled Oxygen Concentration - - Weight 117 kg (257 lb 8 oz) 04/19/2015 12:23 PM HOSPICE CLINICAL SUPERVISOR Height - - Body Mass Index - - Plan of Treatment Not on file Procedures Procedure Name Priority Date/Time Associated Diagnosis Comments EXTI BASIC METABOLIC PANEL, S/P Routine 09/14/2022 8:28 AM CDT EXTI LIPID PANEL W REFLEX MEASURED LDL Routine 02/22/2022 8:43 AM CDT from Last 3 Months or Most Recently Relevant to Health Maintenance Care Teams Cargo Service Agent Relationship Specialty Start Date End Date Elsewhere, Pcp PCP - General Internal Medicine 09/13/22
--- OUTSIDE RECORDS SUMMARY | 2023-10-25 10:25 | XMS_ITS | Encounter Summary ---
Author Organization [facility] Address [address] [place] [address]. [place] [address] Care Team Providers Care Nut Sheller Name Role Phone Jensen Melendez MD Primary Care Provider Christine Marr MD Primary Care Provide r Reason for Visit * Reason Onset Date Comments Panel Management 01/31/2013 Encounter Details Date Type Department Care Team (Late st Contact Info) Description 01/31/[address] [address] Jensen Melendez MD [facility] [address] [place] [address] [phone] Panel Management Social History Tobacco Use Types Packs/Day Years Used Date Smoking Tobacco: Never Smokeless Tobacco: Never Alcohol Use Standard Drinks/Week Comments No 0 (1 standard drink = 0.6 oz pur e alcohol) Sex and Gender Information Value Date Recorded Sex Assigned at Not on file Gender Identity Not on file Sexual Orientation Not on file documented as of this encounter Miscellaneous Notes * Telephone Encounter - Annabelle Allison - 01/31/2013 9:22 AM CDT Panel Management Review Date of last visit with a [facility] provider: Al on 01/02/13. Date of next visit with a [facility] provider: None. Problem List Patient Active Problem List Diagnosis ??? Cellulitis and abscess ??? CARDIOVASCULAR SCREENING; LDL GOAL LESS THAN 100 ??? Hyperthyroidism ??? Diabetes mellitus, type 2 Health Maintenance List Health Maintenance Topic Date Due ??? Tetanus Immunization ( [facility] Assigned) 1989 ??? Lipid Screen Q5 Yr [...] this encounter Plan of Treatment Not on file documented as of this encounter Visit Diagnoses Not on filedocumented in this encounter Additional Health Concerns Infection Onset Date Last Indicated Resolved Time MRSA-Contact Isolation Comment:Skin 12-25-2012 01/02/2013 01/02/2013 documented as of this encounter Care Teams Nut Sheller Relationship Specialty Start Date End Date Jensen Melendez MD PCP - General Student in organized health care education/training program 10/31/12 01/13/14 Christine Marr MD PCP - General Pediatrics 01/14/14 documented as of this encounter
--- OUTSIDE RECORDS SUMMARY | 2023-10-25 10:25 | XMS_ITS | Referral Summary ---
Author Organization [facility] Address [address] [place] [id number] Care Team Providers Care Monument Installer Name Role Phone Christine Marr MD Primary [...] Administration Dates Next Due TDAP (Adacel,Boostrix) 05/15/2008 Social History Tobacco Use Types Packs/Day Years [...] Comments Blood Pressure 132/86 06/23/2014 1:43 PM STRETCHING MACHINE OPERATOR Pulse 100 06/23/2014 1:43 PM STRETCHING MACHINE OPERATOR Temperature 36.7 ??C (98 ??F) 06/23/2014 1:43 PM STRETCHING MACHINE OPERATOR Respiratory Rate 20 06/23/2014 1:43 PM STRETCHING MACHINE OPERATOR Oxygen Saturation 96% 06/23/2014 1:43 PM STRETCHING MACHINE OPERATOR Inhaled Oxygen Concentration - - Weight 115.8 kg (255 lb 5 oz) 06/23/2014 1:43 PM STRETCHING MACHINE OPERATOR Height 175.3 cm (5' 9) 06/20/2014 4:01 PM STRETCHING MACHINE OPERATOR Body Mass Index 37.7 06/20/2014 4:01 PM STRETCHING MACHINE OPERATOR Plan of Treatment Not on file Procedures Procedure Name Priority Date/Time Associated Diagnosis Comments BASIC METABOLIC PANEL STAT 06/20/2014 4:42 PM STRETCHING MACHINE OPERATOR Elevated blood pressure C FOOT EXAM Routine 05/30/2014 1:50 PM STRETCHING MACHINE OPERATOR Screening for diabetic peripheral neuropathy HEMOGLOBIN A1C [...] (ABNORMAL) Basic metabolic panel (06/20/2014 4:42 PM STRETCHING MACHINE OPERATOR) Sodium 138 133 - 144 mmol/L [facility] Potassium 3.8 3.4 - 5.3 mmol/L [facility] Chloride 102 94 - 109 mmol/L [facility] Carbon Dioxide 28 20 - 32 mmol/L [facility] Anion Gap 8 3 - 14 mmol/L [facility] Glucose 105(H) 70 - 99 mg/dL [facility] Comment: Effective 12/11/2013, the reference range for this assay has changed to reflect new instrumentation/methodology. Urea Nitrogen 16 7 - 30 mg/dL [facility] Comment: Effective 12/11/2013, the reference range for this assay has changed to reflect new instrumentation/methodology. Creatinine 1.01 0.66 - 1.25 mg/dL [facility] GFR Estimate 83 >60 mL/min/1. 7m2 [facility] Comment:Non GFR Calc GFR Estimate If Black >90 GFR Calc >60 mL/min/1. 7m2 [facility] Calcium 9.5 8.5 - 10.1 mg/dL [facility] Comment: Effective 12/11/2013, the reference range for this assay has changed to reflect new instrumentation/methodology. Blood specimen (specimen) 06/20/2014 4:42 PM STRETCHING MACHINE OPERATOR 06/20/2014 4:53 PM STRETCHING MACHINE OPERATOR Karel Mendiola APRN, CNP LAB - BLOOD ORD ERABLES Performing Organization Address City/[facility]/ZIP Co de Phone Number [facility] [address] [place] [address] * Hemoglobin A1c (01/29/2014 2:42 PM CDT) Hemoglobin A1C 5.9 4.3 - 6.0 % [facility] Blood specimen (specimen) 01/29/2014 2:42 PM CDT 01/29/2014 2:44 PM CDT Christine Marr MD LAB - BLOOD O RDERABLES Performing Organization Address City/[facility] Co de Phone Number [facility] [address] [place] [address] * COLONOSCOPY (01/17/2014 11:01 AM CDT) COLONOSCOPY [facility] Patient Name: Kaiden Reyna ? Procedure Date: [...] ?oxygen saturations were monitored continuously. The ?[id number] was introduced through the anus ?and advanced [...] 1 AM CDT Christine Marr MD PROCEDURES Performing Organization Address City/[facility]/ZIP Co de Phone Number RADIOLOGY RESULTS * Stool: occult blood (01/10/2014 5:35 AM CDT) Occult Blood Negative [facility] Stool specimen (specimen) 01/10/2014 5:35 AM CDT 01/10/2014 7:01 AM CDT Ethan Barksdale MD LAB - STOOLS MARTA JEAN Performing Organization Address [facility]/ZIP Co de Phone Number [facility] * (ABNORMAL) Lipid Profile (Chol, Trig, HDL, LDL calc) (07/26/2013 12:21 PM CDT) Cholesterol 158 <200 mg/dL [facility] MARGIE GARRISON Comment: LDL Cholesterol is the primary guide to therapy. The NCEP recommends further evaluation of: patients with cholesterol greater than 200 mg/dL if additional risk factors are present, cholesterol greater than 240 mg/dL, triglycerides greater than 150 mg/dL, or HDL less than 40 mg/dL. Triglycerides 88 0 - 150 mg/dL [facility] HDL Cholesterol 33(L) >40 mg/dL [facility] LDL Cholesterol Calculated 108 0 - 129 mg/dL [facility] Comment: LDL Cholesterol is the primary guide to therapy: LDL-cholesterol goal in high risk patients is <100 mg/dL and in very high risk patients is <70 mg/dL. VLDL-Cholesterol 18 0 - 30 mg/dL [facility] Cholesterol/HDL Ratio 4.9 0.0 - 5.0 [facility] Blood specimen (specimen) 07/26/2013 12:21 PM CDT 07/26/2013 12:24 PM CDT Jensen Melendez MD LAB - BLOOD ORD ERABLES Performing Organization Address City/[facility]/[place] [address] * Microalbumin quantitative, random urine (11/07/2012 3:13 PM CDT) Creatinine Urine 178 mg/dL [facility] Albumin Urine mg/L <5 Urine Microalbumin lowest reportable value has been changed from 2 mg/L to 5 mg/L due to a methodology change on August. mg/L [facility] Albumin Urine mg/g Cr Unable to calculate 0 - 17 mg/g Cr [facility] Urine specimen (specimen) 11/07/2012 3:13 PM CDT 11/07/2012 3:16 PM CDT Jensen Melendez MD LAB - URINE ORD ERABLES [facility] * HIV 1 and 2 Antibody (11/07/2012 3:12 PM CDT) HIV 1&2 Antibody Negative [facility] Blood specimen (specimen) 11/07/2012 3:12 PM CDT 11/07/2012 3:15 PM CDT Jensen Melendez MD LAB - BLOOD ORD ERABLES [facility] * Hepatitis C antibody (11/07/2012 3:12 PM CDT) Hepatitis C Antibody Negative [facility] Blood specimen (specimen) 11/07/2012 3:12 PM CDT 11/07/2012 3:15 PM CDT Jensen Melendez MD LAB - BLOOD ORD ERABLES [facility] from Last 3 Months or Most Recently Relevant to Health Maintenance Additional Health Concerns Infection Onset Date Last Indicated MRSA-Contact Isolation Comment:Skin 12-25-2012 01/02/2013 01/02/2013 Advance Directives For more information, please contact: [phone] * Full Code (Latest Code Status on File) Date Activated Date Inactivated Comments 10/28/2012 8:54 AM * Full Code Date Activated Date Inactivated Comments 10/26/2012 5:12 AM 10/28/2012 8:54 AM Care Teams Monument Installer Relationship Specialty Start Date End Date Christine Marr MD PCP - General Pediatrics 01/14/14
--- OUTSIDE RECORDS SUMMARY | 2023-10-25 10:25 | XMS_ITS | Clinical Summary ---
Author Organization [facility] Address [address] [place] [address] Care Team Providers Care Program Director/Air Personality Name Role Phone Elsewhere, Pcp Primary Care Provider Unavailabl e Source Comments Patient records contain information from all sites at [facility]. For routine questions regarding patient records, call [phone] during business hours, M-F 8:00 AM - 5:00 PM Central Time. Record requests for emergency care only can be directed to [phone] at any time.[facility] Active Problems Problem Noted Date Diagnosed Date [...] (257 lb 8 oz) 04/19/2015 12:23 PM FILM SORTER Height - - Body Mass Index - - Plan of Treatment Health Maintenance Due Date Last Done Comments CT Colonography 1977 Cologuard 1977 Colonoscopy 1977 Colorectal Cancer Screening 1977 FIT 1977 HIV Screening 1977 Hepatitis C Screening 1977 Office Visit for Blood Pressure Check / Re-check 1977 COVID-19 Vaccine (2022- season) 2023 04/15/2022, 04/16/2021, 09/21/2020, Additional history exists Influenza Vaccine (#1) 2023 , 04/06/2022, 04/16/2021, Additional history exists Depression Screening (Annual PHQ-2) 05/15/2023 Fasting Glucose for Diabetes Screening 09/14/2025 09/14/2022, 09/13/2022, 07/11/2022, Additional history exists Lipid (Cholesterol) Screening 02/22/2027 02/22/2022, 04/01/2021, 01/15/2020, Additional history exists DTaP,Tdap,and Td Vaccines (4 - Td or Tdap) 07/23/2027 07/22/2017, 09/08/2008, 09/08/2008, Additional history exists Hepatitis B Vaccines Completed 11/16/2020, 01/15/2020, 10/05/2016 Pneumococcal vaccine (0-64 years) Aged Out 11/02/2022, 01/15/2020 No longer eligibl e based on patient's age to complete this topic Procedures Procedure Name Priority Date/Time Associated Diagnosis Comments EXTI BASIC METABOLIC PANEL, S/P Routine 09/14/2022 8:28 AM CDT EXTI LIPID PANEL W REFLEX MEASURED LDL Routine 02/22/2022 8:43 AM CDT from Last 3 Months or Most Recently Relevant to Health Maintenance Care Teams Program Director/Air Personality Relationship Specialty Start Date End Date Elsewhere, Pcp PCP - General Internal Medicine 09/13/22
--- OUTSIDE RECORDS SUMMARY | 2023-10-25 10:25 | XMS_ITS | Encounter Summary ---
Author Organization [facility] Address [address] [place] [address]. [place] [address] Care Team Providers Care Pricing Coordinator Name Role Phone hCristine Marr MD Primary Care Provide r Encounter Details Date Type Department Care Team (Late st Contact Info) Description 06/18/2015 My[facility] Medical Advice [address] [address] [place]ri [place], [facility] Social History Tobacco Use Types Packs/Day Years [...] documented as of this encounter Care Teams Pricing Coordinator Relationship Specialty Start Date End Date Christine Marr MD PCP - General Pediatrics 01/14/14 documented as of this encounter
--- OUTSIDE RECORDS SUMMARY | 2023-10-25 10:25 | XMS_ITS ---
Author Organization [facility] Address [address] [place] [address] Care Team Providers Care Derrick Builder Name Role Phone Unavailable Unavailable Unavailable Surgery Details Not on file Complications Check Surgery Details section. Procedure Estimated Blood Loss Check Surgery Details section. Procedure Findings Check Surgery Details section. Procedure Specimens Taken Check Surgery Details section.
[2023-10-25 10:31] LABS: Chloride* 104 mmol/L (96-114); Potassium* 4.2 mmol/L (3.6-5.1); Sodium* 138 mmol/L (135-149)
[2023-10-25 10:34] LABS: Anion Gap 6 mEq/L (7-15); Carbon Dioxide* 28 mmol/L (20-32); Creatinine* 0.8 mg/dL (0.5-1.5); Estimated Glomerular Filt Rate 111 ml/min
[2023-10-25 10:35] LABS: Blood Urea Nitrogen* 18 mg/dL (5-24); Glucose* 191 mg/dL (60-115)
[2023-10-25 12:13] LABS: Basophils Absolute Auto 0.02 K/uL (0.00-0.30); Basophils Percent Auto 0.3 % (0.0-3.0); Eosinophils Absolute Auto 0.21 K/uL (0.00-0.50); Eosinophils Percent Auto 3.1 % (0.0-7.0); Hematocrit 42.2 % (37.0-53.0); Hemoglobin* 14.3 gm/dL (13.5-17.5); Immature Granulocytes Abs Auto 0.01 K/uL (0.00-0.30); Immature Granulocytes Pct Auto 0.1 %; Lymphocytes Absolute Auto 1.35 K/uL (0.90-2.90); Mean Corpuscular HGB Conc 34 gm/dL (32-36); Mean Corpuscular Hemoglobin 30 pg (26-34); Mean Corpuscular Volume 88 fL (80-100); Monocytes Percent Auto 7.9 % (0.0-11.0); Neutrophils Absolute Auto 4.62 K/uL (1.7-7.0); Neutrophils Percent Auto 68.6 % (42.0-72.0); Platelet Count* 165 K/uL (140-440); RDW Coefficient of Variation % 12.1 % (11.5-15.5); Red Blood Count 4.82 m/uL (4.30-5.90); White Blood Count* 6.74 K/uL (4.50-11.00)
[2023-10-25 12:18] LABS: Slide Review Reflex No
== END 2023-10-25 11:10 | disposition home or self-care (01) ==
PROVIDERS: Emergency Provider Family Medicine; PCP Family Medicine
DX: R51.9 Headache, unspecified (principal); V49.88XA Car occupant (driver) (passenger) injured in other specified transport accidents, initial encounter
CPT/HCPCS: 36415; 70450; 80048; 85025; 96374; 99284; J2270; J2765; J7030

== ENCOUNTER 2024-05-01 14:29 | Emergency (ER) | payer OTHER, SELFPAY ==
[2024-05-01 14:35] VITALS: BP 133/85; PULSE 70; RESP 14; TEMP 36.2; O2SAT 98; BMI 32.8
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
--- NOTE | 2024-05-01 17:31 | CRLHL7_ITS ---
For Patients: As a result of the Century Cures Act, medical imaging exams and procedure reports are released immediately into your electronic medical record. You may view this report before your referring provider. If you have questions, please contact your health care provider. INDICATION: Fall. TECHNIQUE: CT of the head without contrast. Coronal and sagittal reformats are included. COMPARISON: Head CT from 09/06/2022. FINDINGS: No acute intracranial hemorrhage. No mass effect or midline shift. No hydrocephalus or extra-axial collections. White matter is within normal limits for age. No acute osseous abnormalities. Mastoid air cells and paranasal sinuses are clear. Normal soft tissues. IMPRESSION: IMPRESSION: 1. No acute intracranial abnormalities. Please note that all CT scans at this facility use dose modulation, iterative reconstruction, and/or weight-based dosing when appropriate to reduce radiation dose to as low as reasonably achievable. Dictated by Drew Santiago MD @ 05/01/2024 6:25:14 PM (Electronically Signed)
[2024-05-01 18:32] LABS: Chloride* 99 mmol/L (96-114); Potassium* 4.2 mmol/L (3.6-5.1); Sodium* 135 mmol/L (135-149)
[2024-05-01 18:34] LABS: Creatinine* 0.7 mg/dL (0.5-1.5); Est. Creatinine Clearance* 131.86; Estimated Glomerular Filt Rate 115 ml/min
[2024-05-01 18:35] LABS: Anion Gap 10 mEq/L (7-15); Blood Urea Nitrogen* 18 mg/dL (5-24); Calcium* 9.7 mg/dL (8.4-10.6); Carbon Dioxide* 26 mmol/L (20-32); Glucose* 308 mg/dL (60-115); Magnesium* 2.1 mg/dL (1.5-2.6)
== END 2024-05-01 19:06 | disposition home or self-care (01) ==
PROVIDERS: Emergency Provider Family Medicine; PCP Family Medicine
DX: S06.0X0A Concussion without loss of consciousness, initial encounter (principal); E11.65 Type 2 diabetes mellitus with hyperglycemia
CPT/HCPCS: 36415; 70450; 80048; 83735; 84484; 99284

== ENCOUNTER 2024-10-21 07:53 | Emergency (ER) | payer OTHER, SELFPAY ==
--- OUTSIDE RECORDS SUMMARY | 2024-10-21 07:55 | XMS_ITS | Clinical Summary ---
Author Organization [facility] Address [address] [place] [id number] Care Team Providers Care Physician Office Assistant Name Role Phone Christine Marr MD Primary Care Provide r Allergies Active Allergy Reactions Criticality Noted Date Comments Sulfamethoxazole-Trimethoprim Anaphylaxis High 06/13 Angioedema Clindamycin Anaphylaxis High 06/13/2014 Angioedema Diphenhydramine Hives 06/13/2014 Penicillins Anaphylaxis High 10/26/2012 Vancomycin Anaphylaxis High 11/05/2012 Medications ASPIRIN NOT PRESCRIBED, INTENTIONAL,In dications:Diab etes mellitus, type 2 (H) 1 each continuous prn for other Antiplatelet medication not prescribed intentionally due to 0 each 0 5 Active STATIN NOT PRESCRIBED, INTENTIONAL,In dications:Diab etes mellitus, type 2 (H) 1 each daily Statin not prescribed intentionally due to Other: 0 each 0 5 Active KERA NOT PRESCRIBED, INTENTIONAL,In dications:Diab etes mellitus, type 2 (H) 1 each daily KERA Inhibitor not prescribed due to Other: 0 each 0 5 Active erythromycin (ROMYCIN) ophthalmic ointmentIndica tions:Periorbi gabe cellulitis of left eye Place 1 Application Into the left eye 4 times daily 1 g 0 5 Active doxycycline (VIBRA-TABS) 100 MG tabletIndicati ons:Periorbita l cellulitis of left eye Take 1 tablet (100 mg) by mouth 2 times daily 14 tablet 0 5 Active HYDROcodone-ac etaminophen (NORCO) 5-325 MG per tabletIndicati ons:Low back pain Take 1 tablet by mouth every 6 hours as needed for moderate to severe pain 20 tablet 0 5 Active Active Problems Problem Noted Date Diagnosed Date Type 2 diabetes mellitus without complication GERD (gastroesophageal reflux disease) 4 CARDIOVASCULAR SCREENING; LDL GOAL LESS THAN 100 11/07/2012 Hyperthyroidism 11/07/2012 MRSA cellulitis Resolved Problems Problem Noted Date Diagnosed Date Resolved Date Diabetes mellitus, type 2; BP Goal <140/90 11/07/2012 06/06/2014 Cellulitis and abscess 10/26/201207/08 Immunizations Immunization Administration Dates Next Due TDAP (Adacel,Boostrix) 05/15/2008 [...] Recorded Sex Assigned at Not on file Legal Sex Male 1:43 AM CDT Gender Identity Not on file Sexual Orientation Not on file Occupation Industry Job Start Date Job End Date Not on file Not on file Not on file Not on file Last Filed Vital Signs Vital Sign Reading Time Taken Comments Blood Pressure 132/86 06/23/2014 1:43 PM EVALUATION ANALYST Pulse 100 06/23/2014 1:43 PM EVALUATION ANALYST Temperature 36.7 C (98 F) 06/23/2014 1:43 PM EVALUATION ANALYST Respiratory Rate 20 06/23/2014 1:43 PM EVALUATION ANALYST Oxygen Saturation 96% 06/23/2014 1:43 PM EVALUATION ANALYST Inhaled Oxygen Concentration - - Weight 115.8 kg (255 lb 5 oz) 06/23/2014 1:43 PM EVALUATION ANALYST Height 175.3 cm (5' 9) 06/20/2014 4:01 PM EVALUATION ANALYST Body Mass Index 37.7 06/20/2014 4:01 PM EVALUATION ANALYST Plan of Treatment Health Maintenance Due Date Last Done Comments ADVANCE CARE PLANNING 1975 ANNUAL REVIEW OF HM ORDERS 1975 CT COLONOGRAPHY 1975 EYE EXAM 1975 FLEX SIG 1975 sDNA (Cologuard) 1975 MICROALBUMIN 11/07/2013 11/07/2012 LIPID 07/26/2014 07/26/2013 A1C 07/29/2014 01/29/2014, 07/13, 11/07/2012, Additional history exists FIT 01/10/2015 01/10/2014 DIABETIC FOOT EXAM 05/30/2015 05/30/2014 BMP 06/20/2015 06/20/2014, 12/14, 01/09/2014, Additional history exists PNEUMOCOCCAL VACCINE: PEDIATRICS (0 to 5 YEARS) AND AT-RISK PATIENTS (6 to 49 YEARS) (2 of 2 - PCV) 01/14/2021 01/15/2020 YEARLY PREVENTIVE VISIT 01/14/2021 01/15/2020, 11/07 COVID-19 VACCINE ( season) 2024 04/15/2022, 04/16/2021, 09/21/2020, Additional history exists COLONOSCOPY 01/18/2024 01/17/2014, 01/17/2014 COLORECTAL CANCER SCREENING 01/18/2024 PHQ-2 (once per calendar year) 2024 INFLUENZA VACCINE (Season Ended) 2025 04/11/2022, 04/06/2022, 04/16/2021, Additional history exists ZOSTER VACCINE (1 of 2) 2027 DTAP/TDAP/TD VACCINE (5 - Td or Tdap) 07/23/2027 07/22/2017, 09/08/2008, 09/08/2008, Additional history exists HEPATITIS C SCREENING Completed 11/07/2012 HIV SCREENING Completed 11/07/2012 HEPATITIS B VACCINE Completed 11/16/2020, 01/15/2020, 10/05/2016 HPV VACCINE Aged Out No longer eligi ble based on patient's age to complete this topic MENINGITIS VACCINE Aged Out No longer eligible based on patient's age to complete this topic Procedures Procedure Name Priority Date/Time Associated Diagnosis Comments BASIC METABOLIC PANEL STAT 06/20/2014 4:42 PM EVALUATION ANALYST Elevated blood pressure C FOOT EXAM Routine 05/30/2014 1:50 PM EVALUATION ANALYST Screening for diabetic peripheral neuropathy HEMOGLOBIN A1C [...] (ABNORMAL) Basic metabolic panel (06/20/2014 4:42 PM EVALUATION ANALYST) Sodium 138 133 - 144 mmol/L [facility] Potassium 3.8 3.4 - 5.3 mmol/L [facility] Chloride 102 94 - 109 mmol/L [facility] Carbon Dioxide 28 20 - 32 mmol/L [facility] Anion Gap 8 3 - 14 mmol/L [facility] Glucose 105(H) 70 - 99 mg/dL [facility] Comment: Effective 12/11/2013, the reference range for this assay has changed to reflect new instrumentation/methodology. Urea Nitrogen 16 7 - 30 mg/dL [facility] Comment: Effective 12/11/2013, the reference range for this assay has changed to reflect new instrumentation/methodology. Creatinine 1.01 0.66 - 1.25 mg/dL [facility] GFR Estimate 83 >60 mL/min/1. 7m2 [facility] Comment:Non GFR Calc GFR Estimate If Black >90 GFR Calc >60 mL/min/1. 7m2 [facility] Calcium 9.5 8.5 - 10.1 mg/dL [facility] Comment: Effective 12/11/2013, the reference range for this assay has changed to reflect new instrumentation/methodology. Blood specimen (specimen) 06/20/2014 4:42 PM EVALUATION ANALYST 06/20/2014 4:53 PM EVALUATION ANALYST us Karel Mendiola APRN, CNP LAB - BLOOD ORDERABLES Final Result [facility] [address] [place] [address] * Hemoglobin A1c (01/29/2014 2:42 PM CDT) Hemoglobin A1C 5.9 4.3 - 6.0 % [facility] Blood specimen (specimen) 01/29/2014 2:42 PM CDT 01/29/2014 2:44 PM CDT us Christine Marr MD LAB - BLOOD ORDERABLE S Final Result Performing Organization Address City/[facility]/ZIP Co de Phone Number [facility] [address] [place], [place] [id number] * COLONOSCOPY (01/17/2014 11:01 AM CDT) COLONOSCOPY [facility] Patient Name: Kaiden Axel Procedure Date: 01/17/2014 11:01:32 AM Date of : 1975 Admit Type: Outpatient Age: 38 Gender: Male Attending MD: Prashanth Cedeno MD Procedure: Colonoscopy Indications: Screening in patient at increased risk: Colorectal cancer in father before age 60 Providers: Prashanth Aj MD Referring MD: Christine Marr MD Medicines: Midazolam 2 mg IV, Fentanyl 100 micrograms IV Complications: No immediate complications Procedure: Pre-Anesthesia Assessment: - Prior to the procedure, a History and Physical was performed, and patient medications and allergies were reviewed. The patient is competent. The risks and benefits of the procedure and the sedation options and risks were discussed with the patient. All questions were answered and informed consent was obtained. Patient identification and proposed procedure were verified by the physician. Mental Status Examination: alert and oriented. Airway Examination: normal oropharyngeal airway and neck mobility. Respiratory Examination: clear to auscultation. CV Examination: normal. Prophylactic Antibiotics: The patient does not require prophylactic antibiotics. Prior Anticoagulants: The patient has taken no previous anticoagulant or antiplatelet agents. ASA Grade Assessment: I - A normal, healthy patient. After reviewing the risks and benefits, the patient was deemed in satisfactory condition to undergo the procedure. The anesthesia plan was to use moderate sedation / analgesia (conscious sedation). Immediately prior to administration of medications, the patient was re-assessed for adequacy to receive sedatives. The heart rate, respiratory rate, oxygen saturations, blood pressure, adequacy of pulmonary ventilation, and response to care were monitored throughout the procedure. The physical status of the patient was re-assessed after the procedure. After obtaining informed consent, the colonoscope was passed under direct vision. Throughout the procedure, the patient's blood pressure, pulse, and oxygen saturations were monitored continuously. The [id number] was introduced through the anus and advanced to the cecum, identified by appendiceal orifice & ileocecal valve. The colonoscopy was performed without difficulty. The patient tolerated the procedure well. The quality of the bowel preparation was good. Findings: The perianal and digital rectal examinations were normal. The entire examined colon appeared normal on direct and retroflexion views. Impression: - The entire examined colon is normal on direct and retroflexion views. Recommendation: - Repeat colonoscopy in 5 years for surveillance. Elevate head of bed 6 inches off the ground. Electronically signed by Prashanth Aj MD __ [...] 1 AM CDT Christine Marr MD PROCEDURES Final Result Performing Organization Address City/[facility]/ZIP Co de Phone Number RADIOLOGY RESULTS * Stool: occult blood (01/10/2014 5:35 AM CDT) Occult Blood Negative [facility] Stool specimen (specimen) 01/10/2014 5:35 AM CDT 01/10/2014 7:01 AM CDT us Ethan Barksdale MD LAB - STOOLS ORDERABLES Fin al Result [facility] [address] [phone] * (ABNORMAL) Lipid Profile (Chol, Trig, HDL, LDL calc) (07/26/2013 12:21 PM CDT) Cholesterol 158 <200 mg/dL [facility] Comment: LDL Cholesterol is the primary guide to therapy. The NCEP recommends further evaluation of: patients with cholesterol greater than 200 mg/dL if additional risk factors are present, cholesterol greater than 240 mg/dL, triglycerides greater than 150 mg/dL, or HDL less than 40 mg/dL. Triglycerides 88 0 - 150 mg/dL [facility] HDL Cholesterol 33(L) >40 mg/dL [facility] LDL Cholesterol Calculated 108 0 - 129 mg/dL [facility] Comment: LDL Cholesterol is the primary guide to therapy: LDL-cholesterol goal in high risk patients is <100 mg/dL and in very high risk patients is <70 mg/dL. VLDL-Cholesterol 18 0 - 30 mg/dL [facility] Cholesterol/HDL Ratio 4.9 0.0 - 5.0 [facility] Blood specimen (specimen) 07/26/2013 12:21 PM CDT 07/26/2013 12:24 PM CDT Jensen Melendez MD LAB - BLOOD ORDERABLES Final Result [facility] [address] [place] [address] * Microalbumin quantitative, random urine (11/07/2012 3:13 PM CDT) Creatinine Urine 178 mg/dL [facility] Albumin Urine mg/L <5 Urine Microalbumin lowest reportable value has been changed from 2 mg/L to 5 mg/L due to a methodology change on August. mg/L [facility] Albumin Urine mg/g Cr Unable to calculate 0 - 17 mg/g Cr [facility] Urine specimen (specimen) 11/07/2012 3:13 PM CDT 11/07/2012 3:16 PM CDT Jensen Melendez MD LAB - URINE ORDERABLES Final Result [facility] [address] [place] [address] * HIV 1 and 2 Antibody (11/07/2012 3:12 PM CDT) HIV 1&2 Antibody Negative [facility] Blood specimen (specimen) 11/07/2012 3:12 PM CDT 11/07/2012 3:15 PM CDT Jensen Melendez MD LAB - BLOOD ORDERABLES Final Result Performing Organization Address City/[facility]/ZIP Co de Phone Number [address] * Hepatitis C antibody (11/07/2012 3:12 PM CDT) Hepatitis C Antibody Negative [facility] Blood specimen (specimen) 11/07/2012 3:12 PM CDT 11/07/2012 3:15 PM CDT Jensen Melendez MD LAB - BLOOD ORDERABLES Final Result Performing Organization Address City/[facility] Co de Phone Number [address] from Last 3 Months or Most Recently Relevant to Health Maintenance Additional Health Concerns Infection Onset Date Last Indicated MRSA-Contact Isolation Comment:Skin 12-25-2012 01/02/2013 01/02/2013 Insurance [place] Advance Directives For more information, please contact: [phone] * Full Code (Latest Code Status on File) Date Activated Date Inactivated Comments 10/28/2012 8:54 AM * Full Code Date Activated Date Inactivated Comments 10/26/2012 5:12 AM 10/28/2012 8:54 AM Care Teams Physician Office Assistant Relationship Specialty Start Date End Date Christine Marr MD PCP - General Pediatrics 01/14/14
--- OUTSIDE RECORDS SUMMARY | 2024-10-21 07:55 | XMS_ITS | Clinical Summary ---
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 Name Role Phone Amy Joaquin DO Primary Care Provider [phone] Allergies Active Allergy Reactions Criticality Noted Date Comments Sulfamethoxazole-Trimethoprim Hives 2014 Clindamycin Anaphylaxis 06/16/2014 Diphenhydramine Hcl Hives 02/18/2016 Metformin Diarrhea 09/14/2021 Penicillins *Unknown 06/15/2013 Potassium Clavulanate *Unknown 08/16/2021 Dulaglutide Nausea And Vomiting 09/14/2021 Vancomycin *Unknown 06/15/2013 Medications glucagon (Glucagon Emergency Kit, human,) 1 mg injectionIndicat ions:Pancreatic insufficiency (HC) Inject 1 mg As Directed each time if needed (symptomatic hypoglycemia <50 and not responding to oral glucose). 3 Each 2 022 Active Insulin Spearfish, Disposable, 32 gauge x /32Indications :Type 2 diabetes mellitus treated with insulin (HC) As directed. Remove the 2 covers on the insulin pen needle before administering insulin dose. 100 Each 2 023 Active mirtazapine (REMERON) 15 mg tablet Take 15 mg by mouth at bedtime. Active lacosamide (VIMPAT) 100 mg tabletIndication s:Focal epilepsy (HC) Take 1.5 tablet at night, 1 tablet when you get up in the morning 024 Active Briviact 25 mg tablet Take 25 mg by mouth two times daily. Active FreeStyle Amrit 3 Plus Sensor for continuous blood glucose monitor (CGM)Indications :Type 2 diabetes mellitus with obesity (HC) To be used to read blood sugars, change sensor every 15 days. 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 1 Each 025 Active SUMAtriptan 100 mg tabletIndication s:Migraine syndrome Take by mouth. 025 Active triamcinolone 0.5 % creamIndications :Chronic eczema Apply topically to affected area(s) two times daily. 15 g 025 Active rosuvastatin 10 mg tabletIndication s:Type 2 diabetes mellitus with obesity (HC) Take 1 Tablet (10 mg) by mouth at bedtime. 90 Tablet 3 025 Active lisinopriL 20 mg tabletIndication s:HTN (hypertension) TAKE 1 TABLET(20 MG) BY MOUTH EVERY DAY 90 Tablet 3 025 Active Lantus Solostar U-100 Insulin 100 unit/mL (3 mL) penIndications:T ype 2 diabetes mellitus with obesity (HC) Inject 60 units subcutaneous once daily. Product desired: LANTUS SOLOSTAR 54 mL 3 025 Active lisinopriL (PRINIVIL; ZESTRIL) 20 mg tabletIndication s:HTN (hypertension) TAKE 1 TABLET(20 MG) BY MOUTH EVERY DAY 90 Tablet 2 024 2024 Discontinued Lantus Solostar U-100 Insulin 100 unit/mL (3 mL) penIndications:T ype 2 diabetes mellitus with obesity (HC) Inject 40 units subcutaneous once daily. Product desired: LANTUS SOLOSTAR 36 mL 3 025 2024 Discontinued(R eorder (E-cancel not sent)) Active Problems Problem Noted Date Diagnosed Date Irritable bowel syndrome with diarrhea 5 Concussion 09/23/2024 Nonintractable epilepsy without status epileptic us 11/02/2022 Primary hypertension 09/13/2022 Diverticular disease of large intestine 09/01/19 Autism spectrum disorder requiring support (leve l 1) 08/30/2022 Diabetes mellitus type 2 in obese 08/30/2022 Generalized seizure 07/11/2022 Unspecified adrenocortical insufficiency 023 Functional abdominal pain syndrome 12/16/2021 Pancreatic insufficiency 12/16/2021 Chronic recurrent pancreatitis 06/01/2021 Irritable bowel syndrome wit h both constipation and diarrhea 06/01/2021 Elevated lipase 05/25/2021 Overview (05/25/2021): CT scan 11/2020 Controlled type 2 diabetes m ellitus with complication, with long-term current use of insulin 03/04/2021 Chronic midline low back pain with sciatica 11/2019 Peripheral sensory neuropathy 02/19/2020 Type 2 diabetes mellitus treated with insulin Varicose veins of bilateral lower extremities with other complications 07/03/2018 Post-concussion headache 07/23/2015 Overview (07/23/2015): See Neuro visit 07/23/15 MRSA (methicillin resistant staph aureus) cultur e positive 03/06/2015 Overview (03/06/2015): history of mrsa Anxiety disorder 07/18/2014 Recurrent major depression 07/18/2014 Hyperthyroidism 11/07/2012 Resolved Problems Problem Noted Date Diagnosed Date Resolved Date Type 2 diabetes mellitus treated with insulin 07/03/19 19 07/03/2018 Elevated alanine aminotransferase (ALT) level 07/20/19 16 09/14/2021 Type 2 diabetes mellitus with complication 03/06/2015 07/03/2018 Cellulitis 03/06/2015 03/06/2015 Encounters Date Type Department Care Team Description 10/18/2024 Phone Office Visit [facility] [address] [place] [address] Nhung Kincaid PA 09/25/2024 Refill [facility] [address] [place] [address] Amy Joaquin DO Refill Request (Lisinopril) 09/23/2024 10:10 AM CDT Office Visit [facility] [address] [place] [address] Amy Joaquin DO Dizziness (X5 months ago - work has new management and they wanted him to be checked out - has a neurologist in [facility] - has not been seen since - notes when he bends over and he gets dizziness and sometimes passes out ); Diabetes (Has been having sugars of 250 - and he is using 40u-50u and not eating and still not able to bring his sugars down - had night sweats last night ) 09/23/2024 Travel 08/02/2024 8:55 AM CDT Office Visit [facility] [address] [place] [address] Amy Joaquin DO Physical (49 year old ); Diabetes; Medication Management 08/02/2024 Travel from Last 3 Months Immunizations Immunization Administration Dates Next Due COVID-19 vaccine (Moderna 10 0mcg/0.5mL) PF, MDV 09/21/2020,08/24/2020 COVID-19 vaccine (Moderna Pankaj kenyetta 50mcg/0.25mL) PF, MDV 04/16/2021 COVID-19 vaccine (CounsylBio NTech 30mcg/0.3mL) 12YO+ BIVALENT PF, MDV 04/15/2022 DTaP-HIB (TriHIBIT) 09/08/2008 HepA-HepB (Twinrix) 10/05/2016 Hepatitis B (Adult) 11/16/2020,01/15/2020 Influenza, IIV4 04/06/2022,04/16/2021,01/15/2020 Pneumococcal Conj 20-valent (Prevnar 20) 023 Pneumococcal Poly,23-Valent (Pneumovax) 01/15/20 20 Tdap 07/22/2017,09/08/2008,05/15/2008 Family History Medical History Relation Name Comments Cancer-colon Father Arthritis Maternal Grandmother Other Maternal Grandmother immune deficiency Heart Disease Mother Diabetes Paternal Grandmother Relation Name Status Comments Father Maternal Grandmother Mother Alive Paternal Grandmother Social History Tobacco Use Types Packs/Day Years Used Date Smoking Tobacco: Never Passive Smoke Exposure: Past Smokeless Tobacco: Never Tobacco Cessation:Counseling Given: Yes Alcohol Use Standard Drinks/Week Comments No 0 (1 standard drink = 0.6 oz pur e alcohol) PHQ-2 Answer Date Recorded PHQ-2 TOTAL SCORE 1 08/02/2024 Social Connections Answer Date Recorded Do you often feel lonely or isolated from those around you? 0 09/27/2023 Financial Resource Strain Answer Date R ecorded Difficulty of Paying Living Expenses 3 09/27/2023 Difficulty of Paying Living Expenses Not on file 09/27/2023 Food Insecurity Answer Date Recorded Do you worry your food will run out before you are able to buy more? 1 09/27/2023 Transportation Needs Answer Date Record ed Does lack of transportation keep you from medica l appointments? 1 09/27/2023 Does lack of transportation keep you from work, meetings or getting things that you need? 1 09/27/2023 Housing Stability Answer Date Recorded What is your housing situation today? 1 09/27/2023 Utilities Answer Date Recorded Do you have trouble paying f or utilities (for example, heat, electricity, water, phone)? 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 Gender Identity Not on file Sexual Orientation Not on file Occupation Industry Job Start Date Job End Date Not on file Not on file Not on file Not on file Obstetrics History Last Filed Vital Signs Vital Sign Reading Time Taken Comments Blood Pressure 139/89 09/23/2024 10:14 AM CDT Pulse 97 09/23/2024 10:11 AM CDT Temperature 37.1 C (98.7 F) 10/30/2022 9:16 AM CDT Respiratory Rate 18 10/30/2022 9:16 AM CDT Oxygen Saturation 98% 09/23/2024 10: 11 AM CDT Inhaled Oxygen Concentration - - Weight 109.5 kg (241 lb 6.4 oz) 025 10:11 AM CDT Height 175 cm (5' 8.9) 08/02/2024 8:56 AM CDT Body Mass Index 35.75 08/02/2024 8:56 AM CDT Plan of Treatment Upcoming Encounters Date Type Department Care Team (Late st Contact Info) Description 10/25/2024 9:30 AM CDT Office Visit [facility] [address] [place] [address] Nhung Kincaid PA [address] [place] [address] 11/08/2024 9:20 AM CDT Office Visit [facility] [address] [place] [address] Amy Joaquin DO [address] [place] [address] Health Maintenance Due Date Last Done Comments COVID-19 vaccine series ( season) 2024 04/15/2022, 04/16/2021, 09/21/2020, Additional history exists Influenza Vaccine (Season Ended) 2025 04/06/2022, 04/16/2021, 01/15/2020 BMI (ht and wt on same day) for age 18+ 08/02/2025 08/02/2024, 09/27/2023, 10/06/2022, Additional history exists Depression screening for age 12+ 08/02/2025 08/02/2024, 11/17/2022, 10/06/2022, Additional history exists Tetanus booster 07/23/2027 07/22/2017, 08/14, 05/15/2008 Lipids for age 45-75 08/02/2029 08/02/2024, 02/22/2022, 04/01/2021, Additional history exists Colonoscopy through age 75 09/01/2031 08/31/2021 Tdap Completed 07/22/2017, 08/14, 05/15/2008 Hepatitis B series for 19+ Completed 11/16, 01/15/2020, 10/05/2016 Hepatitis C screening for ag e 18-79 Completed 02/22/2022 Pneumococcal series for age 6-49 Completed 11/03/19 23, 01/15/2020 HIV for age 15-65 Completed 08/02/2024 Procedures Procedure Name Priority Date/Time Associated Diagnosis Comments CBC WITH AUTO DIFFERENTIAL Routine 09/23/2024 11:17 AM CDT Sweating abnormality COMP METABOLIC PANEL Routine 09/23/2024 11:17 AM CDT Sweating abnormality TSH WITH REFLEX Routine 09/23/2024 11:17 AM CDT Hyperthyroidism CYCLIC CITRULLINE PEPTIDE Routine 09/23/2024 11:17 AM CDT Sweating abnormality SEDIMENTATION RATE Routine 09/23/2024 11 :17 AM CDT Sweating abnormality C-REACTIVE PROTEIN Routine 09/23/2024 11 :17 AM CDT Sweating abnormality RA QUANTITATIVE Routine 09/23/2024 11:17 AM CDT Sweating abnormality Hyperthyroidism HEMOGLOBIN A1C MONITORING (POCT) Routine 08/02/2024 9:48 AM CDT Type 2 diabetes mellitus with obesity (HC) URINALYSIS [facility] ONLY POC DIP ([facility]) Routine 08/02/2024 9:48 AM CDT Fatigue, unspecified type ANTI HIV 1/2 Routine 08/02/2024 9:47 AM CDT Screening for HIV (human immunodeficiency virus) BASIC METABOLIC PANEL Routine 08/02/2024 9:47 AM CDT Annual physical exam LIPID PANEL W REFLEX MEASURED LDL Routine 08/02/2024 9:47 AM CDT Annual physical exam URINE ALBUMIN TO CREATININE RATIO, RANDOM Routine 08/02/2024 9:45 AM CDT Type 2 diabetes mellitus with obesity (HC) ANTI HCV Add On 02/22/2022 8:43 AM CDT Need for hepatitis C screening test COLONOSCOPY 08/31/2021 1:38 PM CDT from Last 3 Months or Most Recently Relevant to Health Maintenance Results * SEDIMENTATION RATE (09/23/2024 11:17 AM CDT) SED RATE BY MODIFIED WESTERGREN 6 < OR = 15 mm/h [facility] Blood BLOOD SPECIMEN / Unknown 09/23/2024 11:17 AM CDT 09/23/2024 11:22 AM CDT Amy Joaquin DO HEMATOLOGY Final Result Performing Organization Address [facility]/ZIP Co de Phone Number [facility] [address] [place] [address], [place] [phone] [facility] [address] [place] [address] * TSH WITH REFLEX (09/23/2024 11:17 AM CDT) TSH W/REFLEX TO FT4 2.66 0.40 - 4.50 mIU/L [facility] Blood BLOOD SPECIMEN / Unknown 09/23/2024 11:17 AM CDT 09/23/2024 11:22 AM CDT Amy Joaquin DO CHEMISTRY Final Result Performing Organization Address [facility] Co de Phone Number [facility] [address] [place] [address], [place] [phone] [facility] [address] [place] [address] * CYCLIC CITRULLINE PEPTIDE (09/23/2024 11:17 AM CDT) CYCLIC CITRULLINATED PEPTIDE (CCP) AB (IGG) <16 UNITS [facility] Comment: Reference Range Negative: <20 Weak Positive: 20-39 Moderate Positive: 40-59 Strong Positive: >59 Blood BLOOD SPECIMEN / Unknown 09/23/2024 11:17 AM CDT 09/23/2024 11:22 AM CDT Amy Joaquin DO SEND OUTS Final Result Performing Organization Address City[facility]/ZIP Co de Phone Number [facility] [address] [place] [address], [place] [phone] [facility] [address] [facility] [place] [address] * RA QUANTITATIVE (09/23/2024 11:17 AM CDT) [facility] RHEUMATOID FACTOR <10 <14 IU/mL [facility] Blood BLOOD SPECIMEN / Unknown 09/23/2024 11:17 AM CDT 09/23/2024 11:22 AM CDT Nataliiai Markyqra DO SEND OUTS Final Result [facility] [address] [facility] [address] [place] [address], [facility] [address] [place] [address] * C-REACTIVE PROTEIN (09/23/2024 11:17 AM CDT) [facility] C-REACTIVE PROTEIN 5.3 <8.0 mg/L [facility] Blood BLOOD SPECIMEN / Unknown 09/23/2024 11:17 AM CDT 09/23/2024 11:22 AM CDT Amy Joaquin DO CHEMISTRY Final Result [facility] [address] [facility] [place] [address], [place] [phone] [facility] [address] [facility] [place] [address] * CBC AND DIFFERENTIAL (09/23/2024 11:17 AM CDT) [facility] WHITE BLOOD CELL COUNT 7.0 3.8 - 10.8 Thousand/u L [facility] RED BLOOD CELL COUNT 5.28 4.20 - 5.80 Million/uL [facility] HEMOGLOBIN 16.0 13.2 - 17.1 g/dL [facility] HEMATOCRIT 47.7 38.5 - 50.0 % [facility] MCV 90.3 80.0 - 100.0 fL [facility] MCH 30.3 27.0 - 33.0 pg [facility] MCHC 33.5 32.0 - 36.0 g/dL [facility] Comment: For adults, a slight decrease in the calculated MCHC value (in the range of 30 to 32 g/dL) is most likely not clinically significant; however, it should be interpreted with caution in correlation with other red cell parameters and the patient's clinical condition. RDW 12.6 11.0 - 15.0 % [facility] PLATELET COUNT 175 140 - 400 Thousand/u L [facility] MPV 10.8 7.5 - 12.5 fL [facility] ABSOLUTE NEUTROPHILS 5,159 1,500 - 7,800 cells/uL [facility] ABSOLUTE LYMPHOCYTES 1,232 850 - 3,900 cells/uL [facility] ABSOLUTE MONOCYTES 511 200 - 950 cells/uL [facility] ABSOLUTE EOSINOPHILS 77 15 - 500 cells/uL [facility] ABSOLUTE BASOPHILS 21 0 - 200 cells/uL [facility] NEUTROPHILS 73.7 % [facility] LYMPHOCYTES 17.6 % [facility] MONOCYTES 7.3 % [facility] EOSINOPHILS 1.1 % [facility] BASOPHILS 0.3 % [facility] Blood BLOOD SPECIMEN / Unknown 09/23/2024 11:17 AM CDT 09/23/2024 11:22 AM CDT us Nataliiai Jemal DO HEMATOLOGY Final Result [facility] [address] [place] [address], [facility] [address] [place] [address] * (ABNORMAL) COMP METABOLIC PANEL (09/23/2024 11:17 AM CDT) [facility] Signature GLUCOSE 146(H) 65 - 99 mg/dL [facility] Comment: Fasting reference interval For someone without known diabetes, a glucose value >125 mg/dL indicates that they may have diabetes and this should be confirmed with a follow-up test. UREA NITROGEN (BUN) 18 7 - 25 mg/dL [facility] CREATININE 0.86 0.60 - 1.29 mg/dL [facility] EGFR 107 > OR = 60 mL/min/1. 73m2 [facility] BUN/CREATININE RATIO SEE NOTE: (calc) [facility] Comment: Not Reported: BUN and Creatinine are within reference range. SODIUM 139 135 - 146 mmol/L [facility] POTASSIUM 4.2 3.5 - 5.3 mmol/L [facility] CHLORIDE 101 98 - 110 mmol/L [facility] CARBON DIOXIDE 28 20 - 32 mmol/L [facility] CALCIUM 9.8 8.6 - 10.3 mg/dL [facility] PROTEIN, TOTAL 7.5 6.1 - 8.1 g/dL [facility] ALBUMIN 4.4 3.6 - 5.1 g/dL [facility] GLOBULIN 3.1 1.9 - 3.7 g/dL (calc) [facility] ALBUMIN/GLOBULIN RATIO 1.4 1.0 - 2.5 (calc) [facility] BILIRUBIN, TOTAL 0.5 0.2 - 1.2 mg/dL [facility] ALKALINE PHOSPHATASE 57 36 - 130 U/L [facility] AST 32 10 - 40 U/L [facility] ALT 42 9 - 46 U/L [facility] Blood BLOOD SPECIMEN / Unknown 09/23/2024 11:17 AM CDT 09/23/2024 11:22 AM CDT us Amy Joaquin DO CHEMISTRY Final Result [facility] [address] [place] [address], [facility] [address] [place] [address] * (ABNORMAL) POCT Urinalysis Dipstick Only (08/02/2024 9:48 AM CDT) PH 5.5 5.0 - 8.0 [facility] SPECIFIC GRAVITY 1.025 1.001 - 1.035 [facility] GLUCOSE 2+(A) NEGATIVE [facility] BILIRUBIN NEGATIVE NEGATIVE [facility] KETONES NEGATIVE NEGATIVE [facility] OCCULT BLOOD NEGATIVE NEGATIVE [facility] PROTEIN NEGATIVE NEGATIVE [facility] NITRITE NEGATIVE NEGATIVE [facility] LEUKOCYTE ESTERASE NEGATIVE NEGATIVE [facility] Urine URINE SPECIMEN / Unknown 08/02/2024 9:48 AM CDT 08/02/2024 9:48 AM CDT us Amy Joaquin DO URINE Final Result [facility] [address] [place] [address], [facility] [address] [place] [address] * (ABNORMAL) HEMOGLOBIN A1C MONITORING (POCT) (08/02/2024 9:48 AM CDT) POC HEMOGLOBIN A1C 11.5(H) <6.0 % OF TOTAL HGB [facility] Comment: Any point of care results exhibiting inconsistency with the patient's clinical status should be repeated using a different testing method. Blood BLOOD SPECIMEN / Unknown 08/02/2024 9:48 AM CDT 08/02/2024 9:48 AM CDT us Adei Jemal CHEMISTRY Final Result [facility] [address] [place] [address], [facility] [address] [place] [address] * (ABNORMAL) LIPID PANEL W REFLEX MEASURED LDL (08/02/2024 9:47 AM CDT) [facility] Signature CHOLESTEROL, TOTAL 249(H) <200 mg/dL [facility] HDL CHOLESTEROL 47 > OR = 40 mg/dL [facility] TRIGLYCERIDES 285(H) <150 mg/dL [facility] Comment: If a non-fasting specimen was collected, consider repeat triglyceride testing on a fasting specimen if clinically indicated. Jason et al. J. of Clin. Lipidol. 2015;9:129-169. LDL-CHOLESTEROL 155(H) mg/dL (calc) [facility] Comment: Reference range: <100 Desirable range <100 mg/dL for primary prevention; <70 mg/dL for patients with CHD or diabetic patients with > or = 2 CHD risk factors. LDL-C is now calculated using the Kwame-Lay calculation, which is a validated novel method providing better accuracy than the Friedewald equation in the estimation of LDL-C. Kwame SS et al. ALBERTA. 2013;310(19): 5134-8245 (http://education.[employer]/faq/SPG168) CHOL/HDLC RATIO 5.3(H) <5.0 (calc) [facility] NON HDL CHOLESTEROL 202(H) <130 mg/dL (calc) [facility] Comment: For patients with diabetes plus 1 major ASCVD risk factor, treating to a non-HDL-C goal of <100 mg/dL (LDL-C of <70 mg/dL) is considered a therapeutic option. Blood BLOOD SPECIMEN / Unknown 08/02/2024 9:47 AM CDT 08/02/2024 9:47 AM CDT Narrative [facility] - 08/03/2024 3:17 AM CDT FASTING:NO FASTING: NO Adei PlayFilmqra DO CHEMISTRY Final Result Performing Organization Address [facility]/State/ZIP Co de Phone Number [facility] [address] [facility] [place] [address], [place] [phone] [facility] [address] [place] [address] * ANTI HIV 1/2 [46262.0] (08/02/2024 9:47 AM CDT) HIV AG/AB, 4TH GEN NON-REACT GAIL NON-REACT GAIL [facility] Comment: HIV-1 antigen and HIV-1/HIV-2 antibodies were not detected. There is no laboratory evidence of HIV infection. PLEASE NOTE: This information has been disclosed to you from records whose confidentiality may be protected by state law. If your state requires such protection, then the state law prohibits you from making any further disclosure of the information without the specific written consent of the person to whom it pertains, or as otherwise permitted by law. A general authorization for the release of medical or other information is NOT sufficient for this purpose. For additional information please refer to http://education.[employer]ulse.io/faq/NTQ883 (This link is being provided for informational/ educational purposes only.) The performance of this assay has not been clinically validated in patients less than 2 years old. Blood BLOOD SPECIMEN / Unknown 08/02/2024 9:47 AM CDT 08/02/2024 9:47 AM CDT Narrative [facility] - 08/05/2024 12:36 PM CDT FASTING:NO FASTING: NO Menigai PlayFilmqra DO SEND OUTS Final Result [facility] [address] [facility] [place] [address], [place] [phone] [facility] [address] [place] [address] * (ABNORMAL) BASIC METABOLIC PANEL (08/02/2024 9:47 AM CDT) [facility] GLUCOSE 257(H) 65 - 139 mg/dL [facility] Comment: Non-fasting reference interval UREA NITROGEN (BUN) 19 7 - 25 mg/dL [facility] CREATININE 0.96 0.60 - 1.29 mg/dL [facility] EGFR 98 > OR = 60 mL/min/1. 73m2 [facility] BUN/CREATININE RATIO SEE NOTE: 6 - 22 (calc) [facility] Comment: Not Reported: BUN and Creatinine are within reference range. SODIUM 138 135 - 146 mmol/L [facility] POTASSIUM 4.2 3.5 - 5.3 mmol/L [facility] CHLORIDE 99 98 - 110 mmol/L [facility] CARBON DIOXIDE 31 20 - 32 mmol/L [facility] ELECTROLYTE BALANCE 8 7 - 17 mmol/L (calc) [facility] CALCIUM 9.6 8.6 - 10.3 mg/dL [facility] Blood BLOOD SPECIMEN / Unknown 08/02/2024 9:47 AM CDT 08/02/2024 9:47 AM CDT Narrative [facility] - 08/03/2024 3:17 AM CDT FASTING:NO FASTING: NO us Adei Jemal DO CHEMISTRY Final Result [facility] [address] [place] [address], [facility] [address] [place] [address] * URINE ALBUMIN TO CREATININE RATIO, RANDOM (08/02/2024 9:45 AM CDT) [facility] ALB RAND URINE 34.3 mg/L 08/02/2024 5:17 PM CDT [facility] CREATININE,URIN E 1.25 g/L 08/02/2024 5:17 PM CDT [facility] ALBUMIN TO CREATININE RATIO,RAND UR 27.4 <30.0 mg/g creat 08/02/2024 5:17 PM CDT [facility] Urine URINE SPECIMEN / Unknown Non-Blood / Unknown 08/02/2024 9:45 AM CDT 08/02/2024 9:45 AM CDT Narrative [facility] - 08/02/2024 5:17 PM CDT If Albumin to Creatinine Ratio is elevated, consider the following: Elevations seen with incipient nephropathy associated with diabetes mellitus or hypertension. Stress, exercise,hematuria, and urinary tract infection may also produce elevated results. If clinically indicated, confirm with 24 Hour Albumin to Creatinine Ratio. Amy Joaquin DO URINE Final Result [facility] [address] [place] [address], [place] * ANTI HCV (02/22/2022 8:43 AM CDT) HEPATITIS C ANTIBODY Non-React gail Non-React gail 02/23/2022 3:50 PM CDT [facility] Comment:Antibodies to HCV no t detected; does not exclude the possibility of exposure to HCV. Blood BLOOD SPECIMEN / Unknown Venipuncture / Unknown 02/22/2022 8:43 AM CDT 02/22/2022 8:45 AM CDT Leonor Delgado MD SEND OUTS Final Res ult [facility] [address] [place] [address], [place] * COLONOSCOPY (08/31/2021 1:38 PM CDT) 08/31/2021 1:38 PM CDT Narrative Transcriptions Yoan Santos MD - 08/31/2021 8:22 PM CDT [facility] Patient Name: Kaiden Reyna Procedure Date: 08/31/2021 Gender: Male Date of : 1975 Admit Type: Ambulatory Procedure: Colonoscopy Proceduralist: Yoan Santos MD - [facility] [address] [address] Indications/Pre-Op Diagnosis: Screening for colorectal malignantneoplasm Medications: Monitored Anesthesia Care Procedure Description: The patient had risks, benefits and alternatives explained to andgave informed consent. The patient had a stable cardiopulmonary status and judged an adequate candidate for conscious sedation. The endoscope was passed through the anus and advanced to theterminal ileum, with identification of the appendiceal orifice and IC valve.The colonoscopy was performed without difficulty. The patient toleratedthe procedure well. The quality of the bowel preparation was excellent. Complications: No immediate complications. Estimated Blood Loss & Specimen: Estimated blood loss: none. Specimen collected: None Findings: The perianal and digital rectal examinations were normal. The terminal ileum appeared normal. The entire examined colon appeared normal on direct and retroflexion views. Impressions/Post-Op Diagnosis: - The examined portion of the ileum was normal. - The entire examined colon is normal on direct and retroflexionviews. Recommendation: - Discharge patient to home. - Return to clinic at [facility] as scheduled. - Repeat colonoscopy for colorectal cancer screening in 10 years. Yoan Santos MD 08/31/2021 8:21:53 PM This report has been signed electronically. Note Initiated On: 08/31/2021 1:38 PM Yoan Santos MD PROCEDURE ORD Daysi sparks Result from Last 3 Months or Most Recently Relevant to Health Maintenance Additional Health Concerns Infection Onset Date Last Indicated MRSA Clearance Comment:Infection Control Note: Hx of MRSA nares 01/11/2014, surveillance criteria met, no need for further testing or isolation precautions. Do not delete or resolve the infection flag. 08/31/2021 08/31/2021 Insurance [place] [employer] CHOICE Advance Directives * Full Code (Latest Code Status on File) Date Activated Date Inactivated Comments 10/25/2022 9:26 AM 10/30/2022 4:23 PM Question Answer Comments Code Status Discussion: Reviewed Preferences * Full Code Date Activated Date Inactivated Comments 08/31/2021 9:44 AM 08/31/2021 5:29 PM Question Answer Comments Code Status Discussion: Reviewed Preferences Care Teams Annealing Oven Operator Relationship Specialty Start Date End Date Amy Joaquin DO [address] [place] [address] PCP - General Family Practice 08/02/24
--- OUTSIDE RECORDS SUMMARY | 2024-10-21 07:55 | XMS_ITS | Clinical Summary ---
Author Organization [facility] Address [address] [place] [address] Care Team Providers Care Business Analytics Intern Name Role Phone Unavailable Primary Care Provider Unavailabl e Source Comments You are receiving this document as you are listed as the primary care provider,follow-up provider, or the patient has been referred to you for consultation.This is in compliance with the Medicare andSelect [facility]ca[facility] EHR Incentive Program,which states Providers who transition their patient to another setting of careor provider of care or refers their patient to another provider of care shouldprovide summary care record for each transition of care or referral. [email or web address] Allergies Active Allergy Reactions Criticality Noted Date Comments Penicillins Hives 08/01/2012 Medications * This document contains information received from the source organization and may not represent a complete record from that organization. lacosamide (AKA VIMPAT) 100 MG tablet Take by mouth. 4 Active mirtazapine (REMERON) 15 MG tablet SMARTSI Tablet(s) By Mouth Every Evening 4 Active lisinopril (ZESTRIL) 20 MG tablet Take 1 Tablet (20 mg) by mouth daily. 4 Active BRIVIACT 25 MG tablet Take 1 Tablet (25 mg) by mouth two times a day. 4 Active Continuous Glucose Sensor (FREESTYLE JAYLEN 14 DAY SENSOR) Apply topically daily. 4 Active LANTUS SOLOSTAR 100 UNIT/ML pen Inject 40 Units subcutaneously daily. Active SUMAtriptan (IMITREX) 100 MG tablet Take by mouth daily. 4 Active Active Problems No known active problems Social History Tobacco Use Types Packs/Day Years Used Date Smoking Tobacco: Never Sex and Gender Information Value Date Recorded Sex Assigned at Not on file Legal Sex Male 5:29 AM CDT Gender Identity Not on file Sexual Orientation Not on file Last Filed Vital Signs Vital Sign Reading Time Taken Comments Blood Pressure 121/78 10/24/2012 6:17 PM CDT Pulse 94 10/24/2012 6:17 PM CDT Temperature 37 C (98.6 F) 10/24/2012 6:17 PM CDT Respiratory Rate 20 10/24/2012 6:17 PM CDT Oxygen Saturation 98% 10/10/2012 5:41 PM CDT Inhaled Oxygen Concentration - - Weight 121.6 kg (268 lb) 10/10/2012 7:03 PM CDT Height - - Body Mass Index - - Plan of Treatment Health Maintenance Due Date Last Done Comments Colon Cancer Screening Plan Due 1975 Hep C Screening (Preventive Services) 1975 HIV Screening (Preventive Services) 1993 Adult Preventive Visit 1995 HepB Vaccine (1) 1996 Cholesterol 2012 COVID-19 Vaccine ( season) 2024 04/15/2022, 04/16/2021, 09/21/2020, Additional history exists Influenza Vaccine (Season Ended) 2025 04/11/2022, 04/06/2022, 04/16/2021, Additional history exists Zoster/Shingles Vaccine (1 of 2) 2027 DTaP/Tdap/Td Vaccine (4 - Tdap) 07/23/2027 07/22/2017, 09/08/2008, 09/08/2008 Hib Vaccine Aged Out 09/08/2008 No longer eligi ble based on patient's age to complete this topic HepA Vaccine Aged Out 10/05/2016 No longer eligi ble based on patient's age to complete this topic Pneumococcal Vaccine Aged Out 11/02/2022, 01/15/20 20 No longer eligible based on patient's age to complete this topic IPV (Polio) Vaccine Aged Out No longe r eligible based on patient's age to complete this topic MCV4 Vaccine Aged Out No longer eligi ble based on patient's age to complete this topic Meningococcal B Vaccine Aged Out No l onger eligible based on patient's age to complete this topic Additional Health Concerns Infection Onset Date Last Indicated MRSA 12/22/2015 12/22/2015 Insurance FULLY INSURED FULLY INSURED [facility]IRE [facility]
--- OUTSIDE RECORDS SUMMARY | 2024-10-21 07:55 | XMS_ITS | Encounter Summary ---
Author Organization [facility] Address [address] [place] [address]. [place] [address] Care Team Providers Care Flare Worker Name Role Phone Christine Marr MD Primary Care Provide r Encounter Details Date Type Department Care Team (Late st Contact Info) Description 06/18/2015 [facility] Medical Advice [address] [address] [place]ri [place], [facility] Social History Tobacco Use Types Packs/Day [...] file Not on file Not on file documented as of this encounter Plan of Treatment Not on file documented as of this encounter Visit Diagnoses Not on filedocumented in this encounter Additional Health Concerns Infection Onset Date Last Indicated Resolved Time MRSA-Contact Isolation Comment:Skin 12-25-2012 01/02/2013 01/02/2013 documented as of this encounter Care Teams Flare Worker Relationship Specialty Start Date End Date Christine Marr MD PCP - General Pediatrics 01/14/14 documented as of this encounter
[2024-10-21 08:05] VITALS: BP 151/88; PULSE 107; RESP 20; TEMP 36.7; O2SAT 97; BMI 35.0
--- NOTE | 2024-10-21 08:28 | CRLHL7_ITS ---
For Patients: As a result of the Century Cures Act, medical imaging exams and procedure reports are released immediately into your electronic medical record. You may view this report before your referring provider. If you have questions, please contact your health care provider. INDICATION: Headache TECHNIQUE: Noncontrast axial CT of the head. Coronal and sagittal reformats. Bone and soft tissue algorithms. COMPARISON: CT head 05/01/2024 FINDINGS: The ventricles and cortical sulci appear age-appropriate. No midline shift or mass effect. No acute intracranial hemorrhage or extra-axial fluid collection. Lucas-white matter differentiation is grossly maintained. White matter attenuation is within normal limits. Intracranial vessels are unremarkable for technique. Midline structures are unremarkable. The calvarium appears grossly intact. Clear paranasal sinuses. 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 Mild right-sided cerumen. Unremarkable orbits. IMPRESSION: 1. No CT evidence of acute intracranial abnormality. Please note that all CT scans at this facility use dose modulation, iterative reconstruction, and/or weight-based dosing when appropriate to reduce radiation dose to as low as reasonably achievable. Dictated by Sasha Bonilla MD @ 10/21/2024 9:00:19 AM (Electronically Signed)
--- NOTE | 2024-10-21 08:29 | ED.HA ---
HPI - Headache General Chief Complaint: Headache/Migraine Stated Complaint: Migraine Time Seen by Provider: 10/21/24 08:00 History of Present Illness HPI Narrative: This 49-year-old male comes in reporting headache that began about 5 days ago. He states that it was during intercourse and he had rather sudden onset of severe headache. He did not have any neurologic deficits. He states that the headache has persisted. He does report a history of epilepsy and gets headaches related to that. He also states that he has history of recurrent migraine headaches and is taking medicines to manage both of these conditions. Related Data Home Medications ?Medication ?Instructions ?Recorded ?Confirmed ondansetron 4 mg disintegrating 4 mg PO TID PRN 12/09/21 05/01/24 tablet glucagon 1 mg solution for mg 12/21/21 02/20/22 injection (Glucagon Emergency Kit) ibuprofen 12/21/21 02/20/22 insulin glargine 100 unit/mL (3 40 unit subcut DAILY 10/25/23 10/21/24 mL) subcutaneous pen (Lantus Solostar U-100 Insulin) lacosamide 100 mg tablet 100 mg PO 10/25/23 lisinopril 20 mg tablet 20 mg PO DAILY 10/25/23 10/21/24 mirtazapine 15 mg tablet 30 mg PO 10/25/23 brivaracetam 25 mg tablet 25 mg PO BID 05/01/24 10/21/24 (Briviact) sumatriptan succinate 100 mg tablet mg PO DAILY 05/01/24 rosuvastatin 10 mg tablet 10 mg PO QPM 10/21/24 10/21/24 Previous Rx's ?Medication ?Instructions ?Recorded ketorolac 10 mg tablet 10 mg PO TID 5 days #15 tabs 10/21/24 rizatriptan 10 mg tablet (Maxalt) 10 mg PO Q2-4H PRN migraine 10/21/24 headache #10 tabs Allergies Allergy/AdvReac Type Severity Reaction Status Date / Time sulfamethoxazole (From Allergy Mild Verified 05/01/24 14:47 Bactrim) trimethoprim (From Bactrim) Allergy Mild Verified 05/01/24 14:47 clindamycin Allergy Verified 05/01/24 14:47 diphenhydramine Allergy Verified 05/01/24 14:47 dulaglutide Allergy Verified 05/01/24 14:47 erythromycin base Allergy Verified 05/01/24 14:47 Penicillins Allergy Verified 05/01/24 14:47 vancomycin Allergy Verified 05/01/24 14:47 Review of Systems Status of ROS: Reports: 10 or more systems reviewed and unremarkable except as noted in History and below Narrative: Constitutional: No fevers, no weight gain or loss. Eyes: No discharge. No vision changes. HENT: No congestion, no sore throat, no ear pain. Cardiovascular: No chest pain, no palpitations. Respiratory: No shortness of breath, no wheezes, no cough. Gastrointestinal: No abdominal pain, no vomiting, no diarrhea. Genitourinary: No dysuria, no hematuria. Musculoskeletal: Normal range of motion. Skin: No rashes, no pruritis. Neurological: No dizziness, weakness, sensory change, speech change. Endo/Heme/Allergies: No bruising or bleeding. No polydipsia. Pysch: no suicidality, no anxiety, no insomnia. All other systems reviewed and are negative. [facility] Medical History Chronic pancreatitis ?K86.1 - Other chronic pancreatitis (ICD-10) Pancreatic insufficiency ?K86.89 - Other specified diseases of pancreas (ICD-10) Diabetes mellitus type 2 in obese ?E11.69 - Type 2 diabetes mellitus with other specified complication (ICD-10) ?E66.9 - Obesity, unspecified (ICD-10) Obesity ?E66.9 - Obesity, unspecified (ICD-10) Anxiety ?F41.9 - Anxiety disorder, unspecified (ICD-10) Family History Mother Crohn's disease Autoimmune disease of liver Cirrhosis of liver Father Colon cancer Social History Narrative: He lives in [place] with his and 18-year-old daughter. is healthcare power of banking attorney. 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 He has been temporarily on disability. He does not smoke, drink alcohol or use recreational drugs. Code status is full. Smoking Status: Never smoker Do you use any of these nicotine containing products: None Second hand tobacco smoke exposure: No How often do you have a drink containing alcohol: monthly or less AUDIT-C Alcohol total score: 1 Non-prescribed substance use: marijuana (any form) service: No Exam Narrative: Exam Narrative: Constitutional: Well-developed, well-nourished, no acute distress. HEENT: Normocephalic, atraumatic. Neck: Normal range of motion. Nontender. Supple. Heart: Regular. No murmurs. Normal rate. Intact distal pulses. Lungs: Clear to auscultation. No chest discomfort. No wheezes, rhonchi, or rales. Abdomen: Normal bowel sounds. Nontender. No rebound tenderness. Genitalia: Deferred. Back: No midline tenderness. Normal range of motion. Extremities: Normal range of motion. No injury. Skin: Intact. No rash. Warm. No erythema or pallor. Neurologic: No altered sensation. No weakness. Alert and oriented. No facial asymmetry. Tongue is midline. [id number] is normal. No pronator drift. Loss Prevention Associate strength is equal bilaterally. Able to raise each leg from the bed. Psychiatric: No suicidality. No anxiety or depression. No insomnia. Nursing notes and vitals signs are reviewed. Const: Vital Signs, click to edit/add: Vital Signs - 24 hr 10/21/24 08:05 10/21/24 09:45 Temperature 98.1 F Pulse Rate [Pulse Oximeter] 107 H 88 Respiratory Rate 20 16 Blood Pressure [Ri ght Upper Arm] 151/88 H 132/91 H Pulse Oximetry 97 95 Oxygen Delivery Me thod Room Air Room Air Course Vital Signs Vital signs: Initial Vital Signs Temperature 98.1 F 10/21/24 08:05 Temperature Source Temporal Artery Scan 10/21/24 08:05 Pulse Rate 107 H 10/21/24 08:05 Respiratory Rate 20 10/21/24 08:05 Blood Pressure 151/88 H 10/21/24 08:05 Blood Pressure Mean 109 H 10/21/24 08:05 Blood Pressure Position Sitting 10/21/24 08:05 Pulse Oximetry 97 10/21/24 08:05 Oxygen Delivery Method Room Air 10/21/24 08:05 Vital Signs Temperature 98.1 F 10/21/24 08:05 Pulse Rate 107 H 10/21/24 08:05 Respiratory Rate 20 10/21/24 08:05 Blood Pressure 151/88 H 10/21/24 08:05 Pulse Oximetry 97 10/21/24 08:05 Oxygen Delivery Method Room Air 10/21/24 08:05 Temperature 98.1 F 10/21/24 08:05 Pulse Rate 88 10/21/24 09:45 Respiratory Rate 16 10/21/24 09:45 Blood Pressure 132/91 H 10/21/24 09:45 Pulse Oximetry 95 10/21/24 09:45 Oxygen Delivery Method Room Air 10/21/24 09:45 Medications Administered Medications: Discontinued Medications Generic Name Dose Route Start Last Admin Trade Name Silvia PRN Reason Stop Dose Admin Diphenhydramine HCl 50 mg 10/21/24 08:27 10/21/24 09:00 Diphenhydramine 50 Mg/Ml Inj IVP 10/21/24 08:28 50 mg ONCE ONE Administration Ketamine HCl 20 mg/ Sodium 100.2 mls @ 300.6 mls/hr 10/21/24 11:00 10/21/24 11:27 Chloride IVPB 10/21/24 11:19 Infused ONCE ONE Infusion Ketorolac Tromethamine 30 mg 10/21/24 08:27 10/21/24 09:00 Ketorolac 30 Mg/Ml Inj IVP 10/21/24 08:28 30 mg ONCE ONE Administration Ondansetron HCl 4 mg 10/21/24 08:27 10/21/24 09:00 Ondansetron 2 Mg/Ml Inj IVP 10/21/24 08:28 4 mg ONCE ONE Administration MDM - Headache MDM Narrative Medical decision making narrative: This patient has a history of headaches and comes in with 1 that seems to be more severe and persistent. I did obtain a CT scan because he reported a rather sudden onset of headache symptoms when having intercourse with his . This occurred about 6 days ago. His neurologic exam is completely normal. CT imaging also returns with no acute findings. The patient did receive IV doses of Toradol, Benadryl, and Zofran which did not provide much relief for his headache. He then received 20 mg of ketamine which did provide sufficient relief of his headache. I did prescribe Toradol and Maxalt for ongoing management. He does see a neurologist and I encouraged him to review his plans with the neurologist at the next appointment or sooner if needed. Imaging Data CT scan - head: Radiologist's impression: No CT evidence of acute intracranial abnormality. Discharge Plan Discharge Clinical Impression: Migraine Patient Disposition: Home, Self-Care Condition: Improved Additional Instructions: Use Maxalt and Toradol as needed and directed. Follow up with neurologist or primary physician as scheduled or needed. Return if worsening. Prescriptions: New ketorolac 10 mg tablet 10 mg PO TID 5 Days Qty: 15 0RF rizatriptan [Maxalt] 10 mg tablet 10 mg PO Q2-4H PRN (Reason: migraine headache) Qty: 10 2RF Rx Instructions: do not exceed 3 doses per 24 hrs No Action lisinopril 20 mg tablet 20 mg PO DAILY mirtazapine 15 mg tablet 30 mg PO insulin glargine [Lantus Solostar U-100 Insulin] 100 unit/mL (3 mL) insulin pen 40 unit subcut DAILY lacosamide 100 mg tablet 100 mg PO Patient Comments: 2.5 pills per day sumatriptan succinate 100 mg tablet PO DAILY Briviact 25 mg tablet 25 mg PO BID rosuvastatin 10 mg tablet 10 mg PO QPM ondansetron 4 mg tablet,disintegrating 4 mg PO TID PRN Patient Comments: DISSOLVE 1 TABLET IN MOUTH EVERY 8 HOURS NEEDED FOR NAUSEA AND VOMITING Glucagon Emergency Kit (human) 1 mg recon soln Patient Comments: INJECT 1MG DIRECTED EACH TIME IF NEEDED (SYMPTOMATIC HYPOGLYCEMIA LESS THAN 50 AND NOT RESPONDING TO ORAL GLUCOSE ibuprofen Follow Up/Referrals: Gallo Mejia MD [Referring, Family Practice] Stand Alone Forms: [facility] Info Instructions
[2024-10-21] MEDS: ONDANSETRON 2 MG/ML inj 4 MG IVP (09:00)
[2024-10-21] MEDS: diphenhydrAMINE 50 MG/ML inj IVP (09:00)
[2024-10-21] MEDS: KETOROLAC 30 MG/ML inj IVP (09:00)
[2024-10-21 09:45] VITALS: BP 132/91; PULSE 88; RESP 16; O2SAT 95
[2024-10-21] MEDS: KETAMINE 50 MG/0.5 ML 20 MG in 0.9 % SODIUM CHLORIDE 100 ml 100 ML 300.6 MG IVPB (10:54)
[2024-10-21 12:03] VITALS: BP 141/99; PULSE 83; RESP 20; O2SAT 97
== END 2024-10-21 12:06 | disposition home or self-care (01) ==
PROVIDERS: Emergency Provider Emergency Medicine Emergency Medical Services
DX: G43.909 Migraine, unspecified, not intractable, without status migrainosus (principal)
CPT/HCPCS: 70450; 96365; 96375; 99284; J1200; J1885; J2405; J3490

== ENCOUNTER 2025-01-16 09:30 | Emergency (ER) | payer SELFPAY ==
--- OUTSIDE RECORDS SUMMARY | 2010-12-07 07:06 | XMS_ITS | Continuity of Care Document ---
Author Organization [facility], [place] Address [address] [place] [phone] Phone Care Team Providers Care Nursing Assistant Name Role Phone Mercedes RAMIREZ, Jessica Unavailable Unavailable Allergies, Adverse Reactions, Alerts Substance Reaction Status Criticality No Known allergies Advance Directives Directive Yes / No Effective Date File Name No Information Encounters Encounter Description Practice Location Reason(s) For Visit Diagnoses Date Provider Providers Copied on Encounter [facility], [facility], [address] [place] [address], [id number], tel:[phone] [facility] No Information Mercedes Lopez. [address] [place] [address], [id number], [place]. tel:[phone] Family History Family Member Type Diagnosis Age At Onset Grandmother Problem (finding) cataract Grandmother Problem (finding) Diabetes mellitus Grandparents Problem (finding) Arthritis Grandfather Problem (finding) Heart Disease Grandfather Problem (finding) Respiratory Disease Mother Problem (finding) HBP Payers Payer name Insurance type Covered green party ID Authoriza tion(s) No Information Social History Type Description Quantity Date Captured Comments Sex Male Smoking Status No Information Chief Complaint And Reason For Visit No Information Reason For Referral Reason For Referral No Information History Of Present Illness Encounter Date Complaint History Of Prese nt Illness No Information Functional Status Date Functional Assessmen t No Information Instructions Date Instruction Additional Infor mation No Information Assessments Type Assessment Date No Information Patient Care Teams Name Effective Dates (start - stop) Status Members No Information
--- OUTSIDE RECORDS SUMMARY | 2025-01-16 09:32 | XMS_ITS | Encounter Summary ---
Author Organization [facility] Address [address] [place] [address]. [place] [address] Care Team Providers Care Vehicle Refinisher Name Role Phone Christine Marr MD Primary Care Provide r Encounter Details Date Type Department Care Team (Late st Contact Info) Description 06/18/2015 [facility] Medical Advice [address] [address] [place], [facility] Social History Tobacco Use Types Packs/Day [...] documented as of this encounter Care Teams Vehicle Refinisher Relationship Specialty Start Date End Date Christine Marr MD PCP - General Pediatrics 01/14/14 documented as of this encounter
--- OUTSIDE RECORDS SUMMARY | 2025-01-16 09:32 | XMS_ITS | Clinical Summary ---
Author Organization [facility] Address [address] [place] [address] Care Team Providers Care Bee Producer Name Role Phone Unavailable Primary Care Provider Unavailabl e Source Comments You are receiving this document as you are listed as the primary care provider,follow-up provider, or the patient has been referred to you for consultation.This is in compliance with the Medicare and[facility] Hospital[facility] EHR Incentive Program,which states Providers who transition their patient to another setting of careor provider of care or refers their patient to another provider of care shouldprovide summary care record for each transition of care or referral. [facility] Allergies Active Allergy Reactions Criticality Noted Date Comments Penicillins Hives 08/01/2012 Medications lacosamide (AKA VIMPAT) 100 MG tablet Take [...] 09/21/2020, Additional history exists Influenza Vaccine (#1) 2025 2, 04/06/2022, 04/16/2021, Additional history exists Zoster/Shingles Vaccine [...] Insurance FULLY INSURED FULLY INSURED RETIRE PREFERREDONE [facility] [place] [address]
--- OUTSIDE RECORDS SUMMARY | 2025-01-16 09:32 | XMS_ITS | Encounter Summary ---
Author Organization [facility] Address [address] [place] [address] Care Team Providers Care Cementer Oil Well Name Role Phone Gallo Mejia MD Primary Care Provider Unavail able Buzz Parrish MD Unavailable [phone] Encounter Details Date Type Department Care Team (Late st Contact Info) Description 10/25/2024 Results Follow-Up [facility] Neurology - [address] [place] [phone] Buzz Parrish MD [address] [place] [address] [place] [id number] MRI BRAIN W/O&W CON Social History Tobacco Use Types Packs/Day Years Used Date Smoking Tobacco: Never Smokeless Tobacco: Never Alcohol Use Standard Drinks/Week Comments Not Currently 6 (1 standard drink = 0.6 oz pur e alcohol) Sex and Gender Information Value Date Recorded Sex Assigned at Not on file Legal Sex Male 12:10 PM ENG[employer] Gender Identity Not on file Sexual Orientation Not on file documented as of this encounter Plan of Treatment Not on file documented as of this encounter Visit Diagnoses Not on filedocumented in this encounter Care Teams C[employer]er [employer] Well Relationship Specialty Start Date End Date Gallo Mejia MD PCP - General 07/12/22 Buzz Parrish MD [address] [place] [address] [place] [phone] Neurology 07/12/22 documented as of this encounter
--- OUTSIDE RECORDS SUMMARY | 2025-01-16 09:32 | XMS_ITS | Clinical Summary ---
Author Organization [facility] Address [address] [place] [id number] Care Team Providers Care Beater Room Helper Name Role Phone Gallo Mejia MD Primary Care Provider Unavail able Buzz Parrish MD Unavailable [phone] Allergies Active Allergy Reactions Criticality Noted Date Comments Clindamycin Anaphylaxis High 06/13/2014 Angioedema Diphenhydramine Hives 06/13/2014 Dulaglutide Nausea 09/14/2021 Erythromycin Base 02/20/2022 Lamotrigine Rash Medium 11/30/2023 Metformin Diarrhea 09/14/2021 Penicillins Unknown,Anaphylaxis High 10/26/2012 Potassium Clavulanate Unknown 08/16/2021 Sulfamethoxazole-Trimethoprim Anaphylaxis,Hives High 06/06/2014 Angioedema Vancomycin Unknown,Anaphylaxis High 11/05/2012 Medications omeprazole (PRILOSEC) 40 mg oral delayed release capsule Take 1 capsule (40 mg) by mouth Daily. 023 Active ondansetron (ZOFRAN) 4 mg oral ODT Take 1 tablet (4 mg) under the tongue every 8 (eight) hours as needed. 022 Active insulin glargine, pen, (LANTUS SOLOSTAR U-100 INSULIN) 100 unit/mL SubQ pen as directed. 023 Active TRESIBA FLEXTOUCH U-100 100 unit/mL (3 mL) SubQ InPn INJECT 100 UNITS SUBCUTANEOUSLY IN THE MORNING AND 50 IN THE EVENING 022 Active lisinopriL (PRINIVIL) 20 mg oral tablet 024 Active rosuvastatin (CRESTOR) 10 mg oral tablet Take 1 tablet (10 mg) by mouth Daily. 025 Active mirtazapine (REMERON) 15 mg oral tablet TAKE 2 TABLETS BY MOUTH AT NIGHT 180 tablet 3 025 Active propranoloL (INDERAL LA) 60 mg oral extended release capsule 24 HR Take 1 capsule (60 mg) by mouth once daily. 90 capsule 3 025 Active Sumatriptan Succinate 6 mg/0.5 mL SubQ Take 1 injection at the onset of headache. 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) TAKE 1 TABLET BY MOUTH TWICE DAILY 60 tablet 3 025 2024 Discontinued Active Problems Problem Noted Date Diagnosed Date Headache 11/07/2023 Nonintractable epilepsy without status epileptic us 11/02/2022 Primary hypertension 09/13/2022 Autism spectrum disorder requiring support (leve l 1) 08/30/2022 Generalized seizure 07/11/2022 Unspecified adrenocortical insufficiency 023 Functional abdominal pain syndrome 12/16/2021 Pancreatic insufficiency 12/16/2021 Irritable bowel syndrome wit h both constipation and diarrhea 06/01/2021 Chronic pancreatitis 06/01/2021 Chronic midline low back pain with sciatica 11/2019 Peripheral sensory neuropathy 02/19/2020 Varicose veins of bilateral lower extremities with other complications 07/03/2018 Post-concussion headache 07/23/2015 Overview (11/07/2023): See Neuro visit 07/23/15 Anxiety disorder 07/18/2014 Recurrent major depression 07/18/2014 Type 2 diabetes mellitus without complication GERD (gastroesophageal reflux disease) 4 Hyperthyroidism 11/07/2012 Encounters Date Type Department Care Team Description 10/25/2024 Results Follow-Up [facility] [address] [place] [address] Buzz Parrish MD MRI BRAIN W/O&W CON 10/24/2024 4:30 PM CDT Ancillary Procedure [facility] [address] [id number] Reversible cerebrovascular vasoconstriction syndrome 10/22/2024 10:00 AM CDT Office Visit [facility] [address] [place] [address] Buzz Parrish MD Reversible cerebrovascular vasoconstriction syndrome (Primary Dx); Chronic migraine with aura without status migrainosus, not intractable; Complex partial seizure (HCC) from Last 3 Months Immunizations Immunization Administration Dates Next Due DTaP/HIB 09/08/2008 HIB PRP-T 09/08/2008 Hep B Adult 09/21/2020,01/15/2020 HepA/HepB Adult 10/05/2016 Influenza recombinant (FluBl ok Quadrivalent PF) 04/11/2022,04/06/2022,04/16/2021,2019 Influenza split virus (Fluzo ne Quadrivalent PF) 04/11/2022,04/06/2022,04/16/2021,2019 Pfizer 12+ Yrs Bivalent COVI D Vaccine (yates cap) 04/15/2022 Pneumococcal PCV20 11/02/2022 Pneumococcal PPSV23 01/15/2020 SPIKEVAX (Moderna) 12+ Yrs M onovalent COVID Vaccine (risk reduction counselor) 04/16/2021,09/21/2020,08/24/2020 Tdap 07/22/2017,09/08/2008,05/15/2008 Family History Medical History Relation Comments Colon Cancer Father Heart Disease Maternal Grandfather High Blood Pressure Maternal Grandfather Lung Cancer Maternal Grandfather Liver Disease Maternal Grandmother Diabetes Paternal Grandfather Diabetes Paternal Grandmother Heart Disease Paternal Grandmother Seizures Sister Relation Status Comments Father Maternal Grandfather Maternal Grandmother Paternal Grandfather Paternal Grandmother Sister Social History Tobacco Use Types Packs/Day Years Used Date Smoking Tobacco: Never Smokeless Tobacco: Never Tobacco Cessation:Counseling Given: No Alcohol Use Standard Drinks/Week Comments Not Currently 6 (1 standard drink = 0.6 oz pur e alcohol) Sex and Gender Information Value Date Recorded Sex Assigned at Not on file Legal Sex Male 12:10 PM DIRECTOR BROADCAST Gender Identity Not on file Sexual Orientation Not on file Last Filed Vital Signs Vital Sign Reading Time Taken Comments Blood Pressure 143/97 07/13/2022 12:37 PM DIRECTOR BROADCAST Pulse 102 07/13/2022 12:37 PM DIRECTOR BROADCAST Temperature - - Respiratory Rate 12 12/07/2022 10:41 AM CDT Oxygen Saturation - - Inhaled Oxygen Concentration - - Weight 107.5 kg (237 lb) 10/22/2024 10:50 AM CDT Height 175.3 cm (5' 9) 10/22/2024 10:50 AM CDT Body Mass Index 35 10/22/2024 10:50 AM CDT Plan of Treatment Health Maintenance Due Date Last Done Comments Colonoscopy 1977 Eye Exam 1977 HgbA1C 1977 Anxiety Follow-Up (ASUNCION-7) 1978 Depression Follow-Up (PHQ-9) 1978 COVID-19 Vaccine ( season) 2025 04/15/2022, 04/16/2021, 09/21/2020, Additional history exists Influenza Vaccine (#1) 2025 , 04/11/2022, 04/06/2022, Additional history exists Microalbumin Q12 Month 08/02/2025 08/02/2024, 2012 Creatinine 09/23/2025 09/23/2024, 03/05/2024, 09/27/2023, Additional history exists Thyroid-Stimulating Hormone (TSH) 09/23/2025 09/23/2024, 09/29/2022 Adult Tetanus Booster 07/23/2027 07/22/2017 , 09/08/2008, 05/15/2008 RSV Vaccines (1 - 1-dose 75+ series) 2052 Hepatitis C Screening Completed 02/22/2022 Pneumococcal Vaccine Completed 11/02/2022, 01/15/20 HPV Vaccine Aged Out No longer eligi ble based on patient's age to complete this topic Meningococcal B Vaccine Aged Out No l onger eligible based on patient's age to complete this topic Procedures Procedure Name Priority Date/Time Associated Diagnosis Comments MRI BRAIN W/O&W CON Routine 10/24/2024 4:47 PM CDT Reversible cerebrovascular vasoconstriction syndrome from Last 3 Months Results * MRI BRAIN W/O&W CON (10/24/2024 4:47 PM CDT) Anatomical Region Laterality Modality Head Magnetic Resonan ce 10/24/2024 4:53 PM CDT Impressions 10/24/2024 4:57 PM CDT Normal exam. SIGNED BY: Pasha Allen M.D. Narrative 10/24/2024 4:57 PM CDT EXAM: MRI BRAIN W/O&W CON 10/24/2024 CLINICAL INFORMATION: I67.841 Reversible cerebrovascular vasoconstriction syndrome TECHNIQUE: Sagittal FLAIR T1, axial FLAIR T2, axial fat saturated FSE T2, axial DWI, axial T1, axial GRE, axial and coronal T1 post gadolinium. 10 cc Gadavist was administered intravenously. COMPARISON: Previous [facility] brain MRI dated August 04, 2022 FINDINGS: ACUTE ABNORMALITIES: There is no abnormal mass lesion, hemorrhage, or restricted diffusion. No abnormal gadolinium enhancement. BRAIN PARENCHYMA: No focal parenchymal signal abnormality. VENTRICLES/BRAIN VOLUME: Normal for age. DEEP YATES NUCLEI: Normal in appearance. POSTERIOR FOSSA: Brainstem and cerebellum demonstrate a normal appearance. PARANASAL SINUSES: No significant inflammatory mucosal thickening. Procedure Note Pasha Allen MD - 10/24/2024 EXAM: MRI BRAIN W/O&W CON 10/24/2024 CLINICAL INFORMATION: I67.841 Reversible cerebrovascular vasoconstrictionsyndrome TECHNIQUE: Sagittal FLAIR T1, axial FLAIR T2, axial fat saturated FSE T2,axial DWI, axial T1, axial GRE, axial and coronal T1 post gadolinium. 10cc Gadavist was administered intravenously. COMPARISON: Previous [facility] brain MRI dated 2022 FINDINGS: ACUTE ABNORMALITIES: There is no abnormal mass lesion, hemorrhage, orrestricted diffusion. No abnormal gadolinium enhancement. BRAIN PARENCHYMA: No focal parenchymal signal abnormality. VENTRICLES/BRAIN VOLUME: Normal for age. DEEP YATES NUCLEI: Normal in appearance. POSTERIOR FOSSA: Brainstem and cerebellum demonstrate a normalappearance. PARANASAL SINUSES: No significant inflammatory mucosal thickening. IMPRESSION Normal exam. SIGNED BY: Pasha Allen M.D. us Buzz Parrish MD MRI ORDERABLE Final Re sult from Last 3 Months Insurance [employer] OPEN ACCESS/CHOICE Care Teams Beater Room Helper Relationship Specialty Start Date End Date Gallo Mejia MD PCP - General 07/12/22 Buzz Parrish MD [address] [place] [address] Neurology 07/12/22
--- OUTSIDE RECORDS SUMMARY | 2025-01-16 09:32 | XMS_ITS | Clinical Summary ---
Author Organization [facility] Address [address] [place] [address] Care Team Providers Care Research Microbiologist Name Role Phone Christine Marr MD Primary [...] Comments Blood Pressure 132/86 06/23/2014 1:43 PM MERIT SYSTEM DIRECTOR Pulse 100 06/23/2014 1:43 PM MERIT SYSTEM DIRECTOR Temperature 36.7 C (98 F) 06/23/2014 1:43 PM MERIT SYSTEM DIRECTOR Respiratory Rate 20 06/23/2014 1:43 PM MERIT SYSTEM DIRECTOR Oxygen Saturation 96% 06/23/2014 1:43 PM MERIT SYSTEM DIRECTOR Inhaled Oxygen Concentration - - Weight 115.8 kg (255 lb 5 oz) 06/23/2014 1:43 PM MERIT SYSTEM DIRECTOR Height 175.3 cm (5' 9) 06/20/2014 4:01 PM MERIT SYSTEM DIRECTOR Body Mass Index 37.7 06/20/2014 4:01 PM MERIT SYSTEM DIRECTOR Plan of Treatment Health Maintenance Due Date [...] (once per calendar year) 2024 INFLUENZA VACCINE (#1) 2025 , 04/06/2022, 04/16/2021, Additional history exists ZOSTER VACCINE (1 of 2) 2027 DTAP/TDAP/TD VACCINE (5 - Td or Tdap) 07/23/2027 07/22/2017, 09/08/2008, 09/08/2008, Additional history exists HEPATITIS C SCREENING Completed 11/07/2012 HIV SCREENING Completed 11/07/2012 HEPATITIS B VACCINE Completed 11/16/2020, 01/15/2020, 10/05/2016 HPV VACCINE (No Doses Required) Completed MENINGITIS VACCINE Aged Out No longer eligible based on patient's age to complete this topic Procedures Procedure Name Priority Date/Time Associated Diagnosis Comments BASIC METABOLIC PANEL STAT 06/20/2014 4:42 PM MERIT SYSTEM DIRECTOR Elevated blood pressure C FOOT EXAM Routine 05/30/2014 1:50 PM MERIT SYSTEM DIRECTOR Screening for diabetic peripheral neuropathy HEMOGLOBIN A1C Routine 01/29/2014 2:42 PM CDT Diabetes mellitus, type 2; BP Goal <140/90 COLONOSCOPY Routine 01/17/2014 11:01 AM CDT OCCULT BLOOD STOOL STAT 01/10/2014 5: 35 AM CDT LIPID PROFILE Routine 07/26/2013 12:21 PM CDT DM (diabetes mellitus) (H) ALBUMIN AND CREATININE WITH RATIO RANDOM URINE QUANTITATIVE Routine 11/07/2012 3:13 PM CDT DM (diabetes mellitus) (H) HIV 1 AND 2 ANTIBODY (QUEST) Routine 11/07/2012 3:12 PM CDT Routine physical examination HEPATITIS C ANTIBODY Routine 11/07/2012 3:12 PM CDT Routine physical examination from Last 3 Months or Most Recently Relevant to Health Maintenance Results * (ABNORMAL) Basic metabolic panel (06/20/2014 4:42 PM MERIT SYSTEM DIRECTOR) Sodium 138 133 - 144 mmol/L [facility] Potassium 3.8 3.4 - 5.3 mmol/L [facility] Chloride 102 94 - 109 mmol/L [facility] Carbon Dioxide 28 20 - 32 mmol/L [facility] Anion Gap 8 3 - 14 mmol/L [facility] Glucose 105(H) 70 - 99 mg/dL [facility] Comment: Effective 12/11/2013, the reference range for this assay has changed to reflect new instrumentation/methodology. Urea Nitrogen 16 7 - 30 mg/dL [facility] Comment: Effective 12/11/2013, the reference range for this assay has changed to reflect new instrumentation/methodology. Creatinine 1.01 0.66 - 1.25 mg/dL [facility] GFR Estimate 83 >60 mL/min/1. 7m2 [facility] Comment:Non GFR Calc GFR Estimate If Black >90 GFR Calc >60 mL/min/1. 7m2 [facility] Calcium 9.5 8.5 - 10.1 mg/dL [facility] Comment: Effective 12/11/2013, the reference range for this assay has changed to reflect new instrumentation/methodology. Blood specimen (specimen) 06/20/2014 4:42 PM MERIT SYSTEM DIRECTOR 06/20/2014 4:53 PM MERIT SYSTEM DIRECTOR us Karel Mendiola APRN, CNP LAB - BLOOD ORDERABLES Final Result [facility] [address] [place] [address] * Hemoglobin A1c (01/29/2014 2:42 PM CDT) Hemoglobin A1C 5.9 4.3 - 6.0 % [facility] Blood specimen (specimen) 01/29/2014 2:42 PM CDT 01/29/2014 2:44 PM CDT us Christine Marr MD LAB - BLOOD ORDERABLE S Final Result [facility] [address] [place], [place] [id number] * COLONOSCOPY (01/17/2014 11:01 AM CDT) COLONOSCOPY [facility] Patient Name: Kaiden Mcdanielden Procedure Date: 01/17/2014 11:01:32 AM Date of [...] oxygen saturations were monitored continuously. The [id number] was introduced through the anus and advanced [...] MD PROCEDURES Final Result Performing Organization Address [facility] Co de Phone Number RADIOLOGY RESULTS * Stool: occult blood (01/10/2014 5:35 AM CDT) Occult Blood Negative [facility] Stool specimen (specimen) 01/10/2014 5:35 AM CDT 01/10/2014 7:01 AM CDT Ethan Barksdale MD LAB - STOOLS ORDERABLES Fin al Result Performing Organization Address City/[facility]/ZIP Co de Phone Number [facility] [address] [place] [address], [facility] [phone] * (ABNORMAL) Lipid Profile (Chol, Trig, HDL, LDL calc) (07/26/2013 12:21 PM CDT) Cholesterol 158 <200 mg/dL [facility] Comment: LDL Cholesterol is the primary guide to therapy. The NCEP recommends further evaluation of: patients with cholesterol greater than 200 mg/dL if additional risk factors are present, cholesterol greater than 240 mg/dL, triglycerides greater than 150 mg/dL, or HDL less than 40 mg/dL. Triglycerides 88 0 - 150 mg/dL [facility] HDL Cholesterol 33(L) >40 mg/dL [facility] LDL Cholesterol Calculated 108 0 - 129 mg/dL [facility] Comment: LDL Cholesterol is the primary guide to therapy: LDL-cholesterol goal in high risk patients is <100 mg/dL and in very high risk patients is <70 mg/dL. VLDL-Cholesterol 18 0 - 30 mg/dL [facility] Cholesterol/HDL Ratio 4.9 0.0 - 5.0 [facility] Blood specimen (specimen) 07/26/2013 12:21 PM CDT 07/26/2013 12:24 PM CDT Jensen Melendez MD LAB - BLOOD ORDERABLES Final Result [facility] [address] [place] [address] * Microalbumin quantitative, random urine (11/07/2012 3:13 PM CDT) Creatinine Urine 178 mg/dL [facility] Albumin Urine mg/L <5 Urine Microalbumin lowest reportable value has been changed from 2 mg/L to 5 mg/L due to a methodology change on August. mg/L [facility] Albumin Urine mg/g Cr Unable to calculate 0 - 17 mg/g Cr [facility] Urine specimen (specimen) 11/07/2012 3:13 PM CDT 11/07/2012 3:16 PM CDT us Jensen Melendez MD LAB - URINE ORDERABLES Final Result [facility] [address] [place] [address] * HIV 1 and 2 Antibody (11/07/2012 3:12 PM CDT) HIV 1&2 Antibody Negative [facility] Blood specimen (specimen) 11/07/2012 3:12 PM CDT 11/07/2012 3:15 PM CDT Jensen Melendez MD LAB - BLOOD ORDERABLES Final Result [address] * Hepatitis C antibody (11/07/2012 3:12 PM CDT) Hepatitis C Antibody Negative [facility] Blood specimen (specimen) 11/07/2012 3:12 PM CDT 11/07/2012 3:15 PM CDT Jensen Melendez MD LAB - BLOOD ORDERABLES Final Result Performing Organization Address City/[facility] Co de Phone Number [address] from Last 3 Months or Most Recently Relevant to Health Maintenance Additional Health Concerns Infection Onset Date Last Indicated MRSA-Contact Isolation Comment:Skin 12-25-2012 01/02/2013 01/02/2013 Insurance [place] Advance Directives For more information, please contact: [phone] * Full Code (Latest Code Status on File) Date Activated Date Inactivated Comments 10/28/2012 8:54 AM * Full Code Date Activated Date Inactivated Comments 10/26/2012 5:12 AM 10/28/2012 8:54 AM Care Teams Research Microbiologist Relationship Specialty Start Date End Date Christine Marr MD PCP - General Pediatrics 01/14/14
--- OUTSIDE RECORDS SUMMARY | 2025-01-16 09:33 | XMS_ITS | Clinical Summary ---
Author Organization [facility] Address [address] [place] [id number] Care Team Providers Care Work Counselor Name Role Phone Amy Joaquin DO Primary Care Provider [phone] Allergies Active Allergy Reactions Criticality Noted Date Comments Sulfamethoxazole-Trimethoprim Hives 2014 Clindamycin Anaphylaxis 06/16/2014 Diphenhydramine Hcl Hives 02/18/2016 Metformin Diarrhea 09/14/2021 Penicillins *Unknown 06/15/2013 Potassium Clavulanate *Unknown 08/16/2021 Dulaglutide Nausea And Vomiting 09/14/2021 Vancomycin *Unknown 06/15/2013 Medications glucagon (Glucagon Emergency Kit, human,) 1 mg injectionIndicati ons:Pancreatic insufficiency (HC) Inject 1 mg As Directed each time if needed (symptomatic hypoglycemia <50 and not responding to oral glucose). 3 Each 2 07/30/19 22 Active mirtazapine (REMERON) 15 mg tablet Take 15 mg by mouth at bedtime. Active lacosamide (VIMPAT) 100 mg tabletIndications :Focal epilepsy (HC) Take 1.5 tablet at night, 1 tablet when you get up in the morning 09/27/19 24 Active Briviact 25 mg tablet Take 25 mg by mouth two times daily. 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 1 Each 08/03/19 25 Active SUMAtriptan 100 mg tabletIndications :Migraine syndrome Take by mouth. 08/03/19 25 Active triamcinolone 0.5 % creamIndications: Chronic eczema Apply topically to affected area(s) two times daily. 15 g 08/03/19 25 Active rosuvastatin 10 mg tabletIndications :Type 2 diabetes mellitus with obesity (HC) Take 1 Tablet (10 mg) by mouth at bedtime. 90 Tablet 3 08/13/19 25 Active lisinopriL 20 mg tabletIndications :HTN (hypertension) TAKE 1 TABLET(20 MG) BY MOUTH EVERY DAY 90 Tablet 3 09/28/19 25 Active Lantus Solostar U-100 Insulin 100 unit/mL (3 mL) penIndications:Ty pe 2 diabetes mellitus with obesity (HC) Inject 60 units subcutaneous once daily. Product desired: LANTUS SOLOSTAR 54 mL 3 10/19/19 25 Active pen needle 32 gauge x 5/32 (disposable insulin pen needle)Indication s:Type 2 diabetes mellitus treated with insulin (HC) Inject subcutaneous. Remove the 2 covers on the insulin pen needle before administering insulin dose. 100 Each 2 01/07/20 25 Active Insulin [place], Disposable, 32 gauge x 5/32Indications: Type 2 diabetes mellitus treated with insulin (HC) As directed. Remove the 2 covers on the insulin pen needle before administering insulin dose. 100 Each 2 09/30/19 23 025 Discontin ued(Reord er (E-cancel not sent)) Active Problems Problem Noted Date Diagnosed Date Irritable bowel syndrome with diarrhea 5 Concussion 09/23/2024 Nonintractable epilepsy without status epileptic us 11/02/2022 Primary hypertension 09/13/2022 Diverticular disease of large intestine 09/01/19 23 Autism spectrum disorder requiring support (talon l 1) 08/30/2022 Diabetes mellitus type 2 [...] Care Team Description 10/18/2024 Phone Office Visit [facility] [address] [place] [address] Nhung Kincaid PA from Last 3 Months Immunizations Immunization Administration Dates Next Due COVID-19 vaccine (Moderna 10 0mcg/0.5mL) PF, MDV 09/21/2020,08/24/2020 COVID-19 vaccine (Moderna Pankaj kenyetta 50mcg/0.25mL) PF, MDV 04/16/2021 COVID-19 vaccine (Pfizer-Bio NTech 30mcg/0.3mL) 12YO+ BIVALENT PF, MDV 04/15/2022 [...] on file 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 Gender Identity Not on file Sexual Orientation [...] Care Team (Late st Contact Info) Description 01/16/2025 1:40 PM CDT Office Visit [facility] [address] [place] [address] Amy Joaquin DO [address] [place] [address] Health Maintenance Due Date Last Done Comments COVID-19 vaccine series ( season) 2025 04/15/2022, 04/16/2021, 09/21/2020, Additional history exists Influenza Vaccine (#1) 2025 , 04/16/2021, 01/15/2020 BMI (ht and wt on same day) for age 18+ 08/02/2025 08/02/2024, 09/27/2023, 10/06/2022, Additional history exists Depression screening for age 12+ 08/02/2025 08/02/2024, 11/17/2022, 10/06/2022, Additional history exists Tetanus booster 07/23/2027 07/22/2017, 08/14, 05/15/2008 Lipids for age 45-75 08/02/2029 08/02/2024, 02/22/2022, 04/01/2021, Additional history exists Colonoscopy through age 75 09/01/2031 08/31/2021 RSV vaccine for adults or (1 - 1-dose 75+ series) 2052 Hepatitis B series for 19+ Completed 11/16, 01/15/2020, 10/05/2016 Hepatitis C screening for ag e 18-79 Completed 02/22/2022 Pneumococcal series for age 6-49 Completed 11/03/19 23, 01/15/2020 HIV for age 15-65 Completed 08/02/2024 Procedures Procedure Name Priority Date/Time Associated Diagnosis Comments ANTI HIV 1/2 Routine 08/02/2024 9:47 AM CDT Screening for HIV (human immunodeficiency virus) LIPID PANEL W REFLEX MEASURED LDL Routine 08/02/2024 9:47 AM CDT Annual physical exam ANTI HCV Add On 02/22/2022 8:43 AM CDT Need for hepatitis C screening test COLONOSCOPY 08/31/2021 1:38 PM CDT from Last 3 Months or Most Recently Relevant to Health Maintenance Results * (ABNORMAL) LIPID PANEL W REFLEX MEASURED LDL (08/02/2024 9:47 AM CDT) CHOLESTEROL, TOTAL 249(H) <200 mg/dL [facility] HDL CHOLESTEROL 47 > OR = 40 mg/dL [facility] TRIGLYCERIDES 285(H) <150 mg/dL [facility] Comment: If a non-fasting specimen was collected, consider repeat triglyceride testing on a fasting specimen if clinically indicated. Jason et al. J. of Clin. Lipidol. 2015;9:129-169. LDL-CHOLESTEROL 155(H) mg/dL (calc) [facility] Comment: Reference range: <100 Desirable range <100 mg/dL for primary prevention; <70 mg/dL for patients with CHD or diabetic patients with > or = 2 CHD risk factors. LDL-C is now calculated using the Kwame-Lay calculation, which is a validated novel method providing better accuracy than the Friedewald equation in the estimation of LDL-C. Kwame SS et al. ALBERTA. 2013;310(19): 0393-0619 (http://education.Liftago/faq/UVH883) CHOL/HDLC RATIO 5.3(H) <5.0 (calc) [facility] NON HDL CHOLESTEROL 202(H) <130 mg/dL (calc) [facility] Comment: For patients with diabetes plus 1 major ASCVD risk factor, treating to a non-HDL-C goal of <100 mg/dL (LDL-C of <70 mg/dL) is considered a therapeutic option. Blood BLOOD SPECIMEN / Unknown 08/02/2024 9:47 AM CDT 08/02/2024 9:47 AM CDT Narrative [facility] - 08/03/2024 3:17 AM CDT FASTING:NO FASTING: NO Amy Joaquin DO CHEMISTRY Final Result [facility] [address] [place] [address], [facility] [address] [place] [address] * ANTI HIV 1/2 [20974.0] (08/02/2024 9:47 AM CDT) [facility] Signature HIV AG/AB, 4TH GEN NON-REACT GAIL NON-REACT GAIL [facility] Comment: HIV-1 antigen and HIV-1/HIV-2 antibodies were [...] purpose. For additional information please refer to http://education.TyraTech.CEINT/faq/VQZ119 (This link is being provided for informational/ educational purposes only.) The performance of this assay has not been clinically validated in patients less than 2 years old. Blood BLOOD SPECIMEN / Unknown 08/02/2024 9:47 AM CDT 08/02/2024 9:47 AM CDT Narrative [facility] - 08/05/2024 12:36 PM CDT FASTING:NO FASTING: NO us Amy Joaquin SEND OUTS Final Result [facility] [address] [place] [address], [place] [phone] [facility] [address] [place] [address] * ANTI HCV (02/22/2022 8:43 AM CDT) HEPATITIS C ANTIBODY Non-React gail Non-React gail 02/23/2022 3:50 PM CDT [facility] Comment:Antibodies to HCV no t detected; does not exclude the possibility of exposure to HCV. Blood BLOOD SPECIMEN / Unknown Venipuncture / Unknown 02/22/2022 8:43 AM CDT 02/22/2022 8:45 AM CDT Leonor Delgado MD SEND OUTS Final Res ult [facility] [address] [place] [address], [place] * COLONOSCOPY (08/31/2021 1:38 PM CDT) 08/31/2021 1:38 PM CDT Narrative Transcriptions Yoan Santos MD - 08/31/2021 8:22 PM CDT [facility] Patient Name: Kaiden Reyna Procedure Date: 08/31/2021 Gender: Male Date of : 1975 Admit Type: Ambulatory Procedure: Colonoscopy Proceduralist: Yoan Santos MD - [facility] [address] [place] [address] Indications/Pre-Op Diagnosis: Screening for colorectal malignantneoplasm Medications: [...] to home. - Return to clinic at [facility] as scheduled. - Repeat colonoscopy for colorectal cancer screening in 10 years. Yoan Santos MD 08/31/2021 8:21:53 PM This report has been signed electronically. Note Initiated On: 08/31/2021 1:38 PM Yoan Santos MD PROCEDURE ORD Daysi l Result from Last 3 Months or Most [...] Code Status Discussion: Reviewed Preferences Care Teams Work Counselor Relationship Specialty Start Date End Date [place] [address] PCP - General Family Practice 08/02/24
[2025-01-16 09:37] VITALS: BP 122/87; PULSE 81; RESP 16; TEMP 36.7; O2SAT 95; BMI 35.0
--- NOTE | 2025-01-16 09:44 | CRLHL7_ITS ---
For Patients: As a result of the Cures Act, medical imaging exams and procedure reports are released immediately into your electronic medical record. You may view this report before your referring provider. If you have questions, please contact your health care provider. Indication: fall, pain Technique: Three views of the left shoulder. Comparison: None. Findings: No acute displaced fracture or malalignment. Mild degenerative changes of the acromioclavicular joint. Subtle calcifications at the expected insertion of the supraspinatus tendon may represent calcific tendinosis. Impression: No acute displaced fracture or malalignment. Dictated by Wilfred Pickett MD @ 01/16/2025 10:20:30 AM (Electronically Signed)
--- NOTE | 2025-01-16 09:47 | ED.GENADULT ---
HPI - General Adult General Time Seen by Provider: 09:47 Date Seen: 01/16/25 Chief complaint: Shoulder Injury/Pain Stated complaint: Fall, L shoulder injury Time Seen by Provider: 01/16/25 09:47 Source: patient and RN notes reviewed Mode of arrival: ambulatory Limitations: no limitations History of Present Illness HPI narrative: This 49-year-old male is coming in with left shoulder pain. His legs just gave out when he was leaving the house to go to work, fell, is left shoulder went up against the house wall. He then went down to the ground. He denies any loss of consciousness, has no head pain, did not hit his head. Has no neck or back pain. He felt no palpitations, no chest pain, no other reason for the fall. He does have a seizure disorder but he is sure he did not have a seizure, his is here and corroborates that. He felt a pop in his shoulder. He took Tylenol about 830 this morning. He would appreciate something for pain management on questioning. Denies any numbness or tingling. Nothing else was injured. Related Data Home Medications ?Medication ?Instructions ?Recorded ?Confirmed ondansetron 4 mg disintegrating 4 mg PO TID PRN 12/09/21 01/16/25 tablet glucagon 1 mg solution for 1 mg 12/21/21 02/20/22 injection (Glucagon Emergency Kit) ibuprofen 600 mg 12/21/21 02/20/22 insulin glargine 100 unit/mL (3 60 unit subcut BID 10/25/23 01/16/25 mL) subcutaneous pen (Lantus Solostar U-100 Insulin) lacosamide 100 mg tablet 100 mg PO QHS 10/25/23 01/16/25 lisinopril 20 mg tablet 20 mg PO DAILY 10/25/23 01/16/25 mirtazapine 15 mg tablet 30 mg PO QHS 10/25/23 01/16/25 brivaracetam 25 mg tablet 25 mg PO BID 05/01/24 01/16/25 (Briviact) sumatriptan succinate 100 mg tablet 100 mg PO DAILY 05/01/24 01/16/25 rosuvastatin 10 mg tablet 10 mg PO QPM 10/21/24 01/16/25 baclofen 10 mg tablet 10 mg PO QPM 01/16/25 01/16/25 propranolol 60 mg capsule,24 mg PO 01/16/25 hr,extended release Previous Rx's ?Medication ?Instructions ?Recorded ketorolac 10 mg tablet 10 mg PO TID 5 days #15 tabs 10/21/24 rizatriptan 10 mg tablet (Maxalt) 10 mg PO Q2-4H PRN migraine 10/21/24 headache #10 tabs Allergies Allergy/AdvReac Type Severity Reaction Status Date / Time sulfamethoxazole (From Allergy Mild Verified 01/16/25 09:35 Bactrim) trimethoprim (From Bactrim) Allergy Mild Verified 01/16/25 09:35 clindamycin Allergy Verified 01/16/25 09:35 diphenhydramine Allergy Verified 01/16/25 09:35 dulaglutide Allergy Verified 01/16/25 09:35 erythromycin base Allergy Verified 01/16/25 09:35 Penicillins Allergy Verified 01/16/25 09:35 vancomycin Allergy Verified 01/16/25 09:35 Review of Systems Narrative: [facility] History Chronic pancreatitis ?K86.1 - Other chronic pancreatitis (ICD-10) Pancreatic insufficiency ?K86.89 - Other specified diseases of pancreas (ICD-10) Diabetes mellitus type 2 in obese ?E11.69 - Type 2 diabetes mellitus with other specified complication (ICD-10) ?E66.9 - Obesity, unspecified (ICD-10) Obesity ?E66.9 - Obesity, unspecified (ICD-10) Anxiety ?F41.9 - Anxiety disorder, unspecified (ICD-10) Family History Mother Crohn's disease Autoimmune disease of liver Cirrhosis of liver Father Colon cancer Social History Narrative: He lives in [place] with his and 18-year-old daughter. is healthcare power of workers compensation attorney. 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 He has been temporarily on disability. He does not smoke, drink alcohol or use recreational drugs. Code status is full. Smoking Status: Never smoker Do you use any of these nicotine containing products: None Second hand tobacco smoke exposure: No How often do you have a drink containing alcohol: monthly or less AUDIT-C Alcohol total score: 1 Non-prescribed substance use: marijuana (any form) service: No Exam Const: Vital Signs, click to edit/add: Vital Signs - 24 hr 01/16/25 09:37 Temperature 98.0 F Pulse Rate [Pulse Oximeter] 81 Respiratory Rate 16 Blood Pressure [Ri ght Upper Arm] 122/87 Pulse Oximetry 95 Oxygen Delivery Me thod Room Air This 49-year-old male is seen in exam room for come he is alert, interactive, no apparent distress. Has his arm in a sling that he had. His clavicle palpates nontender. He complains of pain when I palpate the humeral head but I do not feel any definite dislocation. Did not take him through any range of motion at this point, he states any range of motion is painful. He has an excellent radial pulse, normal warmth fingers with normal cap refill. He states he can feel his fingers normally. Documenting provider has reviewed patient's vital signs: yes Course Course ED Course: As patient has a seizure disorder, would avoid tramadol. He has tolerated Percocet in the past. Will give him 5 mg oxycodone as he already had some Tylenol this morning. Nursing staff appropriately ordered x-ray imaging of the shoulder, we will await this. Will also order an ice pack for him. Reevaluation(s) Time of Reevaluation #1: 10:31 Reevaluation #1: Reviewed with patient and his his negative x-ray imaging. Did provide them a copy. There is no fracture dislocation. We did review that the rotator cuff can get injured in falls. I do think that this is a possibility for him. Given that he is having pain with range of motion, does make me suspect the rotator cuff. We will have him follow up in clinic. He may need orthopedic referral, physical therapy, possible MRI of the shoulder if ongoing issues. Vital Signs Vital signs: Initial Vital Signs Temperature 98.0 F 01/16/25 09:37 Temperature Source Temporal Artery Scan 01/16/25 09:37 Pulse Rate 81 01/16/25 09:37 Pulse Rhythm Regular 01/16/25 09:37 Pulse Strength 3+ Normal 01/16/25 09:37 Respiratory Rate 16 01/16/25 09:37 Blood Pressure 122/87 01/16/25 09:37 Blood Pressure Mean 98 01/16/25 09:37 Blood Pressure Position Sitting 01/16/25 09:37 Pulse Oximetry 95 01/16/25 09:37 Oxygen Delivery Method Room Air 01/16/25 09:37 Vital Signs Temperature 98.0 F 01/16/25 09:37 Pulse Rate 81 01/16/25 09:37 Respiratory Rate 16 01/16/25 09:37 Blood Pressure 122/87 01/16/25 09:37 Pulse Oximetry 95 01/16/25 09:37 Oxygen Delivery Method Room Air 01/16/25 09:37 Temperature 98.0 F 01/16/25 09:37 Pulse Rate 81 01/16/25 09:37 Respiratory Rate 16 01/16/25 09:37 Blood Pressure 122/87 01/16/25 09:37 Pulse Oximetry 95 01/16/25 09:37 Oxygen Delivery Method Room Air 01/16/25 09:37 Medications Administered Medications: Discontinued Medications Generic Name Dose Route Start Last Admin Trade Name Freq PRN Reason Stop Dose Admin Oxycodone HCl 5 mg 01/16/25 09:52 01/16/25 10:06 Oxycodone 5 Mg Tablet PO 01/16/25 09:53 5 mg ONCE ONE Administration Medical Decision Making Imaging Data XR left shoulder: Attestation: I have reviewed the pertinent imaging results. My impression: Did visualize his imaging, I do not appreciate any fracture or dislocation. Radiologist's impression: Patient: [facility] Facility:?[facility] Patient ID:?[id number] Site Patient ID:?[id number]. Site :?1975 Study:?XRay-Shoulder Left 3 VIEW-01/16/2025 10:13:48 AM Ordering Physician:?Elver Wills Final Report: Indication: fall, pain Technique: Three views of the left shoulder. Comparison: None. Findings: No acute displaced fracture or malalignment. Mild degenerative changes of the acromioclavicular joint. Subtle calcifications at the expected insertion of the supraspinatus tendon may represent calcific tendinosis. Impression: No acute displaced fracture or malalignment. Dictated by Wilfred Pickett MD @ 01/16/2025 10:20:30 AM (Electronic Signature) Discharge Plan Discharge Clinical Impression: Acute pain of left shoulder Patient Disposition: Home, Self-Care Condition: Stable Instructions: Shoulder Pain (ED) Additional Instructions: Can use sling as needed for comfort in the meantime. Do recommend gentle range of motion of your shoulder, does not half to be significant or anything above your head but just gentle small circles with the arm hanging forward. This will help prevent frozen shoulder syndrome. Tylenol 1000 mg 3 times a day baseline for pain. Can use ibuprofen or NSAID of choice for additional pain control, follow bottle directions. Please contact your clinic or the orthopedic clinic to get scheduled for follow-up. If you choose the Orthopedic Clinic, phone number is [phone]. Ice shoulder to help decrease pain. Activity Level: Activity as Tolerated Prescriptions: No Action lisinopril 20 mg tablet 20 mg PO DAILY mirtazapine 15 mg tablet 30 mg PO QHS insulin glargine [Lantus Solostar U-100 Insulin] 100 unit/mL (3 mL) insulin pen 60 unit subcut BID lacosamide 100 mg tablet 100 mg PO QHS Patient Comments: 2.5 pills per day sumatriptan succinate 100 mg tablet 100 mg PO DAILY Briviact 25 mg tablet 25 mg PO BID rosuvastatin 10 mg tablet 10 mg PO QPM ketorolac 10 mg tablet 10 mg PO TID 5 Days Qty: 15 0RF rizatriptan [Maxalt] 10 mg tablet 10 mg PO Q2-4H PRN (Reason: migraine headache) Qty: 10 2RF Rx Instructions: do not exceed 3 doses per 24 hrs ondansetron 4 mg tablet,disintegrating 4 mg PO TID PRN Patient Comments: DISSOLVE 1 TABLET IN MOUTH EVERY 8 HOURS NEEDED FOR NAUSEA AND VOMITING Glucagon Emergency Kit (human) 1 mg recon soln 1 mg Patient Comments: INJECT 1MG DIRECTED EACH TIME IF NEEDED (SYMPTOMATIC HYPOGLYCEMIA LESS THAN 50 AND NOT RESPONDING TO ORAL GLUCOSE ibuprofen 600 mg propranolol 60 mg capsule,extended release 24 hr PO baclofen 10 mg tablet 10 mg PO QPM Follow Up/Referrals: Provider,Not a Local [Non-Staff, Family Practice] Stand Alone Forms: MyHealth Info Instructions
== END 2025-01-16 10:46 | disposition home or self-care (01) ==
PROVIDERS: Emergency Provider Family Medicine; PCP Student in an Organized Health Care Education/Training Program
DX: M25.512 Pain in left shoulder (principal); W01.10XA Fall on same level from slipping, tripping and stumbling with subsequent striking against unspecified object, initial encounter
CPT/HCPCS: 73030; 99283; A9270

== ENCOUNTER 2025-04-30 11:41 | Emergency (ER) | payer OTHER, SELFPAY ==
--- OUTSIDE RECORDS SUMMARY | 2025-04-30 11:44 | XMS_ITS | Clinical Summary ---
Author Organization [employer] [facility] Address [address] [place] [address] Care Team Providers Care Tea Leaf Reader Name Role Phone Amy Joaquin DO Primary Care Provider Allergies Active AllergyReactionsCriticalityNoted DateComments Sulfamethoxazole-PtleplyojdvtMjefr68/23/9591YdyezskgqspEhcnjhajdzj20/02/2015 Diphenhydramine UogYjtae02/06/8768YdvupafvzVaxyoqea69/03/2022Penicillins*Unknown 06/15/2013Potassium Clavulanate*Ymxjjsv09/04/2022DulaglutideNausea And Vomiting 09/14/2021Vancomycin*Sothbkp7206/15/2013 Medications MedicationSigDispense QuantityRefillsLast FilledStart DateEnd DateStatus glucagon (Glucagon Emergency Kit, human,) 1 mg injection Indications:Pancreatic insufficiency (HC)Inject 1 mg As Directed each time if needed (symptomatic hypoglycemia <50 and not responding to oral glucose). 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 90 Tablet 5Active lisinopriL 20 mg tablet Indications:HTN (hypertension)TAKE 1 TABLET(20 MG) BY MOUTH EVERY DAY 90 Tablet 5Active Lantus Solostar U-100 Insulin 100 unit/mL (3 mL) pen Indications:Type 2 diabetes mellitus with obesity (HC)Inject 60 units subcutaneous once daily. Product desired: LANTUS SOLOSTAR 54 mL 5Active pen needle 32 gauge x 5/32 (disposable insulin pen needle) Indications:Type 2 diabetes mellitus treated with insulin (HC)Inject subcutaneous. Remove the 2 covers on the insulin pen needle before administering insulin dose. 100 Each 5Active rizatriptan (MAXALT) 10 mg tablet TAKE 1 TABLET BY MOUTH EVERY 2-4HR NEEDED FOR MIGRAINE HEADACHE. DO NOT EXCEED 3 DOSES PER 24HRActive triamcinolone 0.5 % cream Indications:Chronic eczemaApply topically to affected area(s) two times daily. 15 g Discontinued(*Med complete/Regimen complete/Level of care change) cyclobenzaprine (FLEXERIL) 10 mg tablet Indications:Injury of left shoulder, initial encounterTake 1 Tablet (10 mg) by mouth at bedtime if needed for Muscle Spasm. 30 Tablet Discontinued(*Med complete/Regimen complete/Level of care change) celecoxib (CELEBREX) 200 mg capsule Indications:Injury of left shoulder, initial encounterTake 1 Capsule (200 mg) by mouth once daily with a meal. 30 Capsule Discontinued(*Med complete/Regimen complete/Level of care change) Active Problems ProblemNoted DateDiagnosed DateInjury of left ehgjmjbt40/22/2025iceps tendonitis on left02/03/2025Subacromial impingement of left dezvuexb55/22/2025 Subacromial bursitis of left shoulder joint02/03/2025Strain of left shoulder 02/03/2025Irritable bowel syndrome with xbapzabw47/12/7300Crdcmjocoa40/12/2025 Nonintractable epilepsy without status bpeckbktfru02/21/2023rimary hypertension 09/13/2022iverticular disease of large jwgwvxwyb68/19/2023utism spectrum disorder requiring support (level 1)08/30/2022iabetes mellitus type 2 in obese 08/30/2022 Overview (02/21/2025): Diagnosis Code replaced due to regulatory update Generalized mxoniox6607/11/2022Unspecified adrenocortical ulijbyulfhyut24/27/2023 Functional abdominal pain kqgmhkyp33/04/2022ancreatic ypyvpnkkmloic02/04/2022 Chronic recurrent objffnrqtnvu57/18/2022Irritable bowel syndrome with both constipation and ufmoglhr48/18/2022Elevated nibzya6405/25/2021 Overview (05/25/2021): CT scan 11/2020 Controlled type 2 diabetes mellitus with complication, with long-term current use of vetysij3503/04/2021hronic midline low back pain with urqakrbz44/07/2020 Peripheral sensory cvhvfaghoy72/07/2020Type 2 diabetes mellitus treated with dwuoqtz2207/03/2018Varicose veins of bilateral lower extremities with other oloykeagfyyaz81/19/2019Post-concussion nxewzgat02/10/2016 Overview (07/23/2015): See Neuro visit 07/23/15 MRSA (methicillin resistant staph aureus) culture /23/2015 Overview (03/06/2015): history of mrsa Anxiety dforrous96/06/2015Recurrent major lollwfolzu00/06/2015Hyperthyroidism 11/07/2012 Resolved Problems ProblemNoted DateDiagnosed DateResolved DateType 2 diabetes mellitus treated with ujkkxwx58Elevated alanine aminotransferase (ALT) level Type 2 diabetes mellitus with tlonsaipnlzt81/23/2015 07/03/20182516Gshoceegxg42 Encounters DateTypeDepartmentCare ZoymRfzpkcpmftd82/17/2025 9:10 AM CSTTelemedicine [facility] [address] [place] [address] Charlotte Dailey, BRENDA Telehealth (Stomach bug, vomiting and feeling tired and has been feeling ill since Monday )04/30/20255690Vfggch52/06/2025 10:15 AM CDTOffice Visit [facility] [address] [facility] [address] [place] [address] Ramirez Chester MD Recheck (Left Shoulder )02/17/20251037Hptekv78/30/2025 1:58 PM CDT - 02/11/2025 11:59 PM CDTHospital Encounter [address] [address] Ramirez Chester MD Vinar, Kaylin J, RETAIL LEADER 02/11/20250559Abqgnm90/23/2025 2:08 PM CDT - 02/04/2025 11:59 PM CDTHospital Encounter [address] [address] Ramirez Chester MD Iverson, Ryan, PT 02/03/2025 9:20 AM CDTAncillary Procedure [facility] [address] [facility] [address] [place] [address] 02/03/2025 9:15 AM CDTOffice Visit [facility] [address] [facility] [address] [place] [address] Ramirez Chester MD Consult (Left Shoulder)02/03/20252391Mbaodl17/17/2025 2:45 PM CDTAncillary Procedure [facility] [address] [facility] [address] [place] [address] 01/29/2025Travelfrom Last 3 Months Immunizations ImmunizationAdministration DatesNext DueCOVID-19 vaccine (Moderna 100mcg/0.5mL) PF, MDV09/21/2020,1COVID-19 vaccine (Moderna Booster 50mcg/0.25mL) PF, MDV11COVID-19 vaccine (Pfizer-BioNTech 30mcg/0.3mL) 12YO+ BIVALENT PF, MDV12DTaP-HIB (TriHIBIT)09/08/2008HepA-HepB (Twinrix)10/05/2016Hepatitis B (Adult)11/16/2020,01/15/2020Influenza, ZUM817/,04/16/2021,01/15/2020 Pneumococcal Conj 20-valent (Prevnar 20)3Pneumococcal Poly,23-Valent (Pneumovax)01/15/2020Tdap07/22/2017,09/08/2008,05/15/2008 Family History Medical HistoryRelationNameCommentsCancer-colonFatherArthritisMaternal GrandmotherOtherMaternal Grandmotherimmune deficiencyHeart DiseaseMotherDiabetes Paternal GrandmotherRelationNameStatusCommentsFatherDeceasedMaternal Grandmother MotherAlivePaternal Grandmother Social History Tobacco UseTypesPacks/DayYears UsedDateSmoking Tobacco: NeverPassive Smoke Exposure: PastSmokeless Tobacco: Never Tobacco Cessation:Counseling Given: Yes Alcohol UseStandard Drinks/WeekCommentsNo0 (1 standard drink = 0.6 oz pure alcohol)PHQ-2AnswerDate RecordedPHQ-2 TOTAL BQFNM097Social Connections AnswerDate RecordedDo you often feel lonely or isolated from those around you?0 01/20/2025lcohol UseAnswerDate RecordedHow often do you have a drink containing alcohol?How many drinks containing alcohol do you have on a typical day when you are drinking?How often do you have five or more drinks on one occasion?Financial Resource StrainAnswerDate Recorded Difficulty of Paying Living Tpljsdyr030/08/2025Difficulty of Paying Living ExpensesNot on file01/20/2025Food InsecurityAnswerDate RecordedDo you worry your food will run out before you are able to buy more?Transportation NeedsAnswerDate RecordedDoes lack of transportation keep you from medical appointments?Does lack of transportation keep you from work, meetings or getting things that you need?Housing StabilityAnswerDate Recorded What is your housing situation today?UtilitiesAnswerDate RecordedDo you have trouble paying for utilities (for example, heat, electricity, water, phone)?Sex and Gender InformationValueDate RecordedSex Assigned at BirthNot on fileLegal DieFvhj3906/15/2013 7:14 PM CSTGender IdentityNot on file Sexual OrientationNot on fileOccupationIndustryJob Start DateJob End DateNot on fileNot on fileNot on fileNot on file Last Filed Vital Signs Vital SignReadingTime TakenCommentsBlood Preqzvuy350/8301/20/2025 1:45 PM CDT Eumoe6280/08/2025 1:45 PM FCUKvyxlckdunf06.1 ??C (98.7 ??F)10/30/2022 9:16 AM CDTRespiratory Rrfv435710/30/2022 9:16 AM CDTOxygen Zgzszwjfyf98%01/20/2025 1:45 PM CDTInhaled Oxygen Concentration--Usmtxs106.7 kg (241 lb 12.8 oz)01/20/2025 1:45 PM OEOEjycob389 cm (5' 8.9)08/02/2024 8:56 AM CDTBody Mass Index35.81 08/02/2024 8:56 AM CDT Plan of Treatment Health MaintenanceDue DateLast DoneCommentsCOVID-19 vaccine series ( season)/06/2021, 04/16/2021, 09/21/2020, Additional history exists Influenza Vaccine (#1)/, 04/16/2021, 01/15/2020BMI (ht and wt on same day) for age 18+/, 09/27/2023, 10/06/2022, Additional history existsDepression screening for age 12+6008/02/2024, 11/17/2022, 10/06/2022, Additional history existsTetanus tnxhpye75/10/62049307/22/2017, 09/08/2008, 05/15/2008Lipids for age 45-750, 02/22/2022, 04/01/2021, Additional history existsColonoscopy through age [address]5009/01/2031 08/31/2021Hepatitis B series for 19+Wlzgnlnek78/05/2021, 01/15/2020, 10/05/2016 Hepatitis C screening for age 18-82Jxzppccog77/11/2022neumococcal series for age 6-47Evrhkjpqq52/21/2023, 01/15/2020HIV for age 15-37Xwemqdxyz05/21/2025 Procedures Procedure NamePriorityDate/TimeAssociated DiagnosisCommentsXR SHOULDER 1 VIEW LQUIJgqiiyj09/22/2025 9:20 AM CDT Left shoulder pain, unspecified chronicity MR SHOULDER LEFT GICenijii37/17/2025 3:09 PM CDT Injury of left shoulder, initial encounter ANTI HIV 1/6Sxjodlq89/21/2025 9:47 AM CDT Screening for HIV (human immunodeficiency virus) LIPID PANEL W REFLEX MEASURED QDYWvnpmod97/21/2025 9:47 AM CDT Annual physical exam ANTI HCVAdd On02/22/2022 8:43 AM CDT Need for hepatitis C screening test ODZGFQJASEN15/19/2022 1:38 PM CDT from Last 3 Months or Most Recently Relevant to Health Maintenance Results * XR SHOULDER 1 VIEW LEFT (02/03/2025 9:20 AM CDT)Anatomical RegionLaterality ModalitySHOULDERS, SHOULDER LDigital RadiographySpecimen (Source)Anatomical Location / LateralityCollection Method / VolumeCollection TimeReceived Time 02/04/2025 6:18 AM CDT Impressions 02/04/2025 6:18 AM CDT Negative axillary view of the left shoulder Dictated by Ramirez Bryant MD @ 02/04/2025 6:18:27 AM (Electronically Signed) Narrative 02/04/2025 6:18 AM CDT For Patients: As a result of the Cures Act, medical imaging exams and procedure reports are released immediately into your electronic medical record. You may view this report before your referring provider. If you have questions, please contact your health care provider. INDICATION: Left shoulder pain TECHNIQUE: Axillary view of the left shoulder COMPARISON: Left shoulder x-rays 01/20/2025 FINDINGS: Humeral head anatomically aligned with the glenoid. Glenohumeral joint unremarkable. Procedure Note Ramirez Bryant MD - 02/04/2025 For Patients: As a result of the s Act, medical imagingexams and procedure reports are released immediately into your electronicmedical record. You may view this report before your referring provider.If you have questions, please contact your health care provider. INDICATION: Left shoulder pain TECHNIQUE: Axillary view of the left shoulder COMPARISON: Left shoulder x-rays 01/20/2025 FINDINGS: Humeral head anatomically aligned with the glenoid. Glenohumeral joint unremarkable. IMPRESSION: Negative axillary view of the left shoulder Dictated by Ramirez Bryant MD @ 02/04/2025 6:18:27 AM (Electronically Signed) Authorizing ProviderResult TypeResult StatusThomas Ted Chester MDGENERAL IMAGING Final Result * MR SHOULDER LEFT WO (01/29/2025 3:09 PM CDT)Anatomical RegionLaterality ModalitySHOULDER LMagnetic ResonanceSpecimen (Source)Anatomical Location / LateralityCollection Method / VolumeCollection TimeReceived Time01/31/2025 10:09 AM CDT Impressions 01/31/2025 10:09 AM CDT 1. Trace subacromial/subdeltoid bursitis. 2. Mild AC DJD. 3. Minor biceps tenosynovitis. 4. Intact rotator cuff. Dictated by Bobby Nesbitt MD @ Jan 31 2025 10:08AM (Electronically Signed) Narrative 01/31/2025 10:09 AM CDT ----- ADDENDUM ----- EXAM: MRI OF THE LEFT SHOULDER, WITHOUT CONTRAST CLINICAL INDICATION: Shoulder pain. Injury. PRIOR SURGERY: None reported. COMPARISON PLAIN FILMS: 20 January 2025. COMPARISON CROSS-SECTIONAL IMAGING STUDIES: None available at time of interpretation. TECHNICAL: Axial, sagittal oblique and coronal oblique T1, PD, PD FS and T2-weighted images. FINDINGS: GLENOHUMERAL JOINT: Effusion/Cyst: Physiologic quantity of joint fluid. No synovitis. No paralabral or periarticular cyst or ganglion. Humeral Head Articular Cartilage: No osteochondral lesion or abnormality. Glenoid Articular Cartilage: No osteochondral lesion or abnormality. Loose Bodies: No appreciable loose bodies. Capsule: No convincing evidence of adhesive capsulitis or capsular injury. OSSEOUS STRUCTURES: No fracture, marrow edema or marrow replacement process. CORACOACROMIAL ARCH: Acromial Morphology: Type 2 acromial morphology. No abnormal lateral or anterior downward sloping of the acromion. No os acromiale. No significant subacromial spur. Lateral acromial thickness is 6 mm. Acromiohumeral Interval: The acromiohumeral interval is adequately patent. At its narrowest, the interval measures 7 mm. No abnormal thickening of the coracoacromial ligament. Coracohumeral Interval: The coracohumeral interval is normal. At its narrowest, the coracohumeral interval measures 10 mm. Coracoid index is less than 10 mm. ACROMIOCLAVICULAR JOINT REGION: AC Joint: Mild edematous capsular hypertrophy. Shallow subchondral cysts and edema distal clavicle.No significant osteophytes or joint space widening. Ligaments: The coracoclavicular ligaments are intact. BURSAE: Subacromial-Subdeltoid: Thin line of fluid under the proximal anterior deltoid. Subcoracoid: No abnormal bursal edema, thickening or bursal fluid. ROTATOR CUFF TENDONS AND MUSCLES AND DELTOID: Supraspinatus: No tendinosis, tendon tearing, muscle atrophy or muscle edema. Infraspinatus: No tendinosis, tendon tearing, muscle atrophy or muscle edema. Teres Minor: No tendinosis, tendon tearing, muscle atrophy or muscle edema. Subscapularis: No tendinosis, tendon tearing, muscle atrophy or muscle edema. Deltoid: No muscle atrophy or edema. BICEPS TENDON, LONG HEAD: The long head of the biceps tendon is appropriately positioned within the bicipital groove without tendon subluxation or dislocation. The biceps velma mechanism is intact. The biceps anchor appears grossly intact. There is no significant tendinosis or tendon tearing. Small volume circumferential fluid proximal biceps tendon sheath. GLENOID LABRUM: Within the limitations of non-arthrographic technique, the superior labrum and biceps-labral complex are intact. The anteroinferior labrum is intact without Bankart or Bankart-variant labral tear. The remainder of the labrum is similarly intact. OTHER FINDINGS: There is no abnormality within the suprascapular or spinoglenoid notches nor within the quadrilateral space. No axillary adenopathy or mass. Procedure Note Bobby Nesbitt MD - 01/31/2025 ----- ADDENDUM ----- EXAM: MRI OF THE LEFT SHOULDER, WITHOUT CONTRAST CLINICAL INDICATION: Shoulder pain. Injury. PRIOR SURGERY: None reported. COMPARISON PLAIN FILMS: 20 January 2025. COMPARISON CROSS-SECTIONAL IMAGING STUDIES: None available at time of interpretation. TECHNICAL: Axial, sagittal oblique and coronal oblique T1, PD, PD FS and T2-weightedimages. FINDINGS: GLENOHUMERAL JOINT: Effusion/Cyst: Physiologic quantity of joint fluid. No synovitis. Noparalabral or periarticular cyst or ganglion. Humeral Head Articular Cartilage: No osteochondral lesion orabnormality. Glenoid Articular Cartilage: No osteochondral lesion or abnormality. Loose Bodies: No appreciable loose bodies. Capsule: No convincing evidence of adhesive capsulitis or capsularinjury. OSSEOUS STRUCTURES: No fracture, marrow edema or marrow replacement process. CORACOACROMIAL ARCH: Acromial Morphology: Type 2 acromial morphology. No abnormal lateral oranterior downward sloping of the acromion. No os acromiale. No significantsubacromial spur. Lateral acromial thickness is 6 mm. Acromiohumeral Interval: The acromiohumeral interval is adequately patent.At its narrowest, the interval measures 7 mm. No abnormal thickening ofthe coracoacromial ligament. Coracohumeral Interval: The coracohumeral interval is normal. At itsnarrowest, the coracohumeral interval measures 10 mm. Coracoid index isless than 10 mm. ACROMIOCLAVICULAR JOINT REGION: AC Joint: Mild edematous capsular hypertrophy. Shallow subchondral cystsand edema distal clavicle. No significant osteophytes or joint spacewidening. Ligaments: The coracoclavicular ligaments are intact. BURSAE: Subacromial-Subdeltoid: Thin line of fluid under the proximal anteriordeltoid. Subcoracoid: No abnormal bursal edema, thickening or bursal fluid. ROTATOR CUFF TENDONS AND MUSCLES AND DELTOID: Supraspinatus: No tendinosis, tendon tearing, muscle atrophy or muscleedema. Infraspinatus: No tendinosis, tendon tearing, muscle atrophy or muscleedema. Teres Minor: No tendinosis, tendon tearing, muscle atrophy or muscleedema. Subscapularis: No tendinosis, tendon tearing, muscle atrophy or muscleedema. Deltoid: No muscle atrophy or edema. BICEPS TENDON, LONG HEAD: The long head of the biceps tendon is appropriately positioned within the bicipital groove without tendon subluxation or dislocation. The bicepspulley mechanism is intact. The biceps anchor appears grossly intact.There is no significant tendinosis or tendon tearing. Small volumecircumferential fluid proximal biceps tendon sheath. GLENOID LABRUM: Within the limitations of non-arthrographic technique, the superior labrumand biceps-labral complex are intact. The anteroinferior labrum is intactwithout Bankart or Bankart-variant labral tear. The remainder of thelabrum is similarly intact. OTHER FINDINGS: There is no abnormality within the suprascapular or spinoglenoid notchesnor within the quadrilateral space. No axillary adenopathy or mass. IMPRESSION: 1. Trace subacromial/subdeltoid bursitis. 2. Mild AC DJD. 3. Minor biceps tenosynovitis. 4. Intact rotator cuff. Dictated by Bobby Nesbitt MD @ Jan 31 2025 10:08AM (Electronically Signed) Authorizing ProviderResult TypeResult StatusAdei Jemal DOMREdited Result - Final * (ABNORMAL) LIPID PANEL W REFLEX MEASURED LDL (08/02/2024 9:47 AM CDT)Component ValueRef RangeTest MethodAnalysis TimePerformed AtPathologist Signature CHOLESTEROL, YVYVL257(H)<200 mg/dLQuest Zuffle-Symptify [facility] HospitaleHDL ZYTYEJDSCDY80 > OR = 40 mg/dLQuest Zuffle-Symptify EdoaJTOLJQFDGGOQK048(H)<150 mg/dLQuest Areshay [facility] HospitaleComment: If a non-fasting specimen was collected, consider repeat triglyceride testing on a fasting specimen if clinically indicated. Jason et al. J. of Clin. Lipidol. 2015;9:129-169. LDL-QFEDNEZJWVO968(H)mg/dL (calc)[facility] SplotherRed Lake Indian Health Services HospitaleComment: Reference range: <100 Desirable range <100 mg/dL for primary prevention; <70 mg/dL for patients with CHD or diabetic patients with > or = 2 CHD risk factors. LDL-C is now calculated using the Ciara calculation, which is a validated novel method providing better accuracy than the Friedewald equation in the estimation of LDL-C. Kwame SS et al. ALBERTA. 2013;310(19): 7506-8054 (http://education.Stagee/faq/NPE110) CHOL/HDLC RATIO5.3(H)<5.0 (calc)Power Vision-Symptify [facility]S HospitaleNON HDL CHOLESTEROL 202(H)<130 mg/dL (calc)MIGSIF [facility] HospitaleComment: For patients with diabetes plus 1 major ASCVD risk factor, treating to a non-HDL-C goal of <100 mg/dL (LDL-C of <70 mg/dL) is considered a therapeutic option. Specimen (Source)Anatomical Location / LateralityCollection Method / Volume Collection TimeReceived TimeBloodBLOOD SPECIMEN / Oyatzbu6808/02/2024 9:47 AM CDT 08/02/2024 9:47 AM CDT Narrative [facility] - 08/03/2024 3:17 AM CDT FASTING:NO FASTING: NO Authorizing ProviderResult TypeResult StatusAdei Jemal DOCHEMISTRYFinal Result Performing OrganizationAddressCity/State/ZIP CodePhone Number [employer] [facility] [address] [place] [address], [facility] [address] [place] [address] * ANTI HIV 1/2 [40215.0] (08/02/2024 9:47 AM CDT)ComponentValueRef RangeTest MethodAnalysis TimePerformed AtPathologist SignatureHIV AG/AB, 4TH GEN TOV-TIRDWJADKYB-GPBQUSWVEprdi Diagnostics-[facility] HospitaleComment: HIV-1 antigen and HIV-1/HIV-2 antibodies were not detected. There is no laboratory evidence of HIV infection. PLEASE NOTE: This information has been disclosed to you from records whose confidentiality may be protected by state law. ??If your state requires such protection, then the state law prohibits you from making any further disclosure of the information without the specific written consent of the person to whom it pertains, or as otherwise permitted by law. A general authorization for the release of medical or other information is NOT sufficient for this purpose. ?? For additional information please refer to http://education.Softheon/faq/MXS254 (This link is being provided for informational/ educational purposes only.) The performance of this assay has not been clinically validated in patients less than 2 years old. Specimen (Source)Anatomical Location / LateralityCollection Method / Volume Collection TimeReceived TimeBloodBLOOD SPECIMEN / Ntyejhd9008/02/2024 9:47 AM CDT 08/02/2024 9:47 AM CDT Narrative [facility] - 08/05/2024 12:36 PM CDT FASTING:NO FASTING: NO Authorizing ProviderResult TypeResult StatusAdei Shaqra DOSEND OUTSFinal Result Performing OrganizationAddressCity/State/ZIP CodePhone Number [employer] [facility] [address] [place] [address], [facility] [address] [place] [address] * ANTI HCV (02/22/2022 8:43 AM CDT)ComponentValueRef RangeTest MethodAnalysis TimePerformed AtPathologist SignatureHEPATITIS C ANTIBODYNon-Reactive Non-Zaxvvubb38/12/2022 3:50 PM CDTALMAYO CLINIC [facility] Comment:Antibodies to HCV not detected; does not exclude the possibility of exposure to HCV.Specimen (Source)Anatomical Location / LateralityCollection Method / VolumeCollection TimeReceived TimeBloodBLOOD SPECIMEN / Unknown Venipuncture / Rqgghia6402/22/2022 8:43 AM CDT1 8:45 AM CDT Narrative Authorizing ProviderResult TypeResult StatusLeonor Delgado MDSEND OUTSFinal ResultPerforming OrganizationAddressCity/State/ZIP CodePhone Number [facility] [address] [place] [address], [place] * COLONOSCOPY (08/31/2021 1:38 PM CDT)Specimen (Source)Anatomical Location / LateralityCollection Method / VolumeCollection TimeReceived Time08/31/2021 1:38 PM CDT Narrative Transcriptions Yoan Santos MD - 08/31/2021 8:22 PM CDT [facility] Patient Name: Kaiden Reyna Procedure Date: 08/31/2021 Gender: Male Date of : 1975 Admit Type: Ambulatory Procedure: Colonoscopy Proceduralist: Yoan Santos MD - [facility] [place] [address] [facility] [place] [address] Indications/Pre-Op Diagnosis: Screening for colorectal malignantneoplasm Medications: [...] to home. - Return to clinic at [facility] as scheduled. - Repeat colonoscopy for colorectal cancer screening in 10 years. Yoan Santos MD 08/31/2021 8:21:53 PM This report has been signed electronically. Note Initiated On: 08/31/2021 1:38 PM Authorizing ProviderResult TypeResult StatusNicewa Santos MDPROCEDURE ORDFinal Result from Last 3 Months or Most Recently Relevant to Health Maintenance Additional Health Concerns InfectionOnset DateLast IndicatedMRSA Clearance Comment:Infection Control Note: Hx of MRSA nares 01/11/2014, surveillance criteria met, no need for further testing or isolation precautions. Do not delete or resolve the infection flag. Insurance Advance Directives * Full Code (Latest Code Status on File) Date ActivatedDate InactivatedComments10/25/2022 9:26 AM10/30/2022 4:23 PMQuestion AnswerCommentsCode Status Discussion:* Reviewed Preferences * Full Code Date ActivatedDate InactivatedComments08/31/2021 9:44 AM08/31/2021 5:29 PMQuestion AnswerCommentsCode Status Discussion:* Reviewed Preferences Care Teams Team MemberRelationshipSpecialtyStart DateEnd Date Amy Joaquin [place] [address] [address] PCP - GeneralFamily Practice08/02/24
--- OUTSIDE RECORDS SUMMARY | 2025-04-30 11:44 | XMS_ITS | Clinical Summary ---
Author Organization [facility] Address [address] [place] [address] Care Team Providers Care Fish Bait Picker Name Role Phone Christine Marr MD Primary Care Provide r Allergies Active AllergyReactionsCriticalityNoted DateComments Sulfamethoxazole-NrcoccregmkpVxietbrulsmFeww73/30/2015 Angioedema BuaomrqikwyRsipnjmvaxtQbeu89/30/2015 Angioedema KmzbbtjtmfwkjqoZdslz81/30/8875ZdigppaivneSttsxzlzdcyZtoh69/14/2013Vancomycin CwdwjgpdvqwAslr10/24/2013 Medications MedicationSigDispense QuantityRefillsLast FilledStart DateEnd DateStatus ASPIRIN NOT PRESCRIBED, INTENTIONAL, Indications:Diabetes mellitus, type 2 (H)1 each continuous prn for other Antiplatelet medication not prescribed intentionally due to 0 each ctive STATIN NOT PRESCRIBED, INTENTIONAL, Indications:Diabetes mellitus, type 2 (H)1 each daily Statin not prescribed intentionally due to Other: 0 each ctive KERA NOT PRESCRIBED, INTENTIONAL, Indications:Diabetes mellitus, type 2 (H)1 each daily KERA Inhibitor not prescribed due to Other: 0 each ctive erythromycin (ROMYCIN) ophthalmic ointment Indications:Periorbital cellulitis of left eyePlace 1 Application Into the left eye 4 times daily 1 g ctive doxycycline (VIBRA-TABS) 100 MG tablet Indications:Periorbital cellulitis of left eyeTake 1 tablet (100 mg) by mouth 2 times daily 14 tablet ctive HYDROcodone-acetaminophen (NORCO) 5-325 MG per tablet Indications:Low back painTake 1 tablet by mouth every 6 hours as needed for moderate to severe pain 20 tablet ctive Active Problems ProblemNoted DateDiagnosed DateType 2 diabetes mellitus without complications 06/06/2014GERD (gastroesophageal reflux disease)10/30/2013CARDIOVASCULAR SCREENING; LDL GOAL LESS THAN 350253157Wpldwhftvyyzfib27/26/2013MRSA cellulitis Resolved Problems ProblemNoted DateDiagnosed DateResolved DateDiabetes mellitus, type 2; BP Goal <140/9006Cellulitis and Immunizations ImmunizationAdministration DatesNext DueTDAP (Adacel,Boostrix)05/15/2008 Family History Medical HistoryRelationCommentsCancerMaternal GrandfatherLung CancerAutoimmune DiseaseMaternal GrandmotherAutoimmune hepatitisAutoimmune DiseaseMother autoimmune hepC.A.D.MotherLiver DiseaseMotherLupusMotherC.A.D.Paternal GrandfatherDiabetesPaternal GrandfatherDiabetesPaternal GrandmotherLiver Disease Paternal GrandmotherCancerSister 4Uterine CancerRelationStatusCommentsDaughter AliveFatherDeceasedMaternal GrandfatherDeceasedMaternal GrandmotherDeceased MotherAlivePaternal GrandfatherDeceasedPaternal GrandmotherDeceasedSister 1Alive Sister 2AliveSister 3AliveSister 4 Social History Tobacco UseTypesPacks/DayYears UsedDateSmoking Tobacco: NeverSmokeless Tobacco: NeverAlcohol UseStandard Drinks/WeekCommentsNo0 (1 standard drink = 0.6 oz pure alcohol)Adolescent EducationAnswerDate RecordedGetting School Help NeededNot on file02/03/2023Sex and Gender InformationValueDate RecordedSex Assigned at Not on fileLegal HtgYfav2710/26/2012 1:43 AM CDTGender IdentityNot on fileSexual OrientationNot on fileOccupationIndustryJob Start DateJob End DateNot on fileNot on fileNot on fileNot on file Last Filed Vital Signs Vital SignReadingTime TakenCommentsBlood Amnjbihk933/8602 1:43 PM COLD ROLLING COORDINATOR Siajk68874 1:43 PM MQOLtatanpclhk06.7 ??C (98 ??F)06/23/2014 1:43 PM COLD ROLLING COORDINATOR Respiratory Cpku274406/23/2014 1:43 PM CSTOxygen Ftfpzphfpk85%06/23/2014 1:43 PM CSTInhaled Oxygen Concentration--Vuorrs106.8 kg (255 lb 5 oz)06/23/2014 1:43 PM XEVTnlfav847.3 cm (5' 9)06/20/2014 4:01 PM CSTBody Mass Index37.7006/20/2014 4:01 PM COLD ROLLING COORDINATOR Plan of Treatment Health MaintenanceDue DateLast DoneCommentsADVANCE CARE OQMAXZNX10/06/1978ANNUAL REVIEW OF HM UUKJTX52 1977CT ADURPXFVJFOR73/06/1978EYE EXAM1977FLEX SIG 1977sDNA (Cologuard)1977 4276OFQDSTDRCQJB56/26/LIPID 07/26//5244I8G33/17/, 07/26/2013, 11/07/2012, Additional history wywyomUGK40/29/DIABETIC FOOT EXAM05/30/BMP , 01/10/2014, 01/09/2014, Additional history exists PNEUMOCOCCAL VACCINE: PEDIATRICS (0 to 5 YEARS) AND AT-RISK PATIENTS (6 to 49 YEARS) (2 of 2 - PCV)YEARLY PREVENTIVE VISIT01/14/2021 01/15/2020, 11/07/20128559WRASFAXBDRD54, 01/17/2014COLORECTAL CANCER AGLFVROCT50/05/2024PHQ-2 (once per calendar year)5COVID-19 VACCINE ( season), 04/16/2021, 09/21/2020, Additional history existsINFLUENZA VACCINE (#1)/, 04/06/2022, 04/16/2021, Additional history existsZOSTER VACCINE (1 of 2)2027 DTAP/TDAP/TD VACCINE (5 - Td or Tdap)8007/22/2017, 09/08/2008, 09/08/2008, Additional history existsHEPATITIS C QDZINCRGZEfpzwwudn73/26/2013HIV XAHVFHKHKCzasanmsq82/26/2013HEPATITIS B XDHLEBAViflljprq75/05/2021, 01/15/2020, 10/05/2016HPV VACCINE (No Doses Required)CompletedMENINGITIS VACCINEAged OutNo longer eligible based on patient's age to complete this topic Procedures Procedure NamePriorityDate/TimeAssociated DiagnosisCommentsBASIC METABOLIC PANEL STAT06/20/2014 4:42 PM COLD ROLLING COORDINATOR Elevated blood pressure C FOOT HZEOBkobifh69/16/2015 1:50 PM COLD ROLLING COORDINATOR Screening for diabetic peripheral neuropathy HEMOGLOBIN O4HPjljgai05/17/2014 2:42 PM CDT Diabetes mellitus, type 2; BP Goal <140/90 UBNZHDUDQSKSraheyr61/05/2014 11:01 AM CDT OCCULT BLOOD PMMAVTSVP82/29/2014 5:35 AM CDT LIPID SEKNRZGMkyawjb31/14/2014 12:21 PM CDT DM (diabetes mellitus) (H) ALBUMIN AND CREATININE WITH RATIO RANDOM URINE UFDORORIQBWLGwubtdk76/26/2013 3:13 PM CDT DM (diabetes mellitus) (H) HIV 1 AND 2 ANTIBODY (QUEST)Pzbmhwq8111/07/2012 3:12 PM CDT Routine physical examination HEPATITIS C NNWIUBRBNfnhpfs14/26/2013 3:12 PM CDT Routine physical examination from Last 3 Months or Most Recently Relevant to Health Maintenance Results * (ABNORMAL) Basic metabolic panel (06/20/2014 4:42 PM COLD ROLLING COORDINATOR)ComponentValueRef RangeTest MethodAnalysis TimePerformed AtPathologist ViiiwrgsrWemofa857187 - 144 mmol/[facility] HEALTHPotassium3.83.4 - 5.3 mmol/[facility] HEALTHChloride10294 - 109 mmol/[facility] HEALTHCarbon Ytbwcde2343 - 32 mmol/[facility] HEALTHAnion Gap83 - 14 mmol/[facility] HEALTHGlucose105(H)70 - 99 mg/dLNORTHLAND MEDICAL CENTERComment: Effective 12/11/2013, the reference range for this assay has changed to reflect new instrumentation/methodology. Urea Pmpteqvf565 - 30 mg/dLNORTHLAND MEDICAL CENTERComment: Effective 12/11/2013, the reference range for this assay has changed to reflect new instrumentation/methodology. Creatinine1.010.66 - 1.25 mg/dLNORTHLAND MEDICAL CENTERGFR Srpwlpqk67>60 mL/min/1.2n3HBUBDIBZNORTHLAND MEDICAL CENTERComment:Non GFR CalcGFR Estimate If Black>90 GFR Calc >60 mL/min/1.7z8DXRJKSXZNORTHLAND MEDICAL CENTERCalcium9.58.5 - 10.1 mg/dLNORTHLAND MEDICAL CENTERComment: Effective 12/11/2013, the reference range for this assay has changed to reflect new instrumentation/methodology. Specimen (Source)Anatomical Location / LateralityCollection Method / Volume Collection TimeReceived TimeBlood specimen (specimen)06/20/2014 4:42 PM COLD ROLLING COORDINATOR 06/20/2014 4:53 PM COLD ROLLING COORDINATOR Narrative Authorizing ProviderResult TypeResult StatusKarel Mendiola APRN CNPLAB - BLOOD ORDERABLESFinal ResultPerforming OrganizationAddressCity/State/ZIP CodePhone Number [facility] [address] [place] [address] * Hemoglobin A1c (01/29/2014 2:42 PM CDT)ComponentValueRef RangeTest Method Analysis TimePerformed AtPathologist SignatureHemoglobin A1C5.94.3 - 6.0 % [facility] EAGANSpecimen (Source)Anatomical Location / Laterality Collection Method / VolumeCollection TimeReceived TimeBlood specimen (specimen)01/29/2014 2:42 PM CDT01/29/2014 2:44 PM CDT Narrative Authorizing ProviderResult TypeResult StatusChadamaris Marr MDLAB - BLOOD ORDERABLESFinal ResultPerforming OrganizationAddressCity/State/ZIP Code Phone Number [place] [phone] [facility] [place] [address] * COLONOSCOPY (01/17/2014 11:01 AM CDT)ComponentValueRef RangeTest Method Analysis TimePerformed AtPathologist SignatureCOLONOSCOPYFairSt. Mary's Hospital Patient Name: Kaiden Reyna ? Procedure [...] ?oxygen saturations were monitored continuously. The ?PCF-H190L [id number] was introduced through the anus ?and advanced to the cecum, identified by appendiceal orifice & ileocecal valve. The ?colonoscopy was [...] Procedure Duration: 0 hours 11 minutes 35 secondsRADIOLOGY RESULTSSpecimen (Source)Anatomical Location / LateralityCollection Method / VolumeCollection TimeReceived Time01/17/2014 11:01 AM CDT Narrative Authorizing ProviderResult TypeResult StatusChadamaris Marr MDPROCEDURES Final ResultPerforming OrganizationAddressCity/State/ZIP CodePhone Number RADIOLOGY RESULTS * Stool: occult blood (01/10/2014 5:35 AM CDT)ComponentValueRef RangeTest Method Analysis TimePerformed AtPathologist SignatureOccult BloodNegativeNEGM KITTSON MEMORIAL HOSPITALpecimen (Source)Anatomical Location / Laterality Collection Method / VolumeCollection TimeReceived TimeStool specimen (specimen)01/10/2014 5:35 AM CDT01/10/2014 7:01 AM CDT Narrative Authorizing ProviderResult TypeResult StatusLucjohnny Barksdale MDLAB - STOOLS ORDERABLESFinal ResultPerforming OrganizationAddressCity/State/ZIP CodePhone Number [facility] [address] [phone] * (ABNORMAL) Lipid Profile (Chol, Trig, HDL, LDL calc) (07/26/2013 12:21 PM CDT) ComponentValueRef RangeTest MethodAnalysis TimePerformed AtPathologist WbmykspsvArkgqkgrfzx594<200 mg/dLVIRTUA BERLIN EAGANComment: LDL Cholesterol is the primary guide to therapy. The NCEP recommends further evaluation of: patients with cholesterol greater than 200 mg/dL if additional risk factors are present, cholesterol greater than 240 mg/dL, triglycerides greater than 150 mg/dL, or HDL less than 40 mg/dL. Mronnnjkysxng484 - 150 mg/dLVIRTUA BERLIN EAGANHDL Vdfdgwalfdy38(L)>40 mg/dL [facility]ANLDL Cholesterol Hbkoomogbm2098 - 129 mg/dLVIRTUA BERLIN EAGANComment: LDL Cholesterol is the primary guide to therapy: LDL-cholesterol goal in high risk patients is <100 mg/dL and in very high risk patients is <70 mg/dL. VLDL-Nrfhzbvcasb502 - 30 mg/dLVIRTUA BERLIN EAGANCholesterol/HDL Ratio4.90.0 - 5.0[facility] EAGMAY[facility])pecime (Source)Anatomical Location / Laterality Collection Method / VolumeCollection TimeReceived TimeBlood specimen (specimen) 07/26/2013 12:21 PM CDT07/26/2013 12:24 PM CDT Narrative Authorizing ProviderResult TypeResult StatusJensen Melendez MDLAB - BLOOD ORDERABLESFinal ResultPerforming OrganizationAddressCity/State/ZIP CodePhone Number [address] [phone] * Microalbumin quantitative, random urine (11/07/2012 3:13 PM CDT)ComponentValue Ref RangeTest MethodAnalysis TimePerformed AtPathologist SignatureCreatinine Jkaet283ke/dLBALTIMORE VA MEDICAL CENTERAlbumin Urine mg/L<5 Urine Microalbumin lowest reportable value has been changed from 2 mg/L to 5 mg/L due to a methodology change on August.mg/LUNUNIVERSITY OF MARYLAND MEDICAL CENTERAlbumin Urine mg/g CrUnable to calculate0 - 17 mg/g Cr [facility] MEDICAL CENTERSpecimen (Source)Anatomical Location / LateralityCollection Method / VolumeCollection TimeReceived TimeUrine specimen (specimen)11/07/2012 3:13 PM CDT11/07/2012 3:16 PM CDT Narrative Authorizing ProviderResult TypeResult StatusJesnen Melendez MDLAB - URINE ORDERABLESFinal ResultPerforming OrganizationAddressCity/State/ZIP CodePhone Number [facility] [address] [place] [address] * HIV 1 and 2 Antibody (11/07/2012 3:12 PM CDT)ComponentValueRef RangeTest MethodAnalysis TimePerformed AtPathologist SignatureHIV 1&2 AntibodyNegative NEGUNSOUTHWESTERN VER[facility]ONT MEDICAL CENTERpecnorthside hospital cherokee (Source)Anatomical Location / LateralityCollection Method / VolumeCollection TimeReceived Time Blood specimen (specimen)11/07/2012 3:12 PM CDT11/07/2012 3:15 PM CDT Narrative Authorizing ProviderResult TypeResult StatusJensen Melendez MDLAB - BLOOD ORDERABLESFinal ResultPerforming OrganizationAddressCity/State/ZIP CodePhone Number [facility] [address] * Hepatitis C antibody (11/07/2012 3:12 PM CDT)ComponentValueRef RangeTest MethodAnalysis TimePerformed AtPathologist SignatureHepatitis C Antibody NegativeNEGUNSOUTHWESTERN VERMONT MEDICAL CENTERpecimen (Source) Anatomical Location / LateralityCollection Method / VolumeCollection Time Received TimeBlood specimen (specimen)11/07/2012 3:12 PM CDT11/07/2012 3:15 PM CDT Narrative Authorizing ProviderResult TypeResult StatusTyler Stan Melendez MDLAB - BLOOD ORDERABLESFinal ResultPerforming OrganizationAddressCity/State/ZIP CodePhone Number [address] from Last 3 Months or Most Recently Relevant to Health Maintenance Additional Health Concerns InfectionOnset DateLast IndicatedMRSA-Contact Isolation Comment:Skin 12-25-2012 [place] [address] Advance Directives For more information, please contact: [phone] * Full Code (Latest Code Status on File) Date ActivatedDate InactivatedComments10/28/2012 8:54 AM * Full Code Date ActivatedDate InactivatedComments10/26/2012 5:12 AM10/28/2012 8:54 AM Care Teams Team MemberRelationshipSpecialtyStart DateEnd Date Christine Marr MD PCP - GeneralPediatrics01/14/14
--- OUTSIDE RECORDS SUMMARY | 2025-04-30 11:44 | XMS_ITS | Clinical Summary ---
Author Organization [facility] Address [address] [place] [address] Care Team Providers Care Jewelry Racker Name Role Phone Unavailable Primary Care Provider Unavailabl e Source Comments You are receiving this document as you are listed as the primary care provider,follow-up provider, or the patient has been referred to you for consultation.This is in compliance with the Medicare andLima Memorial Hospitalcaid EHR Incentive Program,which states Providers who transition their patient to another setting of careor provider of care or refers their patient to another provider of care shouldprovide summary care record for each transition of care or referral. [facility] Medical CenterConference Hound Allergies Active AllergyReactionsCriticalityNoted GqacQagourgpUiyygjmjykwVysop98/20/2013 Medications MedicationSigDispense QuantityRefillsLast FilledStart DateEnd DateStatus lacosamide (AKA VIMPAT) 100 MG tablet Take by mouth.02/23/2024ctive mirtazapine (REMERON) 15 MG tablet SMARTSI Tablet(s) By Mouth Every Ourvvka4402/10/2024ctive lisinopril (ZESTRIL) 20 MG tablet Take 1 Tablet (20 mg) by mouth daily.12/10/2023ctive BRIVIACT 25 MG tablet Take 1 Tablet (25 mg) by mouth two times a day.02/26/2024ctive Continuous Glucose Sensor (FREESTYLE JAYLEN 14 DAY SENSOR) Apply topically daily.12/15/2023ctive LANTUS SOLOSTAR 100 UNIT/ML pen Inject 40 Units subcutaneously daily.Active SUMAtriptan (IMITREX) 100 MG tablet Take by mouth daily.03/11/2024ctive Active Problems No known active problems Social History Tobacco UseTypesPacks/DayYears UsedDateSmoking Tobacco: NeverSex and Gender InformationValueDate RecordedSex Assigned at BirthNot on fileLegal SexMale 08/30/2014 5:29 AM CDTGender IdentityNot on fileSexual OrientationNot on file Last Filed Vital Signs Vital SignReadingTime TakenCommentsBlood Hhprjqsv262/78010/24/2012 6:17 PM CDT Hgkyg044510/24/2012 6:17 PM IVNXxdoohcenkw11 ??C (98.6 ??F)10/24/2012 6:17 PM CDT Respiratory Mbne573210/24/2012 6:17 PM CDTOxygen Zxazzkjauf54%10/10/2012 5:41 PM CDTInhaled Oxygen Concentration--Rkllfv051.6 kg (268 lb)10/10/2012 7:03 PM CDT Height--Body Mass Index-- Plan of Treatment Health MaintenanceDue DateLast DoneCommentsColon Cancer Screening Plan Due 1977Hep C Screening (Preventive Services)1977HIV Screening (Preventive Services)1993Adult Preventive Visit1995HepB Vaccine (1) 05/20/19969681Qlbgdwfswpb75/06/2013COVID-19 Vaccine ( season)2025 04/15/2022, 04/16/2021, 09/21/2020, Additional history existsInfluenza Vaccine (#1)5106/11/2021, 04/06/2022, 04/16/2021, Additional history exists Zoster/Shingles Vaccine (1 of 2)2027DTaP/Tdap/Td Vaccine (4 - Tdap) , 09/08/2008, 09/08/2008Hib VaccineAged Out09/08/2008No longer eligible based on patient's age to complete this topicHepA VaccineAged Out10/05/2016No longer eligible based on patient's age to complete this topic Pneumococcal VaccineAged Out11/02/2022, 01/15/2020No longer eligible based on patient's age to complete this topicIPV (Polio) VaccineAged OutNo longer eligible based on patient's age to complete this topicMCV4 VaccineAged OutNo longer eligible based on patient's age to complete this topicMeningococcal B VaccineAged OutNo longer eligible based on patient's age to complete this topic Additional Health Concerns InfectionOnset DateLast XohlrwfwnXANV73/09/ Insurance
--- OUTSIDE RECORDS SUMMARY | 2025-04-30 11:44 | XMS_ITS | Clinical Summary ---
Author Organization [facility] Address [address] [place] [id number] Care Team Providers Care Packaging Assembler Name Role Phone Gallo Mejia MD Primary Care Provider Unavail able Buzz Parrish MD Unavailable [phone] Allergies Active AllergyReactionsCriticalityNoted DateCommentsClindamycinAnaphylaxisHigh 06/13/2014 Angioedema LkrehfgvhrdondjEzbri57/30/4271UgymmjyqqgfIeqefv36/03/2022Erythromycin Base 02/20/20221715PsjrkpwjcknEojmIvjpvb72/18/9371GenupgqqqHqrpeqiq74/03/2022enicillins Unknown,SwdbhydbfvcTwwx77/14/2013Potassium JzowdjcpmxeOfdnxvl22/04/2022 Sulfamethoxazole-TrimethoprimAnaphylaxis,AzmreGntk12/23/2015 Angioedema VancomycinUnknown,NgpzihhgwnyIcxt48/24/2013 Medications MedicationSigDispense QuantityRefillsLast FilledStart DateEnd DateStatus omeprazole (PRILOSEC) 40 mg oral delayed release capsule Take 1 capsule (40 mg) by mouth Daily.06/08/2022ctive ondansetron (ZOFRAN) 4 mg oral ODT Take 1 tablet (4 mg) under the tongue every 8 (eight) hours as needed.07/29/2021 Active insulin glargine, pen, (LANTUS SOLOSTAR U-100 INSULIN) 100 unit/mL SubQ pen as directed.07/11/2022ctive TRESIBA FLEXTOUCH U-100 100 unit/mL (3 mL) SubQ InPn INJECT 100 UNITS SUBCUTANEOUSLY IN THE MORNING AND 50 IN THE UXKVBTN6005/03/2022 Active lisinopriL (PRINIVIL) 20 mg oral tablet 4Active rosuvastatin (CRESTOR) 10 mg oral tablet Take 1 tablet (10 mg) by mouth Daily.5Active mirtazapine (REMERON) 15 mg oral tablet TAKE 2 TABLETS BY MOUTH AT NIGHT 180 tablet 5Active propranoloL (INDERAL LA) 60 mg oral extended release capsule 24 HR Take 1 capsule (60 mg) by mouth once daily. 90 capsule 5Active Sumatriptan Succinate 6 mg/0.5 mL SubQ Take 1 injection at the onset of headache. 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 MAY REPEAT AFTER 2 HOURS. MAXIMUM DOSE 200 MG/ 24 HOURS 12 tablet 5Active lacosamide (VIMPAT) 100 mg oral tablet Indications:Episode of recurrent major depressive disorder, unspecified depression episode severityTAKE 1 TABLET BY MOUTH IN THE MORNING AND 1 & 1/2 (ONE & ONE-HALF) IN THE EVENING 75 tablet 5Active baclofen (LIORESAL) 10 mg oral tablet Take 1 pill at night 30 tablet 5Active lacosamide (VIMPAT) 100 mg oral tablet Indications:Episode of recurrent major depressive disorder, unspecified depression episode severityTAKE 1 TABLET BY MOUTH IN THE MORNING AND 1 & 1/2 (ONE & ONE-HALF) IN THE EVENING 75 tablet 5Active Active Problems ProblemNoted DateDiagnosed BsztMponhnyr37/25/2024Nonintractable epilepsy without status txurwwppjxk90/21/2023Primary /02/2023utism spectrum disorder requiring support (level 1)08/30/2022eneralized dziombh1707/11/2022 Unspecified adrenocortical jqhlhalfnfwaf44/27/2023Functional abdominal pain cbonbljo30/04/2022ancreatic idbahkqqxwzop39/04/2022Irritable bowel syndrome with both constipation and /18/2022Chronic gfuuchwplvgc70/18/2022 Chronic midline low back pain with iyjvcgoo27/07/2020Peripheral sensory gqareqiufe99/07/2020Varicose veins of bilateral lower extremities with other ftgbqywhytyik84/19/2019Post-concussion tuqviqxs85/10/2016 Overview (11/07/2023): See Neuro visit 07/23/15 Anxiety zlsgckun63/06/2015Recurrent major ztnixkrfju80/06/2015Type 2 diabetes mellitus without dlqfmippbkov94/23/2015GERD (gastroesophageal reflux disease) 10/30/20137121Gxbbrqjjzdktsnm57/26/2013 Immunizations ImmunizationAdministration DatesNext DueDTaP/HIB09/08/2008HIB PRP-T009/08/2008Hep B Adult11/16/2020,01/15/2020HepA/HepB Adult10/05/2016Influenza recombinant (FluBlok Quadrivalent PF)04/11/2022,04/06/2022,04/16/2021,01/15/2020Influenza split virus (Fluzone Quadrivalent PF)04/11/2022,04/06/2022,04/16/2021,01/15/2020 Pfizer 12+ Yrs Bivalent COVID Vaccine (pena cap)2Pneumococcal PCV20 3Pneumococcal Polysaccharide [id number] (Moderna) 12+ Yrs Monovalent COVID Vaccine (accreditation manager)04/16/2021,09/21/2020,08/24/2020Tdap07/22/2017 ,09/08/2008,05/15/2008 Family History Medical HistoryRelationCommentsColon CancerFatherHeart DiseaseMaternal GrandfatherHigh Blood PressureMaternal GrandfatherLung CancerMaternal GrandfatherLiver DiseaseMaternal GrandmotherDiabetesPaternal GrandfatherDiabetes Paternal GrandmotherHeart DiseasePaternal GrandmotherSeizuresSisterRelation StatusCommentsFatherMaternal GrandfatherMaternal GrandmotherPaternal Grandfather Paternal GrandmotherSister Social History Tobacco UseTypesPacks/DayYears UsedDateSmoking Tobacco: NeverSmokeless Tobacco: Never Tobacco Cessation:Counseling Given: No Alcohol UseStandard Drinks/WeekCommentsNot Currently6 (1 standard drink = 0.6 oz pure alcohol)Sex and Gender InformationValueDate RecordedSex Assigned at Not on fileLegal HrfPybw0507/12/2022 12:10 PM CSTGender IdentityNot on fileSexual OrientationNot on file Last Filed Vital Signs Vital SignReadingTime TakenCommentsBlood Sfhbktro676/9707/13/2022 12:37 PM ASSOCIATE DIRECTOR CAREER SERVICES Fzlab77332/01/2023 12:37 PM CSTTemperature--Respiratory Loqu203112/07/2022 10:41 AM CDTOxygen Saturation--Inhaled Oxygen Concentration--Qnzegh405.5 kg (237 lb) 10/22/2024 10:50 AM COHFhtkfv606.3 cm (5' 9)10/22/2024 10:50 AM CDTBody Mass Rrnqh104710/22/2024 10:50 AM CDT Plan of Treatment Health MaintenanceDue DateLast AvfvTevddibzMlhrfihkwap67/06/1978Eye Exam 1975 0786TfeD1X69/06/1978Anxiety Follow-Up (ASUNCION-7)1978Depression Follow- Up (PHQ-9)1978COVID-19 Vaccine ( season)/06/2021, 04/16/2021, 09/21/2020, Additional history existsInfluenza Vaccine (#1) /, 04/11/2022, 04/06/2022, Additional history exists Microalbumin Q12 Month/, 11/07/20124771Mmqdydibtr18/12/2026 09/23/2024, 08/02/2024, 09/27/2023, Additional history existsThyroid-Stimulating Hormone (TSH), 09/29/2022dult Tetanus Okkxtss0107/23/2027 07/22/2017, 09/08/2008, 05/15/2008RSV Vaccines (1 - 1-dose 75+ series)2052 Hepatitis C WjfbydohmJddxtarfp81/11/2022Pneumococcal PzeollbNmiwdcjef59/21/2023, 01/15/2020HPV VaccineAged OutNo longer eligible based on patient's age to complete this topicMeningococcal B VaccineAged OutNo longer eligible based on patient's age to complete this topic Insurance [facility] Address: [address] [id number] Care Teams Team MemberRelationshipSpecialtyStart DateEnd Date Gallo Mejia MD PCP - General07/12/22 Buzz Parrish MD [address] [facility] [address] [place] [address] Neurology07/12/22
[2025-04-30 11:59] VITALS: BP 131/81; PULSE 73; RESP 18; TEMP 36.5; O2SAT 96; BMI 36.2
--- NOTE | 2025-04-30 12:18 | ED.GENADULT ---
HPI - General Adult General Chief complaint: Nausea/Vomiting Stated complaint: Stomach pain Time Seen by Provider: 04/30/25 11:44 History of Present Illness HPI narrative: Patient is a pleasant 49 year white male type 1 diabetic who presents with flu-like symptoms for the last 3 days. He called a tele video visit call today to his clinician who recommend he come to the ER. The patient had a history of pancreatitis in the past has a history of type 1 diabetes currently on insulin. He reports he has been able to eat and drink normally. He woke up 3 days ago feeling ill has had generalized aching, no specific cough no vomiting. Patient was asked to come to the ER. He denies chest pain, denies significant fever. He has a he is afebrile in the ER today. Related Data Home Medications ?Medication ?Instructions ?Recorded ?Confirmed ondansetron 4 mg disintegrating 4 mg PO TID PRN 12/09/21 01/16/25 tablet glucagon 1 mg solution for 1 mg 12/21/21 02/20/22 injection (Glucagon Emergency Kit) ibuprofen 600 mg 12/21/21 02/20/22 insulin glargine 100 unit/mL (3 60 unit subcut BID 10/25/23 01/16/25 mL) subcutaneous pen (Lantus Solostar U-100 Insulin) lacosamide 100 mg tablet 100 mg PO QHS 10/25/23 01/16/25 lisinopril 20 mg tablet 20 mg PO DAILY 10/25/23 01/16/25 mirtazapine 15 mg tablet 30 mg PO QHS 10/25/23 01/16/25 brivaracetam 25 mg tablet 25 mg PO BID 05/01/24 01/16/25 (Briviact) sumatriptan succinate 100 mg tablet 100 mg PO DAILY 05/01/24 01/16/25 rosuvastatin 10 mg tablet 10 mg PO QPM 10/21/24 01/16/25 baclofen 10 mg tablet 10 mg PO QPM 01/16/25 01/16/25 propranolol 60 mg capsule,24 mg PO 01/16/25 hr,extended release Previous Rx's ?Medication ?Instructions ?Recorded ketorolac 10 mg tablet 10 mg PO TID 5 days #15 tabs 10/21/24 rizatriptan 10 mg tablet (Maxalt) 10 mg PO Q2-4H PRN migraine 10/21/24 headache #10 tabs Allergies Allergy/AdvReac Type Severity Reaction Status Date / Time sulfamethoxazole (From Allergy Mild Verified 01/16/25 09:35 Bactrim) trimethoprim (From Bactrim) Allergy Mild Verified 01/16/25 09:35 clindamycin Allergy Verified 01/16/25 09:35 diphenhydramine Allergy Verified 01/16/25 09:35 dulaglutide Allergy Verified 01/16/25 09:35 erythromycin base Allergy Verified 01/16/25 09:35 Penicillins Allergy Verified 01/16/25 09:35 vancomycin Allergy Verified 01/16/25 09:35 Review of Systems Status of ROS: Reports: 6 or more systems reviewed and unremarkable except as noted in History and below PFSH [facility] Medical History Chronic pancreatitis ?K86.1 - Other chronic pancreatitis (ICD-10) Pancreatic insufficiency ?K86.89 - Other specified diseases of pancreas (ICD-10) Diabetes mellitus type 2 in obese ?E11.69 - Type 2 diabetes mellitus with other specified complication (ICD-10) ?E66.9 - Obesity, unspecified (ICD-10) Obesity ?E66.9 - Obesity, unspecified (ICD-10) Anxiety ?F41.9 - Anxiety disorder, unspecified (ICD-10) Family History Mother Crohn's disease Autoimmune disease of liver Cirrhosis of liver Father Colon cancer Social History Narrative: He lives in [place] with his and 18-year-old daughter. is healthcare power of sports attorney. 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 He has been temporarily on disability. He does not smoke, drink alcohol or use recreational drugs. Code status is full. Smoking Status: Never smoker Do you use any of these nicotine containing products: None Second hand tobacco smoke exposure: No How often do you have a drink containing alcohol: monthly or less AUDIT-C Alcohol total score: 1 Non-prescribed substance use: marijuana (any form) service: No Exam Narrative: Exam Narrative: Objective: Patient is in no apparent distress Vital signs are normal He is alert orient x3 Noncyanotic HEENT is unremarkable neck is supple chest is clear no rales or wheezing Good peripheral perfusion, patient is ambulatory Const: Vital Signs, click to edit/add: Vital Signs - 24 hr 04/30/25 11:59 04/30/25 13:12 04/30/25 13:15 Temperature 97.7 F Pulse Rate 68 72 Pulse Rate [Pulse Oximeter] 73 Respiratory Rate 18 Blood Pressure [Ri ght Upper Arm] 131/81 Pulse Oximetry 96 96 94 Course Vital Signs Vital signs: Initial Vital Signs Temperature 97.7 F 04/30/25 11:59 Temperature Source Temporal Artery Scan 04/30/25 11:59 Pulse Rate 73 04/30/25 11:59 Respiratory Rate 18 04/30/25 11:59 Blood Pressure 131/81 04/30/25 11:59 Blood Pressure Mean 97 04/30/25 11:59 Blood Pressure Position Sitting 04/30/25 11:59 Pulse Oximetry 96 04/30/25 11:59 Vital Signs Temperature 97.7 F 04/30/25 11:59 Pulse Rate 73 04/30/25 11:59 Respiratory Rate 18 04/30/25 11:59 Blood Pressure 131/81 04/30/25 11:59 Pulse Oximetry 96 04/30/25 11:59 Temperature 97.7 F 04/30/25 11:59 Pulse Rate 72 04/30/25 13:15 Respiratory Rate 18 04/30/25 11:59 Blood Pressure 131/81 04/30/25 11:59 Pulse Oximetry 94 04/30/25 13:15 Medical Decision Making MDM Narrative Medical decision making narrative: 49-year-old male insulin and diabetic with viral type illness likely influenza a. Patient will get viral studies as mentioned above will review that is a return. Because diabetic will get a heme 4 basic 7 a CRP. I do not think he needs IV fluids as he is able to drink and eat normally. Disposition pending findings. He is likely too many days out to start Tamiflu, and I do not think that be that helpful at this stage anyway as he says feels somewhat better. Addendum 1:12 p.m.: The patient's lab studies look reassuring except for his blood sugar 357, he is wearing a continuous monitor and it is down to 266 now. He has insulin at home that he takes any like to just maintain his regimen. His other lab studies look reassuring. White count hemoglobin are normal, sodium is a little low 131 but otherwise ER profile is negative, CRP is 1 and normal, viral studies negative as mention. Rest, fluids observation Tylenol Advil as needed continue to monitor sugar carefully and treat accordingly, follow-up with primary care as needed, return to ED as needed. Lab Data Labs: Lab Results 04/30/25 04/30/25 Range/Units 12:02 12:38 WBC 5.66 (4.50-11.00) K/uL RBC 4.98 (4.30-5.90) m/uL Hgb 15.0 (13.5-17.5) gm/dL Hct 44.9 (37.0-53.0) % MCV 90 (80-100) fL MCH 30 (26-34) pg MCHC 33 (32-36) gm/dL RDW Coeff of Usman 11.8 (11.5-15.5) % Plt Count 192 (140-440) K/uL Neut % (Auto) 63.6 (42.0-72.0) % Lymph % (Auto) 24.9 (20-44) % Wright % (Auto) 9.5 (0.0-11.0) % Eos % (Auto) 1.4 (0.0-7.0) % Baso % (Auto) 0.4 (0.0-3.0) % Neut # (Auto) 3.60 (1.7-7.0) K/uL Lymph # (Auto) 1.41 (0.90-2.90) K/uL Wright # (Auto) 0.50 (0.00-0.90) K/UL Eos # (Auto) 0.08 (0.00-0.50) K/uL Baso # (Auto) 0.02 (0.00-0.30) K/uL Abs Immat Gran (auto) 0.01 (0.00-0.30) K/uL Imm/Tot Granulo (auto) 0.2 % Sodium 131 L (135-149) mmol/L Potassium 4.8 (3.6-5.1) mmol/L Chloride 99 (96-114) mmol/L Carbon Dioxide 25 (20-32) mmol/L Anion Gap 7 (7-15) mEq/L BUN 21 (5-24) mg/dL Creatinine 0.8 (0.5-1.5) mg/dL Estimated Creat Clear 114.15 Estimated GFR 110 ml/min Glucose 357 H* (60-115) mg/dL Calcium 9.6 (8.4-10.6) mg/dL C-Reactive Protein 1.0 (0.5-1.0) mg/dL Amylase 87 (18-89) U/L SARS-CoV-2 (PCR) Negative SARS-CoV-2 (Negative) Influenza Type A (PCR) Negative PCR FLU A (Negative) Influenza Type B (PCR) Negative PCR FLU B (Negative) RSV (PCR) Negative PCR RSV (Negative) Discharge Plan Discharge Clinical Impression: Acute viral syndrome, Diabetes mellitus type 2 in obese Patient Disposition: Home, Self-Care Condition: Stable Additional Instructions: Light activity, monitor her sugar, adequate fluid intake, Tylenol or Advil as needed. Recheck as needed. Activity Level: Light activity Discharge Diet: Diabetic Prescriptions: No Action lisinopril 20 mg tablet 20 mg PO DAILY mirtazapine 15 mg tablet 30 mg PO QHS insulin glargine [Lantus Solostar U-100 Insulin] 100 unit/mL (3 mL) insulin pen 60 unit subcut BID lacosamide 100 mg tablet 100 mg PO QHS Patient Comments: 2.5 pills per day sumatriptan succinate 100 mg tablet 100 mg PO DAILY Briviact 25 mg tablet 25 mg PO BID rosuvastatin 10 mg tablet 10 mg PO QPM ketorolac 10 mg tablet 10 mg PO TID 5 Days Qty: 15 0RF rizatriptan [Maxalt] 10 mg tablet 10 mg PO Q2-4H PRN (Reason: migraine headache) Qty: 10 2RF Rx Instructions: do not exceed 3 doses per 24 hrs ondansetron 4 mg tablet,disintegrating 4 mg PO TID PRN Patient Comments: DISSOLVE 1 TABLET IN MOUTH EVERY 8 HOURS NEEDED FOR NAUSEA AND VOMITING Glucagon Emergency Kit (human) 1 mg recon soln 1 mg Patient Comments: INJECT 1MG DIRECTED EACH TIME IF NEEDED (SYMPTOMATIC HYPOGLYCEMIA LESS THAN 50 AND NOT RESPONDING TO ORAL GLUCOSE ibuprofen 600 mg propranolol 60 mg capsule,extended release 24 hr PO baclofen 10 mg tablet 10 mg PO QPM Follow Up/Referrals: SHAQRA,ADEI, DO [Primary Care Provider, Family Practice] Stand Alone Forms: MyHealth Info Instructions
[2025-04-30 12:45] LABS: Hematocrit* 44.9 % (37.0-53.0); Hemoglobin* 15.0 gm/dL (13.5-17.5); Immature Granulocytes Abs Auto 0.01 K/uL (0.00-0.30); Immature Granulocytes Pct Auto 0.2 %; Lymphocytes Absolute Auto 1.41 K/uL (0.90-2.90); Mean Corpuscular HGB Conc 33 gm/dL (32-36); Mean Corpuscular Hemoglobin 30 pg (26-34); Mean Corpuscular Volume 90 fL (80-100); RDW Coefficient of Variation % 11.8 % (11.5-15.5); Red Blood Count* 4.98 m/uL (4.30-5.90); White Blood Count* 5.66 K/uL (4.50-11.00)
[2025-04-30 12:49] LABS: Slide Review Reflex No
[2025-04-30 12:51] LABS: PCR FLU A Negative PCR FLU A (Negative); PCR FLU B Negative PCR FLU B (Negative); PCR RSV Negative PCR RSV (Negative); SARS PCR* Negative SARS-CoV-2 (Negative)
[2025-04-30 12:57] LABS: Chloride* 99 mmol/L (96-114)
[2025-04-30 12:58] LABS: Potassium* 4.8 mmol/L (3.6-5.1); Sodium* 131 mmol/L (135-149)
[2025-04-30 13:00] LABS: Blood Urea Nitrogen* 21 mg/dL (5-24); Creatinine* 0.8 mg/dL (0.5-1.5); Est. Creatinine Clearance* 114.15; Estimated Glomerular Filt Rate 110 ml/min
[2025-04-30 13:01] LABS: Anion Gap 7 mEq/L (7-15); Calcium* 9.6 mg/dL (8.4-10.6); Carbon Dioxide* 25 mmol/L (20-32)
[2025-04-30 13:04] LABS: Glucose* 357 mg/dL (60-115)
[2025-04-30 13:12] VITALS: PULSE 68; O2SAT 96
[2025-04-30 13:15] VITALS: PULSE 72; O2SAT 94
== END 2025-04-30 13:22 | disposition home or self-care (01) ==
PROVIDERS: Emergency Provider Family Medicine; PCP Student in an Organized Health Care Education/Training Program
DX: B34.9 Viral infection, unspecified (principal); E11.69 Type 2 diabetes mellitus with other specified complication
CPT/HCPCS: 36415; 80048; 82150; 85025; 86140; 87631; 99284